=== PATIENT | female | born 1940 | race Caucasian/White ===

== ENCOUNTER 2017-07-13 21:09 | Emergency (ER) | payer MEDICARE, OTHER ==
[~2017-07-13] VITALS: Ht 154.9 cm; Wt 72.6 kg
--- OUTSIDE RECORDS SUMMARY | ~2017-07-13 | XMS | Clinical Summary ---
Demographics + + + | Address | [address] | | | [place] [address] | + + + | Home Phone [...] Author + + + | Author | [facility] | + + + | [...] Providers + +------+ + | Care Automotive Service Assistant Name | Role | Phone | + +------+ + | Farooq Wesley DO | PP | | + +------+ + Source Comments OSCAR is fully live on both [facility] Ambulatory and [facility] InPatient.[facility] Allergies + + + + + [...]
--- OUTSIDE RECORDS SUMMARY | ~2017-07-13 | XMS | Clinical Summary ---
Demographics + + + | Address | [address] | | | [place] [address] | + + + | Home Phone | | + + + | Preferred Language | Unknown | + + + | Marital Status | | + + + | Yarsani Affiliation | 1028 | + + + | Race | Unknown | + + + | Ethnic Group | Unknown | + + + Author + + + | Author | [facility] | + + + | Organization | [facility] | + + + | Address | Unknown | + + + | Phone | Unavailable | + + + Support + + +---------+ + | Name | Relationship | Address | Phone | + + +---------+ + | Prashanth Casey | ECON | Unknown | | + + +---------+ + Care Team Providers + +------+ + | Care Soda Maker Name | Role | Phone | [...] + + + + + + | [place] Extract | Hives | High | 09/14/20 [...] RE | | | | [place] [address] | | | IP-OP | | | [...] | Self | [birth year] | Home: | [address] | | | al/Fam | | 1941 | [phone] | [place] | | | [place] | | | [phone] | [phone] | + +--------+ +--------+ + +"
--- OUTSIDE RECORDS SUMMARY | ~2017-07-13 | XMS | Clinical Summary ---
Demographics + + + | Address | [address] | | | [place] [address] | + + + | Home Phone | | + + + | Preferred Language | Unknown | + + + | Marital Status | | + + + | Jew Affiliation | 1028 | + + + | Race | Unknown | + + + | Ethnic Group | Unknown | + + + Author + + + | Author | [facility] | | | and [place] | + + + | Organization | [facility] | | | and [place] | + + + | Address | Unknown | + + + | Phone | Unavailable | + + + Support + + + + + | Name | Relationship | Address | Phone | + + + + + | Prashanth Casey | ECON | [address] | | | | | [place] | | | | | [address] | | + + + + + Care Team Providers + +------+ + | Care Machine Sorter Name | Role | Phone | + [...] + + + + + + | [place] | Hives, Rash | Low | 03/04/20 [...] | MODA | [phone] | Indemn | [phone] | [address] [address] | | | HEALTH | | ity | [phone] | [place] [address] | | | MDCR | | | [...] | Self | [birth year] | Home: | [address] | | | al/Fam | | 1941 | [phone] | [place] | | | [place] | | | [phone] | [phone] | + +--------+ +--------+ + +
--- OUTSIDE RECORDS SUMMARY | ~2017-07-13 | XMS | Clinical Summary ---
Demographics + + + | Address | [address] | | | [place] [address] | + + + | Home Phone | | + + + | Preferred Language | Unknown | + + + | Marital Status | | + + + | Mormonism Affiliation | 1028 | + + + | Race | Unknown | + + + | Ethnic Group | Unknown | + + + Author + + + | Author | [facility] | + + + | Organization | [facility] | + + + | Address | Unknown | + + + | Phone | Unavailable | + + + Support + + +---------+ + | Name | Relationship | Address | Phone | + + +---------+ + | Prashanth Casey | ECON | Unknown | | + + +---------+ + Care Team Providers + +------+ + | Care Upholstery Parts Sorter Name | Role | Phone | [...] + + + + + + | [place] Extract | Hives | High | 09/14/20 [...] RE | | | | [place] [address] | | | IP-OP | | | [...] | Self | [birth year] | Home: | [address] | | | al/Fam | | 1941 | [phone] | [place] | | | [place] | | | [phone] | [phone] | + +--------+ +--------+ + +"
--- OUTSIDE RECORDS SUMMARY | ~2017-07-13 | XMS | Clinical Summary ---
Demographics + + + | Address | [address] | | | [place] [address] | + + + | Home Phone [...] + | Prashanth Casey | ECON | [address] | | | | | [place] | | | | | [address] | | + + + + + Care Team Providers + +------+ + | Care Stereotyper Apprentice Name | Role | Phone | [...] + + + + + + | [place] | Hives, Rash | Low | 03/04/20 [...] | MODA | [phone] | Indemn | [phone] | [address] [address] | | | HEALTH | | ity | [phone] | [place] [address] | | | MDCR | | | [...] | Self | [birth year] | Home: | [address] | | | al/Fam | | 1941 | [phone] | [place] | | | [place] | | | [phone] | [phone] | + +--------+ +--------+ + +
--- OUTSIDE RECORDS SUMMARY | ~2017-07-13 | XMS | Clinical Summary ---
Demographics + + + | Address | [address] | | | [place] [address] | + + + | Home Phone | | + + + | Preferred Language | Unknown | + + + | Marital Status | Single | + + + | Hinduism Affiliation | Unknown | + + + | Race | Unknown | + + + | Ethnic Group | Other Race | + + + Author + + + | Author | [facility] | + + + [...] Team Providers + +------+ + | Care Instrumentation Controls Engineer Name | Role | Phone | + +------+ + | Farooq Wesley DO | PP | | + +------+ + Source Comments OSCAR is fully live on both [facility] Ambulatory and [facility] InPatient.[facility] Allergies + + + + + [...]
[~2017-07-13 21:09] MED LIST: ANTIVERT25 MG PO; ASPIRIN EC81 MG PO; COUMADIN5 MG PO; CYCLOBENZAPRINE10 MG PO; CYCLOBENZAPRINE5 MG PO; DOK250 MG PO; HYDROCODON-ACE1 EA11 PO; LIPITOR10 MG PO; LOSARTAN-HCTZ1 EAC1 PO; LOVENOX30 MG SUB-Q; METFORMIN HCL1000 MG PO; METOPROLOL TART25 MG PO; MIRALAX17 GM PO; NEXIUM20 MG PO; NUCYNTA50 MG PO; OXYCODONE HCL5 MG PO; SILVADENE20 GM TOP; SYNTHROID75 MCG PO; XARELTO10 MG PO
[2017-07-13] MEDS ORDERED: CEPHALEXIN500 MG PO (22:10)
[2017-07-15] MEDS ORDERED: DECADRON4 MG PO (06:55)
== END 2017-07-13 22:29 | disposition home or self-care (01) ==
LOC: ED 21:09
DX: J98.8 Other specified respiratory disorders (principal); B97.89 Other viral agents as the cause of diseases classified elsewhere; H66.92 Otitis media, unspecified, left ear; I10 Essential (primary) hypertension; E03.9 Hypothyroidism, unspecified; E11.9 Type 2 diabetes mellitus without complications; Z88.8 Allergy status to other drugs, medicaments and biological substances; Z88.2 Allergy status to sulfonamides; Z91.018 Allergy to other foods; Z88.0 Allergy status to penicillin; Z79.899 Other long term (current) drug therapy; Z79.82 Long term (current) use of aspirin
CPT/HCPCS: 99283

== ENCOUNTER → 2017-07-14 | Emergency (ER) | payer MEDICARE, OTHER ==
[~2017-07-14] VITALS: Ht 154.9 cm; Wt 72.6 kg
[~2017-07-14] MED LIST changes: +CEPHALEXIN500 MG PO; +DECADRON4 MG PO
--- OUTSIDE RECORDS SUMMARY | ~2017-07-14 | XMS | Clinical Summary ---
Demographics + + + | Address | [address] | | | [place] [address] | + + + | Home Phone | | + + + | Preferred Language | Unknown | + + + | Marital Status | | + + + | Quaker Affiliation | 1028 | + + + | Race | Unknown | + + + | Ethnic Group | Unknown | + + + Author + + + | Author | [facility] | | | and [place] | + + + | Organization | [facility] | | | and [place] | + + + | Address | Unknown | + + + | Phone | Unavailable | + + + Support + + + + + | Name | Relationship | Address | Phone | + + + + + | Prashanth Casey | ECON | [address] | | | | | [place] | | | | | [address] | | + + + + + Care Team Providers + +------+ + | Care Sole Rounding Machine Operator Name | Role | Phone | + +------+ + | Farooq Wesley DO | PP | Unavailable | + +------+ + Allergies + + + + + + | Active Allergy | Reactions | Severity | Noted | Comments | | | | | Date | | + + + + + + | Cefazolin | Hives, Rash | Low | 03/04/20 | | | | | | 16 | | + + + + + + | Cephalexin | Hives | High | 12/05/19 | Hives in throat | | | | | 16 | | + + + + + + | Iodine | Hives | High | | IV contrast - "I | | | | | | was in the hospital | | | | | | and didn't wake up | | | | | | for three days" | + + + + + + | Meloxicam | Swelling, Rash | High | 03/04/20 | Swelling of throat | | | | | 16 | | + + + + + + | Penicillins | Hives, Swelling | High | | Throat swelling | + + + + + + | Rivaroxaban | Nausea And Vomiting, | High | 03/04/20 | AKA "Xeralto" | | | Swelling | | 16 | | + + + + + + | [place] | Hives, Rash | Low | 03/04/20 | | | | | | 16 | | + + + + + + | Sulfa Antibiotics | Hives, Swelling | High | 11/06/19 | | | | | | 10 | | + + + + + + Current Medications + + +-------+---------+------+------+-------+ | Prescription | Sig. | Disp. | Refills | Star | End | Statu | | | | | | t | Date | s | | | | | | Date | | | + + +-------+---------+------+------+-------+ | aspirin 81 MG | Take 81 mg by mouth | | | 11/21 | | Activ | | tablet | nightly. | | | 05/12 | | e | | | | | | 12 | | | + + +-------+---------+------+------+-------+ | levothyroxine | Take 75 mcg by mouth | | | 10/22 | | Activ | | (SYNTHROID, | Daily. | | | 06/09 | | e | | LEVOTHROID) 75 MCG | | | | 12 | | | | tablet | | | | | | | + + +-------+---------+------+------+-------+ | | Take 1 tablet by | | | | | Activ | | losartan-hydrochloro | mouth Daily. | | | | | e | | thiazide (HYZAAR) | | | | | | | | 100-25 MG per tablet | | | | | | | + + +-------+---------+------+------+-------+ | cyclobenzaprine | Take 5 mg by mouth | | | | | Activ | | (FLEXERIL) 5 MG | nightly as needed. | | | | | e | | tablet | | | | | | | + + +-------+---------+------+------+-------+ | EPINEPHrine | Inject 0.3 mg into | | | | | Activ | | (EPIPEN 2-HOLLEY) 0.3 | the muscle as | | | | | e | | mg/0.3 mL injection | needed. | | | | | | + + +-------+---------+------+------+-------+ | pirbuterol (MAXAIR | Inhale 2 puffs into | | | | | Activ | | AUTOHALER) 200 | the lungs 4 times | | | | | e | | mcg/puff inhaler | daily as needed. | | | | | | + + +-------+---------+------+------+-------+ | Multiple | Take 1 tablet by | | | | | Activ | | Vitamins-Minerals | mouth Daily. | | | | | e | | (MULTIVITAMIN PO) | | | | | | | + + +-------+---------+------+------+-------+ | nitroglycerin | Place 0.4 mg under | | | | | Activ | | (NITROSTAT) 0.4 mg | the tongue every 5 | | | | | e | | SL tablet | minutes as needed. | | | | | | + + +-------+---------+------+------+-------+ | ACCU-CHEK BROOKLYN | | | 6 | 09/1 | | Activ | | PLUS strip | | | | /20 | | e | | | | | | 16 | | | + + +-------+---------+------+------+-------+ | metoprolol | Take 25 mg by mouth | | 1 | 08/2 | | Activ | | succinate | Daily. | | | 0/20 | | e | | (TOPROL-XL) 25 mg 24 | | | | 17 | | | | hr tablet | | | | | | | + + +-------+---------+------+------+-------+ | Aromatic Inhalants | Inhale into the | | | | | Activ | | (INHALER | lungs. | | | | | e | | DECONGESTANT IN) | | | | | | | + + +-------+---------+------+------+-------+ | albuterol | Inhale 2 puffs into | | | | | Activ | | (VENTOLIN HFA) 90 | the lungs every 6 | | | | | e | | mcg/puff inhaler | hours as needed for | | | | | | | | Wheezing. | | | | | | + + +-------+---------+------+------+-------+ | cimetidine | Take 200 mg by mouth | | | | | Activ | | (TAGAMET HB) 200 MG | 4 times daily. | | | | | e | | tablet | | | | | | | + + +-------+---------+------+------+-------+ | Probiotic Product | Take by mouth. 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 | 03/04/2016 | + + + | GERD (gastroesophageal reflux disease) | 03/04/2016 | + + + | Dysphagia | 03/04/2016 | + + + | Diabetes mellitus type 2, controlled (HCC) | 12/05/2015 | + + + | HTN (hypertension) | 12/05/2015 | + + + | Hypothyroidism | 12/05/2015 | + + + | Scar | 12/05/2015 | + + + | OBSTRUCTIVE SLEEP APNEA | 07/01/2010 | + + + | HYPERLIPIDEMIA | | + + + | SLEEP APNEA | | + + + | SCOLIOSIS, THORACIC SPINE | | + + + | MYOFASCIAL PAIN SYNDROME | | + + + | CERVICALGIA | | + + + Immunizations + + + + | Name | Dates Previously Given | Next Due | + + + + | INFLUENZA, | 12/18/2015 | | | UNSPECIFIED | | | | FORMULATION | | | + + + + | PNEUMOCOCCAL | 01/07/2016 | | | CONJUGATE 13-VALENT | | | | (PCV13) | | | + + + + | TDAP, (ADOL/ADULT) | 12/18/2015 | | + + + + Family History + + +------+ + | Medical History | Relation | Name | Comments | + + +------+ + | Other (see comment) | Mother | | osteoporosis | + + +------+ + | Cancer | Paternal | | "stomach" | | | Grandmoth | | | | | er | | | + + +------+ + + +------+--------+ + | Relation | Name | Status | Comments | + +------+--------+ + | Mother | | | | + +------+--------+ + | Paternal Grandmother | | | | + +------+--------+ + Social History + +-------+ +--------+------+ | [...] + +---------+ + | Alcohol Use | Drinks/We | oz/Week | Comments | | | ek | | | + + +---------+ + | Yes | 1-2 | 0.6 - | | | | Glasses | 1.2 | | | | of wine | | | + + +---------+ + + + + | Sex Assigned at | Date Recorded | | | | + + + | Not on file | | + + + Last Filed Vital Signs + + + + | Vital Sign | Reading | Time Taken | + + + + | Blood Pressure | 171/72 | 02/03/2017 1045 PST | + + + + | Pulse | 52 | 02/03/2017 1035 PST | + + + + | Temperature | 36.1 C (97 F) | 02/03/2017 1017 PST | + + + + | Respiratory Rate | 14 | 02/03/2017 1045 PST | + + + + | Oxygen Saturation | 97% | 02/03/2017 1035 PST | + + + + | Inhaled Oxygen | - | - | | Concentration | | | + + + + | Weight | 72.7 kg (160 lb 3.2 | 02/23/20171526 PST | | | oz) | | + + + + | Height | 153.7 cm (5' 0.5") | 02/23/20171526 PST | + + + + | Body Mass Index | 30.77 | 02/23/20171526 PST | + + + + Plan of Treatment + + + + + | Health Maintenance | Due Date | Last Done | Comments | + + + + + | Diabetic Eye Exam | | | | | (Bi-Annually) | 9 | | | + + + + + | Diabetic Foot Exam | | | | | | 9 | | | + + + + + | Hemoglobin A1c Q3 | | | | | Months | 9 | | | + + + + + | Vaccine: | | 01/07/2016 | | | Pneumococcal 65+ | 7 | | | | Low/Medium Risk (2 | | | | | of 2 - PPSV23) | | | | + + + + + | Vaccine: Influenza | | 12/18/2015 | | | (Season Ended) | 8 | | | + + + + + | Vaccine: | | 12/18/2015 | | | Dtap/Tdap/Td (2 - | 6 | | | | Td) | | | | + + + + + Results Not on filefrom Last 3 Months Insurance + +--------+ +--------+ + + | Payer | Benefi | Subscriber | Type | Phone | Address | | | t Plan | ID | | | | | | / | | | | | | | Group | | | | | + +--------+ +--------+ + + | MEDICARE | MEDICA | xxxxxxxxxx | Medica | [phone]- | | | | RE | | re | [phone] | | | | PART A | | | | | | | AND B | | | | | + +--------+ +--------+ + + | MODA | MODA | xxxxxxxxx | Indemn | [phone] | [address] [address] | | | HEALTH | | ity | [phone] | [place] [address] | | | MDCR | | | | | | | SUPPL | | | | | + +--------+ +--------+ + + + +--------+ +--------+ + + | Guarantor Name | Accoun | Relation to | Date | Phone | Billing Address | | | t Type | Patient | of | | | | | | | | | | + +--------+ +--------+ + + | LITA CASEY | Person | Self | [birth year] | Home: | [address] | | | al/Fam | | 1941 | [phone] | [place] | | | [place] | | | [phone] | [phone] | + +--------+ +--------+ + +
--- OUTSIDE RECORDS SUMMARY | ~2017-07-14 | XMS | Clinical Summary ---
Demographics + + + | Address | [address] | | | [place] [address] | + + + | Home Phone [...] Author + + + | Author | [facility] | + + + | Organization | [facility] | + + + | Address | Unknown | + + + | Phone | Unavailable | + + + Support + + +---------+ + | Name | Relationship | Address | Phone | + + +---------+ + | NONE,NONE | ECON | Unknown | Unavailable | + + +---------+ + Care Team Providers + +------+ + | Care Round Kiln Drawer Name | Role | Phone | + +------+ + | Farooq Wesley DO | PP | | + +------+ + Source Comments OSCAR is fully live on both [facility] Ambulatory and [facility] InPatient.[facility] Allergies + + + + + + [...] | | | + + +-------+---------+------+------+-------+ | PREVACID 30 MG CAP | 1 po daily | | | | | Activ | | | | | | | | e | + + +-------+---------+------+------+-------+ | LIPITOR 10 MG TAB | take 1 tab every | | | | | Activ | | | thursday, thursday | | | | | e | | | and thursday | | | | | | + + +-------+---------+------+------+-------+ | ASPIRIN 81 MG TAB | 1 po daily | | | | | Activ | | | | | | | | e | + + +-------+---------+------+------+-------+ | MULTIPLE VITAMIN | 1 po daily | | | | | Activ | | TAB | | | | | | e | + + +-------+---------+------+------+-------+ | | Take 1 Tab by mouth | | | | | Activ | | lisinopril-hydrochlo | once daily. | | | | | e | | rothiazide 20-25 mg | | | | | | | | Oral tablet | | | | | | | + + +-------+---------+------+------+-------+ | metFORMIN SR 1,000 | Take 1,000 mg by | | | | | Activ | | mg Oral tablet,ER | mouth two times | | | | | e | | satinder.retention 24 hr | daily. | | | | | | + + +-------+---------+------+------+-------+ | levothyroxine | Take 75 mcg by mouth | | | | | Activ | | (SYNTHROID) 75 mcg | once daily. | | | | | e | | Oral tablet | | | | | | | + + +-------+---------+------+------+-------+ Active Problems + [...] Pressure | 116/77 | 01/07/2012 3:21 PM PDT | + + + + | Pulse | 80 | 01/07/2012 3:21 PM PDT | + + + + | Temperature | - | - | + + + + | Respiratory Rate | - | - | + + + + | Oxygen Saturation | - | - | + + + + | Inhaled Oxygen | - | - | | Concentration | | | + + + + | Weight | 84.8 kg (187 lb) | 01/07/2012 3:21 PM PDT | + + + + | Height | 156.2 cm (5' 1.5") | 01/07/2012 3:21 PM PDT | + + + + | Body Mass Index | 34.76 | 01/07/2012 3:21 PM PDT | + + + + Plan of Treatment + + + + + | Health Maintenance | Due Date | Last Done | Comments | + + + + + | INFLUENZA VACCINE | | | | | (FLU SHOT) | 8 | | | + + + + + Results Not on filefrom Last 3 Months
--- OUTSIDE RECORDS SUMMARY | ~2017-07-14 | XMS | Clinical Summary ---
Demographics + + + | Address | [address] | | | [place] [address] | + + + | Home Phone | | + + + | Preferred Language | Unknown | + + + | Marital Status | | + + + | Cheondoism Affiliation | 1028 | + + + | Race | Unknown | + + + | Ethnic Group | Unknown | + + + Author + + + | Author | [facility] | + + + | Organization | [facility] | + + + | Address | Unknown | + + + | Phone | Unavailable | + + + Support + + +---------+ + | Name | Relationship | Address | Phone | + + +---------+ + | Prashanth Casey | ECON | Unknown | | + + +---------+ + Care Team Providers + +------+ + | Care Cream Separator Operator Name | Role | Phone | + +------+ + | Morris Wesley DO | PP | | + +------+ + Allergies + + + + + + | Active Allergy | Reactions | Severity | Noted | Comments | | | | | Date | | + + + + + + | Cefazolin | Hives | High | 12/05/19 | | | | | | 16 | | + + + + + + | Iodinated Diagnostic | Anaphylaxis | High | 12/05/19 | | | Agents | | | 16 | | + + + + + + | Cephalexin | Hives | High | 09/14/20 | Hives in throat | | | | | 16 | | + + + + + + | Penicillins | Hives | High | 09/14/20 | Hives in throat | | | | | 16 | | + + + + + + | Superior Extract | Hives | High | 09/14/20 | | | | | | 16 | | + + + + + + | Rivaroxaban | Hives | High | 09/14/20 | Hives in throat | | | | | 16 | | + + + + + + Current Medications + + +-------+---------+------+------+-------+ | Prescription | Sig. | Disp. | Refills | Star | End | Statu | | | | | | t | Date | s | | | | | | Date | | | + + +-------+---------+------+------+-------+ | esomeprazole | Take 20 mg by mouth | | | | | Activ | | (NEXIUM) 20 MG | every morning before | | | | | e | | capsule | breakfast. | | | | | | + + +-------+---------+------+------+-------+ | aspirin 81 MG | Take 81 mg by mouth | | | | | Activ | | tablet | daily. | | | | | e | + + +-------+---------+------+------+-------+ | | Take 1 tablet by | | | | | Activ | | losartan-hydrochloro | mouth daily. | | | | | e | | thiazide (HYZAAR) | | | | | | | | 100-25 MG per tablet | | | | | | | + + +-------+---------+------+------+-------+ | metoprolol | Take 25 mg by mouth | | | | | Activ | | (TOPROL-XL) 25 MG 24 | daily. | | | | | e | | hr tablet | | | | | | | + + +-------+---------+------+------+-------+ | metFORMIN | Take 1,000 mg by | | | | | Activ | | (GLUCOPHAGE) 1000 MG | mouth daily. | | | | | e | | tablet | | | | | | | + + +-------+---------+------+------+-------+ | scopolamine | Place 1 patch onto | | | | | Activ | | (TRANSDERM-SCOP) 1 | the skin every third | | | | | e | | mg/3days patch | day. Apply to | | | | | | | | hairless area of | | | | | | | | skin behind the ear. | | | | | | + + +-------+---------+------+------+-------+ | | Take 1 tablet by | | | | | Activ | | HYDROcodone-acetamin | mouth every 6 (six) | | | | | e | | ophen (NORCO) 5-325 | hours as needed for | | | | | | | MG per tablet | Pain. | | | | | | + + +-------+---------+------+------+-------+ | levothyroxine | Take 75 mcg by mouth | | | | | Activ | | (SYNTHROID) 75 MCG | every morning | | | | | e | | tablet | before breakfast. | | | | | | + + +-------+---------+------+------+-------+ | albuterol | Inhale 2 puffs into | | | | | Activ | | (PROVENTIL | the lungs every 4 | | | | | e | | HFA;VENTOLIN HFA) | (four) hours as | | | | | | | 108 (90 BASE) | needed for Wheezing. | | | | | | | MCG/ACT inhaler | | | | | | | + + +-------+---------+------+------+-------+ | EPINEPHrine 0.3 | Inject 0.3 mg into | | | | | Activ | | MG/0.3ML | the muscle as | | | | | e | | auto-injector | needed. | | | | | | + + +-------+---------+------+------+-------+ | Multiple | Take 1 tablet by | | | | | Activ | | Vitamins-Minerals | mouth daily. | | | | | e | | (MULTIVITAMIN WITH | | | | | | | | MINERALS) tablet | | | | | | | + + +-------+---------+------+------+-------+ Active Problems + + + | Problem | Noted Date | + + + | HTN (hypertension) | 12/05/2015 | + + + | Hypothyroidism | 12/05/2015 | + + + | Diabetes mellitus type 2, controlled | 12/05/2015 | + + + | Scar | 12/05/2015 | + + + Family History + + +------+ + | Medical History | Relation | Name | Comments | + + +------+ + | Cancer | Maternal | | | | | [...] + + +---------+ + | Yes | 2 | 1.2 | 1 glass of wine 2x/ week | | | Glasses | | | | | of wine | [...] + + + | Blood Pressure | 168/80 | 12/05/2015 8:20 AM PDT | + + + + | Pulse | 67 | 12/05/2015 8:20 AM PDT | + + + + | Temperature | 36.6 C (97.8 F) | 12/05/2015 8:20 AM PDT | + + + + | Respiratory Rate | 16 | 12/05/2015 8:20 AM PDT | + + + + | Oxygen Saturation | - | - | + + + + | Inhaled Oxygen | - | - | | Concentration | | | + + + + | Weight | - | - | + + + + | Height | - | - | + + + + | Body Mass Index | - | - | + + + + Plan of Treatment Not on file Results Not on filefrom Last 3 Months Insurance + +--------+ +------+-------+ + | Payer | Benefi | Subscriber | Type | Phone | Address | | | t Plan | ID | | | | | | / | | | | | | | Group | | | | | + +--------+ +------+-------+ + | MEDICARE | MEDICA | xxxxxxxxxx | | | [address] | | | RE | | | | [place] [address] | | | IP-OP | | | | | + +--------+ +------+-------+ + | ODS HEALTH PLAN | ODS | xxxxxxxxx | | | | | | HEALTH | | | | | | | PLAN | | | | | + +--------+ +------+-------+ + + +--------+ +--------+ + + | Guarantor Name | Accoun | Relation to | Date | Phone | Billing Address | | | t Type | Patient | of | | | | | | | | | | + +--------+ +--------+ + + | LITA CASEY | Person | Self [birth year] | Home: | [address] | | | al/Fam | | 1941 | [phone] | [place] | | | [place] | | | [phone] | [phone] | + +--------+ +--------+ + +"
--- OUTSIDE RECORDS SUMMARY | ~2017-07-14 | XMS | Clinical Summary ---
Demographics + + + | Address | [address] | | | [place] [address] | + + + | Home Phone [...] Author + + + | Author | [facility] | + + + [...] Team Providers + +------+ + | Care Stone Gluer Name | Role | Phone | + +------+ + | Farooq Wesley DO | PP | | + +------+ + Source Comments OSCAR is fully live on both [facility] Ambulatory and [facility] InPatient.[facility] Allergies + + + + + + [...]
--- OUTSIDE RECORDS SUMMARY | ~2017-07-14 | XMS | Clinical Summary ---
Demographics + + + | Address | [address] | | | [place] [address] | + + + | Home Phone [...] + | Prashanth Casey | ECON | [address] | | | | | [place] | | | | | [address] | | + + + + + Care Team Providers + +------+ + | Care Specialties Operator Name | Role | Phone | [...] + + + + + + | [place] | Hives, Rash | Low | 03/04/20 [...] | MODA | xxxxxxxxx | Indemn | [phone] | [address] [address] | | | HEALTH | | ity | [phone] | [place] [address] | | | MDCR | | | [...] | Self | [birth year] | Home: | [address] | | | al/Fam | | 1941 | [phone] | [place] | | | [place] | | | [phone] | [phone] | + +--------+ +--------+ + +
--- OUTSIDE RECORDS SUMMARY | ~2017-07-14 | XMS | Clinical Summary ---
Demographics + + + | Address | [address] | | | [place] [address] | + + + | Home Phone | | + + + | Preferred Language | Unknown | + + + | Marital Status | | + + + | Taoism Affiliation | 1028 | + + + | Race | Unknown | + + + | Ethnic Group | Unknown | + + + Author + + + | Author | [facility] | + + + | Organization | [facility] | + + + | Address | Unknown | + + + | Phone | Unavailable | + + + Support + + +---------+ + | Name | Relationship | Address | Phone | + + +---------+ + | Prashanth Casey | ECON | Unknown | | + + +---------+ + Care Team Providers + +------+ + | Care Card Maker Name | Role | Phone | [...] + + + + + + | Imogene Extract | Hives | High | 09/14/20 [...] RE | | | | [place] [address] | | | IP-OP | | | [...] | Self | [birth year] | Home: | [address] | | | al/Fam | | [phone] | [phone] | [place] | | | [place] | | | [phone] | [address] | + +--------+ +--------+ + +"
== END ==
LOC: ED 20:42
DX: J02.9 Acute pharyngitis, unspecified (principal); I10 Essential (primary) hypertension; E11.9 Type 2 diabetes mellitus without complications; E03.9 Hypothyroidism, unspecified; Z86.718 Personal history of other venous thrombosis and embolism; Z91.041 Radiographic dye allergy status; Z88.2 Allergy status to sulfonamides; Z91.018 Allergy to other foods; Z88.0 Allergy status to penicillin; Z91.09 Other allergy status, other than to drugs and biological substances; Z88.8 Allergy status to other drugs, medicaments and biological substances; Z79.899 Other long term (current) drug therapy; Z79.82 Long term (current) use of aspirin
CPT/HCPCS: 70450; 70490; 80053; 81001; 85025; 86308; 87088; 96361; 96374; 96376; 99284; J1100; J7030

== ENCOUNTER → 2019-02-09 | Emergency (ER) | payer MEDICARE, OTHER ==
[~2019-02-09] VITALS: Ht 154.9 cm; Wt 72.6 kg
[~2019-02-09] MED LIST changes: +EPIPEN 2-P0.3 MG/0.3 IM
--- OUTSIDE RECORDS SUMMARY | ~2019-02-09 | XMS | Encounter Summary ---
Demographics + + + | Address | [address] | | | [place] [address] | + + + | Home Phone | | + + + | Preferred Language | Unknown | + + + | Marital Status | | + + + | Yarsani Affiliation | 1028 | + + + | Race | Unknown | + + + | Ethnic Group | Unknown | + + + Author + + + | Author | [facility] | | | and [place] | + + + | Organization | [facility] | | | and [place] | + + + | Address | Unknown | + + + | Phone | Unavailable | + + + Support + + + + + | Name | Relationship | Address | Phone | + + + + + | Prashanth Vuong | ECON | [address] | | | | | [place] | | | | | [address] | | + + + + + Care Team Providers + +------+ + | Care Security Sales Manager Name | Role | Phone | + +------+ + | Farooq Wesley DO | PCP | | + +------+ + Encounter Details +--------+ + + + + | Date | Type | Department | Care Team | Description | +--------+ + + + + | 04/15/ | Episode | [facility] [place] | [facility] | | | 2019 | Changes | GASTROENTEROLOGY | [facility] | | | | | [address] [facility] | | | | | | [address] | | | | | | [address] | | | | | | [phone] | | | +--------+ + + + + Social History + +-------+ +--------+------+ | Tobacco Use | Types | Packs/Day | Years | Date | | | | | Used | | + +-------+ +--------+------+ | Never Smoker | | | | | + +-------+ +--------+------+ + +---+---+---+ | Smokeless Tobacco: | | | | | Never Used | | | | + +---+---+---+ + + + + + | Alcohol Use | Drinks/Week | oz/Week | Comments | + + + + + | Yes | 1-2 Glasses of | 1.0 - 2.0 | | | | wine | | | + + + + + + + + | Sex Assigned at | Date Recorded | | | | + + + | Not on file | | + + + + + + + | Job Start Date | Occupation | Industry | + + + + | Not on file | Not on file | Not on file | + + + + + + + + | Travel History | Travel Start | Travel End | + + + + + + | No recent travel history available. | + + documented as of this encounter Plan of Treatment +--------+---------+ + + + | Date | Type | Specialty | Care Team | Description | +--------+---------+ + + + | 02/09/ | Office | Primary Care | Farooq Wesley | | | 2018 | Visit | | E, DO [address] | | | | | | [place] | | | | | | [address] | | | | | | [phone] | | | | | | | | +--------+---------+ + + + documented as of this encounter Visit Diagnoses Not on filedocumented in this encounter"
--- OUTSIDE RECORDS SUMMARY | ~2019-02-09 | XMS | Encounter Summary ---
Demographics + + + | Address | [address] | | | [place] [address] | + + + | Home Phone | | + + + | Preferred Language | Unknown | + + + | Marital Status | | + + + | Sabianist Affiliation | 1028 | + + + | Race | Unknown | + + + | Ethnic Group | Unknown | + + + Author + + + | Author | [facility] | | | and [place] | + + + | Organization | [facility] | | | and [place] | + + + | Address | Unknown | + + + | Phone | Unavailable | + + + Support + + + + + | Name | Relationship | Address | Phone | + + + + + | Prashanth Vuong | ECON | [address] | | | | | [place] | | | | | [address] | | + + + + + Care Team Providers + +------+ + | Care Job Setter Name | Role | Phone | + +------+ + | Farooq Wesley DO | PCP | | + +------+ + Reason for Referral Evaluate & Treat (Routine) +--------+ + + + + + | Status | Reason | Specialty | Diagnoses / | Referred By | Referred To | | | | | Procedures | Contact | Contact | +--------+ + + + + + | Closed | Specialty | Gastroenterol | Diagnoses | Sandoval, | Sandoval, | | | Services | ogy | Dysphagia | Curt P, | Curt Vazquez MD | | | Required | | Procedures | MD [address] | | | | [place] UPPER GI | [address] | | | | | ENDOSCOPY,DI | [address] [place] [address] | | | | | [place] | [place] | [place] | | | | | UPPER GI | [address] | [address] Phone: | | | | | ENDOSCOPY,BI | Phone: | [phone] | | | | | OPSY | [phone] | Fax: | | | | | | Fax: | [phone] | | | | | | [phone] | | +--------+ + + + + + Reason for Visit + + + | Reason | Comments | + + + | Abdominal Pain | | + + + | Dysphagia | | + + + Encounter Details +--------+---------+ + + + | Date | Type | Department | Care Team | Description | +--------+---------+ + + + | 04/02/ | Office | [facility] [place] | Curt Sandoval, | Dysphagia (Primary | | 2012 | Visit | GASTROENTEROLOGY | [address] | Dx) | | | | [address] [place] | [address] [place], | | | | | [address] [place], [place] | [place] [address] | | | | | [address] | [phone] | | | | | [phone] | | | +--------+---------+ + + + [...] | | | + +---+---+---+ + + +---------+ + | Alcohol Use | Drinks/Week | oz/Week | Comments | + + +---------+ + | Yes | | | one glass of wine at | | | | | night | + + +---------+ + + + + | Sex Assigned [...] + + + | Blood Pressure | 142/72 | 04/02/2012 2:27 PM | | | | | PST | | + + + + + | Pulse | 68 | 04/02/2012 2:27 PM | | | | | PST | | + + + + + | Temperature | - | - | | + + + + + | Respiratory Rate | - | - | | + + + + + | Oxygen Saturation | - | - | | + + + + + | Inhaled Oxygen | - | - | | | Concentration | | | | + + + + + | Weight | 86.2 kg (190 lb) | 04/02/2012 2:27 PM | | | | | PST | | + + + + + | Height | 156.2 cm (5' 1.5") | 04/02/2012 2:27 PM | | | | | PST | | + + + + + | Body Mass Index | 35.32 | 04/02/2012 2:27 PM | | | | | PST | | + + + + + documented in this encounter Progress Notes Curt Sandoval MD - 04/02/2012 3:06 PM PSTFormatting of this note might be different fr om the original. Subjective: Patient ID: Lita Vuong is a 71 y.o. female. HPI Comments: See dictation Abdominal Pain Associated symptoms include arthralgias. Filed Vitals: 04/02/12 1427 BP: 142/72 Pulse: 68 PainSc: 2 PainLoc: Abdomen Allergies Allergen Reactions Iodine Penicillins Sulfa Antibiotics Past Medical History Diagnosis Date Hypertension Diabetes mellitus GERD (gastroesophageal reflux disease) H/O thrombosis Hyperlipidemia Sleep apnea Asthma Hyperlipidemia Rotator cuff tendonitis Past Surgical History Procedure Date Joint replacement May, Hysterectomy Colonoscopy Upper gastrointestinal endoscopy Family History Problem Relation Age of Onset Other (See Comment) Mother osteoporosis History Social History Marital Status: Spouse Name: N/A Number of Children: N/A Years of Education: N/A Occupational History Not on file. Social History Main Topics Smoking status: Never Smoker Smokeless tobacco: Never Used Alcohol Use: Yes one glass of wine at night Drug Use: No Sexually Active: Not on file Other Topics Concern Not on file Social History Narrative No narrative on file Review of Systems Constitutional: Positive for fatigue and unexpected weight change. HENT: Hoarseness Respiratory: Positive for apnea. Cardiovascular: Negative. Gastrointestinal: Positive for abdominal pain. Musculoskeletal: Positive for arthralgias. Neurological: Negative. Psychiatric/Behavioral: Negative. Objective: Physical Exam Constitutional: She is oriented to person, place, and time. She appears well-developed and well-nourished. HENT: Head: Normocephalic and atraumatic. Eyes: Pupils are equal, round, and reactive to light. Neck: Neck supple. No tracheal deviation present. No thyromegaly present. Cardiovascular: Normal rate and regular rhythm. Pulmonary/Chest: Effort normal and breath sounds normal. Abdominal: Soft. Bowel sounds are normal. She exhibits no distension and no mass. There is no tenderness. There is no rebound and no guarding. Lymphadenopathy: She has no cervical adenopathy. Neurological: She is alert and oriented to person, place, and time. Skin: Skin is warm and dry. Psychiatric: She has a normal mood and affect. Assessment: See dictation Plan: See dictation Curt Hester MD - 04/02/2012 12:00 AM [facility] GASTROENTEROLOGY [address] [facility] [place] [address] FAX: [phone] OFFICE VISIT HISTORY OF PRESENT ILLNESS: The patient is a 71-year-old female who comes in with swallowin g issues. She has known hiatal hernia, has had a Schatzki ring which she gets dilated. Last exam was in 07/2010. Nonobstructing Schatzki ring was dilated to 18, 19 and then 20 mm thr ough the scope. Her symptoms began in September when she was found to have a large thyroid nodul e. This was removed in September. Then in November she felt like she could not clear her throat and developed some hoarseness. She has had extensive workup and no specific etiology for h er hoarseness or the throat sensations have been found. She apparently had a cine swallowin g esophagram, which was unremarkable. She has no history of strokes. The thyroid nodule was on the right side. Her vocal cord paralysis is on the left side. Lately she has had more p roblems with feeling like she cannot clear her throat. She does not get obstructed with kristal d. She does not regurgitate food. She does not cough, but sometimes these episodes where fe eling like things are still in the throat cause her to drink lots of liquids to try to wash it down and often times she will progress to chest pain, which she identifies as esophagea l spasm, and on 2 episodes she has vomited. Symptoms are worse with meat and bread. She has seen some relief with increasing her Prevacid from 15 mg daily to 30 in the morning and 15 in the evening. She denies actual heartburn symptoms. Her appetite is decreased, weight is stable. Energy level is down somewhat. ASSESSMENT 1. MULTIFACTORIAL DYSPHAGIA SYMPTOMS. 2. KNOWN HIATAL HERNIA AND SCHATZKI RING. 3. LEFT VOCAL CORD PARALYSIS. 4. RECENT SURGERY ON THE RIGHT LOBE OF THE THYROID. PLAN: The thyroid surgery, the vocal cord issue and the throat sensation would all seem to go together as a neuromuscular type of situation; however, the situation is complicated bec ause she does have a history of esophageal related dysphagia and reflux. She had seen benef it from nitroglycerin for the esophageal spasm. She is out of that, I have refilled nitrogl ycerin 0.4 mg sublingually to use p.r.n. esophageal spasm. I believe repeat upper endoscopy with possible dilation would be helpful and I will increase her Prevacid to 30 mg twice a day. Will also obtain the cine esophagram report to see if any findings are relevant on nika t report. Curt Sandoval M.D. KALEY / FLOR JOB #: [id number] signed by Curt Sandoval MD at 04/02/2012 5:00 PM Dane ulloa in this encounter Plan of Treatment +--------+---------+ + + + | Date | Type | Specialty | Care Team | Description | +--------+---------+ + + + | 02/09/ | Office | Primary Care | Farooq Wesley | | | 2018 | Visit | | [place] | | | | | | [place] | | | | | | [address] | | | | | | [phone] | | | | | | | | +--------+---------+ + + + + + +--------+ + + | Name | Type | Priori | Associated Diagnoses | Order Schedule | | | | ty | | | + + +--------+ + + | Ambulatory referral | Outpatient | Routin | Dysphagia | Expected: | | to Gastroenterology | Referral | e | | 05/07/2012, Expires: | | | | | | 04/02/2013 | + + +--------+ + + documented as of this encounter Visit Diagnoses + + | Diagnosis | + + | Dysphagia - Primary Dysphagia, unspecified | + + documented in this encounter
--- OUTSIDE RECORDS SUMMARY | ~2019-02-09 | XMS | Encounter Summary ---
Demographics + + + | Address | [address] | | | [place] [address] | + + + | Home Phone | | + + + | Preferred Language | Unknown | + + + | Marital Status | | + + + | Advent Affiliation | 1028 | + + + | Race | Unknown | + + + | Ethnic Group | Unknown | + + + Author + + + | Author | [facility] | | | and [place] | + + + | Organization | [facility] | | | and [place] | + + + | Address | Unknown | + + + | Phone | Unavailable | + + + Support + + + + + | Name | Relationship | Address | Phone | + + + + + | Prashanth Vuong | ECON | [address] | | | | | [place] | | | | | [address] | | + + + + + Care Team Providers + +------+ + | Care Telesales Manager Name | Role | Phone | + +------+ + | Farooq Wesley DO | PCP | | + +------+ + Encounter Details +--------+ + + + + | Date | Type | Department | Care Team | Description | +--------+ + + + + | 02/03/ | Anesthesia | [facility] | Dash Mcclendon MD | | | 2017 | Event | [facility] | [address] | | | | | [address] | [place], [place] | | | | | [place], [place] | [address] | | | | | [address] | | | | | | [phone] | | | +--------+ + + + + Anesthesia Record + + + + + | Procedure Name | Responsible | Anesthesia Start | Anesthesia Stop Time | | | Anesthesiologist | Time | | + + + + + | EGD (N/A Mouth) | Dash Mcclendon MD | 02/03/1758 | 02/03/17 1018 | + + + + + +----+---+ + + | Da | T | Event | Comment | | te | i | | | | | m | | | | | e | | | +----+---+ + + | 11 | 0 | | | | /1 | 9 | | | | 4/ | 5 | | | | 20 | 4 | | | | 17 | | | | +----+---+ + + | | 0 | An Checkout | Pre-use anesthesia machine/equipment checkout. | | | 9 | | | | | 5 | | | | | 8 | | | +----+---+ + + | | 0 | An Start | Reassessment prior to anesthesia induction/procedure. | | | 9 | | | | | 5 | | | | | 8 | | | +----+---+ + + | | 1 | Pre-Procedu | | | | 0 | ral Timeout | | | | 0 | Completed | | | | 1 | | | +----+---+ + + | | 1 | An | | | | 0 | Induction | | | | 0 | | | | | 2 | | | +----+---+ + + | | 1 | First | | | | 0 | Inc/Proc St | | | | 0 | | | | | 3 | | | +----+---+ + + | | 1 | an stop | | | | 0 | data | | | | 1 | | | | | 1 | | | +----+---+ + + | | 1 | An Stop | Patient handed off to recovery nurse. | | | 1 | | | | | 8 | | | +----+---+ + + +------+ | Meds | +------+ + + + | Name | Total | + + + | propofol | 100 mg | + + + | propofol | 32.63 mg | + + + | lidocaine 1% | 2 mL | + + + | lactated ringers (LR) infusion | 100 mL | + + + + + | Name | + + | O2 Flow Rate (L/Min) | + + + + | No blood administrations on file. | + + +--------+ + + + | Type | Details | Placement | Removal | +--------+ + + + | Periph | 02/03/17; 0920; Right; | 02/03/17 0920 by | 02/03/17 1040 by | | eral | Antecubital; [id number] | Ruddy K | Hoang Cruz RN | | IV | catheter system; 20 gauge; Other | Sumerlin-King, RN | | | | (see comment); 0; distraction; no | | | | | longer indicated; healing within | | | | | expectations; 02/03/17; 1040 | | | +--------+ + + + documented in this encounter Social History + +-------+ +--------+------+ | Tobacco [...] [place] | | | | | | [address] | | | | | | [phone] | | | | | | | | +--------+---------+ + + + documented as of this encounter Visit Diagnoses Not on filedocumented in this encounter Administered Medications + +---------+ +------+------+------+ | Medication Order | MAR | Action | Dose | Rate | Site | | | Action | Date | | | | + +---------+ +------+------+------+ | lactated ringers (LR) infusion | New Bag | 02/04/20 | | | | | at 100 mL/hr, Intravenous, | | 17 9:45 | | | | | CONTINUOUS, Starting Thu02/03/17 | | AM PST | | | | | at 0930, Pre-op | | | | | | + +---------+ +------+------+------+ +---+---+ | | | +---+---+ + +-------+ +-------+---+---+ | lidocaine (PF) 1% injection | Given | 02/04/20 | 2 mLs | | | | Infiltration, PRN, Starting Thu | | 17 10:02 | | | | | 02/03/17 at 1002, Anesthesia | | AM PST | | | | | Intra-op | | | | | | + +-------+ +-------+---+---+ +---+---+ | | | +---+---+ + +-------+ +-------+---+---+ | propofol (DIPRIVAN) injection | Given | 02/04/20 | 50 mg | | | | Intravenous, PRN, Starting Tue | | 17 10:03 | | | | | 02/03/17 at 1002, Anesthesia | | AM PST | | | | | Intra-op | | | | | | + +-------+ +-------+---+---+ +-------+ +-------+---+---+ | Given | 02/04/20 | 50 mg | | | | | 17 10:02 | | | | | | AM PST | | | | +-------+ +-------+---+---+ +---+---+ | | | +---+---+ + +---------+ + +-------+---+ | propofol (DIPRIVAN) injection | New Bag | 02/04/20 | 75 | 32.6 | | | Intravenous, CONTINUOUS PRN, | | 17 10:04 | mcg/kg/m | mL/hr | | | Starting 02/03/17 at 1004, | | AM PST | in | | | | Anesthesia Intra-op | | | | | | + +---------+ + +-------+---+ +---+---+ | | | +---+---+ documented in this encounter"
--- OUTSIDE RECORDS SUMMARY | ~2019-02-09 | XMS | Encounter Summary ---
Demographics + + + | Address | [address] | | | [place] [address] | + + + | Home Phone | | + + + | Preferred Language | Unknown | + + + | Marital Status | | + + + | Gnosticist Affiliation | 1028 | + + + | Race | Unknown | + + + | Ethnic Group | Unknown | + + + Author + + + | Author | [facility] | | | and [place] | + + + | Organization | [facility] | | | and [place] | + + + | Address | Unknown | + + + | Phone | Unavailable | + + + Support + + + + + | Name | Relationship | Address | Phone | + + + + + | Prashanth Vuong | ECON | [address] | | | | | [place] | | | | | [address] | | + + + + + Care Team Providers + +------+ + | Care Lieutenant Ballistics Name | Role | Phone | + +------+ + | Farooq Wesley DO | PCP | | + +------+ + Reason for Visit +---------+ + | Reason | Comments | +---------+ + | Results | | +---------+ + Encounter Details +--------+ + + + + | Date | Type | Department | Care Team | Description | +--------+ + + + + | 09/15/ | Telephone | [facility] | Farooq Wesley | Results | | 2019 | | [facility] | E, DO [address] | | | | | [facility] [address] | [place], [place] | | | | [address] [facility], | [address] | | | | | [place] [address] | [phone] | | | | | [phone] | | | +--------+ + + + [...] Care | Farooq Wesley | | | 2019 | Visit | | E, DO [address] | | | | | | [place] | | | | | | [address] | | | | | | [phone] | | | | | | | | +--------+---------+ + + + documented as of this encounter Visit Diagnoses Not on filedocumented in this encounter"
--- OUTSIDE RECORDS SUMMARY | ~2019-02-09 | XMS | Encounter Summary ---
Demographics + + + | Address | [address] | | | [place] [address] | + + + | Home Phone | | + + + | Preferred Language | Unknown | + + + | Marital Status | | + + + | Restorationism Affiliation | 1028 | + + + [...] + | Prashanth Vuong | ECON | [address] | | | | | [place] | | | | | [address] | | + + + + + Care Team Providers + +------+ + | Care Sound Effects Technician Name | Role | Phone | + +------+ + | Farooq Wesley DO | PCP | | + +------+ + Reason for Visit + + + | Reason | Comments | + + + | Results, Pathology | egd | + + + Encounter Details +--------+ + + + + | Date | Type | Department | Care Team | Description | +--------+ + + + + | 03/11/ | Telephone | [facility] | Silvano Kaiser MD | Results, Pathology | | 2016 | | GASTROENTEROLOGY | [address] | (egd) | | | | [address] [place] | [address] [place], [place] | | | | | [address] [place], [place] | [address] | | | | | [address] | | | | | | [phone] | | | +--------+ + + + [...] + + +---------+ + | Yes | 5 Glasses of wine | 5.0 | one glass of wine at | [...] | | 2018 | Visit | | [address] [place] [address] | | | | | | [place] | | | | | | [address] | | | | | | [phone] | | | | | | | | +--------+---------+ + + + documented as of this encounter Visit Diagnoses Not on filedocumented in this encounter"
--- OUTSIDE RECORDS SUMMARY | ~2019-02-09 | XMS | Encounter Summary ---
Demographics + + + | Address | [address] | | | [place] [address] | + + + | Home Phone | | + + + | Preferred Language | Unknown | + + + | Marital Status | | + + + | Episcopal Affiliation | 1028 | + + + | Race | Unknown | + + + | Ethnic Group | Unknown | + + + Author + + + | Author | [facility] | | | and [place] | + + + | Organization | [facility] | | | and [place] | + + + | Address | Unknown | + + + | Phone | Unavailable | + + + Support + + + + + | Name | Relationship | Address | Phone | + + + + + | Prashanth Vuong | ECON | [address] | | | | | [place] | | | | | [address] | | + + + + + Care Team Providers + +------+ + | Care Intelligence Agent Name | Role | Phone | + +------+ + | Farooq Wesley DO | PCP | | + +------+ + Reason for Visit + + + | Reason | Comments | + + + | Appointment | | + + + Encounter Details +--------+ + + + + | Date | Type | Department | Care Team | Description | +--------+ + + + + | 02/04/ | Telephone | [facility] | Maria G Burgess M, CC | Appointment | | 2019 | | [facility] | [facility] SPECIAL[facility] | | | | | [facility] [address] | | | | | | [address] [facility] [place], | | | | | | [place] [address] | | | | | | [phone] | | | +--------+ + + + [...] [place] | | | | | | [address] | | | | | | [phone] | | | | | | | | +--------+---------+ + + + documented as of this encounter Visit Diagnoses Not on filedocumented in this encounter"
--- OUTSIDE RECORDS SUMMARY | ~2019-02-09 | XMS | Encounter Summary ---
Demographics + + + | Address | [address] | | | [place] [address] | + + + | Home Phone | | + + + | Preferred Language | Unknown | + + + | Marital Status | | + + + | Rastafari Affiliation | [id number] | + + + | Race | Unknown | + + + | Ethnic Group | Unknown | + + + Author + + + | Author | [facility] | | | and [place] | + + + | Organization | [facility] | | | and [place] | + + + | Address | Unknown | + + + | Phone | Unavailable | + + + Support + + + + + | Name | Relationship | Address | Phone | + + + + + | Prashanth Vuong | ECON | [address] | | | | | [place] | | | | | [address] | | + + + + + Care Team Providers + +------+ + | Care Talent Acquisition Operations Manager Name | Role | Phone | + +------+ + | Farooq Wesley DO | PCP | | + +------+ + Reason for Visit + + + | Reason | Comments | + + + | Dizziness | | + + + Encounter Details +--------+---------+ + + + | Date | Type | Department | Care Team | Description | +--------+---------+ + + + | 10/13/ | Office | [facility] | Ward, | Diabetes mellitus | | 2019 | Visit | [facility] | [facility] [address] | without complication | | | | [facility] [address] | [address] [place] | (HCC) (Primary Dx) | | | | [address], | [place] [address] | | | | | [place] [address] | [phone] | | | | | [phone] | | | +--------+---------+ + + + [...] + | Blood Pressure | 140/80 | 10/13/2018 4:05 PM | | | | | PDT | | + + + + + | Pulse | 57 | 10/13/2018 4:05 PM | | | | | PDT | | + + + + + | Temperature | 36.3 C (97.4 F) | 10/13/2018 4:05 PM | | | | | PDT | | + + + + + | Respiratory Rate | 16 | 10/13/2018 4:05 PM | | | | | PDT | | + + + + + | Oxygen Saturation | 98% | 10/13/2018 4:05 PM | | | | | PDT | | + + + + + | Inhaled Oxygen | - | - | | | Concentration | | | | + + + + + | Weight | 73 kg (161 lb) | 10/13/2018 4:05 PM | | | | | PDT | | + + + + + | Height | - | - | | + + + + + | Body Mass Index | 30.42 | 09/28/2018 1:19 PM | | | | | PDT | | + + + + + documented in this encounter Progress Notes Ilene Hopper, FLORES - 10/13/2018 4:00 PM PDTFormatting of this note might be differe nt from the original. Chief Complaint Patient presents with Dizziness Assessment 1. Diabetes mellitus without complication (HCC) - ACCU-CHEK [place] PLUS strip; Check blood sugars 1-2 times a day Dispense: 100 each; Refil l: 6 Plan Discussed patient to use product to help with calming her stress in the afternoon. She is to check at [employer] for product called Cal[employer], she is also considering having them massage. Patient to continue losartan - Follow up with PCP and bring BP log to appointment Subjective: Patient ID: Lita Vuong is a 78 y.o. female who is new to me, presents for follow up on her "dizzy spells" Patient reports that she's been having very short episodes of dizz y spells approximately 2-3 times a week for the past month. She says this happens when she stands, she has to hold on to get her bearing. Patient stated that this has happened before and she had a Holter monitor. In reviewing the records he was shown to be normal. Patient did discuss with her PCP and he had recommended tapering to discontinuing her beta ally. At this time she is not on any beta ally, just the ARB. She states that she does not h ave any spinning when she stands up. Orthostatic check was done and this was within normal range. Patient states that these dizziness happens mainly in the evenings. She reports nika t she has a lot of stress and she is not sure if this is causing it. She states that she do es have an eye problem and has an eye doctor appointment on November 03. 2. Patient reports that she is borderline diabetic. She is on no medication however she d oes check her blood sugars frequently so she is requesting refill on her test strips. Objective: BP 140/80 | Pulse 57 | Temp 36.3 C (97.4 F) (Temporal) | Resp 16 | Wt 73 kg (161 lb ) | LMP (LMP Unknown) | SpO2 98% | BMI 30.42 kg/m Physical Exam Constitutional: She appears well-developed. Cardiovascular: Normal heart sounds. Pulmonary/Chest: Effort normal and breath sounds normal. 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 Cervical spondylolysis Degeneration, intervertebral disc, cervical Degeneration, intervertebral disc, cervical Diffuse esophageal spasm DM (diabetes mellitus) ([facility] Dyskinesia of esophagus Dyslipidemia Dysphagia Esophageal reflux disease Essential hypertension, benign GERD (gastroesophageal reflux disease) H/O thrombosis History of cervical cancer History of cervical cancer Hyperlipidemia Hypothyroidism s/p thyroidectomy Osteoarthritis of acromioclavicular joint Right Osteoarthritis of knee Osteoporosis postmenopausal Partial thickness miranda (2nd Deg) Forearm Left Retinal ischemia Rotator cuff tendonitis Sleep apnea Stroke syndrome Allergies Allergen Reactions Cephalexin Hives Hives in throat Iodine Hives IV contrast - "I was in the hospital and didn't wake up for three days" Meloxicam Swelling and Rash Swelling of throat Penicillins Hives and Swelling Throat swelling Rivaroxaban Nausea And Vomiting and Swelling AKA "Xeralto" Sulfa Antibiotics Hives and Swelling Cefazolin Hives and Rash [place] Hives and Rash Electronically signed by FLORES Rankin 10/15/2018 11:26 Note: Part of this report was transcribed using voice recognition software. Every effort wa s made to ensure accuracy. However, inadvertent computerized sports team marketing intern errors may be pre sent documented i n this encounter Plan of Treatment +--------+---------+ + + + | Date | Type | Specialty | Care Team | Description | +--------+---------+ + + + | 02/09/ | Office | Primary Care | Farooq Wesley | | | 2018 | Visit | | DO [place] [address] | | | | | | [place] | | | | | | [address] | | | | | | [phone] | | | | | | | | +--------+---------+ + + + documented as of this encounter Visit Diagnoses + + | Diagnosis | + + | Diabetes mellitus without complication (HCC) - Primary Type II or unspecified type | | diabetes mellitus without mention of complication, not stated as uncontrolled | + + documented in this encounter
--- OUTSIDE RECORDS SUMMARY | ~2019-02-09 | XMS | Encounter Summary ---
Demographics + + + | Address | [address] | | | [place] [address] | + + + | Home Phone | | + + + | Preferred Language | Unknown | + + + | Marital Status | | + + + | Mosque Affiliation | 1028 | + + + | Race | Unknown | + + + | Ethnic Group | Unknown | + + + Author + + + | Author | [facility] | | | and [place] | + + + | Organization | [facility] | | | and [place] | + + + | Address | Unknown | + + + | Phone | Unavailable | + + + Support + + + + + | Name | Relationship | Address | Phone | + + + + + | Prashanth Vuong | ECON | [address] | | | | | [place] | | | | | [address] | | + + + + + Care Team Providers + +------+ + | [employer]pper Name | Role | Phone | + +------+ + | Farooq Wesley DO | PCP | | + +------+ + Encounter Details +--------+---------+ + + + | Date | Type | Department | Care Team | Description | +--------+---------+ + + + | 04/23/ | Surgery | [facility] | Silvano Kaiser MD | EGD | | 2019 | | MED [facility] | [address] [place] | | | | | [address] | [address] [place], [place] | | | | | [place], [place] | [address] | | | | | [address] | | | | | | [phone] | | | +--------+---------+ + + + [...] + + + | Blood Pressure | 136/53 | 04/23/2018 1:18 PM | | | | | PST | | + + + + + | Pulse | 56 | 04/23/2018 1:32 PM | | | | | PST | | + + + + + | Temperature | 36.5 C (97.7 F) | 04/23/2018 10:54 AM | | | | | PST | | + + + + + | Respiratory Rate | 18 | 04/23/2018 10:54 AM | | | | | PST | | + + + + + | Oxygen Saturation | 98% | 04/23/2018 1:32 PM | | | | | PST | | + + + + + | Inhaled Oxygen | - | - | | | Concentration | | | | + + + + + | Weight | 75.7 kg (166 lb 14.2 | 04/23/2018 10:54 AM | | | | oz) | PST | | + + + + + | Height | 154.9 cm (5' 1") | 04/23/2018 10:54 AM | | | | | PST | | + + + + + | Body Mass Index | 31.53 | 04/23/2018 10:54 AM | | | | | PST | | + + + + + documented in this encounter Discharge Instructions Instructions Cecy Rod RN - 04/23/2018 What Is a Hiatal Hernia? Hiatal hernia is whenthearea where the stomach and esophagus meet bulges up through the diaphragm into the chest cavity. In some cases, part of the stomach may bulge above the regulo phragm. Stomach acid may move up into the esophagus and cause symptoms. The symptoms are oft en blamed on gastroesophageal reflux disease (GERD). You may only know about the hernia when it shows up on an X-ray taken for other reasons. What you may feel The hiatus is a normal hole in the diaphragm. The esophagus passes through this hole and le ads to the stomach. In some cases, part of the stomach may bulge above the diaphragm. This b ulge is called a hernia. Stomach acid may move up into the esophagus and cause symptoms. When you eat, the muscle at the hiatus relaxes to allow food to pass into the stomach. It t ightens again to keep food and digestive acids in the stomach. Many people with hiatal hernias have mild symptoms. You may notice the following GERD sympt oms: Heartburn or other chest discomfort A feeling of chest fullness after a meal Frequent burping Acid taste in the mouth Trouble swallowing Treating symptoms If you have been diagnosed with hiatal hernia, these suggestions may help improve symptoms: Lose excess weight. Extra weight puts pressure on the stomach and esophagus. Don t lie down after eating. Sit up for at least an hour after eating. Lying down afte r eating can increase symptoms. Avoid certain foods and drinks. These include fatty foods, chocolate,coffee, mint, and other foods that cause symptoms for you. Don t smoke or drink alcohol. These can worsen symptoms. Look at your medicines. Discuss your medicines with your healthcare provider. Many medic anel can cause symptoms. Consider an antacid medicine. Ask your healthcare provider about yliq-udt-rzeckec andp rescription medicines that may help. Ask about surgery, if needed. Surgery is a treatment choice for some people. Your health care provider can determine if surgery is an option for you. Date Last Reviewed: 12/22/201519992060-4009 [employer]. [address] [place] [address]. All righ ts reserved. This information is not intended as a substitute for professional medical care. Always follow your healthcare professional's instructions. Gastroparesis Gastroparesis means that food and fluids move too slowly out of the stomach into the duoden um. Gastroparesis (also called delayed gastric emptying) happens when the stomach takes longer than normal to empty of food. This is due to a problem with motility (the movement of the mu scles in the digestive tract). For many people, gastroparesis is a lifelong condition. But t reatment can help relieve symptoms and prevent complications. Read on to learn more about ga stroparesis and how it can be managed. How gastroparesis develops With normal motility, signals from nerves tell the stomach muscles when to contract. These muscles move food from the stomach into the duodenum (the first part of the small bowel). Wi th gastroparesis, the nerves or muscles are damaged. This causes motility to slow down or st op completely. As a result, food cannot move from the stomach properly. This delayed emptyin g can cause nausea, vomiting, and other symptoms. Malnutrition can result. Bezoars (hardened lumps of food) can form in the stomach and cause other complications as well. Causes of gastroparesis Gastroparesis can be caused by any of the following: Diabetes Surgery involving any of the digestive organs, such as the stomach and bowels Certain medicines, such as strong pain medicines (narcotics) Certain conditions, such as systemic scleroderma, Parkinson disease, and thyroid disease After a viral illness In many cases, the cause of gastroparesis cannot be found. Signs and symptoms of gastroparesis These can include: Nausea and vomiting Feeling full quickly when eating Belly pain Heartburn Belly bloating Weight loss Loss of appetite High and low blood sugar levels (in people withdiabetes) Diagnosing gastroparesis Your healthcare provider will ask about your symptoms and health history. You ll also be examined. In addition, blood tests and X-rays are often done to check your health and rule o ut other problems. To confirm the problem, you may need other tests as well. These can inclu de: Upper endoscopy.This is doneto see inside the stomach and duodenum. For the test, an endoscope is used. This is a thin, flexible tube with a tiny camera on the end. It s inse rted through the mouth and down into the stomach and duodenum. Upper gastrointestinal (GI) series.This is doneto take X-rays of the upper GI tract from the mouth to the small bowel. For the test, a substance called barium is used. The andrés um coats the upper GI tract so that it will show up clearly on X-rays. Gastric emptying scan.This is done to measure how quickly food leaves the stomach. For the test, a meal containing a harmless radioactive substance (tracer) is eaten. Then scans of the stomach are done. The tracer shows up clearly on the scans and shows the movement of the food through the stomach. Antroduodenal manometry. This test gives pressure measurements of the stomach and small intestine to check how the contractions are working. Newer tests. These are being created and include breath tests and wireless capsule studi es Treating gastroparesis The goal of treatment is to help you manage your condition. Treatment may include one or mo re of the following: Dietary changes.You may need to make changes to your eating habits and daily diet. For instance, your healthcare provider may instruct you to eat small meals throughout the day. Doing this can keep you from feeling full too quickly. You may be placed on a liquid or s oft diet. This means you ll eat liquid foods or foods that are mashed or put through a tracer powder blender. In addition, you may need to avoid foods high in fats and fiber. These can slow dig estion. For more help with your diet, your healthcare provider can refer you to a dietitian. In severe cases, you may need a feeding tube. This sends liquid food or medicine directly t o your small bowel, bypassing the stomach. Treating diabetes. If you are diabetic, it is important to control your blood sugar. Hig h sugar levels worsen gastroparesis. Medicines.These can help manage symptoms, such as nausea and vomiting. They can also i mprove motility. Each medicine has specific risks and side effects. Your doctor can tell you more about any medicine that is prescribed for you. Surgery.You may need to have a tube surgically inserted into the stomach. The tube rem oves excess air and fluid. This can relieve severe symptoms of nausea and vomiting. In rare cases, other surgery may be needed on the stomach or small bowel. This is to create a new pa ssageway for food to be emptied from the stomach. Gastric electrical stimulation. This treatment is done less often and may not be availab le. Your healthcare provider can tell you more about this treatment if it is a choice for yo u. Diabetes and gastroparesis If you have diabetes, gastroparesis can make it harder to manage your blood sugar level. Yo u ll need to take extra steps in your treatment to prevent complications. Work with your [facility] provider to learn what you can do to protect your health. For more information, co ntact the [place] [employer],www.diabetes.org. Long-term concerns With treatment, most people can manage their symptoms and maintain their usual routines. If your symptoms are moderate to severe, you may need to see your healthcare provider more oft en for checkups. Also, other treatments will likely be needed. Date Last Reviewed: 10/04/201519991701-9658 [employer]. [address] [place] [address], [place] [address]. All righ ts reserved. This information is not intended as a substitute for professional medical care. Always follow your healthcare professional's instructions. Diverticulosis Diverticulosismeans that small pouches have formed in the wall ofyourlarge intestine (colon). Most often, this problem causes no symptoms and is common as people age. But the po uches in the colon are at risk of becoming infected. When this happens, the condition is pop led diverticulitis. Although most people with diverticulosis never develop diverticulitis, i t is still not uncommon. Rectal bleeding can also occur and in less common situations, a typ e of colon inflammation called colitis. While most people do nothave symptoms, some people with diverticulosis mayhave: Abdominal cramps and pain Bloating Constipation Change in bowel habits Causes The exact cause of diverticulosis (and diverticulitis) has not been proved, buta few thin gs are associated with the condition: Low-fiber diet Constipation Lack of exercise Your healthcare provider will talk with you about how to manage your condition. Diet change s may be all that are needed to help control diverticulosis and prevent progression to diver ticulitis. If you develop diverticulitis, you will likely needother treatments. Home care You may be told to take fiber supplements daily. Fiber adds bulk to the stool so that it pa sses through the colon more easily. Stool softeners may be recommended. You may also be give n medications for pain relief. Be sure to take all medications as directed. In the past, people were told to avoid corn, nuts, and seeds. This is no longer necessary. Follow these guidelines when caring for yourself at home: Eat unprocessed foods that are high in fiber. Whole grains, fruits, and vegetables are g ood choices. Drink 6 to 8 glasses of water every day unless your healthcare provider has you limit ho w muchfluid you should have. Watch for changes in your bowel movements. Tell your provider if you notice any changes. Begin an exercise program. Ask your provider how to get started. Generally, walking is t he best. Get plenty of rest and sleep. Follow-up care Follow up with your healthcare provider, oras advised. Regular visits may be needed to ch ruth on your health. Sometimes special procedures such as colonoscopy, are needed after an ep isode of diverticulitis or blooding. Be sure to keep all your appointments. If a stool sample was taken, or cultures were done, you should be told if they are positive , or if your treatment needs to be changed. You can call as directed for the results. If X-rays were done,a radiologist will look at them. You will be told if there is a champion e in your treatment. If antibiotics were prescribed, be sure to finish them all. When to seek medical advice Call your healthcare provider right awayif any of these occur: Fever of 100.4F (38C) or higher, or as directed by your healthcare provider Severe cramps in the lower left side of the abdomen or pain that is gettingworse Tenderness in the lower left side of the abdomen or worsening pain throughout the abdome n Diarrhea or constipation that doesn't get better within 24 hours Nausea and vomiting Bleeding from the rectum Call 911 Call 911 if any of the following occur: Trouble breathing Confusion Very drowsy or trouble awakening Fainting or loss of consciousness Rapid heart rate Chest pain Date Last Reviewed: 03/21/201519992269-6834 [employer]. [address] [place] [address]. All righ ts reserved. This information is not intended as a substitute for professional medical care. Always follow your healthcare professional's instructions. documented in this encounter Medications at Time of Discharge + + + +---------+ + + | Medication | Sig | Dispensed | Refills | Start | End Date | | | | | | Date | | + + + +---------+ + + | albuterol | Inhale 2 puffs into | | 0 | | | | (VENTOLIN HFA) 90 | the lungs every 6 | | | | | | mcg/puff inhaler | hours as needed for | | | | | | | Wheezing. | | | | | + + + +---------+ + + | aspirin 81 MG | Take 81 mg by mouth | | 0 | 12/03/19 | | | tablet | nightly. | | | 12 | | + + + +---------+ + + | Cholecalciferol | Take 2,000 Units by | | 0 | | | | (VITAMIN D-3) 2000 | mouth Daily. | | | | | | units CAPS | | | | | | + + + +---------+ + + | EPINEPHrine | Inject 0.3 mg into | | 0 | | | | (EPIPEN 2-HOLLEY) 0.3 | the muscle as | | | | | | mg/0.3 mL injection | needed. | | | | | + + + +---------+ + + | esomeprazole | Take 20 mg by mouth | | 0 | | | | (NEXIUM 24HR) 20 mg | every morning | | | | | | capsule | (before breakfast). | | | | | + + + +---------+ + + | levothyroxine | Take 1 tablet by | 90 | 3 | 03/01/20 | | | (SYNTHROID) 75 MCG | mouth Daily. | tablet | | 18 | | | tablet | | | | | | + + + +---------+ + + | Multiple | Take 1 tablet by | | 0 | | | | Vitamins-Minerals | mouth Daily. | | | | | | (MULTIVITAMIN PO) | | | | | | + + + +---------+ + + | nitroglycerin | Place 1 tablet under | 25 | 11 | 03/10/20 | | | (NITROSTAT) 0.4 mg | the tongue every 5 | tablet | | 18 | | | SL | minutes as needed. | | | | | | tabletIndications: | | | | | | | Chest pain, | | | | | | | unspecified type | | | | | | + + + +---------+ + + | non-formulary | External CBD oil | | 0 | | | | medication | | | | | | + + + +---------+ + + | ACCU-CHEK BROOKLYN | | | 6 | 12/10/19 | | | PLUS strip | | | | 16 | 9 | + + + +---------+ + + | dexlansoprazole | Take 1 capsule by | 10 | 0 | 04/14/19 | | | (DEXILANT) [address] | mouth Daily. | capsule | | 19 | 9 | | capsule | | | | | | + + + +---------+ + + | | TAKE ONE TABLET BY | 90 | 3 | 12/12/19 | | | losartan-hydrochloro | MOUTH EVERY DAY | tablet | | 18 | 9 | | thiazide (HYZAAR) | | | | | | | 100-25 MG per tablet | | | | | | + + + +---------+ + + | metoprolol | Take 1 tablet by | 890 | 3 | 03/01/20 | | | succinate | mouth Daily. | tablet | | 18 | 9 | | (TOPROL-XL) 25 mg 24 | | | | | | | hr tablet | | | | | | + + + +---------+ + + documented as of this encounter [...] [place] | | | | | | [id number] | | | | | | [phone] | | | | | | | | +--------+---------+ + + + documented as of this encounter Procedures + +--------+ + + + | Procedure Name | Priori | Date/Time | Associated Diagnosis | Comments | | | ty | | | | + +--------+ + + + | CAMPYLOBACTER | Routin | 04/23/2018 | | Results for this | | AG,QUAL | e | 12:39 PM | | procedure are in the | | | | PST | | results section. | + +--------+ + + + | CULTURE, STOOL | Routin | 04/23/2018 | | Results for this | | RESULT | e | 12:39 PM | | procedure are in the | | | | PST | | results section. | + +--------+ + + + | RESULT | Routin | 04/23/2018 | | Results for this | | (NON-ORD)[facility] | e | 12:39 PM | | procedure are in the | | | | PST | | results section. | + +--------+ + + + | SHIGATOXIN 1 AND 2 | Routin | 04/23/2018 | | Results for this | | | e | 12:39 PM | | procedure are in the | | | | PST | | results section. | + +--------+ + + + | LACTOFERRIN, FECAL, | Routin | 04/23/2018 | | Results for this | | QUAL | e | 12:39 PM | | procedure are in the | | | | PST | | results section. | + +--------+ + + + | OVA AND PARASITE | Routin | 04/23/2018 | | Results for this | | EXAMINATION | e | 12:39 PM | | procedure are in the | | | | PST | | results section. | + +--------+ + + + | CRYPTOSPORIDIUM AG | Routin | 04/23/2018 | | Results for this | | | e | 12:39 PM | | procedure are in the | | | | PST | | results section. | + +--------+ + + + | GIARDIA AG, EIA, | Routin | 04/23/2018 | | Results for this | | STOOL | e | 12:39 PM | | procedure are in the | | | | PST | | results section. | + +--------+ + + + | CLOSTRIDIUM | Routin | 04/23/2018 | | Results for this | | DIFFICILE A AND B | e | 12:39 PM | | procedure are in the | | EIA | | PST | | results section. | + +--------+ + + + | CULTURE, STOOL | Routin | 04/23/2018 | | Results for this | | | e | 12:39 PM | | procedure are in the | | | | PST | | results section. | + +--------+ + + + | HELICOBACTER PYLORI | Routin | 04/23/2018 | | Results for this | | BIOPSY | e | 12:24 PM | | procedure are in the | | | | PST | | results section. | + +--------+ + + + | COLONOSCOPY | | 04/23/2018 | Esophageal | | | | | 12:17 PM | dysphagia (R13.10), | | | | | PST | Change in bowel | | | | | | habits (R19.4) | | | | | | R54.0 advanced age | | | | | | G47.33 JOSSELINE | | + +--------+ + + + | EGD | | 04/23/2018 | Esophageal | | | | | 12:17 PM | dysphagia (R13.10), | | | | | PST | Change in bowel | | | | | | habits (R19.4) | | | | | | R54.0 advanced age | | | | | | G47.33 JOSSELINE | | + +--------+ + + + | EGD | Routin | 04/23/2018 | | Results for this | | | e | 12:13 PM | | procedure are in the | | | | PST | | results section. | + +--------+ + + + | COLONOSCOPY | Routin | 04/23/2018 | | Results for this | | | e | 12:12 PM | | procedure are in the | | | | PST | | results section. | + +--------+ + + + | PATHOLOGY - EXTERNAL | | 04/23/2018 | | Results for this | | SCAN | | 12:00 AM | | procedure are in the | | | | PST | | results section. | + +--------+ + + + | SURGICAL PATHOLOGY | Routin | 04/23/2018 | | Results for this | | EXAM | e | 12:00 AM | | procedure are in the | | | | PST | | results section. | + +--------+ + + + documented in this encounter Results RESULT REFLEX (04/23/2018 12:39 PM PST) + + + + + + | Component | Value | Ref Range | Performed | Pathologist | | | | | At | Signature | + + + + + + | Result | CommentComment: No ova, | | REFERENCE | | | | cysts, or parasites | | LAB [facility] | | | | seen.One negative | | - [facility] | | | | specimen does not rule | | | | | | out the possibility of | | | | | | aparasitic infection. | | | | + + + + + + + + | Specimen | + + | Stool - Stool | | specimen (specimen) | + + + + + | Narrative | Performed At | + + + | Performed at: [facility] [address] [facility] [address], | REFERENCE LAB | | [place] [id number] Benefits Manager: Jose Jones MD, Phone: | [facility] | | [phone] | | + + + + + + + + | Performing | Address | City/State/Zipcode | Phone Number | | Organization | | | | + + + + + | REFERENCE LAB | [address] | [place] [address] | [phone] | | [facility] | [address] | | | + + + + + Campylobacter Ag,Qual (04/23/2018 12:39 PM PST) + + + + + + | Component | Value | Ref Range | Performed | Pathologist | | | | | At | Signature | + + + + + + | Campylobact | Negative | Negative | [facility] | | | er AG, Qual | | | [facility] | | | | | | [facility] | | | | | | CENTER - | | | | | | LABORATORY | | + + + + + + + + | Specimen | + + | Stool - Stool | | specimen (specimen) | + + + + + + + | Performing | Address | City/State/Zipcode | Phone Number | | Organization | | | | + + + + + | [facility] | [address] | [place] | [phone] | | [facility] | | [address] | | | - LABORATORY | | | | + + + + + Culture, Stool Result (04/23/2018 12:39 PM PST) + + + + + + | Component | Value | Ref Range | Performed | Pathologist | | | | | At | Signature | + + + + + + | Culture | No Salmonella, Shigella, | | [facility] | | | | Aeromonas, Plesiomonas, | | [facility] | | | | E. coli O157 or | | MEDICAL | | | | Yersinia isolated. | | CENTER - | | | | | | LABORATORY | | + + + + + + | Culture | 4+ Usual FloraComment: | | [facility] | | | | Consistent with usual | | [facility] | | | | enteric carla. | | MEDICAL | | | | | | CENTER - | | | | | | LABORATORY | | + + + + + + + + | Specimen | + + | Stool - Stool | | specimen (specimen) | + + + + + + + | Performing | Address | City/State/Zipcode | Phone Number | | Organization | | | | + + + + + | [facility] | [address] | [place] | [phone] | | [facility] | | [address] | | | - LABORATORY | | | | + + + + + Shigatoxin 1 and 2 (04/23/2018 12:39 PM PST) + + + + + + | Component | Value | Ref Range | Performed | Pathologist | | | | | At | Signature | + + + + + + | Shigatoxin | Negative | Negative | [facility] | | | 1 | | | [facility] | | | | | | MEDICAL | | | | | | CENTER - | | | | | | LABORATORY | | + + + + + + | Shigatoxin | Negative | Negative | [facility] | | | 2 | | | [facility] | | | | | | MEDICAL | | | | | | CENTER - | | | | | | LABORATORY | | + + + + + + + + | Specimen | + + | Stool - Stool | | specimen (specimen) | + + + + + + + | Performing | Address | City/State/Zipcode | Phone Number | | Organization | | | | + + + + + | [facility] | [address] | [place] | [phone] | | [facility] | | [address] | | | - LABORATORY | | | | + + + + + Ova and Parasite Examination (04/23/2018 12:39 PM PST) + + + + + + | Component | Value | Ref Range | Performed | Pathologist | | | | | At | Signature | + + + + + + | Ova + | Final reportComment: | | REFERENCE | | | Parasite | These results were | | LAB [facility] | | | Exam | obtained using wet | | - [facility] | | | | preparation(s) and | | | | | | trichromestained smear. | | | | | | This test does not | | | | | | include testing for | | | | | | Cryptosporidiumparvum, | | | | | | Cyclospora, or | | | | | | Microsporidia. | | | | + + + + + + + + | Specimen | + + | Stool - Stool | | specimen (specimen) | + + + + + | Narrative | Performed At | + + + | Performed at: [facility] - [facility] [address], | REFERENCE LAB | | [place], [place] [id number] Benefits Manager: Jose Jones MD, Phone: | [facility] | | [phone] | | + + + + + + + + | Performing | Address | City/State/Zipcode | Phone Number | | Organization | | | | + + + + + | REFERENCE LAB | [address] | [place] [address] | [phone] | | [facility] | [address] | | | + + + + + Lactoferrin, Fecal, Qual (04/23/2018 12:39 PM PST) + + + + + + | Component | Value | Ref Range | Performed | Pathologist | | | | | At | Signature | + + + + + + | Lactoferrin | Negative | Negative | [facility] | | | , Qual | | | [facility] | | | | | | MEDICAL | | | | | | CENTER - | | | | | | LABORATORY | | + + + + + + + + | Specimen | + + | Stool - Stool | | specimen (specimen) | + + + + + + + | Performing | Address | City/State/Zipcode | Phone Number | | Organization | | | | + + + + + | [facility] | [address] | [place] | [phone] | | [facility] | | [address] | | | - LABORATORY | | | | + + + + + Giardia Ag, EIA, Stool (04/23/2018 12:39 PM PST) + + + + + + | Component | Value | Ref Range | Performed | Pathologist | | | | | At | Signature | + + + + + + | Giardia | Negative | Negative | [facility] | | | Antigen, | | | [facility] | | | Stool | | | MEDICAL | | | | | | CENTER - | | | | | | LABORATORY | | + + + + + + + + | Specimen | + + | Stool - Stool | | specimen (specimen) | + + + + + + + | Performing | Address | City/State/Zipcode | Phone Number | | Organization | | | | + + + + + | [facility] | [address] | [place] | [phone] | | [facility] | | [address] | | | - LABORATORY | | | | + + + + + Cryptosporidium Ag (04/23/2018 12:39 PM PST) + + + + + + | Component | Value | Ref Range | Performed | Pathologist | | | | | At | Signature | + + + + + + | Cryptospori | Negative | Negative | [facility] | | | dium | | | [facility] | | | Antigen | | | MEDICAL | | | | | | CENTER - | | | | | | LABORATORY | | + + + + + + + + | Specimen | + + | Stool - Stool | | specimen (specimen) | + + + + + + + | Performing | Address | City/State/Zipcode | Phone Number | | Organization | | | | + + + + + | [facility] | [address] | [place], [place] | [phone] | | [facility] | | [address] | | | - LABORATORY | | | | + + + + + Clostridium difficile A and B EIA (04/23/2018 12:39 PM PST) + + + + + + | Component | Value | Ref Range | Performed | Pathologist | | | | | At | Signature | + + + + + + | Clostridium | NegativeComment: | Negative | [facility] | | | Difficile | Negative for toxigenic | | [facility] | | | [facility] | Clostridium difficile | | MEDICAL | | | | | | CENTER - | | | | | | LABORATORY | | + + + + + + | C. Diff | NegativeComment: No data | Negative | [facility] | | | Toxin A/B | exists on the effects | | [facility] | | | EIA | of colonic washes, | | MEDICAL | | | | barium enemas, | | CENTER - | | | | laxatives, or bowel | | LABORATORY | | | | preparations on the | | | | | | performance of this | | | | | | test. All of these | | | | | | procedures can result in | | | | | | extensive dilution or | | | | | | the presence of | | | | | | additives that may | | | | | | affect test performance. | | | | + + + + + + + + | Specimen | + + | Stool - Stool | | specimen (specimen) | + + + + + + + | Performing | Address | City/State/Zipcode | Phone Number | | Organization | | | | + + + + + | [facility] | [address] | [place] | [phone] | | [facility] | | [address] | | | - LABORATORY | | | | + + + + + Helicobactor pylori Biopsy (04/23/2018 12:24 PM PST) + + + + + + | Component | Value | Ref Range | Performed | Pathologist | | | | | At | Signature | + + + + + + | Helicobacte | Negative | Negative | [facility] | | | r pylori Ag | | | [facility] | | | | | | MEDICAL | | | | | | CENTER - | | | | | | LABORATORY | | + + + + + + + + | Specimen | + + | Tissue - Specimen | | from stomach | | (specimen) | + + + + + + + | Performing | Address | City/State/Zipcode | Phone Number | | Organization | | | | + + + + + | [facility] | [address] | [place] | [phone] | | [facility] | | [address] | | | - LABORATORY | | | | + + + + + EGD (04/23/2018 12:13 PM PST) + + | Specimen | + + | | + + + + -+ | Narrative | Performed At | + + -+ | | [facility] | | GastroenterologyPatient Name: Lita VuongProcedure Date: 04/23/2018 | [facility] | | 12:13 PMMRN: [id number] #: [id number] of : | | | 1940dmit Type: AmbulatoryAge: 77Room: [facility] 01Gender: FemaleNote | | | Status: FinalizedAttending MD: Silvano Kaiser , MDProcedure: | | | Upper GI endoscopyIndications: Esophageal | | | dysphagiaProviders: Silvano Kaiser MD, Jeanette Womack, | | | RNWillow, Medical Technologist Chemistry, Virgilio Grissom | | | MD Satish (Anesthesia Staff)Referring MD: Morris Wesley DO | | | (Referring MD)Medicines: Propofol per | | | AnesthesiaComplications: No immediate complications. Estimated | | | blood loss: Minimal.Procedure: Pre-Anesthesia Assessment: | | | - Prior to the procedure, a History and Physical was performed, and | | | patient medications, allergies and sensitivities were reviewed. | | | The patient's tolerance of previous anesthesia was reviewed. | | | - Prior to the procedure, a History and Physical was performed, | | | and patient medications and allergies were reviewed. The | | | patient is competent. The risks and benefits of the procedure | | | and the sedation options and risks were discussed with the | | | patient. All questions were answered and informed consent was | | | obtained. Patient identification and proposed procedure were | | | verified by the physician, the nurse, the anesthesiologist and | | | the construction services technician in the endoscopy suite. Mental Status | | | Examination: alert and oriented. Airway Examination: normal | | | oropharyngeal airway and neck mobility and Mallampati Class III (part | | | of the uvula and soft palate visualized). Prophylactic | | | Antibiotics: The patient does not require prophylactic | | | antibiotics. Prior Anticoagulants: The patient has taken no | | | previous anticoagulant or antiplatelet agents. ASA Grade | | | Assessment: III - A patient with severe systemic disease. After | | | reviewing the risks and benefits, the patient was deemed in | | | satisfactory condition to undergo the procedure. The anesthesia plan | | | was to use monitored anesthesia care (MAC). Immediately prior | | | to administration of medications, the patient was re-assessed | | | for adequacy to receive sedatives. The heart rate, respiratory | | | rate, oxygen saturations, blood pressure, adequacy of pulmonary | | | ventilation, and response to care were monitored throughout | | | the procedure. The physical status of the patient was | | | re-assessed after the procedure. - After reviewing the risks and | | | benefits, the patient was deemed in satisfactory condition to | | | undergo the procedure. - Using IV propofol under the supervision | | | of an anesthesiologist was determined to be medically | | | necessary for this procedure based on age 65 or older, severe | | | comorbidity (greater than ASA Grade II), morbid obesity and | | | patient's history of sleep apnea. - Immediately prior to | | | administration of medications, the patient was re-assessed for | | | adequacy to receive sedatives. - The heart rate, respiratory | | | rate, oxygen saturations, blood pressure, adequacy of pulmonary | | | ventilation, and response to care were monitored throughout | | | the procedure. - The physical status of the patient was | | | re-assessed after the procedure. After obtaining informed | | | consent, the endoscope was passed under direct vision. | | | Throughout the procedure, the patient's blood pressure, pulse, | | | and oxygen saturations were monitored continuously. The Endoscope was | | | introduced through the mouth, and advanced to the third part of | | | duodenum. The upper GI endoscopy was accomplished without | | | difficulty. The patient tolerated the procedure well.Findings: | | | The upper third of the esophagus, middle third of the esophagus | | | and lower third of the esophagus were normal. A low-grade | | | of narrowing, non-obstructing and mild Schatzki ring was found | | | at the gastroesophageal junction. A TTS dilator was passed through | | | the scope. Dilation with an 18-19-20 mm pyloric balloon dilator | | | was performed. The dilation site was examined and showed | | | complete resolution of luminal narrowing. Estimated blood loss | | | was minimal. The Z-line was irregular and was found 35 cm from | | | the incisors. A 5 cm hiatal hernia was present. Suspect | | | gastroparesis due to absence of peristalsis. Biopsies were taken | | | with a cold forceps for Helicobacter pylori testing using CLOtest. | | | Verification of patient identification for the specimen was | | | done. Estimated blood loss was minimal. The duodenal | | | bulb, first portion of the duodenum, second portion of the | | | duodenum, area of the papilla and third portion of the duodenum were | | | normal. Biopsies for histology were taken with a cold forceps | | | for evaluation of celiac disease. Verification of patient | | | identification for the specimen was done. Estimated blood loss | | | was minimal. The retroflexed view confirmed previous | | | findings,Impression: - Normal upper third of esophagus, middle | | | third of esophagus and lower third of esophagus. - | | | Low-grade of narrowing, non-obstructing and mild Schatzki ring. | | | Dilated. - Z-line irregular, 35 cm from the incisors. - 5 | | | cm hiatal hernia. - Gastroparesis. Biopsied. - Normal | | | duodenal bulb, first portion of the duodenum, second portion of | | | the duodenum, area of the papilla and third portion of the duodenum. | | | Biopsied. - The retroflexed view confirmed previous | | | findings,Recommendation: - Patient has a contact number | | | available for emergencies. The signs and symptoms of potential | | | delayed complications were discussed with the patient. Return | | | to normal activities tomorrow. Written discharge instructions | | | were provided to the patient. - Discharge patient to home | | | (ambulatory). - Resume previous diet today. - Perform a | | | colonoscopy today. - Follow an antireflux regimen indefinitely. | | | - Continue present medications. - Await pathology results. | | | - Repeat upper endoscopy PRN for retreatment. - Return to | | | primary care physician as previously scheduled. - Telephone GI | | | clinic for pathology results in 1 week.Silvano Kaiser MD04/23/2018 | | | 1:12:50 PMThis report has been signed electronically.Number of | | | Addenda: 0Note Initiated On: 04/23/2018 12:13 PMTotal Procedure | | | Duration: 0 hours 7 minutes 57 seconds Scope In: 12:23:48 PMScope Out: | | | 12:31:45 PM [facility], [address] | | | [place] [address] | | | - Discharge patient to home (ambulatory). | | | - Resume previous diet today. | | | - Perform a colonoscopy today. | | | - Follow an antireflux regimen indefinitely. | | | - Continue present medications. | | | - Await pathology results. | | | - Repeat upper endoscopy PRN for retreatment. | | | - Return to primary care physician as previously scheduled. | | | - Telephone GI clinic for pathology results in 1 week. | | |Silvano Kaiser MD | | |04/23/2018 1:12:50 PM | | |This report has been signed electronically. | | |Number of Addenda: 0 | | |Note Initiated On: 04/23/2018 12:13 PM | | |Total Procedure Duration: 0 hours 7 minutes 57 seconds | | |Scope In: 12:23:48 PM | | |Scope Out: 12:31:45 PM | | | [facility], [address], [place] | | | [address] | | + + -+ + +---------+ + + | Performing | Address | City/State/Zipcode | Phone Number | | Organization | | | | + +---------+ + + | [facility] | | | | + +---------+ + + COLONOSCOPY (04/23/2018 12:12 PM PST) + + | Specimen | + + | | + + + + -+ | Narrative | Performed At | + + -+ | | [facility] | | GastroenterologyPatient Name: Lita VuongProcedure Date: 04/23/2018 | [facility] | | 12:12 PMMRN: [id number] #: [id number] of : | | | 1Admit Type: AmbulatoryAge: 77Room: [facility] 01Gender: FemaleNote | | | Status: FinalizedAttending MD: Silvano Kaiser , [facility] SERVICESrocedure: | | | ColonoscopyIndications: Chronic diarrheaProviders: | | | Silvano Kaiser MD, Jeanette Womack RN, Willow Vergara, | | | Medical Technologist Chemistry, Virgilio Covarrubias MD (Anesthesia | | | Staff)Referring MD: Morris Wesley DO (Referring MD)Medicines: | | | Propofol per AnesthesiaComplications: No immediate | | | complications. Estimated blood loss: Minimal.Procedure: | | | Pre-Anesthesia Assessment: - Prior to the procedure, a History | | | and Physical was performed, and patient medications, allergies | | | and sensitivities were reviewed. The patient's tolerance of | | | previous anesthesia was reviewed. - Prior to the procedure, a | | | History and Physical was performed, and patient medications and | | | allergies were reviewed. The patient is competent. The risks | | | and benefits of the procedure and the sedation options and | | | risks were discussed with the patient. All questions were | | | answered and informed consent was obtained. Patient identification and | | | proposed procedure were verified. Prophylactic Antibiotics: | | | The patient does not require prophylactic antibiotics. Prior | | | Anticoagulants: The patient has taken no previous anticoagulant | | | or antiplatelet agents. ASA Grade Assessment: III - A patient | | | with severe systemic disease. After reviewing the risks and | | | benefits, the patient was deemed in satisfactory condition to | | | undergo the procedure. The anesthesia plan was to use monitored | | | anesthesia care (MAC). Immediately prior to administration of | | | medications, the patient was re-assessed for adequacy to receive | | | sedatives. The heart rate, respiratory rate, oxygen saturations, | | | blood pressure, adequacy of pulmonary ventilation, and response | | | to care were monitored throughout the procedure. The physical | | | status of the patient was re-assessed after the procedure. | | | - After reviewing the risks and benefits, the patient was deemed in | | | satisfactory condition to undergo the procedure. - Using | | | IV propofol under the supervision of an anesthesiologist was | | | determined to be medically necessary for this procedure based on age | | | 65 or older, severe comorbidity (greater than ASA Grade II), | | | morbid obesity and patient's history of sleep apnea. - | | | Immediately prior to administration of medications, the patient was | | | re-assessed for adequacy to receive sedatives. - The heart | | | rate, respiratory rate, oxygen saturations, blood pressure, | | | adequacy of pulmonary ventilation, and response to care were monitored | | | throughout the procedure. - The physical status of the | | | patient was re-assessed after the procedure. After I obtained | | | informed consent, the scope was passed under direct vision. | | | Throughout the procedure, the patient's blood pressure, pulse, | | | and oxygen saturations were monitored continuously. The Colonoscope | | | was introduced through the anus and advanced to the cecum, | | | identified by the appendiceal orifice, ileocecal valve and | | | palpation. The colonoscopy was technically difficult and | | | complex due to a redundant colon. Successful completion of the | | | procedure was aided by using manual pressure and straightening | | | and shortening the scope to obtain bowel loop reduction. The | | | patient tolerated the procedure well. The quality of the bowel | | | preparation was good.Findings: The perianal and digital rectal | | | examinations were normal. Pertinent negatives include normal | | | sphincter tone and no palpable rectal lesions. A few | | | small-mouthed diverticula were found in the sigmoid colon. The | | | descending colon and transverse colon were grossly redundant. | | | Normal mucosa was found in the entire colon. Biopsies for histology | | | were taken with a cold forceps from the ascending colon and | | | descending colon for evaluation of microscopic colitis. | | | Verification of patient identification for the specimen was | | | done. Estimated blood loss was minimal. Non-bleeding | | | external and internal hemorrhoids were found during | | | retroflexion and during perianal exam. The hemorrhoids were moderate. | | | The exam was otherwise without abnormality. No additional | | | abnormalities were found on retroflexion.Impression: - | | | Diverticulosis in the sigmoid colon. - Redundant colon. - | | | Normal mucosa in the entire examined colon. Biopsied. - | | | Non-bleeding external and internal hemorrhoids. - The | | | examination was otherwise normal.Recommendation: - Patient has a | | | contact number available for emergencies. The signs and | | | symptoms of potential delayed complications were discussed with the | | | patient. Return to normal activities tomorrow. Written discharge | | | instructions were provided to the patient. - Discharge | | | patient to home (ambulatory). - Resume previous diet today. | | | - Continue present medications. - Return to primary care | | | physician as previously scheduled. - Telephone GI clinic for | | | pathology results in 1 week. - Telephone GI clinic if | | | symptomatic.Silvano Kaiser MD04/23/2018 1:16:59 PMThis report has been | | | signed electronically.Number of Addenda: 0Note Initiated On: 04/23/2018 | | | 12:12 PMScope Withdrawal Time: 0 hours 16 minutes 49 seconds Total | | | Procedure Duration: 0 hours 30 minutes 10 seconds Scope In: 12:33:22 | | | PMScope Out: 1:03:32 PM [facility], [address] | | [place] [address] | | | instructions were provided to the patient. | | | - Discharge patient to home (ambulatory). | | | - Resume previous diet today. | | | - Continue present medications. | | | - Return to primary care physician as previously scheduled. | | | - Telephone GI clinic for pathology results in 1 week. | | | - Telephone GI clinic if symptomatic. | | |Silvano Kaiser MD | | |04/23/2018 1:16:59 PM | | |This report has been signed electronically. | | |Number of Addenda: 0 | | |Note Initiated On: 04/23/2018 12:12 PM | | |Scope Withdrawal Time: 0 hours 16 minutes 49 seconds | | |Total Procedure Duration: 0 hours 30 minutes 10 seconds | | |Scope In: 12:33:22 PM | | |Scope Out: 1:03:32 PM | | | [facility], [address] [facility], [place], [place] | | | [address] | | + + -+ + +---------+ + + | Performing | Address | City/State/Zipcode | Phone Number | | Organization | | | | + +---------+ + + | [facility] | | | | + +---------+ + + PATHOLOGY - EXTERNAL SCAN (04/23/2018 12:00 AM PST) + + + | Narrative | Performed At | + + + | Ordered by an | | | unspecified provider. | | + + + Surgical Pathology Exam (04/23/2018 12:00 AM PST) + + | Specimen | + + | | + + + + + | Narrative | Performed At | + + + | SPECIMEN(S): A DUODENAL BIOPSY SPECIMEN(S): B RIGHT COLON | [facility] | | SPECIMEN(S): C LEFT COLON SPECIMEN SOURCE: A. DUODENAL BIOPSY B. | [facility] | | RIGHT COLON C. LEFT COLON CLINICAL HISTORY: Esophageal | | | dysphagia. R13.10 (dysphagia, unspecified); R19.4 (change in bowel | | | habit); R54 (age-related physical debility); G47.33 (obstructive sleep | | | apnea [adult]). MICROSCOPIC DESCRIPTION: Histologic sections of | | | all submitted blocks are examined by light microscopy. These findings, | | | together with the gross examination, support the pathologic | | | diagnosis. FINAL PATHOLOGIC DIAGNOSIS: A. Duodenum, biopsy: - | | | Duodenal mucosa with normal villous architecture. - Negative for | | | increased intraepithelial lymphocytes. B. Colon, right side, | | | biopsy: - Colonic mucosa; negative for colitis, ischemia, and | | | dysplasia. C. Colon, left side, biopsy: - Colonic mucosa; | | | negative for colitis, ischemia, and dysplasia. KPS:[id number]:[id number] | | | GROSS DESCRIPTION: A. The specimen received in formalin and labeled | | | as "Yevgeniy, Lita" and designated as "duodenal biopsy" per the | | | requisition, consists of seven pink-hyde tissue fragments ranging in | | | size from 0.2 to 0.4 cm in greatest dimension. The entire specimen | | | is submitted in a single cassette, (A1). B. The specimen | | | received in formalin and labeled as "Yevgeniy, Lita" and designated | | | as "right colon biopsy" per the requisition, consists of five pink-hyde | | | tissue fragments which measure from 0.3 to 0.4 cm in greatest | | | dimension. The entire specimen is submitted in a single cassette, | | | (B1). C. The specimen received in formalin and labeled as | | | "Yevgeniy, Lita" and designated as "left colon biopsy" per the | | | requisition, consists of six pink-hyde tissue fragments ranging in size | | | from 0.2 to 0.3 cm in diameter. The entire specimen is submitted | | | in a single cassette, (C1). [email or web address]:[email or web address] PERFORMING LABORATORY: | | | The technical component was performed by [facility], [address] | | [facility] [address] (Transverse Abdominal Muscle Surgeon: Sharda Baxter MD; | | | CLIA# [id number]). Professional interpretation was performed by | | | [facility], [address] [place] [address] | | | [place] [address] (Transverse Abdominal Muscle Surgeon: Grace Hill MD; | | | CLIA# [id number]). Diagnostician: Chip Chang MD | | | Pathologist Electronically Signed 04/26/2018 | | + + + + +---------+ + + | Performing | Address | City/State/Zipcode | Phone Number | | Organization | | | | + +---------+ + + | [facility] | | | | | [facility] | | | | + +---------+ + + documented in this encounter Visit Diagnoses Not on filedocumented in this encounter Administered Medications + +--------+---------+------+------+------+ | Medication Order | MAR | Action | Dose | Rate | Site | | | Action | Date | | | | + +--------+---------+------+------+------+ + +---+ | albuterol 2.5 mg/3 mL nebulizer | | | solution 2.5 mg 2.5 mg, | | | Nebulization, ONCE PRN, Wheezing, | | | Starting Thu04/23/18 at 1310, For | | | 1 dose, Notify anesthesia if | | | patient is wheezing and does not | | | have a history of asthma or COPD | | | or current smoking., | | | Recovery/Phase I | | + +---+ | | | + +---+ | dextrose 50% injection 12.5-25 | | | g 12.5-25 g, Intravenous, EVERY | | | 15 MIN PRN, Low Blood Sugar, Give | | | 12.5g (25 mL) IV if blood | | | glucose 50-69 mg/dL. Give 25g | | | (50 mL) IV if blood glucose < 50, | | | Starting Thu04/23/18 at 1117, | | | Repeat in 15 min if blood glucose | | | remains < 70 mg/dL. Repeat | | | blood glucose in 30 min once | | | blood glucose > 70., Pre-op | | + +---+ | | | + +---+ | fentaNYL (PF) injection 25-50 | | | mcg 25-50 mcg, Intravenous, | | | EVERY 5 MIN PRN, Pain, Starting | | | Thu04/23/18 at 1310, Maximum total | | | dose 250 mcg. PACU IV Narcotic | | | Priority: Only use fentanyl for | | | immediate post-op pain (one dose) | | | or breakthrough pain when any | | | other IV narcotics ordered have | | | been ineffective (if ordered). | | | If both morphine and | | | hydromorphone are ordered, use | | | morphine first, and use | | | hydromorphone if morphine | | | ineffective., Recovery/Phase I | | + +---+ | | | + +---+ | HYDROmorphone (DILAUDID) | | | injection 0.2-0.5 mg 0.2-0.5 mg, | | | Intravenous, EVERY 5 MIN PRN, | | | Pain, Starting Thu04/23/18 at | | | 1310, Maximum total dose 4 mg. | | | PACU IV Narcotic Priority: Only | | | use fentanyl for immediate | | | post-op pain (one dose) or | | | breakthrough pain when any other | | | IV narcotics ordered have been | | | ineffective (if ordered). If | | | both morphine and hydromorphone | | | are ordered, use morphine first, | | | and use hydromorphone if morphine | | | ineffective., Recovery/Phase I | | + +---+ | | | + +---+ + +---------+ +---+-------+---+ | lactated ringers (LR) infusion | New Bag | 04/23/19 | | 100 | | | at 100 mL/hr, Intravenous, | | 19 11:35 | | mL/hr | | | CONTINUOUS, Starting 04/23/18 | | AM PST | | | | | at 1145, Pre-op | | | | | | + +---------+ +---+-------+---+ + +---+ | | | + +---+ | ondansetron (ZOFRAN) injection | | | 4 mg 4 mg, Oral, EVERY 4 HOURS | | | PRN, Nausea, Vomiting, Starting | | | Thu04/23/18 at 1310, | | | Recovery/Phase I | | + +---+ | | | + +---+ | ondansetron (ZOFRAN) injection | | | 4 mg 4 mg, Intravenous, ONCE | | | PRN, Nausea, Starting 04/23/18 | | | at 1310, For 1 dose, | | | Recovery/Phase I | | + +---+ | | | + +---+ documented in this encounter
--- OUTSIDE RECORDS SUMMARY | ~2019-02-09 | XMS | Encounter Summary ---
Demographics + + + | Address | [address] | | | [place] [address] | + + + | Home Phone | | + + + | Preferred Language | Unknown | + + + | Marital Status | | + + + | Episcopal Affiliation | 1028 | + + + | Race | Unknown | + + + | Ethnic Group | Unknown | + + + Author + + + | Author | [facility] | | | and [place] | + + + | Organization | [facility] | | | and [place] | + + + | Address | Unknown | + + + | Phone | Unavailable | + + + Support + + + + + | Name | Relationship | Address | Phone | + + + + + | Prashanth Vuong | ECON | [address] | | | | | [place] | | | | | [address] | | + + + + + Care Team Providers + +------+ + | Care Obstetrical Tech Name | Role | Phone | + +------+ + | Farooq Wesley DO | PCP | | + +------+ + Encounter Details +--------+ + + + + | Date | Type | Department | Care Team | Description | +--------+ + + + + | 04/14/ | Episode | [facility] | Phong[facility]renda | | | 2019 | Changes | GASTROENTEROLOGY | [facility] | | | | | [address] [facility] | | | | | | [address] | | | | | | [address] | | | | | | [phone] | | | +--------+ + + + [...] [place] | | | | | | [address] | | | | | | [phone] | | | | | | | | +--------+---------+ + + + documented as of this encounter Visit Diagnoses Not on filedocumented in this encounter"
--- OUTSIDE RECORDS SUMMARY | ~2019-02-09 | XMS | Encounter Summary ---
Demographics + + + | Address | [address] | | | [place] [address] | + + + | Home Phone | | + + + | Preferred Language | Unknown | + + + | Marital Status | | + + + | Mu-Ism Affiliation | 1028 | + + + | Race | Unknown | + + + | Ethnic Group | Unknown | + + + Author + + + | Author | [facility] | | | and [place] | + + + | Organization | [facility] | | | and [place] | + + + | Address | Unknown | + + + | Phone | Unavailable | + + + Support + + + + + | Name | Relationship | Address | Phone | + + + + + | Prashanth Vuong | ECON | [address] | | | | | [place] | | | | | [address] | | + + + + + Care Team Providers + +------+ + | Care Manager Of Loss Prevention Operations Name | Role | Phone | + [...] Description | +--------+--------+ + + + | 12/11/ | Refill | [facility] | Maria G Burgess M, CC | Medication Refill | | 2017 | | [facility] | [facility] | | | | | [facility] [address] | | | | | | [address] [facility], | | | | | | [place] [address] | | | | | | [phone] | | | +--------+--------+ + + + [...] [place] | | | | | | [address] | | | | | | [phone] | | | | | | | | +--------+---------+ + + + documented as of this encounter Visit Diagnoses Not on filedocumented in this encounter"
--- OUTSIDE RECORDS SUMMARY | ~2019-02-09 | XMS | Encounter Summary ---
Demographics + + + | Address | [address] | | | [place] [address] | + + + | Home Phone | | + + + | Preferred Language | Unknown | + + + | Marital Status | | + + + | Restorationism Affiliation | 1028 | + + + | Race | Unknown | + + + | Ethnic Group | Unknown | + + + Author + + + | Author | [facility] | | | and [place] | + + + | Organization | [facility] | | | and [place] | + + + | Address | Unknown | + + + | Phone | Unavailable | + + + Support + + + + + | Name | Relationship | Address | Phone | + + + + + | Prashanth Vuong | ECON | [address] | | | | | [place] | | | | | [address] | | + + + + + Care Team Providers + +------+ + | Care Pressure Tester Name | Role | Phone | + +------+ + | Farooq Wesley DO | PCP | | + +------+ + Encounter Details +--------+ + + + + | Date | Type | Department | Care Team | Description | +--------+ + + + + | 05/07/ | Hospital | [facility] | Curt Sandoval, | | | 2013 | Encounter | MED CTR MP INTRA OP | MD [address] [place] | | | | | [address] | [address] [place], | | | | | [place], [place] | [place] [address] | | | | | [address] | [phone] | | | | | [phone] | | | +--------+ + + + [...] + + documented as of this encounter Medications at Time of Discharge [...] + + + +---------+ + + | Amlodipine | Take by mouth. | | 0 | | | | Besy-Benazepril HCl | | | | | 3 | | (LOTREL PO) | | | | | | + + + +---------+ + + | atorvaSTATin | Thursday, Thursday | | 0 | 12/03/19 | | | (LIPITOR) 10 mg | and Thursday | | | 12 | 6 | | tablet | | | | | | + + + +---------+ + + | Calcium-Vitamin | Take by mouth. | | 0 | | | | D-Vitamin K | | | | | 6 | | (VIACTIV) 500-100-40 | | | | | | | MG-UNT-MCG CHEW | | | | | | + + + +---------+ + + | | Take 1 tablet by | | 0 | | | | HYDROcodone-acetamin | mouth every 6 hours | | | | 3 | | ophen (NORCO) 10-325 | as needed. | | | | | | mg per tablet | | | | | | + + + +---------+ + + | lansoprazole | 1 to 2 by mouth | | 0 | 11/06/19 | | | (PREVACID SOLUTAB) | daily | | | 10 | 4 | | 15 mg disintegrating | | | | | | | tablet | | | | | | + + + +---------+ + + | levothyroxine | Take 75 mcg by mouth | | 0 | 11/13/19 | | | (SYNTHROID, | Daily. | | | 12 | 8 | | LEVOTHROID) 75 MCG | | | | | | | tablet | | | | | | + + + +---------+ + + | losartan (COZAAR) | Take 100 mg by mouth | | 0 | | | | 100 MG tablet | Daily. | | | | 3 | + + + +---------+ + + | meloxicam (MOBIC) | | | 0 | 10/17/19 | | | 15 mg tablet | | | | 12 | 3 | + + + +---------+ + + | metformin | Take 500 mg by mouth | | 0 | | | | (GLUCOPHAGE) 1000 MG | 2 times daily (with | | | | 7 | | tablet | breakfast & | | | | | | | dinner). | | | | | + + + +---------+ + + | metoprolol | Take 25 mg by mouth | | 0 | | | | tartrate (LOPRESSOR) | 2 times daily. | | | | 4 | | 25 mg tablet | | | | | | + + + +---------+ + + | multivitamin | Daily | | 0 | 12/03/19 | | | (THERAGRAN) per | | | | 12 | 4 | | tablet | | | | | | + + + +---------+ + + | nortriptyline | 1 by mouth every | | 0 | 10/17/19 | | | (PAMELOR) 10 MG | night for 7 days; | | | 12 | 3 | | capsule | then 2 by mouth | | | | | | | every night for 7 | | | | | | | days; then 3 by | | | | | | | mouth every night | | | | | | | for 7 days; then 4 | | | | | | | by mouth every | | | | | | | night. | | | | | + + + +---------+ + + | | Take 2-1,000 mg by | | 0 | 11/06/19 | | | rosiglitazone-metFOR | mouth 2 times daily. | | | 10 | 3 | | MIN (AVANDAMET) | | | | | | | 2-1000 MG per tablet | | | | [...] [place] | | | | | | [address] | | | | | | [phone] | | | | | | | | +--------+---------+ + + + documented as of this encounter Procedures + +--------+ + + + | Procedure Name | Priori | Date/Time | Associated Diagnosis | Comments | | | ty | | | | + +--------+ + + + | POC GLUCOSE | Routin | 05/07/2012 | | Results for this | | | e | 10:12 AM | | procedure are in the | | | | PST | | results section. | + +--------+ + + + documented in this encounter Results POC Glucose (05/07/2012 10:12 AM PST) + +---------+ + + + | Component | Value | Ref Range | Performed | Pathologist | | | | | At | Signature | + +---------+ + + + | Glucose, | 154 (H) | 79 - 150 md/dL | [facility] | | | [facility] | | | | | [facility] | | | | | [facility] - | | | | | | LABORATORY | | + +---------+ + + + + + | Specimen | + + | | + + + + + + + | Performing | Address | City/State/Zipcode | Phone Number | | Organization | | | | + + + + + | [facility] | [address] | [place], [place] | [phone] | | [facility] | | [address] | | | - LABORATORY | | | | + + + + + | [facility] | [address] | [place], [place] | | | [facility] | | [address] | | | - LABORATORY | | | | + + + + + documented in this encounter Visit Diagnoses Not on filedocumented in this encounter"
--- OUTSIDE RECORDS SUMMARY | ~2019-02-09 | XMS | Encounter Summary ---
Demographics + + + | Address | [address] | | | [place] [address] | + + + | Home Phone | | + + + | Preferred Language | Unknown | + + + | Marital Status | | + + + | Mandaeism Affiliation | 1028 | + + + | Race | Unknown | + + + | Ethnic Group | Unknown | + + + Author + + + | Author | [facility] | | | and [place] | + + + | Organization | [facility] | | | and [place] | + + + | Address | Unknown | + + + | Phone | Unavailable | + + + Support + + + + + | Name | Relationship | Address | Phone | + + + + + | Prashanth Vuong | ECON | [address] | | | | | [place] | | | | | [address] | | + + + + + Care Team Providers + +------+ + | Care Windows 7 Deployment Lead Name | Role | Phone | + +------+ + | Farooq Wesley DO | PCP | | + +------+ + Reason for Visit +---------+ + | Reason | Comments | +---------+ + | Results | | +---------+ + Encounter Details +--------+ + + + + | Date | Type | Department | Care Team | Description | +--------+ + + + + | 02/06/ | Telephone | [facility] | Silvano Kaiser MD | Results | | 2017 | | GASTROENTEROLOGY | [address] [place] | | | | | [address] [place] | [address] [place], [place] | | | | | [address] [place], [place] | [address] | | | | | [address] | | | | | | [phone] | | | +--------+ + + + [...] [place] | | | | | | [address] | | | | | | [phone] | | | | | | | | +--------+---------+ + + + documented as of this encounter Visit Diagnoses Not on filedocumented in this encounter"
--- OUTSIDE RECORDS SUMMARY | ~2019-02-09 | XMS | Encounter Summary ---
Demographics + + + | Address | [address] | | | [place] [address] | + + + | Home Phone | | + + + | Preferred Language | Unknown | + + + | Marital Status | Single | + + + | Mandaeism Affiliation | Unknown | + + + | Race | Unknown | + + + | Ethnic Group | Other Race | + + + Author + + + | Author | [facility] | + + + | Organization | [facility] | + + + | Address | Unknown | + + + | Phone | Unavailable | + + + Support + + +---------+ + | Name | Relationship | Address | Phone | + + +---------+ + | None None | ECON | Unknown | Unavailable | + + +---------+ + Care Team Providers + +------+ + | Care Medical Educator Name | Role | Phone | + +------+ + | Farooq Wesley DO | PCP | | + +------+ + Encounter Details +--------+ + + + + | Date | Type | Department | Care Team | Description | +--------+ + + + + | 01/06/ | Document-Sc | UNKNOWN DEPARTMENT | Other, Faculty | | | 2011 | anned | [address] | [phone] | | | | | [address] | | | | | | [place], [place] | | | | | | [address] | | | +--------+ + + + [...]
--- OUTSIDE RECORDS SUMMARY | ~2019-02-09 | XMS | Encounter Summary ---
Demographics + + + | Address | [address] | | | [place] [address] | + + + | Home Phone | | + + + | Preferred Language | Unknown | + + + | Marital Status | | + + + | Bahai Affiliation | 1028 | + + + [...] + | Prashanth Vuong | ECON | [address] | | | | | [place] | | | | | [address] | | + + + + + Care Team Providers + +------+ + | Care Buck Swamper Name | Role | Phone | + +------+ + PCP | Unavailable | + +------+ + Encounter Details +--------+ + + + + | Date | Type | Department | Care Team | Description | +--------+ + + + + | 11/26/ | Hospital | [facility] | Silvano Kaiser MD | | | 1993 | Encounter | MED CTR GENERIC OP | [address] [place] | | | | | CONV DEPT [address] | [address] [place], [place] | | | | | [address] [place], | [address] | | | | | [place] [address] | | | | | | [phone] | | | +--------+ + + + [...] [place] | | | | | | [address] | | | | | | [phone] | | | | | | | | +--------+---------+ + + + documented as of this encounter Visit Diagnoses Not on filedocumented in this encounter"
--- OUTSIDE RECORDS SUMMARY | ~2019-02-09 | XMS | Encounter Summary ---
Demographics + + + | Address | [address] | | | [place] [address] | + + + | Home Phone | | + + + | Preferred Language | Unknown | + + + | Marital Status | | + + + | Muslim Affiliation | 1028 | + + + [...] + | Prashanth Vuong | ECON | [address] | | | | | [place] | | | | | [address] | | + + + + + Care Team Providers + +------+ + | Care Associate Trainer Name | Role | Phone | + +------+ + PCP | Unavailable | + +------+ + Encounter Details +--------+ + + + + | Date | Type | Department | Care Team | Description | +--------+ + + + + | 08/19/ | Hospital | [facility] | Edwin Galloway | | | 2006 | Encounter | MED CTR SLEEP | MD [address] | | | | | [place] [address] [place] | | | | | [place], [place] | [place] [address] | | | | | [address] | [phone] | | | | | [phone] | | | +--------+ + + + [...] [place] | | | | | | [address] | | | | | | [phone] | | | | | | | | +--------+---------+ + + + documented as of this encounter Visit Diagnoses Not on filedocumented in this encounter"
--- OUTSIDE RECORDS SUMMARY | ~2019-02-09 | XMS | Encounter Summary ---
Demographics + + + | Address | [address] | | | [place] [address] | + + + | Home Phone | | + + + | Preferred Language | Unknown | + + + | Marital Status | | + + + | Temple Affiliation | 1028 | + + + | Race | Unknown | + + + | Ethnic Group | Unknown | + + + Author + + + | Author | [facility] | | | and [place] | + + + | Organization | [facility] | | | and [place] | + + + | Address | Unknown | + + + | Phone | Unavailable | + + + Support + + + + + | Name | Relationship | Address | Phone | + + + + + | Prashanth Vuong | ECON | [address] | | | | | [place] | | | | | [address] | | + + + + + Care Team Providers + +------+ + | Care Laundry Marker Supervisor Name | Role | Phone | + [...] Description | +--------+--------+ + + + | 10/21/ | Refill | [facility] | Kashif Jennifer, | Medication Refill | | 2017 | | [facility] | DIRECTOR BUSINESS | | | | | MEDICAL CLIN[facility] [address] | | | | | | [address] [facility] [place], | | | | | | [place] [address] | | | | | | [phone] | | | +--------+--------+ + + + [...] | | | | | | [place] | | | | | | [address] | | | | | | [phone] | | | | | | | | +--------+---------+ + + + documented as of this encounter Visit Diagnoses Not on filedocumented in this encounter"
--- OUTSIDE RECORDS SUMMARY | ~2019-02-09 | XMS | Encounter Summary ---
Demographics + + + | Address | [address] | | | [place] [address] | + + + | Home Phone | | + + + | Preferred Language | Unknown | + + + | Marital Status | | + + + | Advent Affiliation | 1028 | + + + | Race | Unknown | + + + | Ethnic Group | Unknown | + + + Author + + + | Author | [facility] | | | and [place] | + + + | Organization | [facility] | | | and [place] | + + + | Address | Unknown | + + + | Phone | Unavailable | + + + Support + + + + + | Name | Relationship | Address | Phone | + + + + + | Prashanth Vuong | ECON | [address] | | | | | [place] | | | | | [address] | | + + + + + Care Team Providers + +------+ + | Care Physician Ophthalmologist Name | Role | Phone | + +------+ + | Farooq Wesley DO | PCP | | + +------+ + Encounter Details +--------+ + + + + | Date | Type | Department | Care Team | Description | +--------+ + + + + | 10/25/ | Hospital | [facility] | Silvano Kaiser MD | | | 2013 - | Encounter | MED CTR MP INTRA OP | [address] [place] | | | | | [address] | [address] [place], [place] | | | 10/26/ | | [place] | [address] | | | 2012 | | [address] | | | | | | [phone] | | | +--------+ + + + [...] [place] | | | | | | [address] | | | | | | [phone] | | | | | | | | +--------+---------+ + + + documented as of this encounter Visit Diagnoses Not on filedocumented in this encounter"
--- OUTSIDE RECORDS SUMMARY | ~2019-02-09 | XMS | Encounter Summary ---
Demographics + + + | Address | [address] | | | [place] [address] | + + + | Home Phone | | + + + | Preferred Language | Unknown | + + + | Marital Status | | + + + | Jain Affiliation | 1028 | + + + [...] + | Prashanth Vuong | ECON | [address] | | | | | [place] | | | | | [address] | | + + + + + Care Team Providers + +------+ + | Care Charge Gang Weigher Name | Role | Phone | + +------+ + | Farooq Wesley DO | PCP | | + +------+ + Reason for Visit + + + | Reason | Comments | + + + | Diabetes Mellitus | | | Management | | + + + Encounter Details +--------+ + + + + | Date | Type | Department | Care Team | Description | +--------+ + + + + | 11/24/ | Telephone | [facility] | Farooq Wesley | Diabetes Mellitus | | 2019 | | [facility] | E, DO [address] | Management | | | | MEDICAL CLINIC [address] | [place], [place] | | | | [address] [place], | [address] | | | | | [place] [address] | [phone] | | | | | [phone] | | | +--------+ + + + [...] 02/09/ | Office | Primary Care | [place] [facility] | | | 2018 | Visit | | E, DO [address] | | | | | | [place] | | | | | | [address] | | | | | | [phone] | | | | | | | | +--------+---------+ + + + + +------+--------+ + + | Name | Type | Priori | Associated Diagnoses | Order Schedule | | | | ty | | | + +------+--------+ + + | Hemoglobin A1C | Lab | Routin | Controlled type 2 | 1 Occurrences | | | | e | diabetes mellitus | starting 11/24/2018 | | | | | without | until 11/25/2019 | | | | | complication, | | | | | | without long-term | | | | | | current use of | | | | | | insulin (HCC) | | + +------+--------+ + + | Microalbumin/Creatin | Lab | Routin | Controlled type 2 | 1 Occurrences | | ine Ratio, Urine | | e | diabetes mellitus | starting 11/24/2018 | | | | | without | until 11/25/2019 | | | | | complication, | | | | | | without long-term | | | | | | current use of | | | | | | insulin (HCC) | | + +------+--------+ + + documented as of this encounter Visit Diagnoses + + | Diagnosis | + + | Controlled type 2 diabetes mellitus without complication, without long-term current | | use of insulin (HCC) - Primary | + + documented in this encounter"
--- OUTSIDE RECORDS SUMMARY | ~2019-02-09 | XMS | Encounter Summary ---
Demographics + + + | Address | [address] | | | [place] [address] | + + + | Home Phone [...] + | Prashanth Vuong | ECON | [address] | | | | | [place] | | | | | [address] | | + + + + + Care Team Providers + +------+ + | Care Saw Tailer Name | Role | Phone | + [...] | Results | | 2018 | | [facility] | [facility] [address] | | | | | MEDICAL CLINIC [address] | [address] [place] | | | | | [address] [place], | [place] [address] | | | | | [place] [address] | [phone] | | | | | [phone] | | | +--------+ + + + [...] | 2018 | Visit | | [place], [place] [address] | | | | | | [place] | | | | | | [address] | | | | | | [phone] | | | | | | | | +--------+---------+ + + + documented as of this encounter Visit Diagnoses Not on filedocumented in this encounter"
--- OUTSIDE RECORDS SUMMARY | ~2019-02-09 | XMS | Encounter Summary ---
Demographics + + + | Address | [address] | | | [place] [address] | + + + | Home Phone | | + + + | Preferred Language | Unknown | + + + | Marital Status | | + + + | Orthodoxy Affiliation | 1028 | + + + [...] + | Prashanth Vuong | ECON | [address] | | | | | [place] | | | | | [address] | | + + + + + Care Team Providers + +------+ + | Care Generator Worker Name | Role | Phone | + +------+ + | Farooq Wesley DO | PCP | | + +------+ + Reason for Visit + + + | Reason | Comments | + + + | Establish Care | Re-establish care | + + + | Hip Pain | LEFT hip pain x 3 months, no known injury, painful more at night | | | and use of stairs | + + + | Medication Refill | Need for refills of BP medication | + + + | Mass | Lump on back of head that she picks at from time to time. Notes | | | it being present for 1 year. | + + + Encounter Details +--------+---------+ + + + | Date | Type | Department | Care Team | Description | +--------+---------+ + + + | 12/08/ | Office | [facility] | Farooq Wesley | Greater trochanteric | | 2018 | Visit | [facility] | E, DO [address] | bursitis of left | | | | [facility] | [place], [place] | hip (Primary Dx); | | | | [address] [place], | [address] | Essential | | | | [place] [address] | [phone] | hypertension; | | | | [phone] | | Controlled type 2 | | | | | | diabetes mellitus | | | | | | without | | | | | | complication, | | | | | | without long-term | | | | | | current use of | | | | | | insulin (HCC); Skin | | | | | | neoplasm | +--------+---------+ + + + Social History [...] + + + | Blood Pressure | 138/74 | 12/08/2017 9:17 AM | | | | | PDT | | + + + + + | Pulse | 49 | 12/08/2017 9:17 AM | | | | | PDT | | + + + + + | Temperature | 36.7 C (98.1 F) | 12/08/2017 9:17 AM | | | | | PDT | | + + + + + | Respiratory Rate | 16 | 12/08/2017 9:17 AM | | | | | PDT | | + + + + + | Oxygen Saturation | 98% | 12/08/2017 9:17 AM | | | | | PDT | | + + + + + | Inhaled Oxygen | - | - | | | Concentration | | | | + + + + + | Weight | 75.6 kg (166 lb 9.6 | 12/08/2017 9:17 AM | | | | oz) | PDT | | + + + + + | Height | 153.7 cm (5' 0.5") | 12/08/2017 9:17 AM | | | | | PDT | | + + + + + | Body Mass Index | 32 | 12/08/2017 9:17 AM | | | | | PDT | | + + + + + documented in this encounter Progress Notes Maria G Burgess CC CMA - 12/08/2017 9:30 AM JESSICALita Vuong presents today with ief Complaint of: Re-establish care. LEFT hip pain x 3 months, no known injury, painful more at night and use of stairs. Need for refills of BP medication. Lump on back of head that she picks at from time to time. Notes it being present for 1 year. Current medications verified with her at time of visit. Pt currently shows no s/s of distress, shortness of breath. Vital signs: BP 138/74 | Pulse (!) 49 | Temp 36.7 C (98.1 F) (Oral) | Resp 16 | Ht 1.537 m (5' 0.5") | Wt 75.6 kg (166 lb 9.6 oz) | SpO2 98% | ? No | BMI 32.0 0 kg/m Labs Obtained per protocol: None. Verbal Report given to: Farooq Wesley DO. RICHARD Hunter CMA Farooq Naranjo DO - 12/08/2017 9:30 AM PDT Patient ID: Lita Vuong is a 77 y.o. year old female Chief Complaint: Chief Complaint Patient presents with Establish Care Re-establish care Hip Pain LEFT hip pain x 3 months, no known injury, painful more at night and use of stairs Medication Refill Need for refills of BP medication Mass Lump on back of head that she picks at from time to time. Notes it being present for 1 y ear. Assessment Greater trochanteric bursitis of left hip (Primary) Essential hypertension - Comprehensive Metabolic Panel; Future; Expected date: 01/21/2018 Controlled type 2 diabetes mellitus without complication, without long-term current use of insulin (HCC) - Hemoglobin A1C; Future; Expected date: 01/21/2018 Skin neoplasm Plan -Reduce Losartan-HCTZ to half tablet a day for couple months, track blood pressure, and pop l clinic with readings -Start taking Vitamin D3 1,000-2,000 units daily -Go to [facility] in January while fasting for blood work 40 minute visit with > 50% time spent in counseling. Subjective: HARMAN London presents to the clinic today to re-establish care from [facility], and discuss left hip teresa n, lump on back of head, and medication refill. Started this summer, her left hip pain. Was hurting when she was going up the stairs in her camper. Her sciatica pain in her buttocks. She feels it mainly while sleeping, she is unabl e to lay on left side. The paid doesn't travel. She is needing her A1C done. While she was standing one day after having one alcoholic drink and next thing she knew she was on the floor. She has a bump on the back of her head, it has been there a while. The bump doesn't bother her, besides it is there. #1 PARQ Sterile technique No complications and tolerated well. 0.50cc (40mg/1ml) TAC [facility] [address]-0 LOT [id number] EXP 04/11 and 1.0cc 1% lidocaine [facility] 59089-826-32 LOT [id number] EXP 09/11 injected into Left great troch #2 PARQ Lesion treated with LN, freeze thaw times 4 cycles Procedure no complications and tolerated well. Recommended Influenza, she declined today she will get it in [place]. Current Outpatient Prescriptions Medication Sig Dispense Refill ACCU-CHEK [place] PLUS strip 6 albuterol (VENTOLIN HFA) 90 mcg/puff inhaler Inhale 2 puffs into the lungs every 6 hour s as needed for Wheezing. aspirin 81 MG tablet Take 81 mg by mouth nightly. cimetidine (TAGAMET HB) 200 MG tablet Take 200 mg by mouth as needed. EPINEPHrine (EPIPEN 2-HOLLEY) 0.3 mg/0.3 mL injection Inject 0.3 mg into the muscle as nee ded. levothyroxine (SYNTHROID, LEVOTHROID) 75 MCG tablet Take 75 mcg by mouth Daily. Liniments (SALONPAS PAIN RELIEF PATCH EX) Apply topically Daily. losartan-hydrochlorothiazide (HYZAAR) 100-25 MG per tablet TAKE ONE TABLET BY MOUTH RYLIE RY DAY 14 tablet 0 metoprolol succinate (TOPROL-XL) 25 mg 24 hr tablet Take 25 mg by mouth Daily. 1 Multiple Vitamins-Minerals (MULTIVITAMIN PO) Take 1 tablet by mouth Daily. nitroglycerin (NITROSTAT) 0.[address] 0.4 mg under the tongue every 5 minute s as needed. No current facility-administered medications for this visit. 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 GERD (gastroesophageal reflux disease) Dysphagia Diabetes mellitus type 2, controlled HTN (hypertension) Hypothyroidism Scar Cervical spondylolysis DM (diabetes mellitus) Dyslipidemia Esophageal reflux disease Essential hypertension, benign H/O thrombosis Degeneration, intervertebral disc, cervical Degeneration, intervertebral disc, cervical Osteoarthritis of acromioclavicular joint Osteoporosis Retinal ischemia Stroke syndrome Family History Problem Relation Age of Onset Other (see comment) Mother osteoporosis Cancer Paternal Grandmother "stomach" Diabetes Paternal Grandmother Breast cancer Maternal Aunt Diabetes Paternal Grandfather Past Surgical History: Procedure Laterality Date BREAST REDUCTION SURGERY 1993 bilateral CATARACT REMOVAL 08/2016 COLONOSCOPY 10/25/[address] Kaiser HYSTERECTOMY THYROID SURGERY hemithyroidectomy - right TOTAL KNEE ARTHROPLASTY May, right, partial UPPER GASTROINTESTINAL ENDOSCOPY 10/25/12 next due 10/2013 UPPER GASTROINTESTINAL ENDOSCOPY N/A 03/05/2016 Procedure: EGD; Surgeon: Silvano Kaiser MD; Location: [facility] UPPER GASTROINTESTINAL ENDOSCOPY N/A 02/03/2017 Procedure: EGD; Surgeon: Silvano Kaiser MD; Location: [facility] Social History Social History Marital status: Spouse name: N/A Number of children: N/A Years of education: N/A Occupational History Not on file. Social History Main Topics Smoking status: Never Smoker Smokeless tobacco: Never Used Alcohol use 0.6 - 1.2 oz/week 1 - 2 Glasses of wine per week Drug use: No Sexual activity: Yes Partners: Male control/ protection: None Other Topics Concern Not on file Social History Narrative No narrative on file Allergies Allergen Reactions Cephalexin Hives Hives in throat Iodine Hives IV contrast - "I was in the hospital and didn't wake up for three days" Meloxicam Swelling and Rash Swelling of throat Penicillins Hives and Swelling Throat swelling Rivaroxaban Nausea And Vomiting and Swelling AKA "Xeralto" Sulfa Antibiotics Hives and Swelling Cefazolin Hives and Rash [place] Hives and Rash Review of Systems Constitutional: Negative for fatigue and fever. Respiratory: Negative for cough, chest tightness, shortness of breath and wheezing. Cardiovascular: Negative for chest pain and palpitations. Gastrointestinal: Negative for abdominal pain, nausea and vomiting. Musculoskeletal: Negative for gait problem and myalgias. Left hip pain Neurological: Negative for dizziness, syncope and headaches. Psychiatric/Behavioral: The patient is not nervous/anxious. Objective: Vitals: BP 138/74 | Pulse (!) 49 | Temp 36.7 C (98.1 F) (Oral) | Resp 16 | Ht 1.537 m (5' 0 .5") | Wt 75.6 kg (166 lb 9.6 oz) | SpO2 98% | ? No | BMI 32.00 kg/m Physical Exam Constitutional: She appears well-developed and well-nourished. HENT: Head: Atraumatic. Eyes: Pupils are equal, round, and reactive to light. EOM are normal. Cardiovascular: Normal rate, regular rhythm and normal heart sounds. Pulmonary/Chest: Effort normal and breath sounds normal. Abdominal: Bowel sounds are normal. Musculoskeletal: Pain with palpation, left greater throc Lymphadenopathy: She has no cervical adenopathy. Neurological: She is alert. Skin: Skin is warm and dry. Lesion (0.5 cm round lesion) noted. Psychiatric: She has a normal mood and affect. Entered by Brian Coronado, acting as scribe for Dr. Maryjane DO. The documentation recorded by the scribe accurately reflects the service I personally perfo [facility] and the decisions made by me. Dr. Farooq Wesley DO. 12/08/2017 10:19 documented in this encounter Plan of Treatment +--------+---------+ + + + | Date | Type | Specialty | Care Team | Description | +--------+---------+ + + + | 02/09/ | Office | Primary Care | Farooq Wesley | | | 2018 | Visit | | E, [address] | | | | | | [place], [place] | | | | | | [address] | | | | | | [phone] | | | | | | | | +--------+---------+ + + + documented as of this encounter Results Hemoglobin A1C (08/17/2018 8:53 AM PDT) + +---------+ + + + | Component | Value | Ref Range | Performed | Pathologist | | | | | At | Signature | + +---------+ + + + | Hemoglobin | 6.8 (H) | 4.5 - 6.2 % | [facility] | | | A1c | | | [facility] | | [facility] | | | | | [facility] | | | | | | [facility] | | | | | | [facility] | | + +---------+ + + + | Estimated | 148 | mg/dL | [facility] | | | Average | | | [facility] | | | Glucose | | | [facility] | | | | | | [facility] | | | | | | [facility] | | | | | | [facility] | | + +---------+ + + + + + | Specimen | + + | Blood | + + + + + + + | Performing | Address | City/State/Zipcode | Phone Number | | Organization | | | | + + + + + | [facility] | [address] | [place] [address] | [phone] | | [facility] | | | | | [facility] | | | | + + + + + Comprehensive Metabolic Panel (08/17/2018 8:53 AM PDT) + + + + + + | Component | Value | Ref Range | Performed | Pathologist | | | | | At | Signature | + + + + + + | Na | 137 | 132 - 143 | [facility] | | | | | mmol/L | [facility] | | | | | [facility] | | | | | [facility] | | | | | | [facility] | | + + + + + + | K | 4.1 | 3.3 - 4.9 | [facility] | | | | | mmol/L | [facility] | | | | | | [facility] | | | | | | [facility] | | | | | | [facility] | | + + + + + + | Cl | 101 | 95 - 108 mmol/L | [facility] | | | | | | [facility] | | | | | [facility] | | | | | [facility] | | | | | | [facility] | | + + + + + + | CO2 | 28 | 23 - 34 mmol/L | [facility] | | | | | | [facility] | | | | | | [facility] | | | | | | [facility] | | | | | | [facility] | | + + + + + + | Anion Gap | 8 | 7 - 16 mmol/L | [facility] | | | | | | [facility] | | | | | [facility] | | | | | [facility] | | | | | | [facility] | | + + + + + + | Glucose | 137 (H) | 70 - 110 mg/dL | [facility] | | | | | | [facility] | | | | | [facility] | | | | | [facility] | | | | | | [facility] | | + + + + + + | BUN | 21 | 5 - 26 mg/dL | [facility] | | | | | | [facility] | | | | | [facility] | | | | | | [facility] | | | | | | [facility] | | + + + + + + | Creatinine | 1.13 | 0.70 - 1.40 | [facility] | | | | | mg/dL | [facility] | | | | | | [facility] | | | | | | [facility] | | | | | | [facility] | | + + + + + + | eGFR if not | 47 (L)Comment: | >=60 | [facility] | | | | GLOMERULAR FILTRATION | mL/min/1.73m2 | [facility] | | | MALDIVIAN | RATE,ESTIMATED | | [facility] | | | | mL/min/1.79q1Nhfz than | | REGIONAL | | | | 60 Chronic kidney | | MEDICAL | | | | disease,if found over a | | CENTER LAB | | | | 3-month period.Less than | | | | | | 15 Kidney failureFor | | | | | | | | | | | | Americans,multiply the | | | | | | calculated GFR by 1.21. | | | | | | | | | | + + + + + + | Calcium | 9.0 | 8.3 - 10.0 | [facility] | | | | | mg/dL | [facility] | | | | [facility] | | | | | | [facility] | | | | | | [facility] | | | | | | [facility] | | + + + + + + | Albumin | 3.5 | 3.0 - 4.5 g/dL | [facility] | | | | | | [facility] | [facility] | | | | | | [facility] | | | | | | [facility] | | | | | | [facility] | | + + + + + + | Bilirubin | 0.5 | 0.0 - 1.2 mg/dL | [facility] | | | Total | | | [facility] | | | | | | [facility] | | | | | | [facility] | | | | | | [facility] | | + + + + + + | Total | 6.8 | 6.6 - 8.5 g/dL | [facility] | | | Protein | | | [facility] | | | | [facility] | | | | | | [facility] | | | | | | [facility] | | | | | | [facility] | | + + + + + + | AST | 25 | 0 - 38 U/L | [facility] | | | | | | [facility] | | | | | | [facility] | | | | | | [facility] | | | | | | [facility] | | + + + + + + | ALT | 29 | 14 - 59 U/L | [facility] | | | | | | [facility] | | | | | | [facility] | | | | | | [facility] | | | | | | [facility] | | + + + + + + | Alkaline | 83 | 46 - 116 U/L | [facility] | | | Phosphatase | | | [facility] | | [facility] | [facility] | | | | | | [facility] | | | | | | [facility] | | | | | | [facility] | | + + + + + + | Globulin | 3.3 | 2.4 - 4.5 g/dL | [facility] | | | | | | [facility] | | | | | | [facility] | | | | | | [facility] | | | | | | [facility] | | + + + + + + | Albumin/Beverly | 1.1 | 0.8 - 2.0 | [facility] | | | bulin Ratio | | | [facility] | [facility] | | | | | | [facility] | | | | | | [facility] | | | | | | [facility] | | + + + + + + | BUN/Creatin | 18.6 | 7.0 - 24.0 | [facility] | | | ine Ratio | | | [facility] | | | | | | [facility] | | | | | | [facility] | | | | | | [facility] | | + + + + + + | Fasting? | YesComment: Fasting 11 | | [facility] | | | | hrs | | [facility] | | | | | | [facility] | | | | | | [facility] | | | | | | [facility] | | + + + + + + + + | Specimen | + + | Blood | + + + + + + + | Performing | Address | City/State/Zipcode | Phone Number | | Organization | | | | + + + + + | [facility] | [address] | [place] [address] | [phone] | | [facility] | | | | | [facility] | | | | + + + + + documented in this encounter Visit Diagnoses + + | Diagnosis | + + | Greater trochanteric bursitis of left hip - Primary Enthesopathy of hip region | + + | Essential hypertension Unspecified essential hypertension | + + | Controlled type 2 diabetes mellitus without complication, without long-term current | | use of insulin (HCC) | + + | Skin neoplasm Neoplasm of unspecified nature of bone, soft tissue, and skin | + + documented in this encounter
--- OUTSIDE RECORDS SUMMARY | ~2019-02-09 | XMS | Encounter Summary ---
Demographics + + + | Address | [address] | | | [place] [address] | + + + | Home Phone | | + + + | Preferred Language | Unknown | + + + | Marital Status | | + + + | Mormonism Affiliation | 1028 | + + + | Race | Unknown | + + + | Ethnic Group | Unknown | + + + Author + + + | Author | [facility] | | | and [place] | + + + | Organization | [facility] | | | and [place] | + + + | Address | Unknown | + + + | Phone | Unavailable | + + + Support + + + + + | Name | Relationship | Address | Phone | + + + + + | Prashanth Vuong | ECON | [address] | | | | | [place] | | | | | [address] | | + + + + + Care Team Providers + +------+ + | Care Trim Master Operator Name | Role | Phone | + +------+ + | Farooq Wesley DO | PCP | | + +------+ + Encounter Details +--------+ + + + + | Date | Type | Department | Care Team | Description | +--------+ + + + + | 01/12/ | Hospital | [facility] | Farooq Wesley | Constipation, | | 2018 | Encounter | [facility] | E, DO [address] | unspecified | | | | [address] | [place], [place] | constipation type; | | | | [place], [place] | [address] | Diarrhea, | | | | [address] | [phone] | unspecified type | | | | [phone] | | | +--------+ + + + [...] + + + +---------+ + + | cimetidine | Take 200 mg by mouth | | 0 | | | | (TAGAMET HB) 200 MG | as needed. | | | | 8 | | tablet | | | | [...] + + + +---------+ + + | Liniments | Apply topically | | 0 | | | | (SALONPAS PAIN | Daily. | | | | 8 | | RELIEF PATCH EX) | | | | | | + [...] mg by mouth | | 1 | 11/10/19 | | | succinate | Daily. | | | 17 | 8 | | (TOPROL-XL) 25 mg 24 | | | | | | | hr tablet | | | | | | + + + +---------+ + + | nitroglycerin | Place 0.4 mg under | | 0 | | | | (NITROSTAT) 0.4 mg | the tongue every 5 | | | | 8 | | SL tablet | minutes as needed. | | | | | + [...] [address] | | | | | | [place] | | | | | | [address] | | | | | | [phone] | | | | | | | | +--------+---------+ + + + documented as of this encounter Procedures + +--------+ + + + | Procedure Name | Priori | Date/Time | Associated Diagnosis | Comments | | | ty | | | | + +--------+ + + + | XR ABDOMEN AP | Routin | 01/12/2018 | Constipation, | Results for this | | | e | 5:28 PM | unspecified | procedure are in the | | | | PDT | constipation type | results section. | | | | | Diarrhea, | | | | | | unspecified type | | + +--------+ + + + documented in this encounter Results XR Abdomen AP (01/12/2018 5:28 PM PDT) + + | Specimen | + + | | + + + + + | Impressions | Performed At | + + + | IMPRESSION: No evidence of an acute process. Dictated by: | [facility] | | Jaron Kwon Electronically Signed by: Jaron Kwon on | | | 01/13/2018 10:39 AM | | + + + + + + | Narrative | Performed At | + + + | EXAMINATION: XR ABDOMEN 1 VW HISTORY: Consitpation, | [facility] | | intermitten diarrhea COMPARISON STUDY: None FINDINGS: Air | | | and stool are noted throughout the colon to the level of the rectum. | | | Bowel gas pattern is nonobstructive. No free air. No abnormal | | | mass-effect or calcification. Osseous structures demonstrates no | | | acute process. Phleboliths are noted projecting over the bladder. | | + + + + + | Procedure Note | + + | Ranjith, Rad Results In - 01/13/2018 10:43 AM PDT EXAMINATION: | | XR ABDOMEN 1 VW | | | | HISTORY: | | Consitpation, intermitten diarrhea | | | | COMPARISON STUDY: | | None | | | | FINDINGS: | | Air and stool are noted throughout the colon to the level of the rectum. | | Bowel gas pattern is nonobstructive. | | No free air. | | No abnormal mass-effect or calcification. | | Osseous structures demonstrates no acute process. | | Phleboliths are noted projecting over the bladder. | | | | IMPRESSION: | | IMPRESSION: | | No evidence of an acute process. | | | | Dictated by: Jaron Kwon | | | | | + + + +---------+ + + | Performing | Address | City/State/Zipcode | Phone Number | | Organization | | | | + +---------+ + + | [facility] | | | | + +---------+ + + documented in this encounter Visit Diagnoses + + | Diagnosis | + + | Constipation, unspecified constipation type | + + | Diarrhea, unspecified type | + + documented in this encounter"
--- OUTSIDE RECORDS SUMMARY | ~2019-02-09 | XMS | Encounter Summary ---
Demographics + + + | Address | [address] | | | [place] [address] | + + + | Home Phone | | + + + | Preferred Language | Unknown | + + + | Marital Status | | + + + | Mandaen Affiliation | 1028 | + + + | Race | Unknown | + + + | Ethnic Group | Unknown | + + + Author + + + | Author | [facility] | | | and [place] | + + + | Organization | [facility] | | | and [place] | + + + | Address | Unknown | + + + | Phone | Unavailable | + + + Support + + + + + | Name | Relationship | Address | Phone | + + + + + | Prashanth Vuong | ECON | [address] | | | | | [place] | | | | | [address] | | + + + + + Care Team Providers + +------+ + | Care Human Projectile Name | Role | Phone | + [...] 2013 | | [facility]Y | [address], [place] | | | | | [address] [place] | [address] [place], [place] | | | | | [address] [place], [place] | [address] | | | | | [address] | | | | | | [phone] | | | +--------+ + + + [...] [place] | | | | | | [address] | | | | | | [phone] | | | | | | | | +--------+---------+ + + + documented as of this encounter Visit Diagnoses Not on filedocumented in this encounter"
--- OUTSIDE RECORDS SUMMARY | ~2019-02-09 | XMS | Encounter Summary ---
Demographics + + + | Address | [address] | | | [place] [address] | + + + | Home Phone | | + + + | Preferred Language | Unknown | + + + | Marital Status | | + + + | Anglican Affiliation | 1028 | + + + [...] + | Prashanth Vuong | ECON | [address] | | | | | [place] | | | | | [address] | | + + + + + Care Team Providers + +------+ + | Care Bus Repair Supervisor Name | Role | Phone | + +------+ + | Farooq Wesley DO | PCP | | + +------+ + Encounter Details +--------+ + + + + | Date | Type | Department | Care Team | Description | +--------+ + + + + | 04/23/ | Hospital | [facility] | Silvano Kaiser MD | 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 Many medic nael can cause symptoms. Consider an antacid medicine. Ask your healthcare provider about kisv-goe-eqdfvsn andp rescription medicines that may help. Ask about surgery, if needed. Surgery is a treatment choice for some people. Your health care provider can determine if surgery is an option for you. Date Last Reviewed: 12/22/201519997619-1258 [employer]. [address] [place] [address]. All righ ts reserved. This information is [...] that are mashed or put through a honey blender. In addition, you may need to [...] treatment to prevent complications. Work with your [facility] provider to learn what you can do to protect your health. For more information, co ntact the [place] [employer],www.diabetes.org. Long-term concerns With treatment, most people can manage their symptoms and maintain their usual routines. If your symptoms are moderate to severe, you may need to see your healthcare provider more oft en for checkups. Also, other treatments will likely be needed. Date Last Reviewed: 10/04/201519993654-6997 [employer]. [address] [place], [place] [address] [address]. All [facility] ts reserved. This information is not intended [...] heart rate Chest pain Date Last Reviewed: 03/21/201519991546-9471 [employer]. [address] [place] [address]. All [facility] ts reserved. This information is not intended [...] Description | +--------+---------+ + + + | 11/20/ | Office | Primary Care | Farooq Wesley | | | 2018 | Visit | | E, DO [address] | | | | | | [place] | | | | | | [address] | | | | | | [phone] | | | | | | | [...] + + | Performed at: 01 - [facility] [address], | REFERENCE LAB | | [facility] [id number] Bakery Manager: Jose Jones MD, Phone: | [facility] | | [phone] | | + + + + + + + + | Performing | Address | City/State/Zipcode | Phone Number | | Organization | | | | + + + + + | REFERENCE LAB | [address] | [place] [address] | [phone] | | [facility] | [address] | | | + + + + + Campylobacter Joanne Decker (04/23/2018 12:39 PM PST) + + + + + + | Component | Value | Ref Range | Performed | Pathologist | | | | | At | Signature | + + + + + + | Campylobact | Negative | Negative | [facility] | | | er AG Qual | | | [facility] | [...] ST. | [address] | [place], [place] | [phone] | | [facility] | | [address] | | | - LABORATORY | | [...] [address] | [place] | [phone] | | [facility] | | [address] | | | - LABORATORY | | [...] ST. | [address] | [place] | [phone] | | [facility] | | [address] | | | - LABORATORY | | [...] + + | Performed at: 01 - [facility] [address], | REFERENCE LAB | | [place] [id number] Bakery Manager: Jose Jones MD, Phone: | [facility] | | [phone] | | + + + + + + + + | Performing | Address | City/State/Zipcode | Phone Number | | Organization | | | | + + + + + | REFERENCE LAB | [address] | [place] [address] | [phone] | | [facility] | [address] | [place] | [phone] | | [facility] | | [address] | | | - LABORATORY | | [...] ST. | [address] | [place] | [phone] | | [facility] | | [address] | | | - LABORATORY | | [...] + + + + + | YUNI KENDALL. | [address] | [place] | [phone] | | [facility] | | [address] | | | - LABORATORY | | [...] + | [facility] | [address] | [place] | [phone] | | [facility] | | [address] | | | - LABORATORY | | [...] + | [facility] | [address] | [place] | [phone] | | [facility] | | [address] | | | - LABORATORY | | | | + + + + + EGD (04/23/2018 12:13 PM PST) + + | Specimen | + + | | + + + + -+ | Narrative | Performed At | + + -+ | | [facility] | | GastroenterologyPatient Name: Lita VuongProcedure Date: 04/23/2018 | [facility] | | 12:13 PMMRN: [id number] #: [id number] of : | | | 1940dmit Type: AmbulatoryAge: 77Room: [facility] 01Gender: FemaleNote | | | Status: FinalizedAttending MD: Silvano Kaiser , [facility]cedure: | | | Upper GI endoscopyIndications: Esophageal | | | dysphagiaProviders: Silvano Kaiser MD, Jeanette Womack, | | | RN, Willow Vergara, [employer] Leader, Virgilio Grissom | | | MD Satish [...] the anesthesiologist and | | | the vascular technician in the endoscopy suite. Mental Status [...] PMScope Out: | | | 12:31:45 PM [facility], [address] | | | [place] [address] | | | - Discharge patient to [...] |Scope Out: 12:31:45 PM | | | [facility], [address] [facility], [place], [place] | | | [address] | | + + -+ + +---------+ [...] 04/23/2018 | [facility] | | 12:12 PMMRN: [id number] #: [id number] of : | | | 1Admit Type: AmbulatoryAge: 77Room: [facility] 01Gender: FemaleNote | | | Status: FinalizedAttending MD: Silvano Kaiser , [facility]cedure: | | | ColonoscopyIndications: Chronic diarrheaProviders: | | | Silvano Kaiser MD, Jeanette Womack RN, Willow Vergara, | | | [employer] Processing [employer] Leader, Virgilio Covarrubias MD (Anesthesia | | | [...] | | | PMScope Out: 1:03:32 PM [facility], [address] | | | [place] [address] | | | instructions were provided to [...] |Scope Out: 1:03:32 PM | | | [facility], [address] [facility], [place] | | | [address] | | + + -+ + +---------+ [...] formalin and labeled | | | as "Lita Vuong" and designated as "duodenal biopsy" per the | | | requisition, consists of seven pink-hyde tissue fragments ranging in | | | size from 0.2 to 0.4 cm in greatest dimension. The entire specimen | | | is submitted in a single cassette, (A1). B. The specimen | | | received in formalin and labeled as "Lita Vuong" and designated | | | as "right colon biopsy" per the requisition, consists of five pink-hyde | | | tissue fragments which measure from 0.3 to 0.4 cm in greatest | | | dimension. The entire specimen is submitted in a single cassette, | | | (B1). C. The specimen received in formalin and labeled as | | | "Lita Vuong" and designated as "left colon biopsy" per the | | | requisition, consists of six pink-hyde tissue fragments ranging in size | | | from 0.2 to 0.3 cm in diameter. The entire specimen is submitted | | | in a single cassette, (C1). [email or web address]:guicho PERFORMING LABORATORY: | | | The technical component was performed by [facility], [address] | | | [facility] [address] (Pt Sitter: Sharda Baxter MD; | | | CLIA# [id number]). Professional interpretation was performed by | | | [facility], [facility], [address] [place] [address] | | | [place] [address] (Pt Sitter: Grace Hill MD; | | | CLIA# [id number]). Diagnostician: Chip Chang MD | | | [...]
--- OUTSIDE RECORDS SUMMARY | ~2019-02-09 | XMS | Encounter Summary ---
Demographics + + + | Address | [address] | | | [place] [address] | + + + | Home Phone | | + + + | Preferred Language | Unknown | + + + | Marital Status | | + + + | Zoroastrian Affiliation | 1028 | + + + [...] + | Prashanth Vuong | ECON | [address] | | | | | [place] | | | | | [address] | | + + + + + Care Team Providers + +------+ + | Care Operator Assistant I Cementing Name | Role | Phone | + +------+ + | Farooq Wesley DO | PCP | | + +------+ + Reason for Visit + + + | Reason | Comments | + + + | Dysphagia | | + + + | Other | bowel trouble | + + + Evaluate & Treat (Routine) +--------+--------+ + + + + | Status | Reason | Specialty | Diagnoses / | Referred By | Referred To | | | | | Procedures | Contact | Contact | +--------+--------+ + + + + | Closed | | Gastroenterol | Diagnoses | Maryjane, | Job, | | | | ogy | Dysphagia, | Farooq Rose, | Silvano Rose MD | | | | | unspecified | DO [address] | [address], | | | | | Esophageal | [address] | [place] [address] | | | | | obstruction | [place], [place] | [place], | | | | | Procedures | [address] | [place] [address] | | | | | OFFICE | Phone: | Phone: | | | | | VISIT/EGD | [phone] | [phone] | | | | | | Fax: | Fax: | | | | | | [phone] | [phone] | +--------+--------+ + + + + Encounter Details +--------+---------+ + + + | Date | Type | Department | Care Team | Description | +--------+---------+ + + + | 04/14/ | Office | [facility] | Silvano Kaiser MD | Esophageal dysphagia | | 2019 | Visit | GASTROENTEROLOGY | [address], [place] | (Primary Dx); | | | | [address] [place] | [address] [place], [place] | Change in bowel | | | | [address] [place], [place] | [address] | habits | | | | [address] | | | | | | [phone] | | | +--------+---------+ + + + [...] + + + | Blood Pressure | 164/66 | 04/14/2018 2:13 PM | | | | | PST | | + + + + + | Pulse | 55 | 04/14/2018 2:13 PM | | | | | PST | | + + + + + | Temperature | 36.6 C (97.9 F) | 04/14/2018 2:13 PM | | | | | PST | | + + + + + | Respiratory Rate | 16 | 04/14/2018 2:13 PM | | | | | PST | | + + + + + | Oxygen Saturation | 99% | 04/14/2018 2:13 PM | | | | | PST | | + + + + + | Inhaled Oxygen | - | - | | | Concentration | | | | + + + + + | Weight | 76.1 kg (167 lb 12.3 | 04/14/2018 2:13 PM | | | | oz) | PST | | + + + + + | Height | - | - | | + + + + + | Body Mass Index | 32.23 | 03/10/2018 2:56 PM | | | | | PST | | + + + + + documented in this encounter Plan of Treatment +--------+---------+ + + + | Date | Type | Specialty | Care Team | Description | +--------+---------+ + + + | 02/09/ | Office | Primary Care | Maryjane Farooq | | | 2018 | Visit | | DO [place] [address] | | | | | | [place] | | | | | | [address] | | | | | | [phone] | | | | | | | | +--------+---------+ + + + documented as of this encounter Visit Diagnoses + + | Diagnosis | + + | Esophageal dysphagia - Primary Dysphagia, pharyngoesophageal phase | + + | Change in bowel habits Other symptoms involving digestive system | + + documented in this encounter"
--- OUTSIDE RECORDS SUMMARY | ~2019-02-09 | XMS | Encounter Summary ---
Demographics + + + | Address | [address] | | | [place] [address] | + + + | Home Phone | | + + + | Preferred Language | Unknown | + + + | Marital Status | Single | + + + | Anglican Affiliation | Unknown | + + + | Race | Unknown | + + + | Ethnic Group | Other Race | + + + Author + + + | Author | [facility] | + + + | Organization | [facility] | + + + | Address | Unknown | + + + | Phone | Unavailable | + + + Support + + +---------+ + | Name | Relationship | Address | Phone | + + +---------+ + | None None | ECON | Unknown | Unavailable | + + +---------+ + Care Team Providers + +------+ + | Care Novelty Twister Operator Name | Role | Phone | + +------+ + | Farooq Wesley DO | PCP | | + +------+ + Reason for Visit + + + | Reason | Comments | + + + | New patient | | | consultation | | + + + | Hoarseness | | + + + Consultation (Routine) +--------+--------+ + + + + | Status | Reason | Specialty | Diagnoses / | Referred By | Referred To | | | | | Procedures | Contact | Contact | +--------+--------+ + + + + | Closed | | Otolaryngolog | | Maryjane, | Ent | | | | y | | DO Farooq | Laryngology | | | | | | [address] | [address] | | | | | | [place], | [address] | | | | | | [place] | [place], [place] | | | | | | [address] | [address] | | | | | | Phone: | Phone: | | | | | | [phone] | [phone] | | | | | | Fax: | Fax: | | | | | | [phone] | [phone] | +--------+--------+ + + + + Encounter Details +--------+---------+ + + + | Date | Type | Department | Care Team | Description | +--------+---------+ + + + | 01/06/ | Office | Otolaryngology | Rachid Steele | 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 | MD Lita [address] | paralysis of vocal | | | | at [facility] [address] | cord (Primary Dx); | | | | [place], | [place], [place] | Dysphonia; | | | | [place] [address] | [address] | Pharyngeal dysphagia | | | | [phone] | [phone] | | | | | | | [...] + documented in this encounter Progress Notes Rachid Steele MD - 02/15/2012 12:28 AM PST PATIENT: Lita Vuong MR#: [id number] : 1940 REQUESTING PROVIDER: Farooq Wesley DO [facility] [address] [place] [address] PRIMARY CARE PROVIDER: Farooq Wesley DO CLINIC: [facility] CHIEF COMPLAINT: Chief Complaint Patient presents with New patient consultation Hoarseness HPI: Lita Vuong is a 71 y.o. female who presents to the [facility] with difficulty phonating. She has noted sudden difficulty with hoarsen ess for the past 2 months. She believes that the problem began about 7 weeks after an uncom plicated thyroid surgery. 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 About 7 weeks later, she noted hoarseness and Dr. Ervin pro identified a left vocal fold paralysis. Imaging of the head, chest and neck failed to demonstrate any lesions or masses. A modified barium swallow was within normal limits. Starr Wesley has requested a consultation from the [facility] for evaluation of Ms. Vuong's hoarseness and left vocal fold paralysis. She now does not note periods of normal voicing. Specific difficulties with voicing includ e: poor vocal quality, fluctuating voice quality, weak voice, effortful voicing, inability t o yell, difficulty being heard in noise, trouble voicing on the telephone, breaks in pitch, lowered pitch and elevated pitch. She does not note anterior neck discomfort or pain with v oicing. She does note globus sensation. She does not note pain with swallowing. She does note specific difficulties with swallowing. She does note that she will cough with liquid s periodically. She has not altered her diet. She denies coughing and sputtering with swall owing, trouble breathing while swallowing, choking or recent aspiration-associated pneumonia . She denies dyspnea or noisy breathing. She denies problems with cough or hemoptysis. Sh e has not noted any otalgia. She has not had any fevers, chills or sweats. She does experience classic heartburn symptoms often. She does use antacids. She does not have a known hiatal hernia. She has had a trial of reflux therapy. 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 Her vocal demand s are primarily those of conversational speech, heavy telephone use and recreational singing . She reports that she is talkative. She notes that she occasionally abuses her voice with yelling or shouting. VOCAL HYGIENE: Ms. Vuong drinks about 32 oz of noncaffeinated fluid daily, 20 oz of caf feinated beverages. She is not currently smoking. She notes that she is frequently clearin g her throat. PREVIOUS SURGERY: She has not had previous surgery on her esophagus. She has not had prev ious surgery on her larynx. She has had recent intubation. 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 Burroughs, follicular adenoma, right SOCIAL Hx: History Social History Marital Status: Single Spouse Name: N/A Number of Children: N/A Years of Education: N/A Occupational History Not on file. Social History Main Topics Smoking status: Never Smoker Smokeless tobacco: Not on file Alcohol Use: Yes wine sometimes Drug Use: Not on file Sexually Active: Yes Other Topics Concern Not on file Social History Narrative Ms. Vuong is . 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 She lives [place], [place] She does have children. She does not have supportive friends or family members in the [place] area. FAMILY HX: Family History Problem Relation Cancer Maternal Aunt Breast Diabetes Paternal Grandfather Diabetes Paternal Grandmother Diabetes Maternal Grandmother Cancer Paternal Grandmother Stomach Stroke Maternal Aunt Hypertension Mother Stroke Mother Thyroid Son Tremors Neg Hx Movement Disorders Neg Hx ALLERGIES: Allergies Allergen Reactions Iodine "Almost when injected for a test" Penicillin G "too much as a child" MEDICATIONS: Current Outpatient Prescriptions Medication Sig ASPIRIN 81 MG TAB 1 po daily levothyroxine (SYNTHROID) 75 mcg Oral tablet Take 75 mcg by mouth once daily. LIPITOR 10 MG TAB take 1 tab every thursday, thursday and thursday lisinopril-hydrochlorothiazide 20-25 mg Oral tablet Take 1 Tab by mouth once daily. metFORMIN SR 1,000 mg Oral tablet,ER satinder.retention 24 hr Take 1,000 mg by mouth two ti mes daily. MULTIPLE VITAMIN TAB 1 po daily PREVACID 30 MG CAP 1 po daily ROS: She does note a history of intentional weight loss of 22 lbs over the past 5 months, obstructive sleep apnea with CPAP use, asthma and peptic ulcer disease. She does not note h ead tremors. She does not note extremity tremors. She does not note problems with anxiety . She does not note problems with depression. System review was otherwise negative for: recent objective fevers, productive cough, recent hemoptysis, physiologically significant mu rmur, recent angina, recent myocardial infarction, persistent arrhythmia, stroke, liver dise ase, primary bleeding disorder, bowel problems, or renal insufficiency/failure. EXAMINATION: BP 116/77 | Pulse 80 | Ht 1.562 m (5' 1.5") | Wt 84.823 kg (187 lb) | BMI 34. 76 kg/(m^2) Gen: She is a 71 y.o. female. She is awake, alert and comfortable with the examination. Her weight is elevated. She is normocephalic. Ears: The pinnae are normal. External auditory canals show minimal cerumen bilaterally. The tympanic membranes are clear with normal anatomic landmarks and an aerated middle ear sp omega. Nose: The nasal dorsum is straight and the nares are widely patent. The mucosa is pink and there are no lesions or masses noted. There is no significant nasal obstruction noted. Face: There are no worrisome lesions noted of the face or head. Salivary Glands: The salivary glands are soft and show no lesions or masses within the par otid or submandibular glands bilaterally. There is no obvious obstruction of Stensen's or W rajeev's ducts bilaterally. Oropharynx: Normal lips and oral competence are noted. The dentition is good. The mucosa is dry and pale, but shows no lesions or masses. The tonsils are absent and the fossae scout w no lesions. Bimanual palpation of the gigivolabial sulcus, lingual sulcus, tonsillar pill ars, palate and base of tongue did not demonstrate any concerning lesions or masses. Neck: The neck has a well-healed Cuco incision. It is a bit plethoric. There is no lymp hadenopathy noted in the anterior, posterior, digastric or submental triangles. The thyroid is palpable, but not enlarged or tender. I cannot appreciate any nodules. The larynx is a natomic in positioning. The bilateral thyrohyoid muscle(s) are tight with voicing. The thy rohyoid muscle(s) are not tender. The bilateral digastric muscle(s) are not tight with voic ing. The digastric muscle(s) are not tender. The base of tongue is tight with voicing. It is not tender to palpation. Chest: Chest rise is symmetric and there is no audible wheezing, stridor or wet vocal qual ity. Her chest is clear to auscultation bilaterally. Heart: She has a regular rate and rhythm. Her pulses are full. Neurologic: The patient is awake, alert and cooperative with the examination. Responses t o questions were judged to be appropriate throughout the interview. The extraoccular moveme nts are intact and symmetric throughout. The pupils are equal. Community Center Coordinator strength does mary jo ear full bilaterally. Facial motion is normal on the right. Facial motion is normal on t he left. Hearing is grossly intact. Gag reflex is normal on the right. Gag reflex is nor mal on the left. Palatal elevation is normal on the right. Palatal elevation is normal on the left. Tongue bulk is normal bilaterally and protrusion is midline. Tongue protrusion i s normal on the right. Tongue protrusion is normal on the left. There are no tremors of t he head, palate or tongue noted. There are no extremity tremors noted. VOICE EVALUATION: Perceptual voice evaluation demonstrates dysphonia which is moderate. The pitch is acceptable for a female and shows limited range. Vocal intensity is acceptable and shows limited upper range. There is 2+ roughness, 1-2+ breathiness, 1+ asthenia and 2+ tightness appreciated. There is no tremor noted with sustained vowel phonation. I am un able to detect voice breaks. Glottal weaver is not detected. There is diplophonia noted. Art iculation is normal. Resonance is normal. LARYNGOSCOPY: Laryngoscopy was performed using a distal-chip Olympus flexible videolaryngo scope following the topical nasal application of oxymetazoline and pontocaine. This was per formed because the patient's gag reflex precluded adequate transoral indirect laryngoscopy. This demonstrates a clear vallecula and crisp epiglottis. The aryepiglottic folds are inta ct and symmetric bilaterally. The hypopharynx is clear to the limits of my examination toda y and shows no pooling. The interarytenoid space demonstrates no lesions or pachydermia. T he false vocal folds are symmetric and without lesions or masses. They show incorporation d uring sustained vowel phonation. The vocal folds show normal motion on the right. The lef t notes no motion. The left fold is in a paramedian-lateral position at rest. There is no paradoxical motion. The medial edges are crisp and show no lesions or masses. The mucosal covering appears mildly edematous, but otherwise healthy. There is no obvious vascular ecta karen or erythema. While closure is difficult to assess completely without stroboscopy, it ap pears to be incomplete with wedge-like anterior glottic gap. The vocal processes show no gr anulomas or contact ulcers. The subglottis and proximal trachea is clear and unobstructed t o the limits of the examination today. No pseudosulcus can be appreciated on indirect exami nation. VIDEOSTROBOSCOPY: Laryngovideostroboscopy was performed today by Elva Parekh CCC-PERMANENT MOLD SUPERVISOR. R eview of laryngovideostroboscopy demonstrates laryngeal anatomy and motion as noted above. There is moderate laryngeal hyperfunction which is most notable in the lateral dimension. Th ere is not noted to be increased thick laryngeal mucous. Cricothyroid function appears to be intact bilaterally. The mucosal wave is occasionally periodic. Propagation of the mucosal waveform is anterior to posterior. There is often chasing asymmetry noted. On the right, the wave amplitude is globally decreased. On the left, the wave amplitude is globally decre ased. Closure is not complete with a wedge-like closure. There is not noted to be a vertic al phase defect by videostroboscopy. On the right, the mucosal edge appears free of lesions . On the left, the mucosal edge appears free of lesions. On the right, the submucosal spac e appears free of lesions. On the left, the submucosal space appears free of lesions. ASSESSMENT: Ms. Vuong appears to have dysphonia associated with left vocal fold paralys is that does not appear to be related to her right hemithyroidectomy. It is possible that i t is related to endotracheal tube intubation, but she did not notice it for many weeks follo wing surgery. Most of the intubation associated vocal fold paralysis seems to resolve in th at time. 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 I do not think that she needs furt her workup at this time. We discussed the nature vocal cord paralysis at length today. While most paralysis turns out to be idiopathic, it is import to work-up possible treatable causes. The most concerni ng of these are occult malignancies. This is usually done with a CT scan through the course of the recurrent laryngeal nerve. If there are focal neurologic signs or history of intrac ranial pathology, a MRI of the brain and brainstem may be considered. Should the paralysis prove to be idiopathic, we discussed the prognosis as well as the yuli e-frame for expected recovery. Most vocal cords that return to function do so within 1 year with a few returning between 1 and 2 years. I usually like to wait about this long before intervening in a permanent manner with medialization thyroplasty. This also gives the cord time to atrophy if it fails to become reinnervated. During this time of watchful waiting, w e can consider a temporary solution to the dysphonia such as collagen injection. I typicall y use Cymetra, as it is well tolerated and has a good duration of utility (3-6 mo). PLAN: After a thorough discussion of our findings today, I have offered her injection chester ngoplasty with Cymetra to help improve her glottic closure. We talked about the procedure a nd its temporary nature. We also talked about the expected outcomes after injection and the voice changes that will take place over the next several weeks. Overall, the goal is to im prove glottic competence and allow for easier voicing. She understands this and is interest ed in proceeding with injection laryngoplasty. PROCEDURE: Following review of the risks and benefits of the procedure and [facility] consent, Ms. Vuong was brought to the treatment room and her nose was topicalized wit h Afrin and pontocaine. After allowing adequate time for vasoconstriction and analgesia, he r neck was carefully palpated and the lower half of the left thyroid cartilage was identifie d. The skin and perichondrium of the thyroid ala were anesthetized with 1% lidocaine and 1: 100,000 epinephrine. After cleaning the neck with alcohol, fiberoptic laryngoscopy was performed with video mon itoring. 2 cc Cymetra was prepared with 1.7 cc of sterile saline to the infant lead teacher's inst ructions. This was loaded into a 1 cc syringe with a 1 1/2 inch 23 ga needle. Percutaneous injection was then performed with fiberoptic guidance into the left vocal fold. This was ve ry difficult and though she tried to suppress her gag reflex, I was not able to get a satisf actory needle position for enough time to effectively medialize the left vocal fold. Approx imately 0.2 cc was used, but fusiform filling was not observed. The procedure was concluded without a satisfactory injection. There was no bleeding at the conclusion of the procedure . Ms. Vuong's gag subsided quickly after terminating the procedure. PLAN: We were unable to achieve a successful procedure in the office today. We discussed the options. These include observation for a few months and proceeding to medialization thy roplasty, injection laryngoplasty with micronized human Alloderm (Cymetra) in the operating room under general anesthesia and no procedure at all. We discussed the direct microlaryngos copy with injection laryngoplasty using Cymetra at length and discussed the post-operative f ollow-up care. We discussed the expected duration of effect as about 3 months. We discusse d the alternatives to surgery, including observation and voice therapy. I do not believe th at either of these approaches will help her voice. We discussed the risks and benefits of s urgery including bleeding, infection, failure to improve voice, worsening of voice, need for further surgery, dental injury, tongue numbness and the risks of anesthesia. We also discu ssed medialization thyroplasty at length. We discussed the need for sedative local anesthes ia during the procedure for voice tuning. We discussed the relevant anatomy and the implant itself. We discussed the length of the procedure and the need for fiberoptic laryngoscopy during the procedure. We discussed the risks, including bleeding, infection, failure to imp rove the voice/worsening of voice, extrusion of the implant, possible need for further surge ry, and the risks of anesthesia. All questions were answered to the best of my ability. After answering all questions to the best of my ability, Ms. Vuong has elected to under go medialization thyroplasty this Spring if there is no return of normal voice. I will see her the day before the procedure to confirm that the left vocal fold paralysis persists to l imit her trips to [place]. Informed consent was obtained in the office. I will forward th e information to my pharmacy sales assistant to arrange a surgical date and pre-operative evaluation. Rachid Steele M.D. Loader Operator Supervisor Laryngology and Head & Neck Surgery documented in this encounter Plan of Treatment Not on filedocumented as of this encounter Procedures + +--------+ + + + | Procedure Name | Priori | Date/Time | Associated Diagnosis | Comments | | | ty | | | | + +--------+ + + + | CO | Routin | 02/15/2012 | Left complete | | | LARYNGOSCOPY,DIRECT, | e | 12:46 AM | paralysis of vocal | | | SCOPE,INJ CORDS | | PST | cord Dysphonia | | | | | | Pharyngeal dysphagia | | + +--------+ + + + [...] | Procedure Note | + + | Bennett Faculty - 03/11/2012 2:35 PM PST | + + RADIOLOGY (01/07/2012 12:00 AM PDT) + + + | Narrative | Performed At | + + + | | | | | | + + + + + | Procedure Note | + + | Cristal Guajardo - 03/11/2012 2:34 PM PST | + + RADIOLOGY (01/07/2012 12:00 AM PDT) + + + | Narrative | Performed At | + + + | | | | | | + + + + + | Procedure Note | + + | Cristal Guajardo - 03/11/2012 2:30 PM PST | + + documented in this encounter Visit Diagnoses + + | Diagnosis | + + | Left complete paralysis of vocal cord - Primary Unilateral complete paralysis of | | vocal cords or larynx | + + | Dysphonia | + + | Pharyngeal dysphagia Dysphagia, pharyngeal phase | + + documented in this encounter
--- OUTSIDE RECORDS SUMMARY | ~2019-02-09 | XMS | Encounter Summary ---
Demographics + + + | Address | [address] | | | [place] [address] | + + + | Home Phone | | + + + | Preferred Language | Unknown | + + + | Marital Status | | + + + | Baptism Affiliation | [id number] | + + + [...] + | Prashanth Vuong | ECON | [address] | | | | | [place] | | | | | [address] | | + + + + + Care Team Providers + +------+ + | Care Vp Product Management Name | Role | Phone | + +------+ + | Farooq Wesley DO | PCP | | + +------+ + Encounter Details +--------+ + + + + | Date | Type | Department | Care Team | Description | +--------+ + + + + | 03/01/ | Abstract | [facility] | Farooq Wesley | | | 2017 | | [facility] | E, DO [address] | | | | | [facility] [address] | [place], [place] | | | | | [address] [place], | [address] | | | | | [place] [address] | [phone] | | | | | [phone] | | | +--------+ + + + [...] | Visit | | [place], DO [address] | | | | | | [place] | | | | | | [address] | | | | | | [phone] | | | | | | | | +--------+---------+ + + + documented as of this encounter Visit Diagnoses Not on filedocumented in this encounter"
--- OUTSIDE RECORDS SUMMARY | ~2019-02-09 | XMS | Encounter Summary ---
Demographics + + + | Address | [address] | | | [place] [address] | + + + | Home Phone [...] + | Author | [facility] | | | and [place] | + + + | Organization | [facility] | | | and [place] | + + + | Address | Unknown | + + + | Phone | Unavailable | + + + Support + + + + + | Name | Relationship | Address | Phone | + + + + + | Prashanth Vuong | ECON | [address] | | | | | [place] | | | | | [address] | | + + + + + Care Team Providers + +------+ + | Care Bullet Charging Machine Operator Name | Role | Phone | + +------+ + PCP | Unavailable | + +------+ + Encounter Details +--------+ + + + + | Date | Type | Department | Care Team | Description | +--------+ + + + + | 03/05/ | Hospital | [facility] | Silvano Kaiser MD | | | 1997 | Encounter | MED CTR XRAY [address] [place] | | | | | [place] | [address] | | | | | [place] [address] | [address] | | | | | [phone] | | | +--------+ + + + [...] [place] | | | | | | [address] | | | | | | [phone] | | | | | | | | +--------+---------+ + + + documented as of this encounter Visit Diagnoses Not on filedocumented in this encounter"
--- OUTSIDE RECORDS SUMMARY | ~2019-02-09 | XMS | Encounter Summary ---
Demographics + + + | Address | [address] | | | [place] [address] | + + + | Home Phone | | + + + | Preferred Language | Unknown | + + + | Marital Status | | + + + | Orthodoxy Affiliation | 1028 | + + + | Race | Unknown | + + + | Ethnic Group | Unknown | + + + Author + + + | Author | [facility] | | | and [place] | + + + | Organization | [facility] | | | and [place] | + + + | Address | Unknown | + + + | Phone | Unavailable | + + + Support + + + + + | Name | Relationship | Address | Phone | + + + + + | Prashanth Vuong | ECON | [address] | | | | | [place] | | | | | [address] | | + + + + + Care Team Providers + +------+ + | Care Asphalt Roller Person Name | Role | Phone | + +------+ + PCP | Unavailable | + +------+ + Encounter Details +--------+ + + + + | Date | Type | Department | Care Team | Description | +--------+ + + + + | 01/16/ | Hospital | [facility] | Silvano Kaiser MD | | | 1997 | Encounter | MED CTR GENERIC OP | [address] [place] | | | | | CONV DEPT [address] | [address] [place], [place] | | | | | [place], | [address] | | | | | [place] [address] | | | | | | [phone] | | | +--------+ + + + [...] [place] | | | | | | [address] | | | | | | [phone] | | | | | | | | +--------+---------+ + + + documented as of this encounter Visit Diagnoses Not on filedocumented in this encounter"
--- OUTSIDE RECORDS SUMMARY | ~2019-02-09 | XMS | Encounter Summary ---
Demographics + + + | Address | [address] | | | [place] [address] | + + + | Home Phone | | + + + | Preferred Language | Unknown | + + + | Marital Status | | + + + | Adventism Affiliation | 1028 | + + + | Race | Unknown | + + + | Ethnic Group | Unknown | + + + Author + + + | Author | [facility] | | | and [place] | + + + | Organization | [facility] | | | and [place] | + + + | Address | Unknown | + + + | Phone | Unavailable | + + + Support + + + + + | Name | Relationship | Address | Phone | + + + + + | Prashanth Vuong | ECON | [address] | | | | | [place] | | | | | [address] | | + + + + + Care Team Providers + +------+ + | Care Furnace Operator And Tender Name | Role | Phone | + +------+ + | Farooq Wesley DO | PCP | | + +------+ + Reason for Visit + + + | Reason | Comments | + + + | Medication Problem | | + + + Encounter Details +--------+ + + + + | Date | Type | Department | Care Team | Description | +--------+ + + + + | 12/24/ | Telephone | [facility] | Farooq Wesley | Medication Problem | | 2018 | | [facility] | E, DO [address] | | | | | MEDICAL CL[facility] [address] | [place], [place] | | | | [address] [place], | [address] | | | | | [place] [address] | [phone] | | | | | [phone] | | | +--------+ + + + [...] [place] | | | | | | [address] | | | | | | [phone] | | | | | | | | +--------+---------+ + + + documented as of this encounter Visit Diagnoses + + | Diagnosis | + + | Dog bite of hand, right, initial encounter - Primary | + + documented in this encounter"
--- OUTSIDE RECORDS SUMMARY | ~2019-02-09 | XMS | Encounter Summary ---
Demographics + + + | Address | [address] | | | [place] [address] | + + + | Home Phone | | + + + | Preferred Language | Unknown | + + + | Marital Status | | + + + | Congregation Affiliation | 1028 | + + + [...] + | Prashanth Vuong | ECON | [address] | | | | | [place] | | | | | [address] | | + + + + + Care Team Providers + +------+ + | Care Pharmaceutical Engineer Name | Role | Phone | + +------+ + | Farooq Wesley DO | PCP | | + +------+ + Reason for Visit +--------+ + | Reason | Comments | +--------+ + | Other | please call back | +--------+ + Encounter Details +--------+ + + + + | Date | Type | Department | Care Team | Description | +--------+ + + + + | 09/20/ | Telephone | [facility] | Farooq Wesley | Other (please call | | 2019 | | [facility] | E, DO [address] | back) | | | | MEDICAL CLINIC [address] | [place], [place] | | | | | [place], | [address] | | | | | [place] [address] | [phone] | | | | | [phone] | | | +--------+ + + + [...] [place] | | | | | | [address] | | | | | | [phone] | | | | | | | | +--------+---------+ + + + documented as of this encounter Visit Diagnoses Not on filedocumented in this encounter"
--- OUTSIDE RECORDS SUMMARY | ~2019-02-09 | XMS | Encounter Summary ---
Demographics + + + | Address | [address] | | | [place] [address] | + + + | Home Phone | | + + + | Preferred Language | Unknown | + + + | Marital Status | | + + + | Restoration Affiliation | 1028 | + + + | Race | Unknown | + + + | Ethnic Group | Unknown | + + + Author + + + | Author | [facility] | | | and [place] | + + + | Organization | [facility] | | | and [place] | + + + | Address | Unknown | + + + | Phone | Unavailable | + + + Support + + + + + | Name | Relationship | Address | Phone | + + + + + | Prashanth Vuong | ECON | [address] | | | | | [place] | | | | | [address] | | + + + + + Care Team Providers + +------+ + | Care Hand Shoes Sewer Name | Role | Phone | + +------+ + | Farooq Wesley DO | PCP | | + +------+ + Encounter Details +--------+ + + + + | Date | Type | Department | Care Team | Description | +--------+ + + + + | 03/05/ | Hospital | [facility] | Silvano Kaiser MD | Gastroesophageal | | 2016 | Encounter | MED CTR MP INTRA OP | [address], [place] | reflux disease with | | | | [address] | [address] [place], [place] | esophagitis (Primary | | | | [place], [place] | [address] | Dx); Other | | | | [address] | | dysphagia | | | | [phone] | | | +--------+ + + + [...] + + + | Blood Pressure | 146/61 | 03/05/2016 11:45 AM | | | | | PST | | + + + + + | Pulse | 52 | 03/05/2016 11:45 AM | | | | | PST | | + + + + + | Temperature | 36.6 C (97.9 F) | 03/05/2016 10:08 AM | | | | | PST | | + + + + + | Respiratory Rate | 16 | 03/05/2016 11:11 AM | | | | | PST | | + + + + + | Oxygen Saturation | 96% | 03/05/2016 11:45 AM | | | | | PST [...] | | | | | | | 7460-5060 MG-UNIT | | | | | | [...] [place] | | | | | | [address] | | | | | | [phone] | | | | | | | [...] | r pylori Ag | | | [facility] | | [...] [address] | [place] | [phone] | | [facility] | | [address] | | | - LABORATORY | | | | + + + + + EGD (03/05/2016 10:42 AM PST) + + | Specimen | + + | | + + + + -+ | Narrative | Performed At | + + -+ | | [facility] | | GastroenterologyPatient Name: Lita VuongProcedcorine Date: | PROVATION | | 03/05/2016 10:42 AMN: [id number] #: [id number] of | | | : 1940dmit Type: AmbulatoryAge: 75[facility]Gender: | | | FemaleNote Status: FinalizedAttending MD: Silvano Kaiser , | | | MDProcedure: Upper GI [...] the nurse | | | and the certified dialysis technician in the endoscopy suite. Mental Status [...] Scope In: 11:03:43 AMScope Out: 11:12:37 AM [place] | | | [facility], [address] [place] [address] | | | [phone] | | | - Discharge patient to [...] |Scope Out: 11:12:37 AM | | | [facility], [address] [place] [address] | | | [address] | | + + -+ + +---------+ [...] + | [facility] | [address] | [place] | [phone] | | [facility] | | [address] | | | - LABORATORY | | | | + + + + + Surgical Pathology Exam (03/05/2016 12:00 AM PST) + + | Specimen | + + | | + + + + + | Narrative | Performed At | + + + | SPECIMEN(S): A MID ESOPHAGEAL BIOPSY SPECIMEN SOURCE: [facility] PATHOLOGY | | ESOPHAGEAL BIOPSY CLINICAL HISTORY: [...] for increased epithelial eosinophils. | | | JVR:[facility]:C2NR GROSS DESCRIPTION: The specimen is labeled | | | "Lita Vuong," and designated "mid esophageal biopsy," on | | | the requisition. It is received in formalin and consists of eight | | | cream to burgundy colored tissue fragments, 0.1 to 0.5 cm. All into | | | (A1). yt:JVR:osito PERFORMING LABORATORY: Tissue processing and | | | slide preparation were performed by [employer], [facility] | | | [facility], [facility] [address], [place] [address] (Inseam Trimmer: Anthony Turner | | | Franko CLIA#: [id number]). Professional interpretation was performed | | | by [email or web address], [facility], [facility] | | | [place] [address] (Inseam Trimmer: Anthony | | | Franko Turner; CLIA#: [id number]). Diagnostician: Anthony Acosta | | | Yue PAGE Pathologist Electronically Signed 03/06/2016 | | + [...] Diagnosis | + + | Gastroesophageal reflux disease with esophagitis - Primary | + + | Other dysphagia | + + documented in this encounter [...] mL/hr | Arm | | CONTINUOUS, Starting Thu03/05/16 | | AM PST | | | | | at 1045, Pre-op | | | | | | + +---------+ +---+-------+--------+ +---+---+ | | | +---+---+ + +-------+ +-------+---+---+ | meperidine (DEMEROL) 100 mg/mL | Given | 03/05/20 | 50 mg | | | | injection PRN, Starting Thu | | 16 11:00 | | | [...]
--- OUTSIDE RECORDS SUMMARY | ~2019-02-09 | XMS | Encounter Summary ---
Demographics + + + | Address | [address] | | | [place] [address] | + + + | Home Phone | | + + + | Preferred Language | Unknown | + + + | Marital Status | | + + + | Sikh Affiliation | 1028 | + + + | Race | Unknown | + + + | Ethnic Group | Unknown | + + + Author + + + | Author | [facility] | | | and [place] | + + + | Organization | [facility] | | | and [place] | + + + | Address | Unknown | + + + | Phone | Unavailable | + + + Support + + + + + | Name | Relationship | Address | Phone | + + + + + | Prashanth Vuong | ECON | [address] | | | | | [place] | | | | | [address] | | + + + + + Care Team Providers + +------+ + | Care Industrial Security Analyst Name | Role | Phone | + [...] | Services | ogy | Dysphagia | Silvano Rose MD | Silvano Rose MD | | | Required | | Procedures | [address], | | | | | [place] UPPER GI | [address] [place] | [address] [address] | | | | | ENDOSCOPY,DI | [address] [place] | [place], | | | | | AGNOSIS [place] | [place], [place] | [place] [address] | | | | | UPPER GI | [address] | Phone: | | | | | ENDOSCOPY,BI | Phone: | [phone] | | | | | OPSY | [phone] | Fax: | | | | | | Fax: | [phone] | | | | | | [phone] | | +--------+ + + + + + Reason for Visit + + + | Reason | Comments | + + + | Appointment | | + + + Encounter Details +--------+ + + + + | Date | Type | Department | Care Team | Description | +--------+ + + + + | 09/21/ | Telephone | [facility] | Silvano Kaiser MD | Appointment | | 2012 | | GASTROENTEROLOGY | [address], [place] | | | | | [address] [place] | [address] [place], [place] | | | | | [address] [place], [place] | [address] | | | | | [address] | | | | | | [phone] | | | +--------+ + + + [...] [place] | | | | | | [address] | | | | | | [phone] | | | | | | | | +--------+---------+ + + + + + +--------+ + + | Name | Type | Priori | Associated Diagnoses | Order Schedule | | | | ty | | | + + +--------+ + + | Ambulatory referral | Outpatient | Routin | Dysphagia | Expected: | | to Gastroenterology | Referral | e | | 10/25/2012, Expires: | | | | | | 09/21/2013 | + + +--------+ + + documented as of this encounter Visit Diagnoses + + | Diagnosis | + + | Dysphagia - Primary Dysphagia, unspecified | + + documented in this encounter"
--- OUTSIDE RECORDS SUMMARY | ~2019-02-09 | XMS | Encounter Summary ---
Demographics + + + | Address | [address] | | | [place] [address] | + + + | Home Phone | | + + + | Preferred Language | Unknown | + + + | Marital Status | | + + + | Taoism Affiliation | 1028 | + + + [...] + | Prashanth Vuong | ECON | [address] | | | | | [place] | | | | | [address] | | + + + + + Care Team Providers + +------+ + | Care University Tutor Name | Role | Phone | + +------+ + PCP | Unavailable | + +------+ + Encounter Details +--------+ + + + + | Date | Type | Department | Care Team | Description | +--------+ + + + + | 06/09/ | Hospital | [facility] | Adalberto Bradley MD | | | 2006 - | Encounter | SURGICAL [address] | [address] | | | | | [place], | [address] | | | 06/12/ | | [place] [address] | [place] [address] | | | 2006 | | [phone] | [phone] | | | | | | | [...] [place] | | | | | | [address] | | | | | | [phone] | | | | | | | | +--------+---------+ + + + documented as of this encounter Visit Diagnoses Not on filedocumented in this encounter"
--- OUTSIDE RECORDS SUMMARY | ~2019-02-09 | XMS | Encounter Summary ---
Demographics + + + | Address | [address] | | | [place] [address] | + + + | Home Phone [...] + | Prashanth Vuong | ECON | [address] | | | | | [place] | | | | | [address] | | + + + + + Care Team Providers + +------+ + | Care Dermatology Procedural Physician Name | Role | Phone | + +------+ + | Farooq Wesley DO | PCP | | + +------+ + Encounter Details +--------+ + + + + | Date | Type | Department | Care Team | Description | +--------+ + + + + | 05/07/ | Hospital | [facility] | Curt Sandoval, | | | 2013 | Encounter | MED CTR MP INTRA OP | MD [address] [place] | | | | | [address] | [address] [place], | | | | | [place], [place] | [place] [address] | | | | | [address] | [phone] | | | | | [phone] | | | +--------+ + + + [...] [place] | | | | | | [address] | | | | | | [phone] | | | | | | | [...] + | [facility] | [address] | [place], [place] | [phone] | | [facility] | | [address] | | | - LABORATORY | | | | + + + + + | [address] | [address] | [place], [place] | | | [facility] | | [address] | | | - LABORATORY | | | | + + + + + documented in this encounter Visit Diagnoses Not on filedocumented in this encounter"
--- OUTSIDE RECORDS SUMMARY | ~2019-02-09 | XMS | Encounter Summary ---
Demographics + + + | Address | [address] | | | [place] [address] | + + + | Home Phone [...] + + | Author | [facility] | | | and [place] | + + + | Organization | [facility] | | | and [place] | + + + | Address | Unknown | + + + | Phone | Unavailable | + + + Support + + + + + | Name | Relationship | Address | Phone | + + + + + | Prashanth Vuong | ECON | [address] | | | | | [place] | | | | | [address] | | + + + + + Care Team Providers + +------+ + | Care Military Administrative Technician Name | Role | Phone | + +------+ + | Farooq Wesley DO | PCP | | + +------+ + Encounter Details +--------+---------+ + + + | Date | Type | Department | Care Team | Description | +--------+---------+ + + + | 03/05/ | Surgery | [facility] | Silvano Kaiser MD | EGD | | 2016 | | MED CTR MP INTRA OP | [address] [place] | | | | | [address] | [address] [place], [place] | | | | | [place], [place] | [address] | | | | | [address] | | | | | | [phone] | | | +--------+---------+ + + + [...] | | | | | | | 9227-0308 MG-UNIT | | | | | | [...] Care | [facility]o Farooq | | | 2019 | Visit | | E, DO [address] | | | | | | [place] | | | | | | [address] | | | | | | [phone] | | | | | | | [...] + | [facility] | [address] | [place] | [phone] | | [facility] | | [address] | | | - LABORATORY | | | | + + + + + EGD (03/05/2016 10:42 AM [facility]) + + | Specimen | + + | | + + + + -+ | Narrative | Performed At | + + -+ | | [facility] | | GastroenterologyPatient Name: Lita VuongProcedcorine Date: | PROVATION | | 03/05/2016 10:42 AMMRN: [id number] #: [id number] of | | | : 1940dmit Type: AmbulatoryAge: 75Room: [facility] 01Gender: | | | FemaleNote Status: FinalizedAttending [...] the nurse | | | and the remediation technician in the endoscopy suite. Mental Status [...] Scope In: 11:03:43 AMScope Out: 11:12:37 AM [place] | | | [facility], [address] [place] [address] | | | [phone] | | | - Discharge patient to [...] |Scope Out: 11:12:37 AM | | | [facility], [address] [place] [address] | | | [address] | | + + -+ + +---------+ [...] (H) | 70 - 150 mg/dL | PROVIDECHESTERE | | | POC | [...] ST. | [address] | [place] | [phone] | | [facility] | | [address] | | | - LABORATORY | | | | + + + + + Surgical Pathology Exam (03/05/2016 12:00 AM PST) + + | Specimen | + + | | + + + + + | Narrative | Performed At | + + + | SPECIMEN(S): A MID ESOPHAGEAL BIOPSY SPECIMEN SOURCE: [facility] | | ESOPHAGEAL BIOPSY CLINICAL [...] for increased epithelial eosinophils. | | | JVR:[facility]:C2NR GROSS DESCRIPTION: The specimen is labeled | [...] | | slide preparation were performed by [facility] | | | [facility], [address], [place] [address] (Locomotive Repairer Diesel: Anthony Turner | | | Franko CLIA#: [id number]). Professional interpretation was performed | | | by [employer], [facility], [facility] | | | [facility], [place] [address] (Locomotive Repairer Diesel: Anthony | | | Franko Turner; CLIA#: [id number]). Diagnostician: Anthony Acosta | | | Yue [...]
--- OUTSIDE RECORDS SUMMARY | ~2019-02-09 | XMS | Encounter Summary ---
Demographics + + + | Address | [address] | | | [place] [address] | + + + | Home Phone | | + + + | Preferred Language | Unknown | + + + | Marital Status | | + + + | Jewish Affiliation | 1028 | + + + [...] + | Prashanth Vuong | ECON | [address] | | | | | [place] | | | | | [address] | | + + + + + Care Team Providers + +------+ + | Care Forge Hand Name | Role | Phone | + [...] + + | 06/09/ | Office | [facility] | Oh Landrum PA | JOSSELINE on CPAP (Primary | | 2012 | Visit | SLEEP DISORDER [address] | [address] | Dx) | | | | [address] [place] | [place] | | | | | [place] [address] | [address] | | | | | [phone] | | | +--------+---------+ + + + [...] Insomnia Severity Index Insomnia Severity Index 16 [place] Sleepiness Scale Sitting and reading 2 Watching [...] 40.33 MH 41.56 PCS 41.89 MCS 36.87 Oh Dunlap PA - 1:10 PM PDT Subjective: Patient ID: Lita Vuong is a 72 y.o. female. HPI last office visit was: 03/05/2012 date of polysomnography: 11/14/2005 AHI: 17.5 O2%: 87% Machine type: ResMed S9 with nasal mask obtained from: [facility] [place] pressure is: 5-10 cm 95%: 7.0 cm [...] months, sooner prn. Fifteen minutes were spent oekv-oh-jlon, w ith the majority of time spent in counseling. Oh Landrum PA-C cc: Morris Wesley MD documented in this enco unter Plan of Treatment +--------+---------+ + + + | Date | Type | Specialty | Care Team | Description | +--------+---------+ + + + | 02/09/ | Office | Primary Care | Farooq Wesley | | | 2018 | Visit | | [place], [address] | | | | | | [place] | | | | | | [address] | | | | | | [phone] | | | | | | | | +--------+---------+ + + + documented as of this encounter Visit Diagnoses + + | Diagnosis | + + | JOSSELINE on CPAP - Primary Obstructive sleep apnea (adult) (pediatric) | + + documented in this encounter"
--- OUTSIDE RECORDS SUMMARY | ~2019-02-09 | XMS | Encounter Summary ---
Demographics + + + | Address | [address] | | | [place] [address] | + + + | Home Phone [...] + | Prashanth Vuong | ECON | [address] | | | | | [place] | | | | | [address] | | + + + + + Care Team Providers + +------+ + | Care Window Unit Air Conditioning Mechanic Name | Role | Phone | + +------+ + | Farooq Wesley DO | PCP | | + +------+ + Encounter Details +--------+ + + + + | Date | Type | Department | Care Team | Description | +--------+ + + + + | 02/03/ | Hospital | [facility] | Silvano Kaiser MD | Esophageal dysphagia | | 2017 | Encounter | MED [facility] OP | [address], [place] | (Primary Dx) | | | | [address] | [address] [place], [place] | | | | | [place], [place] | [address] | | | | | [address] | | | | | | [phone] | | | +--------+ + + + [...] | Blood Pressure | 171/72 | 02/03/2017 10:45 AM | | | | | PST | | + + + + + | Pulse | 52 | 02/03/2017 10:35 AM | | | | | PST | | + + + + + | Temperature | 36.1 C (97 F) | 02/03/2017 10:17 AM | | | | | PST | | + + + + + | Respiratory Rate | 14 | 02/03/2017 10:45 AM | | | | | PST | | + + + + + | Oxygen Saturation | 97% | 02/03/2017 10:35 AM | | | | | PST | | + + + + + | Inhaled Oxygen | - | - | | | Concentration | | | | + + + + + | Weight | 72.5 kg (159 lb 13.3 | 02/03/2017 8:27 AM | | | | oz) | PST | | + + + + + | Height | 154.9 cm (5' 1") | 02/03/2017 8:27 AM | | | | | PST | | + + + + + | Body Mass Index | 30.2 | 02/03/2017 8:27 AM | | | | | PST [...] | 0 | | | | (EPIPEN 2-HOLELY) 0.3 | the muscle as | | [...] [place] | | | | | | [address] | | | | | | [phone] | | | | | | | | +--------+---------+ + + + documented as of this encounter Procedures + +--------+ + + + | Procedure Name | Priori | Date/Time | Associated Diagnosis | Comments | | | ty | | | | + +--------+ + + + | HELICOBACTER PYLORI | Routin | 02/03/2017 | | Results for this | | BIOPSY | e | 10:08 AM | | procedure are in the | | | | PST | | results section. | + +--------+ + + + | EGD | | 02/03/2017 | Dyskinesia of | | | | | 9:59 AM | esophagus (K22.4), | | | | | PST | Advanced age (R54) | | + +--------+ + + + | EGD | Routin | 02/03/2017 | | Results for this | | | e | 9:42 AM | | procedure are in the | | | | PST | | results section. | + +--------+ + + + | POC GLUCOSE | Routin | 02/03/2017 | | Results for this | | | e | 9:19 AM | | procedure are in the | | | | PST | | results section. | + +--------+ + + + documented in this encounter Results Helicobactor pylori Biopsy (02/03/2017 10:08 AM PST) + + + + + [...] [address] | [place] | [phone] | | [facility] | | [address] | | | - LABORATORY | | | | + + + + + EGD (02/03/2017 9:42 AM PST) + + | Specimen | + + | | + + + + -+ | Narrative | Performed At | + + -+ | | [facility] | | GastroenterologyPatient Name: Lita VuongProcedure Date: | [facility] | | 02/03/2017 9:42 AMMRN: [id number] #: [id number] of : | | | 1940dmit Type: AmbulatoryAge: 76Room: [facility] 01Gender: FemaleNote | | | Status: FinalizedAttending MD: VIN Velasquezrocedure: | | | Upper GI endoscopyIndications: Esophageal | | | dysphagiaProviders: Silvano Kaiser MD, Rosi Perez RN, | | | Amie Fraser, Casing Tier, Dash | | | MD Danelle (Anesthesia Staff)Referring MD: Morris Wesley DO | | | (Referring MD)Medicines: Sedation Required Anesthesia | | | Staff AssistanceComplications: No immediate complications. | | | Estimated [...] were verified by the physician, the nurse, | | | the anesthesiologist and the endoscopy specialty technician in the endoscopy suite. | | | Mental Status Examination: alert and oriented. Airway | | | Examination: normal oropharyngeal airway and neck mobility and | | | Mallampati Class III (part of the uvula and soft palate | | | visualized). Respiratory Examination: clear to auscultation. CV | | | Examination: normal. Prophylactic Antibiotics: The patient | | | does not require prophylactic antibiotics. Prior Anticoagulants: | | | The patient has taken no previous anticoagulant or antiplatelet | | | agents. ASA Grade Assessment: III - A patient with severe | | | systemic disease. After reviewing the risks and benefits, the | | | patient was deemed in satisfactory condition to undergo the | | | procedure. The anesthesia plan was to use monitored anesthesia | | | care (MAC). Immediately prior to administration of medications, | [...] condition to undergo the procedure. - Using IV | | | propofol under the supervision of an anesthesiologist was | | | determined to be medically necessary for this procedure based on age | | | 65 or older and patient's history of sleep apnea. - [...] | third of the esophagus were normal. There was a small hiatal | | | hernia A mild Schatzki ring (acquired) was found at the | | | gastroesophageal junction. A mild Schatzki ring | | | (acquired) was found in the lower third of the esophagus. The | | | second ring was found to centimeters above the EG junction A | | | TTS dilator was passed through the scope. Dilation with an | | | 18-19-20 mm pyloric balloon dilator was performed. There was | | | dilatation and disruption of both rings Localized mildly | | | erythematous mucosa without bleeding was found in the gastric | | | antrum. Biopsies were taken with a cold forceps for Helicobacter | | | pylori testing using CLOtest. Verification of patient | | | identification for the specimen was done. Estimated blood loss | | | was minimal. The duodenal bulb, first portion of the duodenum, | | | second portion of the duodenum, area of the papilla and third | | | portion of the duodenum were normal. The retroflexed view | | | confirmed previous findings,Impression: - Normal | | | cricopharyngeus, upper third of esophagus and middle third of | | | esophagus. Small hiatal hernia - Mild Schatzki ring. Dilated at | | | the EG junction - Mild Schatzki ring. 2 cm proximal to the EG | | | junction Dilated. - Erythematous mucosa in the antrum. Biopsied. | | | - Normal duodenal bulb, first portion of the duodenum, second | | | portion of the duodenum, area of the papilla and third portion | | | of the duodenum. - The retroflexed view confirmed [...] Continue | | | present medications. - Repeat upper endoscopy PRN for | | | retreatment. - Return to primary care physician as previously | | | scheduled. - Telephone GI clinic if symptomatic.Silvano Kaiser | | | 02/03/2017 10:23:57 AMThis report has been signed | | | electronically.Number of Addenda: 0Note Initiated On: 02/03/2017 9:42 | | | AMTotal Procedure Duration: 0 hours 6 minutes 17 seconds Scope In: | | | 10:05:09 AMScope Out: 10:11:26 AM [facility] | | | [place], [address] [place] [address] | | | - Discharge patient to home (ambulatory). | | | - Mechanical soft diet today. | | | - Continue present medications. | | | - Repeat upper endoscopy PRN for retreatment. | | | - Return to primary care physician as previously scheduled. | | | - Telephone GI clinic if symptomatic. | | |Silvano Kaiser MD | | |02/03/2017 10:23:57 AM | | |This report has been signed electronically. | | |Number of Addenda: 0 | | |Note Initiated On: 02/03/2017 9:42 AM | | |Total Procedure Duration: 0 hours 6 minutes 17 seconds | | |Scope In: 10:05:09 AM | | |Scope Out: 10:11:26 AM | | | [facility], [address] [facility], [place] | | | [address] | | + + -+ + +---------+ + + | Performing | Address | City/State/Zipcode | Phone Number | | Organization | | | | + +---------+ + + | [facility] [place] | | | | + +---------+ + + POC Glucose (02/03/2017 9:19 AM PST) + +---------+ + + + | Component | Value | Ref Range | Performed | Pathologist | | | | | At | Signature | + +---------+ + + + | Glucose, | 137 (H) | 70 - 109 mg/dL | [facility] | | | POC | | | [facility] | | [...] + + | [facility] | [address] | [place] | [phone] | | [facility] | | [address] | | | - LABORATORY | | | | + + + + + documented in this encounter Visit Diagnoses + + | Diagnosis | + + | Esophageal dysphagia - Primary Dysphagia, pharyngoesophageal phase | + + documented in this encounter Administered Medications + +---------+ [...] +---------+ +------+------+------+ +---+---+ | | | +---+---+ documented in this encounter
--- OUTSIDE RECORDS SUMMARY | ~2019-02-09 | XMS | Encounter Summary ---
Demographics + + + | Address | [address] | | | [place] [address] | + + + | Home Phone [...] + | Prashanth Vuong | ECON | [address] | | | | | [place] | | | | | [address] | | + + + + + Care Team Providers + +------+ + | Care Auto Mechanic Supervisor Name | Role | Phone | [...] + + | 03/11/ | Telephone | [facility] | Silvano Kaiser MD | Results, Pathology | | 2016 | | GASTROENTEROLOGY | [address], [place] | (egd) | | | | [address] [place] | [address] [place], [place] | | | | | [address] [place], [place] | [address] | | | | | [address] | | | | | | [phone] | | | +--------+ + + + [...] | Office | Primary Care | Farooq Wseley | | | 2018 | Visit | | [address] | | | | | | [place] | | | | | | [address] | | | | | | [phone] | | | | | | | | +--------+---------+ + + + documented as of this encounter Visit Diagnoses Not on filedocumented in this encounter"
--- OUTSIDE RECORDS SUMMARY | ~2019-02-09 | XMS | Encounter Summary ---
Demographics + + + | Address | [address] | | | [place] [address] | + + + | Home Phone | | + + + | Preferred Language | Unknown | + + + | Marital Status | | + + + | Zoroastrianism Affiliation | 1028 | + + + | Race | Unknown | + + + | Ethnic Group | Unknown | + + + Author + + + | Author | [facility] | | | and [place] | + + + | Organization | [facility] | | | and [place] | + + + | Address | Unknown | + + + | Phone | Unavailable | + + + Support + + + + + | Name | Relationship | Address | Phone | + + + + + | Prashanth Vuong | ECON | [address] | | | | | [place] | | | | | [address] | | + + + + + Care Team Providers + +------+ + | Care Agent Ticketing Gate Name | Role | Phone | + +------+ + | Farooq Wesley DO | PCP | | + +------+ + Encounter Details +--------+---------+ + + + | Date | Type | Department | Care Team | Description | +--------+---------+ + + + | 04/23/ | Surgery | [facility] | Silvano Kaiser MD | EGD | | 2019 | | MED CTR MP INTRA OP | [address], [place] | | | | | [address] | [address] [place], [place] | | | | | [place], [place] | [address] | | | | | [address] | | | | | | [phone] | | | +--------+---------+ + + + [...] antacid medicine. Ask your healthcare provider about zsyy-wnx-gfwwtlx andp rescription medicines that may help. Ask about surgery, if needed. Surgery is a treatment choice for some people. Your health care provider can determine if surgery is an option for you. Date Last Reviewed: 12/22/201519991365-[address] [employer] [place] [address]. All righ ts reserved. This information is [...] that are mashed or put through a asphalt blender. In addition, you may need to [...] treatment to prevent complications. Work with your [facility] provider to learn what you can do to protect your health. For more information, co ntact the [place] [employer],www.diabetes.org. Long-term concerns With treatment, most people can manage their symptoms and maintain their usual routines. If your symptoms are moderate to severe, you may need to see your healthcare provider more oft en for checkups. Also, other treatments will likely be needed. Date Last Reviewed: 10/04/201519995163-4251 [employer]. [address] [place] [address], [place] [address]. All righ ts reserved. This information is [...] heart rate Chest pain Date Last Reviewed: 03/21/201519999311-3649 [employer]. [address] [place] [address]. All righ ts reserved. This information is [...] [place] | | | | | | [address] | | | | | | [phone] | | | | | | | [...] [address], | REFERENCE LAB | | [place] [id number] Automotive Repair Technician: Jose Jones MD, Phone: | [facility] | | [phone] | | + + + + + + + + | Performing | Address | City/State/Zipcode | Phone Number | | Organization | | | | + + + + + | REFERENCE LAB | [address] | [place] [address] | [phone] | | [facility] | [address] | [place] | [phone] | | [facility] | | [address] | | | - LABORATORY | | [...] + | [facility] | [address] | [place] | [phone] | | [facility] | | [address] | | | - LABORATORY | | [...] [address] | [place] | [phone] | | [facility] | | [address] | | | - LABORATORY | | [...] [address], | REFERENCE LAB | | [place], [place] [id number] Automotive Repair Technician: Jose Jones MD, Phone: | [facility] | | [phone] | | + + + + + + + + | Performing | Address | City/State/Zipcode | Phone Number | | Organization | | | | + + + + + | REFERENCE LAB | [address] | [place] [address] | [phone] | | [facility] | Drive [...] [address] | [place] | [phone] | | [facility] | | [address] | | | - LABORATORY | | [...] + | [facility] | [address] | [place] | [phone] | | [facility] | | [address] | | | - LABORATORY | | [...] ST. | [address] | [place], [place] | [phone] | | [facility] | | [address] | | | - LABORATORY | | [...] [address] | [place] | [phone] | | [facility] | | [address] | | | - LABORATORY | | [...] r pylori Ag | | | [facility] | | | | | [...] [address] | [place] | [phone] | | [facility] | | [address] | | | - LABORATORY | | | | + + + + + EGD (04/23/2018 12:13 PM PST) + + | Specimen | + + | | + + + + -+ | Narrative | Performed At | + + -+ | | [facility] | | GastroenterologyPatient Name: Lita VuongProcedure Date: 04/23/2018 | [facility] | | 12:13 PMMRN: [id number] #: [id number] of : | | | 1940dmit Type: AmbulatoryAge: 77Room: [facility] 01Gender: FemaleNote | | | Status: FinalizedAttending MD: Silvano Kaiser , MDProcedure: | | | Upper GI endoscopyIndications: Esophageal | | | dysphagiaProviders: Silvano Kaiser MD, Jeanette Womack, | | | RNWillow, Ophthalmology Surgical Technician, Virgilio Grissom | | | MD Satish [...] the anesthesiologist and | | | the environmental services technician in the endoscopy suite. Mental [...] PMScope Out: | | | 12:31:45 PM [facility], [address] | | | [place] [address] | | | - Discharge patient to [...] |Scope Out: 12:31:45 PM | | | [facility], [address], [place] | | | [address] | | + + -+ + +---------+ [...] 04/23/2018 | [facility] | | 12:12 PMMRN: [id number] #: [id number] of : | | | 1Admit Type: AmbulatoryAge: 77Room: [facility] 01Gender: FemaleNote | | | Status: FinalizedAttending MD: Silvano Kaiser , [facility]cedure: | | | ColonoscopyIndications: Chronic diarrheaProviders: | | | Silvano Kaiser MD, Jeanette Womack RN, Willow Vergara, | | | Ophthalmology Surgical Technician, Virgilio Covarrubias MD (Anesthesia | | | [...] | | | PMScope Out: 1:03:32 PM [facility], [address] | | | [place] [address] | | | instructions were provided to [...] |Scope Out: 1:03:32 PM | | | [facility], [address] [facility], [place], [place] | | | [address] | | + + -+ + +---------+ [...] | The technical component was performed by [employer], [address] | | | [facility] [address] (Contracts Paralegal: Sharda Baxter MD; | | | CLIA# [id number]). Professional interpretation was performed by | | | [employer] [facility], [address] [place] [address] | | | [place] [address] (Contracts Paralegal: Grace Hill MD; | | | CLIA# [id number]). Diagnostician: Chip Chang MD | | | [...]
--- OUTSIDE RECORDS SUMMARY | ~2019-02-09 | XMS | Encounter Summary ---
Demographics + + + | Address | [address] | | | [place] [address] | + + + | Home Phone | | + + + | Preferred Language | Unknown | + + + | Marital Status | | + + + | Moravian Affiliation | 1028 | + + + | Race | Unknown | + + + | Ethnic Group | Unknown | + + + Author + + + | Author | [facility] | | | and [place] | + + + | Organization | [facility] | | | and [place] | + + + | Address | Unknown | + + + | Phone | Unavailable | + + + Support + + + + + | Name | Relationship | Address | Phone | + + + + + | Prahsanth Vuogn | ECON | [address] | | | | | [place] | | | | | [address] | | + + + + + Care Team Providers + +------+ + | Care Payment Poster Name | Role | Phone | + [...] | | | | | [place] [address] | | +--------+ + + + + [...] | Visit | | E, DO [address] | | | | | | [place] | | | | | | [address] | | | | | | [phone] | | | | | | | | +--------+---------+ + + + documented as of this encounter Visit Diagnoses Not on filedocumented in this encounter"
--- OUTSIDE RECORDS SUMMARY | ~2019-02-09 | XMS | Encounter Summary ---
Demographics + + + | Address | [address] | | | [place] [address] | + + + | Home Phone | | + + + | Preferred Language | Unknown | + + + | Marital Status | | + + + | Mormon Affiliation | 1028 | + + + | Race | Unknown | + + + | Ethnic Group | Unknown | + + + Author + + + | Author | [facility] | | | and [place] | + + + | Organization | [facility] | | | and [place] | + + + | Address | Unknown | + + + | Phone | Unavailable | + + + Support + + + + + | Name | Relationship | Address | Phone | + + + + + | Prashanth Vuong | ECON | [address] | | | | | [place] | | | | | [address] | | + + + + + Care Team Providers + +------+ + | Care Potter Or Ceramic Artist Name | Role | Phone | + +------+ + | Farooq Wesley DO | PCP | | + +------+ + Reason for Referral Self-referral (Routine) + + + + + + + | Status | Reason | Specialty | Diagnoses / | Referred By | Referred To | | | | | Procedures | Contact | Contact | + + + + + + + | Authorized | Specialty | Orthopedic | Diagnoses | Maryjane, | Summer, | | | Services | Surgery | Right ankle | Farooq Rose, | Ben Spain MD | | | Required | | pain, | DO [address] | | | | | unspecified | [address] [place] | [place] | | | | | chronicity | [place], [place] | [place], [place] | | | | | | [address] | [address] | | | | | | Phone: | Phone: | | | | | | [phone] | [phone] | | | | | | Fax: | Fax: | | | | | | [phone] | [phone] | + + + + + + + Reason for Visit + + + | Reason | Comments | + + + | Lab Results | | + + + | Fatigue | Fu | + + + | Diabetes Mellitus | foot exam | | Management | | + + + Encounter Details +--------+---------+ + + + | Date | Type | Department | Care Team | Description | +--------+---------+ + + + | 08/25/ | Office | [facility] | Farooq Wesley | Fatigue, unspecified | | 2019 | Visit | [facility] | E, DO [address] | type (Primary Dx); | | | | MEDICAL CLIN[facility] [address] | [place], [place] | Bradycardia; | | | | [address] [place], | [address] | Controlled type 2 | | | | [place] [address] | [phone] | diabetes mellitus | | | | [phone] | | without | | | | | | complication, | | | | | | without long-term | | | | | | current use of | | | | | | insulin ([facility]); Right | | | | | | ankle pain, | | | | | | unspecified | | | | | | chronicity | +--------+---------+ + + + Social History [...] + + + | Blood Pressure | 130/70 | 08/25/2018 10:54 AM | | | | | PDT | | + + + + + | Pulse | 46 | 08/25/2018 10:54 AM | | | | | PDT | | + + + + + | Temperature | - | - | | + + + + + | Respiratory Rate | 16 | 08/25/2018 10:54 AM | | | | | PDT | | + + + + + | Oxygen Saturation | 96% | 08/25/2018 10:54 AM | | | | | PDT | | + + + + + | Inhaled Oxygen | - | - | | | Concentration | | | | + + + + + | Weight | 72.6 kg (160 lb) | 08/25/2018 10:54 AM | | | | | PDT | | + + + + + | Height | 154.9 cm (5' 1") | 08/25/2018 10:54 AM | | | | | PDT | | + + + + + | Body Mass Index | 30.23 | 08/25/2018 10:54 AM | | | | | PDT | | + + + + + documented in this encounter Progress Notes Farooq Wesley, DO - 08/25/2018 11:00 AM PDT Patient ID: Lita Vuong is a 78 y.o. year old female Chief Complaint Patient presents with Lab Results Fatigue Fu Diabetes Mellitus Management foot exam Assessment: Fatigue, unspecified type (Primary) - Holter monitor - 48 hour; Future; Expected date: 08/25/2018 Bradycardia - Holter monitor - 48 hour; Future; Expected date: 08/25/2018 Controlled type 2 diabetes mellitus without complication, without long-term current use of insulin (HCC) Right ankle pain, unspecified chronicity - Ambulatory referral to Orthopedic Surgery Plan: -Order for Holter Monitor for 48 hours, the hospital will call you to schedule placement. -Continue current medications -Referral to Dr. [facility], his office will call you to schedule appointment -Follow up PRN Subjective: HARMAN London presents to the clinic today to review recent blood work, fatigue and foot exam. Her last sleep study she was told she didn't need to use a CPAP machine. She takes Metoprolol Succinate 25 mg daily. When she is fatigued she will take her blood sugar and blood pressure and they are normal, her heart rate some times will be as low as 45 bpm. Reviewed recent blood work with her. Her TSH was 1.40, she takes Levothyroxine 75 mcg. Her A1C is 6.8, she manages with her diet. Her GRF is 47. She would like a referral to Dr. [facility] in [place], she has worked with him Chrends Ecinity. She is having right ankle pain. She has bone spur. She uses SolanPas Patches without co mplete pain relief. Current Outpatient Medications Medication Sig Dispense Refill [...] by mouth Erick y. 90 tablet 3 metoprolol succinate (TOPROL-XL) 25 mg 24 hr tablet Take 1 tablet by mouth Daily. 890 t ablet 3 Multiple Vitamins-Minerals (MULTIVITAMIN PO) Take 1 [...] Schatzki's ring Change in bowel habits Nocturia Social History Socioeconomic History Marital status: Spouse [...] file Social History Narrative Not on file Review of Systems Constitutional: Positive for fatigue. Respiratory: Negative for shortness of breath. Cardiovascular: Negative for chest pain and palpitations. Low heart rate Musculoskeletal: Right ankle pain. Objective: Vitals: BP 130/70 | Pulse (!) 46 | Resp 16 | Ht 1.549 m (5' 1") | Wt 72.6 kg (160 lb) | LMP ( LMP Unknown) | SpO2 96% | ? No | BMI 30.23 kg/m Physical Exam Constitutional: She is oriented to person, place, and time. She appears well-developed and well-nourished. Eyes: EOM are normal. Cardiovascular: Normal rate, regular rhythm and normal heart sounds. Pulmonary/Chest: Effort normal and breath sounds normal. Neurological: She is alert and oriented to person, place, and time. Psychiatric: She has a normal mood and affect. Diabetic Foot Exam Visual Observations: Left Foot: Callus is noted. Comment: base 5th toe Dry skin is noted. Thickened nails are noted. Comment: brittle Right Foot: Dry skin is noted. Thickened nails are noted. Comment: brittle nails Pulse - Vascular Status: Left Foot: Palpable Right Foot: Palpable Sensory - Monofilament: Left Foot: Normal Comment: no sensation along 5th toe but just took lidocaine patch off Right Foot: Normal Entered by Brian Coronado [facility], acting as scribe for Morris Wesley D.O. The documentation recorded by the scribe accurately reflects the service I personally perfo rmed and the decisions made by me. documented in this encounter Plan of Treatment +--------+---------+ + + + | Date | Type | Specialty | Care Team | Description | +--------+---------+ + + + | 02/09/ | Office | Primary Care | Farooq Wesley | | | 2018 | Visit | | E, DO [address] | | | | | | [place] | | | | | | [address] | | | | | | [phone] | | | | | | | | +--------+---------+ + + + + + +--------+ + + | Name | Type | Priori | Associated Diagnoses | Order Schedule | | | | ty | | | + + +--------+ + + | Orthopedic Surgery, | Outpatient | Routin | Right ankle pain, | Ordered: 08/25/2018 | | External - AMB | Referral | e | unspecified | | | Referral | | | chronicity | | + + +--------+ + + documented as of this encounter Results Holter monitor - 48 hour (09/15/2018 8:13 AM PDT) + + + | Narrative | Performed At | + + + | | | + + + + +---------+ + + | Performing | Address | City/State/Zipcode | Phone Number | | Organization | | | | + +---------+ + + | [facility] | | | | + +---------+ + + documented in this encounter Visit Diagnoses + + | Diagnosis | + + | Fatigue, unspecified type - Primary | + + | Bradycardia Other specified cardiac dysrhythmias | + + | Controlled type 2 diabetes mellitus without complication, without long-term current | | use of insulin (HCC) | + + | Right ankle pain, unspecified chronicity | + + documented in this encounter
--- OUTSIDE RECORDS SUMMARY | ~2019-02-09 | XMS | Encounter Summary ---
Demographics + + + | Address | [address] | | | [place] [address] | + + + | Home Phone | | + + + | Preferred Language | Unknown | + + + | Marital Status | | + + + | Gnosticist Affiliation | 1028 | + + + | Race | Unknown | + + + | Ethnic Group | Unknown | + + + Author + + + | Author | [facility] | | | and [place] | + + + | Organization | [facility] | | | and [place] | + + + | Address | Unknown | + + + | Phone | Unavailable | + + + Support + + + + + | Name | Relationship | Address | Phone | + + + + + | Prashanth Vuong | ECON | [address] | | | | | [place] | | | | | [address] | | + + + + + Care Team Providers + +------+ + | Care Central Lab Technician Name | Role | Phone | + +------+ + | Farooq Wesley DO | PCP | | + +------+ + Reason for Visit +--------+ + | Reason | Comments | +--------+ + | Other | mychart message | +--------+ + Encounter Details +--------+ + + + + | Date | Type | Department | Care Team | Description | +--------+ + + + + | 12/17/ | Telephone | [facility] | Farooq Wesley | Other (mychart | | 2018 | | [facility] | E, DO [address] | message) | | | | MEDICAL CLIN[facility] [address] | [place], [place] | | | | | [place], | [address] | | | | | [place] [address] | [phone] | | | | | [phone] | | | +--------+ + + + [...] [place] | | | | | | [address] | | | | | | [phone] | | | | | | | | +--------+---------+ + + + documented as of this encounter Visit Diagnoses Not on filedocumented in this encounter"
--- OUTSIDE RECORDS SUMMARY | ~2019-02-09 | XMS | Encounter Summary ---
Demographics + + + | Address | [address] | | | [place] [address] | + + + | Home Phone | | + + + | Preferred Language | Unknown | + + + | Marital Status | | + + + | Zoroastrianism Affiliation | 1028 | + + + | Race | Unknown | + + + | Ethnic Group | Unknown | + + + Author + + + | Author | [facility] | | | and [place] | + + + | Organization | [facility] | | | and [place] | + + + | Address | Unknown | + + + | Phone | Unavailable | + + + Support + + + + + | Name | Relationship | Address | Phone | + + + + + | Prashanth Vuong | ECON | [address] | | | | | [place] | | | | | [address] | | + + + + + Care Team Providers + +------+ + | Care Figure Model Name | Role | Phone | + [...] Medication Refill | | 2017 | | [facility] | [address] | | | | | MEDICAL CLIN[facility] [address] | | | | | | [address] [place], | | | | | | [place] [address] | | | | | | [phone] | | | +--------+--------+ + + + [...] [place] | | | | | | [address] | | | | | | [phone] | | | | | | | | +--------+---------+ + + + documented as of this encounter Visit Diagnoses Not on filedocumented in this encounter"
--- OUTSIDE RECORDS SUMMARY | ~2019-02-09 | XMS | Encounter Summary ---
Demographics + + + | Address | [address] | | | [place] [address] | + + + | Home Phone | | + + + | Preferred Language | Unknown | + + + | Marital Status | | + + + | Islam Affiliation | 1028 | + + + | Race | Unknown | + + + | Ethnic Group | Unknown | + + + Author + + + | Author | [facility] | | | and [place] | + + + | Organization | [facility] | | | and [place] | + + + | Address | Unknown | + + + | Phone | Unavailable | + + + Support + + + + + | Name | Relationship | Address | Phone | + + + + + | Prashanth Vuong | ECON | [address] | | | | | [place] | | | | | [address] | | + + + + + Care Team Providers + +------+ + | Care Environmental Research Scientist Name | Role | Phone | + +------+ + PCP | Unavailable | + +------+ + Encounter Details +--------+ + + + + | Date | Type | Department | Care Team | Description | +--------+ + + + + | 11/25/ | Hospital | [facility] | Silvano Kaiser MD | | | 2006 | Encounter | MED CTR GENERIC OP | [address] | | | | | CONV DEPT [address] | [address] [place], [place] | | | | | [place], | [address] | | | | | [place] [address] | | | | | | [phone] | | | +--------+ + + + [...] [place] | | | | | | [address] | | | | | | [phone] | | | | | | | | +--------+---------+ + + + documented as of this encounter Visit Diagnoses Not on filedocumented in this encounter"
--- OUTSIDE RECORDS SUMMARY | ~2019-02-09 | XMS | Encounter Summary ---
Demographics + + + | Address | [address] | | | [place] [address] | + + + | Home Phone | | + + + | Preferred Language | Unknown | + + + | Marital Status | | + + + | Yazidi Affiliation | 1028 | + + + | Race | Unknown | + + + | Ethnic Group | Unknown | + + + Author + + + | Author | [facility] | | | and [place] | + + + | Organization | [facility] | | | and [place] | + + + | Address | Unknown | + + + | Phone | Unavailable | + + + Support + + + + + | Name | Relationship | Address | Phone | + + + + + | Prashanth Vuong | ECON | [address] | | | | | [place] | | | | | [address] | | + + + + + Care Team Providers + +------+ + | Care Full Stack Software Developer Name | Role | Phone | + +------+ + | Farooq Wesley DO | PCP | | + +------+ + Reason for Visit + + + | Reason | Comments | + + + | Results, Imaging | | + + + Encounter Details +--------+ + + + + | Date | Type | Department | Care Team | Description | +--------+ + + + + | 01/15/ | Telephone | [facility] | Farooq Wesley | Results, Imaging | | 2018 | | [facility] | E, DO [address] | | | | | MEDICAL CLINIC [address] | [place], [place] | | | | | [address] [place], | [address] | | | | | [place] [address] | [phone] | | | | | [phone] | | | +--------+ + + + [...] [place] | | | | | | [address] | | | | | | [phone] | | | | | | | | +--------+---------+ + + + documented as of this encounter Visit Diagnoses Not on filedocumented in this encounter"
--- OUTSIDE RECORDS SUMMARY | ~2019-02-09 | XMS | Encounter Summary ---
Demographics + + + | Address | [address] | | | [place] [address] | + + + | Home Phone | | + + + | Preferred Language | Unknown | + + + | Marital Status | | + + + | Voodoo Affiliation | 1028 | + + + | Race | Unknown | + + + | Ethnic Group | Unknown | + + + Author + + + | Author | [facility] | | | and [place] | + + + | Organization | [facility] | | | and [place] | + + + | Address | Unknown | + + + | Phone | Unavailable | + + + Support + + + + + | Name | Relationship | Address | Phone | + + + + + | Prashanth Vuong | ECON | [address] | | | | | [place] | | | | | [address] | | + + + + + Care Team Providers + +------+ + | Care Landscape Laborer Name | Role | Phone | + [...] | Appointment | | 2019 | | [facility] | DISK AND TAPE MACHINE TENDER | | | | | MEDICAL CLINIC [address] | | | | | | [address] [place], | | | | | | [place] [address] | | | | | | [phone] | | | +--------+ + + + [...] [place] | | | | | | [address] | | | | | | [phone] | | | | | | | | +--------+---------+ + + + documented as of this encounter Visit Diagnoses Not on filedocumented in this encounter"
--- OUTSIDE RECORDS SUMMARY | ~2019-02-09 | XMS | Encounter Summary ---
Demographics + + + | Address | [address] | | | [place] [address] | + + + | Home Phone | | + + + | Preferred Language | Unknown | + + + | Marital Status | | + + + | Hinduism Affiliation | 1028 | + + + [...] + | Prashanth Vuong | ECON | [address] | | | | | [place] | | | | | [address] | | + + + + + Care Team Providers + +------+ + | Care Professional Athlete Name | Role | Phone | + +------+ + | Farooq Weslye DO | PCP | | + +------+ [...] trochanteric | | 2018 | Visit | [facility] | E, DO [address] | bursitis of left | | | | MEDICAL CLINIC [address] | [place], [place] | hip (Primary Dx); | | | | [address] [place], | [address] | Essential | | | | [place] [address] | [phone] | hypertension; | | | | [phone] | | Controlled type 2 | | [...] Vitamin D3 1,000-2,000 units daily -Go to [facility] in January while fasting for blood [...] complications and tolerated well. 0.50cc (40mg/1ml) TAC [facility] [address]-7 LOT [id number] EXP 04/11 and 1.0cc 1% lidocaine [facility] 35614-926-28 LOT [id number] EXP 09/11 injected into Left great troch #2 PARQ Lesion treated with LN, freeze thaw times 4 cycles Procedure no complications and tolerated well. Recommended Influenza, she declined today she will get it in [place]. Current Outpatient Prescriptions Medication Sig Dispense Refill [...] Procedure: EGD; Surgeon: Silvano Kaiser MD; Location: [facility] MEDICAL PROCEDURE UNIT UPPER GASTROINTESTINAL ENDOSCOPY N/A 02/03/2017 Procedure: EGD; Surgeon: Silvano Kaiser MD; Location: [facility] MEDICAL PROCEDURE UNIT Social History Social [...] Hives and Swelling Cefazolin Hives and Rash [place] Hives and Rash Review of Systems Constitutional: [...] accurately reflects the service I personally perfo [facility] and the decisions made by me. Dr. [...] [place] | | | | | | [address] | | | | | | [phone] | | | | | | | [...] + + | [facility] | [address] | [place] [address] | [phone] | | [facility] | | | [...] | mL/min/1.73m2 | [facility] | | | [facility] | RATE,ESTIMATED | | HOSP[facility] | | | | mL/min/1.77y5Ardq than | | REGIONAL | | | [...] + + | [facility] | [address] | [place] [address] | [phone] | | [facility] | | | [...]
--- OUTSIDE RECORDS SUMMARY | ~2019-02-09 | XMS | Encounter Summary ---
Demographics + + + | Address | [address] | | | [place] [address] | + + + | Home Phone | | + + + | Preferred Language | Unknown | + + + | Marital Status | | + + + | Adventist Affiliation | 1028 | + + + | Race | Unknown | + + + | Ethnic Group | Unknown | + + + Author + + + | Author | [facility] | | | and [place] | + + + | Organization | [facility] | | | and [place] | + + + | Address | Unknown | + + + | Phone | Unavailable | + + + Support + + + + + | Name | Relationship | Address | Phone | + + + + + | Prashanth Vuong | ECON | [address] | | | | | [place] | | | | | [address] | | + + + + + Care Team Providers + +------+ + | Care Cone Chocolate Dipper Name | Role | Phone | + [...] | +--------+ + + + + | 01/22/ | Telephone | [facility] | Maria G Burgess, CC | Results, Imaging | | 2018 | | [facility] | [facility] | | | | | MEDICAL CLINIC [address] | | | | | | [address] [facility], | | | | | | [place] [address] | | | | | | [phone] | | | +--------+ + + + [...] [place] | | | | | | [address] | | | | | | [phone] | | | | | | | | +--------+---------+ + + + documented as of this encounter Visit Diagnoses Not on filedocumented in this encounter"
--- OUTSIDE RECORDS SUMMARY | ~2019-02-09 | XMS | Clinical Summary ---
Demographics + + + | Address | [address] | | | [place] [address] | + + + | Home Phone | | + + + | Preferred Language | Unknown | + + + | Marital Status | | + + + | Evangelical Affiliation | 1028 | + + + | Race | Unknown | + + + | Ethnic Group | Unknown | + + + Author + + + | Author | [facility] [facility] (Historical as of | | | 11-06-18) | + + + | Organization | [facility] [employer] [employer] (Historical as of | | | 11-06-18) | + + + | Address | Unknown | + + + | Phone | Unavailable | + + + Support + + +---------+ + | Name | Relationship | Address | Phone | + + +---------+ + | Prashanth Casey | ECON | Unknown | | + + +---------+ + Care Team Providers + +------+ + | Care Solid Waste Collection Worker Name | Role | Phone | [...] Iodinated Diagnostic | Anaphylaxis | High | 09/14/20 | | | Agents | | | [...] + + + + + + | Keiser Extract | Hives | High | 09/14/20 [...] +------+-------+ + | MEDICARE | MEDICA | [id number] | | | [address] | | | [place] | | | | [place] [address] | | | IP-OP | | | | | + +--------+ +------+-------+ + | [employer]AN | ODS | [id number] | | | | | | HEALTH [...] | Self [birth year] Home: | [address] | | | al/Fam | | 1941 | [phone] | [place] | | | [place]ina | | | [phone] | [address] | + +--------+ +--------+ + +"
--- OUTSIDE RECORDS SUMMARY | ~2019-02-09 | XMS | Encounter Summary ---
Demographics + + + | Address | [address] | | | [place] [address] | + + + | Home Phone | | + + + | Preferred Language | Unknown | + + + | Marital Status | | + + + | Yazdanism Affiliation | 1028 | + + + | Race | Unknown | + + + | Ethnic Group | Unknown | + + + Author + + + | Author | [facility] | | | and [place] | + + + | Organization | [facility] | | | and [place] | + + + | Address | Unknown | + + + | Phone | Unavailable | + + + Support + + + + + | Name | Relationship | Address | Phone | + + + + + | Prashanth Vuong | ECON | [address] | | | | | [place] | | | | | [address] | | + + + + + Care Team Providers + +------+ + | Care Gas Flow Regulator Name | Role | Phone | + +------+ + PCP | Unavailable | + +------+ + Encounter Details +--------+ + + + + | Date | Type | Department | Care Team | Description | +--------+ + + + + | 03/13/ | Hospital | [facility] | Silvano Kaiser MD | | | 1997 | Encounter | MED CTR XRAY [address] | [address] | | | | | [place] | [address] [place] | | | | | [place] [address] | [address] | | | | | [phone] | | | +--------+ + + + [...] [place] | | | | | | [address] | | | | | | [phone] | | | | | | | | +--------+---------+ + + + documented as of this encounter Visit Diagnoses Not on filedocumented in this encounter"
--- OUTSIDE RECORDS SUMMARY | ~2019-02-09 | XMS | Encounter Summary ---
Demographics + + + | Address | [address] | | | [place] [address] | + + + | Home Phone | | + + + | Preferred Language | Unknown | + + + | Marital Status | | + + + | Zoroastrian Affiliation | 1028 | + + + | Race | Unknown | + + + | Ethnic Group | Unknown | + + + Author + + + | Author | [facility] | | | and [place] | + + + | Organization | [facility] | | | and [place] | + + + | Address | Unknown | + + + | Phone | Unavailable | + + + Support + + + + + | Name | Relationship | Address | Phone | + + + + + | Prashanth Vuong | ECON | [address] | | | | | [place] | | | | | [address] | | + + + + + Care Team Providers + +------+ + | Care Corporate Relations Manager Name | Role | Phone | [...] | | | | | [address] | [place], [place] | | | | | [place], [place] | [address] | | | | | [address] | | | | | | [phone] | | | +--------+ + + + [...] [address] | | eral | Antecubital; [id number] | Ruddy K | Hoang Cruz RN [...] [place] | | | | | | [address] | | | | | | [phone] | | | | | | | [...]
--- OUTSIDE RECORDS SUMMARY | ~2019-02-09 | XMS | Encounter Summary ---
Demographics + + + | Address | [address] | | | [place] [address] | + + + | Home Phone | | + + + | Preferred Language | Unknown | + + + | Marital Status | | + + + | Tenriism Affiliation | 1028 | + + + [...] + | Prashanth Vuong | ECON | [address] | | | | | [place] | | | | | [address] | | + + + + + Care Team Providers + +------+ + | Care Neurological Physiotherapist Name | Role | Phone | + [...] Description | +--------+--------+ + + + | 03/01/ | Refill | [facility]ENNE [facility] | Maria G Burgess M, CC | Medication Refill | | 2017 | | [facility] | [facility] | | | | | MEDICAL CL[facility] [address] | | | | | | [address] [facility], | | | | | | [place] [address] | | | | | | [phone] | | | +--------+--------+ + + + [...] [place] | | | | | | [address] | | | | | | [phone] | | | | | | | | +--------+---------+ + + + documented as of this encounter Visit Diagnoses Not on filedocumented in this encounter"
--- OUTSIDE RECORDS SUMMARY | ~2019-02-09 | XMS | Encounter Summary ---
Demographics + + + | Address | [address] | | | [place] [address] | + + + | Home Phone | | + + + | Preferred Language | Unknown | + + + | Marital Status | | + + + | Religion Affiliation | 1028 | + + + [...] + | Prashanth Vuong | ECON | [address] | | | | | [place] | | | | | [address] | | + + + + + Care Team Providers + +------+ + | Care Barrel Raiser Name | Role | Phone | + +------+ + | Farooq Wesley DO | PCP | | + +------+ + Encounter Details +--------+---------+ + + + | Date | Type | Department | Care Team | Description | +--------+---------+ + + + | 03/05/ | Surgery | [facility] | Silvano Kaiser MD | EGD | | 2016 | | MED CTR MP INTRA OP | [address] [place] | | | | | [address] | [address] [place], [place] | | | | | [place], [place] | [address] | | | | | [address] | | | | | | [phone] | | | +--------+---------+ + + + [...] | | | | | | | 0827-8757 MG-UNIT | | | | | | [...] [place] | | | | | | [address] | | | | | | [phone] | | | | | | | [...] + | [facility] | [address] | [place] | [phone] | | [facility] | | [address] | | | - LABORATORY | | | | + + + + + EGD (03/05/2016 10:42 AM BAMBI) + + | Specimen | + + | | + + + + -+ | Narrative | Performed At | + + -+ | | [facility] | | GastroenterologyPatient Name: Lita VuongProcedcorine Date: | PROVATION | | 03/05/2016 10:42 AMMRN: [id number] #: [id number] of | | | : 1940dmit Type: AmbulatoryAge: 75Room: [facility] 01Gender: | | | FemaleNote Status: [...] the nurse | | | and the sewing pattern layout technician in the endoscopy suite. Mental Status [...] Scope In: 11:03:43 AMScope Out: 11:12:37 AM [place] | | | [facility], [address] [place] [address] | | | [phone] | | | - Discharge patient to [...] |Scope Out: 11:12:37 AM | | | [facility], [address] [place] [address] | | | [address] | | + + -+ + +---------+ [...] ST. | [address] | [place] | [phone] | | [facility] | | [address] | | | - LABORATORY | | | | + + + + + Surgical Pathology Exam (03/05/2016 12:00 AM PST) + + | Specimen | + + | | + + + + + | Narrative | Performed At | + + + | SPECIMEN(S): A MID ESOPHAGEAL BIOPSY SPECIMEN [facility] | | ESOPHAGEAL BIOPSY CLINICAL HISTORY: [...] for increased epithelial eosinophils. | | | JVR:[facility]:C2NR GROSS DESCRIPTION: The specimen is labeled [...] | | slide preparation were performed by [facility] | | | [facility], [address], [place] [address] (Ingredient Scaler: Anthony Turner | | | Franko CLIA#: [id number]). Professional interpretation was performed | | | by [facility], [facility], [facility] | | | [facility], [place] [address] (Ingredient Scaler: Anthony | | | Franko Turner; CLIA#: [id number]). Diagnostician: Anthony Acosta | | | Yue [...]
--- OUTSIDE RECORDS SUMMARY | ~2019-02-09 | XMS | Encounter Summary ---
Demographics + + + | Address | [address] | | | [place] [address] | + + + | Home Phone | | + + + | Preferred Language | Unknown | + + + | Marital Status | | + + + | Methodist Affiliation | 1028 | + + + | Race | Unknown | + + + | Ethnic Group | Unknown | + + + Author + + + | Author | [facility] | | | and [place] | + + + | Organization | [facility] | | | and [place] | + + + | Address | Unknown | + + + | Phone | Unavailable | + + + Support + + + + + | Name | Relationship | Address | Phone | + + + + + | Prashanth Vuong | ECON | [address] | | | | | [place] | | | | | [address] | | + + + + + Care Team Providers + +------+ + | Care Android Framework Developer Name | Role | Phone | + +------+ + | Farooq Wesley DO | PCP | | + +------+ + Encounter Details +--------+ + + + + | Date | Type | Department | Care Team | Description | +--------+ + + + + | 04/23/ | Hospital | [facility] | Silvano Kaiser MD | 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 Ask your healthcare provider about hqzf-fdh-kxkfvrf andp rescription medicines that may help. Ask about surgery, if needed. Surgery is a treatment choice for some people. Your health care provider can determine if surgery is an option for you. Date Last Reviewed: 12/22/201519991161-3114 [employer]. [address] [place] [address]. All righ ts reserved. This information is [...] that are mashed or put through a flour blender. In addition, you may need to [...] to prevent complications. Work with your h [facility] provider to learn what you can do to protect your health. For more information, co ntact the [place] [employer],www.diabetes.org. Long-term concerns With treatment, most people can manage their symptoms and maintain their usual routines. If your symptoms are moderate to severe, you may need to see your healthcare provider more oft en for checkups. Also, other treatments will likely be needed. Date Last Reviewed: 10/04/201519998670-2384 [employer]. [address] [place], [place] [address] [address]. All [facility] ts reserved. This information is not [...] heart rate Chest pain Date Last Reviewed: 03/21/201519995675-0088 [employer]. [address] [place] [address]. All [facility] ts reserved. This information is not [...] [place] | | | | | | [address] | | | | | | [phone] | | | | | | | [...] | REFERENCE LAB | | [place] [phone] Rental Sales Representative: Jose Jones MD, Phone: | [facility] | | [phone] | | + + + + + + + + | Performing | Address | City/State/Zipcode | Phone Number | | Organization | | | | + + + + + | REFERENCE LAB | [address] | [place] [address] | [phone] | | [facility] | Drive [...] ST. | [address] | [place], [place] | [phone] | | [facility] | | [address] | | | - LABORATORY | | [...] [address] | [place] | [phone] | | [facility] | | [address] | | | - LABORATORY | | [...] [address] | [place] | [phone] | | [facility] | | [address] | | | - LABORATORY | | [...] | REFERENCE LAB | | [place] [phone] Rental Sales Representative: Jose Jones MD, Phone: | [facility] | | [phone] | | + + + + + + + + | Performing | Address | City/State/Zipcode | Phone Number | | Organization | | | | + + + + + | REFERENCE LAB | [address] | [place] [address] | [phone] | | [facility] | Drive [...] [address] | [place] | [phone] | | [facility] | | [address] | | | - LABORATORY | | [...] [address] | [place] | [phone] | | [facility] | | [address] | | | - LABORATORY | | [...] [place]. | [address] | [place] | [phone] | | [facility] | | [address] | | | - LABORATORY | | [...] | Negative for toxigenic | | [facility] | | | GDH Antigen | Clostridium [...] [address] | [place] | [phone] | | [facility] | | [address] | | | - LABORATORY | | [...] + | [facility] | [address] | [place] | [phone] | | [facility] | | [address] | | | - LABORATORY | | | | + + + + + EGD (04/23/2018 12:13 PM PST) + + | Specimen | + + | | + + + + -+ | Narrative | Performed At | + + -+ | | [facility] | | GastroenterologyPatient Name: Lita VuongProcedure Date: 04/23/2018 | PROVATION | | 12:13 PMMRN: [id number] #: [id number] of : | | | 1940dmit Type: AmbulatoryAge: 77Room: [facility] 01Gender: FemaleNote | | | Status: FinalizedAttending MD: Silvano Kaiser , [facility]cedure: | | | Upper GI endoscopyIndications: Esophageal | | | dysphagiaProviders: Silvano Kaiser MD, Jeanette Womack, | | | RN, Willow Vergara, Baggage Handler, Virgilio Grissom | | | MD Satish [...] the anesthesiologist and | | | the medical equipment repair technician in the endoscopy suite. Mental Status [...] PMScope Out: | | | 12:31:45 PM [facility], [address] | | | [place] [address] | | | - Discharge patient to [...] |Scope Out: 12:31:45 PM | | | [facility], [address] [facility], [place], [place] | | | [address] | | + + -+ + +---------+ [...] 04/23/2018 | [place]OVATION | | 12:12 PMMRN: [id number] #: [id number] of : | | | 1Admit Type: AmbulatoryAge: 77Room: [facility] 01Gender: FemaleNote | | | Status: FinalizedAttending MD: Silvano Kaiser , [facility]cedure: | | | ColonoscopyIndications: Chronic diarrheaProviders: | | | Silvano Kaiser MD, Jeanette Womack RN, Willow Vergara, | | | Baggage Handler, Virgilio Covarrubias MD (Anesthesia | | | [...] | | | PMScope Out: 1:03:32 PM [facility], [address] | | | [place] [address] | | | instructions were provided to [...] |Scope Out: 1:03:32 PM | | | [facility], [address] [facility], [place] | | | [address] | | + + -+ + +---------+ [...] | The technical component was performed by [facility], [address] | | | [facility] [place] [facility] [address] (Kilnman: Sharda Baxter MD; | | | CLIA# [id number]). Professional interpretation was performed by | | | [facility], [facility], [address] [place] [address] | | | [place] [address] (Kilnman: Grace Hill MD; | | | CLIA# [id number]). Diagnostician: Chip Chang MD | | | [...]
--- OUTSIDE RECORDS SUMMARY | ~2019-02-09 | XMS | Encounter Summary ---
Demographics + + + | Address | [address] | | | [place] [address] | + + + | Home Phone | | + + + | Preferred Language | Unknown | + + + | Marital Status | | + + + | Jehovah'S Witness Affiliation | 1028 | + + + | Race | Unknown | + + + | Ethnic Group | Unknown | + + + Author + + + | Author | [facility] | | | and [place] | + + + | Organization | [facility] | | | and [place] | + + + | Address | Unknown | + + + | Phone | Unavailable | + + + Support + + + + + | Name | Relationship | Address | Phone | + + + + + | Prashanth Vuong | ECON | [address] | | | | | [place] | | | | | [address] | | + + + + + Care Team Providers + +------+ + | Care Aircraft Assembler Name | Role | Phone | + +------+ + | Farooq Wesley DO | PCP | | + +------+ + Reason for Visit + + + | Reason | Comments | + + + | Results, Pathology | | + + + Encounter Details +--------+ + + + + | Date | Type | Department | Care Team | Description | +--------+ + + + + | 05/18/ | [facility] | [facility] | Curt Sandoval, | Results, Pathology | | 2012 | | GASTROENTEROLOGY | MD [address] [place] | | | | | [address] [place] | [address] [place], | | | | | [address] [place], [place] | [place] [address] | | | | | [address] | [phone] | | | | | [phone] | | | +--------+ + + + [...] [place] | | | | | | [address] | | | | | | [phone] | | | | | | | | +--------+---------+ + + + documented as of this encounter Visit Diagnoses Not on filedocumented in this encounter"
--- OUTSIDE RECORDS SUMMARY | ~2019-02-09 | XMS | Encounter Summary ---
Demographics + + + | Address | [address] | | | [place] [address] | + + + | Home Phone [...] + | Prashanth Vuong | ECON | [address] | | | | | [place] | | | | | [address] | | + + + + + Care Team Providers + +------+ + | Care Medical Administrative Technician Name | Role | Phone | + +------+ + PCP | Unavailable | + +------+ + Encounter Details +--------+ + + + + | Date | Type | Department | Care Team | Description | +--------+ + + + + | 08/14/ | Hospital | [facility] | Silvano Kaiser MD | | | 2010 | Encounter | MED CTR MP INTRA OP | [address] [place] | | | | | [address] | [address] [place], [place] | | | | | [place], [place] | [address] | | | | | [address] | | | | | | [phone] | | | +--------+ + + + [...] 2018 | Visit | | [place], [address] | | | | | | [place] | | | | | | [address] | | | | | | [phone] | | | | | | | | +--------+---------+ + + + documented as of this encounter Procedures + +--------+ + + + | Procedure Name | Priori | Date/Time | Associated Diagnosis | Comments | | | ty | | | | + +--------+ + + + | HELICOBACTER PYLORI | Routin | 08/14/2010 | | Results for this | | BIOPSY | e | 3:06 PM | | procedure are in the | | | | PDT | | results section. | + +--------+ + + + documented in this encounter Results Helicobactor pylori Biopsy (08/14/2010 3:06 PM PDT) + + + + + + | Component | Value | Ref Range | Performed | Pathologist | | | | | At | Signature | + + + + + + | GASTRIC | Negative for Urease | | [facility] | | | BIOPSY | | | [facility] | | | UREASE TEST | | | MEDICAL | | | [...] + | [facility] | [address] | [place], [place] | [phone] | | [facility] | | [address] | | | - LABORATORY | | | | + + + + + | [facility] | [address] | [place], [place] | | | [facility] | | [address] | | | - LABORATORY | | | | + + + + + documented in this encounter Visit Diagnoses Not on filedocumented in this encounter"
--- OUTSIDE RECORDS SUMMARY | ~2019-02-09 | XMS | Encounter Summary ---
Demographics + + + | Address | [address] | | | [place] [address] | + + + | Home Phone | | + + + | Preferred Language | Unknown | + + + | Marital Status | Single | + + + | Spiritism Affiliation | Unknown | + + + | Race | Unknown | + + + | Ethnic Group | Other Race | + + + Author + + + | Author | [facility] | + + + | Organization | [facility] | + + + | Address | Unknown | + + + | Phone | Unavailable | + + + Support + + +---------+ + | Name | Relationship | Address | Phone | + + +---------+ + | None None | ECON | Unknown | Unavailable | + + +---------+ + Care Team Providers + +------+ + | Care Industrial Gas Servicer Supervisor Name | Role | Phone | [...] | | DO Farooq | [address] | | | | | | [address] | [place] | | | | | | [place], | Mailcode: | | | | | | [place] | [address] [place] | | | | | | [address] | for [facility] | | | | | | Phone: | and Healing, | | | | | | [phone] | [address], | | | | | | Fax: | 15th Floor | | | | | | [phone] | [place], [place] | | | | | | | [address] | | | | | | | Phone: | | | | | | | [phone] | | | | | | | Fax: | | | | | | | [phone] | +--------+--------+ + + + + Encounter Details +--------+---------+ + + + | Date | Type | Department | Care Team | Description | +--------+---------+ + + + | 01/06/ | Office | [facility] | Elva Parekh, | Dysphonia; | | 2011 | Visit | [facility] | [facility] [address] | Dysphagia, | | | | Swallowing at [facility] | [address] | pharyngeal phase; | | | | [address] | [place] [address] | Unilateral complete | | | | Mailcode: [facility] | [phone] | paralysis of vocal | | | | [facility] | | cords or larynx | | | | and Healing, | | | | | | | | | | | | Floor [place], [place] | | | | | | [address] | | | | | | [phone] | | | +--------+---------+ + + + [...] of this encounter Progress Notes Elva Parekh CCC-CLINICAL PRODUCT SPECIALIST - 01/08/2012 8:08 AM PDT VOICE EVALUATION CLINIC: [facility] CL[facility]IC DATE: 01/07/2012 [...] REFERRAL: Lita Vuong was referred to the [facility] by Dr. Farooq [...] and GERD. SINGING: The patient enjoys recreational druze singing, but is currently unable to sing [...] The patient's speech intelligibility was approximately 100%. [facility] Consensus Auditory-Perceptual Evaluation of Voice (CAPE-V) was [...] laryngeal function studies were completed using the [facility] with a hand- held microphone with a [...] his plan of care. Elva Parekh M.S., [facility] Speech-Language Pathologist [facility] Department of Otolaryngology [facility] [place] [address] Appointments: documented in this encounter Plan of Treatment Not on filedocumented as of this encounter Procedures + +--------+ + + + | Procedure Name | Priori | Date/Time | Associated Diagnosis | Comments | | | ty | | | | + +--------+ + + + | RI LARYNGEAL | Routin | 01/08/2012 | Dysphonia | | | FUNCTION STUDIES | e | 8:08 AM | Unilateral complete | | | | | PDT | paralysis of vocal | | | | | | cords or larynx | | + +--------+ + + + | RI SPEECH & HEARING | Routin | 01/08/2012 | Dysphonia | | | EVALUATION | e | 8:08 AM | Unilateral complete | | | | | PDT | paralysis of vocal | | | | | | cords or larynx | | + +--------+ + + + | RI | Routin | 01/08/2012 | Dysphonia | [...]
--- OUTSIDE RECORDS SUMMARY | ~2019-02-09 | XMS | Encounter Summary ---
Demographics + + + | Address | [address] | | | [place] [address] | + + + | Home Phone [...] + | Prashanth Vuong | ECON | [address] | | | | | [place] | | | | | [address] | | + + + + + Care Team Providers + +------+ + | Care Single Pass Soil Stabilizer Operator Name | Role | Phone | [...] + + | 05/18/ | Telephone | [facility] | Curt Sandoval, | Results, Pathology | | 2012 | | GASTROENTEROLOGY | MD [address] [place] | | | | | [address] [place] | [address] [place], | | | | | [address] [place], [place] | [place] [address] | | | | | [address] | [phone] | | | | | [phone] | | | +--------+ + + + [...] [place] | | | | | | [address] | | | | | | [phone] | | | | | | | | +--------+---------+ + + + documented as of this encounter Visit Diagnoses Not on filedocumented in this encounter"
--- OUTSIDE RECORDS SUMMARY | ~2019-02-09 | XMS | Encounter Summary ---
Demographics + + + | Address | [address] | | | [place] [address] | + + + | Home Phone | | + + + | Preferred Language | Unknown | + + + | Marital Status | | + + + | Uatsdin Affiliation | 1028 | + + + | Race | Unknown | + + + | Ethnic Group | Unknown | + + + Author + + + | Author | [facility] | | | and [place] | + + + | Organization | [facility] | | | and [place] | + + + | Address | Unknown | + + + | Phone | Unavailable | + + + Support + + + + + | Name | Relationship | Address | Phone | + + + + + | Prashanth Vuong | ECON | [address] | | | | | [place] | | | | | [address] | | + + + + + Care Team Providers + +------+ + | Care Wafer Polishing Lead Worker Name | Role | Phone | [...] | Specialty | Gastroenterol | Diagnoses | Maryjane, | Job, | | | Services | ogy | Esophageal | Farooq Rose, | Silvano Rose MD | | | Required | | dysphagia | DO [address] | [address], | | | | | [address] | [address] | | | | | ring | [place], [place] | [place], | | | | | | [address] | [place] [address] | | | | | | Phone: | Phone: | | | | | | [phone] | [phone] | | | | | | Fax: | Fax: | | | | | | [phone] | [phone] | +--------+ + + + + + Reason for Visit + + + | Reason | Comments | + + + | Hospital Follow-up | Seen in ED for possible heart attack pt reports seen 1.5 weeks | | | ago and its esophagus acting up. "Esophageal spams" | + + + Encounter Details +--------+---------+ + + + | Date | Type | Department | Care Team | Description | +--------+---------+ + + + | 03/10/ | Office | [place] [facility] | Farooq Wesley | Esophageal dysphagia | | 2018 | Visit | [facility] | E, DO [address] | (Primary Dx); | | | | [facility] | [place], [place] | [address]; | | | | [address] [place], | [address] | Chest pain, | | | | [place] [address] | [phone] | unspecified type; | | | | [phone] | | Trochanteric | | | | | | bursitis of left hip | +--------+---------+ + + + Social History [...] + + + | Blood Pressure | 162/70 | 03/10/2018 2:56 PM | | | | | PST | | + + + + + | Pulse | 62 | 03/10/2018 2:56 PM | | | | | PST | | + + + + + | Temperature | - | - | | + + + + + | Respiratory Rate | 16 | 03/10/2018 2:56 PM | | | | | PST | | + + + + + | Oxygen Saturation | 97% | 03/10/2018 2:56 PM | | | | | PST | | + + + + + | Inhaled Oxygen | - | - | | | Concentration | | | | + + + + + | Weight | 74.8 kg (164 lb 12.8 | 03/10/2018 2:56 PM | | | | oz) | PST | | + + + + + | Height | 153.7 cm (5' 0.5") | 03/10/2018 2:56 PM | | | | | PST | | + + + + + | Body Mass Index | 31.66 | 03/10/2018 2:56 PM | | | | | PST | | + + + + + documented in this encounter Progress Notes Maria G Burgess CC CMA - 03/10/2018 3:00 PM Edilia Vuong presents today with [facility] Complaint of: Seen in ED for possible heart attack pt reports seen 1.5 weeks ago and its esophagus acting up. "Esophageal spasm". Current medications verified with her at time of visit. Pt currently shows no s/s of distress, shortness of breath. Vital signs: BP 162/70 | Pulse 62 | Resp 16 | Ht 1.537 m (5' 0.5") | Wt 74.8 kg (164 lb 12.8 oz) | SpO2 97% | ? No | BMI 31.66 kg/m Labs Obtained per protocol: POCT Urinalysis. Verbal Report given to: DO. Maria G Jones CC CMA Farooq Johnson DO - 03/10/2018 3:00 PM PST Patient ID: Lita Vuong is a 77 y.o. year old female Chief Complaint: Chief Complaint Patient presents with Hospital Follow-up Seen in ED for possible heart attack pt reports seen 1.5 weeks ago and its esophagus acti ng up. "Esophageal spams" Assessment Esophageal dysphagia (Primary) - AMB REFERRAL TO [facility] Lex[facility] ring - AMB REFERRAL TO [facility] Chest pain, unspecified type - Nitroglycerin; Place 1 tablet under the tongue every 5 minutes as needed. Dispense: 25 tablet; Refill: 11 Trochanteric bursitis of left hip - Lidocaine HCl; 4 mLs by Other route once. - Triamcinolone Acetonide; Inject 1 mL into the articular space once. Plan -Use Nitroglycerin as directed when needed -We will contact [facility] regarding stress test -Referral to Dr. Kaiser in [place] 30 minute visit with > 50% time spent in counseling regarding Nitro use, recent ER visits, and referral needed. Subjective: HARMAN London presents to the clinic today for a follow up from a recent ED visit, and discuss eso phogeal spasms. At 2 am when she was going to bed, she felt pressure. It was a new feeling, she has not had before. The pressure went down, it would go away, then come back. She didn't have any Nitro on hand. The pain consisted until 4 am. She never got sweaty or clammy. Then she went to [facility] ER. When she got to the ER she told them it was not pain just chest was heavy. They comple natalie an EKG and blood work. Everything was normal. She was supposed to do a stress test, but it was broken so she was not able to complete it. Since the ER visit on 02/25/2018, she has felt okay. While she was eating a elk heart, with the second bite it got stuck. She headed to the ER, and before she got there the piece of meat unstuck its self. She has a little trouble breathing. She was reading that when the weather is cold and house is dry, you need moister in the air for breathing. Her sleep is okay, she does stay up late reading. Her energy is okay, it is a little less then normal. She would like to get into the gym aga in. Over the hunting season she got a little depressed. She was home a lot while everyone wa s hunting. She is wondering when she can get another hip injection. Her last one was 12/08/2017 in the greater troc of left hip. The pain has recently came back. PARQ Sterile technique No complications and tolerated well. 1.0cc (40mg/1ml) [facility] [address]-2 LOT [id number] EXP 04/11 and 4.0cc 1% lidocaine [facility] 50463-092-77 LOT [id number] EXP 06/10 injected into Left great troch Current Outpatient Prescriptions Medication Sig Dispense Refill [...] mouth Daily. 90 tablet 3 losartan-hydrochlorothiazide (HYZAAR) 100-25 MG per tablet TAKE ONE TABLET BY MOUTH RYLIE DAY 90 tablet 3 metoprolol succinate (TOPROL-XL) 25 [...] of left hip Chest pain Schatzki's ring Family History Problem Relation Age of Onset [...] Procedure: EGD; Surgeon: Silvano Kaiser MD; Location: [facility] UPPER GASTROINTESTINAL ENDOSCOPY N/A 02/03/2017 Procedure: EGD; Surgeon: Silvano Kaiser MD; Location: [facility] Social History Social History [...] Hives and Swelling Cefazolin Hives and Rash Liberty Hives and Rash Review of Systems Constitutional: Negative for fatigue and fever. Respiratory: Negative for cough, chest tightness, shortness of breath and wheezing. Trouble breathing with cold weather Cardiovascular: Negative for chest pain and palpitations. Gastrointestinal: Negative for abdominal pain, nausea and vomiting. Musculoskeletal: Negative for gait problem and myalgias. Left hip pain Neurological: Negative for dizziness, syncope and headaches. Psychiatric/Behavioral: The patient is not nervous/anxious. Objective: Vitals: BP 162/70 | Pulse 62 | Resp 16 | Ht 1.537 m (5' 0.5") | Wt 74.8 kg (164 lb 12.8 oz) | SpO2 97% | ? No | BMI 31.66 kg/m Physical Exam Constitutional: She appears well-developed and well-nourished. HENT: Head: Atraumatic. Eyes: Pupils are equal, round, and reactive to light. EOM are normal. Cardiovascular: Normal rate, regular rhythm and normal heart sounds. Pulmonary/Chest: Effort normal and breath sounds normal. Musculoskeletal: Pain with palpation to the greater trochanteric left hip Neurological: She is alert. Psychiatric: She has a normal mood and affect. Entered by Brian Coronado, acting as scribe for Dr. Maryjane DO. The documentation recorded by the scribe accurately reflects the service I personally perfo rmed and the decisions made by me. Dr. Farooq Wesley DO. 03/10/2018 15:58Electronically signed by DO diomedes Forbes t 03/10/2018 4:08 PM PSTdocumented in this encounter Plan of [...] [place] | | | | | | [address] | | | | | | [phone] | | | | | | | | +--------+---------+ + + + + + +--------+ + + | Name | Type | Priori | Associated Diagnoses | Order Schedule | | | | ty | | | + + +--------+ + + | * [facility] | Outpatient | Routin | Esophageal | Ordered: 03/10/2018 | | Gastroenterology - | Referral | e | dysphagia | | | AMB Referral | | | Lex's ring | | + + +--------+ + + documented as of this encounter Visit Diagnoses + + | Diagnosis | + + | Esophageal dysphagia - Primary Dysphagia, pharyngoesophageal phase | + + | Lex's ring Congenital tracheoesophageal fistula, esophageal atresia and stenosis | + + | Chest pain, unspecified type | + + | Trochanteric bursitis of left hip Enthesopathy of hip region | + + documented in this encounter Administered Medications + +--------+ +-------+------+ + | Medication Order | MAR | Action | Dose | Rate | Site | | | Action | Date | | | | + +--------+ +-------+------+ + | lidocaine 1% injection 4 mL 4 | Given | 03/10/20 | 4 mLs | | Hip-Left | | mL, Other, ONCE, Thu03/10/18 at | | 18 3:57 | | | | | 1615, For 1 dose | | PM PST | | | | + +--------+ +-------+------+ + +---+---+ | | | +---+---+ + +-------+ +-------+---+ + | triamcinolone acetonide | Given | 03/10/20 | 40 mg | | Hip-Left | | (KENALOG-40) 40 mg/mL injection | | 18 3:57 | | | | | 40 mg 40 mg, Intra-articular, | | PM PST | | | | | ONCE, Thu03/10/18 at 1615, For 1 | | | | | | | dose, Shake well. Not for IV | | | | | | | use., | | | | | | + +-------+ +-------+---+ + +---+---+ | | | +---+---+ documented in this encounter
--- OUTSIDE RECORDS SUMMARY | ~2019-02-09 | XMS | Clinical Summary ---
Demographics + + + | Address | [address] | | | [place] [address] | + + + | Home Phone | | + + + | Preferred Language | Unknown | + + + | Marital Status | | + + + | Pentecostal Affiliation | 1028 | + + + [...] + | Prashanth Vuong | ECON | [address] | | | | | [place] | | | | | [address] | | + + + + + Care Team Providers + +------+ + | Care Telehealth Coordinator Name | Role | Phone | [...] + + + + + + | [place] | Hives, Rash | Low | 03/04/20 [...] 0 | | | Activ | | (VENTOLIN HFA) 90 | the lungs every 6 | | | | | e | | mcg/puff inhaler | hours as needed for | | | | | | | | Wheezing. | | | | | | + + + +---------+------+------+-------+ | levothyroxine | Take 1 tablet by | 90 | 3 | 12/1 | | Activ | | (SYNTHROID) 75 MCG | mouth Daily. | tablet | | 0/20 | | e | | tablet | | | | 18 | | | + + + +---------+------+------+-------+ [...] tongue every 5 | tablet | | 9/20 | | e | | SL | minutes as needed. | | | 18 | | | | tabletIndications: | | | | | | | | Chest pain, | | | | | | | | unspecified type | | | | | | | + + + +---------+------+------+-------+ | | Take 1 tablet by | 90 | 3 | 05/2 | | Activ | | losartan-hydrochloro | mouth Daily. | tablet | | 11/09 | | e | | thiazide (HYZAAR) | | | | 19 | | | | 50-12.5 MG per | | | | | | | | tabletIndications: | | | | | | | | Essential | | | | | | | | hypertension, benign | | | | | | | + + + +---------+------+------+-------+ | ACCU-CHEK [place] | Check blood sugars | 100 | 6 | 07/ | | Activ | | PLUS | 1-2 times a day | each | | 07/10 | | e | | stripIndications: | | | | 19 | | | | Diabetes mellitus | | | | | | | | without complication | | | | | | | | (JUAN) | | | | | | | + + + +---------+------+------+-------+ | meloxicam (MOBIC) | | | 0 | 08/2 | | Activ | | 15 mg tablet | | | | 11/09 | | e | | | | | | 19 | | | + + + +---------+------+------+-------+ Active Problems + + + | Problem | Noted Date | + + + | Nocturia | [...] | Retinal ischemia | | + +---+ | Stroke syndrome | | + +---+ Resolved Problems + [...] + + | 02/04/ | Telephone | Primary Care | Maria G Burgess CC | Appointment | | 2019 | | | YOUTH DEVELOPMENT SPECIALIST | | +--------+ + + + + | 12/24/ | Telephone | Primary Care | Farooq Wesley | Medication Problem | | 2018 | | | E, DO | | +--------+ + + + + | 12/23/ | Office | Primary Care | Ward, | Dog bite of hand, | | 2018 | Visit | | FLORES Odom | right, initial | | | | | | encounter (Primary | | | | | | Dx); Cellulitis of | | | | | | hand, right | +--------+ + + + + | 11/24/ | Telephone | Primary Care | Farooq Wesley | Diabetes Mellitus | | 2018 | | | E, DO | Management | +--------+ + + + + from Last 3 Months Immunizations + + + + | Name | Administration Dates | Next Due | + + + + | INFLUENZA 65 Y OR >, | 01/04/2018, 01/07/2017, 12/10/2015, | | | TRIVALENT HIGH-DOSE | 01/11/2015, 01/02/2013, 02/03/2012, | | | | 12/04/2009 | | + + + + | INFLUENZA PF 65 Y OR | 01/04/2015 | | | >,TRIVALENT (FLUAD) | | | + + + + | INFLUENZA, [id number], | 03/15/2009 | | | INACTIVATED | [...] Comments | + + +------+ + | Breast cancer | Maternal | | | | | Aunt | | | + + +------+ + | Other (see comment) | Mother | | osteoporosis | + + +------+ + | Diabetes [...] Comments | + +------+ + + | Father | | | | + +------+ + + | Maternal Aunt | | | | + +------+ + + | Mother | | | | + +------+ + + | Paternal Grandfather | | | | + +------+ + + | Paternal Grandmother | | | | + +------+ + + Social [...] [place] | | | | | | [address] | | | | | | [phone] | | | | | | | | +--------+---------+ + + + + + + + + | Health Maintenance | Due Date | Last Done | Comments | + + + + + | Breast Cancer | | | | | Screening | 6 | | | + + + + + | Vaccine: Zoster (2 | | 03/29/2010 | | | of 3) | 1 | | | + + + + + | Adult Annual | | | | | Wellness Visit | 5 | | | + + + + + | Vaccine: Influenza | | 01/04/2018, 01/07/2017, | | | (#1) | 9 | 12/18/2015, Additional history | | | | | exists | | + + + + + | Primary Care | | 12/23/2018, 10/13/2018, | | | Outreach (Intense | 0 | 09/28/2018, Additional history | | | Risk) | | exists | | + + + + + | Hemoglobin A1c | | 02/07/2019, 08/17/2018, | | | Screening | 0 | 01/19/2018, Additional history | | | | | exists | | + + + + + | Diabetic Foot Exam | | 08/25/2018 | | | | 0 | | | + + + + + | Diabetic Eye Exam | | 01/05/2018 | | | | 0 | | | + + + + + | Vaccine: | | 12/10/2015 | | | Dtap/Tdap/Td (2 - | 6 | | | | Td) | | | | + + + + + | Vaccine: | Completed | 01/07/2016, 03/01/2014 | | | Pneumococcal 65+ | | | | + + + + + Procedures + +--------+ + + + | Procedure Name | Priori | Date/Time | Associated Diagnosis | Comments | | | ty | | | | + +--------+ + + + | MICROALBUMIN, URINE, | Routin | 02/07/2019 | | Results for this | | RANDOM | e | 10:13 AM | | procedure are in the | | | | PST | | results section. | + +--------+ + + + | HEMOGLOBIN A1C | Routin | 02/07/2019 | Controlled type 2 | Results for this | | | e | 10:13 AM | diabetes mellitus | procedure are in the | | | | PST | without | results section. | | | | | complication, | | | | | | without long-term | | | | | | current use of | | | | | | insulin (HCC) | | + +--------+ + + + | CULTURE, WOUND, | Routin | 12/23/2018 | Dog bite of hand, | Results for this | | SMEAR | e | 10:38 AM | right, initial | procedure are in the | | | | PDT | encounter | results section. | + +--------+ + + + from Last 3 Months Results Microalbumin, Urine, Random (02/07/2019 10:13 AM PST) + + + + + + | Component | Value | Ref Range | Performed | Pathologist | | | | | At | Signature | + + + + + + | Microalbumi | <0.7 | 0.0 - 2.0 | REFERENCE | | | n, Urine | | | LAB | | | | | | [facility] | | + + + + + + | CREATININE, | 43.08 | | REFERENCE | | | QN,UR | | | LAB | | | | | | [facility] | | + + + + + + | Microalb | Comment: Microalbumin | 0 - 30 | REFERENCE | | | Creat Ratio | Calculation is invalid | | LAB | | | | when Microalbumin | | [facility] | | | | (mg/dl) is less than 0.7 | | | | | | mg/dl | | | | | | | | | | + + + + + + + + | Specimen | + + | | + + + + + | Narrative | Performed At | + + + | Testing Performed at: [facility] CLIA: [id number] [address] | REFERENCE LAB | | [place] [address] | [facility] | + + + + + + + + | Performing | Address | City/State/Zipcode | Phone Number | | Organization | | | | + + + + + | REFERENCE LAB | [address] | [place] [address] | [phone] | | [facility] | | | | + + + + + Hemoglobin A1C (02/07/2019 10:13 AM PST) + + + + + + | Component | Value | Ref Range | Performed | Pathologist | | | | | At | Signature | + + + + + + | Hemoglobin | 6.1 | | REFERENCE | | | A1c | | | LAB | | | | | | [facility] | | + + + + + + | Estimated | 128Comment: | | REFERENCE | | | Average | Reference Range for | | LAB | | | Glucose | HEMOGLOBIN A1c: | | [facility] | | | | Non-Diabetic | | | | | | <5.7% | | | | | | Increased Risk for | | | | | | Diabetes 5.7% - 6.4% | | | | | | Diagnostic for | | | | | | Diabetes >6.4 | | | | | | Diabetic Goal | | | | | | <7.0%These | | | | | | values are for | | | | | | non- individuals | | | | | | according to the | | | | | | [place] [employer] | | | | | | Association. 'Diabetes | | | | | | Care. | | | | | | 2009;33(suppl):S15-S61.' | | | | | | Hb A1C results may be | | | | | | falsely decreased in the | | | | | | presence of conditions | | | | | | that shorten red cell | | | | | | survival such as the | | | | | | presence of unstable | | | | | | hemoglobins or hemolytic | | | | | | anemia. Results may be | | | | | | falsely elevated in the | | | | | | presence of Iron | | | | | | deficiency anemia. | | | | + + + + + + + + | Specimen | + + | Blood | + + + + + | Narrative | Performed At | + + + | Testing Performed at: [facility] CLIA: [id number] - [address] | REFERENCE LAB | | [place] [address] | [facility] | + + + + + + + + | Performing | Address | City/State/Zipcode | Phone Number | | Organization | | | | + + + + + | REFERENCE LAB | [address] | [place] [address] | [phone] | | [facility] | | | | + + + + + Culture, Wound, Smear (12/23/2018 10:38 AM PDT) + + + + + + | Component | Value | Ref Range | Performed | Pathologist | | | | | At | Signature | + + + + + + | Culture | No Growth at 2 days. | | [place] | | | | | [...] + + + | [facility] | [address] | [place] [address] | [phone] | | [facility] | | | | + + + + + from Last 3 Months Insurance + +--------+ +--------+ [...] + +--------+ | MEDICARE | MEDICA | [id number] | 05/22/19 | [phone] | | Medica | | | RE | | 06-Pre | 5 | | re | | | PART A | | sent | | | | | | AND B | | | | | | + +--------+ +--------+ + +--------+ | MEDICARE | MEDICA | [id number] | 05/22/19 | [phone] | | Medica | | | RE | | 06-Pre | 5 | | re | | | PART A | | sent | | | | | | AND B | | | | | | + +--------+ +--------+ + +--------+ | MODA | MODA | [id number] | 05/22/19 | [phone] | [address] | Indemn | | | HEALTH | | 08-Pre | 9 | [address] | ity | | | MDCR | | sent | | [place], | | | | [place] | | | | [place] [address] | | + +--------+ +--------+ + +--------+ | MODA | MODA | [id number] | 03/23/19 | [phone] | [address] | Indemn | | | HEALTH | | 17-Pre | 9 | [address] | ity | | | MDCR | | sent | | [place], | | | | [place] | | | | [place] [address] | | + +--------+ +--------+ + +--------+ + +--------+ +--------+ + + | Guarantor Name | Accoun | Relation to | Date | Phone | Billing Address | | | t Type | Patient | of | | | | | | | | | | + +--------+ +--------+ + + | Lita Vuong | Person | Self [birth year] | [address] | | | al/Fam | | 1941 | [phone] | [place], [place] | | | [place] | | | 3 (Home) | [address] | + +--------+ +--------+ + + | Lita Vuong | Person | Self | [birth year] | | [address] | | | al/Fam | | 1941 | [phone] | [address] [place], [place] | | | [place] | | | 3 (Home) | [address] | + +--------+ +--------+ + + | Lita Vuong | Third | Self | [birth year] | | [address] | | | Libertarian | | 1941 | [phone] | [address] [place] | | | Jam | | | 3 (Means) | [address] | | | pauly | | | | | + +--------+ +--------+ + + Advance Directives + + + + + | Type | Date Recorded | Patient | Explanation | | | | Apple Peeler Operator | | + + + + + | Power of | | | | | Casing Splitter | | | | + + + + + | Advance | 03/05/2016 | | | | Directive | 8:17 AM | | | + + + + +
--- OUTSIDE RECORDS SUMMARY | ~2019-02-09 | XMS | Encounter Summary ---
Demographics + + + | Address | [address] | | | [place] [address] | + + + | Home Phone [...] + | Prashanth Vuong | ECON | [address] | | | | | [place] | | | | | [address] | | + + + + + Care Team Providers + +------+ + | Care Washer Engineer Name | Role | Phone | + +------+ + | Farooq Wesley DO | PCP | | + +------+ + Encounter Details +--------+ + + + + | Date | Type | Department | Care Team | Description | +--------+ + + + + | 02/23/ | Abstract | [facility] | Silvano Kaiser MD | | | 2016 | | GASTROENTEROLOGY | [address], [place] | | | | | [address] [place] | [address] [place], [place] | | | | | [address] [place], [place] | [address] | | | | | [address] | | | | | | [phone] | | | +--------+ + + + [...] + + + | Blood Pressure | - | - | | + + + + + | Pulse | - | - | | + [...] | 72.7 kg (160 lb 3.2 | 02/23/2017 3:27 PM | | | | oz) | PST | | + + + + + | Height | 153.7 cm (5' 0.5") | 02/23/2017 3:27 PM | | | | | PST | | + + + + + | Body Mass Index | 30.77 | 02/23/2017 3:27 PM | | | | | PST [...] | | | | | | [place] | | | | | | [address] | | | | | | [phone] | | | | | | | | +--------+---------+ + + + documented as of this encounter Visit Diagnoses Not on filedocumented in this encounter
--- OUTSIDE RECORDS SUMMARY | ~2019-02-09 | XMS | Encounter Summary ---
Demographics + + + | Address | [address] | | | [place] [address] | + + + | Home Phone [...] + | Prashatnh Vuong | ECON | [address] | | | | | [place] | | | | | [address] | | + + + + + Care Team Providers + +------+ + | Care Electrical & Instrumentation Supervisor Name | Role | Phone | [...] | | | | [place], [place] | [address] | Diarrhea, | | | | [address] | [phone] | unspecified type | | | | [phone] | | | +--------+ + + + [...] [place] | | | | | | [address] | | | | | | [phone] | | | | | | | [...]
--- OUTSIDE RECORDS SUMMARY | ~2019-02-09 | XMS | Encounter Summary ---
Demographics + + + | Address | [address] | | | [place] [address] | + + + | Home Phone | | + + + | Preferred Language | Unknown | + + + | Marital Status | | + + + | Religion Affiliation | 1028 | + + + | Race | Unknown | + + + | Ethnic Group | Unknown | + + + Author + + + | Author | [facility] | | | and [place] | + + + | Organization | [facility] | | | and [place] | + + + | Address | Unknown | + + + | Phone | Unavailable | + + + Support + + + + + | Name | Relationship | Address | Phone | + + + + + | Prashanth Vuong | ECON | [address] | | | | | [place] | | | | | [address] | | + + + + + Care Team Providers + +------+ + | Care Radioactivity Technician Name | Role | Phone | + +------+ + | Farooq Wesley DO | PCP | | + +------+ + Encounter Details +--------+ + + + + | Date | Type | Department | Care Team | Description | +--------+ + + + + | 12/04/ | Hospital | [facility] | Damari Pike, | Essential | | 2016 | Encounter | CENTER OUTPATIENT | MD Esvin Barber | hypertension, | | | | WOUND CARE [address] | [place] [address] | hypertension with | | | | [address] [place], [place] | [place] [address] | unspecified goal; | | | | [address] | [phone] | Other specified | | | | [phone] | | hypothyroidism; | | | | | | Diabetes mellitus | | | | | | type 2, controlled | | | | | | ([facility]); Scar | +--------+ + + + + Social [...] | Blood Pressure | 168/80 | 12/05/2015 8:24 AM | | | | | PDT | | + + + + + | Pulse | 67 | 12/05/2015 8:24 AM | | | | | PDT | | + + + + + | Temperature | 36.6 C (97.8 F) | 12/05/2015 8:24 AM | | | | | PDT | | + + + + + | Respiratory Rate | 16 | 12/05/2015 8:24 AM | | | | | PDT [...] | | | | | | | 3606-0849 MG-UNIT | | | | | | [...] + + + +---------+ + + | carbamide peroxide | Place 5 drops into | | 0 | | | | (DEBROX) 6.5% otic | both ears as needed. | | | | 6 | | solution | | | | | | + + + +---------+ + + | cyclobenzaprine | Take 5 mg by mouth | | 0 | | | | (FLEXERIL) 5 MG | nightly as needed. | | | | 8 | | tablet | | | | | | + + + +---------+ + + | Diclofenac Sodium | Apply 1 % topically. | | 0 | | | | (VOLTAREN EX) | | | | | 6 | + + + +---------+ + + | Esomeprazole | Take by mouth. | | 0 | | | | Magnesium (NEXIUM | Patient claims 22 mg | | | | 7 | | PO) | tablet | | | | | + + + +---------+ + + | hyoscyamine | Take 1 tablet by | 30 | 1 | 12/21/19 | | | (LEVSIN) 0.125 mg SL | mouth daily as | tablet | | 14 | 6 | | tablet | needed, may repeat x | | | | | | | 1 for Cramping. | | | | | + + + +---------+ + + | lansoprazole | Take 30 mg by mouth | | 0 | | | | (PREVACID SOLUTAB) | every morning | | | | 6 | | 30 mg disintegrating | (before breakfast). | | | | | | tablet [...] + + | losartan (COZAAR) | Take 25 mg by mouth | | 0 | | | | 25 mg tablet | Daily. | | | | 6 | + + + +---------+ + + [...] documented as of this encounter Progress Notes Conversion Transaction, Provider Unknown - 12/05/2015 8:43 AM PDTFormatting of this note m ight be different from the original. Progress Notes by Kym Bunch RN at 12/05/15 0843 Author: Kym Bunch RN Service: (none) Author Type: Registered Nurse Filed: 12/05/15 0844 Encounter Date: 12/05/2015 Status: Signed Leg Breaker: Kym Bunch RN (Registered Nurse) Lita Vuong is a 75 y.o. female who presents today for InitialWound Care visit. She presents alone. She arrived: Ambulatory. Transfer Assistance: None Pending Amputation on Presentation: no Wound under treatment by Physician outside of Wound Care Center: yes Patient identification verified: yes Secondary verification process completed: yes Patient in isolation precaution: no If yes, what kind?: na Nutrition Risk Screen Score: Fall Risk Assessment Score: Score: 15 Abuse/Suicide Risk Screening: See Wound Care New Patient Flowsheet Education Assessment: See Wound Care New Patient Flowsheet Neuropathy Assessment: See Lower Extremity Assessment Flowsheet Damrai Padilla MD - 12/05/2015 8:14 AM PDTFormatting of this note might be different from the o riginal. Progress Notes by Damari Pike MD at 12/05/15 0814 Author: Damari Pike MD Service: (none) Author Type: Physician Filed: 12/05/15 0920 Encounter Date: 12/05/2015 Status: Signed Leg Breaker: Damari Pike MD (Physician) Subjective: Lita Vuong is a 75 y.o. female who presents for initial visit for wound care. sh e reports that the wound has been present for 2 months. Etiology of the wound includes: Bu rn from wax. Previous therapies to date include:Bacitracin ointment. Current with all vaccin es per patient Other additional history includes: DM - good control per patient., HTN, Hypothyroidism After introducing myself to the patient, I have performed a careful history and physical ex amination. I have formulated a differential diagnosis that needs to be addressed during thi s wound care visit, briefly discussed this differential with Lita and then discussed with them the plan of care. I have also addressed the risks and benefits of all diagnostic and t reatment modalities planned for this visit. I have reviewed the nursing notes as well as pertinent prior records and also Lita Yates rson's PMHx, PSHx, SOC Hx and FAMHx. I have reviewed MEDS and ALLERGIES as well. Review of Systems Constitutional: No fatigue, sweats or weight loss Eyes: No visual changes, loss of vision, or bluriness Nose: No excessive nosebleeds Throat: No sore throat or stridor Lungs: No cough productive of blood GI: No blood in stools, no vomiting blood : No hematuria or urinary incontinence Skeletal: No swelling of joints, no atrophy of muscles, no loss of strength Skin: Scar left wrist Neuro: No loss of sensation in arms/legs, no new weakness, no seizures All systems reviewed and otherwise negative Pertinent items are noted in HPI. Objective: BP 168/80 mmHg | Pulse 67 | Temp(Src) 97.8 F (36.6 C) (Temporal) | Resp 16 General Appearance: Alert, cooperative, no distress, appears stated age Head: Normocephalic, without obvious abnormality, atraumatic Eyes: PERRL, conjunctiva/corneas clear, EOM's intact Ears: deferred Nose: Normal appearing Throat: Moist mucosal membranes, pink appearing Neck: Supple, symmetrical, trachea midline, no adenopathy Back: deferred Lungs: Clear to auscultation bilaterally, respirations unlabored Chest wall: No tenderness or deformity Heart: Regular rate and rhythm, S1 and S2 normal, no murmurs, rub, or gallop Abdomen: Soft, non-tender, bowel sounds active all four quadrants Extremities: Moves all extremities, atraumatic, no cyanosis, no clubbing present Pulses: Pulses palpable in all extremities Skin: Scar on left wrist area non circular - no open wound. The wrist has a normal motil ity. Lymph nodes: No cervical lymphadenopathy Neurologic: No gross motor/sensory deficits Assessment / Plan: Discussed wound care with Lita Vuong, including average length of time for healing a nd that we will be using various topical dressing, packing and wound care options over the c ourse of the visit. Reviewed need for debridement, sometimes cultures or other studies that are necessary to assess pt for proper care and to promote wound healing. Lita verbalized u nderstanding and agreement and questions were answered to the best of my ability on today's visit. See problem list and nursing notes for planned dressing. No procedure was done today. Please keep area dry, clean and protected. Will be DC from the wound clinic today. If the ulcer will open in the next 30 days please just make a follow up appointment here. Visit diagnoses: Scar DM HTN Hypothyroidism DAMARI PIKE MD 12/05/2015 I am evaluating this patient for their wound care needs. They will continue to be taken ca re of by their primary physician/Specialist. 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
--- OUTSIDE RECORDS SUMMARY | ~2019-02-09 | XMS | Encounter Summary ---
Demographics + + + | Address | [address] | | | [place] [address] | + + + | Home Phone [...] + | Prashanth Vuong | ECON | [address] | | | | | [place] | | | | | [address] | | + + + + + Care Team Providers + +------+ + | Care Cartography/Mapping Technician Name | Role | Phone | [...] | | | [place] | [place] | [address] | | | | | | [address] | Phone: | | | | | | Phone: | [phone] | | | | | | [phone] | Fax: | | | | | | Fax: | [phone] | | | | | | [phone] | | +--------+--------+ + + + + [...] | | | [place] | [address] | | | | | [address] | [phone] | | | | | [phone] | | | +--------+ + + + [...] Daily. | tablet | | 19 | | | thiazide (HYZAAR) | | | [...] as of this encounter Progress Notes Edouard Luu, JENY - 09/02/2018 9:24 AM PDTSetup Zio patch heart monitor for 2 days. Elsy pinto will mail recorder to [employer] when done to be scanned.Electronically messi d [...] [place] | | | | | | [address] | | | | | | [phone] | | | | | | | [...]
--- OUTSIDE RECORDS SUMMARY | ~2019-02-09 | XMS | Encounter Summary ---
Demographics + + + | Address | [address] | | | [place] [address] | + + + | Home Phone | | + + + | Preferred Language | Unknown | + + + | Marital Status | | + + + | Presybeterian Affiliation | 1028 | + + + [...] + | Prashanth Vuong | ECON | [address] | | | | | [place] | | | | | [address] | | + + + + + Care Team Providers + +------+ + | Care Table Games Dealer Name | Role | Phone | + +------+ + | Farooq Wesley DO | PCP | | + +------+ + Encounter Details +--------+ + + + + | Date | Type | Department | Care Team | Description | +--------+ + + + + | 12/03/ | Abstract | [facility] | Farooq Wesley | | | 2017 | | [facility] | E, DO [address] | | | | | [facility] [address] | [place], [place] | | | | [address] [place], | [address] | | | | | [place] [address] | [phone] | | | | | [phone] | | | +--------+ + + + [...] [place] | | | | | | [address] | | | | | | [phone] | | | | | | | | +--------+---------+ + + + documented as of this encounter Procedures + +--------+ + + + | Procedure Name | Priori | Date/Time | Associated Diagnosis | Comments | | | ty | | | | + +--------+ + + + | EXTERNAL LAB: | Routin | 11/07/2017 | | Results for this | | HEMOGLOBIN A1C | e | | | procedure are in the | | | | | | results section. | + +--------+ + + + documented in this encounter Results External Lab: Hemoglobin A1c (11/07/2017) + +-------+ + + + | Component | Value | Ref Range | Performed | Pathologist | | | | | At | Signature | + +-------+ + + + | Hemoglobin | 6.2 | % | | | | A1c, | | | | | | external | | | | | + +-------+ + + + + + | Specimen | + + | Blood | + + documented in this encounter Visit Diagnoses Not on filedocumented in this encounter"
--- OUTSIDE RECORDS SUMMARY | ~2019-02-09 | XMS | Encounter Summary ---
Demographics + + + | Address | [address] | | | [place] [address] | + + + | Home Phone | | + + + | Preferred Language | Unknown | + + + | Marital Status | | + + + | Bahai Affiliation | 1028 | + + + | Race | Unknown | + + + | Ethnic Group | Unknown | + + + Author + + + | Author | [facility] | | | and [place] | + + + | Organization | [facility] | | | and [place] | + + + | Address | Unknown | + + + | Phone | Unavailable | + + + Support + + + + + | Name | Relationship | Address | Phone | + + + + + | Prashanth Vuong | ECON | [address] | | | | | [place] | | | | | [address] | | + + + + + Care Team Providers + +------+ + | Care Program Specialist Name | Role | Phone | + +------+ + | Farooq Wesley DO | PCP | | + +------+ + Encounter Details +--------+ + + + + | Date | Type | Department | Care Team | Description | +--------+ + + + + | 04/23/ | Anesthesia | [facility] | Virgilio Covarrubias | | | 2019 | Event | [facility] | Todd DIAZ MD [address] | | | | [address] | [address] [place] | | | | | [place], [place] | [place] [address] | | | | | [address] | [phone] | | | | | [phone] | | | +--------+ + + + [...] 04/23/18 1400 by | | abel | [id number] catheter system; | [facility] | Cecy Means RN | | IV | 20 gauge, 1 1/4 in length; | | | | | intradermal injection, tolerated [...] [place] | | | | | | [address] | | | | | | [phone] | | | | | | | [...] 12:35 | | | | | Starting 04/23/18 at 1235, | | PM PST | [...]
--- OUTSIDE RECORDS SUMMARY | ~2019-02-09 | XMS | Encounter Summary ---
Demographics + + + | Address | [address] | | | [place] [address] | + + + | Home Phone | | + + + | Preferred Language | Unknown | + + + | Marital Status | | + + + | Latter Day Affiliation | 1028 | + + + | Race | Unknown | + + + | Ethnic Group | Unknown | + + + Author + + + | Author | [facility] | | | and [place] | + + + | Organization | [facility] | | | and [place] | + + + | Address | Unknown | + + + | Phone | Unavailable | + + + Support + + + + + | Name | Relationship | Address | Phone | + + + + + | Prashanth Vuong | ECON | [address] | | | | | [place] | | | | | [address] | | + + + + + Care Team Providers + +------+ + | Care Hospice Director Name | Role | Phone | + +------+ + | Farooq Wesley DO | PCP | | + +------+ + Reason for Visit + + + | Reason | Comments | + + + | EGD | | + + + | Dysphagia | | + + + Encounter Details +--------+---------+ + + + | Date | Type | Department | Care Team | Description | +--------+---------+ + + + | 09/20/ | Office | [facility] | Silvano Kaiser MD | Dysphagia, | | 2012 | Visit | GASTROENTEROLOGY | [address], [place] | unspecified (Primary | | | | [address] [place] | [address] [place], [place] | Dx); Diaphragmatic | | | | [address] [place], [place] | [address] | hernia without | | | | [address] | | mention of | | | | [phone] | | obstruction or | | | | | | gangrene; Reflux | | | | | | esophagitis | +--------+---------+ + + + Social History [...] + + + | Blood Pressure | 108/60 | 09/20/2012 3:36 PM | | | | | PDT | | + + + + + | Pulse | 70 | 09/20/2012 3:36 PM | | | | | PDT [...] + + + + | Weight | 83.9 kg (185 lb) | 09/20/2012 3:36 PM | | | | | PDT | | + + + + + | Height | 156.2 cm (5' 1.5") | 09/20/2012 3:36 PM | | | | | PDT | | + + + + + | Body Mass Index | 34.39 | 09/20/2012 3:36 PM | | | | | PDT | | + + + + + documented in this encounter Progress Notes Silvano Kaiser MD - 09/20/2012 4:41 PM PDT Subjective: Patient ID: Lita Vuong is a 72 y.o. female. HPI Comments: 72-year-old female returns to the office for evaluation of dysphagia. Vannesa echols has had dysphagia and what she believes esophageal spasm since her thyroid surgery last fa ll. She underwent an upper endoscopy by Dr. Sandoval in April of this year. 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 Previous upper endoscopy by myself in July of 2009 showed a n Schatzki's ring at the upper margin of a hiatal hernia which was dilated to 60 Cymro. Wi th resolution of symptoms of xiphoid area dysphagia Patient states that her difficulty in swallowing is with liquids or solids. It's along the right side of the neck at the sternal notch. She'll have some sensation of difficulty in s wallowing and she's able to drink water her symptoms seem to improve but if not they progre ss to the fact that she'll have what sounds like esophageal spasm of the xiphoid area. She' ll have episodes of vomiting in order to clear "foamy material". She's taken nitroglycerin sublingually once for treatment of the spasm and her symptoms improved with respect her lowe r esophageal pain. Her symptoms seem to occur one hour before breakfast and about one hour before lunch. The symptoms are not associated with eating any particular foods or activitie s. She'll occasional separate episodes of dysphagia for bread or meat particularly at the x iphoid area. 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 Evaluation at [facility] was negative for any cause of the same . The patient had a video esophagram at [facility] with speech pathology result s are unclear. Patient has fully recovered the use of her voice. She thinks that occasiona lly she gets dry particularly at night but if she's able to drink fluids throughout the day such as tea diet Mountain Dew and/or water her symptoms seem to improve somewhat. She's lynn d no weight loss denies any hematemesis symptoms of reflux or heartburn. Be well-controlled on her Prevacid 15 mg twice a day. Her Prevacid was increased to 30 mg twice a day with no improvement of her symptoms. 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 HENT: Positive for trouble swallowing and neck stiffness. Eyes: Negative. Respiratory: Negative. Cardiovascular: Positive for chest pain. Negative for palpitations and leg swelling. Gastrointestinal: Positive for abdominal pain. Genitourinary: Negative. Musculoskeletal: Negative for myalgias, back pain, joint swelling, arthralgias and gait pro blem. Skin: Negative. Neurological: Negative. Hematological: Negative. Psychiatric/Behavioral: Negative. All other systems reviewed and are negative. Objective: Physical Exam Constitutional: She is oriented to person, place, and time. She appears well-nourished. No distress. HENT: Head: Normocephalic and atraumatic. Right Ear: External ear normal. Left Ear: External ear normal. Nose: Nose normal. Mouth/Throat: Oropharynx is clear and moist. No oropharyngeal exudate. Eyes: Conjunctivae normal are normal. Pupils are equal, round, and reactive to light. Right eye exhibits no discharge. Left eye [...] normal. Judgment and thought content normal. Assessment: Dysphasia questionable esophageal motor abnormality and/or anatomical distortion in the upp er esophageal sphincter area secondary to prior thyroid surgery with possible oral pharyngea l transfer difficulties given her transient voice loss etc. Dysphagia for solids primarily with breads and meats at the xiphoid area probably recurrent Schatzki's ring Other medical problems stable her being addressed by primary care physician Plan: Plan at this time will proceed to get the esophagram results from [facility]. Patient may be a candidate for upper endoscopy with empiric esophageal dilatation via balloo n technique for her or upper esophageal dysphagia and/or possible balloon technique with res pect to possible recurrent Schatzki's ring. Benefits and risks of the procedures were expla ined to the patient she concurs documented in this enc ounter Plan of [...] [place] | | | | | | [address] | | | | | | [phone] | | | | | | | | +--------+---------+ + + + documented as of this encounter Visit Diagnoses + + | Diagnosis | + + | Dysphagia, unspecified(787.20) - Primary Dysphagia, unspecified | + + | Diaphragmatic hernia without mention of obstruction or gangrene | + + | Reflux esophagitis | + + documented in this encounter
--- OUTSIDE RECORDS SUMMARY | ~2019-02-09 | XMS | Encounter Summary ---
Demographics + + + | Address | [address] | | | [place] [address] | + + + | Home Phone | | + + + | Preferred Language | Unknown | + + + | Marital Status | | + + + | Christian Affiliation | 1028 | + + + | Race | Unknown | + + + | Ethnic Group | Unknown | + + + Author + + + | Author | [facility] | | | and [place] | + + + | Organization | [facility] | | | and [place] | + + + | Address | Unknown | + + + | Phone | Unavailable | + + + Support + + + + + | Name | Relationship | Address | Phone | + + + + + | Prashanth Vuong | ECON | [address] | | | | | [place] | | | | | [address] | | + + + + + Care Team Providers + +------+ + | Care Residential Sales Executive Name | Role | Phone | + [...] Gastroesopha | [address], | | | | | geal reflux | [place], [place] | [place] [address] | | | | | disease, | [address] [place] | [place], | | | | | esophagitis | [place], [place] | [place] [address] | | | | | presence not | [address] | Phone: | | | | | specified | Phone: | [phone] | | | | | Dysphagia, | [phone] | Fax: | | | | | unspecified | Fax: | [phone] | | | | | type | [phone] | | | | | | Procedures | | | | | | | SD | | | | | | | ESOPHAGOGAST | | | | | | | RODUODENOSCO | | | | | | | PY TRANSORAL | | | | | | | DIAGNOSTIC | | | | | | | SD EGD | | | | | | | TRANSORAL | | | | | | | BIOPSY | | | | | | | SINGLE/MULTI | | | | | | | PLE | | | +--------+ + + + + + Reason for Visit + + + | Reason | Comments | + + + | Appointment | EGD | + + + Encounter Details +--------+ + + + + | Date | Type | Department | Care Team | Description | +--------+ + + + + | 02/28/ | Telephone | [facility] | Silvano Kaiser MD | Appointment (EGD) | | 2016 | | GASTROENTEROLOGY | [address], [place] | | | | | [address] | [address] [place], [place] | | | | | [address] [place], [place] | [address] | | | | | [address] | | | | | | [phone] | | | +--------+ + + + [...] [place] | | | | | | [address] | | | | | | [phone] | | | | | | | | +--------+---------+ + + + + + +--------+ + + | Name | Type | Priori | Associated Diagnoses | Order Schedule | | | | ty | | | + + +--------+ + + | Procedure | Outpatient | Routin | Gastroesophageal | Expected: 03/05/2016 | | [id number] | Referral | e | Reflux Disease, [...]
--- OUTSIDE RECORDS SUMMARY | ~2019-02-09 | XMS | Encounter Summary ---
Demographics + + + | Address | [address] | | | [place] [address] | + + + | Home Phone | | + + + | Preferred Language | Unknown | + + + | Marital Status | | + + + | Anabaptist Affiliation | 1028 | + + + [...] + | Prashanth Vuong | ECON | [address] | | | | | [place] | | | | | [address] | | + + + + + Care Team Providers + +------+ + | Care Machine Programmer Name | Role | Phone | + [...] | DO [address] | [address], | | | | | [address] | [address] | [address] | | | | | ring | [place], [place] | [place], | | | | | | [address] | [place] [address] | | | | | | Phone: | Phone: | | | | | | [phone] | [phone] | | | | | | Fax: | Fax: | | | | | | [phone] | [phone] | +--------+ + + + + + [...] dysphagia | | 2018 | Visit | [facility] | E, DO [address] | (Primary Dx); | | | | [facility] [address] | [place], [place] | [address]; | | | | [address] [place], | [address] | Chest pain, | | | | [place] [address] | [phone] | unspecified type; | | | | [phone] | | Trochanteric | | | | [...] 3:00 PM Edilia Vuong presents today with [facility] Complaint of: Seen in ED for possible [...] as directed when needed -We will contact [facility] regarding stress test -Referral to Dr. Kaiser in [place] 30 minute visit with > 50% time [...] sweaty or clammy. Then she went to [facility] ER. When she got to the [...] No complications and tolerated well. 1.0cc (40mg/1ml) [facility] [address]-4 LOT [id number] EXP 04/11 and 4.0cc 1% lidocaine [facility] 75094-120-41 LOT [id number] EXP 06/10 injected into Left great troch [...] Procedure: EGD; Surgeon: Silvano Kaiser MD; Location: [facility] UPPER GASTROINTESTINAL ENDOSCOPY N/A 02/03/2017 Procedure: EGD; Surgeon: Silvano Kaiser MD; Location: [facility] Social History Social History [...] Hives and Swelling Cefazolin Hives and Rash Bruni Hives and Rash Review of Systems Constitutional: [...] [place] | | | | | | [address] | | | | | | [phone] | | | | | | | [...]
--- OUTSIDE RECORDS SUMMARY | ~2019-02-09 | XMS | Encounter Summary ---
Demographics + + + | Address | [address] | | | [place] [address] | + + + | Home Phone [...] + | Prashanth Vuong | ECON | [address] | | | | | [place] | | | | | [address] | | + + + + + Care Team Providers + +------+ + | Care Nurse Head Name | Role | Phone | [...] | +--------+ + + + + | 11/16/ | Telephone | [facility] | Silvano Kaiser MD | Appointment | | 2013 | | GASTROENTEROLOGY | [address], [place] | | | | | [address] [place] | [address] [place], [place] | | | | | [address] [place], [place] | [address] | | | | | [address] | | | | | | [phone] | | | +--------+ + + + [...] [place] | | | | | | [address] | | | | | | [phone] | | | | | | | | +--------+---------+ + + + documented as of this encounter Visit Diagnoses Not on filedocumented in this encounter"
--- OUTSIDE RECORDS SUMMARY | ~2019-02-09 | XMS | Encounter Summary ---
Demographics + + + | Address | [address] | | | [place] [address] | + + + | Home Phone [...] + | Prashanth Vuong | ECON | [address] | | | | | [place] | | | | | [address] | | + + + + + Care Team Providers + +------+ + | Care Cartridge Belt Puncher Name | Role | Phone | + +------+ + | Farooq Wesley DO | PCP | | + +------+ + Encounter Details +--------+ + + + + | Date | Type | Department | Care Team | Description | +--------+ + + + + | 03/05/ | Hospital | [facility] | Silvano Kaiser MD | Gastroesophageal | | 2016 | Encounter | MED [facility] INTRA OP | [address], [place] | reflux disease with | | | | [address] | [address] [place], [place] | esophagitis (Primary | | | | [place], [place] | [address] | Dx); Other | | | | [address] | | dysphagia | | | | [phone] | | | +--------+ + + + [...] | | | | | | | 4301-2702 MG-UNIT | | | | | | [...] [place] | | | | | | [address] | | | | | | [phone] | | | | | | | [...] [address] | [place] | [phone] | | [facility] | | [address] | | | - LABORATORY | | | | + + + + + EGD (03/05/2016 10:42 AM PST) + + | Specimen | + + | | + + + + -+ | Narrative | Performed At | + + -+ | | [facility] | | GastroenterologyPatient Name: Lita VuongProcedcorine Date: | PROVATION | | 03/05/2016 10:42 AMN: [id number] #: [id number] of | | | : 1940dmit Type: AmbulatoryAge: 75Room: [facility] 01Gender: | | | FemaleNote Status: [...] the nurse | | | and the vehicle glass technician in the endoscopy suite. Mental Status [...] Scope In: 11:03:43 AMScope Out: 11:12:37 AM [place] | | | [facility], [address] [place] [address] | | | [phone] | | | - Discharge patient to [...] |Scope Out: 11:12:37 AM | | | [facility], [address] [place] [address] | | | [address] | | + + -+ + +---------+ [...] + | [facility] | [address] | [place] | [phone] | | [facility] | | [address] | | | - LABORATORY | | | | + + + + + Surgical Pathology Exam (03/05/2016 12:00 AM PST) + + | Specimen | + + | | + + + + + | Narrative | Performed At | + + + | SPECIMEN(S): A MID ESOPHAGEAL BIOPSY SPECIMEN SOURCE: [facility] PATHOLOGY | | ESOPHAGEAL [...] for increased epithelial eosinophils. | | | JVR:[facility]:C2NR GROSS DESCRIPTION: The specimen is [...] | | slide preparation were performed by [facility], [facility] | | | [facility], [facility] [address], [place] [address] (Demolition Expert: Anthony Turner | | | Franko CLIA#: [id number]). Professional interpretation was performed | | | by [facility], [facility], [facility] | | | [place] [address] (Demolition Expert: Anthony | | | Frank[place] Turner; CLIA#: [id number]). Diagnostician: Anthony Acosta | | | Yue PAEG Pathologist Electronically Signed 03/06/2016 | | + [...]
--- OUTSIDE RECORDS SUMMARY | ~2019-02-09 | XMS | Encounter Summary ---
Demographics + + + | Address | [address] | | | [place] [address] | + + + | Home Phone [...] + | Prashanth Vuong | ECON | [address] | | | | | [place] | | | | | [address] | | + + + + + Care Team Providers + +------+ + | Care Burr Grinder Name | Role | Phone | + +------+ + PCP | Unavailable | + +------+ + Encounter Details +--------+ + + + + | Date | Type | Department | Care Team | Description | +--------+ + + + + | 12/02/ | Abstract | [place] [facility] | DATA MIGRATION PAL | | | 2012 | | Conversion Location | SR | | | | | [phone] | | | +--------+ + + + [...] + + + | Blood Pressure | 130/72 | 11/13/2011 12:00 AM | | | | | PDT [...] + + + + | Weight | 86.8 kg (191 lb 6.4 | 11/13/2011 12:00 AM | | | | oz) | PDT | | + + + + + | Height | 153.7 cm (5' 0.5") | 11/05/2009 12:00 AM | | | | | PDT | | + + + + + | Body Mass Index | 36.76 | 11/05/2009 12:00 AM | | | | | PDT [...] [place] | | | | | | [address] | | | | | | [phone] | | | | | | | | +--------+---------+ + + + documented as of this encounter Visit Diagnoses Not on filedocumented in this encounter
--- OUTSIDE RECORDS SUMMARY | ~2019-02-09 | XMS | Clinical Summary ---
Demographics + + + | Address | [address] | | | [place] [address] | + + + | Home Phone | | + + + | Preferred Language | Unknown | + + + | Marital Status | | + + + | Rastafarian Affiliation | 1028 | + + + [...] + | Prashanth Vuong | ECON | [address] | | | | | [place] | | | | | [address] | | + + + + + Care Team Providers + +------+ + | Care City Jailer Name | Role | Phone | + [...] + + + + + + | [place] | Hives, Rash | Low | 03/04/20 [...] Appointment | | 2019 | | | BARIATRIC COORDINATOR | | +--------+ + + + + [...] | + + + + | INFLUENZA, [id number], | 03/15/2009 | | | INACTIVATED | [...] ST | | | | | | [place] | | | | | | [address] | | | | | | [phone] | | | | | | | [...] Testing Performed at: [facility] CLIA: [id number] - [address] | REFERENCE LAB | | [place] [address] | [facility] | + + + + + + + + | Performing | Address | City/State/Zipcode | Phone Number | | Organization | | | | + + + + + | REFERENCE LAB | [address] | [place] [address] | [phone] | | [facility] | | | | [...] the | | | | | | [place] [facility] | | | | | | [...] Testing Performed at: [facility] CLIA: [id number] - [address] | REFERENCE LAB | | [place] [address] | [facility] | + + + + + + + + | Performing | Address | City/State/Zipcode | Phone Number | | Organization | | | | + + + + + | REFERENCE LAB | [address] | [place] [address] | [phone] | | [facility] | | | | [...] + + | [facility] | [address] | [place] [address] | [phone] | | HOSPITAL LABORATORY | | | [...] + +--------+ | MEDICARE | MEDICA | [id number] | 05/22/19 | [phone] | | Medica | | | RE | | 06-Pre | 5 | | re | | | PART A | | sent | | | | | | AND B | | | | | | + +--------+ +--------+ + +--------+ | MEDICARE | MEDICA | [id number] | 05/22/19 | [phone] | | Medica | | | RE | | 06-Pre | 5 | | re | | | PART A | | sent | | | | | | AND B | | | | | | + +--------+ +--------+ + +--------+ | MODA | MODA | [id number] | 05/22/19 | [phone] | [address] | Indemn | | | HEALTH | | 08-Pre | 9 | [phone] | ity | | | MDCR | | sent | | [place], | | | | [place] | | | | [place] [address] | | + +--------+ +--------+ + +--------+ | MODA | MODA | [id number] | 03/23/19 | [phone] | [address] | Indemn | | | HEALTH | | 17-Pre | 9 | [phone] | ity | | | MDCR | | sent | | [place], | | | | [place] | | | | [place] [address] | | + +--------+ +--------+ + +--------+ + +--------+ +--------+ + + | Guarantor Name | Accoun | Relation to | Date | Phone | Billing Address | | | t Type | Patient | of | | | | | | | | | | + +--------+ +--------+ + + | Lita Vuong | Person | Self | [birth year] | [address] | | | al/Fam | | 1941 | [phone] | [place], [place] | | | [place] | | | 3 (Home) | [address] | + +--------+ +--------+ + + | Lita Vuong | Person | Self | [birth year] | | [address] | | | al/Fam | | 1941 | [phone] | [address] [place], [place] | | | [place] | | | 3 (Home) | [address] | + +--------+ +--------+ + + | Lita Vuong | Third | Self | [birth year] | | [address] | | | Republican | | 1941 | [phone] | [address] [place] | | | [place] | | | 3 ([place]) | [address] | | | pauly | | | | | + +--------+ +--------+ + + Advance Directives + + + + + | Type | Date Recorded | Patient | Explanation | | | | Lead Software Engineer | | + + + + + | Power of | | | | | Cytology Teacher | | | | + + + + + | Advance | 03/05/2016 | | | | Directive | 8:17 AM | | | + + + + +
--- OUTSIDE RECORDS SUMMARY | ~2019-02-09 | XMS | Encounter Summary ---
Demographics + + + | Address | [address] | | | [place] [address] | + + + | Home Phone [...] + | Prashanth Vuong | ECON | [address] | | | | | [place] | | | | | [address] | | + + + + + Care Team Providers + +------+ + | Care Company Pilot Name | Role | Phone | + +------+ + | Farooq Wesley DO | PCP | | + +------+ + Reason for Visit + + + | Reason | Comments | + + + | Lab Results | | + + + Encounter Details +--------+ + + + + | Date | Type | Department | Care Team | Description | +--------+ + + + + | 01/19/ | Telephone | [facility] | Farooq Wesley | Lab Results | | 2018 | | [facility] | E, DO [address] | | | | | MEDICAL CLIN[address] | [place], [place] | | | | | [address] [place], | [address] | | | | | [place] [address] | [phone] | | | | | [phone] | | | +--------+ + + + [...] [place] | | | | | | [address] | | | | | | [phone] | | | | | | | | +--------+---------+ + + + documented as of this encounter Visit Diagnoses Not on filedocumented in this encounter"
--- OUTSIDE RECORDS SUMMARY | ~2019-02-09 | XMS | Encounter Summary ---
Demographics + + + | Address | [address] | | | [place] [address] | + + + | Home Phone [...] + | Prashanth Vuong | ECON | [address] | | | | | [place] | | | | | [address] | | + + + + + Care Team Providers + +------+ + | Care Landscape Maintenance Internship Name | Role | Phone | + [...] 2016 | | GASTROENTEROLOGY | [address], [place] | | | | | [address] [place] | [address] [place], [place] | | | | | [address] [place], [place] | [address] | | | | | [address] | | | | | | [phone] | | | +--------+ + + + [...] [place] | | | | | | [address] | | | | | | [phone] | | | | | | | | +--------+---------+ + + + documented as of this encounter Visit Diagnoses Not on filedocumented in this encounter
--- OUTSIDE RECORDS SUMMARY | ~2019-02-09 | XMS | Encounter Summary ---
Demographics + + + | Address | [address] | | | [place] [address] | + + + | Home Phone [...] + | Prashanth Vuong | ECON | [address] | | | | | [place] | | | | | [address] | | + + + + + Care Team Providers + +------+ + | Care Industrial Conveyor Belt Repairer Name | Role | Phone | + +------+ + | Farooq Wesley DO | PCP | | + +------+ + Encounter Details +--------+ + + + + | Date | Type | Department | Care Team | Description | +--------+ + + + + | 12/07/ | Orders Only | [facility] | Farooq Wesley | | | 2017 | | [facility] | E, DO [address] | | | | | MEDICAL CLIN[facility] [address] | [place], [place] | | | | | [address] [place], | [address] | | | | | [place] [address] | [phone] | | | | | [phone] | | | +--------+ + + + [...] [place] | | | | | | [address] | | | | | | [phone] | | | | | | | | +--------+---------+ + + + documented as of this encounter Visit Diagnoses Not on filedocumented in this encounter"
--- OUTSIDE RECORDS SUMMARY | ~2019-02-09 | XMS | Encounter Summary ---
Demographics + + + | Address | [address] | | | [place] [address] | + + + | Home Phone | | + + + | Preferred Language | Unknown | + + + | Marital Status | | + + + | Religion Affiliation | 1028 | + + + | Race | Unknown | + + + | Ethnic Group | Unknown | + + + Author + + + | Author | [facility] | | | and [place] | + + + | Organization | [facility] | | | and [place] | + + + | Address | Unknown | + + + | Phone | Unavailable | + + + Support + + + + + | Name | Relationship | Address | Phone | + + + + + | Prashanth Vuong | ECON | [address] | | | | | [place] | | | | | [address] | | + + + + + Care Team Providers + +------+ + | Care Metalsmith Apprentice Name | Role | Phone | + [...] Results, Imaging | | 2018 | | [facility] | E, DO [address] | | | | | MEDICAL CLIN[address] | [place], [place] | | | | | [address] [place], | [address] | | | | | [place] [address] | [phone] | | | | | [phone] | | | +--------+ + + + [...] [place] | | | | | | [address] | | | | | | [phone] | | | | | | | | +--------+---------+ + + + documented as of this encounter Visit Diagnoses Not on filedocumented in this encounter"
--- OUTSIDE RECORDS SUMMARY | ~2019-02-09 | XMS | Encounter Summary ---
Demographics + + + | Address | [address] | | | [place] [address] | + + + | Home Phone [...] + | Prashanth Vuong | ECON | [address] | | | | | [place] | | | | | [address] | | + + + + + Care Team Providers + +------+ + | Care Bell Tier Name | Role | Phone | + [...] Medication Refill | | 2017 | | [facility] | [facility] | | | | | MEDICAL CLIN[facility] [address] | | | | | | [address] [facility], | | | | | | [place] [address] | | | | | | [phone] | | | +--------+--------+ + + + [...] [place] | | | | | | [address] | | | | | | [phone] | | | | | | | | +--------+---------+ + + + documented as of this encounter Visit Diagnoses Not on filedocumented in this encounter"
--- OUTSIDE RECORDS SUMMARY | ~2019-02-09 | XMS | Encounter Summary ---
Demographics + + + | Address | [address] | | | [place] [address] | + + + | Home Phone | | + + + | Preferred Language | Unknown | + + + | Marital Status | | + + + | Caodaism Affiliation | 1028 | + + + | Race | Unknown | + + + | Ethnic Group | Unknown | + + + Author + + + | Author | [facility] | | | and [place] | + + + | Organization | [facility] | | | and [place] | + + + | Address | Unknown | + + + | Phone | Unavailable | + + + Support + + + + + | Name | Relationship | Address | Phone | + + + + + | Prashanth Vuong | ECON | [address] | | | | | [place] | | | | | [address] | | + + + + + Care Team Providers + +------+ + | Care Temporary Office Assistant Name | Role | Phone | [...] | | | MEDICAL CLIN[facility] [address] | [place], [place] | | | | | [address] [place], | [address] | | | | | [place] [address] | [phone] | | | | | [phone] | | | +--------+ + + + [...] [place] | | | | | | [address] | | | | | | [phone] | | | | | | | | +--------+---------+ + + + documented as of this encounter Visit Diagnoses Not on filedocumented in this encounter"
--- OUTSIDE RECORDS SUMMARY | ~2019-02-09 | XMS | Encounter Summary ---
Demographics + + + | Address | [address] | | | [place] [address] | + + + | Home Phone | | + + + | Preferred Language | Unknown | + + + | Marital Status | | + + + | Nondenominational Affiliation | 1028 | + + + | Race | Unknown | + + + | Ethnic Group | Unknown | + + + Author + + + | Author | [facility] | | | and [place] | + + + | Organization | [facility] | | | and [place] | + + + | Address | Unknown | + + + | Phone | Unavailable | + + + Support + + + + + | Name | Relationship | Address | Phone | + + + + + | Prashanth Vuong | ECON | [address] | | | | | [place] | | | | | [address] | | + + + + + Care Team Providers + +------+ + | Care Accountant Auditor Name | Role | Phone | + +------+ + | Farooq Wesley DO | PCP | | + +------+ + Encounter Details +--------+ + + + + | Date | Type | Department | Care Team | Description | +--------+ + + + + | 01/22/ | Episode | [facility] | Alisa Edward, | | | 2016 | Changes | GASTROENTEROLOGY | [address] | | | | | [address] | | | | | | [address] [place] | | | | | | [address] | | | | | | [phone] | | | +--------+ + + + [...] [place] | | | | | | [address] | | | | | | [phone] | | | | | | | | +--------+---------+ + + + documented as of this encounter Visit Diagnoses Not on filedocumented in this encounter"
--- OUTSIDE RECORDS SUMMARY | ~2019-02-09 | XMS | Encounter Summary ---
Demographics + + + | Address | [address] | | | [place] [address] | + + + | Home Phone | | + + + | Preferred Language | Unknown | + + + | Marital Status | | + + + | Shinto Affiliation | 1028 | + + + | Race | Unknown | + + + | Ethnic Group | Unknown | + + + Author + + + | Author | [facility] | | | and [place] | + + + | Organization | [facility] | | | and [place] | + + + | Address | Unknown | + + + | Phone | Unavailable | + + + Support + + + + + | Name | Relationship | Address | Phone | + + + + + | Prashanth Vuong | ECON | [address] | | | | | [place] | | | | | [address] | | + + + + + Care Team Providers + +------+ + | Care Product Safety Engineer Name | Role | Phone | + +------+ + | Farooq Wesley DO | PCP | | + +------+ + Reason for Visit + + + | Reason | Comments | + + + | Results, Pathology | egd,colon | + + + Encounter Details +--------+ + + + + | Date | Type | Department | Care Team | Description | +--------+ + + + + | 05/03/ | Telephone | [facility] | Silvano Kaiser MD | Results, Pathology | | 2019 | | GASTROENTEROLOGY | [address], [place] | (egd,colon) | | | | [address] [place] | [address] [place], [place] | | | | | [address] [place] | [address] | | | | | [address] | | | | | | [phone] | | | +--------+ + + + [...] [place] | | | | | | [address] | | | | | | [phone] | | | | | | | | +--------+---------+ + + + documented as of this encounter Visit Diagnoses Not on filedocumented in this encounter"
--- OUTSIDE RECORDS SUMMARY | ~2019-02-09 | XMS | Encounter Summary ---
Demographics + + + | Address | [address] | | | [place] [address] | + + + | Home Phone | | + + + | Preferred Language | Unknown | + + + | Marital Status | | + + + | Jew Affiliation | 1028 | + + + [...] + | Prashanth Vuong | ECON | [address] | | | | | [place] | | | | | [address] | | + + + + + Care Team Providers + +------+ + | Care Cotton Sampler Name | Role | Phone | + [...] | 2018 | | [facility] | [facility] | | | | | MEDICAL CLIN[facility] [address] | | | | | | [address] [place], | | | | | | [place] [address] | | | | | | [phone] | | | +--------+ + + + [...] [place] | | | | | | [address] | | | | | | [phone] | | | | | | | | +--------+---------+ + + + documented as of this encounter Visit Diagnoses Not on filedocumented in this encounter"
--- OUTSIDE RECORDS SUMMARY | ~2019-02-09 | XMS | Encounter Summary ---
Demographics + + + | Address | [address] | | | [place] [address] | + + + | Home Phone [...] + | Prashanth Vuong | ECON | [address] | | | | | [place] | | | | | [address] | | + + + + + Care Team Providers + +------+ + | Care Valve Seater Operator Name | Role | Phone | [...] | | | | [address] [facility] | | | | | | [address] | | | | | | [address] | | | | | | [phone] | | | +--------+ + + + [...] [place] | | | | | | [address] | | | | | | [phone] | | | | | | | | +--------+---------+ + + + documented as of this encounter Visit Diagnoses Not on filedocumented in this encounter"
--- OUTSIDE RECORDS SUMMARY | ~2019-02-09 | XMS | Encounter Summary ---
Demographics + + + | Address | [address] | | | [place] [address] | + + + | Home Phone [...] + | Author | [facility] | | | and [place] | + + + | Organization | [facility] | | | and [place] | + + + | Address | Unknown | + + + | Phone | Unavailable | + + + Support + + + + + | Name | Relationship | Address | Phone | + + + + + | Prashanth Vuong | ECON | [address] | | | | | [place] | | | | | [address] | | + + + + + Care Team Providers + +------+ + | Care Carousel Attendant Name | Role | Phone | + +------+ + | Farooq Wesley DO | PCP | | + +------+ + Reason for Visit +--------+ + | Reason | Comments | +--------+ + | Other | | +--------+ + Encounter Details +--------+ + + + + | Date | Type | Department | Care Team | Description | +--------+ + + + + | 01/19/ | Telephone | [facility] | Farooq Wesley | Other | | 2017 | | [facility] | E, DO [address] | | | | | [facility] [address] | [place], [place] | | | | | [address] [place], | [address] | | | | | [place] [address] | [phone] | | | | | [phone] | | | +--------+ + + + [...] | Office | Primary Care | Farooq eWsley | | | 2018 | Visit | | [place], DO [address] | | | | | | [place] | | | | | | [address] | | | | | | [phone] | | | | | | | | +--------+---------+ + + + documented as of this encounter Procedures + +--------+ + + + | Procedure Name | Priori | Date/Time | Associated Diagnosis | Comments | | | ty | | | | + +--------+ + + + | HEMOGLOBIN A1C | Routin | 01/19/2018 | | Results for this | | | e | 11:03 AM | | procedure are in the | | | | PDT | | results section. | + +--------+ + + + | COMPREHENSIVE | Routin | 01/19/2018 | | Results for this | | METABOLIC PANEL | e | 11:03 AM | | procedure are in the | | | | PDT | | results section. | + +--------+ + + + documented in this encounter Results Hemoglobin A1C (01/19/2018 11:03 AM PDT) + + + + + + | Component | Value | Ref Range | Performed | Pathologist | | | | | At | Signature | + + + + + + | Hemoglobin | 6.0 | | REFERENCE | | | A1c | | | LAB | | | | | | [facility] | | + + + + + + | Estimated | 126Comment: | | REFERENCE | | | Average [...] the | | | | | | [place] Diabetes | | | | | | [...] Testing Performed at: [facility] CLIA: [id number] - [id number] | REFERENCE LAB | | [place] [address] | [facility] | + + + + + + + + | Performing | Address | City/State/Zipcode | Phone Number | | Organization | | | | + + + + + | REFERENCE LAB | [facility] | [place] [address] | [phone] | | [facility] | | | | + + + + + Comprehensive Metabolic Panel (01/19/2018 11:03 AM PDT) + + + + + + | Component | Value | Ref Range | Performed | Pathologist | | | | | At | Signature | + + + + + + | Sodium | 137 | 132 - 143 | REFERENCE | | | | | | LAB | | | | | | [facility] | | + + + + + + | Potassium | 3.9 | 3.6 - 5.1 | REFERENCE | | | | | | LAB | | | | | | [facility] | | + + + + + + | Chloride | 101 | 95 - 112 | REFERENCE | | | | | | LAB | | | | | | [facility] | | + + + + + + | Carbon | 24 | 19 - 31 | REFERENCE | | | dioxide | | | LAB | | | | | | [facility] | | + + + + + + | Anion Gap | 15.9 | 7 - 21 | REFERENCE | | | | | | LAB | | | | | | [facility] | | + + + + + + | Glucose | 117 (H) | 70 - 100 | REFERENCE | | | | | | LAB | | | | | | [facility] | | + + + + + + | BUN | 14 | 6 - 23 | REFERENCE | | | | | | LAB | | | | | | [facility] | | + + + + + + | Creatinine | 1.05 | 0.70 - 1.18 | REFERENCE | | | | | | LAB | | | | | | [facility] | | + + + + + + | GFR | 51 (L) | | REFERENCE | | | ESTIMATE | | | LAB | | | | | | [facility] | | + + + + + + | BUN/Creatin | 13.3 | 6.0 - 28.6 | REFERENCE | | | ine Ratio | | | LAB | | | | | | [facility] | | + + + + + + | Calcium | 8.9 | 8.5 - 10.3 | REFERENCE | | | | | | LAB | | | | | | [facility] | | + + + + + + | AST (SGOT) | 22 | 13 - 39 | REFERENCE | | | (REF) | | | LAB | | | | | | [facility] | | + + + + + + | ALT (SGPT) | 19 | 7 - 52 | REFERENCE | | | (REF) | | | LAB | | | | | | [facility] | | + + + + + + | ALK PHOS | 82 | 31 - 130 | REFERENCE | | | | | | LAB | | | | | | [facility] | | + + + + + + | BILIRUBIN, | 0.5 | 0.0 - 1.2 | REFERENCE | | | TOTAL | | | LAB | | | | | | [facility] | | + + + + + + | Protein, | 6.0 | 6.0 - 8.3 | REFERENCE | | | Total | | | LAB | | | | | | [facility] | | + + + + + + | Albumin | 3.6 | 3.5 - 5.0 | REFERENCE | | | | | | LAB | | | | | | [facility] | | + + + + + + | Globulin | 2.4 | 1.8 - 3.5 | REFERENCE | | | | | | LAB | | | | | | [facility] | | + + + + + + | A/G Ratio | 1.5Comment: | 1.1 - 2.4 | REFERENCE | | | | ESTIMATED GFR Reference | | LAB | | | | Range:GFR = Less than | | [facility] | | | | 60: Chronic Kidney | | | | | | Disease, if found over a | | | | | | 3 month period.GFR = | | | | | | Less than 15: Kidney | | | | | | Failure.For | | | | | | Americans, multiply the | | | | | | calculated GFR by | | | | | | 1.21.GFR calculation is | | | | | | not valid for patients | | | | | | under age 18 years.For | | | | | | patients over age 70 | | | | | | please interpret results | | | | | | with caution as results | | | | | | have not been validated | | | | | | for this calculation | | | | | | method Please Note:Total | | | | | | Protein Reference range | | | | | | change as of | | | | | | 08/10/2017.Please Note: | | | | | | Calcium reference range | | | | | | change as of 10/08/2017. | | | | + + + + + + + + | Specimen | + + | | + + + + + | Narrative | Performed At | + + + | Testing Performed at: [facility] CLIA: [id number] - [id number] | REFERENCE LAB | | [place] [address] | [facility] | + + + + + + + + | Performing | Address | City/State/Zipcode | Phone Number | | Organization | | | | + + + + + | REFERENCE LAB | [facility] | [place] [address] | [phone] | | [facility] | | | | + + + + + documented in this encounter Visit Diagnoses Not on filedocumented in this encounter"
--- OUTSIDE RECORDS SUMMARY | ~2019-02-09 | XMS | Encounter Summary ---
Demographics + + + | Address | [address] | | | [place] [address] | + + + | Home Phone | | + + + | Preferred Language | Unknown | + + + | Marital Status | Single | + + + | Muslim Affiliation | Unknown | + + + | Race | Unknown | + + + | Ethnic Group | Other Race | + + + Author + + + | Author | [facility] | + + + | Organization | [facility] | + + + | Address | Unknown | + + + | Phone | Unavailable | + + + Support + + +---------+ + | Name | Relationship | Address | Phone | + + +---------+ + | None None | ECON | Unknown | Unavailable | + + +---------+ + Care Team Providers + +------+ + | Care Java Swing Developer Name | Role | Phone | [...] | 2011 | anned | [address] | [phone] | | | | | [address] | | | | | | [place], [place] | | | | | | [address] | | | +--------+ + + + [...]
--- OUTSIDE RECORDS SUMMARY | ~2019-02-09 | XMS | Encounter Summary ---
Demographics + + + | Address | [address] | | | [place] [address] | + + + | Home Phone | | + + + | Preferred Language | Unknown | + + + | Marital Status | | + + + | Scientologist Affiliation | 1028 | + + + | Race | Unknown | + + + | Ethnic Group | Unknown | + + + Author + + + | Author | [facility] | | | and [place] | + + + | Organization | [facility] | | | and [place] | + + + | Address | Unknown | + + + | Phone | Unavailable | + + + Support + + + + + | Name | Relationship | Address | Phone | + + + + + | Prashanth Vuong | ECON | [address] | | | | | [place] | | | | | [address] | | + + + + + Care Team Providers + +------+ + | Care Cut Off Saw Operator Pipe Blanks Name | Role | Phone | + [...] | | | | gale/pt/m | | [place] [address] | | | | | c | | Phone: | | | | | Procedures | | [phone] | | | | | OFFICE VISIT | | Fax: | | | | | REGULAR | | [phone] | +--------+--------+ + + + + Encounter Details +--------+---------+ + + + | Date | Type | Department | Care Team | Description | +--------+---------+ + + + | 12/20/ | Office | [facility] [place] | Silvano Kaiser MD | Abdominal pain, | | 2013 | Visit | GASTROENTEROLOGY | [address], [place] | epigastric (Primary | | | | [address] [place] | [address] [place], [place] | Dx); Diarrhea; Full | | | | [address] [place], [place] | [address] | incontinence of | | | | [address] | | feces | | | | [phone] | | | +--------+---------+ + + + [...] of colonic polyps. Colonoscopy in 9 of 20 10 was within normal limits except for hemorrhoids tendency and tortuosity Records reviewed in [facility] medicine firm primarily hypertension hyperglycemia gas troesophageal [...] surgery hemithyroidectomy - right Breast reduction surgery 1994 bilateral Family History Problem Relation Age of [...] [facility] Levsin [facility] on an [facility]-needed basis [...] made to ensure accuracy; however, inadvertent computerized chief estimator errors may be pre sent. documented in this enc ounter Plan of [...] [place] | | | | | | [address] | | | | | | [phone] | | | | | | | | +--------+---------+ + + + documented as of this encounter Visit Diagnoses + + | Diagnosis | + + | Abdominal pain, epigastric - Primary | + + | Diarrhea | + + | Full incontinence of feces | + + documented in this encounter
--- OUTSIDE RECORDS SUMMARY | ~2019-02-09 | XMS | Encounter Summary ---
Demographics + + + | Address | [address] | | | [place] [address] | + + + | Home Phone [...] + | Prashanth Vuong | ECON | [address] | | | | | [place] | | | | | [address] | | + + + + + Care Team Providers + +------+ + | Care Diagnostics Sales Developer Name | Role | Phone | [...] | | | MEDICAL CL[facility] [address] | [place], [place] | | | | | [address] [facility], | [address] | | | | | [place] [address] | [phone] | | | | | [phone] | | | +--------+ + + + [...] [place] | | | | | | [address] | | | | | | [phone] | | | | | | | | +--------+---------+ + + + documented as of this encounter Visit Diagnoses Not on filedocumented in this encounter"
--- OUTSIDE RECORDS SUMMARY | ~2019-02-09 | XMS | Encounter Summary ---
Demographics + + + | Address | [address] | | | [place] [address] | + + + | Home Phone [...] + | Prashanth Vuong | ECON | [address] | | | | | [place] | | | | | [address] | | + + + + + Care Team Providers + +------+ + | Care Veneer Matcher Name | Role | Phone | + [...] | | | | | [place] [address] | | +--------+ + + + + [...] | Visit | | E, DO [address] | | | | | | [place] | | | | | | [address] | | | | | | [phone] | | | | | | | | +--------+---------+ + + + documented as of this encounter Visit Diagnoses Not on filedocumented in this encounter"
--- OUTSIDE RECORDS SUMMARY | ~2019-02-09 | XMS | Encounter Summary ---
Demographics + + + | Address | [address] | | | [place] [address] | + + + | Home Phone [...] + | Prashanth Vuong | ECON | [address] | | | | | [place] | | | | | [address] | | + + + + + Care Team Providers + +------+ + | Care Poundmaster Name | Role | Phone | + [...] Medication Refill | | 2018 | | [facility] | [address] [place] [address] | | | | | MEDICAL CLIN[facility] [address] | [facility], [place] | | | | | [address] [place], | [address] | | | | | [place] [address] | [phone] | | | | | [phone] | | | +--------+--------+ + + + [...] [place] | | | | | | [address] | | | | | | [phone] | | | | | | | | +--------+---------+ + + + documented as of this encounter Visit Diagnoses Not on filedocumented in this encounter"
--- OUTSIDE RECORDS SUMMARY | ~2019-02-09 | XMS | Encounter Summary ---
Demographics + + + | Address | [address] | | | [place] [address] | + + + | Home Phone [...] + | Prashanth Vuong | ECON | [address] | | | | | [place] | | | | | [address] | | + + + + + Care Team Providers + +------+ + | Care Wire Splicer Name | Role | Phone | + +------+ + | Farooq Wesley DO | PCP | | + +------+ + Encounter Details +--------+ + + + + | Date | Type | Department | Care Team | Description | +--------+ + + + + | 12/03/ | Abstract | [facility] | Farooq Wesley | | | 2017 | | [facility] | E, DO [address] | | | | | MEDICAL CLINIC [address] | [place], [place] | | | | | [address] [place], | [address] | | | | | [place] [address] | [phone] | | | | | [phone] | | | +--------+ + + + [...] [place] | | | | | | [address] | | | | | | [phone] | | | | | | | [...]
--- OUTSIDE RECORDS SUMMARY | ~2019-02-09 | XMS | Encounter Summary ---
Demographics + + + | Address | [address] | | | [place] [address] | + + + | Home Phone [...] + | Prashanth Vuong | ECON | [address] | | | | | [place] | | | | | [address] | | + + + + + Care Team Providers + +------+ + | Care Clerk Typist Name | Role | Phone | + +------+ + | Farooq Wesley DO | PCP | | + +------+ + Encounter Details +--------+---------+ + + + | Date | Type | Department | Care Team | Description | +--------+---------+ + + + | 02/03/ | Surgery | [facility] | Silvano Kaiser MD | EGD | | 2017 | | MED CTR [facility] INTRA OP | [address], [place] | | | | | [address] | [address] [place], [place] | | | | | [place], [place] | [address] | | | | | [address] | | | | | | [phone] | | | +--------+---------+ + + + [...] mg by mouth | | 0 | 09/12/20 | | | tablet | nightly. | [...] [place] | | | | | | [address] | | | | | | [phone] | | | | | | | [...] [address] | [place] | [phone] | | [facility] | | [address] | | | - LABORATORY | | | | + + + + + EGD (02/03/2017 9:42 AM PST) + + | Specimen | + + | | + + + + -+ | Narrative | Performed At | + + -+ | | [facility] | | GastroenterologyPatient Name: Lita Velazquez Date: | PROVATION | | 02/03/2017 9:42 AMMRN: [id number] #: [id number] of : | | | 1Admit Type: AmbulatoryAge: 76Room: [facility] 01Gender: FemaleNote | | | Status: FinalizedAttending MD: Silvano Kaiser MDProcedure: | | | Upper GI endoscopyIndications: Esophageal | | | dysphagiaProviders: Silvano Kaiser MD, Rosi Perez RN, | | | Amie Fraser, Biscuit Factory Worker, Dash | | | MD Danelle (Anesthesia [...] | | | the anesthesiologist and the parking technician in the endoscopy suite. | | [...] | | 10:05:09 AMScope Out: 10:11:26 AM [facility] | | | [place], [address] [place] [address] | | | - Discharge patient to home (ambulatory). | | | - Mechanical soft diet today. | | | - Continue present medications. | | | - Repeat upper endoscopy PRN for retreatment. | | | - Return to primary care physician as previously scheduled. | | | - Telephone GI clinic if symptomatic. | | |Silvano Kiaser MD | | |02/03/2017 10:23:57 AM | | |This report has been signed electronically. | | |Number of Addenda: 0 | | |Note Initiated On: 02/03/2017 9:42 AM | | |Total Procedure Duration: 0 hours 6 minutes 17 seconds | | |Scope In: 10:05:09 AM | | |Scope Out: 10:11:26 AM | | | [facility], [address] [address], [place], [place] | | | [address] | | + + -+ + +---------+ [...] + | [facility] | [address] | [place] | [phone] | | [facility] | | [address] | | | - LABORATORY | | [...]
--- OUTSIDE RECORDS SUMMARY | ~2019-02-09 | XMS | Encounter Summary ---
Demographics + + + | Address | [address] | | | [place] [address] | + + + | Home Phone | | + + + | Preferred Language | Unknown | + + + | Marital Status | | + + + | Judaism Affiliation | 1028 | + + + | Race | Unknown | + + + | Ethnic Group | Unknown | + + + Author + + + | Author | [facility] | | | and [place] | + + + | Organization | [facility] | | | and [place] | + + + | Address | Unknown | + + + | Phone | Unavailable | + + + Support + + + + + | Name | Relationship | Address | Phone | + + + + + | Prashanth Vuong | ECON | [address] | | | | | [place] | | | | | [address] | | + + + + + Care Team Providers + +------+ + | Care Line Fisher Name | Role | Phone | + +------+ + | Farooq Wesley DO | PCP | | + +------+ + Encounter Details +--------+ + + + + | Date | Type | Department | Care Team | Description | +--------+ + + + + | 02/03/ | Hospital | [facility] | Silvano Kaiser MD | Esophageal dysphagia | | 2017 | Encounter | MED CTR [facility] INTRA OP | [address], [place] | (Primary Dx) | | | | [address] | [address] [place], [place] | | | | | [place], [place] | [address] | | | | | [address] | | | | | | [phone] | | | +--------+ + + + [...] [place] | | | | | | [address] | | | | | | [phone] | | | | | | | [...] [address] | [place] | [phone] | | [facility] | | [address] | | | - LABORATORY | | | | + + + + + EGD (02/03/2017 9:42 AM PST) + + | Specimen | + + | | + + + + -+ | Narrative | Performed At | + + -+ | | [facility] | | GastroenterologyPatient Name: Lita VuongProcedure Date: | PROVATION | | 02/03/2017 9:42 AMMRN: [id number] #: [id number] of : | | | 1940dmit Type: AmbulatoryAge: 76Room: [facility] 01Gender: FemaleNote | | | Status: FinalizedAttending MD: VIN Velasquezrocedure: | | | Upper GI endoscopyIndications: Esophageal | | | dysphagiaProviders: Silvano Kaiser MD, Rosi Perez RN, | | | Amie Fraser, Ship/Rec/Doc Control, Dash | | | MD Danelle (Anesthesia [...] | | | the anesthesiologist and the maintenance mechanic technician in the endoscopy suite. | | [...] | | 10:05:09 AMScope Out: 10:11:26 AM [facility] | | | [place], [address] [place] [address] | | | - Discharge patient to [...] |Scope Out: 10:11:26 AM | | | [facility], [address] [facility], [place] | | | [address] | | + + -+ + +---------+ [...] [address] | [place] | [phone] | | [facility] | | [address] | | | - LABORATORY | | [...]
--- OUTSIDE RECORDS SUMMARY | ~2019-02-09 | XMS | Encounter Summary ---
Demographics + + + | Address | [address] | | | [place] [address] | + + + | Home Phone [...] + | Prashanth Vuong | ECON | [address] | | | | | [place] | | | | | [address] | | + + + + + Care Team Providers + +------+ + | Care Mva Still Operator Name | Role | Phone | [...] + + | 06/07/ | Office | [facility] | Oh Landrum PA | JOSSELINE on CPAP (Primary | | 2013 | Visit | SLEEP DISORDER [address] | [address] | Dx) | | | | [address] [place] | [place] | | | | | [place] [address] | [id number] | | | | | [phone] | | | +--------+---------+ + + + [...] mask obtained from: [facility] [place] pressure is: 5-10 cm 95%: 6.6 cm [...] months, sooner prn. Fifteen minutes were spent [id number], w ith the majority of time spent in counseling. Oh Landrum PA-C cc: Morris Wesley MD Krystyna Tyson, Master of Arts - 06/07/2013 1:36 PM PDTFormatting of this note might be different from the origina l. 06/07/13 1300 [place] Depression Inventory-II Depression Score 6 - Minimal depression Insomnia Severity Index Insomnia Severity Index 13 [place] Sleepiness Scale Sitting and reading 2 Watching [...] MCS 43.96 documented in this enc ounter Plan of [...] [place] | | | | | | [address] | | | | | | [phone] | | | | | | | | +--------+---------+ + + + documented as of this encounter Visit Diagnoses + + | Diagnosis | + + | JOSSELINE on CPAP - Primary Obstructive sleep apnea (adult) (pediatric) | + + documented in this encounter"
--- OUTSIDE RECORDS SUMMARY | ~2019-02-09 | XMS | Encounter Summary ---
Demographics + + + | Address | [address] | | | [place] [address] | + + + | Home Phone [...] + | Prashanth Vuong | ECON | [address] | | | | | [place] | | | | | [address] | | + + + + + Care Team Providers + +------+ + | Care Informatics Pharmacist Name | Role | Phone | + +------+ + | Farooq Wesley DO | PCP | | + +------+ + Encounter Details +--------+ + + + + | Date | Type | Department | Care Team | Description | +--------+ + + + + | 12/04/ | Hospital | [facility] | Damari Pike, | Essential | | 2016 | Encounter | CENTER OUTPATIENT | MD Esvin Barber | hypertension, | | | | WOUND CARE [address] | [place] [address] | hypertension with | | | | [address] [place], [place] | [place] [address] | unspecified goal; | | | | [address] | [phone] | Other specified | | | | [phone] | | hypothyroidism; | | | | | | Diabetes mellitus | | | | | | type 2, controlled | | | | | | ([facility]); Scar | +--------+ + + + + [...] | | | | | | | 3686-8655 MG-UNIT | | | | | | [...] 12/05/15 0844 Encounter Date: 12/05/2015 Status: Signed Change Over: Kym Bunch RN (Registered Nurse) [place] [...] Neuropathy Assessment: See Lower Extremity Assessment Flowsheet Damari Padilla MD - 12/05/2015 8:14 AM PDTFormatting of this note might be different from the o riginal. Progress Notes by Damari Pike MD at 12/05/15 0814 Author: Damari Pike MD Service: (none) Author Type: Physician Filed: 12/05/15 0920 Encounter Date: 12/05/2015 Status: Signed Change Over: Damari Pike MD (Physician) Subjective: [place] [...] [place] | | | | | | [address] | | | | | | [phone] | | | | | | | [...]
--- OUTSIDE RECORDS SUMMARY | ~2019-02-09 | XMS | Encounter Summary ---
Demographics + + + | Address | [address] | | | [place] [address] | + + + | Home Phone [...] + | Prashanth Vuong | ECON | [address] | | | | | [place] | | | | | [address] | | + + + + + Care Team Providers + +------+ + | Care Director Of Career Resources Name | Role | Phone | + +------+ + | Farooq Wesley DO | PCP | | + +------+ + Encounter Details +--------+---------+ + + + | Date | Type | Department | Care Team | Description | +--------+---------+ + + + | 02/03/ | Surgery | [facility] | Silvano Kaiser MD | EGD | | 2017 | | MED CTR MP INTRA OP | [address], [place] | | | | | [address] | [address] [place], [place] | | | | | [place], [place] | [address] | | | | | [address] | | | | | | [phone] | | | +--------+---------+ + + + [...] [place] | | | | | | [address] | | | | | | [phone] | | | | | | | [...] [address] | [place] | [phone] | | [facility] | | [address] | | | - LABORATORY | | | | + + + + + EGD (02/03/2017 9:42 AM PST) + + | Specimen | + + | | + + + + -+ | Narrative | Performed At | + + -+ | | [facility] | | GastroenterologyPatient Name: Lita Velazquez Date: | PROVATION | | 02/03/2017 9:42 AMMRN: [id number] #: [id number] of : | | | 1Admit Type: AmbulatoryAge: 76Room: [facility] 01Gender: FemaleNote | | | Status: FinalizedAttending MD: Silvano Kaiser MDProcedure: | | | Upper GI endoscopyIndications: Esophageal | | | dysphagiaProviders: Silvano Kaiser MD, Rosi Perez RN, | | | Amie Fraser, Certified Pathology Assistant, Dash | | | MD Danelle (Anesthesia [...] | | | the anesthesiologist and the auto electrical technician in the endoscopy suite. | | [...] | | 10:05:09 AMScope Out: 10:11:[address] [facility] | | | [place], [address] [place] [address] | | | - Discharge patient to [...] |Scope Out: 10:11:26 AM | | | [facility], [address], [place], [place] | | | [address] | | + + -+ + +---------+ [...] + | [facility] | [address] | [place] | [phone] | | [facility] | | [address] | | | - LABORATORY | | [...]
--- OUTSIDE RECORDS SUMMARY | ~2019-02-09 | XMS | Encounter Summary ---
Demographics + + + | Address | [address] | | | [place] [address] | + + + | Home Phone | | + + + | Preferred Language | Unknown | + + + | Marital Status | Single | + + + | Zoroastrian Affiliation | Unknown | + + + | Race | Unknown | + + + | Ethnic Group | Other Race | + + + Author + + + | Author | [facility] | + + + | Organization | [facility] | + + + | Address | Unknown | + + + | Phone | Unavailable | + + + Support + + +---------+ + | Name | Relationship | Address | Phone | + + +---------+ + | None None | ECON | Unknown | Unavailable | + + +---------+ + Care Team Providers + +------+ + | Care Sales Marketing Coordinator Name | Role | Phone | [...] of | | 2005 | Visit | [facility] | | Urine (Primary Dx); | | | | [address] | | Urgency of | | | | [address] | | Urination; Urge | | | | [facility] | | Incontinence | | | | [place], [place] | | | | | | [address] | | | | | | [phone] | | | +--------+---------+ + + + [...] | + + +--------+ + + | [place] | Procedures | Routin | Incontinence of [...] + + + | [facility] | [address] | [place], [place] | | | [facility] | [address] | [address] | | | TESTS | | | | + + + + + | [facility] | [address] | [place], [place] | | | TESTS | [facility] | [address] | | + + + + + documented in this encounter Visit Diagnoses + + | Diagnosis | + + | Incontinence of urine - Primary Unspecified urinary incontinence | + + | Urgency of urination | + + | Urge incontinence | + + documented in this encounter
--- OUTSIDE RECORDS SUMMARY | ~2019-02-09 | XMS | Encounter Summary ---
Demographics + + + | Address | [address] | | | [place] [address] | + + + | Home Phone [...] + | Prashanth Vuong | ECON | [address] | | | | | [place] | | | | | [address] | | + + + + + Care Team Providers + +------+ + | Care Architect Marine Name | Role | Phone | + +------+ + PCP | Unavailable | + +------+ + Encounter Details +--------+ + + + + | Date | Type | Department | Care Team | Description | +--------+ + + + + | 11/26/ | Hospital | [facility] | Silvano Kaiser MD | | | 1993 | Encounter | MED CTR GENERIC OP | [address], [place] | | | | | CONV DEPT [address] | [address] [place], [place] | | | | | [place], | [address] | | | | | [place] [address] | | | | | | [phone] | | | +--------+ + + + [...] [place] | | | | | | [address] | | | | | | [phone] | | | | | | | | +--------+---------+ + + + documented as of this encounter Visit Diagnoses Not on filedocumented in this encounter"
--- OUTSIDE RECORDS SUMMARY | ~2019-02-09 | XMS | Encounter Summary ---
Demographics + + + | Address | [address] | | | [place] [address] | + + + | Home Phone | | + + + | Preferred Language | Unknown | + + + | Marital Status | | + + + | Taoist Affiliation | 1028 | + + + | Race | Unknown | + + + | Ethnic Group | Unknown | + + + Author + + + | Author | [facility] | | | and [place] | + + + | Organization | [facility] | | | and [place] | + + + | Address | Unknown | + + + | Phone | Unavailable | + + + Support + + + + + | Name | Relationship | Address | Phone | + + + + + | Prashanth Vuong | ECON | [address] | | | | | [place] | | | | | [address] | | + + + + + Care Team Providers + +------+ + | Care Distribution Agent Name | Role | Phone | [...] | | [address] [place], | [address] | hypertension, | | | | [place] [address] | [phone] | benign; Controlled | | | | [phone] | | type 2 diabetes | | [...] (HCC) - Hemoglobin A1C; Future; Expected date: 08/17/2018 [...] tablet TAKE ONE TABLET BY MOUTH RYLIE (Patient taking differently: Take 0.5 tablets by [...] mood and affect. Entered by Brian Coronado [facility], acting as scribe for Morris Wesley D.O. The documentation recorded by the scribe accurately reflects the service I personally perfo ed and the decisions made by me. documented in this encounter Plan of Treatment +--------+---------+ + + + | Date | Type | Specialty | Care Team | Description | +--------+---------+ + + + | 02/09/ | Office | Primary Care | Farooq Wesley | | | 2018 | Visit | | E, DO [address] | | | | | | [place] | | | | | | [address] | | | | | | [phone] | | | | | | | [...] the | | | | | | [place] Diabetes | | | | | | [...] Testing Performed at: [facility] CLIA: [id number] - [id number] | REFERENCE LAB | | [place] [address] | [facility] | + + + + + + + + | Performing | Address | City/State/Zipcode | Phone Number | | Organization | | | | + + + + + | REFERENCE LAB | [address] | [place] [address] | [phone] | | [facility] | | | | [...] + + | [facility] | [address] | [place] [address] | [phone] | | [facility] | | | [...] | [facility] | | | | mg/dL [id number] - | | HOSPITAL | | | | 129 mg/dL Near | | REGIONAL | | | | [id number] - 159 mg/dL | | MEDICAL | | | | [id number] - 189 | | CENTER LAB | [...] + + | [facility] | [address] | [place] [address] | [phone] | | [facility] | | | [...] + + | [facility] | [address] | [place] [address] | [phone] | | [facility] | | | [...]
--- OUTSIDE RECORDS SUMMARY | ~2019-02-09 | XMS | Encounter Summary ---
Demographics + + + | Address | [address] | | | [place] [address] | + + + | Home Phone | | + + + | Preferred Language | Unknown | + + + | Marital Status | | + + + | Anabaptist Affiliation | 1028 | + + + | Race | Unknown | + + + | Ethnic Group | Unknown | + + + Author + + + | Author | [facility] | | | and [place] | + + + | Organization | [facility] | | | and [place] | + + + | Address | Unknown | + + + | Phone | Unavailable | + + + Support + + + + + | Name | Relationship | Address | Phone | + + + + + | Prashanth Vuong | ECON | [address] | | | | | [place] | | | | | [address] | | + + + + + Care Team Providers + +------+ + | Care Vocational Education Professional Name | Role | Phone | + [...] Diabetes Mellitus | | 2019 | | [facility] | E, DO [address] | Management | | | | MEDICAL [facility] [address] | [place], [place] | | | | | [address] [place], | [address] | | | | | [place] [address] | [phone] | | | | | [phone] | | | +--------+ + + + [...] [place] | | | | | | [address] | | | | | | [phone] | | | | | | | [...]
--- OUTSIDE RECORDS SUMMARY | ~2019-02-09 | XMS | Encounter Summary ---
Demographics + + + | Address | [address] | | | [place] [address] | + + + | Home Phone [...] + | Prashanth Vuong | ECON | [address] | | | | | [place] | | | | | [address] | | + + + + + Care Team Providers + +------+ + | Care Family Consumer Science Teacher Name | Role | Phone | [...] + + | 11/16/ | Telephone | [facility] | Silvano Kaiser MD | Appointment | | 2013 | | GASTROENTEROLOGY | [address], [place] | | | | | [address] [place] | [address] [place], [place] | | | | | [address] [place], [place] | [address] | | | | | [address] | | | | | | [phone] | | | +--------+ + + + [...] [place] | | | | | | [address] | | | | | | [phone] | | | | | | | | +--------+---------+ + + + documented as of this encounter Visit Diagnoses Not on filedocumented in this encounter"
--- OUTSIDE RECORDS SUMMARY | ~2019-02-09 | XMS | Encounter Summary ---
Demographics + + + | Address | [address] | | | [place] [address] | + + + | Home Phone | | + + + | Preferred Language | Unknown | + + + | Marital Status | | + + + | Episcopal Affiliation | 1028 | + + + | Race | Unknown | + + + | Ethnic Group | Unknown | + + + Author + + + | Author | [facility] | | | and [place] | + + + | Organization | [facility] | | | and [place] | + + + | Address | Unknown | + + + | Phone | Unavailable | + + + Support + + + + + | Name | Relationship | Address | Phone | + + + + + | Prashanth Vuong | ECON | [address] | | | | | [place] | | | | | [address] | | + + + + + Care Team Providers + +------+ + | Care Hander In Name | Role | Phone | + +------+ + | Farooq Wesley DO | PCP | | + +------+ + Encounter Details +--------+ + + + + | Date | Type | Department | Care Team | Description | +--------+ + + + + | 12/07/ | Orders Only | [facility] | Farooq Wesley | | | 2017 | | [facility] | E, DO [address] | | | | | MEDICAL CLIN[address] | [place], [place] | | | | | [address] [place], | [address] | | | | | [place] [address] | [phone] | | | | | [phone] | | | +--------+ + + + [...] [place] | | | | | | [address] | | | | | | [phone] | | | | | | | | +--------+---------+ + + + documented as of this encounter Visit Diagnoses Not on filedocumented in this encounter"
--- OUTSIDE RECORDS SUMMARY | ~2019-02-09 | XMS | Encounter Summary ---
Demographics + + + | Address | [address] | | | [place] [address] | + + + | Home Phone | | + + + | Preferred Language | Unknown | + + + | Marital Status | | + + + | Muslim Affiliation | 1028 | + + + | Race | Unknown | + + + | Ethnic Group | Unknown | + + + Author + + + | Author | [facility] | | | and [place] | + + + | Organization | [facility] | | | and [place] | + + + | Address | Unknown | + + + | Phone | Unavailable | + + + Support + + + + + | Name | Relationship | Address | Phone | + + + + + | Prashanth Vuong | ECON | [address] | | | | | [place] | | | | | [address] | | + + + + + Care Team Providers + +------+ + | Care Photoengraving Apprentice Name | Role | Phone | + +------+ + | Farooq Wesley DO | PCP | | + +------+ + Encounter Details +--------+ + + + + | Date | Type | Department | Care Team | Description | +--------+ + + + + | 04/23/ | Anesthesia | [facility] | Virgilio Covarrubias | | | 2019 | Event | MED CTR MP INTRA OP | Todd DIAZ MD [address] | | | | | [address] | [address] [place] | | | | | [place], [place] | [place] [address] | | | | | [address] | [phone] | | | | | [phone] | | | +--------+ + + + [...] 04/23/18 1400 by | | abel | [id number] catheter system; | [facility] | Cecy [...] [place] | | | | | | [address] | | | | | | [phone] | | | | | | | [...]
--- OUTSIDE RECORDS SUMMARY | ~2019-02-09 | XMS | Encounter Summary ---
Demographics + + + | Address | [address] | | | [place] [address] | + + + | Home Phone | | + + + | Preferred Language | Unknown | + + + | Marital Status | | + + + | Samaritan Affiliation | 1028 | + + + [...] + | Prashanth Vuong | ECON | [address] | | | | | [place] | | | | | [address] | | + + + + + Care Team Providers + +------+ + | Care Medical Record Assistant Name | Role | Phone | + +------+ + | Farooq Wesley DO | PCP | | + +------+ + Encounter Details +--------+ + + + + | Date | Type | Department | Care Team | Description | +--------+ + + + + | 03/31/ | Abstract | [facility] | Curt Sandoval, | | | 2012 | | GASTROENTEROLOGY | MD [address] [place] | | | | | [address] [place] | [address] [place], | | | | | [address] [place], [place] | [place] [address] | | | | | [address] | [phone] | | | | | [phone] | | | +--------+ + + + + Social History + +-------+ +--------+------+ | Tobacco Use | Types | Packs/Day | Years | Date | | | | | Used | | + +-------+ +--------+------+ | Unknown If Ever | | | | | | Smoked | | | | | + +-------+ [...] [place] | | | | | | [address] | | | | | | [phone] | | | | | | | | +--------+---------+ + + + documented as of this encounter Visit Diagnoses Not on filedocumented in this encounter"
--- OUTSIDE RECORDS SUMMARY | ~2019-02-09 | XMS | Encounter Summary ---
Demographics + + + | Address | [address] | | | [place] [address] | + + + | Home Phone | | + + + | Preferred Language | Unknown | + + + | Marital Status | | + + + | Adventist Affiliation | 1028 | + + + | Race | Unknown | + + + | Ethnic Group | Unknown | + + + Author + + + | Author | [facility] | | | and [place] | + + + | Organization | [facility] | | | and [place] | + + + | Address | Unknown | + + + | Phone | Unavailable | + + + Support + + + + + | Name | Relationship | Address | Phone | + + + + + | Prashanth Vuong | ECON | [address] | | | | | [place] | | | | | [address] | | + + + + + Care Team Providers + +------+ + | Care Roulette Dealer Name | Role | Phone | [...] Medication Refill | | 2018 | | [facility] | [address] [place] [address] | | | | | MEDICAL CLIN[facility] [address] | [facility], [place] | | | | | [address] [place], | [address] | | | | | [place] [address] | [phone] | | | | | [phone] | | | +--------+--------+ + + + [...] [place] | | | | | | [address] | | | | | | [phone] | | | | | | | | +--------+---------+ + + + documented as of this encounter Visit Diagnoses Not on filedocumented in this encounter"
--- OUTSIDE RECORDS SUMMARY | ~2019-02-09 | XMS | Encounter Summary ---
Demographics + + + | Address | [address] | | | [place] [address] | + + + | Home Phone [...] + | Prashanth Vuong | ECON | [address] | | | | | [place] | | | | | [address] | | + + + + + Care Team Providers + +------+ + | Care Structural Drafter Name | Role | Phone | + [...] | MRI Brain | [place], [place] | [address] | | | | | w wo | [address] | Phone: | | | | | Contrast | Phone: | [phone] | | | | | | [phone] | Fax: | | | | | | Fax: | [phone] | | | | | | [phone] | | +--------+--------+ + + + + [...] consult. Pt reports sharp pains in LEFT taoism x1 | | | month. | + [...] | | [address] [place], | [address] | loss of left eye; | | | | [place] [address] | [phone] | Constipation, | | | | [phone] | | unspecified | | | | [...] this encounter Progress Notes Maria G Burgess, [facility] - 01/12/2018 4:30 PM JESSICASandeepjovitasivakumar Vuong presents today with ief Complaint of: [...] consult. Pt reports sharp pains in LEFT taoism x1 month. Jarada geneva provider on BP readings. Current medications verified [...] per protocol: None. Verbal Report given to: DO. Maria G Jones CC CMA rian Coronado J - 1 4:30 PM PDT Patient ID: [...] Pt reports sharp pains in L EFT taoism x1 month. Hypertension Update provider on BP readings Assessment Visual field defect nasal step, left (Primary) Vision loss of left eye - MRI Brain w wo Contrast; Future; Expected date: 01/12/2018 Constipation, unspecified constipation type Diarrhea, unspecified type Plan -Referral order for MRI of brain sent to [facility] in [place], if you do not hear anythi ng call me -Go to [facility] for Xray, Await report for constipation plan [...] She went to the eye doctor in [place]. She was having trouble with her left eye. The vis ion was blurry, and the eye was tired. She was getting shooting pain on the left taoism. She was unable to see finger counting [...] ONE TABLET BY MOUTH RYLIE RY DAY 90 tablet 3 metoprolol succinate (TOPROL-XL) [...] Procedure: EGD; Surgeon: Silvano Kaiser MD; Location: [facility] UPPER GASTROINTESTINAL ENDOSCOPY N/A 02/03/2017 Procedure: EGD; Surgeon: Silvano Kaiser MD; Location: [facility] Social History Social [...] Hives and Swelling Cefazolin Hives and Rash Pitman Hives and Rash Review of Systems Constitutional: [...] [place] | | | | | | [address] | | | | | | [phone] | | | | | | | [...]
--- OUTSIDE RECORDS SUMMARY | ~2019-02-09 | XMS | Encounter Summary ---
Demographics + + + | Address | [address] | | | [place] [address] | + + + | Home Phone [...] + | Prashanth Vuong | ECON | [address] | | | | | [place] | | | | | [address] | | + + + + + Care Team Providers + +------+ + | Care Training Lead Name | Role | Phone | [...] 2017 | | GASTROENTEROLOGY | [address], [place] | | | | | [address] [place] | [address] [place], [place] | | | | | [address] [place], [place] | [address] | | | | | [address] | | | | | | [phone] | | | +--------+ + + + [...] [place] | | | | | | [address] | | | | | | [phone] | | | | | | | | +--------+---------+ + + + documented as of this encounter Visit Diagnoses Not on filedocumented in this encounter"
--- OUTSIDE RECORDS SUMMARY | ~2019-02-09 | XMS | Encounter Summary ---
Demographics + + + | Address | [address] | | | [place] [address] | + + + | Home Phone [...] Team Providers + +------+ + | Care Publication Manager Name | Role | Phone | [...] [id number] | | | | | | [place], [place] | | | | | | [address] | | | | | | [phone] | | | +--------+ + + + [...]
--- OUTSIDE RECORDS SUMMARY | ~2019-02-09 | XMS | Encounter Summary ---
Demographics + + + | Address | [address] | | | [place] [address] | + + + | Home Phone | | + + + | Preferred Language | Unknown | + + + | Marital Status | | + + + | Yarsanism Affiliation | 1028 | + + + [...] + | Prashanth Vuong | ECON | [address] | | | | | [place] | | | | | [address] | | + + + + + Care Team Providers + +------+ + | Care Appliance Tester Name | Role | Phone | [...] Gastroesopha | [address], | | | | | geal reflux | [address], [place] | [place] [address] | | | | | disease, | [address] [place], | | | | | esophagitis | [place], [place] | [place] [address] | | | | | presence not | [address] | Phone: | | | | | specified | Phone: | [phone] | | | | | Dysphagia, | [phone] | Fax: | | | | | unspecified | Fax: | [phone] | | | | | type | [phone] | | | | | | Procedures | | | | | | | PA | | | | | | | ESOPHAGOGAST | | | | | | | RODUODENOSCO | | | | | | | PY TRANSORAL | | | | | | | DIAGNOSTIC | | | | | | | PA EGD | | | | | | [...] + + | 02/28/ | Telephone | [facility] | Silvano Kaiser MD | Appointment (EGD) | | 2016 | | GASTROENTEROLOGY | [address], [place] | | | | | [address] | [address] [place], [place] | | | | | 210 [place], [place] | [address] | | | | | [address] | | | | | | [phone] | | | +--------+ + + + [...] [place] | | | | | | [address] | | | | | | [phone] | | | | | | | | +--------+---------+ + + + + + +--------+ + + | Name | Type | Priori | Associated Diagnoses | Order Schedule | | | | ty | | | + + +--------+ + + | Procedure | Outpatient | Routin | Gastroesophageal | Expected: 03/05/2016 | | [id number] | Referral | e | Reflux Disease, [...]
--- OUTSIDE RECORDS SUMMARY | ~2019-02-09 | XMS | Encounter Summary ---
Demographics + + + | Address | [address] | | | [place] [address] | + + + | Home Phone [...] + | Prashanth Vuong | ECON | [address] | | | | | [place] | | | | | [address] | | + + + + + Care Team Providers + +------+ + | Care Central Services Tech Name | Role | Phone | [...] | | | | [address] [facility] | | | | | | [address] [place] | | | | | | [address] | | | | | | [phone] | | | +--------+ + + + [...] [place] | | | | | | [address] | | | | | | [phone] | | | | | | | | +--------+---------+ + + + documented as of this encounter Visit Diagnoses Not on filedocumented in this encounter"
--- OUTSIDE RECORDS SUMMARY | ~2019-02-09 | XMS | Encounter Summary ---
Demographics + + + | Address | [address] | | | [place] [address] | + + + | Home Phone | | + + + | Preferred Language | Unknown | + + + | Marital Status | | + + + | Congregation Affiliation | 1028 | + + + | Race | Unknown | + + + | Ethnic Group | Unknown | + + + Author + + + | Author | [facility] | | | and [place] | + + + | Organization | [facility] | | | and [place] | + + + | Address | Unknown | + + + | Phone | Unavailable | + + + Support + + + + + | Name | Relationship | Address | Phone | + + + + + | Prashanth Vuong | ECON | [address] | | | | | [place] | | | | | [address] | | + + + + + Care Team Providers + +------+ + | Care Business Development Engineer Name | Role | Phone | [...] Medication Refill | | 2017 | | [facility] | [facility] | | | | | MEDICAL CLIN[address] | | | | | | [address] [facility], | | | | | | [place] [address] | | | | | | [phone] | | | +--------+--------+ + + + [...] [place] | | | | | | [address] | | | | | | [phone] | | | | | | | | +--------+---------+ + + + documented as of this encounter Visit Diagnoses Not on filedocumented in this encounter"
--- OUTSIDE RECORDS SUMMARY | ~2019-02-09 | XMS | Encounter Summary ---
Demographics + + + | Address | [address] | | | [place] [address] | + + + | Home Phone | | + + + | Preferred Language | Unknown | + + + | Marital Status | | + + + | Anabaptism Affiliation | 1028 | + + + | Race | Unknown | + + + | Ethnic Group | Unknown | + + + Author + + + | Author | [facility] | | | and [place] | + + + | Organization | [facility] | | | and [place] | + + + | Address | Unknown | + + + | Phone | Unavailable | + + + Support + + + + + | Name | Relationship | Address | Phone | + + + + + | Prashanth Vuong | ECON | [address] | | | | | [place] | | | | | [address] | | + + + + + Care Team Providers + +------+ + | Care Hydration Plant Operator Name | Role | Phone | [...] + + | 05/03/ | Telephone | [facility] | Silvano Kaiser MD | Results, Pathology | | 2019 | | GASTROENTEROLOGY | [address], [place] | (egd,colon) | | | | [address] [place] | [address] [place], [place] | | | | | [address] [place] | [address] | | | | | [address] | | | | | | [phone] | | | +--------+ + + + [...] [place] | | | | | | [address] | | | | | | [phone] | | | | | | | | +--------+---------+ + + + documented as of this encounter Visit Diagnoses Not on filedocumented in this encounter"
--- OUTSIDE RECORDS SUMMARY | ~2019-02-09 | XMS | Encounter Summary ---
Demographics + + + | Address | [address] | | | [place] [address] | + + + | Home Phone | | + + + | Preferred Language | Unknown | + + + | Marital Status | | + + + | Uatsdin Affiliation | 1028 | + + + | Race | Unknown | + + + | Ethnic Group | Unknown | + + + Author + + + | Author | [facility] | | | and [place] | + + + | Organization | [facility] | | | and [place] | + + + | Address | Unknown | + + + | Phone | Unavailable | + + + Support + + + + + | Name | Relationship | Address | Phone | + + + + + | Prashanth Vuong | ECON | [address] | | | | | [place] | | | | | [address] | | + + + + + Care Team Providers + +------+ + | Care Lottery Clerk Name | Role | Phone | + +------+ + | Farooq Wesley DO | PCP | | + +------+ + Encounter Details +--------+ + + + + | Date | Type | Department | Care Team | Description | +--------+ + + + + | 03/04/ | Abstract | [facility] | Silvano Kaiser MD | | | 2015 | | GASTROENTEROLOGY | [address], [place] | | | | | [address] [place] | [address] [place], [place] | | | | | [address] [place], [place] | [address] | | | | | [address] | | | | | | [phone] | | | +--------+ + + + [...] + + + + | Weight | 77.1 kg (170 lb) | 03/04/2016 12:08 PM | | | | | PST | | + + + + + | Height | 153.7 cm (5' 0.5") | 03/04/2016 12:08 PM | | | | | PST | | + + + + + | Body Mass Index | 32.65 | 03/04/2016 12:08 PM | | | | | PST [...] [place] | | | | | | [address] | | | | | | [phone] | | | | | | | | +--------+---------+ + + + documented as of this encounter Visit Diagnoses Not on filedocumented in this encounter
--- OUTSIDE RECORDS SUMMARY | ~2019-02-09 | XMS | Encounter Summary ---
Demographics + + + | Address | [address] | | | [place] [address] | + + + | Home Phone | | + + + | Preferred Language | Unknown | + + + | Marital Status | | + + + | Evangelical Affiliation | 1028 | + + + | Race | Unknown | + + + | Ethnic Group | Unknown | + + + Author + + + | Author | [facility] | | | and [place] | + + + | Organization | [facility] | | | and [place] | + + + | Address | Unknown | + + + | Phone | Unavailable | + + + Support + + + + + | Name | Relationship | Address | Phone | + + + + + | Prashanth Vuong | ECON | [address] | | | | | [place] | | | | | [address] | | + + + + + Care Team Providers + +------+ + | Care Pipe Supervisor Name | Role | Phone | [...] unspecified | | 2019 | Visit | [facility] | E, DO [address] | type (Primary Dx); | | | | [facility] | [place], [place] | Essential | | | | [address] [place], | [address] | hypertension, | | | | [place] [address] | [phone] | benign; Controlled | | | | [phone] | | type 2 diabetes | | [...] mood and affect. Entered by Brian Coronado [facility], acting as scribe for Morris Wesley [...] [place] | | | | | | [address] | | | | | | [phone] | | | | | | | [...] the | | | | | | Equ[place] Diabetes | | | | | | [...] Testing Performed at: [facility] [place] [facility] CLIA: [id number] - [id number] | REFERENCE LAB | | [place] [address] | [facility] | + + + + + + + + | Performing | Address | City/State/Zipcode | Phone Number | | Organization | | | | + + + + + | REFERENCE LAB | [address] | [place] [address] | [phone] | | [facility] | | | | [...] + + | [place] [facility] | [address] | [place] [address] | [phone] | | [facility] | | | [...] | [facility] | | | | mg/dL [id number] - | | HOSPITAL | | | | 129 mg/dL Near | | REGIONAL | | | | [id number] - 159 mg/dL | | MEDICAL | | | | [id number] - 189 | | CENTER LAB | [...] + + | [place] [facility] | [address] | [place] [address] | [phone] | | [facility] | | | [...] + + | [facility] | [address] | [place] [address] | [phone] | | [facility] | | | [...]
--- OUTSIDE RECORDS SUMMARY | ~2019-02-09 | XMS | Encounter Summary ---
Demographics + + + | Address | [address] | | | [place] [address] | + + + | Home Phone | | + + + | Preferred Language | Unknown | + + + | Marital Status | | + + + | Orthodox Affiliation | 1028 | + + [...] + + + + + | Prashanth Voung | ECON | [address] | | | | | [place] | | | | | [address] | | + + + + + Care Team Providers + +------+ + | Care Prenatal Nurse Name | Role | Phone | + [...] | | | MEDICAL CL[facility] [address] | [place], [place] | | | | | [address] [place], | [address] | | | | | [place] [address] | [phone] | | | | | [phone] | | | +--------+ + + + [...] [place] | | | | | | [address] | | | | | | [phone] | | | | | | | [...] the | | | | | | Mong[place] Diabetes | | | | | | [...] Testing Performed at: [facility] CLIA: [id number] - 7968 | REFERENCE LAB | | [place] [address] | [facility] | + + + + + + + + | Performing | Address | City/State/Zipcode | Phone Number | | Organization | | | | + + + + + | REFERENCE LAB | [facility] | [place] [address] | [phone] | | [facility] | | | | [...] Testing Performed at: [facility] CLIA: [id number] - [address] | REFERENCE LAB | | [place] [address] | [facility] | + + + + + + + + | Performing | Address | City/State/Zipcode | Phone Number | | Organization | | | | + + + + + | REFERENCE LAB | [facility] | [place] [address] | [phone] | | [facility] | | | | + + + + + documented in this encounter Visit Diagnoses Not on filedocumented in this encounter"
--- OUTSIDE RECORDS SUMMARY | ~2019-02-09 | XMS | Encounter Summary ---
Demographics + + + | Address | [address] | | | [place] [address] | + + + | Home Phone [...] + | Prashanth Vuong | ECON | [address] | | | | | [place] | | | | | [address] | | + + + + + Care Team Providers + +------+ + | Care Manager Of Pharmacy Name | Role | Phone | + [...] + + | 06/07/ | Office | [facility] | Oh Landrum PA | JOSSELINE on CPAP (Primary | | 2013 | Visit | SLEEP DISORDER 401 | [address] | Dx) | | | | [address] [place] [place] | [place] | | | | | [place] [address] | [id number] | | | | | [phone] | | | +--------+---------+ + + + [...] mask obtained from: [facility] [place] pressure is: 5-10 cm 95%: 6.6 cm [...] months, sooner prn. Fifteen minutes were spent [id number], w ith the majority of time spent in counseling. Oh Landrum PA-C cc: Morris Wesley MD Krystyna Tyson, Master of Arts - 06/07/2013 1:36 PM PDTFormatting of this note might be different from the origina l. 06/07/13 1300 Bucio Depression Inventory-II Depression Score 6 - Minimal depression Insomnia Severity Index Insomnia Severity Index 13 Makinen Sleepiness Scale Sitting and reading 2 Watching [...] [place] | | | | | | [address] | | | | | | [phone] | | | | | | | | +--------+---------+ + + + documented as of this encounter Visit Diagnoses + + | Diagnosis | + + | JOSSELINE on CPAP - Primary Obstructive sleep apnea (adult) (pediatric) | + + documented in this encounter"
--- OUTSIDE RECORDS SUMMARY | ~2019-02-09 | XMS | Encounter Summary ---
Demographics + + + | Address | [address] | | | [place] [address] | + + + | Home Phone [...] + | Prashanth Vuong | ECON | [address] | | | | | [place] | | | | | [address] | | + + + + + Care Team Providers + +------+ + | Care Industrial Economics Teacher Name | Role | Phone | [...] | DO [address] | [address], | | | | | Esophageal | [address] [place] | [address] | | | | | obstruction | [place], [place] | [place], | | | | | Procedures | [address] | [place] [address] | | | | | OFFICE | Phone: | Phone: | | | | | VISIT/EGD | [phone] | [phone] | | | | | | Fax: | Fax: | | | | | | [phone] | [phone] | +--------+--------+ + + + + Encounter Details +--------+---------+ + + + | Date | Type | Department | Care Team | Description | +--------+---------+ + + + | 04/14/ | Office | [facility] | Silvano Kaiser MD | Esophageal dysphagia | | 2019 | Visit | GASTROENTEROLOGY | [address], [place] | (Primary Dx); | | | | [address] [place] | [address] [place], [place] | Change in bowel | | | | [address] [place], [place] | [address] | habits | | | | [address] | | | | | | [phone] | | | +--------+---------+ + + + [...] [place] | | | | | | [address] | | | | | | [phone] | | | | | | | | +--------+---------+ + + + documented as of this encounter Visit Diagnoses + + | Diagnosis | + + | Esophageal dysphagia - Primary Dysphagia, pharyngoesophageal phase | + + | Change in bowel habits Other symptoms involving digestive system | + + documented in this encounter"
--- OUTSIDE RECORDS SUMMARY | ~2019-02-09 | XMS | Encounter Summary ---
Demographics + + + | Address | [address] | | | [place] [address] | + + + | Home Phone [...] + | Prashanth Vuong | ECON | [address] | | | | | [place] | | | | | [address] | | + + + + + Care Team Providers + +------+ + | Care Animal Anatomist Name | Role | Phone | + +------+ + PCP | Unavailable | + +------+ + Encounter Details +--------+ + + + + | Date | Type | Department | Care Team | Description | +--------+ + + + + | 06/09/ | Hospital | [facility] | Adalberto Bradley MD | | | 2006 - | Encounter | SURGICAL [address] | [address] | | | | | [place], | [address] | | | 06/12/ | | [place] [address] | [place] [address] | | | 2006 | | [phone] | [phone] | | | | | | | [...] [place] | | | | | | [address] | | | | | | [phone] | | | | | | | | +--------+---------+ + + + documented as of this encounter Visit Diagnoses Not on filedocumented in this encounter"
--- OUTSIDE RECORDS SUMMARY | ~2019-02-09 | XMS | Encounter Summary ---
Demographics + + + | Address | [address] | | | [place] [address] | + + + | Home Phone [...] + | Prashanth Vuong | ECON | [address] | | | | | [place] | | | | | [address] | | + + + + + Care Team Providers + +------+ + | Care Loom Technician Name | Role | Phone | [...] hand, | | 2018 | Visit | [facility] | Ilene, HAT MODEL [address] | right, initial | | | | MEDICAL CLINIC [address] | [address] [place] | encounter (Primary | | | | [address] [place], | [place] [address] | Dx); Cellulitis of | | | | [place] [address] | [phone] | hand, right | | | | [phone] | | | +--------+---------+ + + + [...] documented in this encounter Progress Notes Ilene Hopper FNP - 12/23/2018 10:00 AM PDTFormatting of this [...] cervical Diffuse esophageal spasm DM (diabetes mellitus) ([facility]) Dyskinesia of esophagus Dyslipidemia Dysphagia Esophageal reflux [...] Hives and Swelling Cefazolin Hives and Rash Dows Hives and Rash Electronically signed by FLORES Rankin 12/24/2018 07:27 Note: Part of this report was transcribed using voice recognition software. Every effort wa s made to ensure accuracy. However, inadvertent computerized admitting clerk errors may be pre sent documented i [...] [place] | | | | | | [address] | | | | | | [phone] | | | | | | | [...] + + | [facility] | [address] | [place] [address] | [phone] | | HOSPITAL [facility] | | | [...]
--- OUTSIDE RECORDS SUMMARY | ~2019-02-09 | XMS | Encounter Summary ---
Demographics + + + | Address | [address] | | | [place] [address] | + + + | Home Phone [...] + | Prashanth Vuong | ECON | [address] | | | | | [place] | | | | | [address] | | + + + + + Care Team Providers + +------+ + | Care Meter Tester Primary Name | Role | Phone | + +------+ + PCP | Unavailable | + +------+ + Encounter Details +--------+ + + + + | Date | Type | Department | Care Team | Description | +--------+ + + + + | 11/17/ | Hospital | [facility] | Silvano Kaiser MD | | | 2001 | Encounter | MED CTR GENERIC OP | [address] [place] | | | | | CONV DEPT [address] | [address] [place], [place] | | | | | [place], | [address] | | | | | [place] [address] | | | | | | [phone] | | | +--------+ + + + [...] [place] | | | | | | [address] | | | | | | [phone] | | | | | | | | +--------+---------+ + + + documented as of this encounter Visit Diagnoses Not on filedocumented in this encounter"
--- OUTSIDE RECORDS SUMMARY | ~2019-02-09 | XMS | Encounter Summary ---
Demographics + + + | Address | [address] | | | [place] [address] | + + + | Home Phone [...] + | Prashanth Vuong | ECON | [address] | | | | | [place] | | | | | [address] | | + + + + + Care Team Providers + +------+ + | Care Field Marketing Specialist Name | Role | Phone | [...] Other (mychart | | 2018 | | [facility] | E, DO [address] | message) | | | | MEDICAL CLINIC [address] | [place], [place] | | | | | [place], | [address] | | | | | [place] [address] | [phone] | | | | | [phone] | | | +--------+ + + + [...] [place] | | | | | | [address] | | | | | | [phone] | | | | | | | | +--------+---------+ + + + documented as of this encounter Visit Diagnoses Not on filedocumented in this encounter"
--- OUTSIDE RECORDS SUMMARY | ~2019-02-09 | XMS | Encounter Summary ---
Demographics + + + | Address | [address] | | | [place] [address] | + + + | Home Phone [...] + | Prashanth Vuong | ECON | [address] | | | | | [place] | | | | | [address] | | + + + + + Care Team Providers + +------+ + | Care Home Organizer Name | Role | Phone | + [...] | | GASTROENTEROLOGY | MD [address] [place] | | | | | [address] [place] | [address] [place], | | | | | [address] [place], [place] | [place] [address] | | | | | [address] | [phone] | | | | | [phone] | | | +--------+ + + + [...] [place] | | | | | | [address] | | | | | | [phone] | | | | | | | | +--------+---------+ + + + documented as of this encounter Visit Diagnoses Not on filedocumented in this encounter"
--- OUTSIDE RECORDS SUMMARY | ~2019-02-09 | XMS | Encounter Summary ---
Demographics + + + | Address | [address] | | | [place] [address] | + + + | Home Phone [...] + | Prashanth Vuong | ECON | [address] | | | | | [place] | | | | | [address] | | + + + + + Care Team Providers + +------+ + | Care Developer Trading Systems Name | Role | Phone | + [...] + + | 03/05/ | Office | [facility] | Oh Landrum PA | JOSSELINE on CPAP (Primary | | 2011 | Visit | SLEEP DISORDER [address] | [address] | Dx) | | | | [address] [place] | [place] | | | | | [place] [address] | [id number] | | | | | [phone] | | | +--------+---------+ + + + [...] mask obtained from: [facility] [place] pressure is: 5-10 cm 95%: 7.0 cm [...] months, sooner prn. Thirty minutes were spent [id number], wi th the majority of time spent in counseling. Oh [place] PA-C cc: Morris Wesley MD Krystyna Schuler - 2011 10:45 AM PST 03/05/12 1000 Bucio Depression Inventory-II Depression Score 11 Insomnia Severity Index Insomnia Severity Index 19 Maben Sleepiness Scale Sitting and reading 2 Watching [...] MCS 36.25 documented in this enc ounter Plan of [...] [place] | | | | | | [address] | | | | | | [phone] | | | | | | | | +--------+---------+ + + + documented as of this encounter Visit Diagnoses + + | Diagnosis | + + | JOSSELINE on CPAP - Primary Obstructive sleep apnea (adult) (pediatric) | + + documented in this encounter"
--- OUTSIDE RECORDS SUMMARY | ~2019-02-09 | XMS | Encounter Summary ---
Demographics + + + | Address | [address] | | | [place] [address] | + + + | Home Phone [...] + | Prashanth Vuong | ECON | [address] | | | | | [place] | | | | | [address] | | + + + + + Care Team Providers + +------+ + | Care Rod Machine Operator Name | Role | Phone [...] Essential | | 2019 | Visit | [facility] | E, DO [address] | hypertension, benign | | | | MEDICAL CLINIC [address] | [place], [place] | (Primary Dx); | | | | [address] [place], | [address] | Bradycardia | | | | [place] [address] | [phone] | | | | | [phone] | | | +--------+---------+ + + + [...] this encounter Progress Notes Farooq Wesley, - 09/28/2018 1:20 PM PDT Patient ID: [...] Procedure: COLONOSCOPY; Surgeon: Silvano Kaiser MD; Location: [facility] ESOPHAGEAL DILATATION 2012 Dr. Kaiser HYSTERECTOMY THYROID SURGERY hemithyroidectomy - right TOTAL KNEE ARTHROPLASTY May, right, partial UPPER GASTROINTESTINAL ENDOSCOPY 10/25/12 next due 10/2013 UPPER GASTROINTESTINAL ENDOSCOPY N/A 03/05/2016 Procedure: EGD; Surgeon: Silvano Kaiser MD; Location: [facility] UPPER GASTROINTESTINAL ENDOSCOPY N/A 02/03/2017 Procedure: EGD; Surgeon: Silvano Kaiser MD; Location: [facility] UPPER GASTROINTESTINAL ENDOSCOPY N/A 04/23/2018 Procedure: EGD; Surgeon: Silvano Kaiser MD; Location: [facility] Social History Socioeconomic [...] Hives and Swelling Cefazolin Hives and Rash [place] Hives and Rash Review of Systems Constitutional: [...] normal. Entered by Mercedes See CNA 2, [facility], acting as scribe for Dr. Maryjane DO The documentation recorded by the scribe accurately reflects the service I personally perfo rmed and the decisions made by me. Electronically [...] [place] | | | | | | [address] | | | | | | [phone] | | | | | | | | +--------+---------+ + + + documented as of this encounter Visit Diagnoses + + | Diagnosis | + + | Essential hypertension, benign - Primary | + + | Bradycardia Other specified cardiac dysrhythmias | + + documented in this encounter
--- OUTSIDE RECORDS SUMMARY | ~2019-02-09 | XMS | Clinical Summary ---
Demographics + + + | Address | [address] | | | [place] [address] | + + + | Home Phone | | + + + | Preferred Language | Unknown | + + + | Marital Status | Single | + + + | Taoist Affiliation | Unknown | + + + [...] Team Providers + +------+ + | Care Signaling Design Engineer Name | Role | Phone | + +------+ + | Farooq Wesley DO | PCP | | + +------+ + Source Comments [facility]SCAR is fully live on both [facility] and [facility] In[facility] Allergies + + + + [...] | | | | | | | [address] | | + +--------+ +--------+ + +--------+ | [employer]ARE | MODA | xxxxxxxxx | 03/12/ | [phone] | [address] | [address] | | SUPPLEMENT | MEDICA | | 2015-P | 4 | [id number] | | | | RE | | resent | | [place], | | | | SUPPLE | | | | [place] [address] | | | | MENT | | [...] Person | Self | [birth year] | [address] | | | al/Fam | | 1941 | [phone] | [address] [place] | | | katina | | | 3 (Home) | [address] | + +--------+ +--------+ + +
--- OUTSIDE RECORDS SUMMARY | ~2019-02-09 | XMS | Encounter Summary ---
Demographics + + + | Address | [address] | | | [place] [address] | + + + | Home Phone | | + + + | Preferred Language | Unknown | + + + | Marital Status | | + + + | Hindu Affiliation | 1028 | + + + [...] + | Prashanth Vuong | ECON | [address] | | | | | [place] | | | | | [address] | | + + + + + Care Team Providers + +------+ + | Care Technical Applications Specialist Name | Role | Phone | [...] | | | [place] | [place] | [address] | | | | | | [address] | Phone: | | | | | | Phone: | [phone] | | | | | | [phone] | Fax: | | | | | | Fax: | [phone] | | | | | | [phone] | | +--------+--------+ + + + + [...] | | | [place] | [address] | | | | | [address] | [phone] | | | | | [phone] | | | +--------+ + + + [...] days. Elsy pinto will mail recorder to [employer] when done to be scanned.Electronically messi d [...] [place] | | | | | | [address] | | | | | | [phone] | | | | | | | [...]
--- OUTSIDE RECORDS SUMMARY | ~2019-02-09 | XMS | Encounter Summary ---
Demographics + + + | Address | [address] | | | [place] [address] | + + + | Home Phone [...] + | Prashanth Vuong | ECON | [address] | | | | | [place] | | | | | [address] | | + + + + + Care Team Providers + +------+ + | Care Trailer Rental Clerk Name | Role | Phone | [...] Essential | | 2019 | Visit | [facility] | E, DO [address] | hypertension, benign | | | | MEDICAL CLINIC [address] | [place], [place] | (Primary Dx); | | | | [address] [place], | [address] | Bradycardia | | | | [place] [address] | [phone] | | | | | [phone] | | | +--------+---------+ + + + [...] Procedure: COLONOSCOPY; Surgeon: Silvano Kaiser MD; Location: [facility] MEDICAL PROCEDURE UNIT ESOPHAGEAL DILATATION 2012 Dr. Kaiser HYSTERECTOMY THYROID SURGERY hemithyroidectomy - right TOTAL KNEE ARTHROPLASTY May, right, partial UPPER GASTROINTESTINAL ENDOSCOPY 10/25/12 next due 10/2013 UPPER GASTROINTESTINAL ENDOSCOPY N/A 03/05/2016 Procedure: EGD; Surgeon: Silvano Kaiser MD; Location: [facility] MEDICAL PROCEDURE UNIT UPPER GASTROINTESTINAL ENDOSCOPY N/A 02/03/2017 Procedure: EGD; Surgeon: Silvano Kaiser MD; Location: [facility] MEDICAL PROCEDURE UNIT UPPER GASTROINTESTINAL ENDOSCOPY N/A 04/23/2018 Procedure: EGD; Surgeon: Silvano Kaiser MD; Location: [facility] Social History [...] Hives and Swelling Cefazolin Hives and Rash [place] Hives and Rash Review of Systems Constitutional: [...] normal. Entered by Mercedes See CNA 2, [facility], acting as scribe for Dr. Maryjane [...] [place] | | | | | | [address] | | | | | | [phone] | | | | | | | | +--------+---------+ + + + documented as of this encounter Visit Diagnoses + + | Diagnosis | + + | Essential hypertension, benign - Primary | + + | Bradycardia Other specified cardiac dysrhythmias | + + documented in this encounter
--- OUTSIDE RECORDS SUMMARY | ~2019-02-09 | XMS | Encounter Summary ---
Demographics + + + | Address | [address] | | | [place] [address] | + + + | Home Phone [...] + | Prashanth Vuong | ECON | [address] | | | | | [place] | | | | | [address] | | + + + + + Care Team Providers + +------+ + | Care Health Services Coordinator Name | Role | Phone | + +------+ + PCP | Unavailable | + +------+ + Encounter Details +--------+ + + + + | Date | Type | Department | Care Team | Description | +--------+ + + + + | 03/05/ | Hospital | [facility] | Silvano Kaiser MD | | | 1997 | Encounter | MED CTR XRAY [address] | [address] [place] | | | | | [place] | [address] [place] | | | | | [place] [address] | [address] | | | | | [phone] | | | +--------+ + + + [...] [place] | | | | | | [address] | | | | | | [phone] | | | | | | | | +--------+---------+ + + + documented as of this encounter Visit Diagnoses Not on filedocumented in this encounter"
--- OUTSIDE RECORDS SUMMARY | ~2019-02-09 | XMS | Encounter Summary ---
Demographics + + + | Address | [address] | | | [place] [address] | + + + | Home Phone | | + + + | Preferred Language | Unknown | + + + | Marital Status | | + + + | Judaism Affiliation | 1028 | + + + | Race | Unknown | + + + | Ethnic Group | Unknown | + + + Author + + + | Author | [facility] | | | and [place] | + + + | Organization | [facility] | | | and [place] | + + + | Address | Unknown | + + + | Phone | Unavailable | + + + Support + + + + + | Name | Relationship | Address | Phone | + + + + + | Prashanth Vuong | ECON | [address] | | | | | [place] | | | | | [address] | | + + + + + Care Team Providers + +------+ + | Care Television Writer Name | Role | Phone | + +------+ + | Farooq Wesley DO | PCP | | + +------+ + Encounter Details +--------+ + + + + | Date | Type | Department | Care Team | Description | +--------+ + + + + | 10/25/ | Hospital | [facility] | Silvano Kaiser MD | | | 2013 - | Encounter | MED CTR MP INTRA OP | [address], [place] | | | | | [address] | [address] [place], [place] | | | 10/26/ | | [place] | [address] | | | 2012 | | [address] | | | | | | [phone] | | | +--------+ + + + [...] [place] | | | | | | [address] | | | | | | [phone] | | | | | | | | +--------+---------+ + + + documented as of this encounter Visit Diagnoses Not on filedocumented in this encounter"
--- OUTSIDE RECORDS SUMMARY | ~2019-02-09 | XMS | Encounter Summary ---
Demographics + + + | Address | [address] | | | [place] [address] | + + + | Home Phone [...] + | Prashanth Vuong | ECON | [address] | | | | | [place] | | | | | [address] | | + + + + + Care Team Providers + +------+ + | Care Core Mounter Name | Role | Phone | + [...] + + | 09/20/ | [facility] | Silvano Kaiser MD | Dysphagia, | | 2012 | Visit | GASTROENTEROLOGY | [address], [place] | unspecified (Primary | | | | [address] [place] | [address] [place], [place] | Dx); Diaphragmatic | | | | [address] [place], [place] | [address] | hernia without | | | | [address] | | mention of | | | | [phone] | | obstruction or | | | [...] hiatal hernia which was dilated to 60 B[place]ian. Wi th resolution of symptoms of xiphoid [...] weeks post surgery last year. Evaluation at [facility] was negative for any cause of the same . The patient had a video esophagram at [facility] with speech pathology result s are unclear. [...] proceed to get the esophagram results from [facility]. Patient may be a candidate for upper [...] [place] | | | | | | [address] | | | | | | [phone] | | | | | | | [...]
--- OUTSIDE RECORDS SUMMARY | ~2019-02-09 | XMS | Encounter Summary ---
Demographics + + + | Address | [address] | | | [place] [address] | + + + | Home Phone | | + + + | Preferred Language | Unknown | + + + | Marital Status | Single | + + + | Pentecostalism Affiliation | Unknown | + + + | Race | Unknown | + + + | Ethnic Group | Other Race | + + + Author + + + | Author | [facility] | + + + | Organization | [facility] | + + + | Address | Unknown | + + + | Phone | Unavailable | + + + Support + + +---------+ + | Name | Relationship | Address | Phone | + + +---------+ + | None None | ECON | Unknown | Unavailable | + + +---------+ + Care Team Providers + +------+ + | Care Jordan Worker Name | Role | Phone | [...] | 2005 | Visit | [facility] | | Urine (Primary Dx); | | | | [address] | | Urgency of | | | | [address] | | Urination; Urge | | | | [address] | | Incontinence | | | | [place], [place] | | | | | | [address] | | | | | | [phone] | | | +--------+---------+ + + + [...] | + + +--------+ + + | NE | Procedures | Routin | Incontinence of [...] [facility] | | | N | | YAENLY UNITS | OF CARE | | | [...] JUAN ANTONIO | [address] | [place], [place] | | | [facility] | [address] | [address] | | | TESTS | | | | + + + + + | [facility] | [address] | [place], [place] | | | TESTS | [facility] | [address] | | + + + + + documented in this encounter Visit Diagnoses + + | Diagnosis | + + | Incontinence of urine - Primary Unspecified urinary incontinence | + + | Urgency of urination | + + | Urge incontinence | + + documented in this encounter
--- OUTSIDE RECORDS SUMMARY | ~2019-02-09 | XMS | Encounter Summary ---
Demographics + + + | Address | [address] | | | [place] [address] | + + + | Home Phone [...] + | Prashanth Vuong | ECON | [address] | | | | | [place] | | | | | [address] | | + + + + + Care Team Providers + +------+ + | Care Air Traffic Supervisor Name | Role | Phone | + +------+ + PCP | Unavailable | + +------+ + Encounter Details +--------+ + + + + | Date | Type | Department | Care Team | Description | +--------+ + + + + | 03/13/ | Hospital | [facility] | Silvano Kaiser MD | | | 1997 | Encounter | MED CTR XRAY [address] | [address], [place] | | | | | [place] | [address] [place] | | | | | [place] [address] | [address] | | | | | [phone] | | | +--------+ + + + [...] [place] | | | | | | [address] | | | | | | [phone] | | | | | | | | +--------+---------+ + + + documented as of this encounter Visit Diagnoses Not on filedocumented in this encounter"
--- OUTSIDE RECORDS SUMMARY | ~2019-02-09 | XMS | Encounter Summary ---
Demographics + + + | Address | [address] | | | [place] [address] | + + + | Home Phone | | + + + | Preferred Language | Unknown | + + + | Marital Status | | + + + | Worship Affiliation | 1028 | + + + | Race | Unknown | + + + | Ethnic Group | Unknown | + + + Author + + + | Author | [facility] | | | and [place] | + + + | Organization | [facility] | | | and [place] | + + + | Address | Unknown | + + + | Phone | Unavailable | + + + Support + + + + + | Name | Relationship | Address | Phone | + + + + + | Prashanth Vuong | ECON | [address] | | | | | [place] | | | | | [address] | | + + + + + Care Team Providers + +------+ + | Care Technology Instructor Name | Role | Phone | + +------+ + PCP | Unavailable | + +------+ + Encounter Details +--------+ + + + + | Date | Type | Department | Care Team | Description | +--------+ + + + + | 01/16/ | Hospital | [facility] | Silvano Kaiser MD | | | 1997 | Encounter | MED CTR GENERIC OP | [address] [place], [place] | | | | | CONV DEPT [address] | [address] [place], [place] | | | | | [place], | [address] | | | | | [place] [address] | | | | | | [phone] | | | +--------+ + + + [...] [place] | | | | | | [address] | | | | | | [phone] | | | | | | | | +--------+---------+ + + + documented as of this encounter Visit Diagnoses Not on filedocumented in this encounter"
--- OUTSIDE RECORDS SUMMARY | ~2019-02-09 | XMS | Encounter Summary ---
Demographics + + + | Address | [address] | | | [place] [address] | + + + | Home Phone [...] + | Prashanth Vuong | ECON | [address] | | | | | [place] | | | | | [address] | | + + + + + Care Team Providers + +------+ + | Care Hide Splitter Name | Role | Phone | + [...] | MRI Brain | [place], [place] | [address] | | | | | w wo | [address] | Phone: | | | | | Contrast | Phone: | [phone] | | | | | | [phone] | Fax: | | | | | | Fax: | [phone] | | | | | | [phone] | | +--------+--------+ + + + + [...] consult. Pt reports sharp pains in LEFT moravian x1 | | | month. | + [...] | | [address] [place], | [address] | loss of left eye; | | | | [place] [address] | [phone] | Constipation, | | | | [phone] | | unspecified | | | | [...] encounter Progress Notes Maria G Burgess, RICHARD MECHANIC AND WELDER - 01/12/2018 4:30 PM JESSICASandeepjovitasivakumar Vuong presents [...] consult. Pt reports sharp pains in LEFT moravian x1 month. Jarada geneva provider on BP [...] Pt reports sharp pains in L EFT moravian x1 month. Hypertension Update provider on BP readings Assessment Visual field defect nasal step, left (Primary) Vision loss of left eye - MRI Brain w wo Contrast; Future; Expected date: 01/12/2018 Constipation, unspecified constipation type Diarrhea, unspecified type Plan -Referral order for MRI of brain sent to [facility] in [place], if you do not hear anythi ng call me -Go to [facility] for Xray, Await report for constipation [...] She went to the eye doctor in [place]. She was having trouble with her left eye. The vis ion was blurry, and the eye was tired. She was getting shooting pain on the left moravian. She was unable to see finger counting [...] Procedure: EGD; Surgeon: Silvano Kaiser MD; Location: [facility] MEDICAL PROC[facility]URE UN[facility] UPPER GASTROINTESTINAL ENDOSCOPY N/A 02/03/2017 Procedure: EGD; Surgeon: Silvano Kaiser MD; Location: [facility] PROC[facility] Social History Social [...] Hives and Swelling Cefazolin Hives and Rash [place] Hives and Rash Review of Systems Constitutional: [...] [place] | | | | | | [address] | | | | | | [phone] | | | | | | | [...]
--- OUTSIDE RECORDS SUMMARY | ~2019-02-09 | XMS | Encounter Summary ---
Demographics + + + | Address | [address] | | | [place] [address] | + + + | Home Phone | | + + + | Preferred Language | Unknown | + + + | Marital Status | | + + + | Alevism Affiliation | 1028 | + + + | Race | Unknown | + + + | Ethnic Group | Unknown | + + + Author + + + | Author | [facility] | | | and [place] | + + + | Organization | [facility] | | | and [place] | + + + | Address | Unknown | + + + | Phone | Unavailable | + + + Support + + + + + | Name | Relationship | Address | Phone | + + + + + | Prashanth Vuong | ECON | [address] | | | | | [place] | | | | | [address] | | + + + + + Care Team Providers + +------+ + | Care Surface Mount Technology Operator Name | Role | Phone | [...] + + | 03/05/ | [facility] | [facility] | Oh Landrum PA | JOSSELINE on CPAP (Primary | | 2011 | Visit | SLEEP DISORDER [address] | [address] | Dx) | | | | [address] [place] | [place] | | | | | [place] [address] | [address] | | | | | [phone] | | | +--------+---------+ + + + [...] mask obtained from: [facility] [place] pressure is: 5-10 cm 95%: 7.0 cm [...] months, sooner prn. Thirty minutes were spent [id number], wi th the majority of time spent in counseling. Oh Landrum PA-C cc: Morris Wesley MD Krystyna Schuler - 2011 10:45 AM PST 03/05/12 1000 [place] Depression Inventory-II Depression Score 11 Insomnia Severity Index Insomnia Severity Index 19 Stendal Sleepiness Scale Sitting and reading 2 Watching [...] [place] | | | | | | [address] | | | | | | [phone] | | | | | | | | +--------+---------+ + + + documented as of this encounter Visit Diagnoses + + | Diagnosis | + + | JOSSELINE on CPAP - Primary Obstructive sleep apnea (adult) (pediatric) | + + documented in this encounter"
--- OUTSIDE RECORDS SUMMARY | ~2019-02-09 | XMS | Clinical Summary ---
Demographics + + + | Address | [address] | | | [place] [address] | + + + | Home Phone | | + + + | Preferred Language | Unknown | + + + | Marital Status | | + + + | Anabaptism Affiliation | 1028 | + + + | Race | Unknown | + + + | Ethnic Group | Unknown | + + + Author + + + | Author | [email or web address] (Historical as of | | | 11-06-18) | + + + | Organization | [email or web address] (Historical as of | | | 11-06-18) [...] Team Providers + +------+ + | Care Telephone Answerer Name | Role | Phone | + [...] + + + + + + | [place] [employer] | Hives | High | 09/14/20 [...] +------+-------+ + | MEDICARE | MEDICA | [id number] | | | [address] | | | RE | | | | [place] [address] | | | IP-OP | | | | | + +--------+ +------+-------+ + | ODS HEALTH PLAN | ODS | [id number] | | | | | | HEALTH [...] | Self | [birth year] Home: | [address] | | | al/Fam | | 1941 | [phone] [place] | | | [place] | | | [phone] | [address] | + +--------+ +--------+ + +"
--- OUTSIDE RECORDS SUMMARY | ~2019-02-09 | XMS | Encounter Summary ---
Demographics + + + | Address | [address] | | | [place] [address] | + + + | Home Phone | | + + + | Preferred Language | Unknown | + + + | Marital Status | Single | + + + | Baptism Affiliation | Unknown | + + + | Race | Unknown | + + + | Ethnic Group | Other Race | + + + Author + + + | Author | [facility] | + + + | Organization | [facility] | + + + | Address | Unknown | + + + | Phone | Unavailable | + + + Support + + +---------+ + | Name | Relationship | Address | Phone | + + +---------+ + | None None | ECON | Unknown | Unavailable | + + +---------+ + Care Team Providers + +------+ + | Care Soil Biology Teacher Name | Role | Phone | [...] | | [address] | [address] | | | | | | [place], | [address] | | | | | | [place] | [place], [place] | | | | | | [address] | [address] | | | | | | Phone: | Phone: | | | | | | [phone] | [phone] | | | | | | Fax: | Fax: | | | | | | [phone] | [phone] | +--------+--------+ + + + + Encounter Details +--------+---------+ + + + | Date | Type | Department | Care Team | Description | +--------+---------+ + + + | 01/06/ | Office | Otolaryngology | Rachid Steele | 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 | MD Lita [address] | paralysis of vocal | | | | at [facility] [address] | cord (Primary Dx); | | | | [address] [place] [place], | [place], [place] | Dysphonia; | | | | [place] [address] | [address] | Pharyngeal dysphagia | | | | [phone] | [phone] | | | | | | | [...] 12:28 AM PST PATIENT: Lita Vuong MR#: [id number] : 1940 REQUESTING PROVIDER: Farooq Wesley DO [facility] [address] [place] [address] PRIMARY CARE PROVIDER: Farooq Wesley DO CLINIC: [facility] CHIEF COMPLAINT: Chief Complaint Patient presents with New patient consultation Hoarseness HPI: Lita Vuong is a 71 y.o. 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 Her vocal demand s are [...] Vuong is . 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 She lives [place], [place] She does have children. She does not have supportive friends or family members in the [place] area. FAMILY HX: Family History Problem Relation [...] and symmetric throughout. The pupils are equal. Investment Specialist strength does mary jo ear full bilaterally. [...] Laryngovideostroboscopy was performed today by Elva Parekh CCC-MACHINE CERAMIC COATER. R eview of laryngovideostroboscopy demonstrates laryngeal anatomy [...] and benefits of the procedure and obtaining [facility] consent, Ms. Vuong was brought to [...] 1.7 cc of sterile saline to the fire fighter's inst ructions. This was loaded into a [...] persists to l imit her trips to [place]. Informed consent was obtained in the office. I will forward th e information to my medical office assistant instructor to arrange a surgical date and pre-operative evaluation. Rachid Steele M.D. Financial Reporting Accountant Laryngology and Head & Neck Surgery documented in this encounter Plan of Treatment Not on filedocumented as of this encounter Procedures + +--------+ + + + | Procedure Name | Priori | Date/Time | Associated Diagnosis | Comments | | | ty | | | | + +--------+ + + + | AR | Routin | 02/15/2012 | Left complete [...]
--- OUTSIDE RECORDS SUMMARY | ~2019-02-09 | XMS | Encounter Summary ---
Demographics + + + | Address | [address] | | | [place] [address] | + + + | Home Phone [...] + | Prashanth Vuong | ECON | [address] | | | | | [place] | | | | | [address] | | + + + + + Care Team Providers + +------+ + | Care Gore Maker Name | Role | Phone | + +------+ + PCP | Unavailable | + +------+ + Encounter Details +--------+ + + + + | Date | Type | Department | Care Team | Description | +--------+ + + + + | 11/25/ | Hospital | [facility] | Silvano Kaiser MD | | | 2006 | Encounter | MED CTR GENERIC OP | [address], [place] | | | | | CONV DEPT [address] | [address] [place], [place] | | | | | [address] [place], | [address] | | | | | [place] [address] | | | | | | [phone] | | | +--------+ + + + [...] [place] | | | | | | [address] | | | | | | [phone] | | | | | | | | +--------+---------+ + + + documented as of this encounter Visit Diagnoses Not on filedocumented in this encounter"
--- OUTSIDE RECORDS SUMMARY | ~2019-02-09 | XMS | Encounter Summary ---
Demographics + + + | Address | [address] | | | [place] [address] | + + + | Home Phone [...] + | Prashanth Vuong | ECON | [address] | | | | | [place] | | | | | [address] | | + + + + + Care Team Providers + +------+ + | Care Truck Loader And Unloader Name | Role | Phone | + +------+ + | Farooq Wesley DO | PCP | | + +------+ + Encounter Details +--------+ + + + + | Date | Type | Department | Care Team | Description | +--------+ + + + + | 03/01/ | Abstract | [facility] | Farooq Wesley | | | 2017 | | [facility] | E, DO [address] | | | | | [facility] | [place], [place] | | | | | [address] [place], | [address] | | | | | [place] [address] | [phone] | | | | | [phone] | | | +--------+ + + + [...] [place] | | | | | | [address] | | | | | | [phone] | | | | | | | | +--------+---------+ + + + documented as of this encounter Visit Diagnoses Not on filedocumented in this encounter"
--- OUTSIDE RECORDS SUMMARY | ~2019-02-09 | XMS | Encounter Summary ---
Demographics + + + | Address | [address] | | | [place] [address] | + + + | Home Phone [...] + | Prashanth Vuong | ECON | [address] | | | | | [place] | | | | | [address] | | + + + + + Care Team Providers + +------+ + | Care Skeet Operator Name | Role | Phone | + +------+ + PCP | Unavailable | + +------+ + Encounter Details +--------+ + + + + | Date | Type | Department | Care Team | Description | +--------+ + + + + | 12/06/ | Hospital | [facility] | Silvano Kaiser MD | | | 2009 | Encounter | MED CTR GENERIC OP | [address], [place] | | | | | CONV DEPT [address] | [address] [place], [place] | | | | | [place], | [address] | | | | | [place] [address] | | | | | | [phone] | | | +--------+ + + + [...] [place] | | | | | | [address] | | | | | | [phone] | | | | | | | | +--------+---------+ + + + documented as of this encounter Visit Diagnoses Not on filedocumented in this encounter"
--- OUTSIDE RECORDS SUMMARY | ~2019-02-09 | XMS | Clinical Summary ---
Demographics + + + | Address | [address] | | | [place] [address] | + + + | Home Phone | | + + + | Preferred Language | Unknown | + + + | Marital Status | Single | + + + | Congregation Affiliation | Unknown | + + + [...] Team Providers + +------+ + | Care Material Movers Name | Role | Phone | + +------+ + | Farooq Wesley DO | PCP | | + +------+ + Source Comments [facility]SCAR is fully live on both [facility] Ambulatory and [facility] InPatient.[facility] Allergies + + + + + [...] | | | | | | | [address] | | + +--------+ +--------+ + +--------+ | MODA MEDICARE | MODA | xxxxxxxxx | 03/12/ | [phone] | [address] | [address] | | SUPPLEMENT | MEDICA | | 2015-P | 4 | [address] | | | | RE | | resent | | [place], | | | | SUPPLE | | | | [place] [address] | | | | MENT | | [...] Person | Self | [birth year] | [address] | | | al/Fam | | 1941 | [phone] | [address] [place] | | | [place] | | | [address] (Home) | [address] | + +--------+ +--------+ + +
--- OUTSIDE RECORDS SUMMARY | ~2019-02-09 | XMS | Encounter Summary ---
Demographics + + + | Address | [address] | | | [place] [address] | + + + | Home Phone [...] + | Prashanth Vuong | ECON | [address] | | | | | [place] | | | | | [address] | | + + + + + Care Team Providers + +------+ + | Care Rerolling Machine Operator Name | Role | Phone [...] + + | 06/09/ | [facility] | Oh Landrum PA | JOSSELINE on CPAP (Primary | | 2012 | Visit | SLEEP DISORDER [address] | [address] | Dx) | | | | [address] [place] | [place] | | | | | [place] [address] | [id number] | | | | | [phone] | | | +--------+---------+ + + + [...] Insomnia Severity Index Insomnia Severity Index 16 [place] Sleepiness Scale Sitting and reading 2 Watching [...] mask obtained from: [facility] [place] pressure is: 5-10 cm 95%: 7.0 cm [...] months, sooner prn. Fifteen minutes were spent [id number], w ith the majority of time spent [...] [place] | | | | | | [address] | | | | | | [phone] | | | | | | | | +--------+---------+ + + + documented as of this encounter Visit Diagnoses + + | Diagnosis | + + | JOSSELINE on CPAP - Primary Obstructive sleep apnea (adult) (pediatric) | + + documented in this encounter"
--- OUTSIDE RECORDS SUMMARY | ~2019-02-09 | XMS | Encounter Summary ---
Demographics + + + | Address | [address] | | | [place] [address] | + + + | Home Phone | | + + + | Preferred Language | Unknown | + + + | Marital Status | | + + + | Scientology Affiliation | 1028 | + + + | Race | Unknown | + + + | Ethnic Group | Unknown | + + + Author + + + | Author | [facility] | | | and [place] | + + + | Organization | [facility] | | | and [place] | + + + | Address | Unknown | + + + | Phone | Unavailable | + + + Support + + + + + | Name | Relationship | Address | Phone | + + + + + | Prashanth Vuong | ECON | [address] | | | | | [place] | | | | | [address] | | + + + + + Care Team Providers + +------+ + | Care Pediatric Allergist Name | Role | Phone | + [...] [place] | | | | | | [address] | [address] | | | | | | Phone: | Phone: | | | | | | [phone] | [phone] | | | | | | Fax: | Fax: | | | | | | [phone] | [phone] | + + + + + + [...] | | [address] [place], | [address] | Controlled type 2 | | | | [place] [address] | [phone] | diabetes mellitus | | | | [phone] | | without | | | | | | complication, | | | | | | without long-term | | | | | | current use of | | | | | | insulin ([facility]); Right | | | | | | [...] a referral to [facility]. 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 She is having right ankle pain. She [...] Right Foot: Normal Entered by Brian Coronado [facility], acting as scribe for Morris Wesley D.O. [...] [place] | | | | | | [address] | | | | | | [phone] | | | | | | | [...]
--- OUTSIDE RECORDS SUMMARY | ~2019-02-09 | XMS | Encounter Summary ---
Demographics + + + | Address | [address] | | | [place] [address] | + + + | Home Phone [...] + | Prashanth Vuong | ECON | [address] | | | | | [place] | | | | | [address] | | + + + + + Care Team Providers + +------+ + | Care Hand Heel Seat Fitter Name | Role | Phone | + +------+ + PCP | Unavailable | + +------+ + Encounter Details +--------+ + + + + | Date | Type | Department | Care Team | Description | +--------+ + + + + | 11/17/ | Hospital | [facility] | Silvano Kaiser MD | | | 2001 | Encounter | MED CTR GENERIC OP | [address], [place] | | | | | CONV DEPT [address] | [address] [place], [place] | | | | | [place], | [address] | | | | | [place] [address] | | | | | | [phone] | | | +--------+ + + + [...] [place] | | | | | | [address] | | | | | | [phone] | | | | | | | | +--------+---------+ + + + documented as of this encounter Visit Diagnoses Not on filedocumented in this encounter"
--- OUTSIDE RECORDS SUMMARY | ~2019-02-09 | XMS | Encounter Summary ---
Demographics + + + | Address | [address] | | | [place] [address] | + + + | Home Phone [...] + | Prashanth Vuong | ECON | [address] | | | | | [place] | | | | | [address] | | + + + + + Care Team Providers + +------+ + | Care Glass Smoother Name | Role | Phone | + [...] | | | | gale/pt/[place] | | [place] [address] | | | | | c | | Phone: | | | | | Procedures | | [phone] | | | | | OFFICE VISIT | | Fax: | | | | | REGULAR | | [phone] | +--------+--------+ + + + + Encounter Details +--------+---------+ + + + | Date | Type | Department | Care Team | Description | +--------+---------+ + + + | 12/20/ | Office | [facility] [place] | Silvano Kaiser MD | Abdominal pain, | | 2013 | Visit | GASTROENTEROLOGY | [address], [place] | epigastric (Primary | | | | [address] [place] | [address] [place], [place] | Dx); Diarrhea; Full | | | | [address] [place], [place] | [address] | incontinence of | | | | [address] | | feces | | | | [phone] | | | +--------+---------+ + + + [...] hemorrhoids tendency and tortuosity Records reviewed in [facility] medicine firm primarily hypertension hyperglycemia gas [...] of Levsin subling [facility] to take on an as-needed basis [...] made to ensure accuracy; however, inadvertent computerized distribution operation supervisor errors may be pre sent. documented in [...] [place] | | | | | | [address] | | | | | | [phone] | | | | | | | | +--------+---------+ + + + documented as of this encounter Visit Diagnoses + + | Diagnosis | + + | Abdominal pain, epigastric - Primary | + + | Diarrhea | + + | Full incontinence of feces | + + documented in this encounter
--- OUTSIDE RECORDS SUMMARY | ~2019-02-09 | XMS | Encounter Summary ---
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 She reports niak t she has a lot of stress [...] cervical Diffuse esophageal spasm DM (diabetes mellitus) ([facility]) Dyskinesia of esophagus Dyslipidemia Dysphagia Esophageal reflux [...] Hives and Swelling Cefazolin Hives and Rash Levant Hives and Rash Electronically signed by FLORES Rankin 10/15/2018 11:26 Note: Part of this report was transcribed using voice recognition software. Every effort wa s made to ensure accuracy. However, inadvertent computerized certified medical transcriptionist errors may be pre sent documented i [...] [place] | | | | | | [address] | | | | | | [phone] | | | | | | | [...]
--- OUTSIDE RECORDS SUMMARY | ~2019-02-09 | XMS | Encounter Summary ---
Demographics + + + | Address | [address] | | | [place] [address] | + + + | Home Phone [...] + | Prashanth Vuong | ECON | [address] | | | | | [place] | | | | | [address] | | + + + + + Care Team Providers + +------+ + | Care Sterile Instrument Technician Name | Role | Phone | [...] | SR | | | | | [phone] | | | +--------+ + + + [...] [place] | | | | | | [address] | | | | | | [phone] | | | | | | | | +--------+---------+ + + + documented as of this encounter Visit Diagnoses Not on filedocumented in this encounter
--- OUTSIDE RECORDS SUMMARY | ~2019-02-09 | XMS | Encounter Summary ---
Demographics + + + | Address | [address] | | | [place] [address] | + + + | Home Phone [...] + | Prashanth Vuong | ECON | [address] | | | | | [place] | | | | | [address] | | + + + + + Care Team Providers + +------+ + | Care Barrel Raiser Helper Name | Role | Phone | + +------+ + PCP | Unavailable | + +------+ + Encounter Details +--------+ + + + + | Date | Type | Department | Care Team | Description | +--------+ + + + + | 08/19/ | Hospital | [facility] | Edwin Galloway | | | 2006 | Encounter | MED CTR SLEEP | [address] | | | | | [place] [address] | [address] [place] | | | | | [place], [place] | [place] [address] | | | | | [address] | [phone] | | | | | [phone] | | | +--------+ + + + [...] [place] | | | | | | [address] | | | | | | [phone] | | | | | | | | +--------+---------+ + + + documented as of this encounter Visit Diagnoses Not on filedocumented in this encounter"
--- OUTSIDE RECORDS SUMMARY | ~2019-02-09 | XMS | Encounter Summary ---
Demographics + + + | Address | [address] | | | [place] [address] | + + + | Home Phone [...] Team Providers + +------+ + | Care Lead Designer Name | Role | Phone | + [...] | | | | [place] | [address] [place] | | | | | | [address] | [facility] | | | | | | Phone: | and Healing, | | | | | | [phone] | [address], | | | | | | Fax: | 15th Floor | | | | | | [phone] | [place], [place] | | | | | | | [address] | | | | | | | Phone: | | | | | | | [phone] | | | | | | | Fax: | | | | | | | [phone] | +--------+--------+ + + + + Encounter Details +--------+---------+ + + + | Date | Type | Department | Care Team | Description | +--------+---------+ + + + | 01/06/ | Office | [facility] | Elva Parekh, | Dysphonia; | | 2011 | Visit | [facility] | [facility] [address] | Dysphagia, | | | | Swallowing at [facility] | [address] | pharyngeal phase; | | | | [address] | [place] [address] | Unilateral complete | | | | Mailcode: [id number] | 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 [...] and GERD. SINGING: The patient enjoys recreational confucianism singing, but is currently unable to sing [...] The patient's speech intelligibility was approximately 100%. [facility] Consensus Auditory-Perceptual Evaluation of Voice (CAPE-V) was [...] laryngeal function studies were completed using the [facility] with a hand- held microphone with [...] his plan of care. Elva Parekh M.S., [facility] Speech-Language Pathologist [facility] Department of Otolaryngology [facility] [place] [address] Appointments: documented in this encounter Plan of Treatment Not on filedocumented as of this encounter Procedures + +--------+ + + + | Procedure Name | Priori | Date/Time | Associated Diagnosis | Comments | | | ty | | | | + +--------+ + + + | [facility] | Routin | 01/08/2012 | Dysphonia | | | FUNCTION STUDIES | e | 8:08 AM | Unilateral complete | | | | | PDT | paralysis of vocal | | | | | | cords or larynx | | + +--------+ + + + | [facility] | Routin | 01/08/2012 | Dysphonia | | | EVALUATION | e | 8:08 AM | Unilateral complete | | | | | PDT | paralysis of vocal | | | | | | cords or larynx | | + +--------+ + + + | [facility] | Routin | 01/08/2012 | Dysphonia | [...]
--- OUTSIDE RECORDS SUMMARY | ~2019-02-09 | XMS | Encounter Summary ---
Demographics + + + | Address | [address] | | | [place] [address] | + + + | Home Phone | | + + + | Preferred Language | Unknown | + + + | Marital Status | | + + + | Congregation Affiliation | 1028 | + + + | Race | Unknown | + + + | Ethnic Group | Unknown | + + + Author + + + | Author | [facility] | | | and [place] | + + + | Organization | [facility] | | | and [place] | + + + | Address | Unknown | + + + | Phone | Unavailable | + + + Support + + + + + | Name | Relationship | Address | Phone | + + + + + | Prashanth Vuong | ECON | [address] | | | | | [place] | | | | | [address] | | + + + + + Care Team Providers + +------+ + | Care Engineer Soils Name | Role | Phone | + +------+ + | Farooq Wesley DO | PCP | | + +------+ + Reason for Visit + + + | Reason | Comments | + + + | Procedure | EGD | + + + Encounter Details +--------+ + + + + | Date | Type | Department | Care Team | Description | +--------+ + + + + | 01/08/ | Telephone | [facility] [place] | Silvano Kaiser MD | Procedure (EGD) | | 2017 | | GASTROENTEROLOGY | [address], [place] | | | | | [address] [place] | [address] [place], [place] | | | | | [address] [place], [place] | [address] | | | | | [address] | | | | | | [phone] | | | +--------+ + + + [...] [place] | | | | | | [address] | | | | | | [phone] | | | | | | | | +--------+---------+ + + + documented as of this encounter Visit Diagnoses + + | Diagnosis | + + | Dyskinesia of esophagus - Primary | + + | Advanced age Reserved for inherently not codable concepts WITHOUT codable children | + + documented in this encounter"
--- OUTSIDE RECORDS SUMMARY | ~2019-02-09 | XMS | Encounter Summary ---
Demographics + + + | Address | [address] | | | [place] [address] | + + + | Home Phone | | + + + | Preferred Language | Unknown | + + + | Marital Status | | + + + | Spiritism Affiliation | 1028 | + + + | Race | Unknown | + + + | Ethnic Group | Unknown | + + + Author + + + | Author | [facility] | | | and [place] | + + + | Organization | [facility] | | | and [place] | + + + | Address | Unknown | + + + | Phone | Unavailable | + + + Support + + + + + | Name | Relationship | Address | Phone | + + + + + | Prashanth Vuong | ECON | [address] | | | | | [place] | | | | | [address] | | + + + + + Care Team Providers + +------+ + | Care Lens Marker Name | Role | Phone | + [...] Medication Problem | | 2018 | | [facility] | E, DO [address] | | | | | MEDICAL CLINIC [address] | [place], [place] | | | | | [address] [place], | [address] | | | | | [place] [address] | [phone] | | | | | [phone] | | | +--------+ + + + [...] [place] | | | | | | [address] | | | | | | [phone] | | | | | | | | +--------+---------+ + + + documented as of this encounter Visit Diagnoses + + | Diagnosis | + + | Dog bite of hand, right, initial encounter - Primary | + + documented in this encounter"
--- OUTSIDE RECORDS SUMMARY | ~2019-02-09 | XMS | Encounter Summary ---
Demographics + + + | Address | [address] | | | [place] [address] | + + + | Home Phone | | + + + | Preferred Language | Unknown | + + + | Marital Status | | + + + | Congregational Affiliation | 1028 | + + + | Race | Unknown | + + + | Ethnic Group | Unknown | + + + Author + + + | Author | [facility] | | | and [place] | + + + | Organization | [facility] | | | and [place] | + + + | Address | Unknown | + + + | Phone | Unavailable | + + + Support + + + + + | Name | Relationship | Address | Phone | + + + + + | Prashanth Vuong | ECON | [address] | | | | | [place] | | | | | [address] | | + + + + + Care Team Providers + +------+ + | Care Global Ceo Name | Role | Phone | + +------+ + PCP | Unavailable | + +------+ + Encounter Details +--------+ + + + + | Date | Type | Department | Care Team | Description | +--------+ + + + + | 12/06/ | Hospital | [facility] | Silvano Kaiser MD | | | 2009 | Encounter | MED CTR GENERIC OP | [address], [place] | | | | | CONV DEPT [address] | [address] [place], [place] | | | | | [place], | [address] | | | | | [place] [address] | | | | | | [phone] | | | +--------+ + + + [...] [place] | | | | | | [address] | | | | | | [phone] | | | | | | | | +--------+---------+ + + + documented as of this encounter Visit Diagnoses Not on filedocumented in this encounter"
--- OUTSIDE RECORDS SUMMARY | ~2019-02-09 | XMS | Encounter Summary ---
Demographics + + + | Address | [address] | | | [place] [address] | + + + | Home Phone | | + + + | Preferred Language | Unknown | + + + | Marital Status | | + + + | Restorationist Affiliation | 1028 | + + + [...] + | Prashanth Vuong | ECON | [address] | | | | | [place] | | | | | [address] | | + + + + + Care Team Providers + +------+ + | Care Chorus Master Name | Role | Phone | + [...] 2017 | | GASTROENTEROLOGY | [address], [place] | | | | | [address] [place] | [address] [place], [place] | | | | | [address] [place], [place] | [address] | | | | | [address] | | | | | | [phone] | | | +--------+ + + + [...] [place] | | | | | | [address] | | | | | | [phone] | | | | | | | | +--------+---------+ + + + documented as of this encounter Visit Diagnoses + + | Diagnosis | + + | Dyskinesia of esophagus - Primary | + + | Advanced age Reserved for inherently not codable concepts WITHOUT codable children | + + documented in this encounter"
--- OUTSIDE RECORDS SUMMARY | ~2019-02-09 | XMS | Encounter Summary ---
Demographics + + + | Address | [address] | | | [place] [address] | + + + | Home Phone | | + + + | Preferred Language | Unknown | + + + | Marital Status | Single | + + + | Hindu Affiliation | Unknown | + + + | Race | Unknown | + + + | Ethnic Group | Other Race | + + + Author + + + | Author | [facility] | + + + | Organization | [facility] | + + + | Address | Unknown | + + + | Phone | Unavailable | + + + Support + + +---------+ + | Name | Relationship | Address | Phone | + + +---------+ + | None None | ECON | Unknown | Unavailable | + + +---------+ + Care Team Providers + +------+ + | Care Fur Pointer Name | Role | Phone | + [...] [id number] | | | | | | [place], [place] | | | | | | [address] | | | | | | [phone] | | | +--------+ + + + [...]
--- OUTSIDE RECORDS SUMMARY | ~2019-02-09 | XMS | Encounter Summary ---
Demographics + + + | Address | [address] | | | [place] [address] | + + + | Home Phone | | + + + | Preferred Language | Unknown | + + + | Marital Status | Single | + + + | Taoism Affiliation | Unknown | + + + | Race | Unknown | + + + | Ethnic Group | Other Race | + + + Author + + + | Author | [facility] | + + + | Organization | [facility] | + + + | Address | Unknown | + + + | Phone | Unavailable | + + + Support + + +---------+ + | Name | Relationship | Address | Phone | + + +---------+ + | None None | ECON | Unknown | Unavailable | + + +---------+ + Care Team Providers + +------+ + | Care Gaming Director Name | Role | Phone | [...] | Telephone | [facility] | Mebla Banks MD | Other (genny) | | 2005 | | [facility] | | | | | | [address] | | | | | | [address] | | | | | | [place] | | | | | | [place], [place] | | | | | | [address] | | | | | | [phone] | | | +--------+ + + + [...]
--- OUTSIDE RECORDS SUMMARY | ~2019-02-09 | XMS | Encounter Summary ---
Demographics + + + | Address | [address] | | | [place] [address] | + + + | Home Phone [...] + | Prashanth Vuong | ECON | [address] | | | | | [place] | | | | | [address] | | + + + + + Care Team Providers + +------+ + | Care Managing Attorney Name | Role | Phone | + [...] | 2016 | Changes | GASTROENTEROLOGY | [address] | | | | | [address] | | | | | | [address] [place] | | | | | | [address] | | | | | | [phone] | | | +--------+ + + + [...] [place] | | | | | | [address] | | | | | | [phone] | | | | | | | | +--------+---------+ + + + documented as of this encounter Visit Diagnoses Not on filedocumented in this encounter"
--- OUTSIDE RECORDS SUMMARY | ~2019-02-09 | XMS | Encounter Summary ---
Demographics + + + | Address | [address] | | | [place] [address] | + + + | Home Phone [...] + | Prashanth Vuong | ECON | [address] | | | | | [place] | | | | | [address] | | + + + + + Care Team Providers + +------+ + | Care Manager Internet Name | Role | Phone | + [...] Procedures | [address] [place], | | | | | [place] UPPER GI | [place], [place] | [place] [address] | | | | | ENDOSCOPY,DI | [address] [place] | [place], | | | | | AGNOSIS [place] | [place], [place] | [place] [address] | | | | | UPPER GI | [address] | Phone: | | | | | ENDOSCOPY,BI | Phone: | [phone] | | | | | OPSY | [phone] | Fax: | | | | | | Fax: | [phone] | | | | | | [phone] | | +--------+ + + + + + Reason for Visit + + + | Reason | Comments | + + + | Appointment | | + + + Encounter Details +--------+ + + + + | Date | Type | Department | Care Team | Description | +--------+ + + + + | 09/21/ | Telephone | [facility] | Silvano Kaiser MD | Appointment | | 2012 | | GASTROENTEROLOGY | [address] [place], [place] | | | | | [address] [place] | [address] [place], [place] | | | | | [address] [place], [place] | [address] | | | | | [address] | | | | | | [phone] | | | +--------+ + + + [...] [place] | | | | | | [address] | | | | | | [phone] | | | | | | | [...]
--- OUTSIDE RECORDS SUMMARY | ~2019-02-09 | XMS | Encounter Summary ---
Demographics + + + | Address | [address] | | | [place] [address] | + + + | Home Phone [...] + | Prashanth Vuong | ECON | [address] | | | | | [place] | | | | | [address] | | + + + + + Care Team Providers + +------+ + | Care Stevedore Dock Name | Role | Phone | + [...] 2015 | | GASTROENTEROLOGY | [address], [place] | | | | | [address] [place] | [address] [place], [place] | | | | | [address] [place], [place] | [address] | | | | | [address] | | | | | | [phone] | | | +--------+ + + + [...] [place] | | | | | | [address] | | | | | | [phone] | | | | | | | | +--------+---------+ + + + documented as of this encounter Visit Diagnoses Not on filedocumented in this encounter
--- OUTSIDE RECORDS SUMMARY | ~2019-02-09 | XMS | Encounter Summary ---
Demographics + + + | Address | [address] | | | [place] [address] | + + + | Home Phone | | + + + | Preferred Language | Unknown | + + + | Marital Status | | + + + | Adventist Affiliation | 1028 | + + + | Race | Unknown | + + + | Ethnic Group | Unknown | + + + Author + + + | Author | [facility] | | | and [place] | + + + | Organization | [facility] | | | and [place] | + + + | Address | Unknown | + + + | Phone | Unavailable | + + + Support + + + + + | Name | Relationship | Address | Phone | + + + + + | Prashanth Vuong | ECON | [address] | | | | | [place] | | | | | [address] | | + + + + + Care Team Providers + +------+ + | Care Civil Cadd Technician Name | Role | Phone | [...] hand, | | 2018 | Visit | [facility] | Ilene, HEEL NAILING MACHINE OPERATOR [address] | right, initial | | | | MEDICAL CLIN[facility] [address] | [address] [place] | encounter (Primary | | | | [address] [place], | [place] [address] | Dx); Cellulitis of | | | | [place] [address] | [phone] | hand, right | | | | [phone] | | | +--------+---------+ + + + [...] cervical Diffuse esophageal spasm DM (diabetes mellitus) ([facility]) Dyskinesia of esophagus Dyslipidemia Dysphagia Esophageal reflux [...] Hives and Swelling Cefazolin Hives and Rash Samaria Hives and Rash Electronically signed by FLORES Rankin 12/24/2018 07:27 Note: Part of this report was transcribed using voice recognition software. Every effort wa s made to ensure accuracy. However, inadvertent computerized tubular stock glass bulb machine former errors may be pre sent documented i [...] [place] | | | | | | [address] | | | | | | [phone] | | | | | | | [...] + + | [place] [facility] | [address] | [place] [address] | [phone] | | [facility] | | | [...]
--- OUTSIDE RECORDS SUMMARY | ~2019-02-09 | XMS | Encounter Summary ---
Demographics + + + | Address | [address] | | | [place] [address] | + + + | Home Phone [...] + | Prashanth Vuong | ECON | [address] | | | | | [place] | | | | | [address] | | + + + + + Care Team Providers + +------+ + | Care Blower Operator Name | Role | Phone | [...] (please call | | 2019 | | [facility] | E, DO [address] | back) | | | | MEDICAL [facility] [address] | [place], [place] | | | | | [place], | [address] | | | | | [place] [address] | [phone] | | | | | [phone] | | | +--------+ + + + [...] [place] | | | | | | [address] | | | | | | [phone] | | | | | | | | +--------+---------+ + + + documented as of this encounter Visit Diagnoses Not on filedocumented in this encounter"
--- OUTSIDE RECORDS SUMMARY | ~2019-02-09 | XMS | Encounter Summary ---
Demographics + + + | Address | [address] | | | [place] [address] | + + + | Home Phone [...] + | Prashanth Vuong | ECON | [address] | | | | | [place] | | | | | [address] | | + + + + + Care Team Providers + +------+ + | Care Aerial Photographer Name | Role | Phone | + [...] [address] | | | | [place] UPPER GI | [place] | [place] | | | | | ENDOSCOPY,DI | [address] [place] | [address] [place] | | | | | AGNOSIS [place] | [place], [place] | [place] | | | | | UPPER GI | [address] | [address] Phone: | | | | | ENDOSCOPY,BI | Phone: | [phone] | | | | | OPSY | [phone] | Fax: | | | | | | Fax: | [phone] | | | | | | [phone] | | +--------+ + + + + [...] | 04/02/ | Office | [facility] [place] | Curt Sandoval, | Dysphagia (Primary | | 2012 | Visit | GASTROENTEROLOGY | [address] | Dx) | | | | [address] | [address] [place], | | | | | [address] [place], [place] | [place] [address] | | | | | [address] | [phone] | | | | | [phone] | | | +--------+---------+ + + + [...] Curt Hester MD - 04/02/2012 12:00 AM [facility] GASTROENTEROLOGY [address] [facility] [address] [place] [address] FAX: [phone] OFFICE VISIT HISTORY OF PRESENT ILLNESS: The [...] Sandoval M.D. KALEY / FLOR JOB #: [id number] signed by Curt Sandoval MD at 04/02/2012 [...] [place] | | | | | | [address] | | | | | | [phone] | | | | | | | [...]
--- OUTSIDE RECORDS SUMMARY | ~2019-02-09 | XMS | Encounter Summary ---
Demographics + + + | Address | [address] | | | [place] [address] | + + + | Home Phone [...] + | Prashanth Vuong | ECON | [address] | | | | | [place] | | | | | [address] | | + + + + + Care Team Providers + +------+ + | Care Tenderizer Tender Name | Role | Phone | [...] | Results | | 2018 | | [facility] | [facility], [facility] [address] | | | | | MEDICAL CLINIC [address] | [address] [place] | | | | | [address] [place], | [place] [address] | | | | | [place] [address] | [phone] | | | | | [phone] | | | +--------+ + + + [...] [place] | | | | | | [address] | | | | | | [phone] | | | | | | | | +--------+---------+ + + + documented as of this encounter Visit Diagnoses Not on filedocumented in this encounter"
--- OUTSIDE RECORDS SUMMARY | ~2019-02-09 | XMS | Encounter Summary ---
Demographics + + + | Address | [address] | | | [place] [address] | + + + | Home Phone [...] + | Prashanth Vuong | ECON | [address] | | | | | [place] | | | | | [address] | | + + + + + Care Team Providers + +------+ + | Care Pail Tester Name | Role | Phone | [...] 2013 | | GASTROENTEROLOGY | [address] [place] | | | | | [address] [place] | [address] [place], [place] | | | | | [address] [place], [place] | [address] | | | | | [address] | | | | | | [phone] | | | +--------+ + + + [...] [place] | | | | | | [address] | | | | | | [phone] | | | | | | | | +--------+---------+ + + + documented as of this encounter Visit Diagnoses Not on filedocumented in this encounter"
--- OUTSIDE RECORDS SUMMARY | ~2019-02-09 | XMS | Encounter Summary ---
Demographics + + + | Address | [address] | | | [place] [address] | + + + | Home Phone | | + + + | Preferred Language | Unknown | + + + | Marital Status | Single | + + + | Church Affiliation | Unknown | + + + | Race | Unknown | + + + | Ethnic Group | Other Race | + + + Author + + + | Author | [facility] | + + + | Organization | [facility] | + + [...] Team Providers + +------+ + | Care Reversal Print Inspector Name | Role | Phone | [...] | | 2005 | | [facility] | | | | | | [address] | | | | | [address] | | | | | | [place] | | | | | | [place], [place] | | | | | | [address] | | | | | | [phone] | | | +--------+ + + + [...]
--- OUTSIDE RECORDS SUMMARY | ~2019-02-09 | XMS | Encounter Summary ---
Demographics + + + | Address | [address] | | | [place] [address] | + + + | Home Phone [...] + | Prashanth Vuong | ECON | [address] | | | | | [place] | | | | | [address] | | + + + + + Care Team Providers + +------+ + | Care Boots And Shoes Supervisor Name | Role | Phone | + +------+ + PCP | Unavailable | + +------+ + Encounter Details +--------+ + + + + | Date | Type | Department | Care Team | Description | +--------+ + + + + | 08/14/ | Hospital | [facility] | Silvano Kaiser MD | | | 2010 | Encounter | MED CTR MP INTRA OP | [address] | | | | | [address] | [address] [place], [place] | | | | | [place], [place] | [address] | | | | | [address] | | | | | | [phone] | | | +--------+ + + + [...] [place] | | | | | | [address] | | | | | | [phone] | | | | | | | [...] + | [facility] | [address] | [place], [place] | [phone] | | [facility] | | [address] | | | - LABORATORY | | | | + + + + + | [facility] | [address] | [place], [place] | | | [facility] | | [address] | | | - LABORATORY | | | | + + + + + documented in this encounter Visit Diagnoses Not on filedocumented in this encounter"
--- NOTE | 2019-02-09 17:51 | EKG ---
[facility] [address] [facility] [place], [place] [address] Signed Sinus bradycardia Otherwise normal ECG No previous ECGs available Confirmed by ELIEZER BRICE DO ([id number]) on 02/09/2019 5:51:03 PM Electronically Signed By: ELIEZER BRICE DO 02/09/19 175 PATIENT NAME: DIANE CASEY Electrocardiogram DATE OF : 40 PHYSICIAN: ELIEZER BRICE DO REPORT #: [id number] REPORT IS CONFIDENTIAL AND NOT TO BE RELEASED WITHOUT AUTHORIZATION
== END ==
LOC: ED 07:26
DX: K21.9 Gastro-esophageal reflux disease without esophagitis (principal); K22.4 Dyskinesia of esophagus; I10 Essential (primary) hypertension; E11.9 Type 2 diabetes mellitus without complications; E03.9 Hypothyroidism, unspecified; Z91.041 Radiographic dye allergy status; Z88.8 Allergy status to other drugs, medicaments and biological substances; Z88.2 Allergy status to sulfonamides; Z91.018 Allergy to other foods; Z79.899 Other long term (current) drug therapy; Z79.82 Long term (current) use of aspirin
CPT/HCPCS: 36415; 71045; 80053; 83735; 84484; 85025; 85379; 93005; 93010; 99285-25

== ENCOUNTER 2019-09-21 05:29 | Emergency (ER) | payer MEDICARE, OTHER ==
[~2019-09-21] VITALS: Ht 154.9 cm; Wt 68.5 kg
--- OUTSIDE RECORDS SUMMARY | ~2019-09-21 | XMS | Encounter Summary ---
Demographics + + + | Address | [address] | | | [place] [address] | + + + | Home Phone | | + + + | Preferred Language | Unknown | + + + | Marital Status | | + + + | Jainism Affiliation | 1028 | + + + | Race | Unknown | + + + | Ethnic Group | Unknown | + + + Author + + + | Author | [facility] | | | and [place] | + + + | Organization | [facility] | | | and [place] | + + + | Address | Unknown | + + + | Phone | Unavailable | + + + Support + + + + + | Name | Relationship | Address | Phone | + + + + + | Prashanth Vuong | ECON | [address] | | | | | [place] | | | | | [address] | | + + + + + Care Team Providers + +------+ + | Care Body Liner Name | Role | Phone | + +------+ + | Farooq Wesley PCP | | + +------+ + Reason for Visit +---------+ + | Reason | Comments | +---------+ + | Results | Follow up on diagnostic results and discontinuation of | | | Metoprolol. | +---------+ + Encounter Details +--------+---------+ + + + | Date | Type | Department | Care Team | Description | +--------+---------+ + + + | 09/28/ | Office | [facility] | Farooq Wesley | Essential | | 2019 | Visit | [facility] | E, DO [address] | hypertension, benign | | | | MEDICAL CLINIC [address] | [place], [place] | (Primary Dx); | | | | [address] [place], | [address] | Bradycardia | | | | [place] [address] | [phone] | | | | | [phone] | | | +--------+---------+ + + + Social History + +-------+ +--------+------+ | Tobacco Use | Types | Packs/Day | Years | Date | | | | | Used | | + +-------+ +--------+------+ | Never Smoker | | | | | + +-------+ +--------+------+ + +---+---+---+ | Smokeless Tobacco: | | | | | Never Used | | | | + +---+---+---+ + + | Tobacco Cessation: Counseling Given: No | + + + + + + + | Alcohol Use | Drinks/Week | oz/Week | Comments | + + + + + | Yes | 1-2 Glasses of | 1.0 - 2.0 | | | | wine 0 Cans of beer | | | | | 0 Shots of liquor | | | + + + + + + + + + | Alcohol Habits | Answer | Date Recorded | + + + + | How often do you have a drink containing | 2-4 times a month | 08/17/2018 | | alcohol? | | | + + + + | How many drinks containing alcohol do you | 1 or 2 | 08/17/2018 | | have on a typical day when you are | | | | drinking? | | | + + + + | How often do you have six or more drinks on | Never | 08/17/2018 | | one occasion? | | | + + + + + + + | Sex Assigned at | Date Recorded | | | | + + + | Not on file | | + + + documented as of this encounter Last Filed Vital Signs + + + + + | Vital Sign | Reading | Time Taken | Comments | + + + + + | Blood Pressure | 140/62 | 09/28/2018 1:39 PM | RIGHT arm, adult | | | | PDT | cuff. | + + + + + | Pulse | 62 | 09/28/2018 1:19 PM | | | | | PDT | | + + + + + | Temperature | - | - | | + + + + + | Respiratory Rate | 15 | 09/28/2018 1:19 PM | | | | | PDT | | + + + + + | Oxygen Saturation | 98% | 09/28/2018 1:19 PM | | | | | PDT | | + + + + + | Inhaled Oxygen | - | - | | | Concentration | | | | + + + + + | Weight | 73.5 kg (162 lb) | 09/28/2018 1:19 PM | | | | | PDT | | + + + + + | Height | 154.9 cm (5' 1") | 09/28/2018 1:19 PM | | | | | PDT | | + + + + + | Body Mass Index | 30.61 | 09/28/2018 1:19 PM | | | | | PDT | | + + + + + documented in this encounter Progress Notes Farooq Wesley DO - 09/28/2018 1:20 PM PDT Patient ID: Lita Vuong is a 78 y.o. year old female Chief Complaint: Chief Complaint Patient presents with Results Follow up on diagnostic results and discontinuation of Metoprolol. Assessment and Plan: 1. Essential hypertension, benign 2. Bradycardia -Blood pressure is still well controlled off of Toprol XL. Pulse is also improved. We will discontinue Toprol XL 25mg. -Continue Hyzaar 50-12.5mg daily Subjective: HPI: Patient presents to the clinic for Holter monitor results. Holter monitor on 09/02/18 showed overall low heart rate, otherwise normal. After her Amaury r she stopped Toprol XL and her heart rate has increased. Today she her pulse is 62. She is feeling better overall. She is experiencing episodes of extreme fatigue where she has to sit down for 15-20 minutes. She has had two episodes in the past month. Before her Holter monit or she had had 5-6 episodes over 5 months. At home her blood pressure has been running the t he 108/60s-70s. Today her blood pressure is 138/70. She is currently taking Hyzaar 50-12.5mg daily. Current Outpatient Medications Medication Sig Dispense Refill ACCU-CHEK [place] PLUS strip 6 albuterol (VENTOLIN HFA) 90 mcg/puff inhaler Inhale 2 puffs into the lungs every 6 hour s as needed for Wheezing. aspirin 81 MG tablet Take 81 mg by mouth nightly. Cholecalciferol (VITAMIN D-3) 2000 units CAPS Take 2,000 Units by mouth Daily. EPINEPHrine (EPIPEN 2-HOLLEY) 0.3 mg/0.3 mL injection Inject 0.3 mg into the muscle as nee ded. esomeprazole (NEXIUM 24HR) 20 mg capsule Take 20 mg by mouth every morning (before eliud kfast). levothyroxine (SYNTHROID) 75 MCG tablet Take 1 tablet by mouth Daily. 90 tablet 3 losartan-hydrochlorothiazide (HYZAAR) 50-12.5 MG per tablet Take 1 tablet by mouth Erick y. 90 tablet 3 Multiple Vitamins-Minerals (MULTIVITAMIN PO) Take 1 tablet by mouth Daily. nitroglycerin (NITROSTAT) 0.[address] 1 tablet under the tongue every 5 misty maliha as needed. 25 tablet 11 non-formulary medication External CBD oil No current facility-administered medications for this visit. 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 GERD (gastroesophageal reflux disease) Dysphagia Diabetes mellitus type 2, controlled Hypothyroidism Cervical spondylolysis Essential hypertension, benign H/O thrombosis Degeneration, intervertebral disc, cervical Osteoarthritis of acromioclavicular joint Osteoporosis Retinal ischemia Stroke syndrome Trochanteric bursitis of left hip Chest pain Schatzki's ring Change in bowel habits Nocturia Family History Problem Relation Age of Onset Other (see comment) Mother osteoporosis Cancer Paternal Grandmother "stomach" Diabetes Paternal Grandmother Breast cancer Maternal Aunt Diabetes Paternal Grandfather Past Surgical History: Procedure Laterality Date BREAST REDUCTION SURGERY 1993 bilateral CATARACT REMOVAL 08/2016 COLONOSCOPY 10/25/12 COLONOSCOPY N/A 04/23/2018 Procedure: COLONOSCOPY; Surgeon: Silvano Kaiser MD; Location: [facility] MEDICAL PROCEDURE UNIT ESOPHAGEAL DILATATION 2012 Dr. Kaiser HYSTERECTOMY THYROID SURGERY hemithyroidectomy - right TOTAL KNEE ARTHROPLASTY May, right, partial UPPER GASTROINTESTINAL ENDOSCOPY 10/25/12 next due 10/2013 UPPER GASTROINTESTINAL ENDOSCOPY N/A 03/05/2016 Procedure: EGD; Surgeon: Silvano Kaiser MD; Location: [facility] MEDICAL PROCEDURE UNIT UPPER GASTROINTESTINAL ENDOSCOPY N/A 02/03/2017 Procedure: EGD; Surgeon: Silvano Kaiser MD; Location: [facility] MEDICAL PROCEDURE UNIT UPPER GASTROINTESTINAL ENDOSCOPY N/A 04/23/2018 Procedure: EGD; Surgeon: Silvano Kaiser MD; Location: [facility] MEDICAL PROCEDURE UNIT Social History Socioeconomic History Marital status: Spouse name: Not on file Number of children: Not on file Years of education: Not on file Highest education level: Not on file Social Needs Financial resource strain: Not on file Food insecurity - worry: Not on file Food insecurity - inability: Not on file Transportation needs - medical: Not on file Transportation needs - non-medical: Not on file Occupational History Not on file Tobacco Use Smoking status: Never Smoker Smokeless tobacco: Never Used Substance and Sexual Activity Alcohol use: Yes Alcohol/week: 0.6 - 1.2 oz Types: 1 - 2 Glasses of wine per week Frequency: 2-4 times a month Drinks per session: 1 or 2 Binge frequency: Never Drug use: No Sexual activity: Yes Partners: Male control/protection: Post-menopausal, Surgical Other Topics Concern Not on file Social History Narrative Not on file Allergies Allergen Reactions Cephalexin Hives Hives in throat Iodine Hives IV contrast - "I was in the hospital and didn't wake up for three days" Meloxicam Swelling and Rash Swelling of throat Penicillins Hives and Swelling Throat swelling Rivaroxaban Nausea And Vomiting and Swelling AKA "Xeralto" Sulfa Antibiotics Hives and Swelling Cefazolin Hives and Rash [place] Hives and Rash Review of Systems Constitutional: Positive for fatigue. Respiratory: Negative. Cardiovascular: Negative. Objective: Vitals: BP 140/62 Comment: RIGHT arm, adult cuff. | Pulse 62 | Resp 15 | Ht 1.549 m (5' 1") | Wt 73.5 kg (162 lb) | LMP (LMP Unknown) | SpO2 98% | ? No | BMI 30.61 kg/m Physical Exam Constitutional: She is oriented to person, place, and time. She appears well-developed and well-nourished. HENT: Head: Normocephalic and atraumatic. Neck: Normal carotid pulses present. Carotid bruit is not present. Cardiovascular: Normal rate, regular rhythm and normal heart sounds. Pulmonary/Chest: Effort normal and breath sounds normal. Neurological: She is alert and oriented to person, place, and time. Psychiatric: She has a normal mood and affect. Her behavior is normal. Judgment and thought content normal. Entered by Mercedes See CNA 2, [facility], acting as scribe for Dr. Maryjane DO The documentation recorded by the scribe accurately reflects the service I personally perfo ed and the decisions made by me. Electronically signed by: Dr. Farooq Wesley DO 09/28/2018 14:17 documented in this encounter Plan of Treatment +--------+---------+ + + + | Date | Type | Specialty | Care Team | Description | +--------+---------+ + + + | 10/04/ | Office | Primary Care | Farooq Wesley | | | 2020 | Visit | | E, DO [address] | | | | | | [place], [place] | | | | | | [address] | | | | | | [phone] | | | | | | | | +--------+---------+ + + + documented as of this encounter Visit Diagnoses + + | Diagnosis | + + | Essential hypertension, benign - Primary | + + | Bradycardia Other specified cardiac dysrhythmias | + + documented in this encounter
--- OUTSIDE RECORDS SUMMARY | ~2019-09-21 | XMS | Encounter Summary ---
Demographics + + + | Address | [address] | | | [place] [address] | + + + | Home Phone | | + + + | Preferred Language | Unknown | + + + | Marital Status | | + + + | Adventist Affiliation | 1028 | + + + | Race | Unknown | + + + | Ethnic Group | Unknown | + + + Author + + + | Author | [facility] | | | and [place] | + + + | Organization | [facility] | | | and [place] | + + + | Address | Unknown | + + + | Phone | Unavailable | + + + Support + + + + + | Name | Relationship | Address | Phone | + + + + + | Prashanth Vuong | ECON | [address] | | | | | [place] | | | | | [address] | | + + + + + Care Team Providers + +------+ + | Care Belt Changer Name | Role | Phone | + +------+ + | Farooq Wesley DO | PCP | | + +------+ + Reason for Visit + + + | Reason | Comments | + + + | Medication Refill | | + + + Encounter Details +--------+--------+ + + + | Date | Type | Department | Care Team | Description | +--------+--------+ + + + | 11/18/ | Refill | [facility] | Emili Frye NP | Medication Refill | | 2018 | | [facility] | [address] [place] [address] | | | | | MEDICAL CLINIC [address] | [facility] [place] | | | | | [address] [place], | [address] | | | | | [place] [address] | [phone] | | | | | [phone] | | | +--------+--------+ + + + Social History + +-------+ [...] + + documented as of this encounter Miscellaneous Notes Telephone Encounter - Marlene Srivastava CC CMA - 11/18/2017 1:43 PM PDTFormatting of this no te might be different from the original. Received refill request from [facility] Patient was last seen on Recent Visits None . Requested Prescriptions Pending Prescriptions Disp Refills losartan-hydrochlorothiazide (HYZAAR) 100-25 MG per tablet [Pharmacy Med Name: Losartan Potassium-HCTZ Oral Tablet 100-25 MG] 30 tablet 0 Sig: TAKE ONE TABLET BY MOUTH EVERY DAY Patient's last refill was done 10/21/17. Other associated documentation for review None RICHARD De La Torre CMA documented in this encounter Plan of Treatment +--------+---------+ + + + | Date | Type | Specialty | Care Team | Description | +--------+---------+ + + + | 10/04/ | Office | Primary Care | Farooq Wesley | | | 2019 | Visit | | [address] | | | | | | [place] | | | | | | [address] | | | | | | [phone] | | | | | | | | +--------+---------+ + + + documented as of this encounter Visit Diagnoses Not on filedocumented in this encounter"
--- OUTSIDE RECORDS SUMMARY | ~2019-09-21 | XMS | Encounter Summary ---
Demographics + + + | Address | [address] | | | [place] [address] | + + + | Home Phone | | + + + | Preferred Language | Unknown | + + + | Marital Status | Single | + + + | Amish Affiliation | Unknown | + + + | Race | Unknown | + + + | Ethnic Group | Other Race | + + + Author + + + | Author | [facility] | + + + | Organization | [facility] | + + + | Address | Unknown | + + + | Phone | Unavailable | + + + Support + + +---------+ + | Name | Relationship | Address | Phone | + + +---------+ + | None None | ECON | Unknown | Unavailable | + + +---------+ + Care Team Providers + +------+ + | Care Warp Hanger Name | Role | Phone | + +------+ + | No Pcp Per Patient | PCP | Unavailable | + +------+ + Reason for Visit + + + | Reason | Comments | + + + | Incontinence | | + + + Encounter Details +--------+---------+ + + + | Date | Type | Department | Care Team | Description | +--------+---------+ + + + | 01/27/ | Office [facility] | Melba Banks MD | Incontinence of | | 2005 | Visit | [facility] | | Urine (Primary Dx); | | | | [address] | | Urgency of | | | | [address] | | Urination; Urge | | | | Pavilion, 7th floor | | Incontinence | | | | [place], [place] | | | | | | [address] | | | | | | [phone] | | | +--------+---------+ + + + Social History + +-------+ +--------+------+ | Tobacco Use | Types | Packs/Day | Years | Date | | | | | Used | | + +-------+ +--------+------+ | Never Assessed | | | | | + +-------+ +--------+------+ + + + | Sex Assigned at [...] + + + | Blood Pressure | 140/80 | 01/27/2006 2:33 PM | | | | | PST | | + + + + + | Pulse | 78 | 01/27/2006 2:33 PM | | | | | PST [...] + + + + | Weight | 90.3 kg (199 lb 1.6 | 01/27/2006 2:33 PM | | | | oz) | PST | | + + + + + | Height | 154.9 cm (5' 1") | 01/27/2006 2:33 PM | | | | | PST | | + + + + + | Body Mass Index | 37.62 | 01/27/2006 2:33 PM | | | | | PST | | + + + + + documented in this encounter Progress Melba Perez - 02/05/2006 5:14 PM PSTI have seen and examined the patient and I agree wit h the plan by Dr. Umanzor. IRupa Gifford - 01/27/2006 3:03 PM PSTLita Vuong is a 65 y.o. referred by JAMAR BUTTS MD For the chief complaint of urinary incontinence. Notes incontiennce for last 3-4 years. Initially not troublesome - worse over last year an d a half. Changing pantyliner 2x daily. + occasional large leaks. Usually associated with a strong urge to go to the bathroom. No leak with cough or sneeze. Difficulty with intercourse - only when on top or on her left side - otherwise no difficult y. No sensation of bulge. No problems with constipation - has increased problem with losing stool. Strong fecal urge ncy and loses stool on the way to the toilet. Mostly dietary fiber. UTD on colonoscopy. Has not tried medications at this time; no Physical Therapy, does not do kegels on a regula r basis. Hx hysterectomy for atypical endometrial hyperplasia vs abnl fibroid. At that time had a b ladder and rectum repair. Unsure of details of the surgery. Paulina Balderas - 01/27/2006 2:58 PM PST See File Maker Report in [facility]. Post Voiding Residual: Amount Voided 250 ml Post Void 60 ml documented in this encounte r Plan of Treatment + + +--------+ + + | Name | Type | Priori | Associated Diagnoses | Order Schedule | | | | ty | | | + + +--------+ + + | IN | Procedures | Routin | Incontinence of | Ordered: 01/27/2006 | | INSERT,NON-INDWELLIN | | e | Urine | | | G BLADDER CATHET* | | | | | + + +--------+ + + documented as of this encounter Procedures + +--------+ + + + | Procedure Name | Priori | Date/Time | Associated Diagnosis | Comments | | | ty | | | | + +--------+ + + + | UA, DIPSTICK ONLY | Routin | 01/27/2006 | Incontinence of | Results for this | | | e | 2:57 PM | Urine | procedure are in the | | | | PST | | results section. | + +--------+ + + + documented in this encounter Results UA, DIPSTICK ONLY (01/27/2006 2:57 PM PST) + +--------+ + + + | Component | Value | Ref Range | Performed | Pathologist | | | | | At | Signature | + +--------+ + + + | COLOR(UR) | Yellow | | [facility] | | | | | | OF CARE | | | | | | TESTS | | + +--------+ + + + | APPEARANCE | Clear | | [facility] | | | | | | OF CARE | | | | | | TESTS | | + +--------+ + + + | LEUKOCYTE | Neg | | [facility] | | | ESTERASE | | | OF CARE | | | | | | TESTS | | + +--------+ + + + | NITRITES | Neg | | [facility] | | | | | | OF CARE | | | | | | TESTS | | + +--------+ + + + | UROBILINOGE | Norm | 0.2 - 1.0 | [facility] | | | N | | YANELY UNITS | OF CARE | | | | | | TESTS | | + +--------+ + + + | PROTEIN(LAB | Neg | mg/dL | [facility] | | | ) | | | OF CARE | | | | | | TESTS | | + +--------+ + + + | PH(UR) | 5.0 | 5.0 - 8.5 | [facility] | | | | | | OF CARE | | | | | | TESTS | | + +--------+ + + + | BLOOD | Neg | | [facility] | | | | | | OF CARE | | | | | | TESTS | | + +--------+ + + + | SPECIFIC | 1.005 | 1.004 - 1.030 | [facility] | | | GRAVITY | | | OF CARE | | | | | | TESTS | | + +--------+ + + + | KETONES | Neg | mg/dL | [facility] | | | | | | OF CARE | | | | | | TESTS | | + +--------+ + + + | BILIRUBIN | Neg | | [facility] | | | | | | OF CARE | | | | | | TESTS | | + +--------+ + + + | GLUCOSE(UR) | Neg | mg/dL | [facility] | | | | | | OF CARE | | | | | | TESTS | | + +--------+ + + + + + | Specimen | + + | Urine - Voided | + + + + + + + | Performing | Address | City/State/Zipcode | Phone Number | | Organization | | | | + + + + + | [facility] | [address] | [place], [place] | | | [facility] | [address] | [address] | | | TESTS | | | | + + + + + | [facility] | [address] | [place], [place] | | | TESTS | [facility] | [address] | | + + + + + documented in this encounter Visit Diagnoses + + | Diagnosis | + + | Incontinence of urine - Primary Unspecified urinary incontinence | + + | Urgency of urination | + + | Urge incontinence | + + documented in this encounter
--- OUTSIDE RECORDS SUMMARY | ~2019-09-21 | XMS | Encounter Summary ---
Demographics + + + | Address | [address] | | | [place] [address] | + + + | Home Phone | | + + + | Preferred Language | Unknown | + + + | Marital Status | | + + + | Mandaen Affiliation | 1028 | + + + | Race | Unknown | + + + | Ethnic Group | Unknown | + + + Author + + + | Author | [facility] | | | and [place] | + + + | Organization | [facility] | | | and [place] | + + + | Address | Unknown | + + + | Phone | Unavailable | + + + Support + + + + + | Name | Relationship | Address | Phone | + + + + + | Prashanth Vuong | ECON | [address] | | | | | [place] | | | | | [address] | | + + + + + Care Team Providers + +------+ + | Care Mill Operator Head Name | Role | Phone | + +------+ + | Farooq Wesley DO | PCP | | + +------+ + Reason for Visit + +--------+ + | Reason | Onset | Comments | | | Date | | + +--------+ + | Follow-up | 02/24/ | [facility] F/u | | | 2018 | | + +--------+ + Encounter Details +--------+ + + + + | Date | Type | Department | Care Team | Description | +--------+ + + + + | 02/24/ | Telephone | [facility] | Farooq Wesley | Follow-up (DM F/u) | | 2019 | | [facility] | E, DO [address] | | | | | [facility] [address] | [place], [place] | | | | [address] [facility] | [address] | | | | | [place] [address] | [phone] | | | | | [phone] | | | +--------+ + + + [...] this encounter Miscellaneous Notes Telephone Encounter - Uli Coburn CC CMA - 02/24/2019 5:17 PM PSTPt left clinic after appt today w/o check-out. May need to be [facility] f/u [facility]t. Will check w/PCP. RICHARD Zapata CMA documented in this encounter Plan of Treatment +--------+---------+ + + + | Date | Type | Specialty | Care Team | Description | +--------+---------+ + + + | 10/04/ | Office | Primary Care | Farooq Wesley | | | 2019 | Visit | | [place] [address] | | | | | | [place] | | | | | | [address] | | | | | | [phone] | | | | | | | | +--------+---------+ + + + documented as of this encounter Visit Diagnoses Not on filedocumented in this encounter"
--- OUTSIDE RECORDS SUMMARY | ~2019-09-21 | XMS | Encounter Summary ---
Demographics + + + | Address | [address] | | | [place] [address] | + + + | Home Phone | | + + + | Preferred Language | Unknown | + + + | Marital Status | | + + + | Evangelical Affiliation | 1028 | + + + | Race | Unknown | + + + | Ethnic Group | Unknown | + + + Author + + + | Author | [facility] | | | and [place] | + + + | Organization | [facility] | | | and [place] | + + + | Address | Unknown | + + + | Phone | Unavailable | + + + Support + + + + + | Name | Relationship | Address | Phone | + + + + + | Prashanth Vuong | ECON | [address] | | | | | [place] | | | | | [address] | | + + + + + Care Team Providers + +------+ + | Care Duplex Trimmer Name | Role | Phone | + [...] | Specialty | Gastroenterol | Diagnoses | Harri, | Harri, | | | Services | ogy | | Silvano Rose MD | Silvano Rose MD | | | Required | | Gastroesopha | [address], | | | | | geal reflux | [place], [place] [address] | | | | | disease, | [address] [place] | [place], | | | | | esophagitis | [place], [place] | [place] [address] | | | | | presence not | [phone] | Phone: | | | | | specified | Phone: | [phone] | | | | | Dysphagia, | [phone] | Fax: | | | | | unspecified | Fax: | [phone] | | | | | type | [phone] | | | | | | Procedures | | | | | | | NE | | | | | | | ESOPHAGOGAST | | | | | | | RODUODENOSCO | | | | | | | PY TRANSORAL | | | | | | | DIAGNOSTIC | | | | | | | NE EGD | | | | | | | TRANSORAL | | | | | | | BIOPSY | | | | | | | SINGLE/MULTI | | | | | | | PLE | | | +--------+ + + + + + Reason for Visit + +--------+ + | Reason | Onset | Comments | | | Date | | + +--------+ + | Appointment | 02/28/ | EGD | | | 2015 | | + +--------+ + Encounter Details +--------+ + + + + | Date | Type | Department | Care Team | Description | +--------+ + + + + | 02/28/ | Telephone | [facility] | Silvano Kaiser MD | Appointment (EGD) | | 2015 | | GASTROENTEROLOGY | [address], [place] | | | | | [address] [place] | [address] [place] | | | | | [address] [place], [place] | [address] | | | | | [address] | | | | | | [phone] | | | +--------+ + + + [...] this encounter Miscellaneous Notes Telephone Encounter - Prudence Denny RN - 02/29/2016 9:07 AM PSTCalled patient and sche duled for EGD with IVCS on 03/05/[address] Kaiser at [facility]. No family history of es ophageal cancer, last screen was 2012 showing gastric polyps, hiatal hernia, and mild Umesh ki ring. Patient has history of GERD and dysphagia. Reviewed surgical history, medications a nd allergies, reviewed instructions, information mailed to patient. Completed OR booking, re fara, notes to [facility]. Advised patient to hold aspirin 3 days prior and take a half dose o f metformin and diabetic medications the night before and hold the morning of the procedure. Patient verbalized understanding. documented in this e ncounter Plan of Treatment +--------+---------+ + + + | Date | Type | Specialty | Care Team | Description | +--------+---------+ + + + | 10/04/ | Office | Primary Care | Farooq Wesley | | | 2020 | Visit | | E, DO [address] | | | | | | [place], [place] | | | | | | [address] | | | | | | [phone] | | | | | | | | +--------+---------+ + + + + + +--------+ + + | Name | Type | Priori | Associated Diagnoses | Order Schedule | | | | ty | | | + + +--------+ + + | Procedure | Outpatient | Routin | Gastroesophageal | Expected: 03/05/2016 | | [id number] | Referral | e | Reflux Disease, | (Approximate), | | | | | Esophagitis Presence | Expires: 02/28/2017 | | | | | Not Specified | | | | | | Dysphagia, | | | | | | Unspecified Type | | + + +--------+ + + documented as of this encounter Visit Diagnoses + + | Diagnosis | + + | Gastroesophageal reflux disease, esophagitis presence not specified - Primary | + + | Dysphagia, unspecified type | + + documented in this encounter"
--- OUTSIDE RECORDS SUMMARY | ~2019-09-21 | XMS | Encounter Summary ---
Demographics + + + | Address | [address] | | | [place] [address] | + + + | Home Phone | | + + + | Preferred Language | Unknown | + + + | Marital Status | Single | + + + | Scientologist Affiliation | Unknown | + + + | Race | Unknown | + + + | Ethnic Group | Other Race | + + + Author + + + | Author | [facility] | + + + | Organization | [facility] | + + + | Address | Unknown | + + + | Phone | Unavailable | + + + Support + + +---------+ + | Name | Relationship | Address | Phone | + + +---------+ + | None None | ECON | Unknown | Unavailable | + + +---------+ + Care Team Providers + +------+ + | Care Regional Cra Name | Role | Phone | + +------+ + | Farooq Wesley DO | PCP | | + +------+ + Encounter Details +--------+ + + + + | Date | Type | Department | Care Team | Description | +--------+ + + + + | 01/06/ | Document-Sc | UNKNOWN DEPARTMENT | Other, Faculty | | | 2011 | anned | [address] | [phone] | | | | | [address] | | | | | | [place], [place] | | | | | | [address] | | | +--------+ + + + + Social History + +-------+ +--------+------+ | Tobacco Use | Types | Packs/Day | Years | Date | | | | | Used | | + +-------+ +--------+------+ | Never Smoker | | | | | + +-------+ +--------+------+ + + +---------+ + | Alcohol Use | Drinks/Week | oz/Week | Comments | + + +---------+ + | Yes | | | wine sometimes | + + +---------+ + + + [...] as of this encounter Plan of Treatment Not on filedocumented as of this encounter Procedures + +--------+ + + + | Procedure Name | Priori | Date/Time | Associated Diagnosis | Comments | | | ty | | | | + +--------+ + + + | RADIOLOGY | | 01/07/2012 | | Results for this | | | | 12:00 AM | | procedure are in the | | | | PDT | | results section. | + +--------+ + + + | RADIOLOGY | | 01/07/2012 | | Results for this | | | | 12:00 AM | | procedure are in the | | | | PDT | | results section. | + +--------+ + + + documented in this encounter Results RADIOLOGY (01/07/2012 12:00 AM PDT) + + + | Narrative | Performed At | + + + | | | | | | + + + + + | Procedure Note | + + | Other, Faculty - 01/30/2012 10:47 AM PST | + + RADIOLOGY (01/07/2012 12:00 AM PDT) + + + | Narrative | Performed At | + + + | | | | | | + + + + + | Procedure Note | + + | Cristal Guajardo - 01/08/2012 12:44 PM PDT | + + documented in this encounter Visit Diagnoses Not on filedocumented in this encounter"
--- OUTSIDE RECORDS SUMMARY | ~2019-09-21 | XMS | Encounter Summary ---
Demographics + + + | Address | [address] | | | [place] [address] | + + + | Home Phone | | + + + | Preferred Language | Unknown | + + + | Marital Status | | + + + | Yarsani Affiliation | 1028 | + + + | Race | Unknown | + + + | Ethnic Group | Unknown | + + + Author + + + | Author | [facility] | | | and [place] | + + + | Organization | [facility] | | | and [place] | + + + | Address | Unknown | + + + | Phone | Unavailable | + + + Support + + + + + | Name | Relationship | Address | Phone | + + + + + | Prashanth Vuong | ECON | [address] | | | | | [place] | | | | | [address] | | + + + + + Care Team Providers + +------+ + | Care Candy Packer Name | Role | Phone | + +------+ + PCP | Unavailable | + +------+ + Encounter Details +--------+ + + + + | Date | Type | Department | Care Team | Description | +--------+ + + + + | 06/09/ | Hospital | [facility] | Adalberto Bradley MD | | | 2006 - | Encounter | [address] | [address] | | | | [address], | [address] | | | 06/12/ | | [place] [address] | [place] [address] | | | 2006 | | [phone] | [phone] | | | | | | | | +--------+ + + + [...] [place] | | | | | | [address] | | | | | | [phone] | | | | | | | | +--------+---------+ + + + documented as of this encounter Visit Diagnoses Not on filedocumented in this encounter"
--- OUTSIDE RECORDS SUMMARY | ~2019-09-21 | XMS | Encounter Summary ---
Demographics + + + | Address | [address] | | | [place] [address] | + + + | Home Phone | | + + + | Preferred Language | Unknown | + + + | Marital Status | | + + + | Confucianist Affiliation | 1028 | + + + | Race | Unknown | + + + | Ethnic Group | Unknown | + + + Author + + + | Author | [facility] | | | and [place] | + + + | Organization | [facility] | | | and [place] | + + + | Address | Unknown | + + + | Phone | Unavailable | + + + Support + + + + + | Name | Relationship | Address | Phone | + + + + + | Prashanth Vuong | ECON | [address] | | | | | [place] | | | | | [address] | | + + + + + Care Team Providers + +------+ + | Care Hardware Engineering Manager Name | Role | Phone | + +------+ + PCP | Unavailable | + +------+ + Encounter Details +--------+ + + + + | Date | Type | Department | Care Team | Description | +--------+ + + + + | 12/21/ | Abstract | [facility] | Provider, | | | 2011 | | Anti-Coagulation | [address] | | | | | Clinic | [address] | | | | | | [place] [address] | | +--------+ + + + + [...] [place] | | | | | | [address] | | | | | | [phone] | | | | | | | | +--------+---------+ + + + documented as of this encounter Visit Diagnoses Not on filedocumented in this encounter"
--- OUTSIDE RECORDS SUMMARY | ~2019-09-21 | XMS | Encounter Summary ---
Demographics + + + | Address | [address] | | | [place] [address] | + + + | Home Phone | | + + + | Preferred Language | Unknown | + + + | Marital Status | | + + + | Buddhist Affiliation | 1028 | + + + | Race | Unknown | + + + | Ethnic Group | Unknown | + + + Author + + + | Author | [facility] | | | and [place] | + + + | Organization | [facility] | | | and [place] | + + + | Address | Unknown | + + + | Phone | Unavailable | + + + Support + + + + + | Name | Relationship | Address | Phone | + + + + + | Prashanth Vuong | ECON | [address] | | | | | [place] | | | | | [address] | | + + + + + Care Team Providers + +------+ + | Care Forensic Ballistics Expert Name | Role | Phone | + +------+ + | Farooq Wesley DO | PCP | | + +------+ + Encounter Details +--------+ + + + + | Date | Type | Department | Care Team | Description | +--------+ + + + + | 12/19/ | Abstract | [facility] | Silvano Kaiser MD | | | 2013 | | GASTROENTEROLOGY | [address] [place] | | | | | [address] [place] | [address] [place], [place] | | | | | [address] [place], [place] | [address] | | | | | [address] | | | | | | [phone] | | | +--------+ + + + [...] [place] | | | | | | [address] | | | | | | [phone] | | | | | | | | +--------+---------+ + + + documented as of this encounter Visit Diagnoses Not on filedocumented in this encounter"
--- OUTSIDE RECORDS SUMMARY | ~2019-09-21 | XMS | Encounter Summary ---
Demographics + + + | Address | [address] | | | [place] [address] | + + + | Home Phone | | + + + | Preferred Language | Unknown | + + + | Marital Status | | + + + | Holiness Affiliation | 1028 | + + + | Race | Unknown | + + + | Ethnic Group | Unknown | + + + Author + + + | Author | [facility] | | | and [place] | + + + | Organization | [facility] | | | and [place] | + + + | Address | Unknown | + + + | Phone | Unavailable | + + + Support + + + + + | Name | Relationship | Address | Phone | + + + + + | Prashanth Casey | ECON | [address] | | | | | [place] | | | | | [address] | | + + + + + Care Team Providers + +------+ + | Care Financial Advisor Name | Role | Phone | + +------+ + | Farooq Wesley DO | PCP | | + +------+ + Encounter Details +--------+ + + + + | Date | Type | Department | Care Team | Description | +--------+ + + + + | 10/25/ | Hospital | [facility] | Silvano Kaiser MD | | | 2013 - | Encounter | MED CTR [facility] INTRA OP | [address] [place] | | | | | [address] | [address] [place], [place] | | | 10/26/ | | [place] | [address] | | | 2012 | | [address] | | | | | | [phone] | | | +--------+ + + + [...] | | 0 | | | | losartan-hydrochloro | mouth Daily. | | | | 8 | | thiazide (HYZAAR) | | | [...] documented as of this encounter Miscellaneous Notes Op Note - Silvano Kaiser MD - 10/25/2012 7:10 AM PDT [place], [place] [id number] Patient Name: LTIA CASEY Provider: Silvano Kaiser MD [id number] 1940 Patient Name: Lita Yevgeniy Gender: F Procedure Date: 10/25/2012 7:10 AM Date of : 1940 Age: 72 Admit Type: Outpatient Room: Endo Room 1 Note Status: Finalized Attending MD: Silvano Kaiser MD Procedure: Upper GI endoscopy Indications: Esophageal dysphagia Providers: Silvano Kaiser MD, Herminio Epps, RN, Amie Fraser, Sewing Machine Operator Zipper Referring MD: Morris Wesley DO Medicines: Midazolam 5 mg IV, Meperidine 50 mg IV, Cetacaine spray, Oxygen 4 liters/min nasocannula Complications: No immediate complications. Estimated blood loss: Minimal. Procedure: - Prior to the procedure, a History and Physical was performed, and patient medications, allergies and sensitivities were reviewed. The patient's tolerance of previous anesthesia was reviewed. - The risks and benefits of the procedure and the sedation options and risks were discussed with the patient. All questions were answered and informed consent was obtained. - Patient identification and proposed procedure were verified prior to the procedure by the physician, the nurse and the emissions repair technician. The procedure was verified in the endoscopy suite. - Airway Examination: small/crowded oropharyngeal airway and Mallampati Class III (part of the uvula and soft palate visualized). - Mental Status Examination: anxious. - CV Examination: normal. - Respiratory Examination: clear to auscultation. - ASA Grade Assessment: II - A patient with mild systemic disease. - After reviewing the risks and benefits, the patient was deemed in satisfactory condition to undergo the procedure. - The anesthesia plan was to use moderate sedation/analgesia (conscious sedation). - Immediately prior to administration of medications, the patient was re-assessed for adequacy to receive sedatives. - The heart rate, respiratory rate, oxygen saturations, blood pressure, adequacy of pulmonary ventilation, and response to care were monitored throughout the procedure. - The physical status of the patient was re-assessed after the procedure. After obtaining informed consent, the endoscope was passed under direct vision. Throughout the procedure, the patient's blood pressure, pulse, and oxygen saturations were monitored continuously. The endoscope was introduced through the mouth, and advanced to the third part of duodenum. The upper GI endoscopy was accomplished without difficulty. The patient tolerated the procedure well. Findings: The cricopharyngeus, upper third of the esophagus, middle third of the esophagus and lower third of the esophagus were normal. The Z-line was regular and was found 35 cm from the incisors. A mild Schatzki ring (acquired) was found at the gastroesophageal junction. A TTS dilator was passed through the scope. Dilation with an 18-19-20 mm pyloric balloon dilator was performed. A small hiatus hernia was present. A few small sessile polyps with no bleeding and no stigmata of recent bleeding were found in the gastric fundus and in the gastric body. The duodenal bulb, first part of the duodenum, 2nd part of the duodenum, area of the papilla and 3rd part of the duodenum were normal. The retroflexed view confirmed previous findings, Impression: - Normal at the cricopharyngeus, in the upper third of the esophagus, in the middle third of the esophagus and in the lower third of the esophagus. - Z-line regular, 35 cm from the incisors. - At the cricopharyngeus, in the upper third of the esophagus, in the middle third of the esophagus, in the lower third of the esophagus and mild Schatzki ring Dilated - Hiatus hernia. - A few gastric polyps. - Normal duodenal bulb, first part of the duodenum, 2nd part of the duodenum, area of the papilla and 3rd part of the duodenum. Recommendation: - Discharge patient to home (ambulatory). - Mechanical soft diet today. - Follow an antireflux regimen indefinitely. - Continue present medications. - Repeat the upper endoscopy for retreatment. - Return to primary care physician as previously scheduled. - Telephone GI clinic if symptomatic. Silvano Kaiser MD Signed Date: 10/25/2012 8:18 AM Number of Addenda: 0 Note initiated on 10/25/2012 7:10 AM Scope Withdrawal Time: N/A Total Procedure Duration Time: 07 minutes 37 seconds Silvano Kaiser MD [id number] documented in this e ncounter Plan of [...] [place] | | | | | | [address] | | | | | | [phone] | | | | | | | | +--------+---------+ + + + documented as of this encounter Visit Diagnoses Not on filedocumented in this encounter"
--- OUTSIDE RECORDS SUMMARY | ~2019-09-21 | XMS | Clinical Summary ---
Demographics + + + | Address | [address] | | | [place] [address] | + + + | Home Phone | | + + + | Preferred Language | Unknown | + + + | Marital Status | Single | + + + | Sabianism Affiliation | Unknown | + + + | Race | Unknown | + + + | Ethnic Group | Other Race | + + + Author + + + | Author | [facility] | + + + | Organization | [facility] | + + + | Address | Unknown | + + + | Phone | Unavailable | + + + Support + + +---------+ + | Name | Relationship | Address | Phone | + + +---------+ + | None None | ECON | Unknown | Unavailable | + + +---------+ + Care Team Providers + +------+ + | Care Utility Gelatin Maker Name | Role | Phone | + +------+ + | Farooq Wesley DO | PCP | | + +------+ + Source Comments [facility] is fully live on both [facility] Amb[facility] and [facility] InPatient.[facility] Allergies + + + + + + | Active Allergy | Reactions | Severity | Noted | Comments | | | | | Date | | + + + + + + | Iodine | | High | 01/31/20 | "Almost when | | | | | 06 | injected for a test" | + + + + + + | Penicillin G | | | 01/31/20 | "too much as a | | | | | 06 | child" | + + + + + + Medications + + + +---------+------+------+-------+ | Medication | Sig | Dispensed | Refills | Star | End | Statu | | | | | | t | Date | s | | | | | | Date | | | + + + +---------+------+------+-------+ | PREVACID 30 MG CAP | 1 po daily | | 0 | | | Activ | | | | | | | | e | + + + +---------+------+------+-------+ | LIPITOR 10 MG TAB | take 1 tab every | | 0 | | | Activ | | | thursday, thursday | | | | | e | | | and thursday | | | | | | + + + +---------+------+------+-------+ | ASPIRIN 81 MG TAB | 1 po daily | | 0 | | | Activ | | | | | | | | e | + + + +---------+------+------+-------+ | MULTIPLE VITAMIN | 1 po daily | | 0 | | | Activ | | TAB | | | | | | e | + + + +---------+------+------+-------+ | | Take 1 Tab by mouth | | 0 | | | Activ | | lisinopril-hydrochlo | once daily. | | | | | e | | rothiazide 20-25 mg | | | | | | | | Oral tablet | | | | | | | + + + +---------+------+------+-------+ | metFORMIN SR 1,000 | Take 1,000 mg by | | 0 | | | Activ | | mg Oral tablet,ER | mouth two times | | | | | e | | satinder.retention 24 hr | daily. | | | | | | + + + +---------+------+------+-------+ | levothyroxine | Take 75 mcg by mouth | | 0 | | | Activ | | (SYNTHROID) 75 mcg | once daily. 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 | + + + + + | Overview: ICD10 | + + + + + | Dysphonia | 02/15/2012 | + + + | Pharyngeal dysphagia | 02/15/2012 | + + + | Urge incontinence | 01/27/2006 | + + + Family History + + +------+ + | Medical History | Relation | Name | Comments | + + +------+ + | Cancer | Maternal | | Breast | | | Aunt | | | + + +------+ + | Stroke | Maternal | | | | | Aunt | | | + + +------+ + | Diabetes | Maternal | | | | | Grandmoth | | | | | er | | | + + +------+ + | Hypertension | Mother | | | + + +------+ + | Stroke | Mother | | | + + +------+ + | Diabetes | Paternal | | | | | Grandfath | | | | | er | | | + + +------+ + | Cancer | Paternal | | Stomach | | | Grandmoth | | | | | er | | | + + +------+ + | Diabetes | Paternal | | | | | Grandmoth | | | | | er | | | + + +------+ + | Thyroid | Son | | | + + +------+ + | Movement Disorder | Neg Hx | | | + + +------+ + | Tremor | Neg Hx | | | + + +------+ + + +------+--------+ + | Relation | Name | Status | Comments | + +------+--------+ + | Maternal Aunt | | | | + +------+--------+ + | Maternal Grandmother | | | | + +------+--------+ + | Mother | | | | + +------+--------+ + | Paternal Grandfather | | | | + +------+--------+ + | Paternal Grandmother | | | | + +------+--------+ + | Son | | | | + +------+--------+ + [...] recent travel history available. | + + Last Filed Vital Signs + + + + + | Vital Sign | Reading | Time Taken | Comments | + + + + + | Blood Pressure | 116/77 | 01/07/2012 3:21 PM | | | | | PDT | | + + + + + | Pulse | 80 | 01/07/2012 3:21 PM | | | | | PDT [...] + + + + | Weight | 84.8 kg (187 lb) | 01/07/2012 3:21 PM | | | | | PDT | | + + + + + | Height | 156.2 cm (5' 1.5") | 01/07/2012 3:21 PM | | | | | PDT | | + + + + + | Body Mass Index | 34.76 | 01/07/2012 3:21 PM | | | | | PDT | | + + + + + Plan of Treatment + + + + + | Health Maintenance | Due Date | Last Done | Comments | + + + + + | Pneumococcal | | | | | vaccination (1 of 2 | 6 | | | | - PCV13) | | | | + + + + + | Influenza (Flu) | | | | | vaccination (#1) | 9 | | | + + + + + Results Not on filefrom Last 3 Months Insurance + +--------+ +--------+ + +--------+ | Payer | Benefi | Subscriber | Effect | Phone | Address | Type | | | t Plan | ID | singh | | | | | | / | | Dates | | | | | | Group | | | | | | + +--------+ +--------+ + +--------+ | MEDICARE | MEDICA | xxxxxxxxxx | 03/23/19 | [phone] | [address] | Medica | | | RE A & | | 09-Pre | 1 | [address] | [address] | | | B | | sent | | [place] | | | | | | | | [phone] | | + +--------+ +--------+ + +--------+ | MODA MEDICARE | MODA | xxxxxxxxx | 03/12/ | [phone] | [address] | POS | | SUPPLEMENT | MEDICA | | 2015-P | 4 | [address] | | | | RE | | resent | | [place], | | | | [place]PP[place] | | | | [place] [address] | | | | MENT | | | | | | + +--------+ +--------+ + +--------+ + +--------+ +--------+ + + | Guarantor Name | Accoun | Relation to | Date | Phone | Billing Address | | | t Type | Patient | of | | | | | | | | | | + +--------+ +--------+ + + | Lita uVong | Person | Self [birth year] | [address] | | | al/Fam | | 1941 | [phone] | [address] [place] | | | [place] | | | [address] (Home) | [address] | + +--------+ +--------+ + +
--- OUTSIDE RECORDS SUMMARY | ~2019-09-21 | XMS | Encounter Summary ---
Demographics + + + | Address | [address] | | | [place] [address] | + + + | Home Phone | | + + + | Preferred Language | Unknown | + + + | Marital Status | | + + + | Evangelical Affiliation | 1028 | + + + | Race | Unknown | + + + | Ethnic Group | Unknown | + + + Author + + + | Author | [facility] | | | and [place] | + + + | Organization | [facility] | | | and [place] | + + + | Address | Unknown | + + + | Phone | Unavailable | + + + Support + + + + + | Name | Relationship | Address | Phone | + + + + + | Prashanth Vuong | ECON | [address] | | | | | [place] | | | | | [address] | | + + + + + Care Team Providers + +------+ + | Care Fast Food Shift Lead Name | Role | Phone | + +------+ + | Farooq Wesley DO | PCP | | + +------+ + Reason for Visit +--------+ + | Reason | Comments | +--------+ + | Apnea | | +--------+ + Encounter Details +--------+---------+ + + + | Date | Type | Department | Care Team | Description | +--------+---------+ + + + | 06/09/ | Office | [facility] | Oh Landrum PA | JOSSELINE on CPAP (Primary | | 2012 | Visit | SLEEP DISORDER [address] | [address] | Dx) | | | | [address] [place] | [place] | | | | | [place] [address] | [address] | | | | | [phone] | | | +--------+---------+ + + + [...] + + + | Blood Pressure | 160/82 | 06/09/2012 1:27 PM | | | | | PDT | | + + + + + | Pulse | 55 | 06/09/2012 1:27 PM | | | | | PDT | | + + + + + | Temperature | - | - | | + + + + + | Respiratory Rate | 14 | 06/09/2012 1:27 PM | | | | | PDT | | + + + + + | Oxygen Saturation | - | - | | + + + + + | Inhaled Oxygen | - | - | | | Concentration | | | | + + + + + | Weight | 86.2 kg (190 lb) | 06/09/2012 1:27 PM | | | | | PDT | | + + + + + | Height | - | - | | + + + + + | Body Mass Index | 35.32 | 04/02/2012 2:27 PM | | | | | PST | | + + + + + documented in this encounter Progress Notes Krystyna Sharma - 06/09/2012 1:25 PM PDT 06/09/12 1300 [place] Depression Inventory-II Depression Score 10 Insomnia Severity Index Insomnia Severity Index 16 [place] Sleepiness Scale Sitting and reading 2 Watching TV 1 Sitting, inactive in a public place (e.g. a theatre or a meeting) 1 As a passenger in a car for an hour without a break 0 Lying down to rest in the afternoon when circumstances permit 0 Sitting and talking to someone 0 Sitting quietly after a lunch without alcohol 1 In a car, while stopped for a few minutes in traffic 0 Total score 5 SF-36v2 Score PF 52.82 RP 27.47 BP 41.41 GH 41.02 VT 39.6 SF 29.36 RE 40.33 MH 41.56 PCS 41.89 MCS 36.87 oram, ELYSE Leo - 1:10 PM PDT Subjective: Patient ID: Lita Vuong is a 72 y.o. female. HPI last office visit was: 03/05/2012 date of polysomnography: 11/14/2005 AHI: 17.5 O2%: 87% Machine type: ResMed S9 with nasal mask obtained from: [facility] [place] pressure is: 5-10 cm 95%: 7.0 cm Maximum: 7.6 cm CPAP memory shows # nights >4 hours: No download 07/20 Average usage (all nights): 1.7 Average usage (nights used): AHI: N/a (no download) Lita comes in for CPAP compliance. She has not been wearing her CPAP very often during t he last two months because she has been sick. She also feels that she is not getting enough air at times. I have discussed the download and results of the paperwork in detail. She has declined in nearly all categories. She feels that this is because of her being sick recently and not be ing able to wear her CPAP regularly. She says she is feeling better and is ready to start wearing her CPAP regularly. Review of Systems Objective: Physical Exam Assessment: Problem # 1: OBSTRUCTIVE SLEEP APNEA (ICD-327.23) This controlled with CPAP. She has not been wearing her CPAP regularly because she has bee n sick. She is feeling better now. Plan: She is to continue with CPAP indefinitely. She is to return to wearing her CPAP 100% of t he time she is asleep. I will follow up again in 2 months, sooner prn. Fifteen minutes were spent [id number], w sarah the majority of time spent in counseling. Oh Landrum PA-C cc: Morris Wesley MD documented in this enco unter Miscellaneous Notes Miscellaneous - ONBASE SCAN [facility] - 06/09/2012 12:00 AM PDT iscellaneous - ONBASE SCAN [facility] - 06/09/2012 12:00 AM PDTEle ctronically signed by [facility] at 06/11/2012 7:50 AM PDTdocumented in this encounter Plan of Treatment +--------+---------+ + + + | Date | Type | Specialty | Care Team | Description | +--------+---------+ + + + | 10/04/ | Office | Primary Care | Farooq Wesley | | | 2019 | Visit | | E, DO [address] | | | | | | [place] | | | | | | [address] | | | | | | [phone] | | | | | | | | +--------+---------+ + + + documented as of this encounter Visit Diagnoses + + | Diagnosis | + + | JOSSELINE on CPAP - Primary Obstructive sleep apnea (adult) (pediatric) | + + documented in this encounter"
--- OUTSIDE RECORDS SUMMARY | ~2019-09-21 | XMS | Encounter Summary ---
Demographics + + + | Address | [address] | | | [place] [address] | + + + | Home Phone | | + + + | Preferred Language | Unknown | + + + | Marital Status | | + + + | Shinto Affiliation | 1028 | + + + | Race | Unknown | + + + | Ethnic Group | Unknown | + + + Author + + + | Author | [facility] | | | and [place] | + + + | Organization | [facility] | | | and [place] | + + + | Address | Unknown | + + + | Phone | Unavailable | + + + Support + + + + + | Name | Relationship | Address | Phone | + + + + + | Prashanth Vuong | ECON | [address] | | | | | [place] | | | | | [address] | | + + + + + Care Team Providers + +------+ + | Care Liner Worker Name | Role | Phone | + +------+ + | Farooq Wesley DO | PCP | | + +------+ + Reason for Visit +---------+--------+ + | Reason | Onset | Comments | | | Date | | +---------+--------+ + | Results | 01/13/ | | | | 2017 | | +---------+--------+ + Encounter Details +--------+ + + + + | Date | Type | Department | Care Team | Description | +--------+ + + + + | 01/13/ | Telephone | [place] [facility] | Ward, | Results | | 2018 | | [facility] | [facility], [facility] [address] | | | | | [facility] [address] | [facility] | | | | | [address] [facility], | [place] [address] | | | | | [place] [address] | [phone] | | | | | [phone] | | | +--------+ + + + [...] this encounter Miscellaneous Notes Telephone Encounter - Hiral Tracy CC TECHNOLOGY APPLICATIONS ENGINEER - 01/13/2018 2:10 PM PDTPatient was notifi ed and states verbal understanding. RICHARD Valente CMA elephone Encounter - Hiral Tracy CC CMA - 01/13/2018 2:10 PM PDT----- Message from FLORES Snow sent at 01/13/2018 1 3:16 PDT ----- Xray showed no acute process.Electronically signed by RICHARD Estrada CMA at 8 2:10 PM PDTdocumented in this encounter Plan of Treatment +--------+---------+ + + + | Date | Type | Specialty | Care Team | Description | +--------+---------+ + + + | 10/04/ | Office | Primary Care | Farooq Wesley | | | 2019 | Visit | | DO [place] [address] | | | | | | [place] | | | | | | [address] | | | | | | [phone] | | | | | | | | +--------+---------+ + + + documented as of this encounter Visit Diagnoses Not on filedocumented in this encounter"
--- OUTSIDE RECORDS SUMMARY | ~2019-09-21 | XMS | Encounter Summary ---
Demographics + + + | Address | [address] | | | [place] [address] | + + + | Home Phone | | + + + | Preferred Language | Unknown | + + + | Marital Status | | + + + | Yazdanism Affiliation | 1028 | + + + | Race | Unknown | + + + | Ethnic Group | Unknown | + + + Author + + + | Author | [facility] | | | and [place] | + + + | Organization | [facility] | | | and [place] | + + + | Address | Unknown | + + + | Phone | Unavailable | + + + Support + + + + + | Name | Relationship | Address | Phone | + + + + + | Prashanth Vuong | ECON | [address] | | | | | [place] | | | | | [address] | | + + + + + Care Team Providers + +------+ + | Care Legal Secretary Name | Role | Phone | + +------+ + | Farooq Wesley DO | PCP | | + +------+ + Reason for Visit + + + | Reason | Comments | + + + | Abdominal Pain | | + + + | Diarrhea | | + + + Evaluate & Treat (Routine) +--------+--------+ + + + + | Status | Reason | Specialty | Diagnoses / | Referred By | Referred To | | | | | Procedures | Contact | Contact | +--------+--------+ + + + + | Closed | | Gastroenterol | Diagnoses | Referral, | Job, | | | | ogy | stomach | Self | Silvano Rose MD | | | | | pain & | | [address], | | | | | diarrhea/pcp | | [address] | | | | | | | [place], | | | | | gale/pt/m | | [place] [address] | | | | | c | | Phone: | | | | | Procedures | | [phone] | | | | | OFFICE VISIT | | Fax: | | | | | REGULAR | | [phone] | +--------+--------+ + + + + Encounter Details +--------+---------+ + + + | Date | Type | Department | Care Team | Description | +--------+---------+ + + + | 12/20/ | Office | [facility] [place] | Silvano Kaiser MD | Abdominal pain, | | 2013 | Visit | GASTROENTEROLOGY | [address], [place] | epigastric (Primary | | | | [address] | [address] [place], [place] | Dx); Diarrhea; Full | | | | [address] [place], [place] | [address] | incontinence of | | | | [address] | | feces | | | | [phone] | | | +--------+---------+ + + + [...] + + + | Blood Pressure | 142/82 | 12/20/2013 3:20 PM | | | | | PDT | | + + + + + | Pulse | 66 | 12/20/2013 3:20 PM | | | | | PDT | | + + + + + | Temperature | - | - | | + + + + + | Respiratory Rate | 16 | 12/20/2013 3:20 PM | | | | | PDT | | + + + + + | Oxygen Saturation | - | - | | + + + + + | Inhaled Oxygen | - | - | | | Concentration | | | | + + + + + | Weight | 80.7 kg (178 lb) | 12/20/2013 3:20 PM | | | | | PDT | | + + + + + | Height | 156.2 cm (5' 1.5") | 12/20/2013 3:20 PM | | | | | PDT | | + + + + + | Body Mass Index | 33.09 | 12/20/2013 3:20 PM | | | | | PDT | | + + + + + documented in this encounter Progress Notes Silvano Kaiser MD - 12/20/2013 5:06 PM PDT Subjective: Patient ID: Lita Vuong is a 73 y.o. female. HPI Comments: Patient comes the office to discuss several gastrointestinal tract concerns. She states that she's had stomach pain for about 2 weeks. She states it is in the epigastr ic area it's a burning sensation does not radiate. She discontinued caffeine primarily diet Pepsi 2-3 cans a day and her symptoms seem to have improved. She previously was on Prevaci d 15 mg a day and now is on Nexium 20 mg a day. She reports that her symptoms may be 30% im proved. She denies any hematemesis or any melena denies nocturnal awakening but does state that her symptoms seem to be worse at night. She denies dysphasia or [place] aphasia. She lynn d an upper endoscopy in October of 2012 which showed a hiatal hernia with a Schatzki's ring w hich was dilated. H. pylori biopsy was negative. She denies any weight loss. Patient does not follow an antireflux regimen She also complains of lower abdominal cramping. She's be associated with eating healthy ma y be associated with anxiety. 10 minutes following the lower bumble cramping she'll have a loose stool with spontaneous evacuation with some incontinence. She is unable to identify a ny particular foods that may bring on the symptoms although she does mention which foods suc h as crab except her she moves her bowels daily or once every other day. She does repetitiv e progressively smaller volumes stools when she has an attack. Patient has not had any of t he loose stools for approximately 2 weeks. She is wondering if perhaps nerves are playing a role in she notices that she also has marked increase in her symptoms when she is anxious. She also takes Benadryl for hives and food allergies and notices when she takes Benadryl sh e has no episodes of diarrhea lesions weight is been stable. There is no family history of colon cancer but she does have a personal history of colonic polyps. Colonoscopy in 9 of 10 was within normal limits except for hemorrhoids tendency and tortuosity Records reviewed in [facility] medicine firm primarily hypertension hyperglycemia gas troesophageal reflux hyperlipidemia medications are reviewed laboratory done September 2012 withi n normal limits including CBC TSH and Maxi profile with slight elevation of glucose at 135 h emoglobin a.c. 6.2 Abdominal Pain Associated symptoms include arthralgias and diarrhea. Diarrhea Associated symptoms include abdominal pain and arthralgias. 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 Benign hypertension DM (diabetes mellitus) (HCC) Osteoporosis postmenopausal History of cervical cancer Past Surgical History Procedure Date Total knee arthroplasty May, right, partial Hysterectomy Upper gastrointestinal endoscopy 10/25/12 next due 10/2013 Colonoscopy 10/25/12 Thyroid surgery hemithyroidectomy - right Breast reduction surgery 1993 bilateral Family History Problem Relation Age of Onset Other (See Comment) Mother osteoporosis Cancer Paternal Grandmother "stomach" History Social History Marital Status: Spouse Name: N/A Number of Children: N/A Years of Education: N/A Social History Main Topics Smoking status: Never Smoker Smokeless tobacco: Never Used Alcohol Use: Yes Comment: one glass of wine at night Drug Use: No Sexually Active: None Other Topics Concern None Social History Narrative None Review of Systems Constitutional: Negative. HENT: Positive for hearing loss, congestion and rhinorrhea. Eyes: Negative. Respiratory: Negative. Cardiovascular: Negative. Gastrointestinal: Positive for abdominal pain and diarrhea. Genitourinary: Negative. Musculoskeletal: Positive for arthralgias. Skin: Negative. Neurological: Negative. Hematological: Negative. Psychiatric/Behavioral: Negative. Objective: Physical Exam Constitutional: She is oriented to person, place, and time. She appears well-developed and well-nourished. No distress. HENT: Head: Normocephalic and atraumatic. Right Ear: External ear normal. Left Ear: External ear normal. Nose: Nose normal. Mouth/Throat: Oropharynx is clear and moist. No oropharyngeal exudate. Eyes: Conjunctivae normal and EOM are normal. Pupils are equal, round, and reactive to ligh t. Right eye exhibits no discharge. Left eye exhibits no discharge. No scleral icterus. Neck: Normal range of motion. Neck supple. No JVD present. No tracheal deviation present. Cardiovascular: Normal rate, regular rhythm, normal heart sounds and intact distal pulses. Exam reveals no gallop and no friction rub. No murmur heard. Pulmonary/Chest: Effort normal and breath sounds normal. No stridor. No respiratory distres s. She has no wheezes. She has no rales. She exhibits no tenderness. Abdominal: Soft. Bowel sounds are normal. She exhibits no distension and no mass. There is no tenderness. There is no rebound and no guarding. Musculoskeletal: Normal range of motion. She exhibits no edema and no tenderness. Lymphadenopathy: She has no cervical adenopathy. Neurological: She is alert and oriented to person, place, and time. No cranial nerve defici t. She exhibits normal muscle tone. Coordination normal. Skin: Skin is warm and dry. No rash noted. She is not diaphoretic. No erythema. No pallor. Psychiatric: She has a normal mood and affect. Her behavior is normal. Judgment and thought content normal. Assessment: Epigastric pain possible passed H. pylori biopsies of been negative Lower abdominal cramping and urgency with incontinence probably secondary to IBS possible food type along with anxiety exacerbating the same Plan: The patient is to increase her Nexium to 20 mg twice a day. Prescription of Levsin subling ual was sent to [facility] incompetent to take on an as-needed basis when she begins to feel th e lower abdominal cramping hopefully will abort the severe cramping with associated loose wa aisha stools and incontinence and urgency he is to contact us in 2-3 weeks to see if the abov e therapeutic regimen has improved her overall symptom greater than 40 minutes was spent wit h the patient on this office visit Portions of this report were transcribed using voice recognition software. Every effort wa s made to ensure accuracy; however, inadvertent computerized medicare interviewer errors may be pre sent. documented in this enc rossyntjason Miscellaneous Notes Miscellaneous - ANIKA PABLO - 12/20/2013 12:00 AM PDT documented in this encounter Plan of Treatment [...] [place] | | | | | | [address] | | | | | | [phone] | | | | | | | | +--------+---------+ + + + documented as of this encounter Visit Diagnoses + + | Diagnosis | + + | Abdominal pain, epigastric - Primary | + + | Diarrhea | + + | Full incontinence of feces | + + documented in this encounter
--- OUTSIDE RECORDS SUMMARY | ~2019-09-21 | XMS | Encounter Summary ---
Demographics + + + | Address | [address] | | | [place] [address] | + + + | Home Phone | | + + + | Preferred Language | Unknown | + + + | Marital Status | | + + + | Druze Affiliation | 1028 | + + + | Race | Unknown | + + + | Ethnic Group | Unknown | + + + Author + + + | Author | [facility] | | | and [place] | + + + | Organization | [facility] | | | and [place] | + + + | Address | Unknown | + + + | Phone | Unavailable | + + + Support + + + + + | Name | Relationship | Address | Phone | + + + + + | Prashanth Vuong | ECON | [address] | | | | | [place] | | | | | [address] | | + + + + + Care Team Providers + +------+ + | Care Poultry Farmer Egg Name | Role | Phone | + [...] | | | | [address] [facility] | | | | | | [address] [place] | | | | | | [address] | | | | | | [phone] | | | +--------+ + + + [...] [place] | | | | | | [address] | | | | | | [phone] | | | | | | | | +--------+---------+ + + + documented as of this encounter Visit Diagnoses Not on filedocumented in this encounter"
--- OUTSIDE RECORDS SUMMARY | ~2019-09-21 | XMS | Encounter Summary ---
Demographics + + + | Address | [address] | | | [place] [address] | + + + | Home Phone | | + + + | Preferred Language | Unknown | + + + | Marital Status | Single | + + + | Evangelical Affiliation | Unknown | + + + | Race | Unknown | + + + | Ethnic Group | Other Race | + + + Author + + + | Author | [facility] | + + + | Organization | [facility] | + + + | Address | Unknown | + + + | Phone | Unavailable | + + + Support + + +---------+ + | Name | Relationship | Address | Phone | + + +---------+ + | None None | ECON | Unknown | Unavailable | + + +---------+ + Care Team Providers + +------+ + | Care Support Technician Name | Role | Phone | + +------+ + | Farooq Wesley DO | PCP | | + +------+ + Encounter Details +--------+ + + + + | Date | Type | Department | Care Team | Description | +--------+ + + + + | 01/06/ | Document-Sc | UNKNOWN DEPARTMENT | Other, Faculty | | | 2011 | anned | [address] | [phone] | | | | | [address] | | | | | | [place], [place] | | | | | | [address] | | | +--------+ + + + [...]
--- OUTSIDE RECORDS SUMMARY | ~2019-09-21 | XMS | Encounter Summary ---
Demographics + + + | Address | [address] | | | [place] [address] | + + + | Home Phone | | + + + | Preferred Language | Unknown | + + + | Marital Status | | + + + | Gnosticism Affiliation | 1028 | + + + | Race | Unknown | + + + | Ethnic Group | Unknown | + + + Author + + + | Author | [facility] | | | and [place] | + + + | Organization | [facility] | | | and [place] | + + + | Address | Unknown | + + + | Phone | Unavailable | + + + Support + + + + + | Name | Relationship | Address | Phone | + + + + + | Prashanth Vuong | ECON | [address] | | | | | [place] | | | | | [address] | | + + + + + Care Team Providers + +------+ + | Care Sleeve Setter Safety Stitch Name | Role | Phone | + +------+ + PCP | Unavailable | + +------+ + Encounter Details +--------+ + + + + | Date | Type | Department | Care Team | Description | +--------+ + + + + | 12/06/ | Hospital | [facility] | Silvano Kaiser MD | | | 2009 | Encounter | MED CTR GENERIC OP | [address], [place] | | | | | CONV DEPT [address] | [address] [place], [place] | | | | | [address] [place], | [address] | | | | | [place] [address] | | | | | | [phone] | | | +--------+ + + + [...] + + + +---------+ + + | cyclobenzaprine | Take 10 mg by mouth | | 0 | 11/06/19 | | | (FLEXERIL) 10 mg | as needed. | | | 10 | 2 | | tablet | | | | [...] | Visit | | [place] [address] | | | | | | [place] | | | | | | [address] | | | | | | [phone] | | | | | | | | +--------+---------+ + + + documented as of this encounter Visit Diagnoses Not on filedocumented in this encounter"
--- OUTSIDE RECORDS SUMMARY | ~2019-09-21 | XMS | Encounter Summary ---
Demographics + + + | Address | [address] | | | [place] [address] | + + + | Home Phone | | + + + | Preferred Language | Unknown | + + + | Marital Status | | + + + | Worship Affiliation | 1028 | + + + | Race | Unknown | + + + | Ethnic Group | Unknown | + + + Author + + + | Author | [facility] | | | and [place] | + + + | Organization | [facility] | | | and [place] | + + + | Address | Unknown | + + + | Phone | Unavailable | + + + Support + + + + + | Name | Relationship | Address | Phone | + + + + + | Prashanth Vuong | ECON | [address] | | | | | [place] | | | | | [address] | | + + + + + Care Team Providers + +------+ + | Care Mold Sander Name | Role | Phone | + +------+ + | Farooq Wesley DO | PCP | | + +------+ + Encounter Details +--------+ + + + + | Date | Type | Department | Care Team | Description | +--------+ + + + + | 12/07/ | Orders Only | [facility] | Farooq Wesley | | | 2017 | | [facility] | E, DO [address] | | | | | [facility] [address] | [place], [place] | | | | [address] [place], | [address] | | | | | [place] [address] | [phone] | | | | | [phone] | | | +--------+ + + + [...] [place] | | | | | | [address] | | | | | | [phone] | | | | | | | | +--------+---------+ + + + documented as of this encounter Visit Diagnoses Not on filedocumented in this encounter"
--- OUTSIDE RECORDS SUMMARY | ~2019-09-21 | XMS | Encounter Summary ---
Demographics + + + | Address | [address] | | | [place] [address] | + + + | Home Phone | | + + + | Preferred Language | Unknown | + + + | Marital Status | | + + + | Latter-Day Affiliation | 1028 | + + + [...] + | Prashanth Vuong | ECON | [address] | | | | | [place] | | | | | [address] | | + + + + + Care Team Providers + +------+ + | Care Weathercaster Name | Role | Phone | + [...] | | | | | [address] | [place], [place] | | | | | [place], [place] | [address] | | | | | [address] | | | | | | [phone] | | | +--------+ + + + [...] [address] | | eral | Antecubital; [id number] | Ruddy K | Hoang Cruz RN [...] + + documented as of this encounter [place] Notes Anesthesia Postprocedure Evaluation - Dash Mcclendon MD - 02/03/2017 11:38 AM PSTFormattin g of this note might be different from the original. ANESTHESIA POSTANESTHESIA EVALUATION Lita Vuong 76 y.o. female 1940 [id number] Procedure(s) EGD (N/A Mouth) Cooperates? Yes Mental Status Performs simple tasks. Respiratory Satisfactory - Airway patent (self maintained). Cardiovascular Satisfactory - Blood pressure and heart rate acceptable Temperature Satisfactory Pain Satisfactory N/V Control Satisfactory Hydration Satisfactory - No signs of dehydration Complications None apparent Vitals: 02/03/17 1017 02/03/17 1035 02/03/17 1045 BP: 142/59 154/67 171/72 Pulse: 93 52 Temp: 36.1 C (97 F) Resp: 16 14 SpO2: 94% 97% Electronically signed by Dash Mcclendon MD 02/03/2017 11:38 [facility]ron[facility] signed by Dash Mcclendon MD at 02/03 11:38 AM PSTAnesthesia Preprocedure Evaluation - Dash Mcclendon MD - 02/03/2017 9:04 AM PST ANESTHESIA PREANESTHESIA EVALUATION Lita Vuong 76 y.o. female 1940 [id number] Procedure(s): EGD (N/A Mouth) Review of Systems / Med History Cardiovascular (+) hypertension Pulmonary Prn inhalers. (+) asthma Neurology (+) fibromyalgia Endocrine Diet control and weight loss. (+) Diabetes: Physical Exam Airway MP I, TM >3 FB, Mouth opening >2 FB. Neck: full ROM, extends >30 degrees. Jaw protrusi on normal. Dental Grossly normal except where noted below.; CV Rhythm regular. Rate Normal. (-) murmur. Pulm Clear to auscultation bilaterally. Neuro Grossly normal. Anesthesia Plan ASA 2 Type: TIVA. Induction: Intravenous. Potential problems: None anticipated. Monitors: Standard ASA monitors. Consent statement:Anesthetic plan, alternatives, risks and benefits discussed with patient and spouse. Risks discussed included (but were not limited to): sore throat, respiratory events, heart problems, dental injury, . Consenting person understands and agrees to proceed. documented in this enc ounter Plan of Treatment +--------+---------+ + + + | Date | Type | Specialty | Care Team | Description | +--------+---------+ + + + | 10/04/ | Office | Primary Care | Farooq Wesley | | | 2020 | Visit | | E, DO [address] | | | | | | [place], [place] | | | | | | [address] | | | | | | [phone] | | | | | | | [...] | | | | | CONTINUOUS, Starting 02/03/17 | | AM PST | | | | | at 0930, Pre-op | | | | | | + +---------+ +------+------+------+ +---+---+ | | | +---+---+ + +-------+ +-------+---+---+ | lidocaine (PF) 1% injection | Given | 02/04/20 | 2 mLs | | | | Infiltration, PRN, Starting Tue | | 17 10:02 | | | [...]
--- OUTSIDE RECORDS SUMMARY | ~2019-09-21 | XMS | Encounter Summary ---
Demographics + + + | Address | [address] | | | [place] [address] | + + + | Home Phone | | + + + | Preferred Language | Unknown | + + + | Marital Status | | + + + | Buddhism Affiliation | 1028 | + + + | Race | Unknown | + + + | Ethnic Group | Unknown | + + + Author + + + | Author | [facility] | | | and [place] | + + + | Organization | [facility] | | | and [place] | + + + | Address | Unknown | + + + | Phone | Unavailable | + + + Support + + + + + | Name | Relationship | Address | Phone | + + + + + | Prashanth Vuong | ECON | [address] | | | | | [place] | | | | | [address] | | + + + + + Care Team Providers + +------+ + | Care University Registrar Name | Role | Phone | + +------+ + | Farooq Wesley DO | PCP | | + +------+ + Encounter Details +--------+ + + + + | Date | Type | Department | Care Team | Description | +--------+ + + + + | 04/23/ | Hospital | [facility] | Silvano Kaiser MD | 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 Ask your healthcare provider about gwdg-zxa-mgzhrpn andp rescription medicines that may help. Ask about surgery, if needed. Surgery is a treatment choice for some people. Your health care provider can determine if surgery is an option for you. Date Last Reviewed: 12/22/201519992072-5451 [employer]. [address] [place] [address], [place] [address]. All righ ts reserved. This information is [...] that are mashed or put through a operating room scheduler. In addition, you may need to avoid [...] treatment to prevent complications. Work with your [facility] provider to learn what you can do to protect your health. For more information, co ntact the [employer],www.diabetes.org. Long-term concerns With treatment, most people can manage their symptoms and maintain their usual routines. If your symptoms are moderate to severe, you may need to see your healthcare provider more oft en for checkups. Also, other treatments will likely be needed. Date Last Reviewed: 10/04/201519990465-[address] [place] [address], [place] [address]. All righ ts reserved. This information is [...] heart rate Chest pain Date Last Reviewed: 03/21/201519995524-7264 [employer]. [address] [place] [address], [place] [address]. All righ ts reserved. This information is [...] tablet under | 25 | 11 | 12/19/20 | | | (NITROSTAT) 0.4 mg | [...] lungs every 6 | | | | 0 | | mcg/puff inhaler | hours as [...] Daily. | tablet | | 18 | 0 | | tablet | | | | [...] + + documented as of this encounter H&P Notes Silvano Kaiser MD - 04/23/2018 12:22 PM PSTThe patient has no questions consent form was s igned we'll proceed with upper endoscopy possible dilatation colonoscopyElectronically messi d by Silvano Kaiser MD at 04/23/2018 12:22 PM PSTHarriSilvano MD - 04/14/2018 2:30 PM PS T Lita Vuong is an 77 y.o. female. The patient is seen for evaluation of dysphagia diarrhea. Outside records are reviewed nimo or evaluation reviewed Patient complains of dysphagia for primarily meat in the lower esophageal area. She had on e episode of esophageal obstruction and was on the way to the emergency room before the [facility] of [facility] sunshine released. She now is eating a very small pieces and slowly and drinking wate r to prevent this distal esophageal obstruction. Patient has a known history of Schatzki's ring dilated twice in the past. Last dilatation was in March 2016 with TTS done to 16 mm size. Patient complains of increased symptoms of reflux for the past 2-3 months. She previ ously was on Nexium has been on Tagamet for 2 years. She went on 14 day course of Nexium an d her symptoms are reflux resolved. By reflux symptoms she means retrosternal burning. Upp er endoscopy with biopsy previously has been negative for Snyder's metaplasia. Patient's d enies melena or hematemesis. Reason for going off of the Nexium was perceived PPI adverse s elise effects. The patient has been told in the past that she has esophageal spasm. He belie ves that she had a barium swallow done at [facility] in [place] multiple years ago. She does not feel as if she couldn't tolerate esophageal manometry catheter. Patient complains of diarrhea. By diarrhea she means runny stools. She'll have occasional episodes of urgency and incontinence. It's been going on for approximately 2 years. Resta urant foods seem to increase her symptoms particularly Danish or spicy foods. She will hav e repetitive looser stools large volume and then may go without a stool for 2-3 days. She i s increased her fiber and that is increased the consistency of the stool. She denies blood or mucus in the stools denies lower abdominal pain. Colonoscopy in 2009 was negative for ab normalities was done at that time for past history of colonic polyps. Discussion was held with the patient and patient's about the reported adverse effec ts of PPI therapy. 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 Cervical spondylolysis Degeneration, intervertebral disc, cervical Degeneration, intervertebral disc, cervical Diffuse esophageal spasm DM (diabetes mellitus) (HCC) Dyskinesia of esophagus Dyslipidemia Dysphagia Esophageal reflux disease Essential hypertension, benign GERD (gastroesophageal reflux disease) H/O thrombosis History of cervical cancer History of cervical cancer Hyperlipidemia Hypothyroidism s/p thyroidectomy Osteoarthritis of acromioclavicular joint Right Osteoarthritis of knee Osteoporosis postmenopausal Partial thickness miranda (2nd Deg) Forearm Left Retinal ischemia Rotator cuff tendonitis Sleep apnea Stroke syndrome Allergies: Allergies Allergen Reactions Cephalexin Hives Hives in throat Iodine Hives IV contrast - "I was in the hospital and didn't wake up for three days" Meloxicam Swelling and Rash Swelling of throat Penicillins Hives and Swelling Throat swelling Rivaroxaban Nausea And Vomiting and Swelling AKA "Xeralto" Sulfa Antibiotics Hives and Swelling Cefazolin Hives and Rash [place] Hives and Rash Active Problems: * No active hospital problems. * Blood pressure 164/66, pulse 55, temperature 36.6 C (97.9 F), temperature source Tempor al, resp. rate 16, weight 76.1 kg (167 lb 12.3 oz), SpO2 99 %, not currently . Review of Systems HENT: Positive for congestion, hearing loss and tinnitus. Gastrointestinal: Positive for abdominal pain, diarrhea and heartburn. Dysphagia Psychiatric/Behavioral: Positive for memory loss. All other systems reviewed and are negative. Physical Exam Constitutional: She is oriented to person, place, and time. She appears well-developed and well-nourished. No distress. HENT: Head: Normocephalic and atraumatic. Right Ear: External ear normal. Left Ear: External ear normal. Nose: Nose normal. Mouth/Throat: Oropharynx is clear and moist. No oropharyngeal exudate. This membranes moist dentition good repair swallowing mechanism intact Eyes: Pupils are equal, round, and reactive to light. Conjunctivae and EOM are normal. Righ t eye exhibits no discharge. Left eye exhibits [...] Normal range of motion. She exhibits no edema, tenderness or deformity. Lymphadenopathy: She has no cervical adenopathy. Neurological: She is alert and oriented to person, place, and time. No cranial nerve defici t. She exhibits normal muscle tone. Coordination normal. Skin: Skin is warm and dry. No rash noted. She is not diaphoretic. No erythema. No pallor. Psychiatric: She has a normal mood and affect. Her behavior is normal. Judgment and thought content normal. Nursing note and vitals reviewed. Assessment: Dysphagia probably secondary to recurrent Schatzki's ring possible esophageal motor abnorma lity Diarrhea possible IBS rule out microscopic or collagenous colitis Obstructive sleep apnea with CPAP use Exogenous obesity Plan: Upper endoscopy probable esophageal dilatation possible middle esophageal biopsies duodenal biopsies due to history of diarrhea Colonoscopy with stool studies and right and left colonic biopsies for microscopic or colla genous colitis benefits and risks of the procedures are explained to the patient she concurs and she'll be scheduled as an outpatient with propofol sedation. Silvano Kaiser 04/14/2018 documented in this encounter Miscellaneous Notes Op Note - Silvano Kaiser MD - 04/23/2018 1:06 PM PSTUpper endoscopy was remarkable for no nobstructing Schatzki's ring which was dilated to 60 Maldivian via TTS technique. There was a small hiatal hernia without Rudolph ulcerations. Gastroparesis was evident. Duodenal mucos a appeared normal but due to history of diarrhea duodenal biopsies were obtained. Colonosco py was remarkable for marked redundancy of the descending and transverse colon. There was s ome scattered fecal debris throughout the colon which could not be totally washed and aspira natalie free. Right and left colonic biopsies were obtained. There were scattered diverticuli in the right and left colon. Stool studies were obtained. Patient was discharged on her cu rrent medications and follow-up pending path results. -C Instructions Provation - Silvano Kaiser MD - 04/23/2018 1 2:13 PM PSTDischarge Instructions for Upper Endoscopy Patient: Lita Vuong : 1940 Acct: [id number] Exam Date: Monday, April 23, 2018 Doctor: Silvano Kaiser MD The chances of difficulty following this procedure are minimal. The following instructions will assist you in your recovery. 1. Do Not eat or drink anything for 1 hour. Try sips of water first. If tolerated, resume your regular diet or one recommended by your physician. 2. Do not drive, operate machinery, make critical decisions, or do activities that require coordination or balance for 24 hours. 3. You may experience a sore throat for 24 - 48 hours. You may use throat lozenges or gargle with warm salt water to relieve the discomfort. 4. Because air was put into your stomach druing the procedure, you may experience some belching. 5. Do not use any medication containing aspirin for 10 days, unless otherwise directed by your physician. 6. Sometimes the medications given to you druing the exam can aggravate the veins. The chemical irritation can cause inflammation or pain along the arm with redness, swelling and warmth. This does not mean there is an infection. You can treat the affected area by applying warm, wet compresses (towels) 4 times a day for 20 minutes at a time until inflammation is resolved 7. Report to your doctor: Chills and/or fever over 100 Persistent vomiting or vomiting with blood/nasal regurgitation Severe abdominal pain, other than gas cramps Severe chest pain Black, tarry stools You may reach your physician at Work: . If unable to reach your physician, call [facility] Emergency Department at Ext. [phone] Your doctor recommends these additional instructions: You have a contact number available for emergencies. The signs and symptoms of potential delayed complications were discussed with you. You may return to normal activities tomorrow. Written discharge instructions were provided to you. You are being discharged to home. Resume your previous diet today. Your physician has recommended a colonoscopy today. Follow an antireflux regimen indefinitely. This includes: - Do not lie down for at least 3 to 4 hours after meals. - Raise the head of the bed 4 to 6 inches. - Decrease excess weight. - Avoid citrus juices and other acidic foods, alcohol, chocolate, mints, coffee and other caffeinated beverages, carbonated beverages, fatty and fried foods. - Avoid tight-fitting clothing. - Avoid cigarettes and other tobacco products. Continue your present medications. We are waiting for your pathology results. Your physician has recommended a repeat upper endoscopy as needed for retreatment. Return to your primary care physician as previously scheduled. Telephone your GI clinic for pathology results in one week. These instructions have been explained to the patient and/or escort. A copy has been given to the patient/escort. Nurse Signature Patient Signature Escort Signature Date Silvano Kaiser MD 04/23/2018 1:12:50 PM This report has been signed electronically.Electronically signed by Silvano Kaiser MD at 1:13 PM PSTD-C Instructions Provation - Silvano Kaiser MD - 04/23/2018 12:12 PM P STDischarge Instructions for Colonoscopy Exams Patient: Lita Vuong : 1940 Acct: [id number] Exam Date: Monday, April 23, 2018 Doctor: Silvano Kaiser MD You have had an examination of the gastrointestinal tract. The chances of difficulty following this procedure are minimal. The following instructions will assist you in your recovery. ACTIVITIES: Rest quietly until sedation wears off. DO NOT drive a motor vehicle or operate machinery for 24 hours after sedation. Be cautious making critical decisions for 24 hours after sedation. DIET: If throat has been sprayed, do not eat or drink for 1 hour after. Start with a swallow of tap water, if you experience any lack of sensation in your throat, wait another 30 - 60 minutes and start with water again. Once swallowing has returned to normal you may resume your usual diet unless otherwise instructed by your physician. DISCOMFORT: If you had a bowel exam, you may have some abdominal discomfort from the air put into your bowel during the exam. Moving about will help you pass this air. Sometimes the medications given to you during the exam can aggravate the veins. The chemical irritation can cause inflammation or pain along the arm with redness, swelling and warmth. This does not mean there is an infection. You can treat the affected area by applying warm,wet compresses (towels) 4 times a day for 20 minutes at a time until inflammation is resolved. REPORT TO YOUR DOCTOR: Unusual abdominal pain Chest pain or unusual shortness of breath Shoulder pain Nausea, vomiting Fever over 100 degrees, chills Signs of rectal bleeding (red or black stools) Any concern you have resulting from procedure You may reach your physician at Work: . If unable to reach your physician, call [facility] Emergency Department at Ext. [phone] Your doctor recommends these additional instructions: You have a contact number available for emergencies. The signs and symptoms of potential delayed complications were discussed with you. You may return to normal activities tomorrow. Written discharge instructions were provided to you. You are being discharged to home. Resume your previous diet today. Continue your present medications. Return to your primary care physician as previously scheduled. Telephone your GI clinic for pathology results in one week. Telephone your GI clinic if symptoms are present. These instructions have been explained to the patient and/or escort. A copy has been given to the patient/escort. Nurse Signature Patient Signature Escort Signature Date Silvano Kaiser MD 04/23/2018 1:16:59 PM This report has been signed electronically.Electronically signed by Silvano Kaiser MD at 1:17 PM PSTdocumented in this encounter Plan of Treatment +--------+---------+ + + + | Date | Type | Specialty | Care Team | Description | +--------+---------+ + + + | 10/04/ | Office | Primary Care | Farooq Wesley | | | 2019 | Visit | | E, DO [address] | | | | | | [place] | | | | | | [address] | | | | | | [phone] | | | | | | | [...] [address], | REFERENCE LAB | | [place], [place] [id number] Freight Rate Clerk: Jose Jones MD, Phone: | [facility] | | [phone] | | + + + + + + + + | Performing | Address | City/State/Zipcode | Phone Number | | Organization | | | | + + + + + | REFERENCE LAB | [address] | [place], [place] | [phone] | | [facility] | [address] | [address] | | + + + + + Campylobacter JeronimoQual (04/23/2018 12:39 PM PST) + + + + + + | Component | Value | Ref Range | Performed | Pathologist | | | | | At | Signature | + + + + + + | Campylobact | Negative | Negative | [facility] | | | er AG, Qual | | | [facility] | | [...] ST. | [address] | [place], [place] | [phone] | | [facility] | | [address] | | | - LABORATORY | | [...] + | [facility] | [address] | [place] | [phone] | | [facility] | | [address] | | | - LABORATORY | | [...] | | | 1 | | | [facility] | | [...] + | [facility] | [address] | [place] | [phone] | | [facility] | | [address] | | | - LABORATORY | | [...] + + | Performed at: 01 - [facility] [address], | REFERENCE LAB | | [place], [place] [id number] Freight Rate Clerk: Jose Jones MD, Phone: | [facility] | | [phone] | | + + + + + + + + | Performing | Address | City/State/Zipcode | Phone Number | | Organization | | | | + + + + + | REFERENCE LAB | [address] | [place], [place] | [phone] | | [facility] | Drive [facility] | [address] | | + + + + + Lactoferrin, Fecal, Qual (04/23/2018 12:39 PM PST) + + + + + + | Component | Value | Ref Range | Performed | Pathologist | | | | | At | Signature | + + + + + + | Lactoferrin | Negative | Negative | [facility] | | | , Qual | | | [facility] | | | | | | [...] [address] | [place] | [phone] | | [facility] | | [address] | | | - LABORATORY | | [...] | | | Antigen, | | | [facility] | | | Stool | | [...] | + + + + + | [facility] | [address] | [place] | [phone] | | [facility] | | [address] | | | - LABORATORY | | [...] | | | dium | | | [facility] | | | Antigen | | | [...] + | [facility] | [address] | [place] | [phone] | | [facility] | | [address] | | | - LABORATORY | | [...] Difficile | Negative for toxigenic | | [facility] | | | [facility] Antigen | Clostridium difficile | | MEDICAL | | | | | | CENTER - | | | | | | LABORATORY | | + + + + + + | C. Diff | NegativeComment: No data | Negative | [facility] | | | Toxin A/B | exists on the effects | | [facility] | | | EIA | of colonic [...] + | [facility] | [address] | [place] | [phone] | | [facility] | | [address] | | | - LABORATORY | | [...] r pylori Ag | | | [facility] | | [...] ST. | [address] | [place], [place] | [phone] | | [facility] | | [address] | | | - LABORATORY | | | | + + + + + KWABENA (04/23/2018 12:13 PM PST) + + | Specimen | + + | | + + + + -+ | Narrative | Performed At | + + -+ | | [facility] | | GastroenterologyPatient Name: Lita VuongProcedure Date: 04/23/2018 | [facility] | | 12:13 PMMRN: [id number] #: [id number] of : | | | 1Admit Type: AmbulatoryAge: 77Room: [facility] 01Gender: FemaleNote | | | Status: FinalizedAttending MD: Silvano Kaiser , [facility]cedure: | | | Upper GI endoscopyIndications: Esophageal | | | dysphagiaProviders: Silvano Kaiser MD, Jeanette Womack, | | | RN, Willow Vergara, Paste Mixer Liquid, Virgilio Grissom | | | MD Satish [...] the anesthesiologist and | | | the finishing lab technician in the endoscopy suite. Mental Status [...] PMScope Out: | | | 12:31:45 PM [facility], [facility] [address] | | | [place] [address] | | | - Discharge patient to [...] |Scope Out: 12:31:45 PM | | | [facility], [facility] [address] [place], [place] | | | [address] | | + + -+ + +---------+ [...] 04/23/2018 | [facility] | | 12:12 PMMRN: [id number] #: [id number] of : | | | 1Admit Type: AmbulatoryAge: 77Room: [facility] 01Gender: FemaleNote | | | Status: FinalizedAttending MD: Silvano Kaiser MDProcedure: | | | ColonoscopyIndications: Chronic diarrheaProviders: | | | Silvano Kaiser MD, Jeanette Womack RN, Willow Vergara, | | | Paste Mixer Liquid, Virgilio Covarrubias MD (Anesthesia | | | [...] | | | PMScope Out: 1:03:32 PM [facility], [address] | | [place] [address] | | | instructions were provided to [...] |Scope Out: 1:03:32 PM | | | [facility], [address] , [place] | | | [address] | | + + -+ + +---------+ [...] and labeled as | | | "Yevgeniy, Liat" and designated as "left colon biopsy" per the | | | requisition, consists of six pink-hyde tissue fragments ranging in size | | | from 0.2 to 0.3 cm in diameter. The entire specimen is submitted | | | in a single cassette, (C1). js:BETH:guicho PERFORMING LABORATORY: | | | The technical component was performed by [facility], [address] | | | [facility] [address] (Cleaning Matron: Sharda Baxter MD; | | | CLIA# [id number]). Professional interpretation was performed by | | | [facility], [facility], [address] [place] [address] (Cleaning Matron: Grace Hill MD; | | | ZAHRAA# [id number]). Diagnostician: Chip Chang MD | | | [...] + | Diagnosis | + + | Snyder's esophagus determined by biopsy - Primary | + + | Esophageal dysphagia Dysphagia, pharyngoesophageal phase | + + | Change in bowel habits Other symptoms involving digestive system | + + documented in this encounter Administered Medications + +--------+---------+------+------+------+ [...] PRN, Nausea, Vomiting, Starting | | | 04/23/18 at 1310, | | | Recovery/Phase I [...]
--- OUTSIDE RECORDS SUMMARY | ~2019-09-21 | XMS | Clinical Summary ---
Demographics + + + | Address | [address] | | | [place] [address] | + + + | Home Phone | | + + + | Preferred Language | Unknown | + + + | Marital Status | Single | + + + | Yazidi Affiliation | Unknown | + + + [...] Team Providers + +------+ + | Care Licensed Physical Therapist Assistant Name | Role | Phone | + +------+ + | Farooq Wesley DO | PCP | | + +------+ + Source Comments [facility] is fully live on both [facility] Ambulatory and [facility] InPatient.[facility] Allergies + + + + + + [...] | | | | | | | [address] | | + +--------+ +--------+ + +--------+ | [employer] MEDICARE | MODA | xxxxxxxxx | 03/12/ | [phone] | [address] | [address] | | SUPPLEMENT | MEDICA | | 2015-P | 4 | [id number] | | | | RE | | resent | | [place], | | | | [place]PPLE | | | | [place] [address] | | | | MENT | | | | | | + +--------+ +--------+ + +--------+ + +--------+ +--------+ + + | Guarantor Name | Accoun | Relation to | Date | Phone | Billing Address | | | t Type | Patient | of | | | | | | | | | | + +--------+ +--------+ + + | Lita Vuong | Person | Self [birth year] | [address] | | | al/Fam | | 1941 | [phone] | [address] [place] | | | [place] | | | [address] (Home) | [address] | + +--------+ +--------+ + +
--- OUTSIDE RECORDS SUMMARY | ~2019-09-21 | XMS | Encounter Summary ---
Demographics + + + | Address | [address] | | | [place] [address] | + + + | Home Phone | | + + + | Preferred Language | Unknown | + + + | Marital Status | | + + + | Alevism Affiliation | 1028 | + + + | Race | Unknown | + + + | Ethnic Group | Unknown | + + + Author + + + | Author | [facility] | | | and [place] | + + + | Organization | [facility] | | | and [place] | + + + | Address | Unknown | + + + | Phone | Unavailable | + + + Support + + + + + | Name | Relationship | Address | Phone | + + + + + | Prashanth Vuong | ECON | [address] | | | | | [place] | | | | | [address] | | + + + + + Care Team Providers + +------+ + | Care Geotechnical Intern Name | Role | Phone | + +------+ + | Farooq Wesley DO | PCP | | + +------+ + Reason for Visit + +--------+ + | Reason | Onset | Comments | | | Date | | + +--------+ + | Medication Refill | 12/11/ | | | | 2017 | | + +--------+ + Encounter Details +--------+--------+ + + + | Date | Type | Department | Care Team | Description | +--------+--------+ + + + | 12/11/ | Refill | [facility] | Maria G Burgess, CC | Medication Refill | | 2017 | | [facility] | [address] | | | | | [facility] [address] | | | | | | [address] [facility], | | | | | | [place] [address] | | | | | | [phone] | | | +--------+--------+ + + + [...] this encounter Miscellaneous Notes Telephone Encounter - Maria G Burgess CC CMA - 12/11/2017 2:03 PM PDTLAST OFFICE VISIT . RICHARD Hunter [facility] notes states: Plan -Reduce Losartan-HCTZ to half tablet a day for couple months, track blood pressure, and pop l clinic with readings. +++No notation of dose change in medication list please advise armandofo re refill. Electronically signed by RICHARD Rojas [facility] at 12/11/2017 2:06 PM PDTdocument ed in this encounter Plan of Treatment +--------+---------+ + + + | Date | Type | Specialty | Care Team | Description | +--------+---------+ + + + | 10/04/ | Office | Primary Care | Farooq Wesley | | | 2019 | Visit | | [place] [address] | | | | | | [place] | | | | | | [address] | | | | | | [phone] | | | | | | | | +--------+---------+ + + + documented as of this encounter Visit Diagnoses Not on filedocumented in this encounter"
--- OUTSIDE RECORDS SUMMARY | ~2019-09-21 | XMS | Encounter Summary ---
Demographics + + + | Address | [address] | | | [place] [address] | + + + | Home Phone | | + + + | Preferred Language | Unknown | + + + | Marital Status | | + + + | Voodoo Affiliation | 1028 | + + + | Race | Unknown | + + + | Ethnic Group | Unknown | + + + Author + + + | Author | [facility] | | | and [place] | + + + | Organization | [facility] | | | and [place] | + + + | Address | Unknown | + + + | Phone | Unavailable | + + + Support + + + + + | Name | Relationship | Address | Phone | + + + + + | Prashanth Vuong | ECON | [address] | | | | | [place] | | | | | [address] | | + + + + + Care Team Providers + +------+ + | Care Education Coordinator Name | Role | Phone | + [...] Description | +--------+--------+ + + + | 09/03/ | Refill | [facility] | Farooq Wesley | Medication Refill | | 2019 | | [facility] | E, DO [address] | | | | | MED[facility] [address] | [place], [place] | | | | | [address] [place], | [address] | | | | | [place] [address] | [phone] | | | | | [phone] | | | +--------+--------+ + + + [...] + + +---------+ + | Yes | 0 Cans of beer 0 | 1.0 | | | | Shots of liquor 1 | | | | | Glasses of wine | | | + + +---------+ + + + + + | Alcohol [...] | | + + + + + +--------+ + | Intimate Partner Violence | Answer | Date Recorded | + +--------+ + | Within the last year, have you been afraid | No | 06/14/2019 | | of your partner or ex-partner? | | | + +--------+ + | Within the last year, have you been | No | 06/14/2019 | | humiliated or emotionally abused in other | | | | ways by your partner or ex-partner? | | | + +--------+ + | Within the last year, have you been kicked, | No | 06/14/2019 | | hit, slapped, or otherwise physically hurt | | | | by your partner or ex-partner? | | | + +--------+ + | Within the last year, have you been raped | No | 06/14/2019 | | or forced to have any kind of sexual | | | | activity by your partner or ex-partner? | | | + +--------+ + + + + | Sex Assigned at | Date Recorded | | | | + + + | Not on file | | + + + documented as of this encounter Miscellaneous Notes Telephone Encounter - Adina Kerns CC CMA - 09/05/2019 9:04 AM PDT Labs UTD Patient was last seen on Recent Visits 06/14/2019 Trochanteric bursitis of left hip [facility] Farooq Wesley, DO Office Visit 02/24/2019 Controlled type 2 diabetes mellitus without complication, without long-term cur rent use of insulin ([facility]) [facility] Farooq Wesley, DO Office Visit 12/23/2018 Dog bite of hand, right, initial encounter [facility] Ilene Hopper, MANAGEMENT AND BUDGET ANALYST Office Visit RICHARD Bolivar CMA documented in th is encounter Plan of Treatment +--------+---------+ + + + | Date | Type | Specialty | Care Team | Description | +--------+---------+ + + + | 10/04/ | Office | Primary Care | Farooq Wesley | | 2019 | Visit | | E, [address] | | | | | | [place] | | | | | | [address] | | | | | | [phone] | | | | | | | | +--------+---------+ + + + documented as of this encounter Visit Diagnoses + + | Diagnosis | + + | Essential hypertension, benign | + + documented in this encounter"
--- OUTSIDE RECORDS SUMMARY | ~2019-09-21 | XMS | Encounter Summary ---
Demographics + + + | Address | [address] | | | [place] [address] | + + + | Home Phone [...] + + | Author | [facility] | | | and [place] | + + + | Organization | [facility] | | | and [place] | + + + | Address | Unknown | + + + | Phone | Unavailable | + + + Support + + + + + | Name | Relationship | Address | Phone | + + + + + | Prashanth Vuong | ECON | [address] | | | | | [place] | | | | | [address] | | + + + + + Care Team Providers + +------+ + | Care Electrician Radio Name | Role | Phone | + +------+ + | Farooq Wesley DO | PCP | | + +------+ + Reason for Visit + + + | Reason | Comments | + + + | DM Follow-up | | + + + | Suture / Staple | | | Removal | | + + + Encounter Details +--------+---------+ + + + | Date | Type | Department | Care Team | Description | +--------+---------+ + + + | 02/24/ | Office | [facility] | Farooq Wesley | Controlled type 2 | | 2019 | Visit | [facility] | E, DO [address] | diabetes mellitus | | | | MEDICAL [facility] [address] | [place], [place] | without | | | | [address] [place], | [address] | complication, | | | | [place] [address] | [phone] | without long-term | | | | [phone] | | current use of | | | | | | insulin (HCC) | | | | | | (Primary Dx); | | | | | | Adjustment disorder | | | | | | with depressed mood; | | | | | | Visit for suture | | | | | | removal | +--------+---------+ + + + Social History [...] + + + | Blood Pressure | 158/76 | 02/24/2019 3:45 PM | | | | | PST | | + + + + + | Pulse | 57 | 02/24/2019 3:45 PM | | | | | PST | | + + + + + | Temperature | 37 C (98.6 F) | 02/24/2019 3:45 PM | | | | | PST | | + + + + + | Respiratory Rate | 18 | 02/24/2019 3:45 PM | | | | | PST | | + + + + + | Oxygen Saturation | 99% | 02/24/2019 3:45 PM | | | | | PST | | + + + + + | Inhaled Oxygen | - | - | | | Concentration | | | | + + + + + | Weight | 71.9 kg (158 lb 9.6 | 02/24/2019 3:45 PM | | | | oz) | PST | | + + + + + | Height | 154.9 cm (5' 1") | 02/24/2019 3:45 PM | | | | | PST | | + + + + + | Body Mass Index | 29.97 | 02/24/2019 3:45 PM | | | | | PST | | + + + + + documented in this encounter Progress Notes Farooq Wesley DO - 02/24/2019 3:40 PM PST Patient ID: Lita Vuong is a 78 y.o. year old female Chief Complaint: Chief Complaint Patient presents with DM Follow-up Suture / Staple Removal Assessment 1. Controlled type 2 diabetes mellitus without complication, without long-term current use of insulin ([facility]) 2. Adjustment disorder with depressed mood - ALPRAZolam (XANAX) 0.25 mg tablet; Take 1 tablet by mouth nightly as needed for Anxiety ( Take 1 hour before bed). Dispense: 30 tablet; Refill: 0 3. Visit for suture removal Plan: -BP today was 158/76. -Discussed the FLORENCE of alprazolam in older populations. Warned patient to avoid driving or performing high mental capacity tasks while taking the medication. -Initiated alprazolam 0.25 mg 1 PO QD PRN to take 1 hour before bed. -4 sutures removed today without difficulty. Patient tolerated well with no immediate compl ications. -FU PRN. Subjective: HPI: Patient presents to the clinic for a DM FU. The patient has diabetes mellitus, which she manages with lifestyle changes. Her last A1c w as on 02/07/19 with a value of 6.1%. She had labs drawn on 02/07/19 with unremarkable results. 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 She would like to have t he sutures removed today. She is experiencing a lot of personal stress due to her son's medical condition. She report s sleep disturbance due to worrying. She is tearful today. Current Outpatient Medications Medication Sig Dispense Refill ACCU-CHEK [place] PLUS strip Check blood sugars 1-2 times a day 100 each 6 albuterol (VENTOLIN HFA) 90 mcg/puff inhaler Inhale 2 puffs into the lungs every 6 hour s as needed for Wheezing. ALPRAZolam (XANAX) 0.25 mg tablet Take 1 tablet by mouth nightly as needed for Anxiety (Take 1 hour before bed). 30 tablet 0 aspirin 81 MG tablet Take 81 mg [...] by mouth Erick y. 90 tablet 3 meloxicam (MOBIC) 15 mg tablet Take 15 mg by mouth Daily. Multiple Vitamins-Minerals (MULTIVITAMIN PO) Take 1 tablet [...] Procedure: COLONOSCOPY; Surgeon: Silvano Kaiser MD; Location: [facility] ESOPHAGEAL DILATATION 2012 Dr. Kaiser HYSTERECTOMY THYROID SURGERY hemithyroidectomy - right TOTAL KNEE ARTHROPLASTY May, right, partial UPPER GASTROINTESTINAL ENDOSCOPY 10/25/12 next due 10/2013 UPPER GASTROINTESTINAL ENDOSCOPY N/A 03/05/2016 Procedure: EGD; Surgeon: Silvano Kaiser MD; Location: [facility] UPPER GASTROINTESTINAL ENDOSCOPY N/A 02/03/2017 Procedure: EGD; Surgeon: Silvano Kaiser MD; Location: [facility] UPPER GASTROINTESTINAL ENDOSCOPY N/A 04/23/2018 Procedure: EGD; Surgeon: Silvano Kaiser MD; Location: [facility] Social History Socioeconomic History Marital status: Spouse name: Not on file Number of children: Not on file Years of education: Not on file Highest education level: Not on file Occupational History Not on file Social Needs Financial resource strain: Not on file Food insecurity: Worry: Not on file Inability: Not on file Transportation needs: Medical: Not on file Non-medical: Not on file Tobacco Use Smoking status: Never Smoker Smokeless tobacco: Never Used Substance and Sexual Activity Alcohol use: Yes Alcohol/week: 1.0 - 2.0 standard drinks Types: 1 - 2 Glasses of wine per week Frequency: 2-4 times a month Drinks per session: 1 or 2 Binge frequency: Never Drug use: No Comment: CBD Oil Sexual activity: Yes Partners: Male control/protection: Post-menopausal, Surgical Lifestyle Physical activity: Days per week: Not on file Minutes per session: Not on file Stress: Not on file Relationships Social connections: Talks on phone: Not on file Gets together: Not on file Attends adventism service: Not on file Active member of club or organization: Not on file Attends meetings of clubs or organizations: Not on file Relationship status: Not on file Intimate partner violence: Fear of current or ex partner: Not on file Emotionally abused: Not on file Physically abused: Not on file Forced sexual activity: Not on file Other Topics Concern Not [...] Hives and Swelling Cefazolin Hives and Rash Vest Hives and Rash Review of Systems Skin: Positive for wound (well healed incision). Psychiatric/Behavioral: Positive for dysphoric mood (tearful) and sleep disturbance. The dulce enriquez is nervous/anxious. Objective: Vitals: BP 158/76 | Pulse 57 | Temp 37 C (98.6 F) (Oral) | Resp 18 | Ht 1.549 m (5' 1") | Wt 71.9 kg (158 lb 9.6 oz) | LMP (LMP Unknown) | SpO2 99% | BMI 29.97 kg/m Physical Exam Constitutional: She is oriented to person, place, and time. She appears well-developed and well-nourished. HENT: Head: Normocephalic and atraumatic. Right Ear: External ear normal. Left Ear: External ear normal. Nose: Nose normal. Mouth/Throat: Oropharynx is clear and moist. No oropharyngeal exudate. Eyes: Pupils are equal, round, and reactive to light. Conjunctivae and EOM are normal. Neck: Normal range of motion. Neck supple. No thyromegaly present. Cardiovascular: Normal rate, regular rhythm, normal heart sounds and intact distal pulses. Pulmonary/Chest: Effort normal and breath sounds normal. Abdominal: Soft. Bowel sounds are normal. Neurological: She is alert and oriented to person, place, and time. She has normal reflexes . Skin: Skin is warm and dry. Right nasal labial fold: 4 interrupted sutures, well healed incision, mild erythema, no dis charge. Psychiatric: Her behavior is normal. Judgment and thought content normal. She exhibits a de pressed mood. This documentation prepared by Laverne Gil ophthalmic medical assistant. All aspects of this chart review ed for accuracy and content by Farooq Wesley DO at the date and time of service. Electronically signed by: Dr. Farooq Wesley DO 02/24/2019 4:08 PM documented in this encounter Plan of Treatment +--------+---------+ + + + | Date | Type | Specialty | Care Team | Description | +--------+---------+ + + + | 10/04/ | Office | Primary Care | Farooq Wesley | | | 2020 | Visit | | DO [place] [address] | | | | | | [place] | | | | | | [address] | | | | | | [phone] | | | | | | | | +--------+---------+ + + + documented as of this encounter Visit Diagnoses + + | Diagnosis | + + | Controlled type 2 diabetes mellitus without complication, without long-term current | | use of insulin (HCC) - Primary | + + | Adjustment disorder with depressed mood | + + | Visit for suture removal Encounter for removal of sutures | + + documented in this encounter
--- OUTSIDE RECORDS SUMMARY | ~2019-09-21 | XMS | Encounter Summary ---
Demographics + + + | Address | [address] | | | [place] [address] | + + + | Home Phone | | + + + | Preferred Language | Unknown | + + + | Marital Status | | + + + | [employer] Affiliation | 1028 | + + + [...] + | Prashanth Vuong | ECON | [address] | | | | | [place] | | | | | [address] | | + + + + + Care Team Providers + +------+ + | Care Application Integration Architect Name | Role | Phone | + +------+ + | Farooq Wesley DO | PCP | | + +------+ + Encounter Details +--------+---------+ + + + | Date | Type | Department | Care Team | Description | +--------+---------+ + + + | 03/05/ | Surgery | [facility] | Silvano Kaiser MD | EGD | | 2016 | | MED [facility] | [address], [place] | | | | | [address] | [address] [place], [place] | | | | | [place], [place] | [address] | | | | | [address] | | | | | | [phone] | | | +--------+---------+ + + + [...] + + + | Blood Pressure | 203/73 | 03/05/2016 11:06 AM | | | | | PST | | + + + + + | Pulse | 74 | 03/05/2016 11:06 AM | | | | | PST | | + + + + + | Temperature | 36.6 C (97.9 F) | 03/05/2016 10:08 AM | | | | | PST | | + + + + + | Respiratory Rate | 16 | 03/05/2016 11:06 AM | | | | | PST | | + + + + + | Oxygen Saturation | 100% | 03/05/2016 11:06 AM | | | | | PST | | + + + + + | Inhaled Oxygen | - | - | | | Concentration | | | | + + + + + | Weight | 73.7 kg (162 lb 6.4 | 03/05/2016 10:08 AM | | | | oz) | PST | | + + + + + | Height | 154.9 cm (5' 1") | 03/05/2016 10:08 AM | | | | | PST | | + + + + + | Body Mass Index | 30.69 | 03/05/2016 10:08 AM | | | | | PST | | + + + + + documented in this encounter Medications at Time [...] + + + +---------+ + + | Calcium | Take 1 tablet by | | 0 | | | | Carbonate-Vit D-Min | mouth Daily. | | | | 7 | | (CALCIUM 1200) | | | | | | | 8213-3301 MG-UNIT | | | | | | | CHEW | | | | | | + + + +---------+ + + | cyclobenzaprine | Take 5 mg by mouth | | 0 | | | | (FLEXERIL) 5 MG | nightly as needed. | | | | 8 | | tablet | | | | | | + + + +---------+ + + | Esomeprazole | Take by mouth. | | 0 | | | | Magnesium (NEXIUM | Patient claims 22 mg | | | | 7 | | PO) | tablet | | | | | + + [...] 2 times daily. | | | | 7 | | 25 mg tablet | | [...] + + + +---------+ + + | pirbuterol (MAXAIR | Inhale 2 puffs into | | 0 | | | | AUTOHALER) 200 | the lungs 4 times | | | | 8 | | mcg/puff inhaler | daily as needed. | | | | | + + + +---------+ + + documented as of this encounter H&P Notes Silvano Kaiser MD - 03/05/2016 11:01 AM PSTThe patient has no questions consent form was s igned 64 O2 sat 100% blood pressure 206/82 we'll proceed with upper endoscopy probable dilat ation of Schatzki's ring Silvano Spence MD - 03/04/2016 8:32 AM PST PRE-ENDOSCOPY HISTORY AND PRE-SEDATION ASSESSMENT PATIENT NAME: Liat Vuong : 1940 TODAY'S DATE: 03/05/2016 PLANNED PROCEDURE: upper endoscopy PERTINENT HISTORY/INDICATION FOR PROCEDURE: Lita Vuong is a 75 y.o. female who i s undergoing endoscopy for evaluation of dysphagia and GERD. Last upper endoscopy 05/07/2012 with mild Schatzki ring dilated and biopsies showing Snyder's. The patient complains of dy sphagia to solid foods particularly meats at the appendectomy gastric xiphoid area she has h ad no episodes of esophageal obstruction. 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 aspirin 81 MG tablet Take 81 mg by mouth nightly. atorvaSTATin (LIPITOR) 10 mg tablet Thursday, Thursday and Thursday Calcium Carbonate-Vit D-Min (CALCIUM 1200) 4049-0026 MG-UNIT CHEW Take 1 tablet by mouth Da katina. Calcium-Vitamin D-Vitamin K (VIACTIV) 500-100-40 MG-UNT-MCG CHEW Take by mouth. carbamide peroxide (DEBROX) 6.5% otic solution Place 5 drops into both ears as needed. cyclobenzaprine (FLEXERIL) 5 MG tablet Take 5 mg by mouth nightly as needed. Diclofenac Sodium (VOLTAREN EX) Apply 1 % topically. EPINEPHrine (EPIPEN 2-HOLLEY) 0.3 mg/0.3 mL injection Inject 0.3 mg into the muscle as needed. Esomeprazole Magnesium (NEXIUM PO) Take by mouth. Patient claims 22 mg tablet hyoscyamine (LEVSIN) 0.125 mg SL tablet Take 1 tablet by mouth daily as needed, may repeat x 1 for Cramping. lansoprazole (PREVACID SOLUTAB) 30 mg disintegrating tablet Take 30 mg by mouth every morni ng (before breakfast). levothyroxine (SYNTHROID, LEVOTHROID) 75 MCG tablet Take 75 mcg by mouth Daily. losartan (COZAAR) 25 mg tablet Take 25 mg by mouth Daily. losartan-hydrochlorothiazide (HYZAAR) 100-25 MG per tablet Take 1 tablet by mouth Daily. metformin (GLUCOPHAGE) 1000 MG tablet Take 1,000 mg by mouth 2 times daily (with breakfast & dinner). metoprolol tartrate (LOPRESSOR) 25 mg tablet Take 25 mg by mouth 2 times daily. Multiple Vitamins-Minerals (MULTIVITAMIN PO) Take 1 tablet by mouth Daily. nitroglycerin (NITROSTAT) 0.[address] 0.4 mg under the tongue every 5 minutes as needed. pirbuterol (MAXAIR AUTOHALER) 200 mcg/puff inhaler Inhale 2 puffs into the lungs 4 times da katina as needed. ALLERGIES Allergies Allergen Reactions Iodine Hives IV contrast - "I was in the hospital and didn't wake up for three days" Meloxicam Swelling and Rash Swelling of throat Penicillins Hives and Swelling Throat swelling Rivaroxaban Nausea And Vomiting and Swelling Sulfa Antibiotics Hives and Swelling Cefazolin Hives and Rash [place] Extract Hives and Rash ASA CLASSIFICATION:2 EXAMINATION: Blood pressure 177/85, pulse 58, temperature 36.6 C (97.9 F), temperature source Tympan ic, resp. rate 18, height 1.549 m (5' 1"), weight 73.664 kg (162 lb 6.4 oz), SpO2 100 %. General: Alert and oriented Throat: Normal Lungs: Clear Heart: Regular rate and rhythm with out significant murmur Abdomen: obese, normal bowel sounds. Soft, nontender 1. Available medical records have been reviewed. [facility] 02/04/2016, p dennisr procedure note 2. Medication list reviewed. IMPRESSION: Dysphagia probably secondary to recurrent Schatzki's ring. Patient appropria te for procedure. PLAN: 1. Proceed with procedure as stated above with moderate sedation/analgesia 2. Procedure, indications, risks and alternatives explained to patient/family and they agre ed to proceed and consent was signed. 3. Patient will be reevaluated immediately (1-2 minutes) before sedation administration and approved for the plan as stated above. Electronically Signed by: Silvano Kaiser MD 03/05/2016 [facility] Portions of this chart may have been created with Testt voice recognition software. Occasi onal wrong-word or sound-alike substitutions may have occurred due to the inherent desai itations of voice recognition software. Please read the chart carefully and recognize, using context, where these substitutions have occurred documented in this enc ounter Miscellaneous Notes Plan of Care - Devante Castro Chaplain - 03/05/2016 11:29 AM PSTProblem: Patient Care [place] (Adult) Goal: Care Team Goals & Evaluation PROBLEM-RELATED GOALS: STRATEGY TO ACHIEVE GOALS: RESTRAINT-RELATED GOALS: STRATEGIES TO ACHIEVE RESTRAINT GOALS: Spiritual Care Lita Vuong is a 75 y.o. female who is admitted for Dysphagia, unspecified type [R 13.10] Gastroesophageal reflux disease, esophagitis presence not specified [K21.9]. 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 Spiritual Evaluation: Patient was resting comfortably in bed; she was calm and pleasant as we visited. She was at tended by Prashanth, her of 57 years who sat at the bedside and was very attentive and sup portive. She was not at all nervous; she has had this procedure before, and looks forward to being able to swallow better. She is [employer], attends [employer] [facility] in [place] , [place], and is strong in her iain. She and her appreciated the visit and welcomed pre -op prayer. Spiritual Interventions: I offered supportive listening, ministry of presence, words of encouragement, and pre-op pr charles. Spiritual Outcomes: Lita expressed appreciation for the visit and the prayer, and is hopeful for a positive o utcome. Spiritual Goals/Follow-up: No follow-up spiritual care is called for as patient expects to discharge to home following the procedure. p Note - H Silvano gaytan MD - 03/05/2016 11:15 AM PSTUpper endoscopy was remarkable for Schatzki's rin g at the upper margin of the hiatal hernia. There is an irregular Z line Eitel hernia was 4 cm in length there were multiple gastric polyps some minor antral gastritis H. pylori biops y was obtained. Patient will continue on antireflux regimen soft diet today and Nexium ther apy for past history of Snyder's metaplasiaElectronically signed by Silvano Kaiser MD at 11:15 AM PSTD-C Instructions Provation - Silvano Kaiser MD - 03/05/2016 10:42 AM P STDischarge Instructions for Upper Endoscopy Patient: Lita Vuong : 1940 Acct: [id number] Exam Date: Saturday, March 05, 2016 Doctor: Silvano Kaiser MD The chances of difficulty following this procedure are minimal. The following instruction s will assist you in your recovery. 1. Do Not eat or drink anything for 1 hour. Try sips of water first. If tolerated, resu me your regular diet or one recommended by your physician. 2. Do not drive, operate kevan ashlyn, make critical decisions, or do activities that require coordination or balance for 24 hours. 3. You may experience a sore throat for 24 - 48 hours. You may use throat lozenges or ga rgle with warm salt water to relieve the discomfort. 4. Because air was put into your stom ach druing the procedure, you may experience some belching. 5. Do not use any medication containing aspirin for 10 days, unless otherwise directed by your physician. 6. Sometimes the medications given to you druing the exam can aggravate the veins. The c hemical irritation can cause inflammation or pain along the arm with redness, swelling and warmth. This does not mean there is an infection. You can treat the affected area by appl deb warm, wet compresses (towels) 4 times a day for 20 minutes at a time until inflammatio n is resolved 7. Report to your doctor: Chills and/or fever over 100 Persistent vomiting or vomiting with blood/nasal regurgitation Severe abdominal pain, othe r than gas cramps Severe chest pain Black, tarry stools You may reach your physician at Work: Ext [phone]. If unable to reach your p sian, call [facility] Emergency Department at Ext. [phone] Your doctor recommends these additional instructions: You have a contact number available for emergencies. The signs and symptoms of potential delayed complications were discussed with you. You may return to normal activities tomorro w. Written discharge instructions were provided to you. You are being discharged to home. Eat a mechanical soft diet today. Continue your present medications. We are waiting for your pathology results. Your physician has recommended a repeat upper endoscopy as needed for retreatment. Return to your primary care physician as previously scheduled. Telephone your GI clinic if symptoms are present. Telephone your GI clinic for pathology results in one week. These instructions have been e xplained to the patient and/or escort. A copy has been given to the patient/escort. Nurse Signatur e Patient Signature Escort Signatu re Date Silvano Kaiser MD 03/05/2016 11:21:27 AM This report has been signed electronically.Electronically signed by Silvano Kaiser MD at 11:21 AM PSTdocumented in this encounter Plan of Treatment +--------+---------+ + + + | Date | Type | Specialty | Care Team | Description | +--------+---------+ + + + | 10/04/ | Office | Primary Care | Farooq Wesley | | | 2019 | Visit | | [place], [address] | | | | | | [place] | | | | | | [address] | | | | | | [phone] | | | | | | | | +--------+---------+ + + + documented as of this encounter Procedures + +--------+ + + + | Procedure Name | Priori | Date/Time | Associated Diagnosis | Comments | | | ty | | | | + +--------+ + + + | HELICOBACTER PYLORI | Routin | 03/05/2016 | | Results for this | | BIOPSY | e | 11:07 AM | | procedure are in the | | | | PST | | results section. | + +--------+ + + + | EGD | | 03/05/2016 | Dysphagia, | | | | | 10:53 AM | unspecified type | | | | | PST | Gastroesophageal | | | | | | reflux disease, | | | | | | esophagitis presence | | | | | | not specified | | + +--------+ + + + | EGD | Routin | 03/05/2016 | | Results for this | | | e | 10:42 AM | | procedure are in the | | | | PST | | results section. | + +--------+ + + + | POC GLUCOSE | Routin | 03/05/2016 | | Results for this | | | e | 10:24 AM | | procedure are in the | | | | PST | | results section. | + +--------+ + + + | SURGICAL PATHOLOGY | Routin | 03/05/2016 | | Results for this | | EXAM | e | 12:00 AM | | procedure are in the | | | | PST | | results section. | + +--------+ + + + documented in this encounter Results Helicobactor pylori Biopsy (03/05/2016 11:07 AM PST) + + + + + + [...] Specimen | + + | Tissue - Entire | | pyloric antrum (body | | structure) | + + + + + + + | Performing | Address | City/State/Zipcode | Phone Number | | Organization | | | | + + + + + | [facility] | [address] | [place] | [phone] | | [facility] | | [address] | | | - LABORATORY | | | | + + + + + EGD (03/05/2016 10:42 AM PST) + + | Specimen | + + | | + + + + -+ | Narrative | Performed At | + + -+ | | [facility] | | GastroenterologyPatient Name: Lita VuongProcedure Date: | PROVATION | | 03/05/2016 10:42 AMMRN: [id number] #: [id number] of | | | : 1Admit Type: AmbulatoryAge: 75Room: [facility] 01Gender: | | | FemaleNote Status: FinalizedAttending MD: Silvano Kaisre , | | | MDProcedure: Upper GI endoscopyIndications: | | | Esophageal dysphagiaProviders: Silvano Kaiser MD, Ruth | | | MADELIN Fajardo, Cony Reilly RN, | | | Amie Fraser, TechnicianReferring MD: Morris Wesley DO | | | (Referring MD)Medicines: Midazolam 3 mg IV, Meperidine 50 | | | mg IV, Cetacaine spray, Oxygen 4 | | | liters/min nasocannulaComplications: No immediate complications. | | | Estimated blood loss: Minimal.Procedure: Pre-Anesthesia | | | Assessment: - Prior to the procedure, a History and Physical was | | | performed, and patient medications, allergies and | | | sensitivities were reviewed. The patient's tolerance of [...] and | | | proposed procedure were verified by the physician, the nurse | | | and the calibration technician in the endoscopy suite. Mental Status | | | Examination: alert and oriented. Airway Examination: normal | | | oropharyngeal airway and neck mobility and Mallampati Class III | | | (part of the uvula and soft palate visualized). Respiratory | | | Examination: clear to auscultation. CV Examination: normal. | | | Prophylactic Antibiotics: The patient does not require | | | prophylactic antibiotics. Prior Anticoagulants: The patient has | | | taken aspirin, last dose was 3 days prior to procedure. ASA Grade | | | Assessment: II - A patient with mild systemic disease. After | | | reviewing the risks and benefits, the patient was deemed in | | | satisfactory condition to undergo the procedure. The anesthesia | | | plan was to use moderate sedation / analgesia (conscious | | | sedation). Immediately prior to administration of medications, | | | the patient was re-assessed for adequacy to receive sedatives. | | | The heart rate, respiratory rate, oxygen saturations, blood | | | pressure, adequacy of pulmonary ventilation, and response to | | | care were monitored throughout the procedure. The physical | | | status of the patient was re-assessed after the procedure. - | | | After reviewing the risks and benefits, the patient was deemed in | | | satisfactory condition to undergo the procedure. - | | | Immediately prior to [...] was re-assessed after the procedure. After obtaining | | | informed consent, the endoscope was passed under direct vision. | | | Throughout the procedure, the patient's blood pressure, pulse, | | | and oxygen saturations were monitored continuously. The Endoscope was | | | introduced through the mouth, and advanced to the third part | | | of duodenum. The upper GI endoscopy was accomplished without | | | difficulty. The patient tolerated the procedure well.Findings: | | | The cricopharyngeus, upper third of the esophagus and middle | | | third of the esophagus were normal. Biopsies were taken with a | | | cold forceps for histology. Verification of patient | | | identification for the specimen was done. Estimated blood loss | | | was minimal. The lower third of the esophagus was normal. | | | The Z-line was irregular and was found 35 cm from the incisors. | | | A moderate Schatzki ring (acquired) was found at the gastroesophageal | | | junction. A TTS dilator was passed through the scope. Dilation | | | with a 15-16.5-18 mm pyloric balloon dilator was performed. The | | | dilation site was examined and showed complete resolution of | | | luminal narrowing. Estimated blood loss was minimal. A 4 | | | cm hiatus hernia was present. Multiple diminutive sessile polyps | | | with no bleeding and no stigmata of recent bleeding were found | | | in the gastric fundus and in the gastric body. Localized mild | | | inflammation characterized by erythema and friability was found | | | in the gastric antrum. Biopsies were taken with a cold forceps for | | | Helicobacter pylori testing. Verification of patient | | | identification for the specimen was done. Estimated blood loss | | | was minimal. The duodenal bulb, first part of the duodenum, 2nd | | | part of the duodenum, area of the papilla and 3rd part of the | | | duodenum were normal. The retroflexed view confirmed previous | | | findings,Impression: - Normal cricopharyngeus, upper third of | | | esophagus and middle third of esophagus. Biopsied. - | | | Normal lower third of esophagus. - Z-line irregular, 35 cm from | | | the incisors. - Moderate Schatzki ring. Dilated. - 4 cm | | | hiatus hernia. - Multiple gastric polyps. - Gastritis. | | | Biopsied. - Normal duodenal bulb, first part of the duodenum, | | | 2nd part of the duodenum, area of the papilla and 3rd part of | | | the duodenum. - The retroflexed view confirmed previous | [...] to home | | | (ambulatory). - Mechanical soft diet today. - Continue | | | present medications. - Await pathology results. - Repeat | | | the upper endoscopy PRN for retreatment. - Return to primary | | | care physician as previously scheduled. - Telephone GI clinic if | | | symptomatic. - Telephone GI clinic for pathology results in 1 | | | week.Silvano Kaiser MD03/05/2016 11:21:27 AMThis report has been | | | signed electronically.Number of Addenda: 0Note Initiated On: | | | 03/05/2016 10:42 AMTotal Procedure Duration: 0 hours 8 minutes 54 | | | seconds Scope In: 11:03:43 AMScope Out: 11:12:37 AM [place] | | | [facility], [address] [place] [address] | | | [phone] | | | - Discharge patient to home (ambulatory). | | | - Mechanical soft diet today. | | | - Continue present medications. | | | - Await pathology results. | | | - Repeat the upper endoscopy PRN for retreatment. | | | - Return to primary care physician as previously scheduled. | | | - Telephone GI clinic if symptomatic. | | | - Telephone GI clinic for pathology results in 1 week. | | |Silvano Kaiser MD | | |03/05/2016 11:21:27 AM | | |This report has been signed electronically. | | |Number of Addenda: 0 | | |Note Initiated On: 03/05/2016 10:42 AM | | |Total Procedure Duration: 0 hours 8 minutes 54 seconds | | |Scope In: 11:03:43 AM | | |Scope Out: 11:12:37 AM | | | [facility] With [facility], [facility] [address] [place], [place] | | | [address] | | + + -+ + +---------+ + + | Performing | Address | City/State/Zipcode | Phone Number | | Organization | | | | + +---------+ + + | [facility] | | | | + +---------+ + + POC Glucose (03/05/2016 10:24 AM PST) + +---------+ + + + | Component | Value | Ref Range | Performed | Pathologist | | | | | At | Signature | + +---------+ + + + | Glucose, | 154 (H) | 70 - 150 mg/dL | [facility] | | | POC | | | [facility] | | [...] [address] | [place] | [phone] | | [facility] | | [address] | | | - LABORATORY | | | | + + + + + Surgical Pathology Exam (03/05/2016 12:00 AM PST) + + | Specimen | + + | | + + + + + | Narrative | Performed At | + + + | SPECIMEN(S): A MID ESOPHAGEAL BIOPSY SPECIMEN SOURCE: [facility] | | ESOPHAGEAL BIOPSY CLINICAL HISTORY: R13.10 (dysphagia, | [facility] | | unspecified). K21.9 (gastroesophageal reflux disease without | | | esophagitis). MICROSCOPIC DESCRIPTION: Histologic sections of all | | | submitted blocks are examined by light microscopy. These findings, | | | together with the gross examination, support the pathologic diagnosis. | | | FINAL PATHOLOGIC DIAGNOSIS: Mid esophageal biopsy: - Benign | | | esophageal mucosa, negative for increased epithelial eosinophils. | | | JVR:[facility]:C2NR GROSS DESCRIPTION: The specimen is labeled | | | "Yevgeniy Lita Meseret," and designated "mid esophageal biopsy," on | | | the requisition. It is received in formalin and consists of eight | | | cream to burgundy colored tissue fragments, 0.1 to 0.5 cm. All into | | | (A1). yt:ADALID:osito PERFORMING LABORATORY: Tissue processing and | | | slide preparation were performed by [facility] | | | [facility], [facility], [place] [address] (Military Science Instructor: Anthony Turner, | | | Franko FLORIAN#: [id number]). Professional interpretation was performed | | | by [facility], [facility], [address] | | [address] [facility], [place] [address] (Military Science Instructor: Anthony Turner M.D.; ZAHRAA#: [id number]). Diagnostician: Anthony Nassar | Cesario Turner MD Pathologist Electronically Signed 03/06/2016 | | + + + + +---------+ + + | Performing | Address | City/State/Zipcode | Phone Number | | Organization | | | | + +---------+ + + | [place] [facility] | | | | | [facility] | | | | + +---------+ + + documented in this encounter Visit Diagnoses + + | Diagnosis | + + | Dysphagia, unspecified type | + + | Gastroesophageal reflux disease, esophagitis presence not specified | + + documented in this encounter Administered Medications + +--------+ +---------+------+------+ | Medication Order | MAR | Action | Dose | Rate | Site | | | Action | Date | | | | + +--------+ +---------+------+------+ | benzocaine (HURRICAINE) 20% | Given | 03/05/20 | 1 spray | | | | spray PRN, Starting 03/05/16 | | 16 10:56 | | | | | at 1057 | | AM PST | | | | + +--------+ +---------+------+------+ +---+---+ | | | +---+---+ + +---------+ +---+-------+--------+ | lactated ringers (LR) infusion | New Bag | 03/05/20 | | 100 | Right | | at 100 mL/hr, Intravenous, | | 16 10:26 | | mL/hr | Arm | | CONTINUOUS, Starting 03/05/16 | | AM PST | | | | | at 1045, Pre-op | | | | | | + +---------+ +---+-------+--------+ +---+---+ | | | +---+---+ + +-------+ +-------+---+---+ | meperidine (DEMEROL) 100 mg/mL | Given | 03/05/20 | 50 mg | | | | injection PRN, Starting Wed | | 16 11:00 | | | | | 03/05/16 at 1100 | | AM PST | | | | + +-------+ +-------+---+---+ +---+---+ | | | +---+---+ + +-------+ +------+---+---+ | midazolam (VERSED) 5 mg/mL | Given | 03/05/20 | 1 mg | | | | injection PRN, Starting Wed | | 16 11:06 | | | | | 03/05/16 at 1102 | | AM PST | | | | + +-------+ +------+---+---+ +-------+ +------+---+---+ | Given | 03/05/20 | 1 mg | | | | | 16 11:03 | | | | | | AM PST | | | | +-------+ +------+---+---+ | Given | 03/05/20 | 1 mg | | | | | 16 11:02 | | | | | | AM PST | | | | +-------+ +------+---+---+ +---+---+ | | | +---+---+ documented in this encounter
--- OUTSIDE RECORDS SUMMARY | ~2019-09-21 | XMS | Encounter Summary ---
Demographics + + + | Address | [address] | | | [place] [address] | + + + | Home Phone | | + + + | Preferred Language | Unknown | + + + | Marital Status | | + + + | Baptist Affiliation | 1028 | + + + | Race | Unknown | + + + | Ethnic Group | Unknown | + + + Author + + + | Author | [facility] | | | and [place] | + + + | Organization | [facility] | | | and [place] | + + + | Address | Unknown | + + + | Phone | Unavailable | + + + Support + + + + + | Name | Relationship | Address | Phone | + + + + + | Prashanth Vuong | ECON | [address] | | | | | [place] | | | | | [address] | | + + + + + Care Team Providers + +------+ + | Care Air Control/Anti Air Warfare Officer Name | Role | Phone | + +------+ + | Farooq Wesley DO | PCP | | + +------+ + Reason for Visit Diagnostic/Screening (Routine) +--------+--------+ + + + + | Status | Reason | Specialty | Diagnoses / | Referred By | Referred To | | | | | Procedures | Contact | Contact | +--------+--------+ + + + + | Closed | | Respiratory | Diagnoses | [facility] | C[facility] | | | | Therapy | Bradycardia | Regional | Respiratory | | | | | Procedures | Primary Care | Therapy [address] | | | | | [address]OLTER | [address] | [address] | | | | | MON[address] | [place], | [place], [place] | | | | | HOUR | [place] | [address] | | | | | | [address] | Phone: | | | | | | Phone: | [phone] | | | | | | [phone] | Fax: | | | | | | Fax: | [phone] | | | | | | [phone] | | +--------+--------+ + + + + Encounter Details +--------+ + + + + | Date | Type | Department | Care Team | Description | +--------+ + + + + | 09/02/ | Hospital | [facility] | Farooq Wesley | Fatigue, unspecified | | 2019 | Encounter | HOSPITAL [facility] | E, DO [address] | type; Bradycardia | | | | THERAPY [address] | [place] | | | | | [place] | [address] | | | | | [address] | [phone] | | | | | [phone] | | | +--------+ + + + [...] tablet under | 25 | 11 | /19/20 | | | (NITROSTAT) 0.4 mg | [...] | | Take 1 tablet by | 90 | 3 | 08/18/19 | | | losartan-hydrochloro | mouth Daily. | tablet | | 19 | 0 | | thiazide (HYZAAR) | | | | | | | 50-12.5 MG per | | | | | | | tabletIndications: | | | | | | | Essential | | | | | | | hypertension, benign | | | | | | + [...] + + documented as of this encounter Progress Notes Edouard Luu RRT - 09/02/2018 9:24 AM PDTSetup Zio patch heart monitor for 2 days. Elsy pinto will mail recorder to [employer] when done to be scanned.Electronically messi d by Edouard Luu RRT at 09/02/2018 9:24 AM PDTdocumented in this encounter Plan of Treatment +--------+---------+ + + + | Date | Type | Specialty | Care Team | Description | +--------+---------+ + + + | 10/04/ | Office | Primary Care | Farooq Wesley | | | 2019 | Visit | | E, DO [address] | | | | | | [place] | | | | | | [address] | | | | | | [phone] | | | | | | | | +--------+---------+ + + + documented as of this encounter Procedures + +--------+ + + + | Procedure Name | Priori | Date/Time | Associated Diagnosis | Comments | | | ty | | | | + +--------+ + + + | HOLTER MONITOR - 48 | Routin | 09/15/2018 | Fatigue, | Results for this | | HOUR | e | 8:13 AM | unspecified type | procedure are in the | | | | PDT | Bradycardia | results section. | + +--------+ + + + documented in this encounter Results Holter monitor - 48 hour (09/15/2018 8:13 AM PDT) + + + | Narrative | Performed At | + + + | | | + + + + +---------+ + + | Performing | Address | City/State/Zipcode | Phone Number | | Organization | | | | + +---------+ + + | [facility] | | | | + +---------+ + + documented in this encounter Visit Diagnoses + + | Diagnosis | + + | Fatigue, unspecified type | + + | Bradycardia Other specified cardiac dysrhythmias | + + documented in this encounter"
--- OUTSIDE RECORDS SUMMARY | ~2019-09-21 | XMS | Encounter Summary ---
Demographics + + + | Address | [address] | | | [place] [address] | + + + | Home Phone [...] + | Prashanth Vuong | ECON | [address] | | | | | [place] | | | | | [address] | | + + + + + Care Team Providers + +------+ + | Care Wholesaler Name | Role | Phone | + +------+ + | Farooq Wesley DO | PCP | | + +------+ + Reason for Visit +--------+ + | Reason | Comments | +--------+ + | Other | infected dog bite | +--------+ + Encounter Details +--------+---------+ + + + | Date | Type | Department | Care Team | Description | +--------+---------+ + + + | 12/23/ | Office | [facility] | Ward, | Dog bite of hand, | | 2018 | Visit | [facility] | Ilene, BUNDLE CLERK [address] | right, initial | | | | [facility] [address] [place] | encounter (Primary | | | | [address] [place], | [place] [address] | Dx); Cellulitis of | | | | [place] [address] | [phone] | hand, right | | | | [phone] | | | +--------+---------+ + + + [...] + + + | Blood Pressure | 148/84 | 12/23/2018 10:08 AM | | | | | PDT | | + + + + + | Pulse | 59 | 12/23/2018 10:08 AM | | | | | PDT | | + + + + + | Temperature | 36.3 C (97.4 F) | 12/23/2018 10:08 AM | | | | | PDT | | + + + + + | Respiratory Rate | 18 | 12/23/2018 10:08 AM | | | | | PDT | | + + + + + | Oxygen Saturation | 98% | 12/23/2018 10:08 AM | | | | | PDT | | + + + + + | Inhaled Oxygen | - | - | | | Concentration | | | | + + + + + | Weight | - | - | | + + + + + | Height | - | - | | + + + + + | Body Mass Index | - | - | | + + + + + documented in this encounter Progress Notes Ilene Hopper, FLORES - 12/23/2018 10:00 AM PDTFormatting of this note might be differe nt from the original. Chief Complaint Patient presents with Other infected dog bite Assessment 1. Dog bite of hand, right, initial encounter - clindamycin (CLEOCIN) 300 MG capsule; Take 1 capsule by mouth 3 times daily for 7 days. Dispense: 21 capsule; Refill: 0 - ciprofloxacin (CIPRO) 500 mg tablet; Take 1 tablet by mouth 2 times daily for 7 days. Di spense: 14 tablet; Refill: 0 - Culture, Wound, Smear; Future - Culture, Wound, Smear 2. Cellulitis of hand, right Plan - wound culture today - keep area covered - start antibiotic Subjective: Patient ID: Lita Vuong is a 78 y.o. female who is new to me, presents accompanied by her , for a dog bite wound on her right hand. She stated that this was from her d og about 3 weeks ago. She cared for it herself and went on a trip to [place] and on returning , her dog got excited again and jumped on her and it got opened up again. She has been soaki ng it and applying Neosporin. This helped a little but is it now looking a little "infected" . She stated that it does drain sometimes Objective: BP 148/84 | Pulse 59 | Temp 36.3 C (97.4 F) (Temporal) | Resp 18 | LMP (LMP Unknow n) | SpO2 98% Physical Exam Musculoskeletal: Hands: Reddened are extending out from wound to surrounding skin 3cm x 4cm Social History Socioeconomic History Marital status: Spouse [...] Hives and Swelling Cefazolin Hives and Rash Harris Hives and Rash Electronically signed by FLORES Rankin 12/24/2018 07:27 Note: Part of this report was transcribed using voice recognition software. Every effort wa s made to ensure accuracy. However, inadvertent computerized log turner errors may be pre sent documented i [...] [place] | | | | | | [address] | | | | | | [phone] | | | | | | | | +--------+---------+ + + + documented as of this encounter Procedures + +--------+ + + + | Procedure Name | Priori | Date/Time | Associated Diagnosis | Comments | | | ty | | | | + +--------+ + + + | CULTURE, WOUND, | Routin | 12/23/2018 | Dog bite of hand, | Results for this | | SMEAR | e | 10:38 AM | right, initial | procedure are in the | | | | PDT | encounter | results section. | + +--------+ + + + documented in this encounter Results Culture, Wound, Smear (12/23/2018 10:38 AM PDT) + + + + + + | Component | Value | Ref Range | Performed | Pathologist | | | | | At | Signature | + + + + + + | Culture | No Growth at 2 days. | | [facility] | | | | | [facility] | | | | | [facility] | | + + + + + + | Gram Stain | No white blood cells | | [place] | | | Result | (PMNs) seen | | [facility] | | | | | | [facility] | | + + + + + + | Gram Stain | No organisms seen | | [place] | | | Result | | | [facility] | | | | | | [facility] | | + + + + + + + + | Specimen | + + | Body Fluid - Entire | | right hand (body | | structure) | + + + + + + + | Performing | Address | City/State/Zipcode | Phone Number | | Organization | | | | + + + + + | [facility] | [address] | [place] | [phone] | | [facility] | | [address] | | + + + + + documented in this encounter Visit Diagnoses + + | Diagnosis | + + | Dog bite of hand, right, initial encounter - Primary | + + | Cellulitis of hand, right Cellulitis and abscess of hand, except fingers and thumb | + + documented in this encounter
--- OUTSIDE RECORDS SUMMARY | ~2019-09-21 | XMS | Encounter Summary ---
Demographics + + + | Address | [address] | | | [place] [address] | + + + | Home Phone | | + + + | Preferred Language | Unknown | + + + | Marital Status | | + + + | Cheondoism Affiliation | 1028 | + + + | Race | Unknown | + + + | Ethnic Group | Unknown | + + + Author + + + | Author | [facility] | | | and [place] | + + + | Organization | [facility] | | | and [place] | + + + | Address | Unknown | + + + | Phone | Unavailable | + + + Support + + + + + | Name | Relationship | Address | Phone | + + + + + | Prashanth Vuong | ECON | [address] | | | | | [place] | | | | | [address] | | + + + + + Care Team Providers + +------+ + | Care Financial Operations Clerk Name | Role | Phone | + +------+ + PCP | Unavailable | + +------+ + Encounter Details +--------+ + + + + | Date | Type | Department | Care Team | Description | +--------+ + + + + | 11/17/ | Hospital | [facility] | Silvano Kaiser MD | | | 2001 | Encounter | MED CTR GENERIC OP | [address] [place] | | | | | CONV DEPT [address] | [address] [place], [place] | | | | | [place], | [address] | | | | | [place] [address] | | | | | | [phone] | | | +--------+ + + + [...] [place] | | | | | | [address] | | | | | | [phone] | | | | | | | | +--------+---------+ + + + documented as of this encounter Visit Diagnoses Not on filedocumented in this encounter"
--- OUTSIDE RECORDS SUMMARY | ~2019-09-21 | XMS | Encounter Summary ---
Demographics + + + | Address | [address] | | | [place] [address] | + + + | Home Phone | | + + + | Preferred Language | Unknown | + + + | Marital Status | | + + + | Anabaptism Affiliation | 1028 | + + + | Race | Unknown | + + + | Ethnic Group | Unknown | + + + Author + + + | Author | [facility] | | | and [place] | + + + | Organization | [facility] | | | and [place] | + + + | Address | Unknown | + + + | Phone | Unavailable | + + + Support + + + + + | Name | Relationship | Address | Phone | + + + + + | Prashatnh Vuong | ECON | [address] | | | | | [place] | | | | | [address] | | + + + + + Care Team Providers + +------+ + | Care Patient Placement Coordinator Name | Role | Phone | [...] | | | | [place], [place] | [address] | Diarrhea, | | | | [address] | [phone] | unspecified type | | | | [phone] | | | +--------+ + + + [...] 2019 | Visit | | [place], [address] | | | | | | [place] | | | | | | [address] | | | | | | [phone] | | | | | | | [...]
--- OUTSIDE RECORDS SUMMARY | ~2019-09-21 | XMS | Encounter Summary ---
Demographics + + + | Address | [address] | | | [place] [address] | + + + | Home Phone | | + + + | Preferred Language | Unknown | + + + | Marital Status | | + + + | Church Affiliation | 1028 | + + + | Race | Unknown | + + + | Ethnic Group | Unknown | + + + Author + + + | Author | [facility] | | | and [place] | + + + | Organization | [facility] | | | and [place] | + + + | Address | Unknown | + + + | Phone | Unavailable | + + + Support + + + + + | Name | Relationship | Address | Phone | + + + + + | Prashanth Vuong | ECON | [address] | | | | | [place] | | | | | [address] | | + + + + + Care Team Providers + +------+ + | Care Automotive Tire Technician Name | Role | Phone | + +------+ + | Farooq Wesley DO | PCP | | + +------+ + Reason for Visit + +--------+ + | Reason | Onset | Comments | | | Date | | + +--------+ + | Results, Pathology | 05/18/ | | | | 2012 | | + +--------+ + Encounter Details +--------+ + + + + | Date | Type | Department | Care Team | Description | +--------+ + + + + | 05/18/ | Telephone | [facility] | Curt Sandoval, | Results, Pathology | | 2012 | | GASTROENTEROLOGY | [address] | | | | | [address] | [address] [place], | | | | | [address] [place], [place] | [place] [address] | | | | | [address] | [phone] | | | | | [phone] | | | +--------+ + + + [...] this encounter Miscellaneous Notes Telephone Encounter - Ruth Fajardo RN - 05/18/2012 3:02 PM PSTCalled patient let her kno w 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 She verbalized understanding.Electronically signed by Ruth Fajardo RN at 013 3:03 PM PSTdocumented in this encounter Plan of [...] [place] | | | | | | [address] | | | | | | [phone] | | | | | | | | +--------+---------+ + + + documented as of this encounter Visit Diagnoses Not on filedocumented in this encounter
--- OUTSIDE RECORDS SUMMARY | ~2019-09-21 | XMS | Encounter Summary ---
Demographics + + + | Address | [address] | | | [place] [address] | + + + | Home Phone [...] + | Prashanth Casey | ECON | [address] | | | | | [place] | | | | | [address] | | + + + + + Care Team Providers + +------+ + | Care Deli/Bakery Associate Name | Role | Phone | + +------+ + | Farooq Wesley DO | PCP | | + +------+ + Encounter Details +--------+ + + + + | Date | Type | Department | Care Team | Description | +--------+ + + + + | 05/07/ | Hospital | [facility] | Curt Sandoval, | | | 2013 | Encounter | MED CTR MP INTRA OP | MD [address] [place] | | | | | [address] | [address] [place], | | | | | [place], [place] | [place] [address] | | | | | [address] | [phone] | | | | | [phone] | | | +--------+ + + + [...] by | | 0 | 11/06/19 | 03/20/201 | | rosiglitazone-metFOR | mouth 2 times daily. | | | 10 | 3 | | MIN (AVANDAMET) | | | | | | | 2-1000 MG per tablet | | | | | | + + + +---------+ + + documented as of this encounter Miscellaneous Notes Op Note - Curt Sandoval MD - 05/07/2012 10:30 [place] [address] Patient Name: LITA CASEY Provider: Curt Sandoval MD Unit #: [id number] Location: [facility] : 1940 Patient Name: Lita Casey Gender: F Procedure Date: 05/07/2012 10:30 AM Date of : 1940 Age: 71 Admit Type: Outpatient Room: [facility] Room 2 Note Status: Finalized Attending MD: Curt Sandoval MD Procedure: Upper GI endoscopy Indications: Dysphagia, Established esophageal reflux Providers: Curt Sandoval MD, Cony Reilly RN, Amie Fraser, Scrap Preparer, Virgilio Malik MD (Anesthesia Staff) Referring MD: Morris Wesley DO Medicines: Monitored Anesthesia Care Complications: No immediate complications. Procedure: - Prior to the procedure, a History and Physical was performed, and patient medications and allergies were reviewed. The patient is competent. The risks and benefits of the procedure and the sedation options and risks were discussed with the patient. All questions were answered and informed consent was obtained. Patient identification and proposed procedure were verified by the physician, the nurse, the anesthesiologist and the land survey technician in the endoscopy suite. Mental Status Examination: alert and oriented. Airway Examination: Mallampati Class II (the uvula but not tonsillar pillars visualized). Respiratory Examination: clear to auscultation. CV Examination: normal. Prophylactic Antibiotics: The patient does not require prophylactic antibiotics. Prior Anticoagulants: The patient has taken aspirin, last dose was 1 day prior to procedure. ASA Grade Assessment: III - A patient with severe systemic disease. After reviewing the risks and benefits, the patient was deemed in satisfactory condition to undergo the procedure. The anesthesia plan was to use monitored anesthesia care (MAC). Immediately prior to administration of medications, the patient was re-assessed for adequacy to receive sedatives. The heart rate, respiratory rate, oxygen saturations, blood pressure, adequacy of pulmonary ventilation, and response to care were monitored throughout the procedure. The physical status of the patient was re-assessed after the procedure. After obtaining informed consent, the endoscope was passed under direct vision. Throughout the procedure, the patient's blood pressure, pulse, and oxygen saturations were monitored continuously. The Endoscope was introduced through the mouth, and advanced to the third part of duodenum. The upper GI endoscopy was accomplished without difficulty. The patient tolerated the procedure well. Findings: The examined duodenum was normal. A few 4 to 6 mm sessile polyps were found in the gastric body. The exam was otherwise without abnormality.A medium-sized hiatus hernia was present. Normal mucosa was found in the entire esophagus. Biopsies were taken with a cold forceps for histology. Estimated blood loss: none. No esophageal stricture noted. Impression: - Normal examined duodenum. - A few gastric polyps. - The examination was otherwise normal. - Hiatus hernia. Recommendation: - Discharge patient to home (ambulatory). - Continue present medications. - Await pathology results. - Telephone GI clinic for pathology results in 2 weeks. Curt Sandoval MD Signed Date: 05/07/2012 10:43 AM Number of Addenda: 0 Note initiated on 05/07/2012 10:28 AM Scope Withdrawal Time: N/A Total Procedure Duration Time: 04 minutes 33 seconds Curt Sandoval MD 05/07/12 1044 documented in this encounter Plan of Treatment +--------+---------+ + + + | Date | Type | Specialty | Care Team | Description | +--------+---------+ + + + | 10/04/ | Office | Primary Care | Farooq Wesley | | | 2020 | Visit | | E, DO [address] | | | | | | [place] | | | | | | [address] | | | | | | [phone] | | | | | | | [...] (H) | 79 - 150 md/dL | [facility] | | | POC | | | [...] + | [facility] | [address] | [place] | [phone] | | [facility] | | [facility] | | | - LABORATORY | | | | + + + + + | [facility] | [address] | [place], [place] | | | [facility] | | [address] [place] [address] | | | - LABORATORY | | | | + + + + + documented in this encounter Visit Diagnoses Not on filedocumented in this encounter"
--- OUTSIDE RECORDS SUMMARY | ~2019-09-21 | XMS | Encounter Summary ---
Demographics + + + | Address | [address] | | | [place] [address] | + + + | Home Phone | | + + + | Preferred Language | Unknown | + + + | Marital Status | | + + + | Oriental Orthodox Affiliation | 1028 | + + + | Race | Unknown | + + + | Ethnic Group | Unknown | + + + Author + + + | Author | [facility] | | | and [place] | + + + | Organization | [facility] | | | and [place] | + + + | Address | Unknown | + + + | Phone | Unavailable | + + + Support + + + + + | Name | Relationship | Address | Phone | + + + + + | Prashanth Vuong | ECON | [address] | | | | | [place] | | | | | [address] | | + + + + + Care Team Providers + +------+ + | Care Assistant Spa Director Name | Role | Phone | + +------+ + PCP | Unavailable | + +------+ + Encounter Details +--------+ + + + + | Date | Type | Department | Care Team | Description | +--------+ + + + + | 11/25/ | Hospital | [facility] | Silvano Kaiser MD | | | 2006 | Encounter | MED CTR GENERIC OP | [address] [place] | | | | | CONV DEPT [address] | [address] [place], [place] | | | | | [place], | [address] | | | | | [place] [address] | | | | | | [phone] | | | +--------+ + + + [...] [place] | | | | | | [address] | | | | | | [phone] | | | | | | | | +--------+---------+ + + + documented as of this encounter Visit Diagnoses Not on filedocumented in this encounter"
--- OUTSIDE RECORDS SUMMARY | ~2019-09-21 | XMS | Clinical Summary ---
Demographics + + + | Address | [address] | | | [place] [address] | + + + | Home Phone | | + + + | Preferred Language | Unknown | + + + | Marital Status | | + + + | Yazidism Affiliation | 1028 | + + + | Race | Unknown | + + + | Ethnic Group | Unknown | + + + Author + + + | Author | [facility] | | | and [place] | + + + | Organization | [facility] | | | and [place] | + + + | Address | Unknown | + + + | Phone | Unavailable | + + + Support + + + + + | Name | Relationship | Address | Phone | + + + + + | Prashanth Vuong | ECON | [address] | | | | | [place] | | | | | [address] | | + + + + + Care Team Providers + +------+ + | Care Human Resources Recruiter Name | Role | Phone | + +------+ + | Farooq Wesley DO | PCP | | + +------+ + Allergies + + [...] | Rivaroxaban | Nausea And Vomiting, | Medium | 03/04/20 | AKA "Xeralto" | | | Swelling | | 16 | | + + + + + + | Zuni | Hives, Rash | Low | 03/04/20 | | | | | | 16 | | + + + + + + | Sulfa Antibiotics | Hives, Swelling | Medium | 11/06/19 | | | | | | 10 | | + + + + + + Medications + + + +---------+------+------+-------+ | Medication | Sig | Dispensed | Refills | Star | End | Statu | | | | | | t | Date | s | | | | | | Date | | | + + + +---------+------+------+-------+ | aspirin 81 MG | Take 81 mg by mouth | | 0 | 09/1 | | Activ | | tablet | nightly. | | | 2/20 | | e | | | | | | 12 | | | + + + +---------+------+------+-------+ | EPINEPHrine | Inject 0.3 mg into | | 0 | | | Activ | | (EPIPEN 2-HOLLEY) 0.3 | the muscle as | | | | | e | | mg/0.3 mL injection | needed. | | | | | | + + + +---------+------+------+-------+ | Multiple | Take 1 tablet by | | 0 | | | Activ | | Vitamins-Minerals | mouth Daily. | | | | | e | | (MULTIVITAMIN PO) | | | | | | | + + + +---------+------+------+-------+ | esomeprazole | Take 20 mg by mouth | | 0 | | | Activ | | (NEXIUM 24HR) 20 mg | every morning | | | | | e | | capsule | (before breakfast). | | | | | | + + + +---------+------+------+-------+ | non-formulary | External CBD oil | | 0 | | | Activ | | medication | | | | | | e | + + + +---------+------+------+-------+ | Cholecalciferol | Take 2,000 Units by | | 0 | | | Activ | | (VITAMIN D-3) 2000 | mouth Daily. | | | | | e | | units CAPS | | | | | | | + + + +---------+------+------+-------+ | nitroglycerin | Place 1 tablet under | 25 | 11 | 12/1 | | Activ | | (NITROSTAT) 0.4 mg | the tongue every 5 | tablet | | / | | e | | SL | minutes as needed. | | | 18 | | | | tabletIndications: | | | | | | | | Chest pain, | | | | | | | | unspecified type | | | | | | | + + + +---------+------+------+-------+ | ACCU-CHEK BROOKLYN | Check blood sugars | 100 | 6 | / | | Activ | | PLUS | 1-2 times a day | each | | / | | e | | stripIndications: | | | | 19 | | | | Diabetes mellitus | | | | | | | | without complication | | | | | | | | (HCC) | | | | | | | + + + +---------+------+------+-------+ | ALPRAZolam (XANAX) | Take 1 tablet by | 30 | 0 | 12/0 | | Activ | | 0.25 mg | mouth nightly as | tablet | | /20 | | e | | tabletIndications: | needed for Anxiety | | | 19 | | | | Adjustment disorder | (Take 1 hour before | | | | | | | with depressed mood | bed). | | | | | | + + + +---------+------+------+-------+ | SYNTHROID 75 MCG | TAKE ONE TABLET BY | 90 | 3 | 01/0 | | Activ | | tablet | MOUTH EVERY DAY | tablet | | 10/09 | | e | | | | | | 20 | | | + + + +---------+------+------+-------+ | amitriptyline | Take 10 mg by mouth | | 0 | 01/2 | | Activ | | (ELAVIL) 10 mg | nightly. | | | 11/09 | | e | | tabletIndications: | | | | 20 | | | | Major depressive | | | | | | | | disorder, remission | | | | | | | | status unspecified, | | | | | | | | unspecified whether | | | | | | | | recurrent | | | | | | | + + + +---------+------+------+-------+ | losartan (COZAAR) | Take 50 mg by mouth | | 0 | 03/1 | | Activ | | 50 mg | Daily. | | | 3/20 | | e | | tabletIndications: | | | | 20 | | | | Essential | | | | | | | | hypertension, benign | | | | | | | + + + +---------+------+------+-------+ | albuterol | Inhale 2 puffs into | 8 g | 6 | 03/2 | | Activ | | (VENTOLIN HFA) 90 | the lungs every 6 | | | 4/20 | | e | | mcg/puff | hours as needed for | | | 20 | | | | inhalerIndications: | Wheezing. | | | | | | | Asthma, unspecified | | | | | | | | asthma severity, | | | | | | | | unspecified whether | | | | | | | | complicated, | | | | | | | | unspecified whether | | | | | | | | persistent | | | | | | | + + + +---------+------+------+-------+ | | TAKE ONE TABLET BY | 90 | 3 | 08/21 | | Activ | | hydroCHLOROthiazide | MOUTH EVERY DAY | tablet | | 5/20 | | e | | (HYDRODIURIL) 12.5 | | | | 20 | | | | MG | | | | | | | | tabletIndications: | | | | | | | | Essential | | | | | | | | hypertension, benign | | | | | | | + + + +---------+------+------+-------+ | | Take 12.5 mg by | | 0 | 03/1 | 06 | Disco | | hydroCHLOROthiazide | mouth Daily. 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 | 03/04/2016 | + + + | GERD (gastroesophageal reflux disease) | 03/04/2016 | + + + | Dysphagia | 03/04/2016 | + + + | Diabetes mellitus type 2, controlled | 12/05/2015 | + + + | Hypothyroidism | 12/05/2015 | + + + | OBSTRUCTIVE SLEEP APNEA | 07/01/2010 | + + + | HYPERLIPIDEMIA | | + + + | SCOLIOSIS, THORACIC SPINE | | + + + | MYOFASCIAL PAIN SYNDROME | | + + + | CERVICALGIA | | + + + | Cervical spondylolysis | | + + + | Essential hypertension, benign | | + + + | H/O thrombosis | | + + + | Degeneration, intervertebral disc, cervical | | + + + | Osteoarthritis of acromioclavicular joint | | + + + + + | Overview: Right | + + + +---+ | Osteoporosis | | + +---+ + + | Overview: postmenopausal | + + + +---+ | Retinal ischemia | | + +---+ Resolved Problems + + + + | Problem | Noted | Resolved | | | Date | Date | + + + + | HTN (hypertension) | 12/05/19 | | | | 16 | 9 | + + + + | Scar | 12/05/19 | | | | 16 | 9 | + + + + | Sleep apnea | | | | | | 9 | + + + + | DM (diabetes mellitus) | | | | | | 9 | + + + + | Dyslipidemia | | | | | | 9 | + + + + | Esophageal reflux disease | | | | | | 9 | + + + + | Degeneration, intervertebral disc, cervical | | | | | | 9 | + + + + Encounters +--------+ + + + + | Date | Type | Specialty | Care Team | Description | +--------+ + + + + | 09/18/ | Office | Cardiology | Goran, | Dizziness after | | 2020 | Visit | | MYNOR Royal | extension of neck | | | | | | (Primary Dx) | +--------+ + + + + | 09/03/ | Refill | Primary Care | Farooq Wesley | Medication Refill | 2019 | | | E, DO | | +--------+ + + + + | 07/06/ | Procedure | Cardiology | Fahad Martinez, | Dizziness; | | 2019 | visit | | MD | Near syncope | +--------+ + + + + | 07/06/ | Documentati | Cardiology | Ruth Quiles, | Other (end of study) | | 2019 | on | | Technologist | | +--------+ + + + + from Last 3 Months Immunizations + + + + | Name | Administration Dates | Next Due | + + + + | INFLUENZA 65 Y OR >, | 01/11/2019, 01/04/2018, 01/07/2017, | | | TRIVALENT HIGH-DOSE | 12/10/2015, 01/11/2015, 01/02/2013, | | | | 02/03/2012, 12/04/2009 | | + + + + | INFLUENZA PF 65 Y OR | 01/04/2015 | | | >,TRIVALENT (FLUAD) | | | + + + + | INFLUENZA, [id number], | 03/15/2009 | | | INACTIVATED | | | + + + + | INFLUENZA, | 12/18/2015 | | | UNSPECIFIED | | | | FORMULATION | | | + + + + | PNEUMOCOCCAL | 01/07/2016 | | | CONJUGATE 13-VALENT | | | | (PCV13) | | | + + + + | PNEUMOCOCCAL | 03/01/2014 | | | POLYSACCHARIDE | | | | 23-VALENT (PPSV23) | | | + + + + | TDAP, (ADOL/ADULT) | 12/10/2015 | | + + + + | ZOSTER, 1 DOSE | 03/29/2010 | | | (ZOSTAVAX) | | | + + + + Family History + + +------+ + | Medical History | Relation | Name | Comments | + + +------+ + | Diabetes | Brother | | | + + +------+ + | Stroke | Daughter | | | + + +------+ + | No known problems | Father | | | + + +------+ + | Breast cancer | Maternal | | | | | Aunt | | | + + +------+ + | No known problems | Maternal | | | | | Grandfath | | | | | er | | | + + +------+ + | Diabetes | Maternal | | | | | Grandmoth | | | | | er | | | + + +------+ + | Other (see comment) | Mother | | osteoporosis | + + +------+ + | Stroke | Mother | | | + + +------+ + | Diabetes | Paternal | | | | | Grandfath | | | | | er | | | + + +------+ + | Stroke | Paternal | | | | | [...] | | + + +------+ + | Melanoma | Son | | | + + +------+ + + +------+ + + | Relation | Name | Status | Comments | + +------+ + + | Brother | | | | | | | (Age | | | | | 74) | | + +------+ + + | Daughter | | Alive | | + +------+ + + | Daughter | | Alive | | + +------+ + + | Father | | | traumatic cerebral hemorrhage | | | | (Age | | | | | 38) | | + +------+ + + | Maternal Aunt | | | | + +------+ + + | Maternal Grandfather | | | | + +------+ + + | Maternal Grandmother | | | | + +------+ + + | Mother | | | several CVAs | | | | (Age | | | | | 82) | | + +------+ + + | Paternal Grandfather | | | | + +------+ + + | Paternal Grandmother | | | | + +------+ + + | Sister | | Alive | | + +------+ + + | Son | | Alive | | + +------+ + + | Son | | Alive | | + +------+ + + Social History + +-------+ +--------+------+ [...] Given: No | + + + + +---------+ + | Alcohol Use | Drinks/Week | oz/Week | Comments | + + +---------+ + | Yes | 1 Glasses of wine | 1.0 | 2-3 glasses of wine | | | | | weekly | + + +---------+ + + + [...] + + + | Blood Pressure | 138/68 | 09/19/2019 10:12 AM | | | | | PDT | | + + + + + | Pulse | 58 | 09/19/2019 10:12 AM | | | | | PDT | | + + + + + | Temperature | 36.4 C (97.6 F) | 09/19/2019 10:12 AM | | | | | PDT | | + + + + + | Respiratory Rate | 16 | 06/14/2019 3:50 AM | | | | | PDT | | + + + + + | Oxygen Saturation | 99% | 09/19/2019 10:12 AM | | | | | PDT | | + + + + + | Inhaled Oxygen | - | - | | | Concentration | | | | + + + + + | Weight | 68.8 kg (151 lb 9.6 | 09/19/2019 10:12 AM | | | | oz) | PDT | | + + + + + | Height | 154.9 cm (5' 1") | 09/19/2019 10:12 AM | | | | | PDT | | + + + + + | Body Mass Index | 28.64 | 09/19/2019 10:12 AM | | | | | PDT | | + + + + + Plan of Treatment +--------+---------+ + + + | Date | Type | Specialty | Care Team | Description | +--------+---------+ + + + | 10/04/ | Office | Primary Care | Farooq Wesley | | | 2019 | Visit | | [address] | | | | | | [place] | | | | | | [address] | | | | | | [phone] | | | | | | | | +--------+---------+ + + + + + + + + | Health Maintenance | Due Date | Last | Comments | | | | Done | | + + + + + | Breast Cancer | | | | | Screening | 6 | | | + + + + + | Vaccine: Zoster (2 | | 03/29/19 | | | of 3) | 1 | 11 | | + + + + + | Adult Annual | | | | | Wellness Visit | 5 | | | + + + + + | Hemoglobin A1c | | 02/08/20 | | | Screening | 0 | 19, | | | | | 08/18/19 | | | | | 19, | | | | | 01/20/20 | | | | | 18, | | | | | Addition | | | | | al | | | | | history | | | | | exists | | + + + + + | Diabetic Foot Exam | | 08/26/19 | | | | 0 | 19 | | + + + + + | Primary Care | | 09/19/19 | | | Outreach (Intense | 0 | 20, | | | Risk) | | 06/14/19 | | | | | 20, | | | | | 02/25/20 | | | | | 19, | | | | | Addition | | | | | al | | | | | history | | | | | exists | | + + + + + | Diabetic Eye Exam | | 01/06/20 | | | | 0 | 18 | | + + + + + | Vaccine: | | 12/10/19 | | | Dtap/Tdap/Td (2 - | 6 | 16 | | | Td) | | | | + + + + + | Vaccine: | Completed | 01/07/20 | | | Pneumococcal 65+ | | 16, | | | | | 12/10/20 | | | | | 14 | | + + + + + | Vaccine: Influenza | Completed | 01/12/20 | | | | | 19, | | | | | 01/05/20 | | | | | 18, | | | | | 01/08/20 | | | | | 17, | | | | | Addition | | | | | al | | | | | history | | | | | exists | | + + + + + [...] + +--------+ | MEDICARE | MEDICA | [id number] | 05/22/19 | [phone] | | Medica | | | RE | | 06-Pre | 5 | | re | | | PART A | | sent | | | | | | AND B | | | | | | + +--------+ +--------+ + +--------+ | MEDICARE | MEDICA | [id number] | 05/22/19 | [phone] | | Medica | | | RE | | 06-Pre | 5 | | re | | | PART A | | sent | | | | | | AND B | | | | | | + +--------+ +--------+ + +--------+ | MODA | MODA | [id number] | 05/22/19 | [phone] | [address] | Indemn | | | HEALTH | | 08-Pre | 9 | [phone] | ity | | | MDCR | | sent | | [place], | | | | [place] | | | | [place] [address] | | + +--------+ +--------+ + +--------+ | MEDICARE | MEDICA | [id number] | 05/22/19 | [phone] | | Medica | | | RE | | 06-Pre | 5 | | re | | | PART A | | sent | | | | | | AND B | | | | | | + +--------+ +--------+ + +--------+ | MODA | MODA | [id number] | 03/23/19 | [phone] | [address] | Indemn | | | HEALTH | | 17-Pre | 9 | [phone] | ity | | | MDCR | | sent | | [place], | | | | [place] | | | | [place] [address] | | + +--------+ +--------+ + +--------+ | MODA | MODA | [id number] | 03/23/19 | [phone] | [address] | Indemn | | | HEALTH | | 19-Pre | 9 | [phone] | ity | | | MDCR | | sent | | [place], | | | | [place] | | | | [place] [address] | | + +--------+ +--------+ + +--------+ + +--------+ +--------+ + + | Guarantor Name | Accoun | Relation to | Date | Phone | Billing Address | | | t Type | Patient | of | | | | | | | | | | + +--------+ +--------+ + + | Lita Vuong | Person | Self | [address] | | [address] | | | al/Fam | | 1941 | [phone] | [address] [place], [place] | | | [place] | | | 3 (Home) | [address] | + +--------+ +--------+ + + | Lita Vuong | Person | Self | [birth year] | | [address] | | | al/Fam | | 1941 | [phone] | [address] [place], [place] | | | [place] | | | 3 (Home) | [address] | + +--------+ +--------+ + + | Lita Vuong | Person | Self | [address] | | [address] | | | al/Fam | | 1941 | [phone] | [address] [place], [place] | | | [place] | | | 3 (Home) | [address] | + +--------+ +--------+ + + | Lita Vuong | Third | Self | [birth year] | | [address] | | | Republican | | 1941 | [phone] | [place] | | | [place] | | | [address] ([place]) | [address] | | | ity | | | | | + +--------+ +--------+ + + Advance Directives + + + + + | Type | Date Recorded | Patient | Explanation | | | | Irish Moss Gatherer | | + + + + + | Power of | | | | | Drying Unit Felting Machine Operator | | | | + + + + + | Advance | 03/05/2016 | | | | Directive | 8:17 AM | | | + + + + +
--- OUTSIDE RECORDS SUMMARY | ~2019-09-21 | XMS | Encounter Summary ---
Demographics + + + | Address | [address] | | | [place] [address] | + + + | Home Phone | | + + + | Preferred Language | Unknown | + + + | Marital Status | | + + + | Oriental Orthodox Affiliation | 1028 | + + + | Race | Unknown | + + + | Ethnic Group | Unknown | + + + Author + + + | Author | [facility] | | | and [place] | + + + | Organization | [facility] | | | and [place] | + + + | Address | Unknown | + + + | Phone | Unavailable | + + + Support + + + + + | Name | Relationship | Address | Phone | + + + + + | Prashanth Vuong | ECON | [address] | | | | | [place] | | | | | [address] | | + + + + + Care Team Providers + +------+ + | Care Market Stall Vendor Name | Role | Phone | + [...] trochanteric | | 2018 | Visit | [facility] | E, DO [address] | bursitis of left | | | | [facility] [address] | [place], [place] | hip (Primary Dx); | | | | [address] [place], | [address] | Essential | | | | [place] [address] | [phone] | hypertension; | | | | [phone] | | Controlled type 2 | | [...] 9:30 AM JESSICALita Vuong presents today with [facility] Complaint of: Re-establish care. LEFT hip pain [...] Chief Complaint: Chief Complaint Patient presents with [facility] Re-establish care Hip Pain LEFT hip pain [...] Vitamin D3 1,000-2,000 units daily -Go to [facility] in January while fasting for blood work [...] complications and tolerated well. 0.50cc (40mg/1ml) TAC [facility] [address]-8 LOT [id number] EXP 04/11 and 1.0cc 1% lidocaine [facility] 90640-631-66 LOT [id number] EXP 09/11 injected into Left great troch #2 PARQ Lesion treated with LN, freeze thaw times 4 cycles Procedure no complications and tolerated well. Recommended Influenza, she declined today she will get it in [place]. Current Outpatient Prescriptions Medication Sig Dispense Refill [...] Procedure: EGD; Surgeon: Silvano Kaiser MD; Location: [facility] UPPER GASTROINTESTINAL ENDOSCOPY N/A 02/03/2017 Procedure: EGD; Surgeon: Silvano Kaiser MD; [facility] Social History Social History [...] Hives and Swelling Cefazolin Hives and Rash [place] Hives and Rash Review of Systems Constitutional: [...] normal mood and affect. Entered by Brian Lynn, acting as scribe for Dr. Maryjane DO. The documentation recorded by the scribe accurately reflects the service I personally perfo [facility] and the decisions made by me. Dr. Farooq Wesley DO. 12/08/2017 10:19 documented in this encounter Miscellaneous Notes Addendum Note - Brian Lynn - 12/08/2017 9:30 AM PDT Addended by: BRIAN LYNN on: 13:16 Modules accepted: Orders documented in this encou nter Plan of Treatment +--------+---------+ + + + | Date | Type | Specialty | Care Team | Description | +--------+---------+ + + + | 10/04/ | Office | Primary Care | Farooq Wesley | | | 2019 | Visit | | [address] | | | | | | [place] | | | | | | [address] | | | | | | [phone] | | | | | | | [...] + + + | [facility] | [address] | [place], [place] | [phone] | | [facility] | | [address] | | | [facility] | [...] | mL/min/1.73m2 | [facility] | | | [facility] | RATE,ESTIMATED | | [facility] | | | | mL/min/1.77a5Zqmn than | | [facility] | | | [...] | | | | hrs | | [facility] | | | | [...] + + | [facility] | [address] | [place] | [phone] | | [facility] | | [address] | | | [facility] | [...]
--- OUTSIDE RECORDS SUMMARY | ~2019-09-21 | XMS | Encounter Summary ---
Demographics + + + | Address | [address] | | | [place] [address] | + + + | Home Phone | | + + + | Preferred Language | Unknown | + + + | Marital Status | Single | + + + | Nondenominational Affiliation | Unknown | + + + | Race | Unknown | + + + | Ethnic Group | Other Race | + + + Author + + + | Author | [facility] | + + + | Organization | [facility] | + + + | Address | Unknown | + + + | Phone | Unavailable | + + + Support + + +---------+ + | Name | Relationship | Address | Phone | + + +---------+ + | None None | ECON | Unknown | Unavailable | + + +---------+ + Care Team Providers + +------+ + | Care Motion Picture Set Up Worker Name | Role | Phone | [...] | | [address] | [address] | | | | | | [place], | [address] | | | | | | [place] | [place], [place] | | | | | | [address] | [address] | | | | | | Phone: | Phone: | | | | | | [phone] | [phone] | | | | | | Fax: | Fax: | | | | | | [phone] | [phone] | +--------+--------+ + + + + Encounter Details +--------+---------+ + + + | Date | Type | Department | Care Team | Description | +--------+---------+ + + + | 01/06/ | Office | Otolaryngology | Rachid Steele | 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 | MD Lita [address] | paralysis of vocal | | | | at [facility] [address] | [address] | cord (Primary Dx); | | | | Ave [place], [place] | [place], [place] | Dysphonia; | | | | [address] | [address] | Pharyngeal dysphagia | | | | [phone] | [phone] | | | | | | | [...] 12:28 AM PST PATIENT: Lita Vuong MR#: [id number] : 1940 REQUESTING PROVIDER: Farooq Wesley DO [facility] [address] [place] [address] PRIMARY CARE PROVIDER: Farooq Wesley DO CLINIC: [facility] CHIEF COMPLAINT: Chief Complaint Patient presents with New patient consultation Hoarseness HPI: Lita Vuong is a 71 y.o. 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 Her vocal demand s are primarily [...] Vuong is . 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 She lives [place], [place] She does have children. She does not have supportive friends or family members in the [place] area. FAMILY HX: Family History Problem Relation [...] and symmetric throughout. The pupils are equal. Senior Db2 Systems Programmer strength does mary jo ear full bilaterally. [...] Laryngovideostroboscopy was performed today by Elva Parekh CCC-CAPTAIN FISHING VESSEL. R eview of laryngovideostroboscopy demonstrates laryngeal anatomy [...] and benefits of the procedure and obtaining [facility] consent, Ms. Vuong was brought to the [...] 1.7 cc of sterile saline to the steam bone press tender's inst ructions. This was loaded into a [...] persists to l imit her trips to [place]. Informed consent was obtained in the office. I will forward th e information to my medical assistant dermatology to arrange a surgical date and pre-operative evaluation. Rachid Steele M.D. Adobe Cq Developer Laryngology and Head & Neck Surgery documented in this encounter Plan of Treatment Not on filedocumented as of this encounter Procedures + +--------+ + + + | Procedure Name | Priori | Date/Time | Associated Diagnosis | Comments | | | ty | | | | + +--------+ + + + | CA | Routin | 02/15/2012 | Left complete [...]
--- OUTSIDE RECORDS SUMMARY | ~2019-09-21 | XMS | Encounter Summary ---
Demographics + + + | Address | [address] | | | [place] [address] | + + + | Home Phone | | + + + | Preferred Language | Unknown | + + + | Marital Status | Single | + + + | Episcopalian Affiliation | Unknown | + + + | Race | Unknown | + + + | Ethnic Group | Other Race | + + + Author + + + | Author | [facility] | + + + | Organization | [facility] | + + + | Address | Unknown | + + + | Phone | Unavailable | + + + Support + + +---------+ + | Name | Relationship | Address | Phone | + + +---------+ + | None None | ECON | Unknown | Unavailable | + + +---------+ + Care Team Providers + +------+ + | Care Oyster Washer Name | Role | Phone | + +------+ + | Farooq Wesley DO | PCP | | + +------+ + Encounter Details +--------+ + + + + | Date | Type | Department | Care Team | Description | +--------+ + + + + | 04/20/ | Ancillary | Registration 1 | | | | 2006 | Registratio | [address] | | | | [address] | [address] Mailcode: [id number] | | | | | | [place], [place] | | | | | | [address] | | | | | | [phone] | | | +--------+ + + + [...] Not on filedocumented as of this encounter Visit Diagnoses Not on filedocumented in this encounter"
--- OUTSIDE RECORDS SUMMARY | ~2019-09-21 | XMS | Encounter Summary ---
Demographics + + + | Address | [address] | | | [place] [address] | + + + | Home Phone | | + + + | Preferred Language | Unknown | + + + | Marital Status | | + + + | Congregational Affiliation | 1028 | + + + [...] + | Prashanth Vuong | ECON | [address] | | | | | [place] | | | | | [address] | | + + + + + Care Team Providers + +------+ + | Care Die Casting Machine Operator Name | Role | Phone [...] Procedures | [address], | | | | | [place] UPPER GI | [address], [place] | [address] | | | | | ENDOSCOPY,DI | [address] [place] | [place], | | | | | AGNOSIS [place] | [place], [place] | [place] [address] | | | | | UPPER GI | [address] | Phone: | | | | | ENDOSCOPY,BI | Phone: | [phone] | | | | | OPSY | [phone] | Fax: | | | | | | Fax: | [phone] | | | | | | [phone] | | +--------+ + + + + + Reason for Visit + +--------+ + | Reason | Onset | Comments | | | Date | | + +--------+ + | Appointment | 09/21/ | | | | 2012 | | + +--------+ + Encounter Details +--------+ + + + + | Date | Type | Department | Care Team | Description | +--------+ + + + + | 09/21/ | Telephone | [facility] | Silvano Kaiser MD | Appointment | | 2012 | | GASTROENTEROLOGY | [address], [place] | | | | | [address] [place] | [address] [place], [place] | | | | | [address] [place], [place] | [address] | | | | | [address] | | | | | | [phone] | | | +--------+ + + + [...] this encounter Miscellaneous Notes Telephone Encounter - Brenda Darling RN - 09/21/2012 11:54 AM PDTSpoke with patient and scheduled for 10/25/12 check in 0700.Electronically signed by Brenda Darling RN at 0 09/21/2012 11:58 AM PDTTelephone Encounter - Anika Santos - 09/21/2012 10:35 AM PDTPatient adrian schroeder to speak with Cipriano. She said she needed to set up a appointment for a endoscopy. Mera call her back on her home number. 10:3 5 AM PDTdocumented in this encounter Plan of Treatment +--------+---------+ + + + | Date | Type | Specialty | Care Team | Description | +--------+---------+ + + + | 10/04/ | Office | Primary Care | Farooq Wesley | | | 2019 | Visit | | DO [place] | | | | | | [place] | | | | | | [address] | | | | | | [phone] | | | | | | | [...]
--- OUTSIDE RECORDS SUMMARY | ~2019-09-21 | XMS | Encounter Summary ---
Demographics + + + | Address | [address] | | | [place] [address] | + + + | Home Phone [...] + | Prashanth Vuong | ECON | [address] | | | | | [place] | | | | | [address] | | + + + + + Care Team Providers + +------+ + | Care Rotary Derrick Operator Name | Role | Phone | + +------+ + | Farooq Wesley DO | PCP | | + +------+ + Reason for Visit + +--------+ + | Reason | Onset | Comments | | | Date | | + +--------+ + | Procedure | 01/08/ | EGD | | | 2016 | | + +--------+ + Encounter Details +--------+ + + + + | Date | Type | Department | Care Team | Description | +--------+ + + + + | 01/08/ | Telephone | [facility] | Silvano Kaiser MD | Procedure (EGD) | | 2017 | | GASTROENTEROLOGY | [address], [place] | | | | | [address] [place] | [address] [place], [place] | | | | | [address] [place] | [address] | | | | | [address] | | | | | | [phone] | | | +--------+ + + + [...] this encounter Miscellaneous Notes Telephone Encounter - Maday Lincoln RN - 01/08/2017 4:08 PM PDTScheduled pt for pr opofol EGD with Dr. Patterson on 02/03/17 at 0830; pt has dyskinesia of esophagus; she wanted to wait until hunting season over to schedule; reviewed medication, surg/med hx and allergies; reviewed prep; info mailed to pt; completed case request order, notes to MA. documented in this encounter Plan of Treatment +--------+---------+ + + + | Date | Type | Specialty | Care Team | Description | +--------+---------+ + + + | 10/04/ | Office | Primary Care | Farooq Wesley | | | 2019 | Visit | | E, DO [address] | | | | | | [place] | | | | | | [address] | | | | | | [phone] | | | | | | | | +--------+---------+ + + + documented as of this encounter Visit Diagnoses + + | Diagnosis | + + | Dyskinesia of esophagus - Primary | + + | Advanced age Reserved for inherently not codable concepts WITHOUT codable children | + + documented in this encounter"
--- OUTSIDE RECORDS SUMMARY | ~2019-09-21 | XMS | Encounter Summary ---
Demographics + + + | Address | [address] | | | [place] [address] | + + + | Home Phone | | + + + | Preferred Language | Unknown | + + + | Marital Status | | + + + | Confucianism Affiliation | 1028 | + + + | Race | Unknown | + + + | Ethnic Group | Unknown | + + + Author + + + | Author | [facility] | | | and [place] | + + + | Organization | [facility] | | | and [place] | + + + | Address | Unknown | + + + | Phone | Unavailable | + + + Support + + + + + | Name | Relationship | Address | Phone | + + + + + | Prashanth Vuong | ECON | [address] | | | | | [place] | | | | | [address] | | + + + + + Care Team Providers + +------+ + | Care Net Lead Architect Name | Role | Phone | + +------+ + | Farooq Wesley DO | PCP | | + +------+ + Reason for Visit + +--------+ + | Reason | Onset | Comments | | | Date | | + +--------+ + | Results, Pathology | 05/03/ | maria elena arzate | | | 2018 | | + +--------+ + Encounter Details +--------+ + + + + | Date | Type | Department | Care Team | Description | +--------+ + + + + | 05/03/ | Telephone | [facility] | Silvano Kaiser MD | Results, Pathology | | 2019 | | GASTROENTEROLOGY | [address], [place] | (egd,colon) | | | | [address] [place] | [address] [place], [place] | | | | | [address] [place], [place] | [address] | | | | | [address] | | | | | | [phone] | | | +--------+ + + + [...] Telephone Encounter - Brenda Darling RN - 05/03/2018 10:50 AM PSTNotified patient th at H Pylori biopsy from stomach was negative. Duodenal biopsies normal. Biopsies from righ t and left colon normal. Stool studies negative, lactoferrin negative. Dr. Kaiser asks for an update on her swallowing after the esophageal dilatation. Patient states she is swallow ing so much better and says to thank Dr. Kaiser. She was able to eat steak. She did have so me slight difficulty with meat loaf yesterday though. She states she will not wait so long before calling. She states she had difficulty with her swallowing for the past year. Dr. Michael gaytan asks for update on the diarrhea. Patient states she did not pass a stool for a week af ter the colonoscopy. She states stools are more solid now and she states she can get to the bathroom in time now. She agrees to call if diarrhea returns. She will also call if any f urther difficulty with her swallowing. She has not had any imaging of her abdomen. She say s again to be sure and thank Dr. Kaiser. documented in this encounter Plan of Treatment [...] [place] | | | | | | [address] | | | | | | [phone] | | | | | | | | +--------+---------+ + + + documented as of this encounter Visit Diagnoses Not on filedocumented in this encounter"
--- OUTSIDE RECORDS SUMMARY | ~2019-09-21 | XMS | Encounter Summary ---
Demographics + + + | Address | [address] | | | [place] [address] | + + + | Home Phone | | + + + | Preferred Language | Unknown | + + + | Marital Status | Single | + + + | Yarsani Affiliation | Unknown | + + + | Race | Unknown | + + + | Ethnic Group | Other Race | + + + Author + + + | Author | [facility] | + + + | Organization | [facility] | + + + | Address | Unknown | + + + | Phone | Unavailable | + + + Support + + +---------+ + | Name | Relationship | Address | Phone | + + +---------+ + | None None | ECON | Unknown | Unavailable | + + +---------+ + Care Team Providers + +------+ + | Care Turret Lathe Set Up Operator Name | Role | Phone | + +------+ + | Farooq Wesley DO | PCP | | + +------+ + Reason for Visit Speech Therapy (Routine) +--------+--------+ + + + + | Status | Reason | Specialty | Diagnoses / | Referred By | Referred To | | | | | Procedures | Contact | Contact | +--------+--------+ + + + + | Closed | | Speech | | Maryjane, | Ent Speech | | | | Therapy | | DO Farooq | [address] | | | | | | [address] | [place] | | | | | | [place], | Mailcode: | | | | | | [place] | [id number] [place] | | | | | | [address] | [facility] | | | | | | Phone: | and Healing, | | | | | | [phone] | [address], | | | | | | Fax: | 15th Floor | | | | | | [phone] | [place], [place] | | | | | | | [address] | | | | | | | Phone: | | | | | | | [phone] | | | | | | | Fax: | | | | | | | [phone] | +--------+--------+ + + + + Encounter Details +--------+---------+ + + + | Date | Type | Department | Care Team | Description | +--------+---------+ + + + | 01/06/ | Office | [facility]ol[facility]ology [facility] | Elva Parekh, | Dysphonia; | | 2011 | Visit | [facility] | [facility] [address] | Dysphagia, | | | | Swallowing at [facility] | [address] | pharyngeal phase; | | | | [address] | [place] [address] | Unilateral complete | | | | Mailcode: [id number] | [phone] | paralysis of vocal | | | | [facility] | | cords or larynx | | | | and Healing, | | | | | | | | | | | | Floor [place], [place] | | | | | | [address] | | | | | | [phone] | | | +--------+---------+ + + + [...] documented as of this encounter Progress Notes Elva Parekh CCC-BRAKE ASSEMBLER - 01/08/2012 8:08 AM PDT VOICE EVALUATION CLINIC: [facility] CLINIC DATE: 01/07/2012 REFERRING PHYSICIAN: Farooq Wesley MD PRIMARY DIAGNOSIS: 1. Dysphonia 2. Dysphagia, pharyngeal phase 3. 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 Dysphonia 2. Dysphagia, pharyngeal phase 3. 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 Farooq Wesley for a complete evaluation and and treatment. The patient reports that she underwent right thyroid lobectomy on September 29, 2011 and experienced normal vo icing for ~1 month following that procedure. In October 2011 she experienced acute change in vocal quality that has persisted since onset. She does not associate any specific event or illness to the onset. She returned to her ENT who identified a left true vocal fold paraly sis. She has participated in 3 sessions of voice therapy with limited benefit. She present s today with complaints of: hoarseness, poor vocal quality, fluctuating voice, weak voice, p itch rising, pitch dropping, pitch breaks, effortful voicing, inability to yell, trouble voi cing in noise, and difficulty being understood over the telephone. She notes that voicing i s effortful and she experiences decline in vocal quality and vocal fatigue with extended jonathan jin. She occasionally feels short of breath with conversational speech. She notes difficu lty getting her 's attention and difficulty communicating even across a room. She is avoiding telephone use due to her voicing difficulty. Her reports that her voice i s closest to normal in the early a.m., but she does not experience periods of normal voicing . Her voice does not improve with rest. This evaluation was completed in cooperation with Dr. Rachid Steele M.D.. Please refer to his report for details regarding the medical diagnosis. 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 She describes herself as talkati ve with daily vocal demands for conversation and telephone use. She consumes 32 ounces of w ater daily and 20 ounces of caffeinated soda, as well as 1 alcoholic beverage per day. She has never been a smoker. She has a history of asthma and GERD. SINGING: The patient enjoys recreational episcopal singing, but is currently unable to sing du e to her voicing difficulty. SWALLOWING : The patient reports a 2-year history of difficulty swallowing meats and breads due to foods sticking in her throat. Since the onset of her voicing difficulty, she report s intermittent coughing on liquids. She reports that she is able to swallow liquids without difficulty if she is careful to take small sips. PERCEPTUAL ASSESSMENT: The patient's voice was dysphonic characterized by a hoarse, strain ed and breathy vocal quality. There were not audible spasms during phonation. The patient' s pitch was within normal limits for her age and gender. Loudness was reduced. Speech was within normal limits. Speech rate was within normal limits. Resonance waswithin normal desai its. Breathing pattern was thoracic. Breath support for speech was fair. Coordination of breath and voice was poor. The patient's speech intelligibility was approximately 100%. [facility] Consensus Auditory-Perceptual Evaluation of Voice (CAPE-V) was completed with the lilianein g results: overall severity = 32/100, roughness = 43/100, breathiness = 0/100, strain = 28/1 00, pitch = 11/100, loudness = 10/100, and resonance is normal. Voice Handicap Index = 52/120 where the higher the score indicates a more significant impac t on ADLs. ACOUSTIC MEASURES: The laryngeal function studies were completed using the [facility] with a hand- held microphone with a 15cm shanika to mouth distance. All measures were obtained using Real Shukri e Pitch with the VRP button on with the energy shift at 19.5dB applied, with the exception o f the perturbation measures, which were completed using the MD Advanced program. Maximum phonation time = 7 seconds. Fundamental frequency in a sustained vowel = 211 Hz on VQA and 231 Hz on MPT. Pitch range = 231 Hz. Minimum pitch = 155 Hz. and Maximum pitch = 386 Hz. Diplophonia was noted at high pitch. Shimmer = 0.531dB (Normal =0.176dB for females, 0.219d B for males) and Jitter = 3.008% (Normal = 0.633% for females, 0.589% for males). Fundament al frequency in reading = 184 Hz. Loudness = 78 dB in a sustained vowel and 79 dB in readin g. LARYNGEAL EXAMINATION: The patient was identified by name and prior to initiation of th e procedure. Laryngoscopy was completed using the flexible distal chip telescope. The anyi ent was sprayed with Lidocaine and Phenylephrine to each nostril prior to the examination af ter verbal consent. The patient tolerated the procedure well. The vocal folds were well vis ualized. The vocal folds were white with smooth edges. The right medial edge is straight and the left medial edge is bowed. Therewere no lesions noted bilaterally. The left true voca l fold is immobile in the paramedian position. The right true vocal fold demonstrates full range of motion for adduction and abduction. There was increased supraglottic activity duri ng phonation and connected speech. Supraglottic activity was characterized by mild-moderat lateral squeezing of the false vocal folds. Vocal fold elongation during glissando was nor mal. During stroboscopy, vertical level of the vocal folds was equal. Glottic closure was i ncomplete with a wedge shaped gap. The mucosal wave was normal bilaterally. Amplitude of vi bration was normal bilaterally. Phase symmetry was sometimes irregular. Vibratory behavior was always present. Education was completed with verbal information and video review. Education provided regar ding the nature of dysphonia secondary to a left vocal fold paralysis. The patient appeared to understand all information presented. 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 RECOMMENDATIONS/PLAN: 1. Dr. Steele and Dr. Meléndez counseled the patient regarding management options. Please see Dr. Steele's note for complete details of his plan of care. Elva Parekh M.S., [facility] Speech-Language Pathologist [facility] Department of Otolaryngology [facility] [place] [address] Appointments: documented in this encounter Plan of Treatment Not on filedocumented as of this encounter Procedures + +--------+ + + + | Procedure Name | Priori | Date/Time | Associated Diagnosis | Comments | | | ty | | | | + +--------+ + + + | MS LARYNGEAL | Routin | 01/08/2012 | Dysphonia | | | FUNCTION STUDIES | e | 8:08 AM | Unilateral complete | | | | | PDT | paralysis of vocal | | | | | | cords or larynx | | + +--------+ + + + | MS SPEECH & HEARING | Routin | 01/08/2012 | Dysphonia | | | EVALUATION | e | 8:08 AM | Unilateral complete | | | | | PDT | paralysis of vocal | | | | | | cords or larynx | | + +--------+ + + + | MS | Routin | 01/08/2012 | Dysphonia | | | LARYNGOSCOPY,FLEX/RI | e | 8:08 AM | Unilateral complete | | | GID+STROBOSCOPY | | PDT | paralysis of vocal | | | | | | cords or larynx | | + +--------+ + + + documented in this encounter Visit Diagnoses + + | Diagnosis | + + | Dysphonia | + + | Dysphagia, pharyngeal phase | + + | 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
--- OUTSIDE RECORDS SUMMARY | ~2019-09-21 | XMS | Encounter Summary ---
Demographics + + + | Address | [address] | | | [place] [address] | + + + | Home Phone [...] Author + + + | Author | [facility] | + + + | Organization | [facility] | + + + | Address | Unknown | + + + | Phone | Unavailable | + + + Support + + +---------+ + | Name | Relationship | Address | Phone | + + +---------+ + | None None | ECON | Unknown | Unavailable | + + +---------+ + Care Team Providers + +------+ + | Care Surgical Garment Fitter Name | Role | Phone | + [...] [id number] | | | | | | [place], [place] | | | | | | [address] | | | | | | [phone] | | | +--------+ + + + [...]
--- OUTSIDE RECORDS SUMMARY | ~2019-09-21 | XMS | Encounter Summary ---
Demographics + + + | Address | [address] | | | [place] [address] | + + + | Home Phone [...] + | Prashanth Vuong | ECON | [address] | | | | | [place] | | | | | [address] | | + + + + + Care Team Providers + +------+ + | Care Clutch Inspector Name | Role | Phone | + +------+ + | Farooq Wesley DO | PCP | | + +------+ + Reason for Visit + +--------+ + | Reason | Onset | Comments | | | Date | | + +--------+ + | Lab Results | 02/09/ | | | | 2018 | | + +--------+ + Encounter Details +--------+ + + + + | Date | Type | Department | Care Team | Description | +--------+ + + + + | 02/09/ | Telephone | [facility] | Farooq Wesley | Lab Results | | 2019 | | [facility] | E, DO [address] | | | | | MEDICAL CL[facility] [address] | [place], [place] | | | | | [address] [place], | [address] | | | | | [place] [address] | [phone] | | | | | [phone] | | | +--------+ + + + [...] Notes Telephone Encounter - Hiral Tracy CC CMA - 02/09/2019 2:02 PM PSTPt was notified an d verbally states understanding. RICHARD Valente CMA elephone Encounter - Alec Maurer DNP - 2018 11:55 AM PSTCurrent hemoglobin A1c is 6.1%. This is an improvement from 5 months ago. Continue doing what you're doing. Diabetes is well controlled at this time. elephone Encounter - Hiral Tracy CC CMA - 02/09/2019 11:26 AM PSTPlease advise. RICHARD Valente CMAElectronically s igned by RICHARD Estrada CMA at 02/09/2019 11:26 AM PSTTelephone Encounter - Shoshana Osman - 02/09/2019 10:41 AM PSTPt is calling for her A1C results since pt had to rs her appt today. Please call with lab results Thanks Uzma documented in t his encounter Plan of Treatment +--------+---------+ + + + | Date | Type | Specialty | Care Team | Description | +--------+---------+ + + + | 10/04/ | Office | Primary Care | Farooq Wesley | | | 2019 | Visit | | E, DO [address] | | | | | | [place], [place] | | | | | | [address] | | | | | | [phone] | | | | | | | | +--------+---------+ + + + documented as of this encounter Visit Diagnoses Not on filedocumented in this encounter"
--- OUTSIDE RECORDS SUMMARY | ~2019-09-21 | XMS | Encounter Summary ---
Demographics + + + | Address | [address] | | | [place] [address] | + + + | Home Phone | | + + + | Preferred Language | Unknown | + + + | Marital Status | Single | + + + | Alevism Affiliation | Unknown | + + + | Race | Unknown | + + + | Ethnic Group | Other Race | + + + Author + + + | Author | [facility] | + + + | Organization | [facility] | + + + | Address | Unknown | + + + | Phone | Unavailable | + + + Support + + +---------+ + | Name | Relationship | Address | Phone | + + +---------+ + | None None | ECON | Unknown | Unavailable | + + +---------+ + Care Team Providers + +------+ + | Care Product Merchandiser Name | Role | Phone | + [...] of | | 2005 | Visit | [facility] | | Urine (Primary Dx); | | | | [address] | | Urgency of | | | | [address] | | Urination; Urge | | | | Pavilion, 7th floor | | Incontinence | | | | [place], [place] | | | | | | [address] | | | | | | [phone] | | | +--------+---------+ + + + [...] | + + +--------+ + + | [place] | Procedures | Routin | Incontinence of [...] [facility] | [address] | [place], [place] | | | [facility] | [address] | [address] | | | TESTS | | | | + + + + + | [facility] | [address] | [place], [place] | | | TESTS | [facility] | [address] | | + + + + + documented in this encounter Visit Diagnoses + + | Diagnosis | + + | Incontinence of urine - Primary Unspecified urinary incontinence | + + | Urgency of urination | + + | Urge incontinence | + + documented in this encounter
--- OUTSIDE RECORDS SUMMARY | ~2019-09-21 | XMS | Encounter Summary ---
Demographics + + + | Address | [address] | | | [place] [address] | + + + | Home Phone | | + + + | Preferred Language | Unknown | + + + | Marital Status | Single | + + + | Episcopal Affiliation | Unknown | + + + | Race | Unknown | + + + | Ethnic Group | Other Race | + + + Author + + + | Author | [facility] | + + + | Organization | [facility] | + + + | Address | Unknown | + + + | Phone | Unavailable | + + + Support + + +---------+ + | Name | Relationship | Address | Phone | + + +---------+ + | None None | ECON | Unknown | Unavailable | + + +---------+ + Care Team Providers + +------+ + | Care Director Of Physiotherapy Services Name | Role | Phone | + [...] | | | | [place] | [address] [place] | | | | | | [address] | for Health | | | | | | Phone: | and Healing, | | | | | | [phone] | Building [address], | | | | | | Fax: | 15th Floor | | | | | | [phone] | [place], [place] | | | | | | | [address] | | | | | | | Phone: | | | | | | | [phone] | | | | | | | Fax: | | | | | | | [phone] | +--------+--------+ + + + + Encounter Details +--------+---------+ + + + | Date | Type | Department | Care Team | Description | +--------+---------+ + + + | 01/06/ | Office | Otol[facility]ology [facility] | Elva Parekh, | Dysphonia; | | 2011 | Visit | [facility] | [facility]-DESIGN SALES CONSULTANT [address] | Dysphagia, | | | | Swallowing at [facility] | [address] | pharyngeal phase; | | | | [address] | [place] [address] | Unilateral complete | | | | Mailcode: [id number] | [phone] | paralysis of vocal | | | | [facility] | | cords or larynx | | | | and Healing, | | | | | | | | | | | | Floor [place], [place] | | | | | | [address] | | | | | | [phone] | | | +--------+---------+ + + + [...] of this encounter Progress Notes Elva Parekh CCC-DESIGN SALES CONSULTANT - 01/08/2012 8:08 AM PDT VOICE EVALUATION CLINIC: [facility] CLINIC DATE: 01/07/2012 [...] REFERRAL: Lita Vuong was referred to the [facility] for [facility] and Swallowing by Dr. Farooq [...] and GERD. SINGING: The patient enjoys recreational orthodox singing, but is currently unable to sing [...] The patient's speech intelligibility was approximately 100%. [facility] Consensus Auditory-Perceptual Evaluation of Voice (CAPE-V) [...] laryngeal function studies were completed using the [facility] with a hand- held microphone with [...] his plan of care. Elva Parekh M.S., [facility]-DESIGN SALES CONSULTANT Speech-Language Pathologist [facility] Department of Otolaryngology [facility] [place] [address] Appointments: documented in this encounter Plan of Treatment Not on filedocumented as of this encounter Procedures + +--------+ + + + | Procedure Name | Priori | Date/Time | Associated Diagnosis | Comments | | | ty | | | | + +--------+ + + + | MT LARYNGEAL | Routin | 01/08/2012 | Dysphonia | | | FUNCTION STUDIES | e | 8:08 AM | Unilateral complete | | | | | PDT | paralysis of vocal | | | | | | cords or larynx | | + +--------+ + + + | MT SPEECH & HEARING | Routin | 01/08/2012 | Dysphonia | | | EVALUATION | e | 8:08 AM | Unilateral complete | | | | | PDT | paralysis of vocal | | | | | | cords or larynx | | + +--------+ + + + | MT | Routin | 01/08/2012 | Dysphonia | [...]
--- OUTSIDE RECORDS SUMMARY | ~2019-09-21 | XMS | Encounter Summary ---
Demographics + + + | Address | [address] | | | [place] [address] | + + + | Home Phone | | + + + | Preferred Language | Unknown | + + + | Marital Status | | + + + | Yarsani Affiliation | 1028 | + + + | Race | Unknown | + + + | Ethnic Group | Unknown | + + + Author + + + | Author | [facility] | | | and [place] | + + + | Organization | [facility] | | | and [place] | + + + | Address | Unknown | + + + | Phone | Unavailable | + + + Support + + + + + | Name | Relationship | Address | Phone | + + + + + | Prashanth Vuong | ECON | [address] | | | | | [place] | | | | | [address] | | + + + + + Care Team Providers + +------+ + | Care Pathology Teacher Name | Role | Phone | + +------+ + | Farooq Wesley DO | PCP | | + +------+ + Encounter Details +--------+ + + + + | Date | Type | Department | Care Team | Description | +--------+ + + + + | 02/03/ | Hospital | [facility] | Silvano Kaiser MD | Esophageal dysphagia | | 2017 | Encounter | MED [facility] OP | [address], [place] | (Primary Dx) | | | | [address] | [address] [place], [place] | | | | | [place], [place] | [address] | | | | | [address] | | | | | | [phone] | | | +--------+ + + + [...] + + + +---------+ + + | ACCU-MELANIEK [facility] | | | 6 | 12/10/19 [...] encounter H&P Notes Silvano Kaiser MD - 02/03/2017 10:02 AM PSTThe patient has no questions consent form is si gned we'll proceed with upper endoscopy probable esophageal dilatation for evaluation and tr eatment of dysphagia ar Silvano reynoso MD - 02/02/2017 10:42 AM PST PRE-ENDOSCOPY HISTORY AND PRE-SEDATION ASSESSMENT PATIENT NAME: Lita Vuong : 1940 TODAY'S DATE: 02/03/2017 PLANNED PROCEDURE: upper endoscopy PERTINENT HISTORY/INDICATION FOR PROCEDURE: Lita Vuong is a 76 y.o. female who i s undergoing upper endoscopy for evaluation of dysphagia. The patient complains of solid fo od particularly meats getting stuck at the xiphoid process. She has a history of Schatzki's ring dilated to 54 [place] TTS technique , previous dilatation in 2012. 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 Benign hypertension Cervical spondylolysis Degeneration, intervertebral disc, cervical DM (diabetes mellitus) (HCC) Dysphagia Esophageal reflux disease GERD (gastroesophageal reflux disease) H/O thrombosis History of cervical cancer Hyperlipidemia Hypertension Osteoporosis postmenopausal Rotator cuff tendonitis Sleep apnea Stroke syndrome (HCC) PAST SURGICAL HISTORY Past Surgical History: Procedure Laterality Date BREAST REDUCTION SURGERY 1993 bilateral COLONOSCOPY 10/25/12 HYSTERECTOMY THYROID SURGERY hemithyroidectomy - right TOTAL KNEE ARTHROPLASTY May, right, partial UPPER GASTROINTESTINAL ENDOSCOPY 10/25/12 next due 10/2013 UPPER GASTROINTESTINAL ENDOSCOPY N/A 03/05/2016 Procedure: EGD; Surgeon: Silvano Kaiser MD; Location: [facility] HOME MEDS: Prior to Admission medications Medication Sig Taking? ACCU-CHEK BROOK[place]N PLUS strip aspirin 81 MG tablet Take 81 mg by mouth nightly. Calcium Carbonate-Vit D-Min (CALCIUM 1200) 8185-6634 MG-UNIT CHEW Take 1 tablet by mouth Da katina. cyclobenzaprine (FLEXERIL) 5 MG tablet Take 5 mg by mouth nightly as needed. EPINEPHrine (EPIPEN 2-HOLLEY) 0.3 mg/0.3 mL injection Inject 0.3 mg into the muscle as needed. levothyroxine (SYNTHROID, LEVOTHROID) 75 MCG tablet Take 75 mcg by mouth Daily. losartan-hydrochlorothiazide (HYZAAR) 100-25 MG per tablet Take 1 tablet by mouth Daily. metoprolol succinate (TOPROL-XL) 25 mg 24 hr tablet Multiple Vitamins-Minerals (MULTIVITAMIN PO) Take 1 tablet [...] Hives and Swelling Cefazolin Hives and Rash [place] Hives and Rash ASA CLASSIFICATION:3 EXAMINATION: Blood pressure 186/72, pulse 55, temperature 36.3 C (97.3 F), temperature source Tempor al, resp. rate 16, height 1.549 m (5' 1"), weight 72.5 kg (159 lb 13.3 oz), SpO2 99 %. General: Alert and orientedx3 Throat: Normal Lungs: Clear Heart: Regular rate and rhythm with out significant murmur Abdomen: flat, normal bowel sounds. Soft, nontender 1. Available medical records have been reviewed. Prior procedure note as listed above [facility] 12/18/2016 2. Medication list reviewed. IMPRESSION: dysphagia probably secondary to recurrent Schatzki's ring. Patient appropriat e for procedure. PLAN: 1. Proceed with procedure as stated above with propofol sedation/analgesia due to advanced age and JOSSELINE. 2. Procedure, indications, risks and alternatives explained to patient/family and they agre ed to proceed and consent was signed. 3. Patient will be reevaluated immediately (1-2 minutes) before sedation administration and approved for the plan as stated above. Electronically Signed by: Silvano Kaiser MD 02/03/2017 [facility] Portions of this chart may have been created with [employer] voice recognition software. Occasi onal wrong-word or sound-alike substitutions may have occurred due to the inherent desai itations of voice recognition software. Please read the chart carefully and recognize, using context, where these substitutions have occurred documented in this encounter Miscellaneous Notes Op Note - Silvano Kaiser MD - 02/03/2017 10:15 AM PSTUpper endoscopy was remarkable for co mplex Schatzki's ring in the distal esophagus. EG junction was at 38 cm with a small Umesh ki's ring proximal to the the EG junction there was another esophageal ring. Both rings wer e dilated to 60 [place] via TTS technique with disruption of both rings. There was some sujey r antral gastritis as such H. pylori biopsy was obtained. Patient be discharged to eat soft diet today and follow-up depend upon her response to dilatation. If she continues to have dysphagia perhaps esophageal manometrics would be appropriate -C Instructions Provation - Silvano Kaiser MD - 01/21 9:42 AM PSTDischarge Instructions for Upper Endoscopy Patient: Lita Vuong : 1940 Acct: [id number] Exam Date: Friday, February 03, 2017 Doctor: Silvano Kaiser MD The chances of [...] If unable to reach your physician, call [facility] Emergency Department at Ext. [phone] Your doctor recommends these additional instructions: You have a contact number available for emergencies. The signs and symptoms of potential delayed complications were discussed with you. You may return to normal activities tomorrow. Written discharge instructions were provided to you. You are being discharged to home. Eat a mechanical soft diet today. Continue your present medications. Your physician has recommended a repeat upper endoscopy as needed for retreatment. Return to your primary care physician as previously scheduled. Telephone your GI clinic if symptoms are present. These instructions have been explained to the patient and/or escort. A copy has been given to the patient/escort. Nurse Signature Patient Signature Escort Signature Date Silvano Kaiser MD 02/03/2017 10:23:57 AM This report has been signed electronically.Electronically signed by Silvano Kaiser MD at 10:24 AM PSTdocumented in this encounter Plan of Treatment +--------+---------+ + + + | Date | Type | Specialty | Care Team | Description | +--------+---------+ + + + | 10/04/ | Office | Primary Care | Farooq Wesley | | | 2019 | Visit | | E, [address] | | | | | | [place] | | | | | | [address] | | | | | | [phone] | | | | | | | [...] r pylori Ag | | | [facility] | | [...] + + | [facility] | [address] | [place] | [phone] | | [facility] | | [address] | | | - LABORATORY | | | | + + + + + KWABENA (02/03/2017 9:42 AM BAMBI) + + | Specimen | + + | | + + + + -+ | Narrative | Performed At | + + -+ | | [facility] | | GastroenterologyPatient Name: Lita VuongProcedure Date: | PROVATION | | 02/03/2017 9:42 AMMRN: [id number] #: [id number] of : | | | 1940dmit Type: AmbulatoryAge: 76Room: [facility] 01Gender: FemaleNote | | | Status: FinalizedAttending MD: Silvano Kaiser , [facility]cedure: | | | Upper GI endoscopyIndications: Esophageal | | | dysphagiaProviders: Silvano Kaiser MD, Rosi Perez RN, | | | Amie Fraser, [employer] Ax Solution Architect, Dash | | | MD Danelle (Anesthesia [...] | | | the anesthesiologist and the front end technician in the endoscopy suite. | | [...] | | 10:05:09 AMScope Out: 10:11:26 AM [facility] | | | [place], [address] [place] [address] | | | - Discharge patient to [...] |Scope Out: 10:11:26 AM | | | [facility], [address] [place] [address] | | | [address] | | + + -+ + +---------+ + + | Performing | Address | City/State/Rustcode | Phone Number | | Organization | [...] + + | [facility] | [address] | [place] | [phone] | | [facility] | | [address] | | | - LABORATORY | | [...]
--- OUTSIDE RECORDS SUMMARY | ~2019-09-21 | XMS | Encounter Summary ---
Demographics + + + | Address | [address] | | | [place] [address] | + + + | Home Phone | | + + + | Preferred Language | Unknown | + + + | Marital Status | | + + + | Advent Affiliation | 1028 | + + + | Race | Unknown | + + + | Ethnic Group | Unknown | + + + Author + + + | Author | [facility] | | | and [place] | + + + | Organization | [facility] | | | and [place] | + + + | Address | Unknown | + + + | Phone | Unavailable | + + + Support + + + + + | Name | Relationship | Address | Phone | + + + + + | Prashanth Vuong | ECON | [address] | | | | | [place] | | | | | [address] | | + + + + + Care Team Providers + +------+ + | Care Development Lead Name | Role | Phone | + +------+ + | Farooq Wesley DO | PCP | | + +------+ + Encounter Details +--------+ + + + + | Date | Type | Department | Care Team | Description | +--------+ + + + + | 04/23/ | Anesthesia | [facility] | Virgilio Covarrubias | | | 2019 | Event | [facility] | Todd DIAZ MD [address] | | | | | [address] | [address] [place] | | | | | [place], [place] | [place] [address] | | | | | [address] | [phone] | | | | | [phone] | | | +--------+ + + + + Anesthesia Record + + + + + | Procedure Name | Responsible | Anesthesia Start | Anesthesia Stop Time | | | Anesthesiologist | Time | | + + + + + | KWABENA (N/A Naomy) | Virgilio Covarrubias | 04/23/18 1217 | 04/23/18 1309 | | | MD EMILY | | | + + + + + +----+---+ + + | Da | T | Event | Comment | | te | i | | | | | m | | | | | e | | | +----+---+ + + | 02 | 1 | | | | /0 | 1 | | | | 1/ | 2 | | | | 20 | 1 | | | | 19 | | | | +----+---+ + + | | 1 | An Checkout | Pre-use anesthesia machine/equipment checkout. | | | 2 | | | | | 0 | | | | | 5 | | | +----+---+ + + | | 1 | An Start | Reassessment prior to anesthesia induction/procedure. | | | 2 | | | | | 1 | | | | | 7 | | | +----+---+ + + | | 1 | AN | Per surgeon request | | | 2 | Antibiotic | | | | 1 | declined | | | | 7 | | | +----+---+ + + | | 1 | First | | | | 2 | Inc/Proc St | | | | 2 | | | | | 1 | | | +----+---+ + + | | 1 | Pre-Procedu | | | | 2 | ral Timeout | | | | 2 | Completed | | | | 2 | | | +----+---+ + + | | 1 | an stop | | | | 3 | data | | | | 0 | | | | | 3 | | | +----+---+ + + | | 1 | An Stop | Patient handed off to recovery nurse. | | | 0 | | | | | 9 | | | +----+---+ + + +------+ | Meds | +------+ + + + | Name | Total | + + + | propofol (DIPRIVAN) injection | 110 mg | | (bolus) (20 mL) | | + + + | propofol (DIPRIVAN) injection | 590.46 mg | | (bolus) (20 mL) | | + + + | lidocaine 2% | 40 mg | + + + | metoprolol | 2 mg | + + + | lactated ringers (LR) infusion | 700 mL | + + + + + | Name | + + | O2 Flow Rate (L/Min) | + + + + | No blood administrations on file. | + + +--------+ + + + | Type | Details | Placement | Removal | +--------+ + + + | Periph | 04/23/18; 1134; Right; Forearm; | 04/23/18 1134 by | 04/23/18 1400 by | | abel | [id number] catheter system; | Rica Ware, | Cecy Means RN | | IV | 20 gauge, 1 1/4 in length; | RN | | | | intradermal injection, tolerated | | | | | well; 04/23/18; 1400 | | | +--------+ + + + [...] encounter OR Notes Anesthesia Postprocedure Evaluation - Virgilio Covarrubias II, MD - 04/23/2018 3:26 PM PSTF ormatting of this note might be different from the original. ANESTHESIA POSTANESTHESIA EVALUATION Lita Vuong 77 y.o. female 1940 [id number] Procedure(s) EGD (N/A Mouth) COLONOSCOPY (N/A Rectum) Cooperates? Yes Mental Status Performs simple tasks. Respiratory Satisfactory - Airway patent (self maintained). Cardiovascular Satisfactory - Blood pressure and heart rate acceptable Temperature Satisfactory Pain Satisfactory N/V Control Satisfactory Hydration Satisfactory - No signs of dehydration Complications None apparent Vitals: 04/23/18 1309 04/23/18 1318 04/23/18 1332 BP: 122/49 136/53 Pulse: (!) 48 (!) 49 56 Temp: Resp: SpO2: 96% 99% 98% Electronically signed by Virgilio Covarrubias II, MD 04/23/2018 15:26 [facility] nesthesia Preprocedure Evaluation - Virgilio Covarrubias II, MD - 04/23/2018 11:21 AM PST ANESTHESIA PREANESTHESIA EVALUATION Lita Vuong 77 y.o. female 1940 [id number] Procedure(s): EGD (N/A Mouth) COLONOSCOPY (N/A Rectum) Review of Systems / Med History Cardiovascular (+) hypertension, angina (+) PVD: , Exercise tolerance <4 METS Pulmonary (+) asthma(+) sleep apnea: Neurology (+) CVA, scoliosis Gastrointestinal/Hepatic (+) hyperlipidemia Endocrine (+) hypothyroidism (+) Diabetes: Physical Exam Airway MP II, TM >3 FB, Mouth opening >2 FB. Neck: full ROM, extends >30 degrees. Jaw protrus ion normal. CV Rhythm regular. Rate normal. Anesthesia Plan ASA 3 Type: TIVA. Induction: Intravenous. Potential problems: None anticipated. Monitors: Standard ASA monitors. Consent statement: . Consenting person understands and agrees to proceed. Electronically Signed by: Virgilio Covarrubias II, MD ESig date/time: 04/23/2018 11:21 documented in this encounter Plan of Treatment +--------+---------+ + + + | Date | Type | Specialty | Care Team | Description | +--------+---------+ + + + | 10/04/ | Office | Primary Care | Maryjane Farooq | | | 2019 | Visit | | E, [address] | | | | | | [place] | | | | | | [address] | | | | | | [phone] | | | | | | | | +--------+---------+ + + + documented as of this encounter Visit Diagnoses Not on filedocumented in this encounter Administered Medications + +--------+ +-------+------+------+ | Medication Order | MAR | Action | Dose | Rate | Site | | | Action | Date | | | | + +--------+ +-------+------+------+ | lidocaine (PF) 2% injection | Given | 04/23/19 | 40 mg | | | | Intravenous, PRN, Starting Fri | | 19 12:17 | | | | | 04/23/18 at 1217, Anesthesia | | PM PST | | | | | Intra-op | | | | | | + +--------+ +-------+------+------+ +---+---+ | | | +---+---+ + +-------+ +------+---+---+ | metoprolol tartrate (LOPRESSOR) | Given | 04/23/19 | 2 mg | | | | injection Intravenous, PRN, | | 19 12:35 | | | | | Starting Thu04/23/18 at 1235, | | PM PST | | | | | Anesthesia Intra-op | | | | | | + +-------+ +------+---+---+ +---+---+ | | | +---+---+ + +-------+ +-------+---+---+ | propofol (DIPRIVAN) injection | Given | 04/23/19 | 50 mg | | | | Intravenous, PRN, Starting Fri | | 19 12:54 | | | | | 04/23/18 at 1217, Anesthesia | | PM PST | | | | | Intra-op | | | | | | + +-------+ +-------+---+---+ +-------+ +-------+---+---+ | Given | 04/23/19 | 20 mg | | | | | 19 12:19 | | | | | | PM PST | | | | +-------+ +-------+---+---+ | Given | 04/23/19 | 20 mg | | | | | 19 12:18 | | | | | | PM PST | | | | +-------+ +-------+---+---+ +---+---+ | | | +---+---+ + +---------+ + +-------+---+ | propofol (DIPRIVAN) injection | New Bag | 04/23/19 | 200 | 90.8 | | | Intravenous, CONTINUOUS PRN, | | 19 12:17 | mcg/kg/m | mL/hr | | | Starting 04/23/18 at 1217, | | PM PST | in | | | | Anesthesia Intra-op | | | | | | + +---------+ + +-------+---+ +---+---+ | | | +---+---+ documented in this encounter"
--- OUTSIDE RECORDS SUMMARY | ~2019-09-21 | XMS | Encounter Summary ---
Demographics + + + | Address | [address] | | | [place] [address] | + + + | Home Phone | | + + + | Preferred Language | Unknown | + + + | Marital Status | | + + + | Anabaptism Affiliation | 1028 | + + + | Race | Unknown | + + + | Ethnic Group | Unknown | + + + Author + + + | Author | [facility] | | | and [place] | + + + | Organization | [facility] | | | and [place] | + + + | Address | Unknown | + + + | Phone | Unavailable | + + + Support + + + + + | Name | Relationship | Address | Phone | + + + + + | Prashanth Vuong | ECON | [address] | | | | | [place] | | | | | [address] | | + + + + + Care Team Providers + +------+ + | Care Field Operations Supervisor Name | Role | Phone | + +------+ + | Farooq Wesley DO | PCP | | + +------+ + Reason for Visit + +--------+ + | Reason | Onset | Comments | | | Date | | + +--------+ + | Injections | 06/01/ | | | | 2020 | | + +--------+ + Encounter Details +--------+ + + + + | Date | Type | Department | Care Team | Description | +--------+ + + + + | 06/01/ | Telephone | [facility] | Farooq Wesley | Injections | | 2020 | | [facility] | E, DO [address] | | | | | [facility] [address] | [place], [place] | | | | | [address] [place], | [address] | | | | | [place] [address] | [phone] | | | | | [phone] | | | +--------+ + + + [...] this encounter Miscellaneous Notes Telephone Encounter - [place], [place] L - 06/02/2019 2:21 PM PDTPt is scheduled for 20 m inutes appt on 06/07/19 at 8:00. [place] Cancino elephone Encounter - Maria G Burgess CC OCEAN EXPORT ACCOUNT MANAGER - 06/02/2019 12:18 PM PDTPlease schedule as listed by Dr. Wesley. RICHARD Carter [facility] elephone Encounte r - Farooq Wesley DO - 06/02/2019 11:46 AM PDTPlease put pt in my schedule for 20 misty te trigger point injection. 11: 46 AM PDTTelephone Encounter - Patrica Ozuna - 06/02/2019 10:33 AM PDTDrShilo Wesley's tea m - Please advise. Can you place a referral or does pt need to be seen and evaluated? Thanks, Gregronically signed by Patrica Ozuna at 06/02/2019 10:34 AM PDTTelephone Encount er - Patrica Ozuna - 06/02/2019 10:05 AM PDTPt is scheduled 06/13/19 with Chaya for a s hot in her hip, and to discuss a hand issue. I tried to get pt in with Maryjane but he was linda oked out too far for pt. Pt states that she doesn't know that the shot is called, but she lynn s had it before. I'm wondering if she thinks its a trigger point injection. She wants to get the shot during her apt when she comes from [place]. Please advise. Thanks, Gregronically signed by Patrica Ozuna at 06/02/2019 10:07 AM PDTdocumented in thi s encounter Plan of Treatment +--------+---------+ + + + | Date | Type | Specialty | Care Team | Description | +--------+---------+ + + + | 10/04/ | Office | Primary Care | Farooq Wesley | | | 2019 | Visit | | DO [place] [address] | | | | | | [place] | | | | | | [address] | | | | | | [phone] | | | | | | | | +--------+---------+ + + + documented as of this encounter Visit Diagnoses Not on filedocumented in this encounter"
--- OUTSIDE RECORDS SUMMARY | ~2019-09-21 | XMS | Encounter Summary ---
Demographics + + + | Address | [address] | | | [place] [address] | + + + | Home Phone | | + + + | Preferred Language | Unknown | + + + | Marital Status | | + + + | Sikhism Affiliation | 1028 | + + + [...] + | Prashanth Vuong | ECON | [address] | | | | | [place] | | | | | [address] | | + + + + + Care Team Providers + +------+ + | Care Hide Cleaner Name | Role | Phone | + [...] | | | | [address] [facility] | | | | | | [address] [place] | | | | | | [address] | | | | | | [phone] | | | +--------+ + + + [...] ST | | | | | | [place] | | | | | | [address] | | | | | | [phone] | | | | | | | | +--------+---------+ + + + documented as of this encounter Visit Diagnoses Not on filedocumented in this encounter"
--- OUTSIDE RECORDS SUMMARY | ~2019-09-21 | XMS | Encounter Summary ---
Demographics + + + | Address | [address] | | | [place] [address] | + + + | Home Phone | | + + + | Preferred Language | Unknown | + + + | Marital Status | Single | + + + | Rastafarian Affiliation | Unknown | + + + | Race | Unknown | + + + | Ethnic Group | Other Race | + + + Author + + + | Author | [facility] | + + + | Organization | [facility] | + + + | Address | Unknown | + + + | Phone | Unavailable | + + + Support + + +---------+ + | Name | Relationship | Address | Phone | + + +---------+ + | None None | ECON | Unknown | Unavailable | + + +---------+ + Care Team Providers + +------+ + | Care Time Study Observer Name | Role | Phone | + [...] | | | | | [place] | [place], [place] | | | | | | [address] | [address] | | | | | | Phone: | Phone: | | | | | | [phone] | [phone] | | | | | | Fax: | Fax: | | | | | | [phone] | [phone] | +--------+--------+ + + + + Encounter Details +--------+---------+ + + + | Date | Type | Department | Care Team | Description | +--------+---------+ + + + | 01/06/ | Office | Otolaryngology | Rachid Steele | 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 [address] | [address] | [place] (Primary Dx); | | | | [address] [place], [place] | [place], [place] | Dysphonia; | | | | [address] | [address] | Pharyngeal dysphagia | | | | [phone] | [phone] | | | | | | | [...] 12:28 AM PST PATIENT: Lita Vuong MR#: [id number] : 1940 REQUESTING PROVIDER: Farooq Wesley DO [facility] [address] [place] [address] PRIMARY CARE PROVIDER: Farooq Wesley DO CLINIC: [facility] CHIEF COMPLAINT: Chief Complaint Patient presents with New patient consultation Hoarseness HPI: Lita Vuong is a 71 y.o. 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 Her vocal demand s are primarily [...] Vuong is . 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 She lives [place], [place] She does have children. She does not have supportive friends or family members in the [place] area. FAMILY HX: Family History Problem Relation [...] and symmetric throughout. The pupils are equal. Director Investor Relations strength does mary jo ear full bilaterally. [...] Laryngovideostroboscopy was performed today by Elva Parekh CCC-METAL INSPECTOR. R eview of laryngovideostroboscopy demonstrates laryngeal anatomy [...] and benefits of the procedure and obtaining [facility] consent, Ms. Vuong was brought to the [...] 1.7 cc of sterile saline to the lead pressman's inst ructions. This was loaded into a [...] persists to l imit her trips to [place]. Informed consent was obtained in the office. I will forward th e information to my assistant quality manager to arrange a surgical date and pre-operative evaluation. Rachid Steele M.D. Preload Supervisor Laryngology and Head & Neck Surgery documented in this encounter Plan of Treatment Not on filedocumented as of this encounter Procedures + +--------+ + + + | Procedure Name | Priori | Date/Time | Associated Diagnosis | Comments | | | ty | | | | + +--------+ + + + | ME | Routin | 02/15/2012 | Left complete [...]
--- OUTSIDE RECORDS SUMMARY | ~2019-09-21 | XMS | Encounter Summary ---
Demographics + + + | Address | [address] | | | [place] [address] | + + + | Home Phone | | + + + | Preferred Language | Unknown | + + + | Marital Status | | + + + | Anglican Affiliation | 1028 | + + + | Race | Unknown | + + + | Ethnic Group | Unknown | + + + Author + + + | Author | [facility] | | | and [place] | + + + | Organization | [facility] | | | and [place] | + + + | Address | Unknown | + + + | Phone | Unavailable | + + + Support + + + + + | Name | Relationship | Address | Phone | + + + + + | Prashanth Vuong | ECON | [address] | | | | | [place] | | | | | [address] | | + + + + + Care Team Providers + +------+ + | Care Tag Maker Name | Role | Phone | + +------+ + | Farooq Wesley DO | PCP | | + +------+ + Reason for Visit + +--------+ + | Reason | Onset | Comments | | | Date | | + +--------+ + | Suture / Staple | 02/23/ | | | Removal | 2019 | | + +--------+ + Encounter Details +--------+ + + + + | Date | Type | Department | Care Team | Description | +--------+ + + + + | 02/23/ | Telephone | [facility] | Farooq Wesley | Suture / Staple | | 2019 | | [facility] | E, DO [address] | Removal | | | | [facility] [address] | [place], [place] | | | | | [address] [place], | [address] | | | | | [place] [address] | [phone] | | | | | [phone] | | | +--------+ + + + [...] this encounter Miscellaneous Notes Telephone Encounter - Arabella Lucero - 02/23/2019 2:43 PM PSTPatient returned call and I informed her that Dr. Wesley would look at the stitches to be removed at her appointment t omorrow. Arabella Oconnor Lucero elephone Encounter - Patrica Solitario - 02/23/2019 2:42 PM PSTLeft vm for pt letting her know. Thanks, Rosaectronically signed by Patrica Ozuna at 02/23/2019 2:42 PM PSTTelephone Encount er - Farooq Wesley DO - 02/23/2019 1:53 PM PSTWe'll look at it tomorrow.Electronicall y signed by Farooq Wesley DO at 02/23/2019 1:53 PM PSTTelephone Encounter - Patrica Ozuna - 02/23/2019 12:33 PM PSTPt has an appt tomorrow, 02/24/[address] Wesley could pull her stitches out while she was there. Pt states that she has four stitche s on her face, and they were supposed to be taken out on Thursday. I believe pt said she had a spot of cancer removed. Pt states that this was done by a derm in [place], but she does n ot know the name of the derm. Please advise. Thanks, Gregronically signed by Patrica Ozuna at 02/23/2019 12:35 PM PSTdocumented in thi s encounter Plan of Treatment [...] [place] | | | | | | [address] | | | | | | [phone] | | | | | | | | +--------+---------+ + + + documented as of this encounter Visit Diagnoses Not on filedocumented in this encounter"
--- OUTSIDE RECORDS SUMMARY | ~2019-09-21 | XMS | Encounter Summary ---
Demographics + + + | Address | [address] | | | [place] [address] | + + + | Home Phone | | + + + | Preferred Language | Unknown | + + + | Marital Status | | + + + | Pentecostalism Affiliation | 1028 | + + + [...] + | Prashanth Vuong | ECON | [address] | | | | | [place] | | | | | [address] | | + + + + + Care Team Providers + +------+ + | Care Dental Chairside Assistant Name | Role | Phone | + +------+ + | Farooq Wesley DO | PCP | | + +------+ + Reason for Visit +---------+ + | Reason | Comments | +---------+ + | Fatigue | x 1 month | +---------+ + Encounter Details +--------+---------+ + + + | Date | Type | Department | Care Team | Description | +--------+---------+ + + + | 08/17/ | Office | [facility] | Farooq Wesley | Fatigue, unspecified | | 2019 | Visit | [facility] | E, DO [address] | type (Primary Dx); | | | | MED[facility] [address] | [place], [place] | Essential | | | [address] [place], | [address] | hypertension, | | | | [place] [address] | [phone] | benign; Controlled | | | | [phone] | | type 2 diabetes | | | | | | mellitus without | | | | | | complication, | | | | | | without long-term | | | | | | current use of | | | | | | insulin (HCC); Mixed | | | | | | hyperlipidemia; | | | | | | Nocturia | +--------+---------+ + + + Social History [...] + + + | Blood Pressure | 134/76 | 08/17/2018 8:42 AM | Med cuff, right arm, | | | | PDT | after 30 mins | | | | | resting | + + + + + | Pulse | 50 | 08/17/2018 8:12 AM | Reg | | | | PDT | | + + + + + | Temperature | 36.6 C (97.8 F) | 08/17/2018 8:12 AM | | | | | PDT | | + + + + + | Respiratory Rate | 15 | 08/17/2018 8:12 AM | | | | | PDT | | + + + + + | Oxygen Saturation | 99% | 08/17/2018 8:12 AM | RA | | | | PDT | | + + + + + | Inhaled Oxygen | - | - | | | Concentration | | | | + + + + + | Weight | 74.2 kg (163 lb 9.6 | 08/17/2018 8:12 AM | | | | oz) | PDT | | + + + + + | Height | 154.9 cm (5' 1") | 08/17/2018 8:12 AM | Stated | | | | PDT | | + + + + + | Body Mass Index | 30.91 | 08/17/2018 8:12 AM | | | | | PDT | | + + + + + documented in this encounter Patient Instructions Patient Instructions Brian Coronado - 08/17/2018 8:20 AM PDT-Go to lab today while fasting for blood work -Follow up to review blood work and DM foot examElectronically signed by Brian Coronado at 0 08/17/2018 8:44 AM PDT documented in this encounter Progress Notes Farooq Wesley DO - 08/17/2018 8:20 AM PDT Patient ID: Lita Vuong is a 78 y.o. year old female Chief Complaint Patient presents with Fatigue x 1 month Assessment: Fatigue, unspecified type (Primary) - CBC with Differential; Future; Expected date: 08/17/2018 - Comprehensive Metabolic Panel; Future; Expected date: 08/17/2018 - TSH; Future; Expected date: 08/17/2018 Essential hypertension, benign - Losartan Potassium-HCTZ; Take 1 tablet by mouth Daily. Dispense: 90 tablet; Refill: 3 Controlled type 2 diabetes mellitus without complication, without long-term current use of insulin ([facility]) - Hemoglobin A1C; Future; Expected date: 08/17/2018 - Microalbumin/Creatinine Ratio, Urine; Future; Expected date: 08/17/2018 Mixed hyperlipidemia - Lipid Panel; Future; Expected date: 08/17/2018 Nocturia - Urinalysis with Microscopic with Culture if Indicated; Future; Expected date: 019 Plan: -Go to lab today while fasting for blood work -Follow up 2 weeks to review blood work and DM foot exam Subjective: HARMAN London presents to the clinic today with fatigue. Starting in June, she would get so tired and exhausted, she would need to sit down for 15- 20 minuets and she would be good to go again. She didn't have any other symptoms. She checke d her blood pressure and blood sugars every time she has gotten exhausted and they both have been running good at home. Her blood sugars are running 110-140 and her blood pressure is r unning 112/68. Then the other night she had a chest pain mid sternum that radiates straight across, and her left arm went numb. Right now she can feel the top of her head, pain in the back of her left eye. She worries about strokes, she has a strong family history of strokes. She has increased stress in her life. She has had more visual migraines recently as well. She has been taking Losartan-HCTZ 100-25 mg half tablet daily for hypertension. Current Outpatient Medications Medication Sig Dispense Refill [...] TAKE ONE TABLET BY MOUTH RYLIE DAY (Patient taking differently: Take 0.5 tablets by mouth Daily.) 90 tablet 3 metoprolol succinate (TOPROL-XL) 25 [...] Respiratory: Negative for shortness of breath. Cardiovascular: Positive for chest pain. Negative for palpitations. Neurological: Positive for numbness (left arm). one episode when lying in bed. Objective: Vitals: BP 134/76 Comment: Med cuff, right arm, after 30 mins resting | Pulse 50 Comment: Reg | Tem p 36.6 C (97.8 F) (Oral) | Resp 15 | Ht 1.549 m (5' 1") Comment: Stated | Wt 74.2 kg ( 163 lb 9.6 oz) | LMP (LMP Unknown) | SpO2 99% Comment: RA | ? No | BMI 30.9 1 kg/m Physical Exam Constitutional: She is oriented to person, place, and time. She appears well-developed and well-nourished. HENT: Head: Atraumatic. Eyes: Pupils are equal, round, and reactive to light. EOM are normal. Neck: Carotid bruit is not present. Cardiovascular: Normal rate, regular rhythm and normal heart sounds. Pulmonary/Chest: Effort normal and breath sounds normal. Abdominal: Bowel sounds are normal. Musculoskeletal: Limited balance left leg No palmar drift Lymphadenopathy: She has no cervical adenopathy. Neurological: She is alert and oriented to person, place, and time. She has normal reflexes . She displays normal reflexes. No cranial nerve deficit. Coordination normal. Cranial nerves normal. Skin: Skin is warm and dry. Psychiatric: She has a normal mood and affect. Entered by Brian Coronado [facility], acting as scribe for Morris Wesley D.O. The documentation recorded by the scribe accurately reflects the service I personally perfo [facility] and the decisions made by me. documented [...] [place] | | | | | | [address] | | | | | | [phone] | | | | | | | | +--------+---------+ + + + documented as of this encounter Results Hemoglobin A1C (02/07/2019 10:13 AM PST) + + + + + + | Component | Value | Ref Range | Performed | Pathologist | | | | | At | Signature | + + + + + + | Hemoglobin | 6.1 | | REFERENCE | | | A1c | | | LAB | | | | | | [facility] | | | | | | [facility] | | + + + + + + | Estimated | 128Comment: | | REFERENCE | | | Average | Reference Range for | | LAB | | | Glucose | HEMOGLOBIN A1c: | | [facility] - | | | | Non-Diabetic | | BKR | | | | <5.7% | | [...] the | | | | | | [place] Diabetes | | | | | | [...] Testing Performed at: [facility] CLIA: [id number] - [address] | REFERENCE LAB | | [place] [address] | [facility] - | | | BKR | + + + + + + + + | Performing | Address | City/State/Zipcode | Phone Number | | Organization | | | | + + + + + | REFERENCE LAB | [address] | [place] | [phone] | | [facility] | | [address] | | + + + + + TSH (08/17/2018 8:53 AM PDT) + +-------+ + + + | Component | Value | Ref Range | Performed | Pathologist | | | | | At | Signature | + +-------+ + + + | TSH | 1.40 | 0.36 - 3.74 | [facility] | | | | | uIU/mL | [facility] | | | | | [facility] | | | | | | [facility] | | | | | | [facility] | | + +-------+ + + + + + | Specimen | + + | Blood | + + + + + + + | Performing | Address | City/State/Zipcode | Phone Number | | Organization | | | | + + + + + | [facility] | [address] | [place], [place] | [phone] | | [facility] | | [address] | | | [facility] | | | | + + + + + Lipid Panel (08/17/2018 8:53 AM PDT) + + + + + + | Component | Value | Ref Range | Performed | Pathologist | | | | | At | Signature | + + + + + + | Triglycerid | 80 | 30 - 200 mg/dL | [facility] | | | es | | | [facility] | | | | | | [facility] | | | | | | [facility] | | | | | | [facility]ENTER LAB | | + + + + + + | Cholesterol | 153 | 0 - 200 mg/dL | [facility] | | | | | | [facility] | | | | | | [facility] | | | | | | [facility] | | | | | | [facility] | | + + + + + + | HDL | 66 | >=40 mg/dL | [facility] | | | | | | [facility] | | | | | [facility] | | | | | | [facility] | | | | | | [facility]ENTER LAB | | + + + + + + | Chol/HDL | 2.3 | <=5.0 | [facility] | | | Ratio | | | [facility] | | | | | | [facility] | | | | | | [facility] | | | | | | [facility]ENTER [facility] | | + + + + + + | LDL, | 71Comment: LDL reference | <130 mg/dL | [facility] | | | Calculated | range: < 100 | | [facility] | | | | mg/dL [id number] - | | [facility]OS[facility] | | | | 129 mg/dL Near | | REGIONAL | | | | [id number] - 159 mg/dL | | MEDICAL | | | | [id number] - 189 | | CENTER LAB | | | | mg/dL High | | | | | | > 190 mg/dL Very | | | | | | High | | | | + + + [...] + + + + + | [facility] | [address] | [place] | [phone] | | [facility] | | [address] | | | [facility] | | | | + + + + + CBC with Differential (08/17/2018 8:53 AM PDT) + + + + + + | Component | Value | Ref Range | Performed | Pathologist | | | | | At | Signature | + + + + + + | WBC | 5.7 | 4.3 - 10.4 K/uL | [facility] | | | | | | [facility] | | | | | [facility] | | | | | | [facility] | | | | | | [facility] | | + + + + + + | RBC | 3.71 (L) | 4.12 - 5.30 | [facility] | | | | | M/uL | [facility] | | | | | | [facility] | | | | | | [facility] | | | | | | [facility] | | + + + + + + | Hemoglobin | 12.8 | 12.4 - 15.7 | [facility] | | | | | g/dL | [facility] | | | | | | [facility] | | | | | | [facility] | | | | | | [facility] | | + + + + + + | Hematocrit | 36.6 (L) | 37.7 - 47.0 % | [facility] | | | | | | [facility] | | | | | | [facility] | | | | | | [facility] | | | | | | [facility] | | + + + + + + | MCV | 98.6 (H) | 82.0 - 97.0 fL | [facility] | | | | | | [facility] | | | | | | [facility] | | | | | | [facility] | | | | | | [facility] | | + + + + + + | MCH | 34.5 (H) | 27.1 - 32.3 pg | [facility] | | | | | | [facility] | | | | | [facility] | | | | | | [facility] | | | | | | [facility] | | + + + + + + | MCHC | 35.0 | 32.0 - 36.9 | [facility] | | | | | g/dL | [facility] | | | | | | [facility] | | | | | | [facility] | | | | | | [facility] | | + + + + + + | RDW-CV | 13.3 | 0.0 - 17.0 % | [facility] | | | | | | [facility] | | | | | | [facility] | | | | | | [facility] | | | | | | [facility] | | + + + + + + | Platelet | 336 | 150 - 450 K/uL | [facility] | | | Count | | | [facility] | | | | | | [facility] | | | | | | [facility] | | | | | | [facility] | | + + + + + + | MPV | 7.7 (L) | 9.4 - 12.3 fL | [facility] | | | | | | [facility] | | | | | | [facility] | | | | | | [facility] | | | | | | [facility] | | + + + + + + | % | 58.9 | 42.0 - 76.0 % | [facility] | | | Neutrophils | | | [facility] | | | | | | [facility] | | | | | | [facility] | | | | | | [facility] | | + + + + + + | % | 29.3 | 20.0 - 40.0 % | [facility] | | | Lymphocytes | | | [facility] | | | | | | [facility] | | | | | | [facility] | | | | | | [facility] | | + + + + + + | % Monocytes | 10.7 | 3.0 - 13.0 % | [facility] | | | | | | [facility] | | | | | | [facility] | | | | | | [facility] | | | | | | [facility] | | + + + + + + | % | 1.0 | 0.0 - 7.0 % | [facility] | | | Eosinophils | | | [facility] | | | | | | [facility] | | | | | | [facility] | | | | | | [facility] | | + + + + + + | % Basophils | 0.1 | 0.0 - 2.0 % | [facility] | | | | | | [facility] | | | | | | [facility] | | | | | | [facility] | | | | | | [facility] | | + + + + + + | Absolute | 3.40 | 2.50 - 8.50 | [facility] | | | Neutrophils | | K/uL | [facility] | | | | | | [facility] | | | | | | [facility] | | | | | | [facility] | | + + + + + + | Absolute | 1.70 | 1.00 - 3.80 | [facility] | | | Lymphocytes | | K/uL | [facility] | | | | | | [facility] | | | | | | [facility] | | | | | | [facility] | | + + + + + + | Absolute | 0.60 | 0.00 - 0.80 | [facility] | | | Monocytes | | K/uL | [facility] | | | | | | [facility] | | | | | | [facility] | | | | | | [facility] | | + + + + + + | Absolute | 0.10 | 0.00 - 0.70 | [facility] | | | Eosinophils | | K/uL | [facility] | | | | | | [facility] | | | | | | [facility] | | | | | | [facility]ENTER LAB | | + + + + + + | Absolute | 0.00 | 0.00 - 0.20 | [facility] | | | Basophils | | K/uL | [facility] | | | | | [...] + + | [facility] | [address] | [place], [place] | [phone] | | [facility] | | [address] | | | [facility] | | | | + + + + + documented in this encounter Visit Diagnoses + + | Diagnosis | + + | Fatigue, unspecified type - Primary | + + | Essential hypertension, benign | + + | Controlled type 2 diabetes mellitus without complication, without long-term current | | use of insulin (HCC) | + + | Mixed hyperlipidemia | + + | Nocturia | + + documented in this encounter
--- OUTSIDE RECORDS SUMMARY | ~2019-09-21 | XMS | Encounter Summary ---
Demographics + + + | Address | [address] | | | [place] [address] | + + + | Home Phone | | + + + | Preferred Language | Unknown | + + + | Marital Status | | + + + | Anglican Affiliation | 1028 | + + + | Race | Unknown | + + + | Ethnic Group | Unknown | + + + Author + + + | Author | [facility] | | | and [place] | + + + | Organization | [facility] | | | and [place] | + + + | Address | Unknown | + + + | Phone | Unavailable | + + + Support + + + + + | Name | Relationship | Address | Phone | + + + + + | Prashanth Vuong | ECON | [address] | | | | | [place] | | | | | [address] | | + + + + + Care Team Providers + +------+ + | Care Russian History Professor Name | Role | Phone | + +------+ + | Farooq Wesley DO | PCP | | + +------+ + Reason for Visit + +--------+ + | Reason | Onset | Comments | | | Date | | + +--------+ + | Medication Refill | 03/01/ | | | | 2017 | | + +--------+ + Encounter Details +--------+--------+ + + + | Date | Type | Department | Care Team | Description | +--------+--------+ + + + | 03/01/ | Refill | [facility] | Maria G Burgess, CC | Medication Refill | | 2017 | | [facility] | [facility] | | | | | [facility] [address] | | | | | | [address] [facility], | | | | | | [place] [address] | | | | | | [phone] | | | +--------+--------+ + + + [...] Telephone Encounter - Maria G Burgess [facility] - 03/01/2018 9:43 AM PSTLAST OFFICE VISIT , last TSH unknown. RICHARD Hunter CMA documented in this encounter Plan of Treatment +--------+---------+ + + + | Date | Type | Specialty | Care Team | Description | +--------+---------+ + + + | 10/04/ | Office | Primary Care | Farooq Wesley | | | 2019 | Visit | | DO [facility] [address] | | | | | | [place] | | | | | | [address] | | | | | | [phone] | | | | | | | | +--------+---------+ + + + documented as of this encounter Visit Diagnoses Not on filedocumented in this encounter"
--- OUTSIDE RECORDS SUMMARY | ~2019-09-21 | XMS | Encounter Summary ---
Demographics + + + | Address | [address] | | | [place] [address] | + + + | Home Phone [...] + | Prashanth Vuong | ECON | [address] | | | | | [place] | | | | | [address] | | + + + + + Care Team Providers + +------+ + | Care Mutual Fund Sales Agent Name | Role | Phone | [...] | DO [address] | [address], | | | | | [address] | [address] | [address] | | | | | ring | [place], [place] | [place], | | | | | | [address] | [place] [address] | | | | | | Phone: | Phone: | | | | | | [phone] | [phone] | | | | | | Fax: | Fax: | | | | | | [phone] | [phone] | +--------+ + + + + + [...] | | 2018 | Visit | [facility] | E, DO [address] | (Primary Dx); | | | | [facility] [address] | [place], [place] | [place] [address]; | | | [address] [place], | [address] | Chest pain, | | | | [place] [address] | [phone] | unspecified type; | | | | [phone] | | Trochanteric | | | | [...] in this encounter Progress Notes Maria G Burgess, CC MANAGER INTERMEDIATE - 03/10/2018 3:00 PM Edilia Meseret Vuong presents today with ief Complaint of: Seen in ED for possible [...] protocol: POCT Urinalysis. Verbal Report given to: Farooq Wesley DO. RICHARD Hunter CMA Farooq Johnson DO - 03/10/2018 3:00 PM PST Patient ID: Lita Vuong is a 77 y.o. year old female Chief Complaint: Chief Complaint Patient presents with Hospital Follow-up Seen in ED for possible heart attack pt reports seen 1.5 weeks ago and its esophagus acti ng up. "Esophageal spams" Assessment Esophageal dysphagia (Primary) - AMB REFERRAL TO [facility] Schatzki's ring - AMB REFERRAL TO [facility] Chest pain, unspecified type - Nitroglycerin; Place 1 tablet under the tongue every 5 minutes as needed. Dispense: 25 tablet; Refill: 11 Trochanteric bursitis of left hip - Lidocaine HCl; 4 mLs by Other route once. - Triamcinolone Acetonide; Inject 1 mL into the articular space once. Plan -Use Nitroglycerin as directed when needed -We will contact [facility] regarding stress test -Referral to Dr. Kaiser in [place] 30 minute visit with > 50% time [...] sweaty or clammy. Then she went to [facility] ER. When she got to the [...] last one was 12/08/2017 in the greater tro of left hip. The pain has recently came back. PARQ Sterile technique No complications and tolerated well. 1.0cc (40mg/1ml) TAC [facility] [address]-2 LOT [id number] EXP 04/11 and 4.0cc 1% lidocaine [facility] 85789-048-20 LOT [id number] EXP 06/10 injected into Left great troch [...] Procedure: EGD; Surgeon: Silvano Kaiser MD; Location: [facility] MEDICAL PROCEDURE UNIT UPPER GASTROINTESTINAL ENDOSCOPY N/A 02/03/2017 Procedure: EGD; Surgeon: Silvano Kaiser MD; Location: [facility] MEDICAL PROCEDURE UNIT Social History Social History [...] Hives and Swelling Cefazolin Hives and Rash Lolo Hives and Rash Review of Systems Constitutional: [...] Farooq Wesley DO. 03/10/2018 15:58Electronically signed by Farooq Wesley DO a t 03/10/2018 4:08 PM PSTdocumented in this [...] [place] | | | | | | [address] | | | | | | [phone] | | | | | | | | +--------+---------+ + + + + + +--------+ + + | Name | Type | Priori | Associated Diagnoses | Order Schedule | | | | ty | | | + + +--------+ + + | * [facility] [place] | Outpatient | Routin | Esophageal | Ordered: 03/10/2018 | | Gastroenterology - | Referral | e | dysphagia | | | AMB Referral | | | Lex's ring | | + + +--------+ + + documented as of this encounter Visit Diagnoses + + | Diagnosis | + + | Esophageal dysphagia - Primary Dysphagia, pharyngoesophageal phase | + + | Schatzki's ring Congenital tracheoesophageal fistula, esophageal atresia and [...] | Hip-Left | | mL, Other, ONCE, 03/10/18 at | | 18 3:57 | | [...] PST | | | | | ONCE, 03/10/18 at 1615, For 1 | | | | | | | dose, Shake well. Not for IV | | | | | | | use., | | | | | | + +-------+ +-------+---+ + +---+---+ | | | +---+---+ documented in this encounter
--- OUTSIDE RECORDS SUMMARY | ~2019-09-21 | XMS | Encounter Summary ---
Demographics + + + | Address | [address] | | | [place] [address] | + + + | Home Phone | | + + + | Preferred Language | Unknown | + + + | Marital Status | | + + + | Voodoo Affiliation | 1028 | + + + | Race | Unknown | + + + | Ethnic Group | Unknown | + + + Author + + + | Author | [facility] | | | and [place] | + + + | Organization | [facility] | | | and [place] | + + + | Address | Unknown | + + + | Phone | Unavailable | + + + Support + + + + + | Name | Relationship | Address | Phone | + + + + + | Prashanth Vuong | ECON | [address] | | | | | [place] | | | | | [address] | | + + + + + Care Team Providers + +------+ + | Care Chief Reservoir Engineering Name | Role | Phone | + +------+ + | Farooq Wesley DO | PCP | | + +------+ + Encounter Details +--------+ + + + + | Date | Type | Department | Care Team | Description | +--------+ + + + + | 03/05/ | Hospital | [facility] | Silvano Kaiser MD | Gastroesophageal | | 2016 | Encounter | [facility] | [address], [place] | reflux disease with | | | | [address] | [address] [place], [place] | esophagitis (Primary | | | | [place], [place] | [address] | Dx); Other | | | | [address] | | dysphagia | | | | [phone] | | | +--------+ + + + [...] | | | | | | | 1541-1597 MG-UNIT | | | | | | [...] endoscopy probable dilat ation of Schatzki's ring THaSilvano ervin MD - 03/04/2016 8:32 AM PST PRE-ENDOSCOPY HISTORY AND PRE-SEDATION ASSESSMENT PATIENT NAME: Lita Vuong : 1940 TODAY'S DATE: 03/05/2016 PLANNED [...] and Thursday Calcium Carbonate-Vit D-Min (CALCIUM 1200) 7120-9304 MG-UNIT CHEW Take 1 tablet by mouth [...] Hives and Swelling Cefazolin Hives and Rash [place] Extract Hives and Rash ASA CLASSIFICATION:2 EXAMINATION: [...] 1. Available medical records have been reviewed. [facility] 02/04/2016, p rioinocente procedure note 2. Medication list reviewed. IMPRESSION: [...] Electronically Signed by: Silvano Kaiser MD 03/05/2016 [facility] Portions of this chart may have been created with TipHive voice recognition software. Occasi onal wrong-word or [...] reflux disease, esophagitis presence not specified [K21.9]. Obgyn Hospitalist Physician visit is in response to an electronic [...] being able to swallow better. She is Alev[employer], attends [employer] in [place], [place], and is strong in her iain. [...] Endoscopy Patient: Lita Vuong : 1940 Acct: [id number] Exam Date: Saturday, March 05, 2016 Doctor: [...] may reach your physician at Work: Ext [phone]. If unable to reach your ronen patton, call [facility] Emergency Department at Ext. [phone] Your [...] Care | Farooq Wseley | | | 2020 | Visit | | E, DO [address] | | | | | | [place] | | | | | | [address] | | | | | | [phone] | | | | | | | [...] [address] | [place] | [phone] | | [facility] | | [address] | | | - LABORATORY | | | | + + + + + EGStarr (03/05/2016 10:42 AM PST) + + | Specimen | + + | | + + + + -+ | Narrative | Performed At | + + -+ | | [facility] | | GastroenterologyPatient Name: Lita VuongProbarb Date: | PROVATION | | 03/05/2016 10:42 AMMRN: [id number] #: [id number] of | | | : 1940dmit Type: AmbulatoryAge: Room: [facility] 01Gender: | | | FemaleNote Status: [...] the nurse | | | and the pbx technician in the endoscopy suite. Mental Status [...] Scope In: 11:03:43 AMScope Out: 11:12:37 AM [place] | | | [facility], [address] [place] [address] | | | [phone] | | | - Discharge patient to [...] |Scope Out: 11:12:37 AM | | | [facility], [address], [place], [place] | | | [address] | | + + -+ + +---------+ [...] (H) | 70 - 150 mg/dL | YUNI | | | POC | | | [...] [address] | [place] | [phone] | | [facility] | | [address] | | | - LABORATORY | | | | + + + + + Surgical Pathology Exam (03/05/2016 12:00 AM PST) + + | Specimen | + + | | + + + + + | Narrative | Performed At | + + + | SPECIMEN(S): A MID ESOPHAGEAL BIOPSY SPECIMEN SOURCE: [facility] | | ESOPHAGEAL BIOPSY CLINICAL [...] for increased epithelial eosinophils. | | | JVR:bhargav:C2NR GROSS DESCRIPTION: The specimen is labeled | [...] | | slide preparation were performed by [employer], [facility] [address] [place] | | | [address] [address] (Sqe: Anthony Turner, | | | Frn[place] CLIA#: [id number]). Professional interpretation was performed | | | by [employer], [facility], [address] | [address] [place] [address] (Sqe: Anthony Turner M.D.; CLIA#: [id number]). Diagnostician: Anthony Turner MD Pathologist Electronically Signed 03/06/2016 | [...] | | +-------+ +------+---+---+ | Given | 20 | 1 mg | | | | | 16 11:02 | | | | | | AM PST | | | | +-------+ +------+---+---+ +---+---+ | | | +---+---+ documented in this encounter
--- OUTSIDE RECORDS SUMMARY | ~2019-09-21 | XMS | Encounter Summary ---
Demographics + + + | Address | [address] | | | [place] [address] | + + + | Home Phone [...] + | Prashanth Vuong | ECON | [address] | | | | | [place] | | | | | [address] | | + + + + + Care Team Providers + +------+ + | Care Integrated Marketing Manager Name | Role | Phone | + +------+ + | Farooq Wesley DO | PCP | | + +------+ + Reason for Visit +--------+ + | Reason | Comments | +--------+ + | Apnea | | +--------+ + Encounter Details +--------+---------+ + + + | Date | Type | Department | Care Team | Description | +--------+---------+ + + + | 06/07/ | [facility] | [facility] | Oh Landrum PA | JOSSELINE on CPAP (Primary | | 2013 | Visit | SLEEP DISORDER [address] | [address] | Dx) | | | | [address] | [place] | | | | | [place] [address] | [address] | | | | | [phone] | | | +--------+---------+ + + + [...] + + + | Blood Pressure | 152/72 | 06/07/2013 1:54 PM | | | | | PDT | | + + + + + | Pulse | 58 | 06/07/2013 1:54 PM | | | | | PDT | | + + + + + | Temperature | - | - | | + + + + + | Respiratory Rate | 14 | 06/07/2013 1:54 PM | | | | | PDT | | + + + + + | Oxygen Saturation | 98% | 06/07/2013 1:54 PM | | | | | PDT | | + + + + + | Inhaled Oxygen | - | - | | | Concentration | | | | + + + + + | Weight | 83.2 kg (183 lb 6.4 | 06/07/2013 1:54 PM | | | | oz) | PDT | | + + + + + | Height | - | - | | + + + + + | Body Mass Index | 34.09 | 09/20/2012 3:36 PM | | | | | PDT | | + + + + + documented in this encounter Progress Notes Oh Landrum PA - 06/07/2013 1:42 PM PDT Subjective: Patient ID: Lita Vuong is a 73 y.o. female. HPI last office visit was: 06/09/2012 date of polysomnography: 11/14/2005 AHI: 17.5 O2%: 87% Machine type: ResMed S9 with nasal mask obtained from: [facility] [place] pressure is: 5-10 cm 95%: 6.6 cm Maximum: 6.8 cm Nights used: 65/365 Average usage (all nights): 0:30 Average usage (nights used): 2:49 AHI: 0.3 Lita comes in for CPAP compliance. Her download shows that she has not been wearing her CPAP very often during the last year. However, she says she is wearing it on most nights an d is even taking it with her when traveling. She says she is wearing it on most nights, but is taking it off during the night without knowing it on many nights. She has slept without it on many nights recently because of her being in the hospital. I believe she is wearing her CPAP more than her download shows, but less often than she thinks. I have discussed the download and results of the paperwork in detail. She is unchanged or improved in nearly all categories, with no areas of concern. The download shows that her sl eep apnea is well controlled, with an AHI of 0.3. It also shows that her leaks are well con trolled. Review of Systems Objective: Physical Exam Assessment: Problem # 1: OBSTRUCTIVE SLEEP APNEA (ICD-327.23) This controlled with CPAP. She has not been wearing her CPAP regularly for a variety of re asons. Plan: She is to continue with CPAP indefinitely. She is to return to wearing her CPAP 100% of t he time she is asleep. I will follow up again in 4 months, sooner prn. Fifteen minutes were spent [id number], w ith the majority of time spent in counseling. Oh Landrum PA-C cc: Morris Wesley MD Krystyna Tyson, Master of Arts - 06/07/2013 1:36 PM PDTFormatting of this note might be different from the origina l. 06/07/13 1300 [place] Depression Inventory-II Depression Score 6 - Minimal depression Insomnia Severity Index Insomnia Severity Index 13 [place] Sleepiness Scale Sitting and reading 2 Watching TV 0 Sitting, inactive in a public place (e.g. a theatre or a meeting) 0 As a passenger in a car for an hour without a break 1 Lying down to rest in the afternoon when circumstances permit 0 Sitting and talking to someone 0 Sitting quietly after a lunch without alcohol 0 In a car, while stopped for a few minutes in traffic 0 Total score 3 SF-36v2 Score PF 52.82 RP 56.85 BP 51.13 GH 55.32 VT 48.97 SF 40.49 RE 55.88 MH 41.56 PCS 56.07 MCS 43.96 documented in this enc ounter Miscellaneous Notes Miscellaneous - ONBASE SCAN [facility] - 06/08/2013 12:00 AM PDT iscellaneous - ONBASE SCAN [facility] - 06/07/2013 12:00 AM PDTEle ctronically signed by Yoseph De at 06/08/2013 12:43 PM PDTdocumented in this encounter Plan of [...] [place] | | | | | | [address] | | | | | | [phone] | | | | | | | | +--------+---------+ + + + documented as of this encounter Visit Diagnoses + + | Diagnosis | + + | JOSSELINE on CPAP - Primary Obstructive sleep apnea (adult) (pediatric) | + + documented in this encounter"
--- OUTSIDE RECORDS SUMMARY | ~2019-09-21 | XMS | Encounter Summary ---
Demographics + + + | Address | [address] | | | [place] [address] | + + + | Home Phone | | + + + | Preferred Language | Unknown | + + + | Marital Status | | + + + | Jainism Affiliation | [id number] | + + + | Race | Unknown | + + + | Ethnic Group | Unknown | + + + Author + + + | Author | [facility] | | | and [place] | + + + | Organization | [facility] | | | and [place] | + + + | Address | Unknown | + + + | Phone | Unavailable | + + + Support + + + + + | Name | Relationship | Address | Phone | + + + + + | Prashanth Vuong | ECON | [address] | | | | | [place] | | | | | [address] | | + + + + + Care Team Providers + +------+ + | Care Sugar Cane Grower Name | Role | Phone | + +------+ + | Farooq Wesley DO | PCP | | + +------+ + Reason for Referral Evaluate & Treat (Routine) + + + + + + + | Status | Reason | Specialty | Diagnoses / | Referred By | Referred To | | | | | Procedures | Contact | Contact | + + + + + + + | Authorized | Specialty | Cardiology | Diagnoses | Maryjane, | Juan, | | | Services | | Symptomatic | Farooq Rose, | Fahad Thorpe MD | | | Required | | bradycardia | DO [address] | [address] | | | | | | [place] | [place] | | | | | | [address] | [place], [place] | | | | | | Phone: | [phone] Phone: | | | | | | [phone] | [phone] | | | | | | Fax: | Fax: | | | | | | [phone] | [phone] | + + + + + + + Reason for Visit + + + | Reason | Comments | + + + | Injections | left hip injection | + + + Encounter Details +--------+---------+ + + + | Date | Type | Department | Care Team | Description | +--------+---------+ + + + | 06/13/ | Office | [facility] | Farooq Wesley | Trochanteric | | 2019 | Visit | [facility] | E, DO [address] | bursitis of left hip | | | | [facility] | [place], [place] | (Primary Dx); | | | [address] [place], | [address] | Arthritis of | | | | [place] [address] | [phone] | carpometacarpal | | | | [phone] | | (CMC) joint of left | | | | | | thumb; Symptomatic | | | | | | bradycardia; Asthma, | | | | | | unspecified asthma | | | | | | severity, | | | | | | unspecified whether | | | | | | complicated, | | | | | | unspecified whether | | | | | | persistent; | | | | | | Essential | | | | | | hypertension, | | | | | | benign; Major | | | | | | depressive disorder, | | | | | | remission status | | | | | | unspecified, | | | | | | unspecified whether | | | | | | recurrent | +--------+---------+ + + + Social History [...] + + + | Blood Pressure | 139/70 | 06/14/2019 4:52 PM | | | | | PDT | | + + + + + | Pulse | 72 | 06/14/2019 3:50 AM | R | | | | PDT | | + + + + + | Temperature | 36.2 C (97.2 F) | 06/14/2019 3:50 AM | | | | | PDT | | + + + + + | Respiratory Rate | 16 | 06/14/2019 3:50 AM | | | | | PDT | | + + + + + | Oxygen Saturation | 96% | 06/14/2019 3:50 AM | bernie DELGADO | | | | PDT | nails | + + + + + | Inhaled Oxygen | - | - | | | Concentration | | | | + + + + + | Weight | 69.9 kg (154 lb) | 06/14/2019 3:50 AM | | | | | PDT | | + + + + + | Height | 155 cm (5' 1.02") | 06/14/2019 3:50 AM | | | | | PDT | | + + + + + | Body Mass Index | 29.08 | 06/14/2019 3:50 AM | | | | | PDT | | + + + + + documented in this encounter Progress Notes Farooq Wesley DO - 06/14/2019 4:00 PM PDTAssociated Order(s): Joint Inj/Asp; Joint I nj/Asp Patient ID: Lita Vuong is a 79 y.o. year old female Chief Complaint: Chief Complaint Patient presents with Injections left hip injection Assessment 1. Trochanteric bursitis of left hip - Joint Inj/Asp - lidocaine 1% injection 2.5 mL - triamcinolone acetonide (KENALOG-40) 40 mg/mL injection 20 mg - Joint injection procedure 2. Arthritis of carpometacarpal (CMC) joint of left thumb - Joint Inj/Asp - lidocaine 1% injection 1 mL - triamcinolone acetonide (KENALOG-40) 40 mg/mL injection 20 mg - Joint injection procedure 3. Symptomatic bradycardia - Cardiology, External - AMB Referral 4. Asthma, unspecified asthma severity, unspecified whether complicated, unspecified whethe r persistent - albuterol (VENTOLIN HFA) 90 mcg/puff inhaler; Inhale 2 puffs into the lungs every 6 hours as needed for Wheezing. Dispense: 8 g; Refill: 6 5. Essential hypertension, benign - hydroCHLOROthiazide (HYDRODIURIL) 12.5 MG tablet; Take 12.5 mg by mouth Daily. - losartan (COZAAR) 50 mg tablet; Take 50 mg by mouth Daily. 6. Major depressive disorder, remission status unspecified, unspecified whether recurrent - amitriptyline (ELAVIL) 10 mg tablet; Take 10 mg by mouth nightly. Plan: - Patient was administered left hip and left thumb steroid injections in clinic today. - Her BP measured 171/78 today. On second reading it measured 160/69. On third reading it m easured 139/70 after 20 min of rest. - Refills sent to pharmacy for hydrochlorothiazide, amitriptyline, and albuterol inhaler. - Follow up prn. Procedure note: Discussed PARQ of steroid injections Sterile technique Left hip was injected with 2.5 cc lidocaine and 20 mg triamcinolone. No complications and patient tolerated the procedure well. Procedure note: Discussed PARQ of steroid injections Sterile technique Left metacarpal joint was injected with 1 cc lidocaine and 20 mg triamcinolone. No complications and patient tolerated the procedure well. Subjective: HPI: Patient presents to the clinic for left-sided hip injection. Patient presents today with left-sided hip pain. She reports having two injections in the p ast and would like another today. She also reports left-sided hand pain around her thumb. She has a history of hypertension and reports today that her at home readings have been pineda und 120/60. She also reports having some dizziness. Current Outpatient Medications Medication Sig Dispense Refill [...] 1 hour before bed). 30 tablet 0 amitriptyline (ELAVIL) 10 mg tablet Take 10 mg by mouth nightly. aspirin 81 MG tablet Take 81 mg by mouth nightly. Cholecalciferol (VITAMIN D-3) 2000 units CAPS Take 2,000 Units by mouth Daily. EPINEPHrine (EPIPEN 2-HOLLEY) 0.3 mg/0.3 mL injection Inject 0.3 mg into the muscle as nee ded. esomeprazole (NEXIUM 24HR) 20 mg capsule Take 20 mg by mouth every morning (before eliud kfast). hydroCHLOROthiazide (HYDRODIURIL) 12.5 MG tablet Take 12.5 mg by mouth Daily. losartan (COZAAR) 50 mg tablet Take 50 mg by mouth Daily. Multiple Vitamins-Minerals (MULTIVITAMIN PO) Take 1 tablet by mouth Daily. nitroglycerin (NITROSTAT) 0.[address] 1 tablet under the tongue every 5 misty maliha as needed. (Patient not taking: Reported on 06/14/2019) 25 tablet 11 non-formulary medication External CBD oil SYNTHROID 75 MCG tablet TAKE ONE TABLET BY MOUTH EVERY DAY 90 tablet 3 No current facility-administered medications for this visit. [...] Schatzki's ring Change in bowel habits Nocturia Asthma Family History Problem Relation Age of Onset Other (see comment) Mother osteoporosis Cancer Paternal Grandmother "stomach" Diabetes Paternal Grandmother Breast cancer Maternal Aunt Diabetes Paternal Grandfather Past Surgical History: Procedure Laterality Date BREAST REDUCTION SURGERY 1993 bilateral CATARACT REMOVAL 08/2016 COLONOSCOPY 10/25/12 COLONOSCOPY N/A 04/23/2018 Procedure: COLONOSCOPY; Surgeon: Silvano Kaiser MD; Location: [facility] ESOPHAGEAL DILATATION 2012 Dr. Kaiser HYSTERECTOMY THYROID SURGERY hemithyroidectomy - right TOTAL KNEE ARTHROPLASTY May, right, partial UPPER GASTROINTESTINAL ENDOSCOPY 10/25/12 next due 10/2013 UPPER GASTROINTESTINAL ENDOSCOPY N/A 03/05/2016 Procedure: EGD; Surgeon: Silvano Kaiser MD; Location: [facility] UPPER GASTROINTESTINAL ENDOSCOPY N/A 02/03/2017 Procedure: EGD; Surgeon: Silvano Kaiser MD; Location: [facility] UPPER GASTROINTESTINAL ENDOSCOPY N/A 04/23/2018 Procedure: EGD; Surgeon: Silvano Kaiser MD; Location: [facility] Social History Socioeconomic History Marital status: Spouse name: Prashanth Number of children: 4 Years of education: Not on file Highest education level: Not on file Occupational History Occupation: Retired Social Needs Financial resource strain: Not on [...] file Gets together: Not on file Attends protestant service: Not on file Active member of club or organization: Not on file Attends meetings of clubs or organizations: Not on file Relationship status: Not on file Intimate partner violence: Fear of current or ex partner: No Emotionally abused: No Physically abused: No Forced sexual activity: No Other Topics Concern Not on file Social [...] Hives and Swelling Cefazolin Hives and Rash Wayside Hives and Rash Review of Systems Musculoskeletal: Positive for arthralgias. Neurological: Positive for dizziness. Objective: Vitals: BP 139/70 | Pulse 72 Comment: R | Temp 36.2 C (97.2 F) (Temporal) | Resp 16 | Ht 1.5 5 m (5' 1.02") | Wt 69.9 kg (154 lb) | LMP (LMP Unknown) | SpO2 96% Comment: RA, with ac rylic nails | No | BMI 29.08 kg/m Physical Exam Constitutional: She is oriented [...] motion. Neck supple. No thyromegaly present. Cardiovascular: Regular rhythm, normal heart sounds and intact distal pulses. Bradycardia p resent. Pulmonary/Chest: Effort normal and breath sounds normal. Abdominal: Soft. Bowel sounds are normal. Musculoskeletal: Left hip: She exhibits tenderness. Left hand: She exhibits tenderness. Comments: - Pain with palpation over left greater trochanter. - Left MC joint tender on palpation. Neurological: She is alert and oriented to person, place, and time. She has normal reflexes . Psychiatric: She has a normal mood and affect. Her behavior is normal. Judgment and thought content normal. Joint Inj/Asp Date/Time: 06/14/2019 4:31 PM Performed by: Farooq Wesley DO Authorized by: Farooq Wesley DO Body area: hip Joint: left hip Local anesthesia used: no Anesthesia: Local anesthesia used: no Sedation: Patient sedated: no Triamcinolone amount: 20 mg Lidocaine 1% amount: 2.5 mL Patient tolerance: Patient tolerated the procedure well with no immediate complications Joint Inj/Asp Date/Time: 06/14/2019 4:33 PM Performed by: Farooq Wesley DO Authorized by: Farooq Wesley DO Body area: finger Location details: left thumb Local anesthesia used: no Anesthesia: Local anesthesia used: no Sedation: Patient sedated: no Triamcinolone amount: 20 mg Lidocaine 1% amount: 1 mL Patient tolerance: Patient tolerated the procedure well with no immediate complications This documentation prepared by [place] medical record librarians teacher. All aspects of this chart r eviewed for accuracy and content by Farooq Wesley DO at the date and time of service. Electronically signed by: Dr. Farooq Wesley DO 06/14/2019 4:55 PM documented in this encounter Plan of [...] [place] | | | | | | [address] | | | | | | [phone] | | | | | | | | +--------+---------+ + + + + + +--------+ + + | Name | Type | Priori | Associated Diagnoses | Order Schedule | | | | ty | | | + + +--------+ + + | Joint injection | Procedures | Routin | Arthritis of | Ordered: 06/14/2019 | | procedure | | e | carpometacarpal | | | | | | (CMC) joint of left | | | | | | thumb | | + + +--------+ + + | Joint injection | Procedures | Routin | Trochanteric | Ordered: 06/14/2019 | | procedure | | e | bursitis of left hip | | + + +--------+ + + + + +--------+ + + | Name | Type | Priori | Associated Diagnoses | Order Schedule | | | | ty | | | + + +--------+ + + | Cardiology, External | Outpatient | Routin | Symptomatic | Ordered: 06/14/2019 | | - AMB Referral | Referral | e | bradycardia | | + + +--------+ + + documented as of this encounter Procedures + +--------+ + + + | Procedure Name | Priori | Date/Time | Associated Diagnosis | Comments | | | ty | | | | + +--------+ + + + | CT ARTHROCENTESIS | Routin | 06/14/2019 | Arthritis of | Results for this | | ASPIR&/INJ SMALL | e | 4:00 PM | carpometacarpal | procedure are in the | | JT/BURSA W/O US | | PDT | ([facility]) joint of left | results section. | | | | | thumb | | + +--------+ + + + | CT ARTHROCENTESIS | Routin | 06/14/2019 | Trochanteric | Results for this | | ASPIR&/INJ MAJOR | e | 4:00 PM | bursitis of left hip | procedure are in the | | JT/BURSA W/O US | | PDT | | results section. | + +--------+ + + + documented in this encounter Results Joint Inj/Asp (06/14/2019 4:00 PM PDT) + + + | Narrative | Performed At | + + + | Farooq Wesley DO 06/14/2019 5:29 PM Joint Inj/Asp | | | Date/Time: 06/14/2019 4:33 PM Performed by: Farooq Wesley DO | | | Authorized by: Farooq Wesley DO Body area: finger Location | | | details: left thumb Local anesthesia used: no Anesthesia: Local | | | anesthesia used: no Sedation: Patient sedated: no | | | Triamcinolone amount: 20 mg Lidocaine 1% amount: 1 mL Patient | | | tolerance: Patient tolerated the procedure well with no immediate | | | complications | | + + + Joint Inj/Asp (06/14/2019 4:00 PM PDT) + + + | Narrative | Performed At | + + + | Farooq Wesley DO 06/14/2019 5:29 PM Joint Inj/Asp | | | Date/Time: 06/14/2019 4:31 PM Performed by: Farooq Wesley DO | | | Authorized by: Farooq Wesley DO Body area: hip Joint: left hip | | | Local anesthesia used: no Anesthesia: Local anesthesia used: no | | | Sedation: Patient sedated: no Triamcinolone amount: 20 mg | | | Lidocaine 1% amount: 2.5 mL Patient tolerance: Patient tolerated the | | | procedure well with no immediate complications | | + + + documented in this encounter Visit Diagnoses + + | Diagnosis | + + | Trochanteric bursitis of left hip - Primary Enthesopathy of hip region | + + | Arthritis of carpometacarpal (CMC) joint of left thumb | + + | Symptomatic bradycardia Other specified cardiac dysrhythmias | + + | Asthma, unspecified asthma severity, unspecified whether complicated, unspecified | | whether persistent | + + | Essential hypertension, benign | + + | Major depressive disorder, remission status unspecified, unspecified whether recurrent | + + documented in this encounter Administered Medications + +--------+ +------+------+------+ | Medication Order | MAR | Action | Dose | Rate | Site | | | Action | Date | | | | + +--------+ +------+------+------+ | lidocaine 1% injection 1 mL 1 | Given | 06/14/19 | 1 mL | | | | mL, Other, ONCE, 06/14/19 at | | 20 5:18 | | | | | 1745, For 1 dose, | | PM PDT | | | | | Intra-articular, | | | | | | + +--------+ +------+------+------+ +---+---+ | | | +---+---+ + +-------+ +---------+---+---+ | lidocaine 1% injection 2.5 mL | Given | 06/14/19 | 2.5 mLs | | | | 2.5 mL, Other, ONCE, 06/14/19 | | 20 5:19 | | | | | at 1745, For 1 dose, | | PM PDT | | | | | Intra-articular, | | | | | | + +-------+ +---------+---+---+ +---+---+ | | | +---+---+ + +-------+ +-------+---+---+ | triamcinolone acetonide | Given | 06/14/19 | 20 mg | | | | (KENALOG-40) 40 mg/mL injection | | 20 5:19 | | | | | 20 mg 20 mg, Intra-articular, | | PM PDT | | | | | ONCE, 06/14/19 at 1745, For 1 | | | | | | | dose, Shake well. Not for IV | | | | | | | use., | | | | | | + +-------+ +-------+---+---+ +---+---+ | | | +---+---+ + +-------+ +-------+---+---+ | triamcinolone acetonide | Given | 06/14/19 | 20 mg | | | | (KENALOG-40) 40 mg/mL injection | | 20 5:20 | | | | | 20 mg 20 mg, Intra-articular, | | PM PDT | | | | | ONCE, Ousmane 06/14/19 at 1745, For 1 | | | | | | | dose, Shake well. Not for IV | | | | | | | use., | | | | | | + +-------+ +-------+---+---+ +---+---+ | | | +---+---+ documented in this encounter
--- OUTSIDE RECORDS SUMMARY | ~2019-09-21 | XMS | Encounter Summary ---
Demographics + + + | Address | [address] | | | [place] [address] | + + + | Home Phone | | + + + | Preferred Language | Unknown | + + + | Marital Status | Single | + + + | Caodaism Affiliation | Unknown | + + + [...] Team Providers + +------+ + | Care Seismograph Operator Name | Role | Phone | + +------+ + | No Pcp Per Patient | PCP | Unavailable | + +------+ + Reason for Visit +--------+ + | Reason | Comments | +--------+ + | Other | genny | +--------+ + Encounter Details +--------+ + + + + | Date | Type | Department | Care Team | Description | +--------+ + + + + | 01/08/ | Telephone | [facility] | Melba Banks MD | Other (genny) | | 2005 | | [facility] | | | | | | [address] | | | [address] | | | | | | [place], [address] [place] [address] | | | | | | [place], [place] | | | | | | [address] | | | | | | [phone] | | | +--------+ + + + [...]
--- OUTSIDE RECORDS SUMMARY | ~2019-09-21 | XMS | Encounter Summary ---
Demographics + + + | Address | [address] | | | [place] [address] | + + + | Home Phone [...] + | Prashanth Vuong | ECON | [address] | | | | | [place] | | | | | [address] | | + + + + + Care Team Providers + +------+ + | Care Mainframe Systems Engineer Name | Role | Phone | + +------+ + | Farooq Wesley DO | PCP | | + +------+ + Reason for Referral Diagnostic/Screening (Routine) +--------+--------+ + + + + | Status | Reason | Specialty | Diagnoses / | Referred By | Referred To | | | | | Procedures | Contact | Contact | +--------+--------+ + + + + | Closed | | Radiology | Diagnoses | Goran, | | | | | | Dizziness | Genny, | | | | | | after | [employer]ATOR [address] | | | | | | extension of | [address] | | | | | | neck | [address] | | | | | | Procedures | [place], | | | | | | VAS Carotid | [place] [address] | | | | | | Duplex | Phone: | | | | | | Bilateral | [phone] | | | | | | | Fax: | | | | | | | [phone] | | +--------+--------+ + + + + Reason for Visit + + + | Reason | Comments | + + + | Follow-up | 3 month | + + + Encounter Details +--------+---------+ + + + | Date | Type | Department | Care Team | Description | +--------+---------+ + + + | 09/18/ | Office | [facility] | [place], | Dizziness after | | 2020 | Visit | CARDIOLOGY [place] | MYNOR [address] | extension of neck | | | | [address] | [address] | (Primary Dx) | | | | [facility] [place] | [place] | | | | | [address] | [address] | | | | | [phone] | | | +--------+---------+ + + + [...] in this encounter Patient Instructions Patient Instructions Genny Zimmer ARNP - 09/19/2019 10:30 AM PDTYOUR MONITOR LOOKS G OOD- HEART RATE NOT THE CULPRIT FOR YOUR SYMPTOMS YOU CAN TRIAL MOVING THE LOSARTAN TO BEDTIME MAY BE RELATED TO YOUR CERVICAL SPINEElectronically signed by MYNOR Gamboa at 10:25 AM PDT documented in this encounter Progress Notes Genny Zimmer ARNP - 09/19/2019 10:30 AM PDTFormatting of this note might be differen t from the original. Date of visit: 09/19/2019 Primary Care Physician: Farooq Wesley DO CHIEF COMPLAINT: Chief Complaint Patient presents with Follow-up 3 month HISTORY OF PRESENT ILLNESS: Lita Vuong is a 79 y.o. presents today for test results. She was seen prior in [facility] [place] with Dr. Martinez on 06/21/2019: Mrs. Vuong, accompanied by her daughter, came to the office today for a cardiology evalu ation. She complains of dizziness, which has been present intermittently, but essentially o n a daily basis, for the last 5-6 months. It is somewhat orthostatic, but mostly occurs wit h head movements, either looking up or looking down. This suggests more benign positional v ertigo, but she has had heart rates as low as the 40s, more often in the 50s, and has had a few episodes that she describes as feeling "heavy, all over, like my legs are not going to hold me" several times in the past few months while standing, has to sit down floor, as she thinks she is going to pass out otherwise, and they resolve fairly quickly afterwards. This could clearly be due to bradycardia. A 30-day event monitor will be done. She had a Amaury r monitor in August, at [facility] that showed sinus bradycardia, with heart ra maliha as low as 43 and an average rate of 54 bpm. I will see her back afterwards for further evaluation. She will have routine lab work done as well, with a CBC, CMP and TSH, as she do es not think that this has been checked for at least 2 years. Today she presents alone for test results. She correlates her dizziness with looking up or down, and has been having more scintillation type headaches. She denies any orthostatic sy mptoms. She has a history of cervical spinal fusion. REVIEW OF SYSTEMS: Negative except for pertinent items noted in HPI. Review of Systems Constitutional: Negative for fatigue. HENT: Negative for nosebleeds. Eyes: Negative for visual disturbance. Respiratory: Negative for cough and shortness of breath. Cardiovascular: Negative for chest pain, palpitations and leg swelling. Gastrointestinal: Negative for nausea, vomiting, abdominal pain and blood in stool. Genitourinary: Negative for hematuria. Musculoskeletal: Negative for myalgias, back pain and arthralgias. Skin: Negative for color change. Neurological: positive for dizziness, denies syncope and numbness. Hematological: Does not bruise/bleed easily. Psychiatric/Behavioral: The patient is not nervous/anxious. Outpatient Medications Prior to Visit Medication Sig Dispense Refill ACCU-CHEK [place] PLUS strip Check blood sugars 1-2 times a day 100 each 6 albuterol (VENTOLIN HFA) 90 mcg/puff inhaler Inhale 2 puffs into the lungs every 6 hour s as needed for Wheezing. 8 g 6 ALPRAZolam (XANAX) 0.25 mg tablet Take 1 [...] eliud kfast). hydroCHLOROthiazide (HYDRODIURIL) 12.5 MG tablet TAKE ONE TABLET BY MOUTH EVERY DAY 90 tablet 3 losartan (COZAAR) 50 mg tablet Take 50 mg by mouth Daily. Multiple Vitamins-Minerals (MULTIVITAMIN PO) Take 1 tablet by mouth Daily. nitroglycerin (NITROSTAT) 0.[address] 1 tablet under the tongue every 5 misty maliha as needed. 25 tablet 11 non-formulary medication External CBD oil SYNTHROID 75 MCG tablet TAKE ONE TABLET BY MOUTH EVERY DAY 90 tablet 3 No facility-administered medications prior to visit. PHYSICAL EXAM: Vitals: 09/19/19 1012 BP: 138/68 Pulse: 58 Temp: 36.4 C (97.6 F) SpO2: 99% Weight: 68.8 kg (151 lb 9.6 oz) Height: 1.549 m (5' 1") Constitutional: Well-developed. Neck: No JVD present. No thyromegaly present. Cardiovascular: Regular rhythm, S1 normal and S2 normal. No murmur heard. Pulses: Radial pulses are 2+ on the right side, and 2+ on the left side. Pulmonary/Chest: Effort normal and breath sounds normal. No wheezes. No rales. Abdominal: Soft. No tenderness. Musculoskeletal: No edema. Neurological: Alert. No cranial nerve deficit. Skin: Warm and dry. DATA: Blood tests: Lab Results Component Value Date WBC 5.7 08/17/2018 HGB 12.8 08/17/2018 HCT 36.6 (L) 08/17/2018 PLT 336 08/17/2018 No results found for: INR, PTT Lab Results Component Value Date NA 137 08/17/2018 K 4.1 08/17/2018 CL 101 08/17/2018 CO2 28 08/17/2018 BUN 21 08/17/2018 CREA 1.13 08/17/2018 GLUCOSE 117 (H) 01/19/2018 AST 25 08/17/2018 ALT 29 08/17/2018 TSH 1.40 08/17/2018 Lab Results Component Value Date CHOL 153 08/17/2018 TRIG 80 08/17/2018 HDL 66 08/17/2018 LDL 71 08/17/2018 TSH 1.40 08/17/2018 EK06/21/2019 sinus cora HR 48 OTHERS: Attestation signed by Fahad Martinez MD at 08/12/19 [id number] A cardiac rhythm analysis was performed on 2 leads for 29 days, 21 hours, 4 minutes, corres ponding to greater than 2.5 million beats. During the monitored time period, 93.2% of the to jonathan recording yielded tracings that were capable of being analyzed, which showed the followi ng: The predominant rhythm was sinus, with an average heart rate of 62 bpm, ranging from 42-99 bpm. A normal circadian rhythm was seen. Sinus bradycardia was present for 37.54% of the re cording, with heart rates < 50 bpm present for 2% the recording. There was no evidence of atrioventricular block, and no clinically significant pauses were noted. The overall ventricular ectopy burden was less than 0.01%. There were 3 isolated PVCs. The re were no complex ventricular arrhythmias noted. The overall atrial ectopic rhythm burden was 0.04%. There were 750 isolated PACs. There we re 45 atrial couplets and 23 atrial triplets. There were 30 runs of paroxysmal atrial tachyc ardia during the monitored time period, the maximum duration of which was 29 consecutive tatum ts, at a rate of 93 bpm. The maximum recorded heart rate during any of these runs was a 5 be at run at 119 bpm. There were 6 PACs in the setting of atrial bigeminy. There was no evidence of PSVT, paroxysmal atrial fibrillation or atrial flutter during the monitored time period. 18 episodes of symptoms were reported during the monitored time period, including 12 episod es of dizziness", 3 episodes of "fatigue", and 3 "other" (not otherwise specified), all jackie esponding to normal sinus rhythm (16 of the 18) or mild sinus bradycardia (2 of the 18). No significant ST segment abnormalities were noted. There were T wave inversions in one of the leads throughout most of the recording. CONCLUSION: This is an unremarkable 30-day event monitor recording, with sinus rhythm thro ughout, and brief runs of PAT, but no clinically significant arrhythmias. The 18 episodes o f reported symptoms all corresponded to normal sinus rhythm with mild sinus bradycardia. Plan ASSESSMENT & PLAN: Lita Vuong is a 79 y.o. female with the following medical condition: 1. Dizziness, does not correlate with any arrhythmia on monitor 2. Sinus cora, with average heart rate of 62 bpm 3. Fatigue Symptoms do not appear cardiac in nature. More likely cervical spine etiology Follow up as needed for new or worsening symptoms. No orders of the defined types were placed in this encounter. The following portions of the patient's history were reviewed and updated as appropriate: Allergies, current medications. Family history, past medical history, past social history, past surgical history. Problem list. MYNOR Gamboa 09/19/2019 doblaynemen natalie in this encounter Miscellaneous Notes Addendum Note - Genny Zimmer ARNP - 09/19/2019 10:30 AM PDT Addended by: Ruperto ZIMMER I on: 09/19/2019 10:50 AM Modules accepted: Orders documented in this encounter Plan of Treatment +--------+---------+ + + + | Date | Type | Specialty | Care Team | Description | +--------+---------+ + + + | 10/04/ | Office | Primary Care | Farooq Wesley | | 2019 | Visit | | E, [address] | | | | | | [place] | | | | | | [address] | | | | | | [phone] | | | | | | | | +--------+---------+ + + + + +---------+--------+ + + | Name | Type | Priori | Associated Diagnoses | Order Schedule | | | | ty | | | + +---------+--------+ + + | VAS Carotid Duplex | Imaging | Routin | Dizziness after | Expected: | | Bilateral | | e | extension of neck | 09/19/2019, Expires: | | | | | | 09/18/2020 | + +---------+--------+ + + documented as of this encounter Visit Diagnoses + + | Diagnosis | + + | Dizziness after extension of neck - Primary | + + documented in this encounter
--- OUTSIDE RECORDS SUMMARY | ~2019-09-21 | XMS | Encounter Summary ---
Demographics + + + | Address | [address] | | | [place] [address] | + + + | Home Phone [...] + | Prashanth Vuong | ECON | [address] | | | | | [place] | | | | | [address] | | + + + + + Care Team Providers + +------+ + | Care Emission Specialist Name | Role | Phone | [...] Closed | | Radiology | Diagnoses | Maryjane, | Cc Wgr Xray | | | | | Vision loss | Farooq Milton, | [address] | | | | | of left eye | DO [address] | [address] | | | | | Procedures | [address] | [place], [place] | | | | | MRI Brain | [place], [place] | [address] | | | | | w wo | [address] | Phone: | | | | | Contrast | Phone: | [phone] | | | | | | [phone] | Fax: | | | | | | Fax: | [phone] | | | | | | [phone] | | +--------+--------+ + + + + Reason for Visit + + + | Reason | Comments | + + + | GI Problem | Pt states since July 2017 after getting a virus she has not had | | | regular bowel movements. Either constipation or diarrhea, denies | | | incontinence. | + + + | Eye Problem | Seen by Dr. Siddiqui for her eyes due to possible cataract of LEFT | | | eye. Pt states eyes are normal and Dr. Siddiqui recommened an MRI | | | and nuerology consult. Pt reports sharp pains in LEFT cheondoism x1 | | | month. | + + + | Hypertension | Update provider on BP readings | + + + Encounter Details +--------+---------+ + + + | Date | Type | Department | Care Team | Description | +--------+---------+ + + + | 01/12/ | Office | [facility] [facility] | [facility] | Visual field defect | | 2018 | Visit | [facility] | E, DO [address] | nasal step, left | | | | [facility] | [place], [place] | (Primary Dx); Vision | | | | [address] [place], | [address] | loss of left eye; | | | | [place] [address] | [phone] | Constipation, | | | | [phone] | | unspecified | | | | | | constipation type; | | | | | | Diarrhea, | | | | | | unspecified type | +--------+---------+ + + + Social History [...] + + + | Blood Pressure | 122/70 | 01/12/2018 4:23 PM | | | | | PDT | | + + + + + | Pulse | 55 | 01/12/2018 4:23 PM | | | | | PDT | | + + + + + | Temperature | 36.7 C (98.1 F) | 01/12/2018 4:23 PM | | | | | PDT | | + + + + + | Respiratory Rate | 17 | 01/12/2018 4:23 PM | | | | | PDT | | + + + + + | Oxygen Saturation | 99% | 01/12/2018 4:23 PM | | | | | PDT | | + + + + + | Inhaled Oxygen | - | - | | | Concentration | | | | + + + + + | Weight | 74.9 kg (165 lb 3.2 | 01/12/2018 4:23 PM | | | | oz) | PDT | | + + + + + | Height | 153.7 cm (5' 0.5") | 01/12/2018 4:23 PM | | | | | PDT | | + + + + + | Body Mass Index | 31.73 | 01/12/2018 4:23 PM | | | | | PDT | | + + + + + documented in this encounter Progress Notes Maria G Burgess CC CMA - 01/12/2018 4:30 PM Deeapk Vuong presents today with ief Complaint of: Pt states since July 2017 after getting a virus she has not had regular bow el movements. Either constipation or diarrhea, denies incontinence. Seen by Dr. Siddiqui for her eyes due to possible cataract of LEFT eye. Pt states eyes are normal and Dr. Siddiqui rec ommened an MRI and nuerology consult. Pt reports sharp pains in LEFT cheondoism x1 month. Upda te provider on BP readings. Current medications verified with her at time of visit. Pt currently shows no s/s of distress, shortness of breath. Vital signs: BP 122/70 | Pulse 55 | Temp 36.7 C (98.1 F) (Oral) | Resp 17 | Ht 1.53 7 m (5' 0.5") | Wt 74.9 kg (165 lb 3.2 oz) | SpO2 99% | BMI 31.73 kg/m Labs Obtained per protocol: None. Verbal Report given to: Farooq Wesley DO. RICHARD Hunter CMA Brian Stauffer - 1 4:30 PM PDT Patient ID: Lita Vuong is a 77 y.o. year old female Chief Complaint: Chief Complaint Patient presents with GI Problem Pt states since July 2017 after getting a virus she has not had regular bowel movements. Either constipation or diarrhea, denies incontinence. Eye Problem Seen by Dr. Siddiqui for her eyes due to possible cataract of LEFT eye. Pt states eyes are normal and Dr. Siddiqui recommened an MRI and nuerology consult. Pt reports sharp pains in L EFT cheondoism x1 month. Hypertension Update provider on BP readings Assessment Visual field defect nasal step, left (Primary) Vision loss of left eye - MRI Brain w wo Contrast; Future; Expected date: 01/12/2018 Constipation, unspecified constipation type Diarrhea, unspecified type Plan -Referral order for MRI of brain sent to [facility] in [place], if you do not hear anythi ng call me -Go to [facility] for Xray, Await report for constipation plan -Continue current medications -Do not change diet until we talk 40 minute visit with > 50% time spent in counseling. Subjective: HARMAN London presents to the clinic today to discuss irregular bowel movements, and recent eye ex am finding of cataract and recommendation of MRI and Neurology consult for pain to left temp le, and hypertension. She went to the eye doctor in [place]. She was having trouble with her left eye. The vis ion was blurry, and the eye was tired. She was getting shooting pain on the left cheondoism. She was unable to see finger counting with the left eye. They completed a vision field test and she was not able to see with the left eye. She was recommended to get an MRI done. The visi on change started about 1 month ago. She has not hit her head, fallen down. She is loosing weight with the Adkin diet. Since June she has diarrhea or constipation. Her last colonoscopy was 3-4 years ago. She h as tried Miralax daily but will take 2-3 days to work, but then she will have diarrhea. When she has hard stools they are hard to pass, small in shape. She may have a lower abdominal p ain. Current Outpatient Prescriptions Medication Sig Dispense Refill [...] TAKE ONE TABLET BY MOUTH RYLIE DAY tablet 3 metoprolol succinate (TOPROL-XL) 25 mg [...] Procedure: EGD; Surgeon: Silvano Kaiser MD; Location: [facility] UPPER GASTROINTESTINAL ENDOSCOPY N/A 02/03/2017 Procedure: EGD; Surgeon: Silvano Kaiser MD; Location: [facility] Social History Social [...] Hives and Swelling Cefazolin Hives and Rash Ararat Hives and Rash Review of Systems Constitutional: Negative for fatigue and fever. Eyes: Positive for visual disturbance (loss of vision left eye). Respiratory: Negative for cough, chest tightness, shortness of breath and wheezing. Cardiovascular: Negative for chest pain and palpitations. Gastrointestinal: Positive for abdominal pain, constipation and diarrhea. Negative for naus ea and vomiting. Musculoskeletal: Negative for gait problem and myalgias. Neurological: Negative for dizziness, syncope and headaches. Psychiatric/Behavioral: The patient is not nervous/anxious. Objective: Vitals: BP 122/70 | Pulse 55 | Temp 36.7 C (98.1 F) (Oral) | Resp 17 | Ht 1.537 m (5' 0.5") | Wt 74.9 kg (165 lb 3.2 oz) | SpO2 99% | BMI 31.73 kg/m Physical Exam Constitutional: She appears well-developed and well-nourished. HENT: Head: Atraumatic. Eyes: Pupils are equal, round, and reactive to light. EOM are normal. Cardiovascular: Normal rate, regular rhythm and normal heart sounds. Pulmonary/Chest: Effort normal and breath sounds normal. Lymphadenopathy: She has no cervical adenopathy. Neurological: She is alert. No cranial nerve deficit. Psychiatric: She has a normal mood and affect. Entered by Brian Coronado, acting as scribe for Dr. Maryjane DO. The documentation recorded by the scribe accurately reflects the service I personally perfo ed and the decisions made by me. Dr. Farooq Wesley DO. 01/12/2018 16:50Electronically signed by DO diomedes Forbes 01/14/2018 7:31 AM PDTdocumented in this encounter Plan of [...] [place] | | | | | | [address] | | | | | | [phone] | | | | | | | | +--------+---------+ + + + + +---------+--------+ + + | Name | Type | Priori | Associated Diagnoses | Order Schedule | | | | ty | | | + +---------+--------+ + + | MRI Brain w wo | Imaging | Routin | Vision loss of | Expected: | | Contrast | | e | left eye | 01/12/2018, Expires: | | | | | | 01/12/2019 | + +---------+--------+ + + documented as of this encounter Procedures + +--------+ + + + | Procedure Name | Priori | Date/Time | Associated Diagnosis | Comments | | | ty | | | | + +--------+ + + + | LABS - EXTERNAL SCAN | | 02/02/2018 | | Results for this | | | | 12:00 AM | | procedure are in the | | | | PST | | results section. | + +--------+ + + + documented in this encounter Results LABS - EXTERNAL SCAN (02/02/2018 12:00 AM PST) + + + | Narrative | Performed At | + + + | Ordered by an | | | unspecified provider. | | + + + XR Abdomen AP (01/12/2018 5:28 PM PDT) [...] + + | Performing | Address | City/[facility] | Phone Number | | Organization | | | | + +---------+ + + | [facility] | | | | + +---------+ + + documented in this encounter Visit Diagnoses + + | Diagnosis | + + | Visual field defect nasal step, left - Primary | + + | Vision loss of left eye Unqualified visual loss, one eye | + + | Constipation, unspecified constipation type | + + | Diarrhea, unspecified type | + + documented in this encounter
--- OUTSIDE RECORDS SUMMARY | ~2019-09-21 | XMS | Encounter Summary ---
Demographics + + + | Address | [address] | | | [place] [address] | + + + | Home Phone [...] + | Prashanth Vuong | ECON | [address] | | | | | [place] | | | | | [address] | | + + + + + Care Team Providers + +------+ + | Care Chemical Engineering Intern Name | Role | Phone | [...] +--------+---------+ + + + | 03/05/ | Office | [facility] | Oh Landrum PA | JOSSELINE on CPAP (Primary | | 2011 | Visit | SLEEP DISORDER [address] | [address] | Dx) | | | | [address] | [place] | | | | | [place] [address] | [id number] | | | | | [phone] | | | +--------+---------+ + + + [...] + | Blood Pressure | 152/72 | 03/05/2012 10:52 AM | | | | | PST | | + + + + + | Pulse | 54 | 03/05/2012 10:52 AM | | | | | PST | | + + + + + | Temperature | - | - | | + + + + + | Respiratory Rate | 14 | 03/05/2012 10:52 AM | | | | | PST | | + + + + + | Oxygen Saturation | - | - | | + + + + + | Inhaled Oxygen | - | - | | | Concentration | | | | + + + + + | Weight | 84.4 kg (186 lb 1.6 | 03/05/2012 10:52 AM | | | | oz) | PST | | + + + + + | Height | - | - | | + + + + + | Body Mass Index | 35.75 | 11/05/2009 12:00 AM | | | | | PDT | | + + + + + documented in this encounter Progress Notes Oh Landrum PA - 03/05/2012 10:56 AM PST Subjective: Patient ID: Lita Vuong is a 71 y.o. female. HPI last office visit was: 03/03/2011 date of polysomnography: 11/14/2005 AHI: 17.5 O2%: 87% Machine type: ResMed S9 with nasal mask obtained from: [facility] in [place] pressure is: 5-10 cm 95%: 7.0 cm Maximum: 7.6 cm CPAP download shows CPAP useage # nights: 172/245 263/319 Average usage (all nights): 4.8 3:46 Average usage (nights used): 4:35 Lita has been taking off her mask during the night without knowing it. This started happ ening on occasion about ten months ago, but has been happening nearly every night during the last 1-2 months. She thinks this may be a result of her thyroid surgery in September of this ye ar and her recent sinus problems. This has not been a problem for her during the previous s ix years. This is very frustrating for her because she feels much more rested when she wear s it for the duration of her sleep. She wore it for less than two hours last night and is v ashlyn tired today. We discussed the fact that we sleep in ninety minute sleep cycles throughout the night. We briefly wake up after each of these cycles, but it is usually a subconscious period. We di scussed the fact that CPAP or other changes in environment can disrupt these cycles and caus e it to be a conscious wakeup. As the CPAP becomes more familiar, it returns to being a sub conscious wakeup. I have discussed the download in detail. This shows that her leaks are well controlled. I t also shows that her apnea is well controlled, with an AHI of 0.6. She is now using a ResM ed S9 (replaced her Boyer and Paykel). She is very happy with this change, because she is able to have increased humidity without raising the temperature. Review of Systems Objective: Physical Exam Assessment: Problem # 1: OBSTRUCTIVE SLEEP APNEA (ICD-327.23) This controlled with CPAP. She is wearing her CPAP on a nightly basis, but has been taking it off during the night without knowing on most nights during the last few months. Plan: She is to continue with CPAP indefinitely. I have recommended that she put her mask back o n if she realizes that she has taken it off, have her wake her to put it back on if he notices that she has taken it off and read or work on a crossword puzzle for thirty minut es per night while wearing her CPAP. I will follow up again in 2 months, sooner prn. Thirty minutes were spent kein-qb-scgp, wi th the majority of time spent in counseling. Oh Landrum PA-C cc: Morris Wesley MD Krystyna Schuler - 2011 10:45 AM PST 03/05/12 1000 Bucio Depression Inventory-II Depression Score 11 Insomnia Severity Index Insomnia Severity Index 19 Lincoln Sleepiness Scale Sitting and reading 2 Watching [...] score 3 SF-36v2 Score PF 52.82 RP 51.96 BP 46.06 GH 50.55 VT 42.72 SF 56.85 RE 28.67 MH 41.56 PCS 5647 MCS 36.25 documented in this enc ounter Miscellaneous Notes Miscellaneous - ONBASE SCAN [facility] - 03/05/2012 12:00 AM PSTElectronically signed by [facility] at 03/09/2012 7:56 AM PSTMiscellaneous - ONBASE SCAN [facility] - 03/05/2012 12:00 AM PSTEle ctronically signed by [facility] at 03/09/2012 7:56 AM PSTdocumented in this encounter Plan of [...] [place] | | | | | | [address] | | | | | | [phone] | | | | | | | | +--------+---------+ + + + documented as of this encounter Visit Diagnoses + + | Diagnosis | + + | JOSSELINE on CPAP - Primary Obstructive sleep apnea (adult) (pediatric) | + + documented in this encounter"
--- OUTSIDE RECORDS SUMMARY | ~2019-09-21 | XMS | Encounter Summary ---
Demographics + + + | Address | [address] | | | [place] [address] | + + + | Home Phone [...] + | Prashanth Vuong | ECON | [address] | | | | | [place] | | | | | [address] | | + + + + + Care Team Providers + +------+ + | Care Cs Associate Name | Role | Phone | [...] Description | +--------+--------+ + + + | 03/29/ | Refill | [facility] | Farooq Wesley | Medication Refill | | 2019 | | [facility] | E, DO [address] | | | | | MEDICAL CL[facility] | [place], [place] | | | | | [address] [place], | [address] | | | | | [place] [address] | [phone] | | | | | [phone] | | | +--------+--------+ + + + [...] encounter Miscellaneous Notes Telephone Encounter - Adina Kerns, CC SAMPLE GRINDER - 03/29/2019 11:57 AM PST Last TSH was normal 07/2018 Patient was last seen on Recent Visits 02/24/2019 Controlled type 2 diabetes mellitus without complication, without long-term cur rent use of insulin (HCC) [facility] Farooq Wesley DO Office Visit 12/23/2018 Dog bite of hand, right, initial encounter [facility], [facility] Office Visit 10/13/2018 Diabetes mellitus without complication ([facility]) [facility] Office Visit RICHARD Bolivar CMA documented in [...] [place] | | | | | | [address] | | | | | | [phone] | | | | | | | | +--------+---------+ + + + documented as of this encounter Visit Diagnoses Not on filedocumented in this encounter"
--- OUTSIDE RECORDS SUMMARY | ~2019-09-21 | XMS | Encounter Summary ---
Demographics + + + | Address | [address] | | | [place] [address] | + + + | Home Phone | | + + + | Preferred Language | Unknown | + + + | Marital Status | | + + + | Alevism Affiliation | 1028 | + + + | Race | Unknown | + + + | Ethnic Group | Unknown | + + + Author + + + | Author | [facility] | | | and [place] | + + + | Organization | [facility] | | | and [place] | + + + | Address | Unknown | + + + | Phone | Unavailable | + + + Support + + + + + | Name | Relationship | Address | Phone | + + + + + | Prashanth Vuong | ECON | [address] | | | | | [place] | | | | | [address] | | + + + + + Care Team Providers + +------+ + | Care Hot Kettle Tender Name | Role | Phone | + +------+ + | Farooq Wesley DO | PCP | | + +------+ + Reason for Visit + +--------+ + | Reason | Onset | Comments | | | Date | | + +--------+ + | Results, Imaging | 01/15/ | | | | 2017 | | + +--------+ + Encounter Details +--------+ + + + + | Date | Type | Department | Care Team | Description | +--------+ + + + + | 01/15/ | Telephone | [facility] | Farooq Wesley | Results, Imaging | | 2018 | | [facility] | E, DO [address] | | | | | MEDICAL CLIN[address] | [place], [place] | | | | | [address] [place], | [address] | | | | | [place] [address] | [phone] | | | | | [phone] | | | +--------+ + + + [...] - Maria G Burgess CC CMA - 01/15/2018 4:06 PM PDTPt informed as listed . RICHARD Hunter CMA elephone Encoungeneva Wilson Aditya, Maria G ThorpeRICHARD CMA - 01/15/2018 4:06 PM PDTFormatting of this note might be differe nt from the original. Farooq Wesley, DO You 1 hour ago (14:15) Use Miralax 17 GM om 8 oz fluid daily. If hard pebble stool, use glycerin suppository. (Routing comment elephone Encoungeneva r Steve Burgess Maria G ThorpeRICHARD CMA - 01/15/2018 1:39 PM PDTPt states she has used Colace and Metamu cil without relief. Please advise she has had no bowel movement x3 days and has had some cr amping today. Passing lots of gas. Please advise. RICHARD Hunter CMA elephone EncounBraydon Delacruz - 01/15/2018 1:33 PM PDTPt RYC, please call and advise. Thanks, Braydon Bender P DTTelephone Encounter - Aditya Maria G RICHARD Thorpe CMA - 01/15/2018 1:31 PM PDTLeft message request ing call back. RICHARD Hunter CMA elephone Uzma Zamudio - 01/15/2018 10:25 AM PDTPt is returning your call Please call pt Pt states she has not received a call to schedule MRI Kiet Gusman elephone Nicola strickland - Maria G uBrgess CC CMA - 01/15/2018 10:11 AM PDTLeft detailed message. Asked patient to call us if she notices GI upset or bowel changes/constipation. Maria G M. Aditya, CC CMAEle ctronically signed by RICHARD Rojas HOT WATER HEATER INSTALLER at 01/15/2018 10:12 AM PDTTelephone Encounter - Farooq Wesley DO - 01/15/2018 7:13 AM PDTLet Lita know the xray does show stool as we discussed. elep lyndon Encounter - Farooq Wesley DO - 01/15/2018 7:13 AM PDT----- Message from Biran Coronado sent at 01/15/2018 7:10 PDT ----- Regarding: abd xray You are requesting to reach out to this patient regarding her recent abdomin xray. documented in this encounter Plan of Treatment +--------+---------+ + + + | Date | Type | Specialty | Care Team | Description | +--------+---------+ + + + | 10/04/ | Office | Primary Care | Farooq Wesley | | | 2019 | Visit | | [place] | | | | | | [place] | | | | | | [address] | | | | | | [phone] | | | | | | | | +--------+---------+ + + + documented as of this encounter Visit Diagnoses Not on filedocumented in this encounter"
--- OUTSIDE RECORDS SUMMARY | ~2019-09-21 | XMS | Encounter Summary ---
Demographics + + + | Address | [address] | | | [place] [address] | + + + | Home Phone | | + + + | Preferred Language | Unknown | + + + | Marital Status | | + + + | Advent Affiliation | 1028 | + + + | Race | Unknown | + + + | Ethnic Group | Unknown | + + + Author + + + | Author | [facility] | | | and [place] | + + + | Organization | [facility] | | | and [place] | + + + | Address | Unknown | + + + | Phone | Unavailable | + + + Support + + + + + | Name | Relationship | Address | Phone | + + + + + | Prashanth Vuong | ECON | [address] | | | | | [place] | | | | | [address] | | + + + + + Care Team Providers + +------+ + | Care Pediatric Speech Therapist Name | Role | Phone | + +------+ + | Farooq Wesley DO | PCP | | + +------+ + Encounter Details +--------+---------+ + + + | Date | Type | Department | Care Team | Description | +--------+---------+ + + + | 02/03/ | Surgery | [facility] | Silvano Kaiser MD | EGD | | 2017 | | MED CTR MP INTRA OP | [address], [place] | | | | | [address] | [address] [place], [place] | | | | | [place], [place] | [address] | | | | | [address] | | | | | | [phone] | | | +--------+---------+ + + + [...] + + + | Blood Pressure | 154/67 | 02/03/2017 10:35 AM | | | [...] + | Respiratory Rate | 16 | 02/03/2017 10:17 AM | | | [...] history of Schatzki's ring dilated to 54 Latvian TTS technique , previous dilatation in 2012. [...] Procedure: EGD; Surgeon: Silvano Kaiser MD; Location: [facility] MEDICAL PROCEDURE UNIT HOME MEDS: Prior to Admission medications Medication Sig Taking? ACCU-CHEK BROOK[place]N PLUS strip aspirin 81 MG tablet Take 81 mg by mouth nightly. Calcium Carbonate-Vit D-Min (CALCIUM 1200) 4677-4448 MG-UNIT CHEW Take 1 tablet by mouth Da ktaina. cyclobenzaprine (FLEXERIL) 5 MG tablet Take 5 [...] Hives and Swelling Cefazolin Hives and Rash Lawson Hives and Rash ASA CLASSIFICATION:3 EXAMINATION: Blood [...] Prior procedure note as listed above [facility] 12/18/2016 2. Medication list reviewed. IMPRESSION: dysphagia [...] Electronically Signed by: Silvano Kaiser MD 02/03/2017 [facility] Portions of this chart may have been created with Njuice voice recognition software. Occasi onal wrong-word or [...] Both rings wer e dilated to 60 Latvian via TTS technique with disruption of both [...] Endoscopy Patient: Lita Vuong : 1940 Acct: [id number] Exam Date: Friday, February 03, 2017 Doctor: [...] If unable to reach your physician, call [facility] Emergency Department at Ext. [address] Your [...] [place] | | | | | | [address] | | | | | | [phone] | | | | | | | [...] + | [address] | [address] | [place], [place] | [phone] | | [facility] | | [address] | | | - LABORATORY | | | | + + + + + EGD (02/03/2017 9:42 AM PST) + + | Specimen | + + | | + + + + -+ | Narrative | Performed At | + + -+ | | [facility] | | GastroenterologyPatient Name: Lita VuongProcedcorine Date: | PROVATION | | 02/03/2017 9:42 AMMRN: [id number] #: [id number] of : | | | 1Admit Type: AmbulatoryAge: 76Room: [facility] 01Gender: FemaleNote | | | Status: FinalizedAttending MD: [facility]ano Kaiser [facility] | | | Upper GI endoscopyIndications: Esophageal | | | dysphagiaProviders: Silvano Kaiser MD, Rosi Perez RN, | | | Amie Fraser, Consultant Dietitian, Dash | | | MD Danelle (Anesthesia [...] | | | the anesthesiologist and the compounding technician in the endoscopy suite. | | [...] | | 10:05:09 AMScope Out: 10:11:26 AM [facility] | | | [place], [address] [place] [address] | | | - Discharge patient to [...] |Scope Out: 10:11:26 AM | | | [facility], [address], [place] | | | [address] | | + + -+ + +---------+ + + | Performing | Address | City/State/[facility] Cent[facility]ode | Phone Number | | Organization | [...] + | [facility] | [address] | [place] | [phone] | | [facility] | | [address] | | | - LABORATORY | | [...]
--- OUTSIDE RECORDS SUMMARY | ~2019-09-21 | XMS | Encounter Summary ---
Demographics + + + | Address | [address] | | | [place] [address] | + + + | Home Phone | | + + + | Preferred Language | Unknown | + + + | Marital Status | | + + + | Lutheran Affiliation | 1028 | + + + | Race | Unknown | + + + | Ethnic Group | Unknown | + + + Author + + + | Author | [facility] | | | and [place] | + + + | Organization | [facility] | | | and [place] | + + + | Address | Unknown | + + + | Phone | Unavailable | + + + Support + + + + + | Name | Relationship | Address | Phone | + + + + + | Prashanth Vuong | ECON | [address] | | | | | [place] | | | | | [address] | | + + + + + Care Team Providers + +------+ + | Care Drafter Automotive Design Layout Name | Role | Phone | + +------+ + PCP | Unavailable | + +------+ + Encounter Details +--------+ + + + + | Date | Type | Department | Care Team | Description | +--------+ + + + + | 01/16/ | Hospital | [facility] | Silvano Kaiser MD | | | 1997 | Encounter | MED CTR GENERIC OP | [address], [place] | | | | | CONV DEPT [address] | [address] [place], [place] | | | | | [address] [place], | [address] | | | | | [place] [address] | | | | | | [phone] | | | +--------+ + + + [...] [place] | | | | | | [address] | | | | | | [phone] | | | | | | | | +--------+---------+ + + + documented as of this encounter Visit Diagnoses Not on filedocumented in this encounter"
--- OUTSIDE RECORDS SUMMARY | ~2019-09-21 | XMS | Encounter Summary ---
Demographics + + + | Address | [address] | | | [place] [address] | + + + | Home Phone | | + + + | Preferred Language | Unknown | + + + | Marital Status | | + + + | Yarsani Affiliation | 1028 | + + + | Race | Unknown | + + + | Ethnic Group | Unknown | + + + Author + + + | Author | [facility] | | | and [place] | + + + | Organization | [facility] | | | and [place] | + + + | Address | Unknown | + + + | Phone | Unavailable | + + + Support + + + + + | Name | Relationship | Address | Phone | + + + + + | Prashanth Vuong | ECON | [address] | | | | | [place] | | | | | [address] | | + + + + + Care Team Providers + +------+ + | Care Manufacturing Quality Engineer Name | Role | Phone | + +------+ + PCP | Unavailable | + +------+ + Encounter Details +--------+ + + + + | Date | Type | Department | Care Team | Description | +--------+ + + + + | 12/02/ | Abstract | [place] [facility] | [facility] | | | 2011 | | Conversion Location | SR | | | | | [address] | | | | | | [place], [place] | | | | | | [address] | | | | | | [phone] | | | +--------+ + + + [...] [place] | | | | | | [address] | | | | | | [phone] | | | | | | | | +--------+---------+ + + + documented as of this encounter Visit Diagnoses Not on filedocumented in this encounter
--- OUTSIDE RECORDS SUMMARY | ~2019-09-21 | XMS | Encounter Summary ---
Demographics + + + | Address | [address] | | | [place] [address] | + + + | Home Phone | | + + + | Preferred Language | Unknown | + + + | Marital Status | | + + + | Scientology Affiliation | 1028 | + + + [...] + | Prashanth Vuong | ECON | [address] | | | | | [place] | | | | | [address] | | + + + + + Care Team Providers + +------+ + | Care Engineer Conductor Name | Role | Phone | + [...] 2016 | | GASTROENTEROLOGY | [address], [place] | | | | | [address] [place] | [address] [place], [place] | | | | | [address] [place], [place] | [address] | | | | | [address] | | | | | | [phone] | | | +--------+ + + + [...] [place] | | | | | | [address] | | | | | | [phone] | | | | | | | | +--------+---------+ + + + documented as of this encounter Visit Diagnoses Not on filedocumented in this encounter
--- OUTSIDE RECORDS SUMMARY | ~2019-09-21 | XMS | Encounter Summary ---
Demographics + + + | Address | [address] | | | [place] [address] | + + + | Home Phone [...] + | Prashanth Vuong | ECON | [address] | | | | | [place] | | | | | [address] | | + + + + + Care Team Providers + +------+ + | Care Patient Support Associate Name | Role | Phone | + +------+ + | Farooq Wesley DO | PCP | | + +------+ + Reason for Visit + +--------+ + | Reason | Onset | Comments | | | Date | | + +--------+ + | Lab Results | 01/19/ | | | | 2017 | | + +--------+ + Encounter Details +--------+ + + + + | Date | Type | Department | Care Team | Description | +--------+ + + + + | 01/19/ | Telephone | [facility] | Farooq Wesley | Lab Results | | 2018 | | [facility] | E, DO [address] | | | | | MEDICAL CL[address] | [place], [place] | | | | | [address] [place], | [address] | | | | | [place] [address] | [phone] | | | | | [phone] | | | +--------+ + + + [...] - Maria G Burgess CC CMA - 01/19/2018 5:42 PM PDTPatient informed. Ap ril M. Aditya, CC COBBLER APPRENTICE elephone Violageneva Wilson Aditya, RICHARD Perdomo COBBLER APPRENTICE - 01/19/2018 5:42 PM PDT----- Message from Farooq Wesley DO sent at 01/19/2018 16:36 PDT ----- Labs stable ----- Message ----- From: Leonor Kasper In [facility] [id number] Sent: 01/19/2018 16:04 To: Farooq Wesley DO documented in this encounter Plan of Treatment +--------+---------+ + + + | Date | Type | Specialty | Care Team | Description | +--------+---------+ + + + | 10/04/ | Office | Primary Care | Farooq Wesley | | | 2020 | Visit | | DO [place] [address] | | | | | | [place] | | | | | | [address] | | | | | | [phone] | | | | | | | | +--------+---------+ + + + documented as of this encounter Visit Diagnoses Not on filedocumented in this encounter"
--- OUTSIDE RECORDS SUMMARY | ~2019-09-21 | XMS | Encounter Summary ---
Demographics + + + | Address | [address] | | | [place] [address] | + + + | Home Phone | | + + + | Preferred Language | Unknown | + + + | Marital Status | | + + + | Gnosticist Affiliation | 1028 | + + + | Race | Unknown | + + + | Ethnic Group | Unknown | + + + Author + + + | Author | [facility] | | | and [place] | + + + | Organization | [facility] | | | and [place] | + + + | Address | Unknown | + + + | Phone | Unavailable | + + + Support + + + + + | Name | Relationship | Address | Phone | + + + + + | Prashanth Vuong | ECON | [address] | | | | | [place] | | | | | [address] | | + + + + + Care Team Providers + +------+ + | Care Transportation Coordinator Name | Role | Phone | [...] mellitus | | 2019 | Visit | [facility] | [facility], [address] | without complication | | | | MEDICAL CL[address] | [address] [place] | (HCC) (Primary Dx) | | | | [address] [place], | [place] [address] | | | | | [place] [address] | [phone] | | | | | [phone] | | | +--------+---------+ + + + [...] an eye doctor appointment on November 03. Patient reports that she is borderline diabetic. [...] Hives and Swelling Cefazolin Hives and Rash [place] Hives and Rash Electronically signed by FLORES Rankin 10/15/2018 11:26 Note: Part of this report was transcribed using voice recognition software. Every effort wa s made to ensure accuracy. However, inadvertent computerized dramatic art teacher errors may be pre sent documented i [...] [place] | | | | | | [address] | | | | | | [phone] | | | | | | | [...]
--- OUTSIDE RECORDS SUMMARY | ~2019-09-21 | XMS | Encounter Summary ---
Demographics + + + | Address | [address] | | | [place] [address] | + + + | Home Phone [...] + | Prashanth Vuong | ECON | [address] | | | | | [place] | | | | | [address] | | + + + + + Care Team Providers + +------+ + | Care Gambreler Helper Name | Role | Phone | + +------+ + | Farooq Wesley DO | PCP | | + +------+ + Reason for Visit + +--------+ + | Reason | Onset | Comments | | | Date | | + +--------+ + | Results, Pathology | 03/11/ | egd | | | 2015 | | + +--------+ + Encounter Details +--------+ + + + + | Date | Type | Department | Care Team | Description | +--------+ + + + + | 03/11/ | Telephone | [facility] | Silvano Kaiser MD | Results, Pathology | | 2015 | | GASTROENTEROLOGY | [address], [place] | (egd) | | | | [address] [place] | [address] [place], [place] | | | | | [address] [place], [place] | [address] | | | | | [address] | | | | | | [phone] | | | +--------+ + + + [...] Telephone Encounter - Brenda Darling RN - 03/11/2016 1:43 PM PSTNotified patient th at H Pylori biopsy from stomach was negative. Esophageal biopsies negative for eosinophilic esophagitis. Patient reports her swallowing has improved after the dilatation. She contin ues to have difficulty with dry foods and drinks liquids when she eats. She agrees to call if further difficulty with her swallowing. documented in is encounter Plan of Treatment +--------+---------+ + + + | Date | Type | Specialty | Care Team | Description | +--------+---------+ + + + | 10/04/ | Office | Primary Care | Farooq Wesley | | | 2019 | Visit | | DO [place] [address] | | | | | | [place] | | | | | | [address] | | | | | | [phone] | | | | | | | | +--------+---------+ + + + documented as of this encounter Visit Diagnoses Not on filedocumented in this encounter"
--- OUTSIDE RECORDS SUMMARY | ~2019-09-21 | XMS | Encounter Summary ---
Demographics + + + | Address | [address] | | | [place] [address] | + + + | Home Phone [...] + | Prashanth Vuong | ECON | [address] | | | | | [place] | | | | | [address] | | + + + + + Care Team Providers + +------+ + | Care Control Systems Specialist Name | Role | Phone | + +------+ + | Farooq Wesley DO | PCP | | + +------+ + Reason for Visit + +--------+ + | Reason | Onset | Comments | | | Date | | + +--------+ + | Medication Problem | 12/24/ | | | | 2018 | | + +--------+ + Encounter Details +--------+ + + + + | Date | Type | Department | Care Team | Description | +--------+ + + + + | 12/24/ | Telephone | [facility] | Farooq Wesley | Medication Problem | | 2019 | | [facility] | E, DO [address] | | | | | MEDICAL CLIN[facility] [address] | [place], [place] | | | | [address] [place], | [address] | | | | | [place] [address] | [phone] | | | | | [phone] | | | +--------+ + + + [...] this encounter Miscellaneous Notes Telephone Encounter - Raghu Yo RN - 12/24/2018 5:49 PM PDTPatient notified, Raghu emery RN ele phone Encounter - Alec Maurer DNP - 12/24/2018 5:37 PM PDTDoxycycline has been ordered in place of the Ciprofloxacin. Hopefully that will be more tolerable for the patient. Elec tronically signed by Alec Maurer DNP at 12/24/2018 5:38 PM PDTTelephone Encounter - Chelo Herrera - 12/24/2018 12:32 PM PDTPt states that ciprofloxacin (CIPRO) 500 mg tablet effects the tendon in her leg and she is unable to take it. Also is onclindamycin (CLEOCIN) 300 MG capsule states that she's started it lastnight ( 12/23) Please call and advise. [phone] Thanks, Chelo Farah documented in this encounter Plan of Treatment +--------+---------+ + + + | Date | Type | Specialty | Care Team | Description | +--------+---------+ + + + | 10/04/ | Office | Primary Care | Farooq Wesley | | | 2019 | Visit | | E, DO [address] | | | | | | [place], [place] | | | | | | [address] | | | | | | [phone] | | | | | | | | +--------+---------+ + + + documented as of this encounter Visit Diagnoses + + | Diagnosis | + + | Dog bite of hand, right, initial encounter - Primary | + + documented in this encounter"
--- OUTSIDE RECORDS SUMMARY | ~2019-09-21 | XMS | Encounter Summary ---
Demographics + + + | Address | [address] | | | [place] [address] | + + + | Home Phone [...] + | Prashanth Vuong | ECON | [address] | | | | | [place] | | | | | [address] | | + + + + + Care Team Providers + +------+ + | Care Make Up Arranger Name | Role | Phone | + +------+ + | Farooq Wesley DO | PCP | | + +------+ + Reason for Visit + +--------+ + | Reason | Onset | Comments | | | Date | | + +--------+ + | Medication Refill | 10/21/ | | | | 2017 | | + +--------+ + Encounter Details +--------+--------+ + + + | Date | Type | Department | Care Team | Description | +--------+--------+ + + + | 10/21/ | Refill | [facility] | Jennifer Rowland, | Medication Refill | | 2017 | | [facility] | CC [employer] WORKER | | | | | MEDICAL CLIN[facility] [address] | | | | | | [address] [facility], | | | | | | [place] [address] | | | | | | [phone] | | | +--------+--------+ + + + [...] [place] | | | | | | [address] | | | | | | [phone] | | | | | | | | +--------+---------+ + + + documented as of this encounter Visit Diagnoses Not on filedocumented in this encounter"
--- OUTSIDE RECORDS SUMMARY | ~2019-09-21 | XMS | Encounter Summary ---
Demographics + + + | Address | [address] | | | [place] [address] | + + + | Home Phone [...] + | Prashanth Vuong | ECON | [address] | | | | | [place] | | | | | [address] | | + + + + + Care Team Providers + +------+ + | Care Supervising Chef Name | Role | Phone | + [...] + + | 09/20/ | Office | [facility] | Silvano Kaiser MD | Dysphagia, | | 2012 | Visit | GASTROENTEROLOGY | [address], [place] | unspecified (Primary | | | | [address] [place] | [address] [place], [place] | Dx); Diaphragmatic | | | | [address] [place], [place] | [address] | hernia without | | | | [address] | | mention of | | | | [phone] | | obstruction or | | | [...] documented in this encounter Progress Notes Silvano Kaiesr MD - 09/20/2012 4:41 PM PDT Subjective: [...] hiatal hernia which was dilated to 60 Macedonian. Wi th resolution of symptoms of xiphoid [...] weeks post surgery last year. Evaluation at [facility] was negative for any cause of the same . The patient had a video esophagram at [facility] with speech pathology result s are [...] proceed to get the esophagram results from [facility]. Patient may be a candidate for [...] [place] | | | | | | [address] | | | | | | [phone] | | | | | | | [...]
--- OUTSIDE RECORDS SUMMARY | ~2019-09-21 | XMS | Encounter Summary ---
Demographics + + + | Address | [address] | | | [place] [address] | + + + | Home Phone [...] + | Prashanth Vuong | ECON | [address] | | | | | [place] | | | | | [address] | | + + + + + Care Team Providers + +------+ + | Care Director Print Name | Role | Phone | + +------+ + | Farooq Wesley DO | PCP | | + +------+ + Reason for Referral Self-referral (Routine) +--------+ + + + + + | Status | Reason | Specialty | Diagnoses / | Referred By | Referred To | | | | | Procedures | Contact | Contact | +--------+ + + + + + | Closed | Specialty | Orthopedic | Diagnoses | [...] [place] | | | | | | [address] | [address] | | | | | | Phone: | Phone: | | | | | | [phone] | [phone] | | | | | | Fax: | Fax: | | | | | | [phone] | [phone] | +--------+ + + + + + [...] | | [address] [place], | [address] | Controlled type 2 | | | | [place] [address] | [phone] | diabetes mellitus | | | | [phone] | | without | | | | | | complication, | | | | | | without long-term | | | | | | current use of | | | | | | insulin ([facility]); Right | | | | | | [...] in this encounter Progress Notes Farooq Wesley, - 08/25/2018 11:00 AM PDT Patient ID: [...] complication, without long-term current use of insulin ([facility]) Right ankle pain, unspecified chronicity - Ambulatory [...] a referral to [facility]. [facility] in [place], she has worked with him bef [employer]. She is having right ankle pain. She [...] 20 mg by mouth every morning (before elidu kfast). levothyroxine (SYNTHROID) 75 MCG tablet Take [...] Right Foot: Normal Entered by Brian Coronado CMSP, acting as scribe for Morris Wesley D.O. [...] [place] | | | | | | [address] | | | | | | [phone] | | | | | | | [...] | + +---------+ + + | NIR [facility]ER | | | | + +---------+ + [...]
--- OUTSIDE RECORDS SUMMARY | ~2019-09-21 | XMS | Encounter Summary ---
Demographics + + + | Address | [address] | | | [place] [address] | + + + | Home Phone [...] + | Prashanth Vuong | ECON | [address] | | | | | [place] | | | | | [address] | | + + + + + Care Team Providers + +------+ + | Care Bi Tri Operator Name | Role | Phone | + +------+ + | Farooq Wesley DO | PCP | | + +------+ + Reason for Visit +---------+--------+ + | Reason | Onset | Comments | | | Date | | +---------+--------+ + | Results | 09/15/ | | | | 2018 | | +---------+--------+ + Encounter Details +--------+ + + + + | Date | Type | Department | Care Team | Description | +--------+ + + + + | 09/15/ | Telephone | [facility] | Farooq Wesley | Results | | 2019 | | [facility] | E, DO [address] | | | | | MEDICAL CLINIC [address] | [place], [place] | | | | | [address] [place], | [address] | | | | | [place] [address] | [phone] | | | | | [phone] | | | +--------+ + + + [...] Telephone Encounter - Maria G Burgess CC PRINT DESIGNER - 09/15/2018 9:05 AM PDTPatient leaves town t his Thursday and will not return until 10/03/2018. Per Dr. Wesley patient will d/c Metopro lol on 10/02/2018 and follow up with us in clinic on 10/06/2018 at 1:20pm to discuss medicat ion and bradycardia. Patient verbalized understanding and agreeable to plan. RICHARD Brewster CMA elephone EncounFarooq Patrick DO - 09/15/2018 8:46 AM PDTStop Toprol XL and f/u next week for bp check and plan. ele phone Encounter - Maria G Burgess CC CMA - 09/15/2018 8:43 AM PDTPatient agreeable to plan, please advise of new SIG. RICHARD Hunter CMA elephone Encounte Maria G Mccray CC [facility] - 09/15/2018 8:42 AM PDT----- Message from Farooq Wesley DO sent at 09/15/2018 8:39 PDT ----- Holter shows low HR overall. We should work on cutting down then stopping her Betablocker i f she is up for it. Let her know please. P DTdocumented in this encounter Plan of Treatment +--------+---------+ + + + | Date | Type | Specialty | Care Team | Description | +--------+---------+ + + + | 10/04/ | Office | Primary Care | Farooq Wesley | | | 2019 | Visit | | DO [address] | | | | | | [place] | | | | | | [address] | | | | | | [phone] | | | | | | | | +--------+---------+ + + + documented as of this encounter Visit Diagnoses Not on filedocumented in this encounter"
--- OUTSIDE RECORDS SUMMARY | ~2019-09-21 | XMS | Encounter Summary ---
Demographics + + + | Address | [address] | | | [place] [address] | + + + | Home Phone | | + + + | Preferred Language | Unknown | + + + | Marital Status | | + + + | Gnosticist Affiliation | 1028 | + + + | Race | Unknown | + + + | Ethnic Group | Unknown | + + + Author + + + | Author | [facility] | | | and [place] | + + + | Organization | [facility] | | | and [place] | + + + | Address | Unknown | + + + | Phone | Unavailable | + + + Support + + + + + | Name | Relationship | Address | Phone | + + + + + | Prashanth Vuong | ECON | [address] | | | | | [place] | | | | | [address] | | + + + + + Care Team Providers + +------+ + | Care Security Intelligence Analyst Name | Role | Phone | [...] 2015 | | GASTROENTEROLOGY | [address], [place] | | | | | [address] [place] | [address] [place], [place] | | | | | [address] [place], [place] | [address] | | | | | [address] | | | | | | [phone] | | | +--------+ + + + [...] [place] | | | | | | [address] | | | | | | [phone] | | | | | | | | +--------+---------+ + + + documented as of this encounter Visit Diagnoses Not on filedocumented in this encounter
--- OUTSIDE RECORDS SUMMARY | ~2019-09-21 | XMS | Encounter Summary ---
Demographics + + + | Address | [address] | | | [place] [address] | + + + | Home Phone | | + + + | Preferred Language | Unknown | + + + | Marital Status | | + + + | Yarsani Affiliation | 1028 | + + + | Race | Unknown | + + + | Ethnic Group | Unknown | + + + Author + + + | Author | [facility] | | | and [place] | + + + | Organization | [facility] | | | and [place] | + + + | Address | Unknown | + + + | Phone | Unavailable | + + + Support + + + + + | Name | Relationship | Address | Phone | + + + + + | Prashanth Vuong | ECON | [address] | | | | | [place] | | | | | [address] | | + + + + + Care Team Providers + +------+ + | Care Bar Gauger And Lubricator Tender Name | Role | Phone | + +------+ + | Farooq Wesley DO | PCP | | + +------+ + Reason for Visit + +--------+ + | Reason | Onset | Comments | | | Date | | + +--------+ + | Diabetes Mellitus | 11/24/ | | | Management | 2019 | | + +--------+ + Encounter Details +--------+ + + + + | Date | Type | Department | Care Team | Description | +--------+ + + + + | 11/24/ | Telephone | [facility] | Farooq Wesley | Diabetes Mellitus | | 2019 | | [facility] | E, DO [address] | Management | | | | MEDICAL CLINIC [address] | [place], [place] | | | | [address] [place], | [address] | | | | | [place] [address] | [phone] | | | | | [phone] | | | +--------+ + + + [...] this encounter Miscellaneous Notes Telephone Encounter - Jonny Alcala - 11/24/2018 10:01 AM PDTPt has been scheduled and wi ll do labs prior to appointment. Jonny Alcala elephone Encounter - Adina Armijo CC CMA - 11/24/2018 7:14 AM PDTPt is due for DM fu appt in January. Please schedule. Remind patient to have non fasting labs done prior to appt. Thanks. RICHARD Bolivar CMA documented in th is [...] [place] | | | | | | [address] | | | | | | [phone] | | | | | | | [...]
--- OUTSIDE RECORDS SUMMARY | ~2019-09-21 | XMS | Encounter Summary ---
Demographics + + + | Address | [address] | | | [place] [address] | + + + | Home Phone [...] + | Prashanth Vuong | ECON | [address] | | | | | [place] | | | | | [address] | | + + + + + Care Team Providers + +------+ + | Care Linen Supervisor Name | Role | Phone | + +------+ + | Farooq Wesley DO | PCP | | + +------+ + Reason for Visit + +--------+ + | Reason | Onset | Comments | | | Date | | + +--------+ + | Results, Imaging | 01/22/ | | | | 2017 | | + +--------+ + Encounter Details +--------+ + + + + | Date | Type | Department | Care Team | Description | +--------+ + + + + | 01/22/ | Telephone | [facility] | Maria G Burgess, CC | Results, Imaging | | 2018 | | [facility] | OFFSET MACHINE OPERATOR | | | | | MEDICAL CLINIC [address] | | | | | | [address] [facility], | | | | | | [place] [address] | | | | | | [phone] | | | +--------+ + + + [...] - Maria G Burgess CC CMA - 01/22/2018 5:34 PM PDTPatient informed of Maurilio VALDEZ Brain results. As per Dr. Wesley and impression. No evidence of acute intracranial hem orrhage, infarction or mass. RICHARD Hunter CMA documented in this encounter Plan of Treatment +--------+---------+ + + + | Date | Type | Specialty | Care Team | Description | +--------+---------+ + + + | 10/04/ | Office | Primary Care | Farooq Wesley | | | 2019 | Visit | | DO [place] [address] | | | | | | [place] | | | | | | [address] | | | | | | [phone] | | | | | | | | +--------+---------+ + + + documented as of this encounter Visit Diagnoses Not on filedocumented in this encounter"
--- OUTSIDE RECORDS SUMMARY | ~2019-09-21 | XMS | Encounter Summary ---
Demographics + + + | Address | [address] | | | [place] [address] | + + + | Home Phone [...] + | Prashanth Vuong | ECON | [address] | | | | | [place] | | | | | [address] | | + + + + + Care Team Providers + +------+ + | Care Registered Nurse Maternal Child Name | Role | Phone | + [...] | 2016 | Changes | GASTROENTEROLOGY | Fuse Coiler | | | | | [address] | | | | | | [address] [place] | | | | | | [address] | | | | | | [phone] | | | +--------+ + + + [...] [place] | | | | | | [address] | | | | | | [phone] | | | | | | | | +--------+---------+ + + + documented as of this encounter Visit Diagnoses Not on filedocumented in this encounter"
--- OUTSIDE RECORDS SUMMARY | ~2019-09-21 | XMS | Encounter Summary ---
Demographics + + + | Address | [address] | | | [place] [address] | + + + | Home Phone [...] + | Prashanth Vuong | ECON | [address] | | | | | [place] | | | | | [address] | | + + + + + Care Team Providers + +------+ + | Care Category Development Analyst Name | Role | Phone | + +------+ + | Farooq Wesley DO | PCP | | + +------+ + Reason for Visit + + + | Reason | Comments | + + + | New Patient | cora | + + + Evaluate & Treat (Routine) + + + [...] F | | | | | | [address] | [place], [place] | | | | | | Phone: | [phone] Phone: | | | | | | [phone] | [phone] | | | | | | Fax: | Fax: | | | | | | [phone] | [phone] | + + + + + + + Encounter Details +--------+---------+ + + + | Date | Type | Department | Care Team | Description | +--------+---------+ + + + | 06/20/ | Office | [facility] | Fahad Martinez, | Dizziness (Primary | | 2019 | Visit | CARDIOLOGY KITTY | [address] | Dx); Near syncope; | | | | [address] | [facility] | Sinus bradycardia by | | | | [address] | [place] [address] | electrocardiogram; | | | | [place] | [phone] | Essential | | | | [address] | | hypertension; | | | | [phone] | | Acquired | | | | | | hypothyroidism | +--------+---------+ + + + Social History [...] + + + | Blood Pressure | 124/70 | 06/21/2019 1:27 PM | ra | | | | PDT | | + + + + + | Pulse | 52 | 06/21/2019 1:25 PM | | | | | PDT | | + + + + + | Temperature | - | - | | + + + + + | Respiratory Rate | - | - | | + + + + + | Oxygen Saturation | 99% | 06/21/2019 1:25 PM | | | | | PDT | | + + + + + | Inhaled Oxygen | - | - | | | Concentration | | | | + + + + + | Weight | 70.9 kg (156 lb 4.8 | 06/21/2019 1:25 PM | | | | oz) | PDT | | + + + + + | Height | 154.9 cm (5' 1") | 06/21/2019 1:25 PM | | | | | PDT | | + + + + + | Body Mass Index | 29.53 | 06/21/2019 1:25 PM | | | | | PDT | | + + + + + documented in this encounter Progress Notes Fahad Martinez MD - 06/21/2019 1:30 PM PDTFormatting of this note might be different fro m the original. Subjective: Patient ID: Lita Vuong is a 79 y.o. female. HPI Patient's medications, allergies, past medical, surgical, social and family histories were obtained and reviewed as appropriate. Mrs. Vuong, accompanied by her daughter, came [...] a Amaury r monitor in August, at [facility] that showed sinus bradycardia, with heart ra maliha as low as 43 and an average rate of 54 bpm. I will see her back afterwards for further evaluation. She will have routine lab work done as well, with a CBC, CMP and TSH, as she do es not think that this has been checked for at least 2 years. ROS CONSTITUTIONAL: 12-13 lb weight decrease with the Atkins diet in the last several months, denies recent fever, chills, night sweats, has episodes of significant Fatigue, "heavy, all over, like my legs are not going to hold me" several times in the past few months while keira oliveira, has to sit down. She notes mild Memory Deficits. NEUROLOGIC: Records indicate a history of "stroke syndrome", with visual alterations "like a lava lamp", seen by a neurologist in [place], diagnosed as "coming from the nerves on th e outside, not the inside" around 2007, no clear history of CVA, TIA, has a h/o Ocular Migra anel, had Seizures, at age 10 months (associated with whooping cough) and medication-induced at age 20. She had a Syncopal event 2018 after standing for a prolonged time, was also hav ing bradycardia at that time. She c/o Dizziness, as above. No numbness, tingling, paresthes ias. 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 No amaurosis, diplopi a, recent visual changes, had surgery for cataracts, no h/o glaucoma ENT: She has mild Hearing Loss, Tinnitus, denies epistaxis, has a h/o Dysphagia, with mult iple esophageal dilatations ENDOCRINE: She has Type 2 Diabetes mellitus, Hypothyroidism, previous right ro-thyroidec torrey, no other endocrine problems. No excessive hunger, thirst. PULMONARY/SLEEP: No dyspnea, orthopnea, paroxysmal nocturnal dyspnea. She has a history o f Asthma, seasonal or triggered by smoke, denies emphysema. She has a history of Pneumonia t wice. She has Obstructive Sleep Apnea, off CPAP since she lost weight, denies significant sn oring, daytime somnolence. Sleep is refreshing. CARDIOVASCULAR: Denies recent chest pain, pressure or discomfort, was seen in the [facility] ER 1 04/28/17 for chest pain, with negative EKG and troponins, had a non-diagnostic exercise stress test 03/01/18 (records indicate treadmill malfunction), attributed to Esophageal Spasm. No history of CAD. No history of heart failure. No history of cardiac arrhythmias except sinus bradycardia, has rare, fleeting "skip" Palpitations. No history of a heart murmur, rheumat ic fever. She has a history of Essential Hypertension, Hyperlipidemia. She has mild, inter mittent Pedal Edema, no claudication symptoms. No h/o an AAA. -- 48 Hour Holter (09/02/18 - [facility]): predominantly sinus bradycardia, ave HR 54, range 43-72 bpm, rare PACs, atrial triplets, rare PVCs, no symptoms reported GASTROINTESTINAL: GERD, Snyder's Esophagus, Schatzki's ring dilated 04/24/18 (Silvano Kaiser MD). No recent abdominal pain, nausea, vomiting or diarrhea. She has a h/o PUD, denies angel christopher, hematochezia, hepatitis. RENAL/: No history of kidney disease. No dysuria, hematuria, urinary urgency, hesitancy . She has Nocturia. HEMATOLOGY/ONCOLOGY: No h/o bleeding disorders, DVT, PE. She notes easy Bruisability wit hout significant bleeding. No history of anemia, transfusions. She has a history of Cervic al Cancer in the 1970s, Skin Cancer of both hands. MUSCULOSKELETAL: No myalgias, has Osteoarthritis, Osteoporosis, Bursitis of the left hip. She has cervical and left thumb arthralgias. She has Cervical DDD, spondylosis, Thoracic S coliosis No history of rheumatologic or autoimmune diseases. CUTANEOUS: No rashes, pruritus, lesions. PSYCHIATRIC: No history of depression, anxiety or other psychiatric problems. Past Medical History: Diagnosis Date Asthma Snyder esophagus 05/07/12 Cervical spondylolysis Degeneration, intervertebral disc, cervical Diffuse esophageal spasm DM (diabetes mellitus) (HCC) Dyskinesia of esophagus Dyslipidemia Dysphagia Essential hypertension, benign GERD (gastroesophageal reflux disease) H/O thrombosis History of cervical cancer Hyperlipidemia Hypothyroidism s/p thyroidectomy s/p right ro-thyroidectomy Osteoarthritis of acromioclavicular joint Right Osteoarthritis of knee Osteoporosis postmenopausal Partial thickness miranda (2nd Deg) Forearm Left Retinal ischemia Rotator cuff tendonitis Sleep apnea on CPAP Past Surgical History: Procedure Laterality Date BREAST REDUCTION SURGERY 1993 bilateral CATARACT REMOVAL 08/2016 COLONOSCOPY 10/25/12 COLONOSCOPY N/A 04/23/2018 Procedure: COLONOSCOPY; Surgeon: Silvano Kaiser MD; Location: [facility] ESOPHAGEAL DILATATION 2012 Dr. Kaiser HYSTERECTOMY THYROID SURGERY hemithyroidectomy - right TOTAL KNEE ARTHROPLASTY May, right, partial UPPER GASTROINTESTINAL ENDOSCOPY 10/25/12 next due 10/2013 UPPER GASTROINTESTINAL ENDOSCOPY N/A 03/05/2016 Procedure: EGD; Surgeon: Silvano Kaiser MD; Location: [facility] UPPER GASTROINTESTINAL ENDOSCOPY N/A 02/03/2017 Procedure: EGD; Surgeon: Silvano Kaiser MD; Location: [facility] UPPER GASTROINTESTINAL ENDOSCOPY N/A 04/23/2018 Procedure: EGD; Surgeon: Silvano Kaiser MD; Location: [facility] Family History Problem Relation Age of Onset Other (see comment) Mother osteoporosis Stroke Mother Cancer Paternal Grandmother "stomach" Diabetes Paternal Grandmother Breast cancer Maternal Aunt Diabetes Paternal Grandfather Stroke Paternal Grandfather No known problems Father Diabetes Brother Diabetes Maternal Grandmother No known problems Maternal Grandfather Melanoma Son Stroke Daughter Social History Socioeconomic History Marital status: Spouse name: Prashanth Number of children: 4 Years of education: Not on file Highest education level: Not on file Occupational History 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 Social Needs Financial resource strain: Not on file Food insecurity: Worry: Not on file Inability: Not on file Transportation needs: Medical: Not on file Non-medical: Not on file Tobacco Use Smoking status: Never Smoker Smokeless tobacco: Never Used Substance and Sexual Activity Alcohol use: Yes Alcohol/week: 1.0 standard drinks Types: 1 Glasses of wine per week Frequency: 2-4 [...] file Gets together: Not on file Attends faith service: Not on file Active member of [...] didn't wake up for three days" Meloxicam Swelling,Rash Swelling of throat Penicillins Hives,Swelling Throat swelling Rivaroxaban Nausea And Vomiting,Swelling AKA "Xeralto" Sulfa Antibiotics Hives,Swelling Cefazolin Hives,Rash [place] Hives,Rash Intolerance No active intolerances/contraindications Current Outpatient Medications Medication Sig Dispense Refill [...] No current facility-administered medications for this visit. Objective: BP 124/70 Comment: ra | Pulse 52 | Ht 1.549 m (5' 1") | Wt 70.9 kg (156 lb 4.8 oz) | LMP (LMP Unknown) | SpO2 99% | BMI 29.53 kg/m BP 120/74 left arm PHYSICAL EXAM GENERAL: Well developed, well nourished, in no distress. Appears approximately stated age . HEENT: Normocephalic, atraumatic. EYES: PERRL, sclerae anicteric, no xanthelsasmas MOUTH: Oral mucosae moist, dentition adequate, no lesions noted NECK: No JVD, lymphadenopathy, thyromegaly, bruits. Carotid pulses are 2+ bilaterally LUNGS: Clear bilaterally, with no rales, rhonchi or wheezing noted, respirations unlabored HEART: Nondisplaced PMI, mildly bradycardic rate, regular rhythm, S1, S2 normal. No murmu rs, rubs or gallops noted. ABDOMEN: Soft, nontender, no organomegaly, masses or bruits. Bowel sounds are normal in a ll 4 quadrants. The abdominal aortic pulsation is not palpable. EXTREMITIES: No edema. Radial pulses 2+ bilaterally. Femoral pulses are 2+ bilaterally wi thout bruits. DP and PT pulses are 2+ bilaterally. SKIN: Warm and dry, capillary refill is normal, no lesions. NEUROLOGIC: Awake, alert and oriented x 3. No focal motor deficits. PSYCHIATRIC: Appropriate, affect appears normal EKG (personally reviewed today): Sinus bradycardia, rate 48, poor R wave progression V2-V5, otherwise normal EKG Assessment: Lita was seen today for new patient. Diagnoses and all orders for this visit: Dizziness - Holter monitor - 30 days; Future Near syncope - Holter monitor - 30 days; Future Sinus bradycardia by electrocardiogram - ECG 12 lead Essential hypertension Acquired hypothyroidism Plan: Follow-up after the event monitor documented in this encounter Plan of Treatment [...] [place] | | | | | | [address] | | | | | | [phone] | | | | | | | | +--------+---------+ + + + + +------+--------+ + + | Name | Type | Priori | Associated Diagnoses | Order Schedule | | | | ty | | | + +------+--------+ + + | Holter monitor - 30 | ECG | Routin | Dizziness Near | Expected: | | days | | e | syncope | 06/28/2019, Expires: | | | | | | 06/20/2020 | + +------+--------+ + + documented as of this encounter Procedures + +--------+ + + + | Procedure Name | Priori | Date/Time | Associated Diagnosis | Comments | | | ty | | | | + +--------+ + + + | ECG 12 LEAD | Routin | 06/21/2019 | Sinus bradycardia | Results for this | | | e | 1:30 PM | by electrocardiogram | procedure are in the | | | | PDT | | results section. | + +--------+ + + + documented in this encounter Results ECG 12 lead (06/21/2019 1:30 PM PDT) + + + + + + | Component | Value | Ref Range | Performed | Pathologist | | | | | At | Signature | + + + + + + | VENTRICULAR | 48 | BPM | [facility] | | | RATE EKG | | | | | + + + + + + | ATRIAL RATE | 48 | BPM | [facility] | | + + + + + + | P-R | 182 | ms | [facility] | | | INTERVAL | | | | | + + + + + + | QRS | 90 | ms | [facility] | | | DURATION | | | | | + + + + + + | Q-T | 448 | ms | [facility] | | | INTERVAL | | | | | + + + + + + | Q-T | 400 | ms | [facility] | | | INTERVAL | | | | | | (CORRECTED) | | | | | + + + + + + | P WAVE AXIS | 21 | degrees | [facility] | | + + + + + + | QRS AXIS | -20 | degrees | [facility] | | + + + + + + | T AXIS | 36 | degrees | [facility] | | + + + + + + | INTERPRETAT | Sinus | | [facility] | | | ION TEXT | bradycardiaOtherwise | | | | | | normal ECGNo previous | | | | | | ECGs availableConfirmed | | | | | | by Fahad Martinez MD | | | | | | ([id number]) on 06/22/2019 | | | | | | 1:32:42 PM | | | | + + + [...] | + +---------+ + + | [facility] | | | | + +---------+ + + documented in this encounter Visit Diagnoses + + | Diagnosis | + + | Dizziness - Primary Dizziness and giddiness | + + | Near syncope Syncope and collapse | + + | Sinus bradycardia by electrocardiogram Other specified cardiac dysrhythmias | + + | Essential hypertension Unspecified essential hypertension | + + | Acquired hypothyroidism Unspecified hypothyroidism | + + documented in this encounter
--- OUTSIDE RECORDS SUMMARY | ~2019-09-21 | XMS | Encounter Summary ---
Demographics + + + | Address | [address] | | | [place] [address] | + + + | Home Phone | | + + + | Preferred Language | Unknown | + + + | Marital Status | | + + + | Faith Affiliation | 1028 | + + + [...] + | Prashanth Vuong | ECON | [address] | | | | | [place] | | | | | [address] | | + + + + + Care Team Providers + +------+ + | Care Brand Planner Name | Role | Phone | + [...] | DO [address] | [address], | | | | | Esophageal | [address] | [address] | | | | | obstruction | [place], [place] | [place], | | | | | Procedures | [address] | [place] [address] | | | | | OFFICE | Phone: | Phone: | | | | | VISIT/EGD | [phone] | [phone] | | | | | | Fax: | Fax: | | | | | | [phone] | [phone] | +--------+--------+ + + + + Encounter Details +--------+---------+ + + + | Date | Type | Department | Care Team | Description | +--------+---------+ + + + | 04/14/ | Office | [facility] | Silvano Kaiser MD | Esophageal dysphagia | | 2019 | Visit | GASTROENTEROLOGY | [address], [place] | (Primary Dx); | | | | [address] | [address] [place], [place] | Change in bowel | | | | [address] [place], [place] | [address] | habits | | | | [address] | | | | | | [phone] | | | +--------+---------+ + + + [...] + + + documented in this encounter H&P Notes Silvano Kaiser MD - 04/14/2018 2:30 PM PST Lita Vuong is an 77 y.o. female. The patient is seen for evaluation of dysphagia diarrhea. Outside records are reviewed nimo or evaluation reviewed Patient complains of dysphagia for primarily meat in the lower esophageal area. She had on e episode of esophageal obstruction and was on the way to the emergency room before the [facility] e of dona sunshine released. She now [...] she had a barium swallow done at [facility] in [place] multiple years ago. She does not feel as if she couldn't tolerate esophageal manometry catheter. Patient complains of diarrhea. By diarrhea she means runny stools. She'll have occasional episodes of urgency and incontinence. It's been going on for approximately 2 years. Resta urant foods seem to increase her symptoms particularly Albanian or spicy foods. She will hav e [...] Hives and Swelling Cefazolin Hives and Rash [place] Hives and Rash Active Problems: * No [...] Silvano Kaiser 04/14/2018 documented in this encounter Plan of Treatment [...] [place] | | | | | | [address] | | | | | | [phone] | | | | | | | | +--------+---------+ + + + documented as of this encounter Visit Diagnoses + + | Diagnosis | + + | Esophageal dysphagia - Primary Dysphagia, pharyngoesophageal phase | + + | Change in bowel habits Other symptoms involving digestive system | + + documented in this encounter
--- OUTSIDE RECORDS SUMMARY | ~2019-09-21 | XMS | Encounter Summary ---
Demographics + + + | Address | [address] | | | [place] [address] | + + + | Home Phone [...] + | Prashanth Vuong | ECON | [address] | | | | | [place] | | | | | [address] | | + + + + + Care Team Providers + +------+ + | Care Weed Thinner Name | Role | Phone | + [...] [address] | | | | | OR UPPER GI | [address] | [address] | | | | | ENDOSCOPY,DI | [address] [place] | [address] [place] | | | | | AGNOSIS [place] | [place], [place] | [place] | | | | | UPPER GI | [address] | [address] Phone: | | | | | ENDOSCOPY,BI | Phone: | [phone] | | | | | OPSY | [phone] | Fax: | | | | | | Fax: | [phone] | | | | | | [phone] | | +--------+ + + + + [...] | 04/02/ | Office | [facility] | Curt Sandoval, | Dysphagia (Primary | | 2012 | Visit | GASTROENTEROLOGY | [address] | Dx) | | | | [address] | [address] [place], | | | | | [address] [place], [place] | [place] [address] | | | | | [address] | [phone] | | | | | [phone] | | | +--------+---------+ + + + [...] Curt Hester MD - 04/02/2012 12:00 AM [facility] GASTROENTEROLOGY [address] [place] [address] FAX: [phone] OFFICE VISIT HISTORY OF PRESENT ILLNESS: The [...] Sandoval M.D. KALEY / FLOR JOB #: [id number] signed by Curt Sandoval MD at 04/02/2012 5:00 PM PSTdocume nted in this encounter Miscellaneous Notes Addendum Note - Ruth Walls RN - 04/02/2012 3:14 PM PST Addended by: RUTH WALLS on: 04/02/2012 15:14 Modules accepted: Orders [email or web address] - TERESITA E [facility] - 04/02/2012 12:00 AM PST 10: 51 AM PDTdocumented in this encounter Plan of [...] [place] | | | | | | [address] | | | | | | [phone] | | | | | | | [...]
--- OUTSIDE RECORDS SUMMARY | ~2019-09-21 | XMS | Encounter Summary ---
Demographics + + + | Address | [address] | | | [place] [address] | + + + | Home Phone | | + + + | Preferred Language | Unknown | + + + | Marital Status | | + + + | Taoist Affiliation | 1028 | + + + | Race | Unknown | + + + | Ethnic Group | Unknown | + + + Author + + + | Author | [facility] | | | and [place] | + + + | Organization | [facility] | | | and [place] | + + + | Address | Unknown | + + + | Phone | Unavailable | + + + Support + + + + + | Name | Relationship | Address | Phone | + + + + + | Prashanth Vuong | ECON | [address] | | | | | [place] | | | | | [address] | | + + + + + Care Team Providers + +------+ + | Care Marketer Name | Role | Phone | + +------+ + | Farooq Wesley DO | PCP | | + +------+ + Reason for Visit +---------+--------+ + | Reason | Onset | Comments | | | Date | | +---------+--------+ + | Results | 02/06/ | | | | 2016 | | +---------+--------+ + Encounter Details +--------+ + + + + | Date | Type | Department | Care Team | Description | +--------+ + + + + | 02/06/ | Telephone | [facility] [place] | Silvano Kaiser MD | Results | | 2016 | | GASTROENTEROLOGY | [address], [address] | | | | | [address] | [address] [place], [place] | | | | | [address] [place], [place] | [address] | | | | | [address] | | | | | | [phone] | | | +--------+ + + + [...] Telephone Encounter - Brenda Darling RN - 02/06/2017 1:25 PM PSTNotified patient th at H. pylori biopsy from your stomach is negative. Dr. Kaiser asks for update on her swallow ing since the dilatation. Patient states her swallowing is "wonderful". She states "it's n ight and day" and she was even able to eat a steak dinner. She agrees to call if any furthe r difficulty with her swallowing.Electronically signed by Brenda Darling RN at 017 1:27 PM PSTdocumented in this encounter Plan of [...] [place] | | | | | | [address] | | | | | | [phone] | | | | | | | | +--------+---------+ + + + documented as of this encounter Visit Diagnoses Not on filedocumented in this encounter
--- OUTSIDE RECORDS SUMMARY | ~2019-09-21 | XMS | Encounter Summary ---
Demographics + + + | Address | [address] | | | [place] [address] | + + + | Home Phone | | + + + | Preferred Language | Unknown | + + + | Marital Status | | + + + | Roman Catholic Affiliation | 1028 | + + + | Race | Unknown | + + + | Ethnic Group | Unknown | + + + Author + + + | Author | [facility] | | | and [place] | + + + | Organization | [facility] | | | and [place] | + + + | Address | Unknown | + + + | Phone | Unavailable | + + + Support + + + + + | Name | Relationship | Address | Phone | + + + + + | Prashanth Vuong | ECON | [address] | | | | | [place] | | | | | [address] | | + + + + + Care Team Providers + +------+ + | Care Dock Grader Name | Role | Phone | + +------+ + | Farooq Wesley DO | PCP | | + +------+ + Encounter Details +--------+ + + + + | Date | Type | Department | Care Team | Description | +--------+ + + + + | 12/03/ | Abstract | [facility] | Farooq Wesley | | | 2017 | | [facility] | E, DO [address] | | | | | [facility] | [place], [place] | | | | | [address] [place], | [address] | | | | | [place] [address] | [phone] | | | | | [phone] | | | +--------+ + + + [...] [place] | | | | | | [address] | | | | | | [phone] | | | | | | | [...]
--- OUTSIDE RECORDS SUMMARY | ~2019-09-21 | XMS | Encounter Summary ---
Demographics + + + | Address | [address] | | | [place] [address] | + + + | Home Phone | | + + + | Preferred Language | Unknown | + + + | Marital Status | | + + + | Mormonism Affiliation | 1028 | + + + | Race | Unknown | + + + | Ethnic Group | Unknown | + + + Author + + + | Author | [facility] | | | and [place] | + + + | Organization | [facility] | | | and [place] | + + + | Address | Unknown | + + + | Phone | Unavailable | + + + Support + + + + + | Name | Relationship | Address | Phone | + + + + + | Prashanth Vuong | ECON | [address] | | | | | [place] | | | | | [address] | | + + + + + Care Team Providers + +------+ + | Care Vision Impaired Teacher Name | Role | Phone | + +------+ + PCP | Unavailable | + +------+ + Encounter Details +--------+ + + + + | Date | Type | Department | Care Team | Description | +--------+ + + + + | 08/14/ | Hospital | [facility] | Silvano Kaiser MD | | | 2010 | Encounter | MED CTR MP INTRA OP | [address], [place] | | | | | [address] | [address] | | | | | [place], [place] | [address] | | | | | [address] | | | | | | [phone] | | | +--------+ + + + [...] Op Note - Silvano Kaiser MD - 08/14/2010 11:39 AM PDTPatient Name: Lita Vuong Gender: Judit Procedure Date: 08/14/2010 2:05 PM Date of : 1940 Age: 70 Admit Type: Outpatient Room: Endo Room 1 Note Status: Finalized Attending MD: Silvano Kaiser MD Procedure: Upper GI endoscopy Indications: Esophageal dysphagia, Chest pain (non cardiac) Providers: Silvano Kaiser MD, Josh Shi RN, Monik Alvarez, Avionics System Engineer Referring MD: Morris Wesley DO Medicines: Midazolam 5 mg IV, Meperidine 50 mg IV, Cetacaine spray, Gentamicin 80 mg IV, Vancomycin 1000 mg IV Complications: No immediate complications. Estimated blood loss: Minimal. Procedure: - Prior to the procedure, a History and Physical was performed, and patient medications, allergies and sensitivities have been reviewed. The patient's tolerance of previous anesthesia has been reviewed. - The risks and benefits of the procedure and the sedation options and risks were discussed with the patient. All questions were answered and informed consent was obtained. - Patient identification and proposed procedure were verified prior to the procedure by the physician and the nurse. The procedure was verified in the procedure room. - Airway Examination: small/crowded oropharyngeal airway and Mallampati Class III (part of the uvula and soft palate visualized). - Mental Status Examination: alert and oriented. - CV Examination: normal. - Respiratory Examination: clear to auscultation. - Abdominal Examination: bowel sounds present, abdomen soft and non-tender, no masses or organomegaly noted. - ASA Grade Assessment: III - A patient with severe systemic disease. - Prophylactic Antibiotics: The patient requires prophylactic antibiotics due to a prior history of prosthetic joint replacement, and for the planned performance of dilation. - The anesthesia plan was to use [...] Findings: The cricopharyngeus, upper third of the esophagus and middle third of the esophagus were normal. Biopsies were taken with a cold forceps for histology. Estimated blood loss was minimal. Verification of patient identification for the specimen was done by the physician and nurse. The lower third of the esophagus was normal. The Z-line was irregular and was found 35 cm from the incisors. A medium-sized hiatus hernia was found. The proximal extent of the gastric folds (end of tubular esophagus) was 35 to 40 cm from the incisors. The Z-line was at the gastroesophageal junction. Multiple small sessile polyps with no stigmata of recent bleeding were found in the cardia and in the gastric fundus. Two localized, small non-bleeding erosions were found in the gastric antrum. There were no stigmata of recent bleeding. Biopsies were taken with a cold forceps for Helicobacter pylori testing using CLOtest. Estimated blood loss was minimal. Verification of patient identification for the specimen was done by the physician and nurse. The duodenal bulb, first part of the duodenum, 2nd part of the duodenum, area of the papilla and 3rd part of the duodenum were normal. The retroflexed view confirmed previous findings,A non-obstructing and mild Schatzki ring (acquired) was found at the gastroesophageal junction. A TTS dilator was passed through the scope. Dilation with an 18-19-20 mm x 180 cm CRE balloon (to a maximum balloon size of 20 mm) dilator was successfully performed. Estimated blood loss was minimal. Impression: - Normal at the cricopharyngeus, in the upper third of the esophagus and in the middle third of the esophagus. This was biopsied. - Normal in the lower third of the esophagus. - Z-line irregular, 35 cm from the incisors. - Hiatus hernia. - Multiple gastric polyps. - Non-bleeding erosive gastropathy. This was biopsied. - Normal duodenal bulb, first part of the duodenum, 2nd part of the duodenum, area of the papilla and 3rd part of the duodenum. - Duodenal bulb, first part of the duodenum, 2nd part of the duodenum, area of the papilla, 3rd part of the duodenum, non-obstructing and mild Schatzki ring. Dilated. Recommendation: - Discharge patient to home (ambulatory). - Mechanical soft diet today. - Use Prevacid (lansoprazole) at 30 mg by mouth twice a day for 7 days. - Continue present medications. - Await pathology results. - Repeat the upper endoscopy for surveillance based on pathology results. - Return to primary care physician as previously scheduled. - Telephone GI clinic for pathology results in 1 week. - Telephone GI clinic if symptomatic. Silvano Kaiser MD Signed Date: 08/14/2010 2:42 PM Number of Addenda: 0 Note initiated on 08/14/2010 2:06 PM Scope Withdrawal Time: N/A Total Procedure Duration Time: 08 minutes 16 seconds <Electronically Signed by Silvano Kaiser MD> 08/14/10 1444 documented in this encounter Plan of Treatment +--------+---------+ + + + | Date | Type | Specialty | Care Team | Description | +--------+---------+ + + + | 10/04/ | Office | Primary Care | Farooq Wesley | | | 2019 | Visit | | E, DO [address] | | | | | | [place] | | | | | | [address] | | | | | | [phone] | | | | | | | [...] GASTRIC | Negative for Urease | | [facility] | | | BIOPSY | | | [facility] | | | UREASE TEST | | [...] [address] | [place] | [phone] | | [facility] | | [address] | | | - LABORATORY | | | | + + + + + | [facility] | [address] | [place] | | | [facility] | | [address] | | | - LABORATORY | | | | + + + + + documented in this encounter Visit Diagnoses Not on filedocumented in this encounter"
--- OUTSIDE RECORDS SUMMARY | ~2019-09-21 | XMS | Encounter Summary ---
Demographics + + + | Address | [address] | | | [place] [address] | + + + | Home Phone | | + + + | Preferred Language | Unknown | + + + | Marital Status | | + + + | Adventism Affiliation | 1028 | + + + | Race | Unknown | + + + | Ethnic Group | Unknown | + + + Author + + + | Author | [facility] | | | and [place] | + + + | Organization | [facility] | | | and [place] | + + + | Address | Unknown | + + + | Phone | Unavailable | + + + Support + + + + + | Name | Relationship | Address | Phone | + + + + + | Prashanth Vuong | ECON | [address] | | | | | [place] | | | | | [address] | | + + + + + Care Team Providers + +------+ + | Care Annealing Furnace Tender Name | Role | Phone | + +------+ + | Farooq Wesley DO | PCP | | + +------+ + Reason for Visit +--------+ + | Reason | Comments | +--------+ + | Other | 30 day event monitor | +--------+ + Encounter Details +--------+ + + + + | Date | Type | Department | Care Team | Description | +--------+ + + + + | 07/06/ | Procedure | [facility] | Fahad Martinez, | Dizziness; | | 2019 | visit | CARDIOLOGY KITTY | MD [address] | Near syncope | | | | [address] | [address] | | | | | [address] | [place] [address] | | | | | [place] | [phone] | | | | | [address] | | | | | | [phone] | | | +--------+ + + + [...] documented as of this encounter Progress Notes Cony Olivia CMA - 07/07/2019 3:00 PM PDT30 day cardiac event monitor placed on patie nt. EOB/Billing information discussed. Instructions given and understood.Electronically sign ed by Cony Olivia CMA at 07/07/2019 3:03 PM PDTdocumented in this encounter Plan of [...] [place] | | | | | | [address] | | | | | | [phone] | | | | | | | | +--------+---------+ + + + documented as of this encounter Visit Diagnoses + + | Diagnosis | + + | Dizziness Dizziness and giddiness | + + | Near syncope Syncope and collapse | + + documented in this encounter"
--- OUTSIDE RECORDS SUMMARY | ~2019-09-21 | XMS | Encounter Summary ---
Demographics + + + | Address | [address] | | | [place] [address] | + + + | Home Phone [...] + | Prashanth Vuong | ECON | [address] | | | | | [place] | | | | | [address] | | + + + + + Care Team Providers + +------+ + | Care Crusher Machine Operator Name | Role | Phone | + +------+ + | Farooq Wesley DO | PCP | | + +------+ + Encounter Details +--------+ + + + + | Date | Type | Department | Care Team | Description | +--------+ + + + + | 03/01/ | Abstract | [facility] | Farooq Wesley | | | 2017 | | [facility] | E, DO [address] | | | | | MEDICAL CLIN[facility] [address] | [place], [place] | | | | | [address] [place], | [address] | | | | | [place] [address] | [phone] | | | | | [phone] | | | +--------+ + + + [...] [place] | | | | | | [address] | | | | | | [phone] | | | | | | | | +--------+---------+ + + + documented as of this encounter Visit Diagnoses Not on filedocumented in this encounter"
--- OUTSIDE RECORDS SUMMARY | ~2019-09-21 | XMS | Encounter Summary ---
Demographics + + + | Address | [address] | | | [place] [address] | + + + | Home Phone [...] + | Prashanth Vuong | ECON | [address] | | | | | [place] | | | | | [address] | | + + + + + Care Team Providers + +------+ + | Care Book Repairer Name | Role | Phone | + +------+ + | Farooq Wesley DO | PCP | | + +------+ + Reason for Visit +--------+--------+ + | Reason | Onset | Comments | | | Date | | +--------+--------+ + | Other | 01/19/ | | | | 2017 | | +--------+--------+ + Encounter Details +--------+ + + + + | Date | Type | Department | Care Team | Description | +--------+ + + + + | 01/19/ | Telephone | [facility] | Farooq Wesley | Other | | 2018 | | [facility] | E, DO [address] | | | | | MEDICAL CLIN[facility] [address] | [place], [place] | | | | | [address] [place], | [address] | | | | | [place] [address] | [phone] | | | | | [phone] | | | +--------+ + + + [...] Maria G Burgess CC CMA - 01/19/2018 9:34 AM PDTFaxed orders to [facility] [place]. Patient informed. RICHARD Hunter CMA elephone Lilo Santana - 01/19/2018 9:26 AM PDTPt calling stating needing a blood test before taking Contrast for MRI to check Kidney function. Pt would like a call back. Lilo Anderson documented in this encounter Plan of Treatment +--------+---------+ + + + | Date | Type | Specialty | Care Team | Description | +--------+---------+ + + + | 10/04/ | Office | Primary Care | Farooq Wesley | | | 2019 | Visit | | [address] | | | | | | [place] | | | | | | [address] | | | | | | [phone] | | | | | | | [...] the | | | | | | [place] [facility] | | | | | | [...] + + | Testing Performed at: [facility] CLIA: [id number] - [address] | REFERENCE LAB | | [place] [address] | [facility] | + + + + + + + + | Performing | Address | City/State/Zipcode | Phone Number | | Organization | | | | + + + + + | REFERENCE LAB | [address] | [place] | [phone] | | [facility] | | [address] | | + + + + + | REFERENCE LAB | [address] | [place] | [phone] | | [facility] | | [address] | | + + + + + [...] | | | LAB | | | (REF) | | | [facility] | | + [...] + + | Testing Performed at: [facility] CLIA: [id number] - [address] | REFERENCE LAB | | [place] [address] | [facility] | + + + + + + + + | Performing | Address | City/State/Zipcode | Phone Number | | Organization | | | | + + + + + | REFERENCE LAB | [address] | [place] | [phone] | | [facility] | | [address] | | + + + + + | REFERENCE LAB | [address] | [place] | [phone] | | [facility] | | [address] | | + + + + + documented in this encounter Visit Diagnoses Not on filedocumented in this encounter"
--- OUTSIDE RECORDS SUMMARY | ~2019-09-21 | XMS | Encounter Summary ---
Demographics + + + | Address | [address] | | | [place] [address] | + + + | Home Phone [...] + | Prashanth Vuong | ECON | [address] | | | | | [place] | | | | | [address] | | + + + + + Care Team Providers + +------+ + | Care Tin Assorter Name | Role | Phone | + +------+ + | Farooq Wesley DO | PCP | | + +------+ + Encounter Details +--------+---------+ + + + | Date | Type | Department | Care Team | Description | +--------+---------+ + + + | 04/23/ | Surgery | [facility] | Silvano Kaiser MD | EGD | | 2019 | | MED CTR MP INTRA OP | [address], [place] | | | | | [address] | [address] [place], [place] | | | | | [place], [place] | [address] | | | | | [address] | | | | | | [phone] | | | +--------+---------+ + + + [...] + + | Pulse | 49 | 04/23/2018 1:18 PM | | | [...] + | Oxygen Saturation | 99% | 04/23/2018 1:18 PM | | | [...] antacid medicine. Ask your healthcare provider about faaw-krx-lecxnta andp rescription medicines that may help. Ask about surgery, if needed. Surgery is a treatment choice for some people. Your health care provider can determine if surgery is an option for you. Date Last Reviewed: 12/22/201519995107-0889 [employer]. [address] [place] [address], [place] [address]. All righ ts reserved. This information is [...] that are mashed or put through a optical instrument inspector. In addition, you may need to avoid [...] treatment to prevent complications. Work with your [facility] provider to learn what you can do to protect your health. For more information, co ntact the [place] [employer],www.diabetes.org. Long-term concerns With treatment, most people can manage their symptoms and maintain their usual routines. If your symptoms are moderate to severe, you may need to see your healthcare provider more oft en for checkups. Also, other treatments will likely be needed. Date Last Reviewed: 10/04/201519992228-3446 [employer]. [address] [place] [address], [place] [address]. All righ ts reserved. This information is [...] heart rate Chest pain Date Last Reviewed: 03/21/201519991006-6025 [employer]. [address] [place] [address], [place] [address]. All righ ts reserved. This information is [...] tablet under | 25 | 11 | //20 | | | (NITROSTAT) 0.4 mg | [...] + documented as of this encounter H&P Silvano Franco MD - 04/23/2018 12:22 PM PSTThe patient has no questions consent form was s igned we'll proceed with upper endoscopy possible dilatation colonoscopyElectronically messi d by Silvano Kaiser MD at 04/23/2018 12:22 PM PSTHarri, Silvano Rose MD - 04/14/2018 2:30 PM PS T Lita Vuong is an 77 y.o. female. The patient is seen for evaluation of dysphagia diarrhea. Outside records are reviewed nimo or evaluation reviewed Patient complains of dysphagia for primarily meat in the lower esophageal area. She had on e episode of esophageal obstruction and was on the way to the emergency room before the [facility] e of dona ferroak released. She now is eating a very [...] she had a barium swallow done at [facility] in [place] multiple years ago. She does not feel as if she couldn't tolerate esophageal manometry catheter. Patient complains of diarrhea. By diarrhea she means runny stools. She'll have occasional episodes of urgency and incontinence. It's been going on for approximately 2 years. Resta urant foods seem to increase her symptoms particularly Nepalese or spicy foods. She will hav e [...] Hives and Swelling Cefazolin Hives and Rash Sewaren Hives and Rash Active Problems: * No [...] Schatzki's ring which was dilated to 60 Romansh via TTS technique. There was a small [...] Endoscopy Patient: Lita Vuong : 1940 Acct: [id number] Exam Date: Monday, April 23, 2018 Doctor: [...] If unable to reach your physician, call [facility] at [address]. [address] Your doctor [...] Exams Patient: Lita Vuong : 1940 Acct: [id number] Exam Date: Monday, April 23, 2018 Doctor: [...] If unable to reach your physician, call [facility] at [address] Your doctor [...] 2020 | Visit | | E, DO | | | | | | [place] | | | | | | [address] | | | | | | [phone] | | | | | | | [...] + + | Performed at: 01 - [facility] [address], | REFERENCE LAB | | [place], [place] [id number] Sterilization Specialist: Jose Jones MD, Phone: | [facility] | | [phone] | | + + + + + + + + | Performing | Address | City/State/Zipcode | Phone Number | | Organization | | | | + + + + + | REFERENCE LAB | [address] | [place], [place] | [phone] | | [facility] | [place] | [address] | | + + + + + [...] [place]. | [address] | [place] | [phone] | | [facility] | | [address] | | | - LABORATORY | | [...] | [address] | [place] | [phone] | | [facility] | | [address] | | | - LABORATORY | | [...] [address] | [place] | [phone] | | [facility] | | [address] | | | - LABORATORY | | [...] [address], | REFERENCE LAB | | [place] [id number] Sterilization Specialist: Jose Jones MD, Phone: | [facility] | | [phone] | | + + + + + + + + | Performing | Address | City/State/Zipcode | Phone Number | | Organization | | | | + + + + + | REFERENCE LAB | [address] | [place], [place] | [phone] | | [facility] | [place] | [address] | | + + + + + Lactoferrin, Fecal, Qual (04/23/2018 12:39 PM PST) + + + + + + | Component | Value | Ref Range | Performed | Pathologist | | | | | At | Signature | + + + + + + | Lactoferrin | Negative | Negative | [facility] | | | , Qual | | | [facility] | [...] [address] | [place] | [phone] | | [facility] | | [address] | | | - LABORATORY | | [...] [address] | [place] | [phone] | | [facility] | | [address] | | | - LABORATORY | | [...] + | [facility] | [address] | [place], [place] | [phone] | | [facility] | | [address] | | | - LABORATORY | | [...] + | [facility] | [address] | [place] | [phone] | | [facility] | | [address] | | | - LABORATORY | | [...] r pylori Ag | | | [facility] | | | | | | [...] + | [facility] | [address] | [place] | [phone] | | [facility] | | [address] | | | - LABORATORY | | | | + + + + + EGD (04/23/2018 12:13 PM PST) + + | Specimen | + + | | + + + + -+ | Narrative | Performed At | + + -+ | | [facility] | | GastroenterologyPatient Name: Lita VuongProcedure Date: 04/23/2018 | [facility] | | 12:13 PMMRN: [id number] #: [id number] of : | | | 1Admit Type: AmbulatoryAge: 77Room: [facility] 01Gender: FemaleNote | | | Status: FinalizedAttending MD: Silvano Kaiser , [facility]cedure: | | | Upper GI endoscopyIndications: Esophageal | | | dysphagiaProviders: Silvano Kaiser MD, Jeanette Womack, | | | RN, Willow Vergara, Road Freight Firer, Virgilio Grissom | | | MD Satish [...] the anesthesiologist and | | | the counter intelligence technician in the endoscopy suite. Mental Status [...] PMScope Out: | | | 12:31:45 PM [facility], [address] [place] [address] | | | [place] [address] | | | - Discharge patient to [...] |Scope Out: 12:31:45 PM | | | [facility], [address] [place] [address] | | | [address] | | + + -+ + +---------+ [...] At | + + -+ | | [facility] | | GastroenterologyPatient Name: Lita Velazquez Date: 04/23/2018 | [facility] | | 12:12 PMMRN: [id number] #: [id number] of : | | | 1940dmit Type: AmbulatoryAge: 77Room: [facility] 01Gender: FemaleNote | | | Status: FinalizedAttending MD: Silvano Kaiser MDProcedure: | | | ColonoscopyIndications: Chronic diarrheaProviders: | | | Silvano Kaiser MD, Jeanette Womack RN, Willow Vergara, | | | Road Freight Firer, Virgiilo Covarrubias MD (Anesthesia | | | Staff)Referring [...] | | | PMScope Out: 1:03:32 PM [facility], [address] | | [address] [place], [place] [address] | | | instructions were provided to [...] |Scope Out: 1:03:32 PM | | | [facility], [address] [place], [place] | | | [address] | | + + -+ + +---------+ [...] | | in a single cassette, (C1). [email or web address] PERFORMING LABORATORY: | | | The technical component was performed by [facility], [address] | | | [facility] [address] (Awning Finisher: Sharda Baxter MD; | | | CLIA# [id number]). Professional interpretation was performed by | | | [facility], [facility], [address] | | | [place] [address] (Awning Finisher: Grace Hill MD; | | | CLIA# [id number]). Diagnostician: Chip Chang MD | | | [...] | mL/hr | | | CONTINUOUS, Starting Thu04/23/18 | | AM PST | | | [...] ONCE | | | PRN, Nausea, Starting Thu04/23/18 | | | at 1310, For 1 dose, | | | Recovery/Phase I | | + +---+ | | | + +---+ documented in this encounter
--- OUTSIDE RECORDS SUMMARY | ~2019-09-21 | XMS | Encounter Summary ---
Demographics + + + | Address | [address] | | | [place] [address] | + + + | Home Phone [...] + | Prashanth Vuong | ECON | [address] | | | | | [place] | | | | | [address] | | + + + + + Care Team Providers + +------+ + | Care Electron Microscopist Name | Role | Phone | + +------+ + | Farooq Wesley DO | PCP | | + +------+ + Reason for Visit + +--------+ + | Reason | Onset | Comments | | | Date | | + +--------+ + | Appointment | 02/04/ | | | | 2019 | | + +--------+ + Encounter Details +--------+ + + + + | Date | Type | Department | Care Team | Description | +--------+ + + + + | 02/04/ | Telephone | [facility] | Maria G Burgess, CC | Appointment | | 2019 | | [facility] | [facility] | | | | | MEDICAL CLIN[facility] [address] | | | | | | [address] [facility], | | | | | | [place] [address] | | | | | | [phone] | | | +--------+ + + + [...] - Maria G Burgess CC CMA - 02/04/2019 3:49 PM PSTPatient has APPOINTME NT 02/08/2019, reminded patient to do non-fasting labs. Lab orders faxed again (just in dominik e). RICHARD Hunter CMA documented in this encounter [...] [place] | | | | | | [address] | | | | | | [phone] | | | | | | | | +--------+---------+ + + + documented as of this encounter Visit Diagnoses Not on filedocumented in this encounter"
--- OUTSIDE RECORDS SUMMARY | ~2019-09-21 | XMS | Encounter Summary ---
Demographics + + + | Address | [address] | | | [place] [address] | + + + | Home Phone [...] + | Prashanth Vuong | ECON | [address] | | | | | [place] | | | | | [address] | | + + + + + Care Team Providers + +------+ + | Care Shoemaker Apprentice Name | Role | Phone | + +------+ + | Farooq Wesley DO | PCP | | + +------+ + Encounter Details +--------+ + + + + | Date | Type | Department | Care Team | Description | +--------+ + + + + | 12/04/ | Hospital | [facility] | Damari Pike, | Essential | | 2016 | Encounter | CENTER OUTPATIENT | MD Esvin Barber | hypertension, | | | | WOUND CARE [address] | [place] [address] | hypertension with | | | | [address] [place], [place] | [place] [address] | unspecified goal; | | | | [address] | [phone] | Other specified | | | | [phone] | | hypothyroidism; | | | | [...] | | | | | | | 1503-5565 MG-UNIT | | | | | | [...] Progress Notes by Kym Bunch RN at 12/05/1543 Author: Kym Bunch RN Service: (none) Author Type: Registered Nurse Filed: 12/05/15 0844 Encounter Date: 12/05/2015 Status: Signed Grades 7 8 Tutor: Kym Bunch RN (Registered Nurse) Lita Vuong [...] MD Service: (none) Author Type: Physician Filed: 12/05/1520 Encounter Date: 12/05/2015 Status: Signed Grades 7 8 Tutor: Damari Pike MD (Physician) Subjective: Lita Vuong is a 75 y.o. female who presents for initial visit for wound care. sh e reports that the wound has been present for 2 months. Etiology of the wound includes: [facility]. Previous therapies to date include:Bacitracin ointment. Current [...] well as pertinent prior records and also Litadiomedes Mercedese joo's PMHx, PSHx, SOC Hx and FAMHx. I [...] MD 12/05/2015 documented in this e ncounter Miscellaneous Notes Miscellaneous - Conversion Transaction, Provider Unknown - 12/05/2015 9:15 AM PDTFormattin g of this note might be different from the original. Patient Instructions by Ilsa Pope RN at 12/05/15914 Author: Ilsa Pope RN Service: (none) Author Type: Registered Nurse Filed: 12/05/15915 Encounter Date: 12/05/2015 Status: Signed Grades 7 8 Tutor: Ilsa Pope RN (Registered Nurse) Congratulations! Your wound is healed. If you have any wound care questions, or experienc e a problem with continued healing, please call us, [facility], at [phone]. If a concern arises within 30 days of today, you will be scheduled as a returning pa tient. If it is beyond the 30 days, you will be scheduled as a new patient. The new skin is fragile, to protect it while it continues to mature and become stronger, pl ease follow the guidelines below. General wound site directions: Avoid prolonged pressure on the wound site Inspect skin daily for new breaks, redness, tenderness, unusual warmth. Report changes pro mptly to your primary care provider. Apply non-fragranced moisturizer to skin daily. However, do not put between toes or in ski n folds as this can cause irritation & breakdown. Foot Wounds: Wear proper fitting shoes with inserts. Obtain them from a scheduling manager or an client consultant. Wear white cotton socks without toe seams. Check shoes for objects that may have fallen into them prior to putting on. Do not soak feet. This dries them out. As well, if you have decreased sensation in your f eet, temperature of the water is difficult to assess which may result in miranda. Pressure Wounds: Use designed for pressure reduction products such as wheelchair, and bed mattress cushions. When repositioning, Lift-do not slide. This avoids shearing of skin. Do not massage reddened areas as this further aggravates damaged skin. Swelling of lower extremities: Wear the recommended compression device daily. Put them on first thing in the morning befo re swelling starts to worsen. Take them off when going to bed. These devices have a limited lifespan. Oh the date purchased on inside of cuff with a la conniery marker to know when need to replace. Replace them as often as manufacture recommends for full effectiveness. Other: Patient Signature /T michelle Nurse Signature / michelle docume nted in this encounter Plan of Treatment +--------+---------+ + + + | Date | Type | Specialty | Care Team | Description | +--------+---------+ + + + | 10/04/ | Office | Primary Care | Farooq Wesley | | | 2020 | Visit | | E, DO [address] | | | | | | [place] | | | | | | [address] | | | | | | [phone] | | | | | | | [...]
--- OUTSIDE RECORDS SUMMARY | ~2019-09-21 | XMS | Encounter Summary ---
Demographics + + + | Address | [address] | | | [place] [address] | + + + | Home Phone [...] Author | [facility] | + + + | Organization | [facility] | + + + | Address | Unknown | + + + | Phone | Unavailable | + + + Support + + +---------+ + | Name | Relationship | Address | Phone | + + +---------+ + | None None | ECON | Unknown | Unavailable | + + +---------+ + Care Team Providers + +------+ + | Care Resource Conservationist Name | Role | Phone | + [...] | | 2005 | | [facility] | | | | | | [address] | | | | | [address] | | | | | | [place], [address] [place] [address] | | | | | | [place], [place] | | | | | | [address] | | | | | | [phone] | | | +--------+ + + + [...]
--- OUTSIDE RECORDS SUMMARY | ~2019-09-21 | XMS | Encounter Summary ---
Demographics + + + | Address | [address] | | | [place] [address] | + + + | Home Phone [...] + | Prashanth Vuong | ECON | [address] | | | | | [place] | | | | | [address] | | + + + + + Care Team Providers + +------+ + | Care Director Systems Name | Role | Phone | + +------+ + PCP | Unavailable | + +------+ + Encounter Details +--------+ + + + + | Date | Type | Department | Care Team | Description | +--------+ + + + + | 08/19/ | Hospital | [facility] | Edwin Galloway | | | 2006 | Encounter | MED CTR SLEEP | MD Dai [address] | | | | | [place] [address] | [address] [place] | | | | | [place], [place] | [place] [address] | | | | | [address] | [phone] | | | | | [phone] | | | +--------+ + + + [...] [place] | | | | | | [address] | | | | | | [phone] | | | | | | | | +--------+---------+ + + + documented as of this encounter Visit Diagnoses Not on filedocumented in this encounter"
--- OUTSIDE RECORDS SUMMARY | ~2019-09-21 | XMS | Encounter Summary ---
Demographics + + + | Address | [address] | | | [place] [address] | + + + | Home Phone [...] + | Prashanth Vuong | ECON | [address] | | | | | [place] | | | | | [address] | | + + + + + Care Team Providers + +------+ + | Care Waste Machine Tender Name | Role | Phone | [...] | | GASTROENTEROLOGY | MD [address] [place] | | | | | [address] [place] | [address] [place], | | | | | [address] [place], [place] | [place] [address] | | | | | [address] | [phone] | | | | | [phone] | | | +--------+ + + + [...] | Visit | | DO [place] [address] | | | | | | [place] | | | | | | [address] | | | | | | [phone] | | | | | | | | +--------+---------+ + + + documented as of this encounter Visit Diagnoses Not on filedocumented in this encounter"
--- OUTSIDE RECORDS SUMMARY | ~2019-09-21 | XMS | Encounter Summary ---
Demographics + + + | Address | [address] | | | [place] [address] | + + + | Home Phone [...] + | Prashanth Vuong | ECON | [address] | | | | | [place] | | | | | [address] | | + + + + + Care Team Providers + +------+ + | Care Fireman Name | Role | Phone | + +------+ + | Farooq Wesley DO | PCP | | + +------+ + Reason for Visit +--------+--------+ + | Reason | Onset | Comments | | | Date | | +--------+--------+ + | Other | 09/20/ | please call back | | | 2019 | | +--------+--------+ + Encounter Details +--------+ + + + + | Date | Type | Department | Care Team | Description | +--------+ + + + + | 09/20/ | Telephone | [facility] | Farooq Wesley | Other (please call | | 2019 | | [facility] | E, DO [address] | back) | | | | MED[facility] CL[facility] [address] | [place], [place] | | | | [address] [place], | [address] | | | | | [place] [address] | [phone] | | | | | [phone] | | | +--------+ + + + [...] Encounter - Adina Kerns CC CMA - 09/20/2018 10:[address]jane Meyer ad vised patient to stop metoprolol today, her appt was reschedule to next Thursday at [address] RICH[address] Bolivar CMA elephone Viola Wells, Jonny Oconnor - 09/20/2018 8:02 AM PDTPt is asking for Mariah to call her in regards to stopping one of her medications and the stop date changing. Please call back. Jonny London ipp documented in this encoun ter Plan of Treatment +--------+---------+ + + + | Date | Type | Specialty | Care Team | Description | +--------+---------+ + + + | 10/04/ | Office | Primary Care | Farooq Wesley | | | 2019 | Visit | | E, DO [address] | | | | | | [place] | | | | | | [address] | | | | | | [phone] | | | | | | | | +--------+---------+ + + + documented as of this encounter Visit Diagnoses Not on filedocumented in this encounter"
--- OUTSIDE RECORDS SUMMARY | ~2019-09-21 | XMS | Encounter Summary ---
Demographics + + + | Address | [address] | | | [place] [address] | + + + | Home Phone [...] + | Prashanth Vuong | ECON | [address] | | | | | [place] | | | | | [address] | | + + + + + Care Team Providers + +------+ + | Care Balancing Machine Set Up Worker Name | Role | Phone | + +------+ + PCP | Unavailable | + +------+ + Encounter Details +--------+ + + + + | Date | Type | Department | Care Team | Description | +--------+ + + + + | 11/26/ | Hospital | [facility] | Silvano Kaiser MD | | | 1993 | Encounter | MED CTR GENERIC OP | [address], [place] | | | | | CONV DEPT [address] | [address] [place], [place] | | | | | [place], | [address] | | | | | [place] [address] | | | | | | [phone] | | | +--------+ + + + [...] [place] | | | | | | [address] | | | | | | [phone] | | | | | | | | +--------+---------+ + + + documented as of this encounter Visit Diagnoses Not on filedocumented in this encounter"
--- OUTSIDE RECORDS SUMMARY | ~2019-09-21 | XMS | Encounter Summary ---
Demographics + + + | Address | [address] | | | [place] [address] | + + + | Home Phone [...] + | Prashanth Vuong | ECON | [address] | | | | | [place] | | | | | [address] | | + + + + + Care Team Providers + +------+ + | Care Firer Diesel Locomotive Name | Role | Phone | + +------+ + | Farooq Wesley DO | PCP | | + +------+ + Reason for Visit +--------+ + | Reason | Comments | +--------+ + | Other | end of study | +--------+ + Encounter Details +--------+ + + + + | Date | Type | Department | Care Team | Description | +--------+ + + + + | 07/06/ | Documentati | [facility] | Ruth Quiles, | Other (end of study) | | 2020 | on | CARDIOLOGY ELSIE | Technologist | | | | | [address] | | | | | | [place] | | | | | | [address] | | | | | | [phone] | | | +--------+ + + + [...] documented as of this encounter Progress Notes Kb Ruth Anastasia, Technologist - 07/07/2019 11:59 PM PDT Cardiac Painter And Decorator Apprentice Date of Event Monitor: 07/07/19 Referring Physician: [place]: Lita Vuong : 1940 Age: 79 y.o. female INDICATIONS: Syncope and collapse FINDINGS: CONCLUSIONS: Associated attestation - Fahad Martinez MD - 08/12/2019 9:59 AM PDTA cardiac rhythm anal ysis was performed on 2 leads for 29 days, 21 hours, 4 minutes, corresponding to greater nika n 2.5 million beats. During the monitored time period, 93.2% of the total recording yielded tracings that were capable of being analyzed, which showed the following: The predominant rhythm was sinus, with an [...] normal sinus rhythm with mild sinus bradycardia. documented in this encounter Plan of Treatment +--------+---------+ + + + | Date | Type | Specialty | Care Team | Description | +--------+---------+ + + + | 10/04/ | Office | Primary Care | Farooq Wesley | | | 2019 | Visit | | DO [place] [address] | | | | | | [place] | | | | | | [address] | | | | | | [phone] | | | | | | | | +--------+---------+ + + + documented as of this encounter Visit Diagnoses + + | Diagnosis | + + | Syncope and collapse | + + documented in this encounter
--- OUTSIDE RECORDS SUMMARY | ~2019-09-21 | XMS | Encounter Summary ---
Demographics + + + | Address | [address] | | | [place] [address] | + + + | Home Phone [...] + | Prashanth Vuong | ECON | [address] | | | | | [place] | | | | | [address] | | + + + + + Care Team Providers + +------+ + | Care Stagecraft Teacher Name | Role | Phone | + +------+ + | Farooq Wesley DO | PCP | | + +------+ + Reason for Visit + +--------+ + | Reason | Onset | Comments | | | Date | | + +--------+ + | Appointment | 11/16/ | | | | 2013 | | + +--------+ + Encounter Details +--------+ + + + + | Date | Type | Department | Care Team | Description | +--------+ + + + + | 11/16/ | Telephone | [facility] | Silvano Kaiser MD | Appointment | | 2013 | | GASTROENTEROLOGY | [address] [place] | | | | | [address] [place] | [address] [place], [place] | | | | | [address] [place], [place] | [address] | | | | | [address] | | | | | | [phone] | | | +--------+ + + + [...] Telephone Encounter - Brenda Darling RN - 11/16/2013 10:53 AM PDTRecords received fr om Dr Wesley asking us to see pt for dysphagia. Called pt to offer repeat egd and she abbi es dysphagia but states wants to see Dr Kaiser for diarrhea and stomach pain. Call transferre d to [facility] for scheduling. 10:5 5 AM PDTdocumented in this encounter Plan [...] [place] | | | | | | [address] | | | | | | [phone] | | | | | | | | +--------+---------+ + + + documented as of this encounter Visit Diagnoses Not on filedocumented in this encounter"
--- OUTSIDE RECORDS SUMMARY | ~2019-09-21 | XMS | Encounter Summary ---
Demographics + + + | Address | [address] | | | [place] [address] | + + + | Home Phone [...] + | Prashanth Vuong | ECON | [address] | | | | | [place] | | | | | [address] | | + + + + + Care Team Providers + +------+ + | Care Assembler Tester Name | Role | Phone | + +------+ + PCP | Unavailable | + +------+ + Encounter Details +--------+ + + + + | Date | Type | Department | Care Team | Description | +--------+ + + + + | 03/13/ | Hospital | [facility] | Silvano Kaiser MD | | | 1997 | Encounter | MED CTR XRAY [address] | [address] [place] | | | | | [place] | [address] [place] | | | | | [place], [place] [address] | [address] | | | | | [phone] | | | +--------+ + + + [...] [place] | | | | | | [address] | | | | | | [phone] | | | | | | | | +--------+---------+ + + + documented as of this encounter Visit Diagnoses Not on filedocumented in this encounter"
--- OUTSIDE RECORDS SUMMARY | ~2019-09-21 | XMS | Encounter Summary ---
Demographics + + + | Address | [address] | | | [place] [address] | + + + | Home Phone [...] + | Prashanth Vuong | ECON | [address] | | | | | [place] | | | | | [address] | | + + + + + Care Team Providers + +------+ + | Care Traffic Police Officer Name | Role | Phone | + +------+ + | Farooq Wesley DO | PCP | | + +------+ + Reason for Visit +--------+--------+ + | Reason | Onset | Comments | | | Date | | +--------+--------+ + | Other | 12/17/ | mychart message | | | 2018 | | +--------+--------+ + Encounter Details +--------+ + + + + | Date | Type | Department | Care Team | Description | +--------+ + + + + | 12/17/ | Telephone | [facility] | Farooq Wesley | Other (mychart | | 2018 | | [facility] | E, DO [address] | message) | | | | MEDICAL CLINIC [address] | [place], [place] | | | | | [address] [place], | [address] | | | | | [place] [address] | [phone] | | | | | [phone] | | | +--------+ + + + [...] Telephone Encounter - Maria G Burgess CC ORACLE ADF DEVELOPER - 12/17/2017 5:11 PM PDTNothing found that wa s sent by Dr. Wesley, patient informed. RICHARD Hunter CMA elephone Uzma Zamudio Tawny - 12/17/2017 3:48 PM PDTPt states she received notification on Pricefallshart f rom Dr. Wesley and states she is unable to access [facility] at this time and was calling to s ee what the message was. Please call pt to advise Thanks Uzma documented in t his encounter [...] [place] | | | | | | [address] | | | | | | [phone] | | | | | | | | +--------+---------+ + + + documented as of this encounter Visit Diagnoses Not on filedocumented in this encounter"
--- OUTSIDE RECORDS SUMMARY | ~2019-09-21 | XMS | Encounter Summary ---
Demographics + + + | Address | [address] | | | [place] [address] | + + + | Home Phone [...] + | Prashanth Vuong | ECON | [address] | | | | | [place] | | | | | [address] | | + + + + + Care Team Providers + +------+ + | Care Bonding Supervisor Name | Role | Phone | + +------+ + PCP | Unavailable | + +------+ + Encounter Details +--------+ + + + + | Date | Type | Department | Care Team | Description | +--------+ + + + + | 03/05/ | Hospital | [facility] | Silvano Kaiser MD | | | 1997 | Encounter | MED CTR XRAY [address] | [address] [place] [place] | | | | | [place] | [address] [place] | | | | | [place], [place] [address] | [address] | | | | | [phone] | | | +--------+ + + + [...] [place] | | | | | | [address] | | | | | | [phone] | | | | | | | | +--------+---------+ + + + documented as of this encounter Visit Diagnoses Not on filedocumented in this encounter"
[2019-09-21] MEDS ORDERED: LOSARTAN-HCTZ1 EACH PO (05:48)
--- NOTE | 2019-09-21 16:39 | EKG ---
[facility] [address] [place], [place] [address] Signed Normal sinus rhythm Normal ECG When compared with ECG of 21-SEP-2019 05:35, (Unconfirmed) No significant change was found Confirmed by ELIEZER BRICE DO ([id number]) on 09/21/2019 4:39:21 PM Electronically Signed By: ELIEZER BRICE DO 09/21/19 1639 PATIENT NAME: JACINTODIANELILIAN SEGOVIA Electrocardiogram DATE OF : 40 PHYSICIAN: ELIEZER BRICE DO REPORT #: [id number] REPORT IS CONFIDENTIAL AND NOT TO BE RELEASED WITHOUT AUTHORIZATION
--- NOTE | 2019-09-21 16:39 | EKG ---
[facility] [address] [facility] [address] [facility] [place], [place] [address] Signed Normal sinus rhythm Normal ECG When compared with ECG of 09-FEB-2019 07:32, No significant change was found Confirmed by ELIEZER BRICE DO ([id number]) on 09/21/2019 4:39:17 PM Electronically Signed By: ELIEZER BRICE DO 09/21/19 1639 PATIENT NAME: DIANE CASEY JULIETTE Electrocardiogram DATE OF : 40 PHYSICIAN: ELIEZER BRICE DO REPORT #: [id number] REPORT IS CONFIDENTIAL AND NOT TO BE RELEASED WITHOUT AUTHORIZATION
== END 2019-09-21 12:26 | disposition home or self-care (01) ==
LOC: ED 05:29
DX: R07.9 Chest pain, unspecified (principal); I10 Essential (primary) hypertension; E11.9 Type 2 diabetes mellitus without complications; E03.9 Hypothyroidism, unspecified; Z91.041 Radiographic dye allergy status; Z88.2 Allergy status to sulfonamides; Z91.018 Allergy to other foods; Z88.0 Allergy status to penicillin; Z91.09 Other allergy status, other than to drugs and biological substances; Z88.8 Allergy status to other drugs, medicaments and biological substances; Z79.899 Other long term (current) drug therapy; Z79.82 Long term (current) use of aspirin
CPT/HCPCS: 71045; 80053; 83735; 84484; 85025; 93005; 93010; 96374; 96375; 99285-25; J2405

== ENCOUNTER 2020-12-17 15:32 | Emergency (ER) | payer OTHER, MEDICARE ==
[~2020-12-17] VITALS: Ht 154.9 cm; Wt 62.1 kg
[~2020-12-17 15:32] MED LIST changes: +LOSARTAN-HCTZ1 EACH PO
[2020-12-17] MEDS ORDERED: HYDROCHLOROTH12.5 MG PO (18:20)
== END 2020-12-17 23:24 | disposition home or self-care (01) ==
LOC: ED 15:32
DX: S06.5X0A Traumatic subdural hemorrhage without loss of consciousness, initial encounter (principal); I10 Essential (primary) hypertension; E11.9 Type 2 diabetes mellitus without complications; E03.9 Hypothyroidism, unspecified; Z91.041 Radiographic dye allergy status; W01.10XA Fall on same level from slipping, tripping and stumbling with subsequent striking against unspecified object, initial encounter; Z20.822 Contact with and (suspected) exposure to COVID-19; Z88.2 Allergy status to sulfonamides; Z88.0 Allergy status to penicillin; Z91.018 Allergy to other foods; Z88.6 Allergy status to analgesic agent; Z88.1 Allergy status to other antibiotic agents; Z79.82 Long term (current) use of aspirin; Z79.899 Other long term (current) drug therapy
CPT/HCPCS: 70450; 72125; 80053; 85025; 85610; 85730; 99285-25; C9803; U0003

== ENCOUNTER 2021-01-06 08:07 | Emergency (ER) | payer MEDICARE, OTHER ==
[~2021-01-06] VITALS: Ht 154.9 cm; Wt 64.5 kg
[~2021-01-06 08:07] MED LIST changes: +HYDROCHLOROTH12.5 MG PO
--- OUTSIDE RECORDS SUMMARY | 2021-01-07 13:05 | XMS ---
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 Teresa VISIT COUNT (12 MO.) 2 [facility] TOTAL 2 NOTE: Visits indicate total known visits. ED/UCC VISIT TRACKING (12 MO.) 01/06/2021 08:08 [facility] [place] TYPE: Emergency COMPLAINT: - PRESSURE IN RIGHT, HEADACHE 12/17/2020 15:33 [facility] [place] TYPE: Emergency COMPLAINT: - FALL, HEAD HIT DIAGNOSES: - Type 2 diabetes mellitus without complications - Allergy status to penicillin - Allergy status to sulfonamides - Fall on same level from slipping, tripping and stumbling with subsequent striking against unspecified object, initial encounter - Hypothyroidism, unspecified - Allergy status to other antibiotic agents - Essential (primary) hypertension - Radiographic dye allergy status - Allergy to other foods - 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
== END 2021-01-06 11:09 | disposition short-term general hospital (02) ==
LOC: ED 08:07
DX: I62.01 Nontraumatic acute subdural hemorrhage (principal); I62.03 Nontraumatic chronic subdural hemorrhage; U07.1 COVID-19; I10 Essential (primary) hypertension; E11.9 Type 2 diabetes mellitus without complications; Z91.041 Radiographic dye allergy status; Z88.2 Allergy status to sulfonamides; Z88.0 Allergy status to penicillin; Z91.018 Allergy to other foods; Z88.6 Allergy status to analgesic agent; Z88.1 Allergy status to other antibiotic agents; Z79.899 Other long term (current) drug therapy
CPT/HCPCS: 70450; 80053; 85025; 85610; 85730; 96374; 99285-25; C9803; J0360; U0003

== ENCOUNTER 2021-04-03 11:18 | Emergency (ER) | payer MEDICARE, OTHER ==
[~2021-04-03] VITALS: Ht 154.9 cm; Wt 61.2 kg
[2021-04-03] MEDS ORDERED: LOSARTAN POTASS25 MG PO (11:47)
[2021-04-03] MEDS ORDERED: NEXIUM 24HR20 M2 PO (11:48)
[2021-04-03] MEDS ORDERED: HYDRALAZINE HCL10 MG PO (13:58)
--- NOTE | 2021-04-04 12:51 | EKG ---
[facility] [address] [place], [place] [address] Signed Sinus bradycardia Nonspecific ST abnormality Abnormal ECG When compared with ECG of 21-SEP-2019 09:20, ST now depressed in Lateral leads Confirmed by ELIEZER BRICE DO ([id number]) on 04/04/2021 12:51:39 PM Electronically Signed By: ELIEZER BRICE DO 04/04/21 1251 PATIENT NAME: JACINTODIANE RUTH Electrocardiogram DATE OF : 40 PHYSICIAN: ELIEZER BRICE DO REPORT #: [id number] REPORT IS CONFIDENTIAL AND NOT TO BE RELEASED WITHOUT AUTHORIZATION
== END 2021-04-03 14:15 | disposition home or self-care (01) ==
LOC: ED 11:18
DX: M25.512 Pain in left shoulder (principal); I10 Essential (primary) hypertension; E11.9 Type 2 diabetes mellitus without complications; E03.9 Hypothyroidism, unspecified; Z88.8 Allergy status to other drugs, medicaments and biological substances; Z88.0 Allergy status to penicillin; Z88.2 Allergy status to sulfonamides; Z91.041 Radiographic dye allergy status; Z91.018 Allergy to other foods; Z79.899 Other long term (current) drug therapy
CPT/HCPCS: 71045; 80048; 83735; 84484; 85025; 93005; 93010; 99284-25

== ENCOUNTER 2021-05-03 07:29 | Emergency (ER) | payer MEDICARE, OTHER ==
[~2021-05-03] VITALS: Ht 154.9 cm; Wt 61.7 kg
[~2021-05-03 07:29] MED LIST changes: +HYDRALAZINE HCL10 MG PO; +LOSARTAN POTASS25 MG PO; +NEXIUM 24HR20 M2 PO
--- OUTSIDE RECORDS SUMMARY | 2021-05-03 07:37 | XMS ---
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 Teresa VISIT COUNT (12 MO[address] 1 [facility] 5 [facility]. TOTAL 6 NOTE: Visits indicate total known visits. ED/UCC VISIT TRACKING (12 MO.) 05/03/2021 07:30 [facility] [place] TYPE: Emergency COMPLAINT: - HEAD PAIN 04/29/2021 18:16 [facility] [place] TYPE: Emergency COMPLAINT: - BLOOD PRESSURE PROBLEM 04/03/2021 11:19 [facility] [place] TYPE: Emergency COMPLAINT: - L JAW/ARM PAIN DIAGNOSES: - Pain in left arm - Other senior living (current) drug therapy - Pain in left shoulder - Radiographic dye allergy status - Allergy to other foods - Allergy status to other drugs, medicaments and biological substances - Type 2 diabetes mellitus without complications - Allergy status to sulfonamides - Essential (primary) hypertension - Hypothyroidism, unspecified - Allergy status to penicillin 02/14/2021 11:36 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
== END 2021-05-03 09:49 | disposition home or self-care (01) ==
LOC: ED 07:29
DX: R51.9 Headache, unspecified (principal); I10 Essential (primary) hypertension; E11.9 Type 2 diabetes mellitus without complications; E03.9 Hypothyroidism, unspecified; Z88.2 Allergy status to sulfonamides; Z88.0 Allergy status to penicillin; Z88.8 Allergy status to other drugs, medicaments and biological substances; Z91.018 Allergy to other foods
CPT/HCPCS: 70450; 99284-25

== ENCOUNTER 2022-02-16 10:51 | Emergency (ER) | payer MEDICARE, OTHER ==
[~2022-02-16] VITALS: Ht 154.9 cm; Wt 59.7 kg
[2022-02-16] MEDS ORDERED: CRESTOR10 MG PO (12:15)
[2022-02-16] MEDS ORDERED: SYNTHROID75 MCG PO (13:58)
[2022-02-16] MEDS ORDERED: MICARDIS80 MG PO (13:58)
[2022-02-16] MEDS ORDERED: CYMBALTA20 MG PO (13:59)
== END 2022-02-16 17:29 | disposition home or self-care (01) ==
LOC: ED 10:51
DX: I10 Essential (primary) hypertension (principal); R51.9 Headache, unspecified; E11.9 Type 2 diabetes mellitus without complications; E03.9 Hypothyroidism, unspecified; Z88.2 Allergy status to sulfonamides; Z91.018 Allergy to other foods; Z88.0 Allergy status to penicillin; Z91.048 Other nonmedicinal substance allergy status; Z88.8 Allergy status to other drugs, medicaments and biological substances; Z79.899 Other long term (current) drug therapy
CPT/HCPCS: 70450; 81001; 99284-25

== ENCOUNTER 2022-07-25 23:09 | Emergency (ER) | payer MEDICARE, OTHER ==
[~2022-07-25] VITALS: Ht 154.9 cm; Wt 60.0 kg
[~2022-07-25 23:09] MED LIST changes: +CRESTOR10 MG PO; +CYMBALTA20 MG PO; +MICARDIS80 MG PO
[2022-07-26 00:42] VITALS: BP 143/65
== END 2022-07-26 00:42 | disposition home or self-care (01) ==
LOC: ED 23:09
DX: R42 Dizziness and giddiness (principal); I10 Essential (primary) hypertension; E11.9 Type 2 diabetes mellitus without complications; E03.9 Hypothyroidism, unspecified; Z88.8 Allergy status to other drugs, medicaments and biological substances; Z88.2 Allergy status to sulfonamides; Z91.018 Allergy to other foods; Z91.041 Radiographic dye allergy status; Z79.899 Other long term (current) drug therapy
CPT/HCPCS: 36415; 70450; 80053; 83735; 85025; 99284-25

== ENCOUNTER 2023-01-07 16:09 | Emergency (ER) | payer MEDICARE, OTHER ==
[~2023-01-07] VITALS: Ht 154.9 cm; Wt 60.0 kg
[2023-01-07] MEDS ORDERED: HYDRALAZINE HCL10 MG (16:25)
[2023-01-07] MEDS ORDERED: NITROGLYCERIN0.4 MG SL (16:25)
[2023-01-07] MEDS ORDERED: BETAMETHASONE V15 G1 (16:26)
[2023-01-07] MEDS ORDERED: KETOROLAC TROMET3 ML OD (16:26)
[2023-01-07 16:58] LABS: BASOPHILS 0.5 % (0-2); EOSINOPHILS 0.4 % (0-6); HEMATOCRIT 32.4 % (35.0-50.0); HEMOGLOBIN 11.1 g/dL (12.0-18.0); LYMPHOCYTES 30.1 % (24-44); MCH 32.1 (27-36); MCHC 34.3 g/dl (30-36); MCV 93.4 fl (81-99); MONOCYTES 16.6 % (0-12); NEUTROPHILS 52.4 % (39-80); PLATELET COUNT 198 K/uL (140-440); RBC 3.47 M/ul (4.3-5.7); RDW 13.2 (10.5-15.0)
[2023-01-07 17:14] LABS: ALBUMIN 3.7 g/dL (3.4-5.0); ALBUMIN/GLOBULIN RATIO 1.32 (1.1-2.4); ANION GAP 11.1 (7-21); BILIRUBIN, TOTAL 0.8 ng/dL (0.2-1.0); BUN/CREATININE RATIO 14.28 (6.0-28.6); CALCIUM 8.6 mg/dL (8.5-10.1); CREATININE, SERUM 0.98 mg/dL (0.55-1.02); MAGNESIUM 1.9 mg/dL (1.8-2.4); POTASSIUM 4.1 mmol/L (3.5-5.1); PROTEIN, TOTAL 6.5 g/dL (6.4-8.2)
[2023-01-07 19:04] VITALS: BP 192/82
--- NOTE | 2023-01-07 20:44 | EKG ---
[facility] [address] [place] [address] Signed Sinus bradycardia Otherwise normal ECG When compared with ECG of 03-APR-2021 11:28, ST no longer depressed in Lateral leads Confirmed by Chris Tavarez MD () on 01/07/2023 8:44:49 PM Electronically Signed By: CHRIS TAVAREZ MD 01/07/232043 PATIENT NAME: DIANE CASEY JULIETTE Electrocardiogram DATE OF : 40 PHYSICIAN: CHRIS TAVAREZ MD REPORT #: [id number] REPORT IS CONFIDENTIAL AND NOT TO BE RELEASED WITHOUT AUTHORIZATION
== END 2023-01-07 19:04 | disposition home or self-care (01) ==
LOC: ED 16:09
PROVIDERS: Emergency Medicine
DX: R07.89 Other chest pain (principal); I10 Essential (primary) hypertension; E11.9 Type 2 diabetes mellitus without complications; E03.9 Hypothyroidism, unspecified; Z91.041 Radiographic dye allergy status; Z88.0 Allergy status to penicillin; Z88.2 Allergy status to sulfonamides; Z88.6 Allergy status to analgesic agent; Z88.8 Allergy status to other drugs, medicaments and biological substances; Z91.018 Allergy to other foods; Z79.890 Hormone replacement therapy; Z79.899 Other long term (current) drug therapy
CPT/HCPCS: 36415; 71045; 80053; 83735; 84484; 85025; 93005; 93010; 99285-25; A9270

== ENCOUNTER 2023-10-11 06:04 | Emergency (ER) | payer MEDICARE, OTHER ==
[~2023-10-11] VITALS: Ht 154.9 cm; Wt 55.2 kg
--- OUTSIDE RECORDS SUMMARY | ~2023-10-11 | XMS | Continuity of Care Document ---
Demographics + + + | Address | [address] | | | [place] [address] | + + + | Preferred Language | Unknown | + + + | Marital Status | Unknown | + + + | Bahai Affiliation | Unknown | + + + | Race | White | + + + | Ethnic Group | Not or | + + + Author + + + | Author | [facility] | + + + | Organization | [facility] | + + + | Address | [address] | | | [place] [address] | + + + | Phone | | + + + Care Team Providers + + + + | Care Controls Project Engineer Name | Role | Phone | + + + + Unavailable | Unavailable | + + + + Allergies No information. Encounters No information. Functional Status No information. Immunizations No information. Medications No information. Problems + + + + | date | description | facility | + + + + | 2023-07-14 23:58:48 | Fracture of neck, | [facility] | | | unspecified, initial | | | | encounter | | + + + + | 2023-07-18 13:51:04 | Syncope and collapse | [facility] | + + + + | 2023-07-18 13:51:04 | Unspecified displaced | [facility] | | | fracture of second cervical | | | | vertebra, initial | | | | encounter for closed | | | | fracture | | + + + + Procedures No information. Results/Labs No information. Social History +--------+ + + | date | description | facility | +--------+ + + Vital Signs No information."
[~2023-10-11 06:04] MED LIST changes: +BETAMETHASONE V15 G1; +HYDRALAZINE HCL10 MG; +KETOROLAC TROMET3 ML OD; +NITROGLYCERIN0.4 MG SL
[2023-10-11 06:48] LABS: BASOPHILS 0.6 % (0-2); EOSINOPHILS 2.1 % (0-6); HEMATOCRIT 36.2 % (35.0-50.0); HEMOGLOBIN 12.3 g/dL (12.0-18.0); LYMPHOCYTES 32.5 % (24-44); MCH 31.7 (27-36); MCV 93.2 fl (81-99); MONOCYTES 22.8 % (0-12); PLATELET COUNT 244 K/uL (140-440); RBC 3.89 M/ul (4.3-5.7); RDW 13.5 (10.5-15.0)
[2023-10-11 07:07] LABS: INFLUENZA B NAA NEGATIVE (NEGATIVE); RESPIRATORY SYNCYTIAL VIR NAA NEGATIVE (NEGATIVE)
[2023-10-11 07:11] LABS: ALBUMIN 3.5 g/dL (3.4-5.0); ALBUMIN/GLOBULIN RATIO 0.97 (1.1-2.4); ANION GAP 11.6 (7-21); BILIRUBIN, TOTAL 0.6 ng/dL (0.2-1.0); BUN/CREATININE RATIO 10.98 (6.0-28.6); CALCIUM 8.8 mg/dL (8.5-10.1); CREATININE, SERUM 0.91 mg/dL (0.55-1.02); POTASSIUM 3.6 mmol/L (3.5-5.1); PROTEIN, TOTAL 7.1 g/dL (6.4-8.2)
[2023-10-11] MEDS ORDERED: diphenhydrAMINE HCL 50 MG/ML VIAL IV ONE (07:30)
[2023-10-11] MEDS ORDERED: methylPREDNISolone SOD SUCC 125 MG/2 ML VIAL IV ONE (07:30)
[2023-10-11] MEDS ORDERED: hydrALAZINE HCL 10 MG TABLET PO ONE (08:30)
[2023-10-11] MEDS ORDERED: VENTOLIN HFA18 GM INH (09:23)
[2023-10-11 09:26] VITALS: BP 161/68
--- NOTE | 2023-10-12 11:27 | EKG ---
[facility] [address] [place], [place] [address] Signed Normal sinus rhythm Possible Anterior infarct , age undetermined Abnormal ECG When compared with ECG of 14-JUL-2023 17:49, No significant change was found Confirmed by ANDERSON VERAS MD ([id number]) on 10/12/2023 11:26:59 AM Electronically Signed By: ANDERSON VERAS 10/12/23 1127 PATIENT NAME: DIANE CASEY JULIETTE Electrocardiogram DATE OF : 40 PHYSICIAN: ANDERSON VERAS REPORT #: [id number] REPORT IS CONFIDENTIAL AND NOT TO BE RELEASED WITHOUT AUTHORIZATION
== END 2023-10-11 09:26 | disposition home or self-care (01) ==
LOC: ED 06:04
PROVIDERS: Internal Medicine
DX: J06.9 Acute upper respiratory infection, unspecified (principal); I10 Essential (primary) hypertension; E11.9 Type 2 diabetes mellitus without complications; Z96.651 Presence of right artificial knee joint; Z91.041 Radiographic dye allergy status; Z88.2 Allergy status to sulfonamides; Z88.0 Allergy status to penicillin; Z88.8 Allergy status to other drugs, medicaments and biological substances; Z79.890 Hormone replacement therapy; Z79.899 Other long term (current) drug therapy
CPT/HCPCS: 36415; 71045; 71260; 80053; 83880; 84443; 84484; 85025; 85379; 87502; 93005; 93010; 96375; 99285-25; J1200; J2919; Q9967; U0002

== ENCOUNTER 2023-12-28 12:13 | Emergency (ER) | payer MEDICARE, OTHER ==
[~2023-12-28] VITALS: Ht 154.9 cm; Wt 58.0 kg
[~2023-12-28 12:13] MED LIST changes: +VENTOLIN HFA18 GM INH
[2023-12-28] MEDS ORDERED: ASPIRIN81 MG PO (12:27)
[2023-12-28] MEDS ORDERED: ZESTRIL40 MG PO (12:28)
[2023-12-28 13:00] LABS: BASOPHILS 0.4 % (0-2); EOSINOPHILS 0.4 % (0-6); HEMATOCRIT 36.8 % (35.0-50.0); HEMOGLOBIN 12.7 g/dL (12.0-18.0); MCH 31.6 (27-36); MCHC 34.5 g/dl (30-36); MCV 91.7 fl (81-99); MONOCYTES 12.4 % (0-12); NEUTROPHILS 68.8 % (39-80); PLATELET COUNT 215 K/uL (140-440); RBC 4.01 M/ul (4.3-5.7); RDW 13.3 (10.5-15.0)
[2023-12-28 13:17] LABS: ALBUMIN 3.3 g/dL (3.4-5.0); ALBUMIN/GLOBULIN RATIO 0.97 (1.1-2.4); ANION GAP 11.2 (7-21); BILIRUBIN, TOTAL 0.6 ng/dL (0.2-1.0); BUN/CREATININE RATIO 16.49 (6.0-28.6); CALCIUM 8.3 mg/dL (8.5-10.1); CREATININE, SERUM 0.97 mg/dL (0.55-1.02); POTASSIUM 4.2 mmol/L (3.5-5.1); PROTEIN, TOTAL 6.7 g/dL (6.4-8.2)
[2023-12-28 14:09] LABS: BILIRUBIN, URINE NEGATIVE (negative); BLOOD/HGB, URINE NEGATIVE (Negative); KETONE, URINE NEGATIVE (Negative); LEUK ESTERASE, URINE NEGATIVE (negative); NITRITE, URINE NEGATIVE (negative); PH, URINE 6.5 (5-7)
[2023-12-28 15:33] VITALS: BP 172/69
--- NOTE | 2023-12-30 15:47 | EKG ---
[facility] [address] [place] [address] Signed Sinus bradycardia Minimal voltage criteria for LVH, may be normal variant ( Leonidas product ) Borderline ECG When compared with ECG of 11-OCT-2023 06:18, No significant change was found Confirmed by Joseph Capellan MD ([id number]) on 12/30/2023 3:47:07 PM Electronically Signed By: JOSEPH CAPELLAN MD 12/30/23 1547 PATIENT NAME: DIANE CASEY JULIETTE Electrocardiogram DATE OF : 40 PHYSICIAN: JOSEPH CAPELLAN MD REPORT #: [id number] REPORT IS CONFIDENTIAL AND NOT TO BE RELEASED WITHOUT AUTHORIZATION
== END 2023-12-28 15:46 | disposition home or self-care (01) ==
LOC: ED 12:13
PROVIDERS: Emergency Medicine
DX: R55 Syncope and collapse (principal); E11.65 Type 2 diabetes mellitus with hyperglycemia; I10 Essential (primary) hypertension; E03.9 Hypothyroidism, unspecified; Z79.82 Long term (current) use of aspirin; Z79.899 Other long term (current) drug therapy; Z79.890 Hormone replacement therapy; Z91.041 Radiographic dye allergy status; Z88.0 Allergy status to penicillin; Z88.2 Allergy status to sulfonamides; Z88.8 Allergy status to other drugs, medicaments and biological substances; Z91.018 Allergy to other foods
CPT/HCPCS: 36415; 51701; 70450; 71045; 72125; 73130; 80053; 81003; 83880; 84484; 85025; 93005; 93010; 99285-25

== ENCOUNTER 2024-09-18 08:56 | Emergency (ER) | payer MEDICARE, OTHER ==
[~2024-09-18] VITALS: Ht 154.9 cm; Wt 48.0 kg
[~2024-09-18 08:56] MED LIST changes: +ASPIRIN81 MG PO; +ZESTRIL40 MG PO
[2024-09-18] MEDS ORDERED: SYNTHROID50 MCG PO (09:21)
[2024-09-18] MEDS ORDERED: ROSUVASTATIN CA10 MG PO (09:22)
[2024-09-18 09:34] LABS: BASOPHILS 0.3 % (0.1-1.2); EOSINOPHILS 0.3 % (0.7-5.8); HEMATOCRIT 40.4 % (34.1-44.9); HEMOGLOBIN 12.9 g/dL (11.2-15.7); LYMPHOCYTES 33.3 % (19.3-51.7); MCH 30.1 PG (25.6-32.2); MCHC 31.9 g/dL (32.2-35.5); MCV 94.2 fL (79.4-94.8); MONOCYTES 15.7 % (4.7-12.5); NEUTROPHILS 48.9 % (34.0-71.1); PLATELET COUNT 246 K/uL (182-369); RBC 4.29 M/uL (3.93-5.22)
[2024-09-18 09:43] LABS: ALBUMIN 3.5 g/dL (3.4-5.0); ALBUMIN/GLOBULIN RATIO 0.97 (1.1-2.4); ANION GAP 14.6 (7-21); BILIRUBIN, TOTAL 0.7 mg/dL (0.2-1.0); BUN/CREATININE RATIO 11.42 (6.0-28.6); CALCIUM 8.4 mg/dL (8.5-10.1); CREATININE, SERUM 1.05 mg/dL (0.55-1.02); POTASSIUM 3.6 mmol/L (3.5-5.1); PROTEIN, TOTAL 7.1 g/dL (6.4-8.2)
[2024-09-18 11:35] VITALS: BP 174/73
--- NOTE | 2024-09-18 12:19 | EKG ---
[facility] [address] [facility] [place] [address] Signed Sinus bradycardia Otherwise normal ECG When compared with ECG of 28-DEC-2023 12:38, No significant change was found Confirmed by Hamilton Johns DO ([id number]) on 09/18/2024 12:18:58 PM Electronically Signed By: HAMILTON JOHNS DO 09/18/24 1219 PATIENT NAME: DIANE CASEY JULIETTE Electrocardiogram DATE OF : 40 PHYSICIAN: HAMILTON JOHNS DO REPORT #: [id number] REPORT IS CONFIDENTIAL AND NOT TO BE RELEASED WITHOUT AUTHORIZATION
== END 2024-09-18 11:35 | disposition home or self-care (01) ==
LOC: ED 08:56
PROVIDERS: Emergency Medicine
DX: R56.9 Unspecified convulsions (principal); I10 Essential (primary) hypertension; E11.9 Type 2 diabetes mellitus without complications; Z79.82 Long term (current) use of aspirin; Z79.899 Other long term (current) drug therapy; Z91.041 Radiographic dye allergy status; Z88.1 Allergy status to other antibiotic agents; Z88.8 Allergy status to other drugs, medicaments and biological substances; Z88.2 Allergy status to sulfonamides; Z91.018 Allergy to other foods
CPT/HCPCS: 36415; 70450; 80053; 85025; 93005; 93010; 99284-25

== ENCOUNTER 2024-11-23 01:39 | Emergency (ER) | payer OTHER, MEDICARE ==
[~2024-11-23] VITALS: Ht 152.4 cm; Wt 55.0 kg
[~2024-11-23 01:39] MED LIST changes: +ROSUVASTATIN CA10 MG PO; +SYNTHROID50 MCG PO
[2024-11-23] MEDS ORDERED: CLONIDINE1 EACH TD (01:55)
[2024-11-23] MEDS ORDERED: DIPHTH,PERTUSS(ACELL),TET VAC 0.5 ML SYRINGE IM ONE (02:15)
[2024-11-23 03:15] VITALS: BP 117/54
== END 2024-11-23 03:15 | disposition home or self-care (01) ==
LOC: ED 01:39
DX: S01.01XA Laceration without foreign body of scalp, initial encounter (principal); S16.1XXA Strain of muscle, fascia and tendon at neck level, initial encounter; W01.190A Fall on same level from slipping, tripping and stumbling with subsequent striking against furniture, initial encounter; I10 Essential (primary) hypertension; E11.9 Type 2 diabetes mellitus without complications; E03.9 Hypothyroidism, unspecified; Z23 Encounter for immunization; Z88.2 Allergy status to sulfonamides; Z91.041 Radiographic dye allergy status; Z91.018 Allergy to other foods; Z88.0 Allergy status to penicillin; Z88.8 Allergy status to other drugs, medicaments and biological substances; Z79.82 Long term (current) use of aspirin; Z79.890 Hormone replacement therapy; Z79.899 Other long term (current) drug therapy
CPT/HCPCS: 70450; 72125; 90471; 90715; 99283-25